=== PATIENT | female | born 1965 | race Caucasian/White ===

== ENCOUNTER 2017-09-08 14:20 | Emergency (ER) | payer BC ==
[2017-09-08] MEDS ORDERED: SODIUM CHLORIDE 0.9% 500 ML IV STA (14:40)
[2017-09-08] MEDS ORDERED: ONDANSETRON 4 MG/2 ML VIAL IVP STA (14:40)
--- NOTE | 2017-09-08 14:44 | ED ---
General Adult HPI - General Chief complaint: Abdominal Pain Stated complaint: Abd pain Time Seen by Provider: 09/08/17 14:28 Source: patient, RN notes reviewed Mode of arrival: ambulatory Limitations: no limitations - History of Present Illness Initial comments: And history of present illness this is a 51-year-old female complaint of discomfort to her left anterior flank area. It occurred while doing her job, pushing bruising. She states - Related Data Home Medications Medication Instructions Recorded Confirmed Levothyroxine Sodium [Synthroid] 200 mcg PO DAILY 09/08/17 09/08/17 Allergies Allergy/AdvReac Type Severity Reaction Status Date / Time No Known Allergies Allergy Verified 09/08/17 14:44 Review of Systems ROS Statement: Those systems with pertinent positive or pertinent negative responses have been documented in the HPI. Pain persists. Denies ever having had any problems like this before denies trouble urinating or bowel movements both of which she did today without difficulty. No neuro deficits. All systems were reviewed Past medical problems significant for hypothyroidism and ovarian cyst. Surgeries ovarian cyst and tonsillectomy. Family history sister had breast cancer. Patient has no ALLERGIES nonsmoker. Drinks alcohol rarely socially. 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 Denies hurting himself at work. ROS Other: All systems not noted in ROS Statement are negative. Past Medical History Past Medical History: Thyroid Disorder Additional Past Medical History / Comment(s): ovarian cysts History of Any Multi-Drug Resistant Organisms: None Reported Additional Past Surgical History / Comment(s): ovarian cyst removal Past Psychological History: No Psychological Hx Reported Smoking Status: Never smoker Past Alcohol Use History: None Reported Past Drug Use History: None Reported General Exam - General Exam Comments Initial Comments: General: The patient is awake and alert, in no distress, and does not appear acutely ill. Here because of vomiting once with left lateral mid abdominal pain. Vital signs temperature 97.7 pulse 60 respiratory rate 20 pulse ox 96. Room air blood pressure 174/79. Eye: Pupils are equal, round and reactive to light, extra-ocular movements are intact ; there is normal conjunctiva bilaterally. No signs of icterus. Ears, nose, mouth and throat: There are moist mucous membranes and no oral lesions. Neck: The neck is supple, there is no tenderness or JVD. Cardiovascular: There is a regular rate and rhythm. No murmur, rub or gallop is appreciated. Respiratory: Lungs are clear to auscultation, respirations are non-labored, breath sounds are equal. No wheezes, stridor, rales, or rhonchi. Gastrointestinal: Soft, non-distended, non-tender abdomen without masses or organomegaly noted. There is no rebound or guarding present. No CVA tenderness. Bowel sounds are unremarkable. Complains of discomfort to her left lateral mid abdomen. Back: There is no tenderness to palpation in the midline. There is no obvious deformity. No rashes noted. Early shingles was discussed. Early shingles was discussed. Musculoskeletal: Normal ROM, no tenderness, There is no pedal edema. There is no calf tenderness or swelling. Sensation intact. Pulses equal bilaterally 2+. Neurological: CN II-XII intact, There are no obvious motor or sensory deficits. Coordination appears grossly intact. Speech is normal. Skin: Skin is warm and dry and no rashes or lesions are noted. Psychiatric: Cooperative, appropriate mood & affect, normal judgment. Limitations: no limitations Course Vital Signs 09/08/17 14:23 Temperature 97.5 F L Pulse Rate 60 Respiratory 20 Rate Blood Pressure 174/79 O2 Sat by Pulse 96 Oximetry Medical Decision Making - Medical Decision Making Medical decision making; the patient is a 51-year-old female scone the emergency room because of several hours of left mid lateral flank area pain. Vomited once. X-rays of the abdomen were done and reviewed by radiologist his findings are there is no sign of intestinal obstruction or pneumoperitoneum. Fecal pattern is normal. There are no pathologic calcifications over the kidneys. Impression; nonacute abdomen. There is clearing of the intestinal ileus compared to old exam. As read by Dr. Blanchard Show white count of 11 hemoglobin 12 hematocrit 36, potassium 4.5. BUN 21 creatinine 0.6 GFR greater than 60. Amylase lipase normal limits. Glucose 126. Urine shows 1 red 1 white. Urine test was negative. Examination patient reports she's having no pain whatsoever. Sometimes it, comes and goes while in emergency room. Patient denying any nausea vomiting. The plan at this time is for the patient be discharged home advised to increase her fluid intake. Watch her urine for change in color. Tylenol or ibuprofen for discomfort. She is to return emergency room if her pain returns or increases. Otherwise follow-up with her family physician. She'll be given off or slipped today. - Lab Data Result diagrams: 09/08/17 14:49 09/08/17 14:49 Lab Results 09/08/17 09/08/17 09/08/17 Range/Units 14:49 14:49 14:49 WBC 11.5 H (3.8-10.6) k/uL RBC 4.62 (3.80-5.40) m/uL Hgb 12.1 (11.4-16.0) gm/dL Hct 36.4 (34.0-46.0) % MCV 78.7 L (80.0-100.0) fL MCH 26.1 (25.0-35.0) pg MCHC 33.2 (31.0-37.0) g/dL RDW 14.8 (11.5-15.5) % Plt Count 191 (150-450) k/uL Neutrophils % 83 % Lymphocytes % 9 % Monocytes % 4 % Eosinophils % 2 % Basophils % 1 % Neutrophils # 9.5 H (1.3-7.7) k/uL Lymphocytes # 1.0 (1.0-4.8) k/uL Monocytes # 0.5 (0-1.0) k/uL Eosinophils # 0.3 (0-0.7) k/uL Basophils # 0.1 (0-0.2) k/uL Sodium 139 (137-145) mmol/L Potassium 4.5 (3.5-5.1) mmol/L Chloride 105 (98-107) mmol/L Carbon Dioxide 23 (22-30) mmol/L Anion Gap 11 mmol/L BUN 21 H (7-17) mg/dL Creatinine 0.60 (0.52-1.04) mg/dL Est GFR (MDRD) Af Amer >60 (>60 ml/min/1.73 sqM) Est GFR (MDRD) Non-Af >60 (>60 ml/min/1.73 sqM) Glucose 126 H (74-99) mg/dL Plasma Lactic Acid Kip 1.0 (0.7-2.0) mmol/L Calcium 9.4 (8.4-10.2) mg/dL Total Bilirubin 0.3 (0.2-1.3) mg/dL AST 26 (14-36) U/L ALT 39 (9-52) U/L Alkaline Phosphatase 69 (38-126) U/L Total Protein 7.2 (6.3-8.2) g/dL Albumin 4.3 (3.5-5.0) g/dL Amylase 42 (30-110) U/L Lipase 90 (23-300) U/L Urine Color Urine Appearance (Clear) Urine pH (5.0-8.0) Ur Specific Shepherd (1.001-1.035) Urine Protein (Negative) Urine Glucose (UA) (Negative) Urine Ketones (Negative) Urine Blood (Negative) Urine Nitrite (Negative) Urine Bilirubin (Negative) Urine Urobilinogen (<2.0) mg/dL Ur Leukocyte Esterase (Negative) Urine RBC (0-5) /hpf Urine WBC (0-5) /hpf Ur Squamous Epith Cells (0-4) /hpf Urine Bacteria (None) /hpf Hyaline Casts (0-2) /lpf Urine Mucus (None) /hpf Urine HCG, Qual (Not Detectd) 09/08/17 09/08/17 Range/Units 15:20 15:20 WBC (3.8-10.6) k/uL RBC (3.80-5.40) m/uL Hgb (11.4-16.0) gm/dL Hct (34.0-46.0) % MCV (80.0-100.0) fL MCH (25.0-35.0) pg MCHC (31.0-37.0) g/dL RDW (11.5-15.5) % Plt Count (150-450) k/uL Neutrophils % % Lymphocytes % % Monocytes % % Eosinophils % % Basophils % % Neutrophils # (1.3-7.7) k/uL Lymphocytes # (1.0-4.8) k/uL Monocytes # (0-1.0) k/uL Eosinophils # (0-0.7) k/uL Basophils # (0-0.2) k/uL Sodium (137-145) mmol/L Potassium (3.5-5.1) mmol/L Chloride (98-107) mmol/L Carbon Dioxide (22-30) mmol/L Anion Gap mmol/L BUN (7-17) mg/dL Creatinine (0.52-1.04) mg/dL Est GFR (MDRD) Af Amer (>60 ml/min/1.73 sqM) Est GFR (MDRD) Non-Af (>60 ml/min/1.73 sqM) Glucose (74-99) mg/dL Plasma Lactic Acid Kip (0.7-2.0) mmol/L Calcium (8.4-10.2) mg/dL Total Bilirubin (0.2-1.3) mg/dL AST (14-36) U/L ALT (9-52) U/L Alkaline Phosphatase (38-126) U/L Total Protein (6.3-8.2) g/dL Albumin (3.5-5.0) g/dL Amylase (30-110) U/L Lipase (23-300) U/L Urine Color Yellow Urine Appearance Clear (Clear) Urine pH 5.0 (5.0-8.0) Ur Specific Shepherd 1.022 (1.001-1.035) Urine Protein Negative (Negative) Urine Glucose (UA) Negative (Negative) Urine Ketones Negative (Negative) Urine Blood Small H (Negative) Urine Nitrite Negative (Negative) Urine Bilirubin Negative (Negative) Urine Urobilinogen <2.0 (<2.0) mg/dL Ur Leukocyte Esterase Negative (Negative) Urine RBC 1 (0-5) /hpf Urine WBC 1 (0-5) /hpf Ur Squamous Epith Cells 1 (0-4) /hpf Urine Bacteria Rare H (None) /hpf Hyaline Casts 6 H (0-2) /lpf Urine Mucus Rare H (None) /hpf Urine HCG, Qual Not Detected (Not Detectd) Disposition Clinical Impression: Abdominal cramping Disposition: HOME SELF-CARE Condition: Good Instructions: Abdominal Pain (ED), Flank Pain (ED) Additional Instructions: Use Tylenol or ibuprofen for mild discomfort. Return emergency room if he develop any significant change in your discomfort. Follow-up with your family doctor. Referrals: Samuel Melgar MD [Primary Care Provider] - 1-2 days Time of Disposition: 15:55
[2017-09-08 15:10] LABS: Basophils # (A) 0.1 k/uL (0-0.2); Basophils % (A) 1 %; Eosinophils # (A) 0.3 k/uL (0-0.7); Eosinophils % (A) 2 %; HCT 36.4 % (34.0-46.0); HGB 12.1 gm/dL (11.4-16.0); Lymphocytes % (A) 9 %; MCH 26.1 pg (25.0-35.0); MCHC 33.2 g/dL (31.0-37.0); MCV 78.7 fL (80.0-100.0); Mean Platelet Volume 7.2; Monocytes # (A) 0.5 k/uL (0-1.0); Monocytes % (A) 4 %; Neutrophils # (A) 9.5 k/uL (1.3-7.7); Neutrophils % (A) 83 %; Platelet Count 191 k/uL (150-450); RBC 4.62 m/uL (3.80-5.40); RDW 14.8 % (11.5-15.5); WBC 11.5 k/uL (3.8-10.6)
--- NOTE | 2017-09-08 15:17 | XR ---
EXAMINATION TYPE: XR abdomen 2V DATE OF EXAM: 09/08/2017 COMPARISON: 04/07/2010 HISTORY: Pain TECHNIQUE: 3 views FINDINGS: There is no sign of intestinal obstruction or pneumoperitoneum. Fecal pattern is normal. Th ere are no pathologic calcifications over the kidneys. IMPRESSION: Nonacute abdomen. There is clearing of the intestinal ileus compared to old exam.
[2017-09-08 15:19] LABS: ALT 39 U/L (9-52); AST 26 U/L (14-36); Albumin 4.3 g/dL (3.5-5.0); Alkaline Phosphatase 69 U/L (38-126); Amylase 42 U/L (30-110); Anion Gap 11 mmol/L; Blood Urea Nitrogen 21 mg/dL (7-17); Calcium 9.4 mg/dL (8.4-10.2); Carbon Dioxide 23 mmol/L (22-30); Chloride 105 mmol/L (98-107); Glucose 126 mg/dL (74-99); Lipase 90 U/L (23-300); Potassium 4.5 mmol/L (3.5-5.1); Sodium 139 mmol/L (137-145); Total Bilirubin 0.3 mg/dL (0.2-1.3); Total Protein 7.2 g/dL (6.3-8.2)
[2017-09-08 15:39] LABS: Appearance,Urine Clear (Clear); Bacteria,Urine Rare /hpf; Bilirubin,Urine Negative (Negative); Blood,Urine Small (Negative); Color,Urine Yellow; Glucose,Urine (UA) Negative (Negative); Hyaline Casts,Urine 6 /lpf (0-2); Ketones,Urine Negative (Negative); Leukocyte Esterase,Urine Negative (Negative); Mucus,Urine Rare /hpf; Nitrite,Urine Negative (Negative); Protein,Urine Negative (Negative); RBC,Urine 1 /hpf (0-5); Specific Gravity,Urine 1.022 (1.001-1.035); Squamous Epithelial Cell,Urine 1 /hpf (0-4); Urobilinogen,Urine <2.0 mg/dL (<2.0); WBC,Urine 1 /hpf (0-5)
[2017-09-08 16:09] VITALS: BP 133/62; PULSE 87; RESP 16; TEMP 97.8
== END 2017-09-08 16:20 | disposition home or self-care (01) ==
LOC: EC 14:20
DX: R10.9 Unspecified abdominal pain (principal); R11.10 Vomiting, unspecified; E03.9 Hypothyroidism, unspecified; Z79.899 Other long term (current) drug therapy
CPT/HCPCS: 36415; 80053; 82150; 83605; 83690; 85025; 81001; 81025; 87086; 74020; 99284; 96374; 96361; J2405

== ENCOUNTER 2018-08-04 04:09 | Emergency (ER) | payer BC ==
[2018-08-04 04:15] VITALS: TEMP 98.7
[2018-08-04] MEDS ORDERED: ONDANSETRON 4 MG/2 ML VIAL IVP STA (04:53)
--- NOTE | 2018-08-04 04:57 | ED ---
Chest Pain HPI - General Chief Complaint: Chest Pain Stated Complaint: Chest pain, flu Time Seen by Provider: 08/04/18 04:41 Source: patient Mode of arrival: ambulatory Limitations: no limitations - History of Present Illness Initial Comments: This patient's 52-year-old woman who presents to be evaluated early for palpitations that been occurring intermittently over the past 2 days. She states the palpitations usually have been associated with episodes of nausea and vomiting. She also has felt some chest sensations mainly a pounding and indicating the substernal area. She states that she thought she had "flu." She indicates that the first thing making mom was nausea and vomiting. She has had about 2-3 episodes of this each day, usually after she takes some oral intake. Patient denies abdominal pain or change in bowel movements. She is not having any dyspnea, diaphoresis or other associated symptoms. MD Complaint: chest pain Onset/Timin -: days(s) Onset: during rest Pain Location: substernal Pain Radiation: none Severity: mild Quality: tightness Consistency: now resolved Improves With: nothing Worsens With: nothing Anginal Symptoms: nausea, vomiting Other Symptoms: palpitations Treatments Prior to Arrival: none - Related Data Home Medications Medication Instructions Recorded Confirmed Levothyroxine Sodium [Synthroid] 200 mcg PO DAILY 09/08/17 09/08/17 Previous Rx's Medication Instructions Recorded Ondansetron Odt [Zofran ODT] 4 mg PO Q8HR PRN #10 tab 08/04/18 Allergies Allergy/AdvReac Type Severity Reaction Status Date / Time No Known Allergies Allergy Verified 08/04/18 04:15 Review of Systems ROS Statement: Those systems with pertinent positive or pertinent negative responses have been documented in the HPI. ROS Other: All systems not noted in ROS Statement are negative. Constitutional: Denies: fever, chills Respiratory: Denies: cough, dyspnea Cardiovascular: Reports: palpitations. Denies: dyspnea on exertion, orthopnea, edema, syncope Gastrointestinal: Reports: nausea, vomiting. Denies: abdominal pain, diarrhea, hematemesis, melena, hematochezia Genitourinary: Denies: dysuria, hematuria Musculoskeletal: Denies: back pain Skin: Denies: rash Neurological: Denies: headache, weakness EKG Findings - EKG Results: EKG: interpreted by KATHY VINSON, sinus rhythm (Rate 74 bpm), normal axis, normal QRS, normal ST/T, no acute changes Past Medical History Past Medical History: Thyroid Disorder Additional Past Medical History / Comment(s): ovarian cysts History of Any Multi-Drug Resistant Organisms: None Reported Additional Past Surgical History / Comment(s): ovarian cyst removal Past Psychological History: No Psychological Hx Reported Smoking Status: Never smoker Past Alcohol Use History: Occasional Past Drug Use History: None Reported General Exam Limitations: no limitations General appearance: alert, in no apparent distress Head exam: Present: atraumatic, normocephalic Eye exam: Present: normal appearance. Absent: scleral icterus, conjunctival injection ENT exam: Present: normal oropharynx Neck exam: Present: normal inspection Respiratory exam: Present: normal lung sounds bilaterally. Absent: respiratory distress, wheezes, rales, rhonchi, stridor Cardiovascular Exam: Present: regular rate, normal rhythm, normal heart sounds. Absent: systolic murmur, diastolic murmur, rubs, gallop GI/Abdominal exam: Present: soft. Absent: distended, tenderness, guarding, rebound, rigid, mass Extremities exam: Present: normal inspection, normal capillary refill. Absent: pedal edema, calf tenderness Back exam: Present: normal inspection. Absent: CVA tenderness (R), CVA tenderness (L) Neurological exam: Present: alert Skin exam: Present: warm, dry, intact, normal color. Absent: rash Course Vital Signs 08/04/18 08/04/18 04:12 05:07 Temperature 98.7 F Pulse Rate 83 78 Respiratory 18 16 Rate Blood Pressure 140/83 130/78 O2 Sat by Pulse 96 98 Oximetry Disposition Clinical Impression: Gastroenteritis Disposition: HOME SELF-CARE Condition: Good Instructions: Gastroenteritis (ED) Prescriptions: Ondansetron Odt [Zofran ODT] 4 mg PO Q8HR PRN #10 tab PRN Reason: Nausea Is patient prescribed a controlled substance at d/c from ED?: No Referrals: Samuel Melgar MD [Primary Care Provider] - 1-2 days
[2018-08-04 05:03] LABS: Basophils # (A) 0.1 k/uL (0-0.2); Basophils % (A) 1 %; Eosinophils # (A) 0.1 k/uL (0-0.7); Eosinophils % (A) 2 %; HCT 42.8 % (34.0-46.0); HGB 14.5 gm/dL (11.4-16.0); Lymphocytes # (A) 2.1 k/uL (1.0-4.8); Lymphocytes % (A) 23 %; MCH 26.6 pg (25.0-35.0); MCHC 33.8 g/dL (31.0-37.0); MCV 78.7 fL (80.0-100.0); Mean Platelet Volume 7.2; Monocytes # (A) 0.9 k/uL (0-1.0); Monocytes % (A) 9 %; Neutrophils # (A) 6.1 k/uL (1.3-7.7); Neutrophils % (A) 64 %; Platelet Count 255 k/uL (150-450); RBC 5.44 m/uL (3.80-5.40); RDW 13.4 % (11.5-15.5); WBC 9.4 k/uL (3.8-10.6)
[2018-08-04 05:08] VITALS: BP 130/78; PULSE 78; RESP 16
[2018-08-04 05:11] LABS: ALT 21 U/L (9-52); AST 19 U/L (14-36); Albumin 4.4 g/dL (3.5-5.0); Alkaline Phosphatase 64 U/L (38-126); Anion Gap 13 mmol/L; Blood Urea Nitrogen 23 mg/dL (7-17); Carbon Dioxide 26 mmol/L (22-30); Chloride 97 mmol/L (98-107); Glucose 116 mg/dL (74-99); Magnesium 2.1 mg/dL (1.6-2.3); Potassium 3.7 mmol/L (3.5-5.1); Sodium 136 mmol/L (137-145); Total Bilirubin 0.8 mg/dL (0.2-1.3); Total Protein 7.5 g/dL (6.3-8.2)
--- NOTE | 2018-08-04 05:23 | XR ---
EXAM: XR Chest, 1 View CLINICAL HISTORY: chest pain TECHNIQUE: Frontal view of the chest. COMPARISON: No relevant prior studies available. FINDINGS: Lungs: Mild peribronchial cuffing may represent mild pulmonary interstitial edema and/or infectious/inflammatory airways disease. Pleural space: Unremarkable. No pneumothorax. No pleural effusions. Heart: Unremarkable. No cardiomegaly. Mediastinum: Small hiatal hernia is suggested. Bones/joints: Unremarkable. IMPRESSION: 1. Mild peribronchial cuffing may represent mild pulmonary interstitial edema and/or infectious/inflammatory airways disease. PA and lateral views of the chest may be obtained for further evaluation. 2. Small hiatal hernia.
[2018-08-04 05:26] LABS: Creatine Kinase 46 U/L (30-135)
[2018-08-04 05:27] LABS: INR 1.2 (<1.2); Partial Thromboplastin Time 24.6 sec (22.0-30.0); Prothrombin Time 11.5 sec (9.0-12.0)
[2018-08-04 05:39] LABS: Creatine Kinase MB 1.4 ng/mL (0.0-2.4); Troponin I <0.012 ng/mL (0.000-0.034)
== END 2018-08-04 06:22 | disposition home or self-care (01) ==
LOC: EC 04:09
DX: K52.9 Noninfective gastroenteritis and colitis, unspecified (principal); E07.9 Disorder of thyroid, unspecified; Z79.899 Other long term (current) drug therapy
CPT/HCPCS: 36415; 93005; 80053; 82550; 82553; 83735; 84484; 85025; 85610; 85730; 71045; 99285; 96374; J2405

== ENCOUNTER 2020-10-26 08:30 | Day surgery (SDC) | payer BC ==
[2020-10-22 10:35] VITALS: BMI 40.3
[~2020-10-26 08:30] MED LIST: LACTATED RINGERS 1,000 ML IV SCH; LIDOCAINE 1% (10MG/ML) FOR IV START INTRADERMA PRN; MIDAZOLAM 2 MG/2 ML VIAL IV PRN
[2020-10-26 09:56] VITALS: TEMP 97.8
--- NOTE | 2020-10-26 11:10 | P.PCN ---
Date of Procedure: 10/26/20 Description of Procedure: BRIEF HISTORY: Patient is a 54-year-old male presenting for esophagogastroduodenoscopy for evaluation of symptoms of GERD. Patient reports a long-standing history of reflux. Previously the patient was on Prilosec therapy with good control of symptoms. Currently is on famotidine and reports some breakthrough symptoms.. PROCEDURE PERFORMED: Esophagogastroduodenoscopy with biopsy. PREOPERATIVE DIAGNOSIS: GERD with esophagitis, reflux. ESTIMATED BLOOD LOSS: Minimal. IV sedation per anesthesia. PROCEDURE: After informed consent was obtained, the patient was brought into the endoscopy unit. IV sedation was administered by Anesthesia under continuous monitoring. Initially the Olympus GIF-190 video endoscope was inserted into the mouth. Esophagus intubated without any difficulty. It was gradually advanced into the stomach and duodenum and carefully examined. The bulb and the second part of the duodenum appeared normal, with biopsies taken. The scope at this time was withdrawn to the stomach, adequately insufflated with air, and upon careful examination, mucosa of the antrum, body, cardia and the fundus appeared normal, except for some mild scattered erythema in the antrum and body suggestive of mild gastritis with biopsies taken. The scope was then withdrawn into the esophagus. The GE junction was located at 38 cm from the incisors, with 2 cm hiatal hernia noted and biopsies taken of the GE junction. The esophagus appeared normal. There were no erosions or ulcerations seen and the patient tolerated the procedure well. IMPRESSION: 1. Mild gastritis. 2. Small hiatal hernia. 3. Biopsies of the duodenum, antrum and body and GE junction. RECOMMENDATIONS: The findings of this examination were discussed with the patient and his family. Okay to resume diet. Okay to resume medications. Await pathology from biopsies. GERD lifestyle modifications discussed.
[2020-10-26] MEDS ORDERED: PROPOFOL 10 MG/ML 20 ML VIAL IV ONE (11:42)
--- NOTE | 2020-10-26 12:22 | P.PCN ---
Date of Procedure: 10/26/20 Description of Procedure: BRIEF HISTORY: Patient is a 54-year-old female presenting for outpatient colonoscopy for screening for malignant neoplasm of the colon. No prior colonoscopies reported. No family history of colon cancer. PROCEDURE PERFORMED: Colonoscopy with polypectomy. PREOPERATIVE DIAGNOSIS: Screening for malignant neoplasm colon, no prior colonoscopy. ESTIMATED BLOOD LOSS: Minimal. IV sedation per Anesthesia. PROCEDURE: After informed consent was obtained, the patient, was brought into the endoscopy unit. IV sedation was administered by Anesthesia under continuous monitoring. Digital rectal examination was normal. Initially the Olympus CF-190 flexible video colonoscope was then inserted in the rectum, gradually advanced into the cecum without any difficulty. Careful examination was performed as the scope was gradually being withdrawn. Ileocecal valve and the appendiceal orifice were visualized and appeared normal. Prep was excellent. Mucosa of the cecum, ascending colon, transverse colon, descending colon, sigmoid colon, and rectum appeared normal. 2 polyps removed with cold snare polypectomy measuring 10 mm in size from the ascending colon and 6 mm in size from the sigmoid colon. Retroflexion was performed in the rectum and no lesions were seen, low-grade internal hemorrhoids. The patient tolerated the procedure well. IMPRESSION: Cold snare polypectomy of polyps from the ascending colon and sigmoid colon. Internal hemorrhoids. RECOMMENDATIONS: Findings of this examination were discussed with the patient. Okay to resume diet. Okay to resume medications. No pathology from polypectomies. Recommend repeat colonoscopy in 3 years for high-risk: Polyps pending pathology from polypectomies
[2020-10-26 12:53] VITALS: BP 120/72; PULSE 76; RESP 20
== END 2020-10-26 13:27 | disposition home or self-care (01) ==
LOC: ORWHC2ENDO 08:30
PROVIDERS: ATTEND Internal Medicine
DX: Z12.11 Encounter for screening for malignant neoplasm of colon (principal); K63.5 Polyp of colon; K63.89 Other specified diseases of intestine; D12.2 Benign neoplasm of ascending colon; K64.8 Other hemorrhoids; E07.9 Disorder of thyroid, unspecified; Z79.899 Other long term (current) drug therapy; Z79.890 Hormone replacement therapy; Z98.890 Other specified postprocedural states
CPT/HCPCS: 81025; 88305; 84703; 45385; J2704

== ENCOUNTER 2023-12-03 10:50 | Emergency (ER) | payer BC ==
[2023-12-03 10:57] LABS: Glucose,Whole Blood 108 mg/dL (70-110)
--- NOTE | 2023-12-03 11:10 | ED ---
Recheck HPI - General Chief Complaint: Recheck/Abnormal Lab/Rx Stated Complaint: low blood sugar Time Seen by Provider: 12/03/23 11:08 Source: patient, RN notes reviewed Mode of arrival: ambulatory Limitations: no limitations - History of Present Illness Initial Comments: Patient is a 57-year-old female presenting to the ER with a chief complaint of hypoglycemia. Patient states she woke up this morning and took her blood sugar and it was found to be 66. She states that she "freaked out" and came to the ER. Patient is only taking metformin for diabetes. No insulin. She states her last dose was this morning. She does report she has recently has felt short of breath and mild cough. She reports she takes a water pill for peripheral edema. No history of heart failure. Denies any fevers, chills, cough, congestion, chest pain, abdominal pain, constipation/diarrhea, urinary complaints. Patient states she currently feels fine. BS in triage 108. - Related Data Home Medications Medication Instructions Recorded Confirmed Levothyroxine Sodium [Synthroid] 200 mcg PO DAILY 09/08/17 10/26/20 Cholecalciferol [Vitamin D3 (25 25 mcg PO DAILY 10/22/20 10/22/20 Mcg = 1000 Iu)] Ferosul 65mg 65 mg PO DAILY 10/22/20 10/22/20 Sertraline [Zoloft] 50 mg PO DAILY 10/22/20 10/26/20 Previous Rx's Medication Instructions Recorded Azithromycin [Zithromax Z Pack] 0 tab PO DIRECTED #6 tab 12/03/23 Allergies Allergy/AdvReac Type Severity Reaction Status Date / Time No Known Allergies Allergy Verified 12/03/23 10:57 Review of Systems ROS Statement: Those systems with pertinent positive or pertinent negative responses have been documented in the HPI. ROS Other: All systems not noted in ROS Statement are negative. Past Medical History Past Medical History: Osteoarthritis (OA), Thyroid Disorder Additional Past Medical History / Comment(s): ovarian cysts History of Any Multi-Drug Resistant Organisms: None Reported Additional Past Surgical History / Comment(s): ovarian cyst removal Past Anesthesia/Blood Transfusion Reactions: No Reported Reaction, Motion Sickness Past Psychological History: Depression Smoking Status: Never smoker Past Alcohol Use History: Occasional Past Drug Use History: None Reported - Past Family History Sister(s) Family Medical History: Cancer Additional Family Medical History / Comment(s): breast cancer General Exam Limitations: no limitations General appearance: alert, in no apparent distress Head exam: Present: atraumatic, normocephalic, normal inspection Eye exam: Present: normal appearance, PERRL, EOMI. Absent: scleral icterus, conjunctival injection, periorbital swelling ENT exam: Present: normal exam, normal oropharynx, mucous membranes moist, TM's normal bilaterally Neck exam: Present: normal inspection. Absent: tenderness, meningismus, lymphadenopathy Respiratory exam: Present: normal lung sounds bilaterally. Absent: respiratory distress, wheezes, rales, rhonchi, stridor Cardiovascular Exam: Present: regular rate, normal rhythm, normal heart sounds. Absent: systolic murmur, diastolic murmur, rubs, gallop, clicks GI/Abdominal exam: Present: soft, normal bowel sounds. Absent: distended, tenderness, guarding, rebound, rigid Neurological exam: Present: alert, oriented X3, CN II-XII intact Psychiatric exam: Present: normal affect, normal mood Skin exam: Present: warm, dry, intact, normal color. Absent: rash Course Vital Signs 12/03/23 12/03/23 10:54 15:25 Temperature 98 F 98.0 F Pulse Rate 96 86 Respiratory 18 18 Rate Blood Pressure 157/91 148/90 O2 Sat by Pulse 98 99 Oximetry Medical Decision Making - Medical Decision Making Was pt. sent in by a medical professional or institution (, PA, ECONOMETRICIAN, urgent care, hospital, or longterm...) When possible be specific @ -No Did you speak to anyone other than the patient for history (EMS, parent, family, police, friend...)? What history was obtained from this source @ -No Did you review nursing and triage notes (agree or disagree)? Why? @ -I reviewed and agree with nursing and triage notes Were old charts reviewed (outside hosp., previous admission, EMS record, old EKG, old radiological studies, urgent care reports/EKG's, longterm records)? Report findings @ -No old charts were reviewed Differential Diagnosis (chest pain, altered mental status, abdominal pain women, abdominal pain men, vaginal bleeding, weakness, fever, dyspnea, syncope, headache, dizziness, GI bleed, back pain, seizure, CVA, palpatations, mental health, musculoskeletal)? @ -MDM differential Dyspnea:Coronary syndrome, arrhythmia, tamponade, asthma, COPD, pulmonary embolism, pneumonia, pneumothorax, pulmonary effusion, anaphylaxis, diabetic ketoacidosis, flailed chest, pulmonary contusion, diaphragmatic rupture, anemia, neuromuscular, this is not meant to be an all- inclusive list. EKG interpreted by me (3pts min.). @ -As above X-rays interpreted by me (1pt min.). @ -Chest x-ray significant for bilateral lower lobe infiltrates with a small left pleural effusion. CT interpreted by me (1pt min.). @ -CT chest significant for consolidated changes of the left lung base concerning of pneumonia. Mild cardiomegaly. Hepatic steatosis. Moderate hiatal hernia and splenomegaly. U/S interpreted by me (1pt. min.). @ -None done What testing was considered but not performed or refused? (CT, X-rays, U/S, labs)? Why? @ -None What meds were considered but not given or refused? Why? @ -None Did you discuss the management of the patient with other professionals (professionals i.e. , PA, ECONOMETRICIAN, lab, RT, psych nurse, social science analyst, lens engraver, teacher, electronic warfare officer, dependency case manager)? Give summary @ -No Was smoking cessation discussed for >3mins.? @ -No Was critical care preformed (if so, how long)? @ -No Were there social determinants of health that impacted care today? How? (Homelessness, low income, unemployed, alcoholism, drug addiction, transportation, low edu. Level, literacy, decrease access to med. care, [facility], rehab)? @ -No Was there de-escalation of care discussed even if they declined (Discuss DNR or withdrawal of care, Hospice)? DNR status @ -No What co-morbidities impacted this encounter? (DM, HTN, Smoking, COPD, CAD, Cancer, CVA, ARF, Chemo, Hep., AIDS, mental health diagnosis, sleep apnea, morbid obesity)? @ -obese, thyroid disorder Was patient admitted / discharged? Hospital course, mention meds given and route, prescriptions, significant lab abnormalities, going to OR and other pertinent info. @ -Discharge. Patient is a 57-year-old female presenting to the ER with a chief complaint of hypoglycemia and shortness of breath. History and physical exam completed. Vitals stable. Patient no signs of acute distress and nontoxic-appearing. Lung sounds clear to auscultation bilaterally. Labs obtained significant for hgb 8.9 patient denies any current bleeding. Potassium 3.4. TSH 5.4 and free T4 1.16. Influenza, RSV, COVID-negative. Chest x-ray showed findings consistent with pneumonia. Due to atypical appearance CT chest was performed which favors pneumonia with consolidated features of left lower lung and small left pleural effusion. EKG showing normal sinus rhythm with no acute ST segment or T wave abnormalities. Results discussed with patient, all questions answered. Admission was offered patient refused. Patient states she can follow-up with PCP in the next couple of days. Patient received IV Rocephin and was prescribed azithromycin. Strict return parameters discussed. Patient discharged stable condition with follow-up to PCP. Patient verbally expressed understanding and agreement with care plan. Case discussed with ED attending, Dr. Shields. Undiagnosed new problem with uncertain prognosis? @ -No Drug Therapy requiring intensive monitoring for toxicity (Heparin, Nitro, Insulin, Cardizem)? @ -No Were any procedures done? @ -No Diagnosis/symptom? @ -Pneumonia Acute, or Chronic, or Acute on Chronic? @ -Acute Uncomplicated (without systemic symptoms) or Complicated (systemic symptoms)? @ -Uncomplicated Side effects of treatment? @ -No Exacerbation, Progression, or Severe Exacerbation? @ -No Poses a threat to life or bodily function? How? (Chest pain, USA, NH, pneumonia, PE, COPD, DKA, ARF, appy, cholecystitis, CVA, Diverticulitis, Homicidal, Suicidal, threat to staff... and all critical care pts) @ -Pneumonia can lead to hypoxia and/or sepsis which is life threatening. - Lab Data Result diagrams: 12/03/23 12:19 12/03/23 12:19 Lab Results 12/03/23 12/03/23 12/03/23 Range/Units 10:54 12:19 12:19 WBC 7.9 (3.8-10.6) k/uL RBC 3.89 (3.80-5.40) m/uL Hgb 8.9 L (11.4-16.0) gm/dL Hct 28.7 L (34.0-46.0) % MCV 73.7 L (80.0-100.0) fL MCH 22.9 L (25.0-35.0) pg MCHC 31.1 (31.0-37.0) g/dL RDW 15.7 H (11.5-15.5) % Plt Count 334 (150-450) k/uL MPV 6.9 Neutrophils % 77 % Lymphocytes % 12 % Monocytes % 6 % Eosinophils % 3 % Basophils % 1 % Neutrophils # 6.1 (1.3-7.7) k/uL Lymphocytes # 0.9 L (1.0-4.8) k/uL Monocytes # 0.4 (0-1.0) k/uL Eosinophils # 0.3 (0-0.7) k/uL Basophils # 0.0 (0-0.2) k/uL Hypochromasia Marked Poikilocytosis Slight Microcytosis Slight Sodium 139 (137-145) mmol/L Potassium 3.4 L (3.5-5.1) mmol/L Chloride 102 (98-107) mmol/L Carbon Dioxide 32 H (22-30) mmol/L Anion Gap 5 mmol/L BUN 15 (7-17) mg/dL Creatinine 0.51 L (0.52-1.04) mg/dL Est GFR (CKD-EPI)AfAm >90 (>60 ml/min/1.73 sqM) Est GFR (CKD-EPI)NonAf >90 (>60 ml/min/1.73 sqM) Glucose 60 L (74-99) mg/dL POC Glucose (mg/dL) 108 (70-110) mg/dL POC Glu [employer] Field Technician ID [employer] Plasma Lactic Acid Kip (0.7-2.0) mmol/L Calcium 9.1 (8.4-10.2) mg/dL Total Bilirubin 0.3 (0.2-1.3) mg/dL AST 23 (14-36) U/L ALT 16 (4-34) U/L Alkaline Phosphatase 74 (38-126) U/L NT-Pro-B Natriuret Pep 61 pg/mL Total Protein 6.4 (6.3-8.2) g/dL Albumin 3.5 (3.5-5.0) g/dL TSH 5.420 H (0.465-4.680) mIU/L Free T4 1.16 (0.78-2.19) ng/dL Influenza Type A (PCR) (Not Detectd) Influenza Type B (PCR) (Not Detectd) RSV (PCR) (Not Detectd) SARS-CoV-2 (PCR) (Not Detectd) 12/03/23 12/03/23 Range/Units 12:19 12:19 WBC (3.8-10.6) k/uL RBC (3.80-5.40) m/uL Hgb (11.4-16.0) gm/dL Hct (34.0-46.0) % MCV (80.0-100.0) fL MCH (25.0-35.0) pg MCHC (31.0-37.0) g/dL RDW (11.5-15.5) % Plt Count (150-450) k/uL MPV Neutrophils % % Lymphocytes % % Monocytes % % Eosinophils % % Basophils % % Neutrophils # (1.3-7.7) k/uL Lymphocytes # (1.0-4.8) k/uL Monocytes # (0-1.0) k/uL Eosinophils # (0-0.7) k/uL Basophils # (0-0.2) k/uL Hypochromasia Poikilocytosis Microcytosis Sodium (137-145) mmol/L Potassium (3.5-5.1) mmol/L Chloride (98-107) mmol/L Carbon Dioxide (22-30) mmol/L Anion Gap mmol/L BUN (7-17) mg/dL Creatinine (0.52-1.04) mg/dL Est GFR (CKD-EPI)AfAm (>60 ml/min/1.73 sqM) Est GFR (CKD-EPI)NonAf (>60 ml/min/1.73 sqM) Glucose (74-99) mg/dL POC Glucose (mg/dL) (70-110) mg/dL POC Glu [employer] Field Technician ID Plasma Lactic Acid Kip 0.8 (0.7-2.0) mmol/L Calcium (8.4-10.2) mg/dL Total Bilirubin (0.2-1.3) mg/dL AST (14-36) U/L ALT (4-34) U/L Alkaline Phosphatase (38-126) U/L NT-Pro-B Natriuret Pep pg/mL Total Protein (6.3-8.2) g/dL Albumin (3.5-5.0) g/dL TSH (0.465-4.680) mIU/L Free T4 (0.78-2.19) ng/dL Influenza Type A (PCR) Not Detected (Not Detectd) Influenza Type B (PCR) Not Detected (Not Detectd) RSV (PCR) Not Detected (Not Detectd) SARS-CoV-2 (PCR) Not Detected (Not Detectd) - EKG Data -: EKG Interpreted by Me EKG Comments: EKG taken at 12: 39 normal sinus rhythm with no acute ST segment or T wave abnormalities. Ventricular rate 72, NH interval 159, QRS duration 90, QT/QTc 386/410. - Radiology Data Radiology results: report reviewed, image reviewed Disposition Clinical Impression: Pneumonia Disposition: HOME SELF-CARE Condition: Stable Instructions (If sedation given, give patient instructions): Community Acquired Pneumonia (ED) Additional Instructions: Please follow-up with PCP in the next 1 to 2 days. Complete full course of azithromycin. Return to the ER for any new or worsening concerns. Prescriptions: Azithromycin [Zithromax Z Pack] 0 tab PO DIRECTED #6 tab Is patient prescribed a controlled substance at d/c from ED?: No Referrals: Samuel Melgar MD [Primary Care Provider] - 1-2 days Time of Disposition: 14:59
[2023-12-03 11:33] VITALS: RESP 18
--- NOTE | 2023-12-03 12:02 | XR ---
EXAMINATION TYPE: XR chest 2V DATE OF EXAM: 12/03/2023 COMPARISON: 08/04/2018 TECHNIQUE: PA and lateral views submitted. HISTORY: Shortness of breath FINDINGS: Bilateral lower lobe infiltrates greater on the left with tiny effusion. No overt failure or pneumoth orax. Elevated hemidiaphragm on the left with reduced inspiration. IMPRESSION: 1. Bilateral lower lobe infiltrates greater on the left with small effusion. Favor pneumonia. CHF in the differential diagnosis.
[2023-12-03 12:43] LABS: Basophils % (A) 1 %; Eosinophils # (A) 0.3 k/uL (0-0.7); Eosinophils % (A) 3 %; HCT 28.7 % (34.0-46.0); HGB 8.9 gm/dL (11.4-16.0); Hypochromasia Marked; Lymphocytes # (A) 0.9 k/uL (1.0-4.8); Lymphocytes % (A) 12 %; MCH 22.9 pg (25.0-35.0); MCHC 31.1 g/dL (31.0-37.0); MCV 73.7 fL (80.0-100.0); Mean Platelet Volume 6.9; Microcytosis Slight; Monocytes # (A) 0.4 k/uL (0-1.0); Monocytes % (A) 6 %; Neutrophils # (A) 6.1 k/uL (1.3-7.7); Neutrophils % (A) 77 %; Platelet Count 334 k/uL (150-450); Poikilocytosis Slight; RBC 3.89 m/uL (3.80-5.40); RDW 15.7 % (11.5-15.5); WBC 7.9 k/uL (3.8-10.6)
[2023-12-03 13:05] LABS: ALT 16 U/L (4-34); AST 23 U/L (14-36); African American GFR (CKD) >90 (>60 ml/min/1.73 sqM); Albumin 3.5 g/dL (3.5-5.0); Alkaline Phosphatase 74 U/L (38-126); Anion Gap 5 mmol/L; Blood Urea Nitrogen 15 mg/dL (7-17); Calcium 9.1 mg/dL (8.4-10.2); Carbon Dioxide 32 mmol/L (22-30); Chloride 102 mmol/L (98-107); Glucose 60 mg/dL (74-99); Non-African American GFR(CKD) >90 (>60 ml/min/1.73 sqM); Potassium 3.4 mmol/L (3.5-5.1); Sodium 139 mmol/L (137-145); Total Bilirubin 0.3 mg/dL (0.2-1.3); Total Protein 6.4 g/dL (6.3-8.2)
[2023-12-03 13:11] LABS: NT-Pro-B-Type Natriuretic Pept 61 pg/mL
[2023-12-03] MEDS ORDERED: RX INFO: IV CONTRAST WAS GIVEN 1 EACH MISC MISCELLANE PRN (13:27)
--- NOTE | 2023-12-03 14:30 | CT ---
EXAMINATION TYPE: CT chest w con CT DLP: 651.1 mGycm, Automated exposure control for dose reduction was used. DATE OF EXAM: 12/03/2023 2:08 PM COMPARISON: Chest radiograph from same day CLINICAL INDICATION:Female, 57 years old with history of abnormal cxr- shortness of breath; PHH, abno rmal cxr- shortness of breath TECHNIQUE: Multiple axial images were obtained through the chest. Sagittal and coronal reformats were created for review. Contrast used:100 mL of Isovue 300 with IV Contrast (None if empty) Oral contrast used: (None if empty) FINDINGS: LUNGS/ PLEURA: Left base consolidation changes involving the lingula and left lower lobe. Low lung vo lumes. No pneumothorax pleural effusion. AIRWAY: Patent and unremarkable. HEART: Size within normal limits. MEDIASTINUM: No gross evidence of adenopathy. Moderate hiatal hernia. VASCULATURE: No aortic aneurysm. MUSCULOSKELETAL: No acute osseous abnormalities SOFT TISSUES/LYMPH NODES: Unremarkable. LOWER NECK: No significant findings. UPPER ABDOMEN: Spleen is enlarged for size measuring up to 14.5 cm. Diffuse low attenuation to liver parenchyma. IMPRESSION: 1. Consolidation changes in the left lung base concerning for pneumonia versus atelectasis. Correlat e clinically. 2. Mild cardiomegaly 3. Hepatic steatosis. 4. Moderate hiatal hernia. 5. Splenomegaly
[2023-12-03 14:33] LABS: T4, Free (Free Thyroxine) 1.16 ng/dL (0.78-2.19)
[2023-12-03] MEDS: cefTRIAXone IN SWFI 1,000 MG/10 ML SYRINGE IVP STA (15:15)
[2023-12-03 15:45] VITALS: BP 148/90; PULSE 86; TEMP 98
== END 2023-12-03 15:27 | disposition home or self-care (01) ==
LOC: EC 10:50
DX: J18.9 Pneumonia, unspecified organism (principal)
CPT/HCPCS: 36415; 93005; 84439; 83880; 80053; 84443; 83605; 85025; 84145; 87636; 71046; 71260; 99284; 96374; J0696; Q9967

== ENCOUNTER 2023-12-04 15:33 | Emergency (ER) | payer BC ==
[2023-12-04 16:03] VITALS: TEMP 97.3
[2023-12-04 16:13] LABS: Basophils # (A) 0.1 k/uL (0-0.2); Basophils % (A) 1 %; Eosinophils # (A) 0.3 k/uL (0-0.7); Eosinophils % (A) 3 %; HCT 28.4 % (34.0-46.0); HGB 8.7 gm/dL (11.4-16.0); Hypochromasia Marked; Lymphocytes # (A) 0.9 k/uL (1.0-4.8); Lymphocytes % (A) 9 %; MCH 22.6 pg (25.0-35.0); MCHC 30.6 g/dL (31.0-37.0); MCV 73.7 fL (80.0-100.0); Mean Platelet Volume 7.1; Microcytosis Slight; Monocytes # (A) 0.5 k/uL (0-1.0); Monocytes % (A) 5 %; Neutrophils # (A) 8.2 k/uL (1.3-7.7); Neutrophils % (A) 83 %; Platelet Count 349 k/uL (150-450); Poikilocytosis Slight; RBC 3.86 m/uL (3.80-5.40)
[2023-12-04 16:24] LABS: ALT 18 U/L (4-34); AST 29 U/L (14-36); African American GFR (CKD) >90 (>60 ml/min/1.73 sqM); Albumin 3.5 g/dL (3.5-5.0); Alkaline Phosphatase 78 U/L (38-126); Anion Gap 9 mmol/L; Blood Urea Nitrogen 12 mg/dL (7-17); Calcium 8.8 mg/dL (8.4-10.2); Carbon Dioxide 26 mmol/L (22-30); Chloride 101 mmol/L (98-107); Glucose 102 mg/dL (74-99); Non-African American GFR(CKD) >90 (>60 ml/min/1.73 sqM); Partial Thromboplastin Time 25.7 sec (22.0-30.0); Potassium 4.1 mmol/L (3.5-5.1); Prothrombin Time 11.3 sec (10.0-12.5); Sodium 136 mmol/L (137-145); Total Bilirubin 0.4 mg/dL (0.2-1.3); Total Protein 6.4 g/dL (6.3-8.2)
--- NOTE | 2023-12-04 16:28 | XR ---
EXAMINATION TYPE: XR chest 2V DATE OF EXAM: 12/04/2023 4:18 PM CLINICAL INDICATION:Female, 57 years old with history of difficulty breathing; [facility] COMPARISON: Chest radiographs from 12/03/2023. TECHNIQUE: XR chest 2V Frontal and lateral views of the chest. FINDINGS: Lungs/Pleura: There is no evidence of pleural effusion, focal consolidation, or pneumothorax. Pulmonary vascularity: Unremarkable. Heart/mediastinum: Cardiomediastinal silhouette is unremarkable. Musculoskeletal: No acute osseous pathology. IMPRESSION: 1. Cardiomegaly with mild pulmonary vascular prominence correlate with serum BNP. 2. Elevated left diaphragm, similar prior. Correlate for phrenic nerve injury.
--- NOTE | 2023-12-04 19:24 | ED ---
SOB HPI - General Chief Complaint: Shortness of Breath Stated Complaint: SOB Time Seen by Provider: 12/04/23 19:24 Source: patient Mode of arrival: ambulatory Limitations: no limitations - History of Present Illness Initial Comments: 57-year-old female presenting chief complaint of shortness of breath. Patient states that she was having difficulty catching her breath while at work today. She notes no chest pain. She was seen here yesterday for hypoglycemia, chest x- ray was suspicious for pneumonia, she was treated with azithromycin and discharged home. She is having no fevers. Denies any nausea, vomiting, abdominal pain. Patient does have some lower extremity swelling which she states has improved from previous. No palpitations dizziness or weakness. - Related Data Home Medications Medication Instructions Recorded Confirmed Levothyroxine Sodium [Synthroid] 200 mcg PO DAILY 09/08/17 10/26/20 Cholecalciferol [Vitamin D3 (25 25 mcg PO DAILY 10/22/20 10/22/20 Mcg = 1000 Iu)] Ferosul 65mg 65 mg PO DAILY 10/22/20 10/22/20 Sertraline [Zoloft] 50 mg PO DAILY 10/22/20 10/26/20 Previous Rx's Medication Instructions Recorded Azithromycin [Zithromax Z Pack] 0 tab PO DIRECTED #6 tab 12/03/23 predniSONE 50 mg PO DAILY 5 Days #5 tab 12/05/23 Allergies Allergy/AdvReac Type Severity Reaction Status Date / Time No Known Allergies Allergy Verified 12/03/23 10:57 Review of Systems ROS Statement: Those systems with pertinent positive or pertinent negative responses have been documented in the HPI. ROS Other: All systems not noted in ROS Statement are negative. Past Medical History Past Medical History: Osteoarthritis (OA), Thyroid Disorder Additional Past Medical History / Comment(s): ovarian cysts History of Any Multi-Drug Resistant Organisms: None Reported Past Surgical History: Hernia Repair Additional Past Surgical History / Comment(s): ovarian cyst removal Past Anesthesia/Blood Transfusion Reactions: No Reported Reaction, Motion Sickness Past Psychological History: Depression Smoking Status: Never smoker Past Alcohol Use History: Occasional Past Drug Use History: None Reported - Past Family History Sister(s) Family Medical History: Cancer Additional Family Medical History / Comment(s): breast cancer General Exam - General Exam Comments Initial Comments: Visual Physical Exam Vital signs reviewed General: Well-appearing, nontoxic, no acute distress. Head: Normocephalic, atraumatic Eyes: PERRLA, EOMI ENT: Airway patent Chest: Nonlabored breathing Skin: No visual rash, normal skin tone Neuro: Alert and oriented 3 Musculoskeletal: No gross abnormalities Limitations: no limitations General appearance: alert, in no apparent distress Head exam: Present: atraumatic, normocephalic Eye exam: Present: normal appearance Neck exam: Present: normal inspection Respiratory exam: Present: wheezes (Very faint expiratory wheezes). Absent: respiratory distress, rales, rhonchi, stridor, accessory muscle use Cardiovascular Exam: Present: regular rate, normal rhythm, normal heart sounds. Absent: systolic murmur, diastolic murmur, rubs, gallop, clicks Extremities exam: Present: pedal edema Neurological exam: Present: alert, oriented X3 Psychiatric exam: Present: normal affect, normal mood Skin exam: Present: warm, dry Course Vital Signs 12/04/23 12/04/23 12/04/23 15:37 22:00 22:53 Temperature 97.3 F L Pulse Rate 93 73 77 Respiratory 20 18 18 Rate Blood Pressure 132/83 120/89 131/74 O2 Sat by Pulse 92 L 95 92 L Oximetry 12/04/23 12/04/23 12/05/23 23:43 23:48 00:36 Temperature Pulse Rate 78 80 81 Respiratory 18 Rate Blood Pressure 127/75 O2 Sat by Pulse 93 L Oximetry Medical Decision Making - Medical Decision Making Was pt. sent in by a medical professional or institution (ARIANE Medrano, FURNITURE DETAILER, urgent care, hospital, or long-term...) When possible be specific @ -No Did you speak to anyone other than the patient for history (EMS, parent, family, police, friend...)? What history was obtained from this source @ -No Did you review nursing and triage notes (agree or disagree)? Why? @ -I reviewed and agree with nursing and triage notes Were old charts reviewed (outside hosp., previous admission, EMS record, old EKG, old radiological studies, urgent care reports/EKG's, long-term records)? Report findings @ -Reviewed most recent ER visit Differential Diagnosis (chest pain, altered mental status, abdominal pain women, abdominal pain men, vaginal bleeding, weakness, fever, dyspnea, syncope, headache, dizziness, GI bleed, back pain, seizure, CVA, palpatations, mental health, musculoskeletal)? @ -MDM Differential Dyspnea: Coronary syndrome, arrhythmia, tamponade, asthma, COPD, pulmonary embolism, pneumonia, pneumothorax, pulmonary effusion, anaphylaxis, diabetic ketoacidosis, flailed chest, pulmonary contusion, diaphragmatic rupture, anemia, neuromuscular this is not meant to be an all-inclusive list. EKG interpreted by me (3pts min.). @ -EKG shows sinus rhythm ventricular rate 85. MT interval 155. QRS 86. QT 360. QTc 403. X-rays interpreted by me (1pt min.). @ -Chest x-ray shows cardiomegaly with mild pulmonary vascular prominence correlate with serum BNP. Elevated left diaphragm similar to prior. Correlate for phrenic nerve injury. CT interpreted by me (1pt min.). @ -None done U/S interpreted by me (1pt. min.). @ -None done What testing was considered but not performed or refused? (CT, X-rays, U/S, labs)? Why? @ -None What meds were considered but not given or refused? Why? @ -None Did you discuss the management of the patient with other professionals (professionals i.e. , PA, FURNITURE DETAILER, lab, RT, psych nurse, social media content specialist, controls project engineer, teacher, airconditioning drafting officer, case making machine operator)? Give summary @ -No Was smoking cessation discussed for >3mins.? @ -No Was critical care preformed (if so, how long)? @ -No Were there social determinants of health that impacted care today? How? (Homelessness, low income, unemployed, alcoholism, drug addiction, transportation, low edu. Level, literacy, decrease access to med. care, senior care, rehab)? @ -No Was there de-escalation of care discussed even if they declined (Discuss DNR or withdrawal of care, Hospice)? DNR status @ -No What co-morbidities impacted this encounter? (DM, HTN, Smoking, COPD, CAD, Cancer, CVA, ARF, Chemo, Hep., AIDS, mental health diagnosis, sleep apnea, morbid obesity)? @ -None Was patient admitted / discharged? Hospital course, mention meds given and route, prescriptions, significant lab abnormalities, going to OR and other pertinent info. @ -57-year-old female presenting with chief complaint of shortness of breath. Recently diagnosed with pneumonia, she is currently on azithromycin. Workup is initiated by triage. Hemoglobin 8.7. She is negative for influenza, RSV, and COVID. Chest x-ray cardiomegaly with mild pulmonary vascular prominence. BNP is 70. Troponin is negative. Patient is later brought back to a room and evaluated by myself. She does have a very faint expiratory wheeze heard on auscultation. Occult blood is added on due to anemia, occult blood negative. Patient was treated with Solu-Medrol and DuoNeb. On reassessment she reports significant improvement in her shortness of breath. She will be discharged [place]. Instructed to continue her medications. Started on prednisone 50 mg daily for 5 days. Follow-up with PCP. Report back to ER with any new or worsening symptoms. Discussed return parameters and answered all questions. Patient conveyed verbal understanding and agreed to the plan. I discussed this case in detail with my attending Dr. Ruiz Undiagnosed new problem with uncertain prognosis? @ -No Drug Therapy requiring intensive monitoring for toxicity (Heparin, Nitro, Insulin, Cardizem)? @ -No Were any procedures done? @ -No Diagnosis/symptom? @ -Reactive airway disease with wheezing Acute, or Chronic, or Acute on Chronic? @ -Acute Uncomplicated (without systemic symptoms) or Complicated (systemic symptoms)? @ -Uncomplicated Side effects of treatment? @ -No Exacerbation, Progression, or Severe Exacerbation? @ -No Poses a threat to life or bodily function? How? (Chest pain, [place], [place], pneumonia, PE, COPD, DKA, ARF, appy, cholecystitis, CVA, Diverticulitis, Homicidal, [place] p[place], threat to staff... and all critical care pts) @ -Low likelihood - Lab Data Result diagrams: 12/04/23 15:48 12/04/23 15:48 Lab Results 12/04/23 12/04/23 12/04/23 Range/Units 15:48 15:48 15:48 WBC 10.0 (3.8-10.6) k/uL RBC 3.86 (3.80-5.40) m/uL Hgb 8.7 L (11.4-16.0) gm/dL Hct 28.4 L (34.0-46.0) % MCV 73.7 L (80.0-100.0) fL MCH 22.6 L (25.0-35.0) pg MCHC 30.6 L (31.0-37.0) g/dL RDW 16.0 H (11.5-15.5) % Plt Count 349 (150-450) k/uL MPV 7.1 Neutrophils % 83 % Lymphocytes % 9 % Monocytes % 5 % Eosinophils % 3 % Basophils % 1 % Neutrophils # 8.2 H (1.3-7.7) k/uL Lymphocytes # 0.9 L (1.0-4.8) k/uL Monocytes # 0.5 (0-1.0) k/uL Eosinophils # 0.3 (0-0.7) k/uL Basophils # 0.1 (0-0.2) k/uL Hypochromasia Marked Poikilocytosis Slight Microcytosis Slight PT 11.3 (10.0-12.5) sec INR 1.0 (<1.2) APTT 25.7 (22.0-30.0) sec Sodium 136 L (137-145) mmol/L Potassium 4.1 (3.5-5.1) mmol/L Chloride 101 (98-107) mmol/L Carbon Dioxide 26 (22-30) mmol/L Anion Gap 9 mmol/L BUN 12 (7-17) mg/dL Creatinine 0.50 L (0.52-1.04) mg/dL Est GFR (CKD-EPI)AfAm >90 (>60 ml/min/1.73 sqM) Est GFR (CKD-EPI)NonAf >90 (>60 ml/min/1.73 sqM) Glucose 102 H (74-99) mg/dL Plasma Lactic Acid Kip (0.7-2.0) mmol/L Calcium 8.8 (8.4-10.2) mg/dL Total Bilirubin 0.4 (0.2-1.3) mg/dL AST 29 (14-36) U/L ALT 18 (4-34) U/L Alkaline Phosphatase 78 (38-126) U/L Troponin I (0.000-0.034) ng/mL NT-Pro-B Natriuret Pep pg/mL Total Protein 6.4 (6.3-8.2) g/dL Albumin 3.5 (3.5-5.0) g/dL Stool Occult Blood (Negative) Influenza Type A (PCR) (Not Detectd) Influenza Type B (PCR) (Not Detectd) RSV (PCR) (Not Detectd) SARS-CoV-2 (PCR) (Not Detectd) 12/04/23 12/04/23 12/04/23 Range/Units 15:48 15:48 15:48 WBC (3.8-10.6) k/uL RBC (3.80-5.40) m/uL Hgb (11.4-16.0) gm/dL Hct (34.0-46.0) % MCV (80.0-100.0) fL MCH (25.0-35.0) pg MCHC (31.0-37.0) g/dL RDW (11.5-15.5) % Plt Count (150-450) k/uL MPV Neutrophils % % Lymphocytes % % Monocytes % % Eosinophils % % Basophils % % Neutrophils # (1.3-7.7) k/uL Lymphocytes # (1.0-4.8) k/uL Monocytes # (0-1.0) k/uL Eosinophils # (0-0.7) k/uL Basophils # (0-0.2) k/uL Hypochromasia Poikilocytosis Microcytosis PT (10.0-12.5) sec INR (<1.2) APTT (22.0-30.0) sec Sodium (137-145) mmol/L Potassium (3.5-5.1) mmol/L Chloride (98-107) mmol/L Carbon Dioxide (22-30) mmol/L Anion Gap mmol/L BUN (7-17) mg/dL Creatinine (0.52-1.04) mg/dL Est GFR (CKD-EPI)AfAm (>60 ml/min/1.73 sqM) Est GFR (CKD-EPI)NonAf (>60 ml/min/1.73 sqM) Glucose (74-99) mg/dL Plasma Lactic Acid Kip 0.9 (0.7-2.0) mmol/L Calcium (8.4-10.2) mg/dL Total Bilirubin (0.2-1.3) mg/dL AST (14-36) U/L ALT (4-34) U/L Alkaline Phosphatase (38-126) U/L Troponin I <0.012 (0.000-0.034) ng/mL NT-Pro-B Natriuret Pep pg/mL Total Protein (6.3-8.2) g/dL Albumin (3.5-5.0) g/dL Stool Occult Blood (Negative) Influenza Type A (PCR) Not Detected (Not Detectd) Influenza Type B (PCR) Not Detected (Not Detectd) RSV (PCR) Not Detected (Not Detectd) SARS-CoV-2 (PCR) Not Detected (Not Detectd) 12/04/23 12/04/23 Range/Units 15:48 22:07 WBC (3.8-10.6) k/uL RBC (3.80-5.40) m/uL Hgb (11.4-16.0) gm/dL Hct (34.0-46.0) % MCV (80.0-100.0) fL MCH (25.0-35.0) pg MCHC (31.0-37.0) g/dL RDW (11.5-15.5) % Plt Count (150-450) k/uL MPV Neutrophils % % Lymphocytes % % Monocytes % % Eosinophils % % Basophils % % Neutrophils # (1.3-7.7) k/uL Lymphocytes # (1.0-4.8) k/uL Monocytes # (0-1.0) k/uL Eosinophils # (0-0.7) k/uL Basophils # (0-0.2) k/uL Hypochromasia Poikilocytosis Microcytosis PT (10.0-12.5) sec INR (<1.2) APTT (22.0-30.0) sec Sodium (137-145) mmol/L Potassium (3.5-5.1) mmol/L Chloride (98-107) mmol/L Carbon Dioxide (22-30) mmol/L Anion Gap mmol/L BUN (7-17) mg/dL Creatinine (0.52-1.04) mg/dL Est GFR (CKD-EPI)AfAm (>60 ml/min/1.73 sqM) Est GFR (CKD-EPI)NonAf (>60 ml/min/1.73 sqM) Glucose (74-99) mg/dL Plasma Lactic Acid Kip (0.7-2.0) mmol/L Calcium (8.4-10.2) mg/dL Total Bilirubin (0.2-1.3) mg/dL AST (14-36) U/L ALT (4-34) U/L Alkaline Phosphatase (38-126) U/L Troponin I (0.000-0.034) ng/mL NT-Pro-B Natriuret Pep 73 pg/mL Total Protein (6.3-8.2) g/dL Albumin (3.5-5.0) g/dL Stool Occult Blood Negative (Negative) Influenza Type A (PCR) (Not Detectd) Influenza Type B (PCR) (Not Detectd) RSV (PCR) (Not Detectd) SARS-CoV-2 (PCR) (Not Detectd) Disposition Clinical Impression: Reactive airway disease with wheezing Disposition: HOME SELF-CARE Condition: Good Instructions (If sedation given, give patient instructions): Reactive Airways Disease (ED) Additional Instructions: Follow-up with PCP. Report back to ER with any new or worsening symptoms. Take breathing treatments at home as needed. Take medication as prescribed. Prescriptions: predniSONE 50 mg PO DAILY 5 Days #5 tab Is patient prescribed a controlled substance at d/c from ED?: No Referrals: Samuel Melgar MD [Primary Care Provider] - 1-2 days Time of Disposition: 00:14
[2023-12-04 22:29] VITALS: RESP 18
[2023-12-04] MEDS: methylPREDNISolone SOD SUCCI 125 MG/2 ML VIAL IV ONE (22:54)
[2023-12-04] MEDS: IPRATROPIUM-ALBUTEROL 3 ML NEB INHALATION STA (23:41)
[2023-12-05 00:53] VITALS: BP 127/75; PULSE 81
== END 2023-12-05 00:43 | disposition home or self-care (01) ==
LOC: EC 15:33
DX: R06.2 Wheezing (principal)
CPT/HCPCS: 36415; 94640; 93005; 83880; 80053; 83605; 84484; 85025; 85610; 85730; 82272; 87636; 71046; 96374; 99285; J2930

== ENCOUNTER 2023-12-20 12:06 | Inpatient (IN) | payer BC ==
--- NOTE | 2023-12-20 12:56 | ED ---
SOB HPI - General Chief Complaint: Shortness of Breath Stated Complaint: DIANN Time Seen by Provider: 12/20/23 12:30 Source: patient, RN notes reviewed Mode of arrival: ambulatory Limitations: no limitations - History of Present Illness Initial Comments: This is a 57-year-old female who presents to the emergency department for shortness of breath. She was evaluated at this facility on 12/02 for hypoglycemia and diagnosed with suspected pneumonia. She was started on azithromycin at that time. She returned on 12/03 due to worsening shortness of breath. She was given a prescription for prednisone to take in conjunction with the azithromycin. She has also been using inhalers and breathing treatments. States that she is continuing to feel short of breath. Denies any coughing or chest pain. States that she has no energy and walking even small distances is very difficult for her. She was walking in from the parking lot to get her mammogram today, and states that she had to stop several times due to difficulty breathing. Denies any swelling in her extremities. MD Complaint: shortness of breath - Related Data Home Medications Medication Instructions Recorded Confirmed Albuterol Nebulized [Ventolin 2.5 mg INHALATION RT-Q2H PRN 12/20/23 12/20/23 Nebulized] Ergocalciferol (Vitamin D2) 1,250 mcg PO Q7D 12/20/23 12/20/23 [Drisdol (50,000 Iu)] Furosemide [Lasix] 20 mg PO DAILY 12/20/23 12/20/23 Glimepiride [Amaryl] 4 mg PO DAILY 12/20/23 12/20/23 Levothyroxine Sodium [Synthroid] 175 mcg PO DAILY 12/20/23 12/20/23 Sertraline [Zoloft] 100 mg PO DAILY 12/20/23 12/20/23 metFORMIN HCL ER [Glucophage XR] 1,000 mg PO [id number] 12/20/23 12/20/23 Allergies Allergy/AdvReac Type Severity Reaction Status Date / Time No Known Allergies Allergy Verified 12/20/23 15:18 Review of Systems ROS Statement: Those systems with pertinent positive or pertinent negative responses have been documented in the HPI. ROS Other: All systems not noted in ROS Statement are negative. Past Medical History Past Medical History: Osteoarthritis (OA), Pneumonia, Thyroid Disorder Additional Past Medical History / Comment(s): ovarian cysts History of Any Multi-Drug Resistant Organisms: None Reported Past Surgical History: Hernia Repair Additional Past Surgical History / Comment(s): ovarian cyst removal Past Anesthesia/Blood Transfusion Reactions: No Reported Reaction, Motion Sickness Past Psychological History: Depression Smoking Status: Never smoker Past Alcohol Use History: Occasional Past Drug Use History: None Reported - Past Family History Sister(s) Family Medical History: Cancer Additional Family Medical History / Comment(s): breast cancer General Exam Limitations: no limitations General appearance: alert, in no apparent distress Head exam: Present: atraumatic, normocephalic, normal inspection Respiratory exam: Present: normal lung sounds bilaterally. Absent: respiratory distress, wheezes, rales, rhonchi, stridor Cardiovascular Exam: Present: regular rate, normal rhythm, normal heart sounds. Absent: systolic murmur, diastolic murmur, rubs, gallop, clicks Neurological exam: Present: alert, oriented X3, CN II-XII intact Psychiatric exam: Present: normal affect, normal mood Skin exam: Present: warm, dry, intact, normal color. Absent: rash Course Vital Signs 12/20/23 12/20/23 12/20/23 12:09 13:11 14:51 Temperature 98.2 F Pulse Rate 92 92 76 Respiratory 22 16 Rate Blood Pressure 144/61 149/76 O2 Sat by Pulse 93 L 96 Oximetry 12/20/23 12/20/23 14:58 15:22 Temperature Pulse Rate 78 79 Respiratory 18 Rate Blood Pressure 128/77 O2 Sat by Pulse 96 Oximetry Medical Decision Making - Medical Decision Making This is a 57 year old female who presents to the emergency department for shortness of breath. Was pt. sent in by a medical professional or institution? @ -No Did you speak to anyone other than the patient for history? @ -No Did you review nursing and triage notes? @ -Yes, and I agree, it is accurate with regards to the patient's symptoms. Were old charts reviewed? @ -No Differential Diagnosis? @ -Differential Dyspnea: Coronary syndrome, arrhythmia, tamponade, asthma, COPD, pulmonary embolism, pneumonia, pneumothorax, pulmonary effusion, anaphylaxis, diabetic ketoacidosis, flailed chest, pulmonary contusion, diaphragmatic rupture, anemia, neuromuscular, this is not meant to be an all-inclusive list. EKG interpreted by me (3pts min.)? @ -EKG interpreted by me demonstrating the following: Sinus rhythm. Ventricular rate 84 bpm, MS interval 154 ms, QRS duration 86 ms, QTc 405 ms. X-rays interpreted by me (1pt min.)? @ -Chest x-ray obtained, my interpretation identifies no localized consolidations or infiltrates. CT interpreted by me (1pt min.)? @ -CTA of the chest obtained. My interpretation identifies a right-sided pulmonary emboli. U/S interpreted by me (1pt. min.)? @ -Not obtained What testing was considered but not performed? (CT, X-rays, U/S, labs)? Why? @ -None What meds were considered but not given? Why? @ -None Did you discuss the management of the patient with other professionals? @ -Yes, Dr. Posey, who accepts the patient for admission. Did you reconcile home meds? @ -Yes Was smoking cessation discussed for >3mins.? @ -No Was critical care preformed (if so, how long)? @ -No Were there social determinants of health that impacted care today? How? (Homelessness, low income, unemployed, alcoholism, drug addiction, transportation, low edu. Level, literacy, decrease access to med. care, fci, rehab)? @ -No Was there de-escalation of care discussed even if they declined? (Discuss DNR or withdrawal of care, Hospice)? @ -No What co-morbidities impacted this encounter? (DM, HTN, Smoking, COPD, CAD, Cancer, CVA, Hep., AIDS, mental health diagnosis, sleep apnea, morbid obesity)? @ -DM, obesity Was patient admitted / discharged? @ -Discharged. Lab work demonstrates an elevated D-dimer of 3.17. Hemoglobin of 8.3 is stable when compared with prior. COVID, influenza, and RSV testing w ere negative. Chest x-ray reveals no acute process. CTA of the chest obtained due to the elevated D-dimer and patient's symptoms. This reveals a small right middle and lower lobe pulmonary emboli. No obvious right heart strain was present. Troponin and BNP negative. Patient denies any leg pain. She has not had any recent travel, any recent procedures, is not on any hormone replacement therapy, and denies a history of blood clots. Also denies any pain in the bilateral upper or lower extremities. Patient started on high intensity heparin protocol. She was admitted to medicine for right-sided pulmonary emboli. Echocardiogram ordered and consult placed for pulmonology. Undiagnosed new problem with uncertain prognosis? @ -None Drug Therapy requiring intensive monitoring for toxicity (Heparin, Nitro, Insulin, Cardizem)? @ -Heparin Were any procedures done? @ -None Diagnosis/symptom? @ -Pulmonary emboli Acute, or Chronic, or Acute on Chronic? @ -Acute Uncomplicated (without systemic symptoms) or Complicated (systemic symptoms)? @ -Complicated Side effects of treatment? @ -None Exacerbation, Progression, or Severe Exacerbation] @ -Not applicable Poses a threat to life or bodily function? @ -Yes This case was discussed in detail with the attending ED physician, Dr. Reyna. Presentation, findings, and treatment plan discussed in detail as well. - Lab Data Result diagrams: 12/20/23 12:37 12/20/23 12:37 Lab Results 12/20/23 12/20/23 12/20/23 Range/Units 12:37 12:37 12:37 WBC 10.1 (3.8-10.6) k/uL RBC 3.81 (3.80-5.40) m/uL Hgb 8.3 L (11.4-16.0) gm/dL Hct 27.5 L (34.0-46.0) % MCV 72.3 L (80.0-100.0) fL MCH 21.8 L (25.0-35.0) pg MCHC 30.1 L (31.0-37.0) g/dL RDW 16.2 H (11.5-15.5) % Plt Count 304 (150-450) k/uL MPV 7.6 Neutrophils % 82 % Lymphocytes % 10 % Monocytes % 5 % Eosinophils % 2 % Basophils % 0 % Neutrophils # 8.3 H (1.3-7.7) k/uL Lymphocytes # 1.0 (1.0-4.8) k/uL Monocytes # 0.5 (0-1.0) k/uL Eosinophils # 0.2 (0-0.7) k/uL Basophils # 0.0 (0-0.2) k/uL Hypochromasia Marked Poikilocytosis Slight Anisocytosis Slight Microcytosis Moderate PT 11.3 (10.0-12.5) sec INR 1.0 (<1.2) APTT 24.9 (22.0-30.0) sec D-Dimer 3.17 H (<0.60) mg/L FEU Sodium 139 (137-145) mmol/L Potassium 3.5 (3.5-5.1) mmol/L Chloride 105 (98-107) mmol/L Carbon Dioxide 27 (22-30) mmol/L Anion Gap 7 mmol/L BUN 24 H (7-17) mg/dL Creatinine 0.42 L (0.52-1.04) mg/dL Est GFR (CKD-EPI)AfAm >90 (>60 ml/min/1.73 sqM) Est GFR (CKD-EPI)NonAf >90 (>60 ml/min/1.73 sqM) Glucose 121 H (74-99) mg/dL Plasma Lactic Acid Kip (0.7-2.0) mmol/L Calcium 9.3 (8.4-10.2) mg/dL Total Bilirubin 0.4 (0.2-1.3) mg/dL AST 27 (14-36) U/L ALT 19 (4-34) U/L Alkaline Phosphatase 72 (38-126) U/L Troponin I (0.000-0.034) ng/mL C-Reactive Protein 5.7 H (<1.0) mg/dL NT-Pro-B Natriuret Pep 116 pg/mL Total Protein 6.5 (6.3-8.2) g/dL Albumin 3.5 (3.5-5.0) g/dL 12/20/23 12/20/23 Range/Units 12:37 12:37 WBC (3.8-10.6) k/uL RBC (3.80-5.40) m/uL Hgb (11.4-16.0) gm/dL Hct (34.0-46.0) % MCV (80.0-100.0) fL MCH (25.0-35.0) pg MCHC (31.0-37.0) g/dL RDW (11.5-15.5) % Plt Count (150-450) k/uL MPV Neutrophils % % Lymphocytes % % Monocytes % % Eosinophils % % Basophils % % Neutrophils # (1.3-7.7) k/uL Lymphocytes # (1.0-4.8) k/uL Monocytes # (0-1.0) k/uL Eosinophils # (0-0.7) k/uL Basophils # (0-0.2) k/uL Hypochromasia Poikilocytosis Anisocytosis Microcytosis PT (10.0-12.5) sec INR (<1.2) APTT (22.0-30.0) sec D-Dimer (<0.60) mg/L FEU Sodium (137-145) mmol/L Potassium (3.5-5.1) mmol/L Chloride (98-107) mmol/L Carbon Dioxide (22-30) mmol/L Anion Gap mmol/L BUN (7-17) mg/dL Creatinine (0.52-1.04) mg/dL Est GFR (CKD-EPI)AfAm (>60 ml/min/1.73 sqM) Est GFR (CKD-EPI)NonAf (>60 ml/min/1.73 sqM) Glucose (74-99) mg/dL Plasma Lactic Acid Kip 0.9 (0.7-2.0) mmol/L Calcium (8.4-10.2) mg/dL Total Bilirubin (0.2-1.3) mg/dL AST (14-36) U/L ALT (4-34) U/L Alkaline Phosphatase (38-126) U/L Troponin I <0.012 (0.000-0.034) ng/mL C-Reactive Protein (<1.0) mg/dL NT-Pro-B Natriuret Pep pg/mL Total Protein (6.3-8.2) g/dL Albumin (3.5-5.0) g/dL - Radiology Data Radiology results: report reviewed, image reviewed Disposition Clinical Impression: Pulmonary emboli, Dyspnea Disposition: ADMITTED IP TO THIS [facility] Time of Disposition: 15:17
--- NOTE | 2023-12-20 13:06 | XR ---
EXAMINATION TYPE: XR chest 2V DATE OF EXAM: 12/20/2023 COMPARISON: 12/04/2023 INDICATION: Difficulty breathing TECHNIQUE: Frontal and lateral views of the chest are obtained. FINDINGS: The heart size is enlarged. The pulmonary vasculature is normal. The lungs are clear. There is elevation of the left diaphragm. IMPRESSION: 1. Cardiomegaly. 2. Elevation of the left diaphragm.
[2023-12-20 13:19] LABS: ALT 19 U/L (4-34); AST 27 U/L (14-36); African American GFR (CKD) >90 (>60 ml/min/1.73 sqM); Albumin 3.5 g/dL (3.5-5.0); Alkaline Phosphatase 72 U/L (38-126); Anion Gap 7 mmol/L; Blood Urea Nitrogen 24 mg/dL (7-17); C Reactive Protein 5.7 mg/dL (<1.0); Calcium 9.3 mg/dL (8.4-10.2); Carbon Dioxide 27 mmol/L (22-30); Chloride 105 mmol/L (98-107); Glucose 121 mg/dL (74-99); Non-African American GFR(CKD) >90 (>60 ml/min/1.73 sqM); Potassium 3.5 mmol/L (3.5-5.1); Sodium 139 mmol/L (137-145); Total Bilirubin 0.4 mg/dL (0.2-1.3); Total Protein 6.5 g/dL (6.3-8.2)
[2023-12-20 13:21] LABS: Partial Thromboplastin Time 24.9 sec (22.0-30.0); Prothrombin Time 11.3 sec (10.0-12.5)
[2023-12-20 13:26] LABS: NT-Pro-B-Type Natriuretic Pept 116 pg/mL
[2023-12-20 13:38] LABS: Anisocytosis Slight; Basophils % (A) 0 %; Eosinophils # (A) 0.2 k/uL (0-0.7); Eosinophils % (A) 2 %; HCT 27.5 % (34.0-46.0); HGB 8.3 gm/dL (11.4-16.0); Hypochromasia Marked; Lymphocytes % (A) 10 %; MCH 21.8 pg (25.0-35.0); MCHC 30.1 g/dL (31.0-37.0); MCV 72.3 fL (80.0-100.0); Mean Platelet Volume 7.6; Microcytosis Moderate; Monocytes # (A) 0.5 k/uL (0-1.0); Monocytes % (A) 5 %; Neutrophils # (A) 8.3 k/uL (1.3-7.7); Neutrophils % (A) 82 %; Platelet Count 304 k/uL (150-450); Poikilocytosis Slight; RBC 3.81 m/uL (3.80-5.40); RDW 16.2 % (11.5-15.5); WBC 10.1 k/uL (3.8-10.6)
[2023-12-20] MEDS: IPRATROPIUM-ALBUTEROL 3 ML NEB INHALATION STA (14:49)
--- NOTE | 2023-12-20 14:56 | CT ---
CTA CHEST EXAMINATION TYPE: CT chest angio for PE DATE OF EXAM: 12/20/2023 INDICATION: sob CT DLP: 703.6 mGycm, Automated exposure control for dose reduction was used. CONTRAST: Patient injected with 100 mL of Isovue 370. COMPARISON: None TECHNIQUE: CT of the chest is performed on a spiral scan at 2 mm thick sections. Study is performed with intravenous contrast timed for evaluation for pulmonary embolism. This will limit additional po rtions of the evaluation. 3-D MIP images reconstructed by the technologist are reviewed on the compu ter in the coronal and sagittal planes. FINDINGS: There is a small filling defect within an anterior right lower lobe pulmonary artery, example image 4 02 image 126. There may be additional small pulmonary emboli in the right lower lung field middle lob e. No mediastinal or hilar adenopathy enlarged by CT criteria is evident. The ascending aorta diameter at the level of the main pulmonary artery is 3.4 cm. The main pulmonary artery diameter at the bifurcation is 3.0 cm. Some minimal compressive atelectasis at the left base may be present. Limited CT sections were through the upper abdomen. Upper abdomen appears unremarkable. IMPRESSION: 1. Small right middle and lower lobe pulmonary emboli present. Report was called to the emergency chepe m by Dr. Adames by telephone at the time of interpretation.
[2023-12-20] MEDS ORDERED: NALOXONE 0.4 MG/ML 1 ML VIAL IV PRN (15:20)
[2023-12-20] MEDS ORDERED: HYDROcodone/APAP 5-325MG 1 EACH TAB PO PRN (15:20)
[2023-12-20] MEDS ORDERED: ONDANSETRON 4 MG/2 ML VIAL IVP PRN (15:20)
[2023-12-20] MEDS ORDERED: ACETAMINOPHEN TAB 325 MG TAB PO PRN (15:20)
[2023-12-20] MEDS ORDERED: ALBUTEROL NEBULIZED 2.5 MG/3 ML INHALATION PRN (15:32)
[2023-12-20] MEDS: HEPARIN SODIUM 1,000 UN/ML (10ML VL) IV ONE (15:33)
[2023-12-20] MEDS: HEPARIN SOD,PORK IN 0.45% NACL 25,000 UNIT in 0.45% NACL 1 250ML.BAG IV SCH (15:34)
[2023-12-20] MEDS ORDERED: DEXTROSE 50% SYRINGE 50 ML IVP PRN ×2 (15:44)
--- NOTE | 2023-12-20 16:43 | US ---
EXAMINATION TYPE: US venous doppler duplex LE BI DATE OF EXAM: 12/20/2023 4:36 PM COMPARISON: NONE CLINICAL INDICATION: Female, 57 years old with history of has PE; Patient is on heparin. PE. SIDE PERFORMED: Bilateral TECHNIQUE: The lower extremity deep venous system is examined utilizing real time linear array sonog irving with graded compression, doppler sonography and color-flow sonography. VESSELS IMAGED: Common Femoral Vein Deep Femoral Vein Greater Saphenous Vein * Femoral Vein Popliteal Vein Small Saphenous Vein * Proximal Calf Veins (* superficial vessels) Right Leg: No evidence of DVT. *Complex area seen right popliteal area: 5.2 x 3.8 x 1.8 cm. Left Leg: No evidence of DVT. IMPRESSION: No evidence of DVT.
[2023-12-20 16:46] LABS: Glucose,Whole Blood 180 mg/dL (70-110)
--- NOTE | 2023-12-20 17:14 | P.HPIM ---
History of Present Illness H&P Date: 12/20/23 Patient is a 57-year-old female with history of hypertension, diabetes, hypothyroidism, reactive airway disease, depression presenting with shortness of breath. She claims that her shortness of breath currently started after her hernia surgery 2 months ago. Worsened about 3 weeks ago, she did present to the hospital with similar complaints. She was treated for pneumonia and was given steroids. However her symptoms persisted. Today she was scheduled for a mammogram, however was extremely short of breath, and was advised to go to the emergency. She denies any chest pain, palpitations, nausea, vomiting, bowel complaints. She has been having hematuria for the last 2 months. She claims that she had colonoscopy 5 years ago, and was found to have polyps which were noncancerous lesions. She has a repeat colonoscopy pending this year. She claims that she lost about 17 pounds since her hernia surgery. She denies any personal cancer history. Her family does have history of breast cancer, however her last mammogram was within normal limits. She denies any smoking history, illicit drug use, drinks occasionally. In the ED, temperature was 98.2, pulse 92, respiratory rate 22, blood pressure 144/61, saturating at 93% on room air. Initial chest x-ray independently interpreted, shows left hemidiaphragm and cardiomegaly, no acute opacities. EKG shows sinus rhythm. Chest CT shows small right middle and lower lobe pulmonary emboli. Laboratory workup shows hemoglobin 8.3 which has been similar to last month, however significant drop since 2018. MCV 72.3, D-dimer 3.17, creatinine 0.42, lactate 0.9, troponin negative, CRP 5.7, proBNP 116. Patient started on heparin drip, pulmonology consulted. Patient being admitted for nonmassive PE. Pertinent positives and negatives as discussed in HPI, a complete review of systems was performed and all other systems are negative. Patient seen and examined at bedside. Vital signs reviewed General: nontoxic, no distress, appears at stated age, obese Derm: warm, dry Head: atraumatic, normocephalic, symmetric Eyes: EOMI, no lid lag, anicteric sclera, pupils equal round reactive to light ENT: Nose and ears atraumatic Neck: No thyromegaly, supple Mouth: no lip lesion, mucus membranes moist Cardiovascular: S1S2 reg, no murmur, no edema Lungs: clear to auscultation bilateral, no rhonchi, no rales, no wheeze, no accessory muscle use, supplemental oxygen Abdominal: soft, distended, nontender to palpation, no guarding, no appreciable organomegaly Ext: no gross muscle atrophy, muscle strength muscle strength 5 out of 5 in all 4 extremities, no contractures Neuro: CN II-XII grossly intact Psych: Alert, oriented, appropriate affect Assessment/Plan: Active: Nonmassive pulmonary embolism, likely acute, unprovoked Dyspnea History of asthma - Continue heparin drip, monitor APTT as well as bleeding, daily CBC - Consider switching to oral anticoagulation - Pulmonology consulted - Continue albuterol as needed - Lower extremity Dopplers does not show any DVTs, complex area seen right popliteal area 5 x 3 x 1 cm. Microcytic anemia Hematuria - Iron studies pending -Urinalysis pending - Patient has a history of polyps, last colonoscopy 5 years ago, should have repeat colonoscopy - Echocardiogram pending Type 2 diabetes - Sliding scale insulin, monitor for hypoglycemia Chronic: Hypothyroidism Hypertension Depression The patient is admitted with an anticipated greater than 2 midnight stay as inpatient status for evaluation of unprovoked PE. Surrogate decision-maker: Friend CODE STATUS: Full code DVT prophylaxis: Heparin drip Anticipated discharge date: Pending clinical course Anticipated discharge place: Pending clinical course A total of 55 minutes was spent on the care of this complex patient more than 50% of the time was spent in counseling and care coordination. Past Medical History Past Medical History: Osteoarthritis (OA), Pneumonia, Thyroid Disorder Additional Past Medical History / Comment(s): ovarian cysts History of Any Multi-Drug Resistant Organisms: None Reported Past Surgical History: Hernia Repair Additional Past Surgical History / Comment(s): ovarian cyst removal Past Anesthesia/Blood Transfusion Reactions: No Reported Reaction, Motion Sickness Past Psychological History: Depression Smoking Status: Never smoker Past Alcohol Use History: Occasional Past Drug Use History: None Reported - Past Family History Sister(s) Family Medical History: Cancer Additional Family Medical History / Comment(s): breast cancer Medications and Allergies Home Medications Medication Instructions Recorded Confirmed Type Albuterol Nebulized [Ventolin 2.5 mg INHALATION RT-Q2H PRN 12/20/23 12/20/23 History Nebulized] Ergocalciferol (Vitamin D2) 1,250 mcg PO Q7D 12/20/23 12/20/23 History [Drisdol (50,000 Iu)] Furosemide [Lasix] 20 mg PO DAILY 12/20/23 12/20/23 History Glimepiride [Amaryl] 4 mg PO DAILY 12/20/23 12/20/23 History Levothyroxine Sodium [Synthroid] 175 mcg PO DAILY 12/20/23 12/20/23 History Sertraline [Zoloft] 100 mg PO DAILY 12/20/23 12/20/23 History metFORMIN HCL ER [Glucophage XR] 1,000 mg PO AC-BRKFST 12/20/23 12/20/23 History Allergies Allergy/AdvReac Type Severity Reaction Status Date / Time No Known Allergies Allergy Verified 12/20/23 15:18 Physical Exam Vitals: Vital Signs Temp Pulse Resp BP Pulse Ox 12/20/23 15:22 79 18 128/77 96 12/20/23 14:58 78 12/20/23 14:51 76 12/20/23 13:11 92 16 149/76 96 12/20/23 12:09 98.2 F 92 22 144/61 93 L Intake and Output 12/20/23 12/20/23 12/20/23 06:59 14:59 22:59 Other: Weight 115.666 kg Results CBC & Chem 7: 12/20/23 12:37 12/20/23 12:37 Labs: Abnormal Lab Results - Last 24 Hours (Table) 12/20/23 12/20/23 12/20/23 Range/Units 12:37 12:37 12:37 Hgb 8.3 L (11.4-16.0) gm/dL Hct 27.5 L (34.0-46.0) % MCV 72.3 L (80.0-100.0) fL MCH 21.8 L (25.0-35.0) pg MCHC 30.1 L (31.0-37.0) g/dL RDW 16.2 H (11.5-15.5) % Neutrophils # 8.3 H (1.3-7.7) k/uL D-Dimer 3.17 H (<0.60) mg/L FEU BUN 24 H (7-17) mg/dL Creatinine 0.42 L (0.52-1.04) mg/dL Glucose 121 H (74-99) mg/dL POC Glucose (mg/dL) (70-110) mg/dL C-Reactive Protein 5.7 H (<1.0) mg/dL 12/20/23 Range/Units 16:44 Hgb (11.4-16.0) gm/dL Hct (34.0-46.0) % MCV (80.0-100.0) fL MCH (25.0-35.0) pg MCHC (31.0-37.0) g/dL RDW (11.5-15.5) % Neutrophils # (1.3-7.7) k/uL D-Dimer (<0.60) mg/L FEU BUN (7-17) mg/dL Creatinine (0.52-1.04) mg/dL Glucose (74-99) mg/dL POC Glucose (mg/dL) 180 H (70-110) mg/dL C-Reactive Protein (<1.0) mg/dL
[2023-12-20] MEDS: INSULIN ASPART (NovoLOG) 100 UNIT/ML VIAL SQ SCH (17:30)
[2023-12-20 20:33] LABS: Glucose,Whole Blood 134 mg/dL (70-110)
[2023-12-20 20:53] LABS: Appearance,Urine Cloudy (Clear); Bacteria,Urine Rare /hpf; Bilirubin,Urine Negative (Negative); Blood,Urine Negative (Negative); Calcium Oxalate Crystals,Urine Few /hpf; Color,Urine Yellow; Glucose,Urine (UA) Negative (Negative); Ketones,Urine Trace (Negative); Leukocyte Esterase,Urine Small (Negative); Mucus,Urine Few /hpf; Nitrite,Urine Negative (Negative); PH, Urine 5.5 (5.0-8.0); Protein,Urine Trace (Negative); RBC,Urine 7 /hpf (0-5); Squamous Epithelial Cell,Urine 13 /hpf (0-4); Urobilinogen,Urine <2.0 mg/dL (<2.0); WBC,Urine 4 /hpf (0-5)
[2023-12-20 21:14] LABS: Specific Gravity,Urine >1.050 (1.001-1.035)
--- NOTE | 2023-12-20 21:48 | P.CNPUL ---
History of Present Illness Consult date: 12/20/23 Reason for consult: obstructive sleep apnea History of present illness: This is a 57-year-old female patient is coming into the hospital because of worsening shortness of breath. Patient is morbidly obese. The patient has been experiencing shortness of breath for the past 2 to 3 weeks. Noted approximately 2 months ago, the patient had a repair of a large anterior abdominal wall hernia that was done at [facility]. Her course was uncomplicated. No previous history of DVT or pulmonary embolism. She reports some exertional dyspnea. No pleurisy. No hemoptysis. No chest pain. She has diabetes and hypertension hypothyroidism as comorbid conditions. No history of any malignancy. She came into the emergency room the patient's hemodynamics were essentially stable. As part of her routine blood work, the patient was given a D-dimer that was elevated at 3.1 and the rest of the coagulation profile within normal limits. Electrolytes are unremarkable. Renal function showed a creatinine of 0.7. LFTs were normal. Occult blood in the stool was negative. The patient was having some microcytic anemia with a hemoglobin of 8.3 and an MCV of 72 with a white cell count of 10.1 and a platelet count of 304. Initial chest x-ray showed no acute abnormalities and there was some elevation of left hemidiaphragm and cardiomegaly. CT angiogram of the chest showed a questionable filling defect in the right lower lobe pulmonary artery branch. No mediastinal lymphadenopathy. Some elevation of left hemidiaphragm and left basilar atelectatic changes were noted. Based on that, the patient was started on IV heparin. Doppler of the lower extremity showed no evidence of any DVTs. There was a cyst in the popliteal area measuring 5 cm in size in the right lower extremity. Currently on 2 L of oxygen by nasal cannula. No significant tachycardia. Has trace edema lower extremities bilaterally. UA is showing for WBCs, 7 RBCs, few bacteria. Negative for leukocyte esterase. Few oxalate stones. Troponin was negative. Lactic acid level was 0.9. proBNP level was 116. Review of Systems Constitutional: Reports fatigue, Reports weight loss Eyes: denies as per HPI, denies blurred vision, denies bulging eye, denies decreased vision, denies diplopia, denies discharge, denies dry eye, denies irritation, denies itching, denies pain, denies photophobia, denies loss of peripheral vision, denies loss of vision, denies tunnel vision/blind spots Ears: deny: decreased hearing, ear discharge, earache, tinnitus Ears, nose, mouth and throat: Reports as per HPI Breasts: absent: as per HPI, change in shape, gynecomastia, masses, nipple discharge, pain, skin changes, swelling Cardiovascular: Reports decreased exercise tolerance Gastrointestinal: Reports as per HPI Genitourinary: Reports as per HPI Menstruation: Reports as per HPI Musculoskeletal: Reports as per HPI Musculoskeletal: bilateral: ankle swelling, absent: ankle pain, ankle stiffness Integumentary: Reports as per HPI Neurological: Reports as per HPI Psychiatric: Reports as per HPI Endocrine: Reports as per HPI Hematologic/Lymphatic: Reports as per HPI Allergic/Immunologic: Reports as per HPI Past Medical History Past Medical History: Asthma, Diabetes Mellitus, Osteoarthritis (OA), Thyroid Disorder Additional Past Medical History / Comment(s): ovarian cysts History of Any Multi-Drug Resistant Organisms: None Reported Past Surgical History: Hernia Repair Additional Past Surgical History / Comment(s): ovarian cyst removal Past Anesthesia/Blood Transfusion Reactions: No Reported Reaction, Motion Sickness Past Psychological History: Depression Smoking Status: Never smoker Past Alcohol Use History: Occasional Past Drug Use History: None Reported - Past Family History Sister(s) Family Medical History: Cancer Additional Family Medical History / Comment(s): breast cancer Medications and Allergies Home Medications Medication Instructions Recorded Confirmed Type Albuterol Nebulized [Ventolin 2.5 mg INHALATION RT-Q2H PRN 12/20/23 12/20/23 History Nebulized] Ergocalciferol (Vitamin D2) 1,250 mcg PO Q7D 12/20/23 12/20/23 History [Drisdol (50,000 Iu)] Furosemide [Lasix] 20 mg PO DAILY 12/20/23 12/20/23 History Glimepiride [Amaryl] 4 mg PO DAILY 12/20/23 12/20/23 History Levothyroxine Sodium [Synthroid] 175 mcg PO DAILY 12/20/23 12/20/23 History Sertraline [Zoloft] 100 mg PO DAILY 12/20/23 12/20/23 History metFORMIN HCL ER [Glucophage XR] 1,000 mg PO AC-BRKFST 12/20/23 12/20/23 History Allergies Allergy/AdvReac Type Severity Reaction Status Date / Time No Known Allergies Allergy Verified 12/20/23 15:18 Physical Exam Vitals: Vital Signs Temp Pulse Resp BP Pulse Ox 12/20/23 20:36 80 18 121/81 95 12/20/23 17:51 92 18 116/74 95 12/20/23 15:22 79 18 128/77 96 12/20/23 14:58 78 12/20/23 14:51 76 12/20/23 13:11 92 16 149/76 96 12/20/23 12:09 98.2 F 92 22 144/61 93 L Intake and Output 12/20/23 12/20/23 12/20/23 06:59 14:59 22:59 Other: Weight 115.666 kg General: nontoxic, no distress, appears at stated age, obese Derm: warm, dry Head: atraumatic, normocephalic, symmetric Eyes: EOMI, no lid lag, anicteric sclera, pupils equal round reactive to light ENT: Nose and ears atraumatic Neck: No thyromegaly, supple Mouth: no lip lesion, mucus membranes moist Cardiovascular: S1S2 reg, no murmur, no edema Lungs: clear to auscultation bilateral, no rhonchi, no rales, no wheeze, no accessory muscle use Abdominal: soft, distended, nontender to palpation, no guarding, no appreciable organomegaly, scar of the previous abdominal surgery within the abdominal wall. Organs cannot be accurately palpated. Ext: no gross muscle atrophy, muscle strength muscle strength 5 out of 5 in all 4 extremities, no contractures Neuro: CN II-XII grossly intact Psych: Alert, oriented, appropriate affect Results - Laboratory Findings CBC and BMP: 12/20/23 12:37 12/20/23 12:37 ABG WBC 10.1 k/uL (3.8-10.6) 12/20/23 12:37 RBC 3.81 m/uL (3.80-5.40) 12/20/23 12:37 Hgb 8.3 gm/dL (11.4-16.0) L 12/20/23 12:37 Hct 27.5 % (34.0-46.0) L 12/20/23 12:37 MCV 72.3 fL (80.0-100.0) L 12/20/23 12:37 MCH 21.8 pg (25.0-35.0) L 12/20/23 12:37 MCHC 30.1 g/dL (31.0-37.0) L 12/20/23 12:37 RDW 16.2 % (11.5-15.5) H 12/20/23 12:37 Plt Count 304 k/uL (150-450) 12/20/23 12:37 MPV 7.6 12/20/23 12:37 Neutrophils % 82 % 12/20/23 12:37 Lymphocytes % 10 % 12/20/23 12:37 Monocytes % 5 % 12/20/23 12:37 Eosinophils % 2 % 12/20/23 12:37 Basophils % 0 % 12/20/23 12:37 Neutrophils # 8.3 k/uL (1.3-7.7) H 12/20/23 12:37 Lymphocytes # 1.0 k/uL (1.0-4.8) 12/20/23 12:37 Monocytes # 0.5 k/uL (0-1.0) 12/20/23 12:37 Eosinophils # 0.2 k/uL (0-0.7) 12/20/23 12:37 Basophils # 0.0 k/uL (0-0.2) 12/20/23 12:37 Hypochromasia Marked 12/20/23 12:37 Poikilocytosis Slight 12/20/23 12:37 Anisocytosis Slight 12/20/23 12:37 Microcytosis Moderate 12/20/23 12:37 PT 11.3 sec (10.0-12.5) 12/20/23 12:37 INR 1.0 (<1.2) 12/20/23 12:37 APTT 24.9 sec (22.0-30.0) 12/20/23 12:37 D-Dimer 3.17 mg/L FEU (<0.60) H 12/20/23 12:37 Sodium 139 mmol/L (137-145) 12/20/23 12:37 Potassium 3.5 mmol/L (3.5-5.1) 12/20/23 12:37 Chloride 105 mmol/L (98-107) 12/20/23 12:37 Carbon Dioxide 27 mmol/L (22-30) 12/20/23 12:37 Anion Gap 7 mmol/L 12/20/23 12:37 BUN 24 mg/dL (7-17) H 12/20/23 12:37 Creatinine 0.42 mg/dL (0.52-1.04) L 12/20/23 12:37 Est GFR (CKD-EPI)AfAm >90 (>60 ml/min/1.73 sqM) 12/20/23 12:37 Est GFR (CKD-EPI)NonAf >90 (>60 ml/min/1.73 sqM) 12/20/23 12:37 Glucose 121 mg/dL (74-99) H 12/20/23 12:37 POC Glucose (mg/dL) 134 mg/dL (70-110) H 12/20/23 20:32 POC Glu Final Operations Technician Karen Unger 12/20/23 20:32 Plasma Lactic Acid Kip 0.9 mmol/L (0.7-2.0) 12/20/23 12:37 Calcium 9.3 mg/dL (8.4-10.2) 12/20/23 12:37 Total Bilirubin 0.4 mg/dL (0.2-1.3) 12/20/23 12:37 AST 27 U/L (14-36) 12/20/23 12:37 ALT 19 U/L (4-34) 12/20/23 12:37 Alkaline Phosphatase 72 U/L (38-126) 12/20/23 12:37 Troponin I <0.012 ng/mL (0.000-0.034) 12/20/23 12:37 C-Reactive Protein 5.7 mg/dL (<1.0) H 12/20/23 12:37 NT-Pro-B Natriuret Pep 116 pg/mL 12/20/23 12:37 Total Protein 6.5 g/dL (6.3-8.2) 12/20/23 12:37 Albumin 3.5 g/dL (3.5-5.0) 12/20/23 12:37 Urine Color Yellow 12/20/23 19:16 Urine Appearance Cloudy (Clear) H 12/20/23 19:16 Urine pH 5.5 (5.0-8.0) 12/20/23 19:16 Ur Specific [place] >1.050 (1.001-1.035) H 12/20/23 19:16 Urine Protein Trace (Negative) H 12/20/23 19:16 Urine Glucose (UA) Negative (Negative) 12/20/23 19:16 Urine Ketones Trace (Negative) H 12/20/23 19:16 Urine Blood Negative (Negative) 12/20/23 19:16 Urine Nitrite Negative (Negative) 12/20/23 19:16 Urine Bilirubin Negative (Negative) 12/20/23 19:16 Urine Urobilinogen <2.0 mg/dL (<2.0) 12/20/23 19:16 Ur Leukocyte Esterase Small (Negative) H 12/20/23 19:16 Urine RBC 7 /hpf (0-5) H 12/20/23 19:16 Urine WBC 4 /hpf (0-5) 12/20/23 19:16 Ur Squamous Epith Cells 13 /hpf (0-4) H 12/20/23 19:16 Calcium Oxalate Crystal Few /hpf (None) H 12/20/23 19:16 Urine Bacteria Rare /hpf (None) H 12/20/23 19:16 Urine Mucus Few /hpf (None) H 12/20/23 19:16 PT/INR, D-dimer PT 11.3 sec (10.0-12.5) 12/20/23 12:37 INR 1.0 (<1.2) 12/20/23 12:37 D-Dimer 3.17 mg/L FEU (<0.60) H 12/20/23 12:37 Abnormal lab findings: Abnormal Labs 12/20/23 12/20/23 12/20/23 12:37 12:37 12:37 Hgb 8.3 L Hct 27.5 L MCV 72.3 L MCH 21.8 L MCHC 30.1 L RDW 16.2 H Neutrophils # 8.3 H APTT D-Dimer 3.17 H BUN 24 H Creatinine 0.42 L Glucose 121 H POC Glucose (mg/dL) C-Reactive Protein 5.7 H Urine Appearance Ur Specific [place] Urine Protein Urine Ketones Ur Leukocyte Esterase Urine RBC Ur Squamous Epith Cells Calcium Oxalate Crystal Urine Bacteria Urine Mucus 12/20/23 12/20/23 12/20/23 16:44 19:16 20:32 Hgb Hct MCV MCH MCHC RDW Neutrophils # APTT D-Dimer BUN Creatinine Glucose POC Glucose (mg/dL) 180 H 134 H C-Reactive Protein Urine Appearance Cloudy H Ur Specific [place] >1.050 H Urine Protein Trace H Urine Ketones Trace H Ur Leukocyte Esterase Small H Urine RBC 7 H Ur Squamous Epith Cells 13 H Calcium Oxalate Crystal Few H Urine Bacteria Rare H Urine Mucus Few H 12/20/23 21:00 Hgb Hct MCV MCH MCHC RDW Neutrophils # APTT 37.4 H D-Dimer BUN Creatinine Glucose POC Glucose (mg/dL) C-Reactive Protein Urine Appearance Ur Specific [place] Urine Protein Urine Ketones Ur Leukocyte Esterase Urine RBC Ur Squamous Epith Cells Calcium Oxalate Crystal Urine Bacteria Urine Mucus - Diagnostic Findings Chest x-ray: image reviewed CT scan - chest: image reviewed Assessment and Plan Plan: Shortness of breath, subacute, with a recent abdominal hernia repair and sedentary lifestyle. Could be related to a pulmonary embolism although this is not absolutely convincing. D-dimer is mildly elevated and the patient is a questionable filling defect in the right lower lobe pulmonary artery branch. Upper and lower extremities are negative. Currently on IV heparin. Awaiting echocardiogram Mild intermittent bronchial asthma Diabetes mellitus type 2 Morbid obesity Recent repair of a ventral abdominal wall hernia Microcytic anemia, rule out iron deficiency, rule out GI blood loss Hypothyroidism Hypertension History of depression Plan Agree on IV heparin for the time being. Based on her clinical scenario and recent abdominal surgery and obese habitus and sedentary lifestyle, it is reasonable to give the patient a course of anticoagulation for the next 3 to 6 months as long as there is no source of GI bleed. The patient does have some microcytic anemia. Will monitor hemoglobin very closely. Check iron studies. A GI workup may need to be done if iron deficiency has been confirmed including an EGD and a colonoscopy as the patient will likely require anticoagulation on outpatient basis. Clinically and hemodynamically stable Obtain echocardiogram Resume home medications Will follow
[2023-12-20] MEDS: HEPARIN SODIUM 1,000 UN/ML (10ML VL) IV PRN (22:56)
[2023-12-21 04:06] LABS: % Iron Saturation 6.37 (12.00-45.00); Ferritin 73.5 ng/mL (10.0-291.0)
[2023-12-21 04:37] LABS: Anisocytosis Slight; Basophils % (A) 0 %; Eosinophils # (A) 0.2 k/uL (0-0.7); Eosinophils % (A) 3 %; HCT 25.1 % (34.0-46.0); HGB 7.3 gm/dL (11.4-16.0); Hypochromasia Marked; Lymphocytes # (A) 0.9 k/uL (1.0-4.8); Lymphocytes % (A) 13 %; MCH 21.4 pg (25.0-35.0); MCHC 29.2 g/dL (31.0-37.0); MCV 73.5 fL (80.0-100.0); Mean Platelet Volume 6.6; Microcytosis Moderate; Monocytes # (A) 0.3 k/uL (0-1.0); Monocytes % (A) 4 %; Neutrophils # (A) 5.8 k/uL (1.3-7.7); Neutrophils % (A) 78 %; Platelet Count 275 k/uL (150-450); Poikilocytosis Slight; RBC 3.41 m/uL (3.80-5.40); RDW 16.7 % (11.5-15.5); WBC 7.5 k/uL (3.8-10.6)
[2023-12-21] MEDS: LEVOTHYROXINE 88 MCG TAB PO SCH (06:34)
[2023-12-21] MEDS ORDERED: metFORMIN 500 MG TAB PO SCH (07:30)
[2023-12-21 08:30] LABS: ALT 21 U/L (4-34); AST 23 U/L (14-36); African American GFR (CKD) >90 (>60 ml/min/1.73 sqM); Albumin 3.2 g/dL (3.5-5.0); Alkaline Phosphatase 73 U/L (38-126); Anion Gap 7 mmol/L; Blood Urea Nitrogen 18 mg/dL (7-17); Calcium 8.8 mg/dL (8.4-10.2); Carbon Dioxide 28 mmol/L (22-30); Chloride 103 mmol/L (98-107); Glucose 139 mg/dL (74-99); Non-African American GFR(CKD) >90 (>60 ml/min/1.73 sqM); Potassium 3.6 mmol/L (3.5-5.1); Sodium 138 mmol/L (137-145); Total Bilirubin 0.2 mg/dL (0.2-1.3)
[2023-12-21 08:48] LABS: Glucose,Whole Blood 157 mg/dL (70-110)
[2023-12-21] MEDS: FUROSEMIDE 20 MG TAB PO SCH (08:58)
[2023-12-21] MEDS: SERTRALINE 100 MG TAB PO SCH (08:58)
[2023-12-21] MEDS ORDERED: GLIMEPIRIDE 4 MG TAB PO SCH (09:00)
[2023-12-21] MEDS: PANTOPRAZOLE 40 MG/10 ML VIAL IV SCH ×2 (09:51→21:34)
--- NOTE | 2023-12-21 09:52 | CA ---
Transthoracic Echo Report Name: Luiza Gandara Age: 57 Gender: F : 1965 Exam Date: 12/20/2023 16:52 Exam Location: [facility] Ht (in): 64 Wt (lb): 255 Ordering Physician: Mayra Joel Attending/Referring Phys: Boating Safety Officer Donya Manning RCS Procedure CPT: Indications: Pulmonary embolus, eval for right heart strain Cardiac Hx: Technical Quality: Technically difficult study Contrast 1: Definity Total Dose (mL): 2 Contrast 2: Total Dose (mL): MEASUREMENTS (Male / Female) Normal Values 2D ECHO LV Diastolic Diameter PLAX 4.7 cm 4.2 - 5.9 / 3.9 - 5.3 cm LV Systolic Diameter PLAX 3.1 cm IVS Diastolic Thickness 1.1 cm 0.6 - 1.0 / 0.6 - 0.9 cm LVPW Diastolic Thickness 1.0 cm 0.6 - 1.0 / 0.6 - 0.9 cm LV Relative Wall Thickness 0.4 RV Internal Dim ED PLAX 2.8 cm LVOT Diameter 2.2 cm LV Diastolic Volume MOD BP 141.9 cm??? 67 - 155 / 56 - 104 cm??? LV Systolic Volume MOD BP 43.8 cm??? 22 - 58 / 19 - 49 cm??? LV Ejection Fraction MOD BP 69.1 % >= 55 % LV Cardiac Index MOD BP 3634.0 cm???/min???m??? LV Diastolic Volume MOD 4C 133.9 cm??? LV Systolic Volume MOD 4C 45.4 cm??? LV Ejection Fraction MOD 4C 66.1 % LV Cardiac Index MOD 4C 3275.3 cm???/min???m??? LV Diastolic Length 4C 9.6 cm LV Systolic Length 4C 7.2 cm LV Diastolic Volume MOD 2C 142.9 cm??? LV Systolic Volume MOD 2C 39.0 cm??? LV Ejection Fraction MOD 2C 72.7 % LV Cardiac Index MOD 2C 3846.0 cm???/min???m??? LV Diastolic Length 2C 9.0 cm LV Systolic Length 2C 6.7 cm LA Volume 64.2 cm??? 18 - 58 / 22 - 52 cm??? LA Volume Index 27.3 cm???/m??? 16 - 28 cm???/m??? DOPPLER AV Peak Velocity 170.5 cm/s AV Peak Gradient 11.6 mmHg AV Mean Velocity 124.1 cm/s AV Mean Gradient 6.7 mmHg AV Velocity Time Integral 32.8 cm LVOT Peak Velocity 126.1 cm/s LVOT Peak Gradient 6.4 mmHg LVOT Velocity Time Integral 25.8 cm LVOT Stroke Volume 99.8 cm??? LVOT Stroke Volume Index 46.0 ml/m??? LVOT Cardiac Index 3694.3 cm???/min???m??? AV Area Cont Eq vti 3.0 cm??? AV Area Cont Eq pk 2.9 cm??? MV Area PHT 4.0 cm??? Mitral E Point Velocity 93.2 cm/s Mitral A Point Velocity 80.2 cm/s Mitral E to A Ratio 1.2 MV Deceleration Time 187.5 ms TR Peak Velocity 233.4 cm/s TR Peak Gradient 21.8 mmHg PV Peak Velocity 116.2 cm/s PV Peak Gradient 5.4 mmHg FINDINGS Left Ventricle Left ventricular ejection fraction is estimated at 60-65 %. Mildly increased septal wall thickness. Mildly increased posterior wall thickness. . No obvious regional wall motion abnormalities. Right Ventricle Normal right ventricular size and function. Right ventricular systolic pressure within normal limits. Right Atrium Right atrium not well visualized. Left Atrium Moderately increased left atrial volume. Mildly increased left atrial area. Mitral Valve Structurally normal mitral valve. No evidence for mitral valve prolapse. No mitral stenosis. No mitral regurgitation. Aortic Valve Aortic valve not well visualized. No aortic stenosis. No aortic regurgitation. Tricuspid Valve Structurally normal tricuspid valve. No tricuspid stenosis. Trace to mild tricuspid regurgitation. Pulmonic Valve Pulmonic valve not well visualized. No pulmonic stenosis. No pulmonic regurgitation. Pericardium No pericardial effusion. Aorta Normal size aortic root and proximal ascending aorta. CONCLUSIONS Normal LV size and systolic function. Mild concentric LVH. No wall motion abnormalities. Right ventricle is of a normal size without significant pulmonary hypertension. No evidence of any strain. No other significant abnormality on the Doppler exam. An echo free space anteriorly may be a fat pad but no significant pericardial effusion Previewed by: Dr. Vasquez Higuera MD (Electronically Signed) Final Date: 21 December 2023 09:51
[2023-12-21] MEDS: SODIUM FERRIC GLUCONAT-SUCROSE 125 MG in SODIUM CHLORIDE 0.9% 100 ML IVPB SCH (09:54)
[2023-12-21 12:09] LABS: Glucose,Whole Blood 130 mg/dL (70-110)
--- NOTE | 2023-12-21 14:21 | P.PN ---
Subjective Progress Note Date: 12/21/23 Hospital Course: 57-year-old female with history of hypertension, diabetes, hypothyroidism, fabby ctive airway disease, depression presenting with shortness of breath. In the ED, temperature was 98.2, pulse 92, respiratory rate 22, blood pressure 144/61, saturating at 93% on room air. Initial chest x-ray independently interpreted, shows left hemidiaphragm and cardiomegaly, no acute opacities. EKG shows sinus rhythm. Chest CT shows small right middle and lower lobe pulmonary emboli. Laboratory workup shows hemoglobin 8.3 which has been similar to last month, however significant drop since 2018. MCV 72.3, D-dimer 3.17, creatinine 0.42, lactate 0.9, troponin negative, CRP 5.7, proBNP 116. Patient started on heparin drip, pulmonology consulted. Patient being admitted for nonmassive PE. Also has significant iron deficiency anemia. Started on IV iron. General surgery consulted due to concerns for possible GI bleed. Subjective: Patient seen and examined at bedside. No acute events overnight. Claims that breathing is slightly better. Pertinent positives and negatives as discussed above, a complete review of systems was performed and all other systems are negative. Vitals Signs Reviewed. General: nontoxic, no distress, appears at stated age, obese Derm: warm, dry Head: atraumatic, normocephalic, symmetric Eyes: EOMI, no lid lag, anicteric sclera, pupils equal round reactive to light ENT: Nose and ears atraumatic Neck: No thyromegaly, supple Mouth: no lip lesion, mucus membranes moist Cardiovascular: S1S2 reg, no murmur, no edema Lungs: clear to auscultation bilateral, no rhonchi, no rales, no wheeze, no accessory muscle use, supplemental oxygen Abdominal: soft, distended, nontender to palpation, no guarding, no appreciable organomegaly Ext: no gross muscle atrophy, muscle strength muscle strength 5 out of 5 in all 4 extremities, no contractures Neuro: CN II-XII grossly intact Psych: Alert, oriented, appropriate affect Data Reviewed Today: Pertinent Labs: Hemoglobin 7.3, creatinine 0.49, blood sugar sugars range between 1 30-1 57, A1c 6.8 Imaging: Echocardiogram report reviewed, shows mild concentric LVH, RV is of normal size without significant pulmonary hypertension, no evidence of any strain Assessment and Plan: Active: Nonmassive pulmonary embolism, likely acute, likely unprovoked Dyspnea History of asthma - Continue heparin drip, monitor APTT as well as bleeding, daily CBC - Pulmonology consulted - Continue albuterol as needed - Lower extremity Dopplers does not show any DVTs, complex area seen right popliteal area 5 x 3 x 1 cm. Iron deficiency anemia Reported history of hematuria -Urinalysis negative for significant hematuria Started on IV iron daily - Patient has a history of polyps, last colonoscopy 5 years ago, will likely need colonoscopy - General surgery consulted Type 2 diabetes - Sliding scale insulin, monitor for hypoglycemia Chronic: Hypothyroidism Hypertension Depression DVT ppx: Heparin drip Code status: Full code Anticipated discharge place: Pending clinical course Anticipated discharge time: Pending clinical course Objective - Vital Signs Vital signs: Vital Signs Temp 98.1 F 12/21/23 11:13 Pulse 78 12/21/23 11:13 Resp 18 12/21/23 11:13 BP 100/69 12/21/23 11:13 Pulse Ox 96 12/21/23 11:13 FiO2 Intake & Output 12/20/23 12/21/23 12/21/23 18:59 06:59 18:59 Intake Total 250.000 118 Balance 250.000 118 Weight 115.666 kg Intake: Intake, IV Titration 250.000 Amount Heparin Sod,Pork in 0.45% 250.000 NaCl 25,000 unit In 0.45 % NaCl 1 250ml.bag @ 18 UNITS/KG/HR 20.82 mls/hr IV .Q12H1M [facility] Rx#: [id number] Oral 118 - Labs CBC & Chem 7: 12/21/23 04:27 12/21/23 07:13 Labs: Abnormal Lab Results - Last 24 Hours (Table) 12/20/23 12/20/23 12/20/23 Range/Units 16:44 17:39 19:16 RBC (3.80-5.40) m/uL Hgb (11.4-16.0) gm/dL Hct (34.0-46.0) % MCV (80.0-100.0) fL MCH (25.0-35.0) pg MCHC (31.0-37.0) g/dL RDW (11.5-15.5) % Lymphocytes # (1.0-4.8) k/uL APTT (22.0-30.0) sec BUN (7-17) mg/dL Creatinine (0.52-1.04) mg/dL Glucose (74-99) mg/dL POC Glucose (mg/dL) 180 H (70-110) mg/dL Hemoglobin A1c (<=6.0) % Iron 20 L (50-170) UG/DL % Saturation 6.37 L (12.00-45.00) Total Protein (6.3-8.2) g/dL Albumin (3.5-5.0) g/dL Urine Appearance Cloudy H (Clear) Ur Specific Blanchard >1.050 H (1.001-1.035) Urine Protein Trace H (Negative) Urine Ketones Trace H (Negative) Ur Leukocyte Esterase Small H (Negative) Urine RBC 7 H (0-5) /hpf Ur Squamous Epith Cells 13 H (0-4) /hpf Calcium Oxalate Crystal Few H (None) /hpf Urine Bacteria Rare H (None) /hpf Urine Mucus Few H (None) /hpf 12/20/23 12/20/23 12/21/23 Range/Units 20:32 21:00 04:27 RBC (3.80-5.40) m/uL Hgb (11.4-16.0) gm/dL Hct (34.0-46.0) % MCV (80.0-100.0) fL MCH (25.0-35.0) pg MCHC (31.0-37.0) g/dL RDW (11.5-15.5) % Lymphocytes # (1.0-4.8) k/uL APTT 37.4 H (22.0-30.0) sec BUN (7-17) mg/dL Creatinine (0.52-1.04) mg/dL Glucose (74-99) mg/dL POC Glucose (mg/dL) 134 H (70-110) mg/dL Hemoglobin A1c 6.8 H (<=6.0) % Iron (50-170) UG/DL % Saturation (12.00-45.00) Total Protein (6.3-8.2) g/dL Albumin (3.5-5.0) g/dL Urine Appearance (Clear) Ur Specific Blanchard (1.001-1.035) Urine Protein (Negative) Urine Ketones (Negative) Ur Leukocyte Esterase (Negative) Urine RBC (0-5) /hpf Ur Squamous Epith Cells (0-4) /hpf Calcium Oxalate Crystal (None) /hpf Urine Bacteria (None) /hpf Urine Mucus (None) /hpf 12/21/23 12/21/23 12/21/23 Range/Units 04:27 04:27 07:13 RBC 3.41 L (3.80-5.40) m/uL Hgb 7.3 L (11.4-16.0) gm/dL Hct 25.1 L (34.0-46.0) % MCV 73.5 L (80.0-100.0) fL MCH 21.4 L (25.0-35.0) pg MCHC 29.2 L (31.0-37.0) g/dL RDW 16.7 H (11.5-15.5) % Lymphocytes # 0.9 L (1.0-4.8) k/uL APTT 57.8 H (22.0-30.0) sec BUN 18 H (7-17) mg/dL Creatinine 0.49 L (0.52-1.04) mg/dL Glucose 139 H (74-99) mg/dL POC Glucose (mg/dL) (70-110) mg/dL Hemoglobin A1c (<=6.0) % Iron (50-170) UG/DL % Saturation (12.00-45.00) Total Protein 6.0 L (6.3-8.2) g/dL Albumin 3.2 L (3.5-5.0) g/dL Urine Appearance (Clear) Ur Specific Blanchard (1.001-1.035) Urine Protein (Negative) Urine Ketones (Negative) Ur Leukocyte Esterase (Negative) Urine RBC (0-5) /hpf Ur Squamous Epith Cells (0-4) /hpf Calcium Oxalate Crystal (None) /hpf Urine Bacteria (None) /hpf Urine Mucus (None) /hpf 12/21/23 12/21/23 Range/Units 08:47 12:07 RBC (3.80-5.40) m/uL Hgb (11.4-16.0) gm/dL Hct (34.0-46.0) % MCV (80.0-100.0) fL MCH (25.0-35.0) pg MCHC (31.0-37.0) g/dL RDW (11.5-15.5) % Lymphocytes # (1.0-4.8) k/uL APTT (22.0-30.0) sec BUN (7-17) mg/dL Creatinine (0.52-1.04) mg/dL Glucose (74-99) mg/dL POC Glucose (mg/dL) 157 H 130 H (70-110) mg/dL Hemoglobin A1c (<=6.0) % Iron (50-170) UG/DL % Saturation (12.00-45.00) Total Protein (6.3-8.2) g/dL Albumin (3.5-5.0) g/dL Urine Appearance (Clear) Ur Specific Blanchard (1.001-1.035) Urine Protein (Negative) Urine Ketones (Negative) Ur Leukocyte Esterase (Negative) Urine RBC (0-5) /hpf Ur Squamous Epith Cells (0-4) /hpf Calcium Oxalate Crystal (None) /hpf Urine Bacteria (None) /hpf Urine Mucus (None) /hpf
--- NOTE | 2023-12-21 14:24 | P.PN ---
Subjective Progress Note Date: 12/21/23 This is a 57-year-old female patient is coming into the hospital because of worsening shortness of breath. Patient is morbidly obese. The patient has been experiencing shortness of breath for the past 2 to 3 weeks. Noted approximately 2 months ago, the patient had a repair of a large anterior abdominal wall hernia that was done at [facility]. Her course was uncomplicated. No previous history of DVT or pulmonary embolism. She reports some exertional dyspnea. No pleurisy. No hemoptysis. No chest pain. She has diabetes and hypertension hypothyroidism as comorbid conditions. No history of any malignancy. She came into the emergency room the patient's hemodynamics were essentially stable. As part of her routine blood work, the patient was given a D-dimer that was elevated at 3.1 and the rest of the coagulation profile within normal limits. Electrolytes are unremarkable. Renal function showed a creatinine of 0.7. LFTs were normal. Occult blood in the stool was negative. The patient was having some microcytic anemia with a hemoglobin of 8.3 and an MCV of 72 with a white cell count of 10.1 and a platelet count of 304. Initial chest x-ray showed no acute abnormalities and there was some elevation of left hemidiaphragm and cardiomegaly. CT angiogram of the chest showed a questionable filling defect in the right lower lobe pulmonary artery branch. No mediastinal lymphadenopathy. Some elevation of left hemidiaphragm and left basilar atelectatic changes were noted. Based on that, the patient was started on IV heparin. Doppler of the lower extremity showed no evidence of any DVTs. There was a cyst in the popliteal area measuring 5 cm in size in the right lower extremity. Currently on 2 L of oxygen by nasal cannula. No significant tachycardia. Has trace edema lower extremities bilaterally. UA is showing for WBCs, 7 RBCs, few bacteria. Negative for leukocyte esterase. Few oxalate stones. Troponin was negative. Lactic acid level was 0.9. proBNP level was 116. On 12/21/2023, seen the patient for a follow-up. The patient is hospitalized for worsening shortness of breath, the patient is suspected to have a pulmonary embolism. There was a questionable filling defect in the right lower lobe pulmonary artery branch and based on that the patient was started on anticoagulants. Echocardiogram was completed and the patient has normal RV, no pulm hypertension, normal LV, left-ventricular ejection fraction is essentially within normal limits in the order of 60 to 65%. Doppler lower extremity was also negative. The white cell count is 7.5 with hemoglobin 7.3 and platelet count of 275. BUN is 18 with a creatinine of 0.49. The patient is currently on 2 L of oxygen by nasal cannula with a pulse ox of 96 to 97%. No other significant events overnight. The patient remains on IV heparin for now. colonoscopy 5 years ago and the patient was found to have colonic polyps. Objective - Vital Signs Vital signs: Vital Signs Temp 98.2 F 12/20/23 12:09 Pulse 83 12/21/23 08:43 Resp 20 12/21/23 08:43 BP 102/73 12/21/23 08:43 Pulse Ox 97 12/21/23 08:51 FiO2 Intake & Output 12/20/23 12/21/23 12/21/23 18:59 06:59 18:59 Intake Total 250.000 Balance 250.000 Weight 115.666 kg Intake: Intake, IV Titration 250.000 Amount Heparin Sod,Pork in 0.45% 250.000 NaCl 25,000 unit In 0.45 % NaCl 1 250ml.bag @ 18 UNITS/KG/HR 20.82 mls/hr IV .Q12H1M [facility] Rx#: [id number] - Exam General: nontoxic, no distress, appears at stated age, obese Derm: warm, dry Head: atraumatic, normocephalic, symmetric Eyes: EOMI, no lid lag, anicteric sclera, pupils equal round reactive to light ENT: Nose and ears atraumatic Neck: No thyromegaly, supple Mouth: no lip lesion, mucus membranes moist Cardiovascular: S1S2 reg, no murmur, no edema Lungs: clear to auscultation bilateral, no rhonchi, no rales, no wheeze, no accessory muscle use Abdominal: soft, distended, nontender to palpation, no guarding, no appreciable organomegaly, scar of the previous abdominal surgery within the abdominal wall. Organs cannot be accurately palpated. Ext: no gross muscle atrophy, muscle strength muscle strength 5 out of 5 in all 4 extremities, no contractures Neuro: CN II-XII grossly intact Psych: Alert, oriented, appropriate affect - Labs CBC & Chem 7: 12/21/23 04:27 12/21/23 07:13 Labs: Abnormal Lab Results - Last 24 Hours (Table) 12/20/23 12/20/23 12/20/23 Range/Units 12:37 12:37 12:37 RBC (3.80-5.40) m/uL Hgb 8.3 L (11.4-16.0) gm/dL Hct 27.5 L (34.0-46.0) % MCV 72.3 L (80.0-100.0) fL MCH 21.8 L (25.0-35.0) pg MCHC 30.1 L (31.0-37.0) g/dL RDW 16.2 H (11.5-15.5) % Neutrophils # 8.3 H (1.3-7.7) k/uL Lymphocytes # (1.0-4.8) k/uL APTT (22.0-30.0) sec D-Dimer 3.17 H (<0.60) mg/L FEU BUN 24 H (7-17) mg/dL Creatinine 0.42 L (0.52-1.04) mg/dL Glucose 121 H (74-99) mg/dL POC Glucose (mg/dL) (70-110) mg/dL Hemoglobin A1c (<=6.0) % Iron (50-170) UG/DL % Saturation (12.00-45.00) C-Reactive Protein 5.7 H (<1.0) mg/dL Total Protein (6.3-8.2) g/dL Albumin (3.5-5.0) g/dL Urine Appearance (Clear) Ur Specific Morgan (1.001-1.035) Urine Protein (Negative) Urine Ketones (Negative) Ur Leukocyte Esterase (Negative) Urine RBC (0-5) /hpf Ur Squamous Epith Cells (0-4) /hpf Calcium Oxalate Crystal (None) /hpf Urine Bacteria (None) /hpf Urine Mucus (None) /hpf 12/20/23 12/20/23 12/20/23 Range/Units 16:44 17:39 19:16 RBC (3.80-5.40) m/uL Hgb (11.4-16.0) gm/dL Hct (34.0-46.0) % MCV (80.0-100.0) fL MCH (25.0-35.0) pg MCHC (31.0-37.0) g/dL RDW (11.5-15.5) % Neutrophils # (1.3-7.7) k/uL Lymphocytes # (1.0-4.8) k/uL APTT (22.0-30.0) sec D-Dimer (<0.60) mg/L FEU BUN (7-17) mg/dL Creatinine (0.52-1.04) mg/dL Glucose (74-99) mg/dL POC Glucose (mg/dL) 180 H (70-110) mg/dL Hemoglobin A1c (<=6.0) % Iron 20 L (50-170) UG/DL % Saturation 6.37 L (12.00-45.00) C-Reactive Protein (<1.0) mg/dL Total Protein (6.3-8.2) g/dL Albumin (3.5-5.0) g/dL Urine Appearance Cloudy H (Clear) Ur Specific Morgan >1.050 H (1.001-1.035) Urine Protein Trace H (Negative) Urine Ketones Trace H (Negative) Ur Leukocyte Esterase Small H (Negative) Urine RBC 7 H (0-5) /hpf Ur Squamous Epith Cells 13 H (0-4) /hpf Calcium Oxalate Crystal Few H (None) /hpf Urine Bacteria Rare H (None) /hpf Urine Mucus Few H (None) /hpf 12/20/23 12/20/23 12/21/23 Range/Units 20:32 21:00 04:27 RBC (3.80-5.40) m/uL Hgb (11.4-16.0) gm/dL Hct (34.0-46.0) % MCV (80.0-100.0) fL MCH (25.0-35.0) pg MCHC (31.0-37.0) g/dL RDW (11.5-15.5) % Neutrophils # (1.3-7.7) k/uL Lymphocytes # (1.0-4.8) k/uL APTT 37.4 H (22.0-30.0) sec D-Dimer (<0.60) mg/L FEU BUN (7-17) mg/dL Creatinine (0.52-1.04) mg/dL Glucose (74-99) mg/dL POC Glucose (mg/dL) 134 H (70-110) mg/dL Hemoglobin A1c 6.8 H (<=6.0) % Iron (50-170) UG/DL % Saturation (12.00-45.00) C-Reactive Protein (<1.0) mg/dL Total Protein (6.3-8.2) g/dL Albumin (3.5-5.0) g/dL Urine Appearance (Clear) Ur Specific Morgan (1.001-1.035) Urine Protein (Negative) Urine Ketones (Negative) Ur Leukocyte Esterase (Negative) Urine RBC (0-5) /hpf Ur Squamous Epith Cells (0-4) /hpf Calcium Oxalate Crystal (None) /hpf Urine Bacteria (None) /hpf Urine Mucus (None) /hpf 12/21/23 12/21/23 12/21/23 Range/Units 04:27 04:27 07:13 RBC 3.41 L (3.80-5.40) m/uL Hgb 7.3 L (11.4-16.0) gm/dL Hct 25.1 L (34.0-46.0) % MCV 73.5 L (80.0-100.0) fL MCH 21.4 L (25.0-35.0) pg MCHC 29.2 L (31.0-37.0) g/dL RDW 16.7 H (11.5-15.5) % Neutrophils # (1.3-7.7) k/uL Lymphocytes # 0.9 L (1.0-4.8) k/uL APTT 57.8 H (22.0-30.0) sec D-Dimer (<0.60) mg/L FEU BUN 18 H (7-17) mg/dL Creatinine 0.49 L (0.52-1.04) mg/dL Glucose 139 H (74-99) mg/dL POC Glucose (mg/dL) (70-110) mg/dL Hemoglobin A1c (<=6.0) % Iron (50-170) UG/DL % Saturation (12.00-45.00) C-Reactive Protein (<1.0) mg/dL Total Protein 6.0 L (6.3-8.2) g/dL Albumin 3.2 L (3.5-5.0) g/dL Urine Appearance (Clear) Ur Specific Morgan (1.001-1.035) Urine Protein (Negative) Urine Ketones (Negative) Ur Leukocyte Esterase (Negative) Urine RBC (0-5) /hpf Ur Squamous Epith Cells (0-4) /hpf Calcium Oxalate Crystal (None) /hpf Urine Bacteria (None) /hpf Urine Mucus (None) /hpf 12/21/23 Range/Units 08:47 RBC (3.80-5.40) m/uL Hgb (11.4-16.0) gm/dL Hct (34.0-46.0) % MCV (80.0-100.0) fL MCH (25.0-35.0) pg MCHC (31.0-37.0) g/dL RDW (11.5-15.5) % Neutrophils # (1.3-7.7) k/uL Lymphocytes # (1.0-4.8) k/uL APTT (22.0-30.0) sec D-Dimer (<0.60) mg/L FEU BUN (7-17) mg/dL Creatinine (0.52-1.04) mg/dL Glucose (74-99) mg/dL POC Glucose (mg/dL) 157 H (70-110) mg/dL Hemoglobin A1c (<=6.0) % Iron (50-170) UG/DL % Saturation (12.00-45.00) C-Reactive Protein (<1.0) mg/dL Total Protein (6.3-8.2) g/dL Albumin (3.5-5.0) g/dL Urine Appearance (Clear) Ur Specific Morgan (1.001-1.035) Urine Protein (Negative) Urine Ketones (Negative) Ur Leukocyte Esterase (Negative) Urine RBC (0-5) /hpf Ur Squamous Epith Cells (0-4) /hpf Calcium Oxalate Crystal (None) /hpf Urine Bacteria (None) /hpf Urine Mucus (None) /hpf Assessment and Plan Plan: Shortness of breath, subacute, with a recent abdominal hernia repair and sedentary lifestyle. Could be related to a pulmonary embolism although this is not absolutely convincing. D-dimer is mildly elevated and the patient is a questionable filling defect in the right lower lobe pulmonary artery branch. Upper and lower extremities are negative. Currently on IV heparin. Awaiting echocardiogram Mild intermittent bronchial asthma Diabetes mellitus type 2 Morbid obesity Recent repair of a ventral abdominal wall hernia Microcytic anemia, rule out iron deficiency, rule out GI blood loss Hypothyroidism Hypertension History of depression Plan Agree on IV heparin for the time being. Based on her clinical scenario and recent abdominal surgery and obese habitus and sedentary lifestyle, it is reasonable to give the patient a course of anticoagulation for the next 3 to 6 months as long as there is no source of GI bleed. The patient does have some microcytic anemia. Will monitor hemoglobin very closely. Check iron studies. A GI workup may need to be done if iron deficiency has been confirmed including an EGD and a colonoscopy as the patient will likely require anticoagulation on outpatient basis. Clinically and hemodynamically stable shows no evidence of any RV strain pattern of pulm hypertension. LV function is within normal limits. Obtain echocardiogram When asked to monitor hemoglobin prior to switching this patient to long-term anticoagulants. Hemoglobin currently is at 7.3. Noted previous colonoscopies have shown colonic polyps and this was done approximately 5 years ago. Resume home medications Will follow
--- NOTE | 2023-12-21 15:24 | P.GSCN ---
History of Present Illness Consult date: 12/21/23 History of present illness: CHIEF COMPLAINT: Shortness of breath Reason for consult anemia HISTORY OF PRESENT ILLNESS: This is a 57-year-old female with a known history of cerebral palsy. Patient's mobility is limited. She had noted to have worsening shortness of breath with walking. She came into the ER for evaluation and was found to have a PE. She is currently on IV heparin. Patient is anemic hemoglobin has dropped from 8.3-7.3. She was found to have iron deficiency anemia. She did report having 2 black stools earlier this week. She denies any nausea or vomiting. Denies any abdominal pain. She has never had an EGD. Last colonoscopy was in October 2020 that had reported a colon polyp. Patient reports that she is due for repeat colonoscopy this year. Patient did have a recent abdominal hernia repair out of [facility] October of this year. PAST MEDICAL HISTORY: See list. PAST SURGICAL HISTORY: See list. MEDICATIONS: See list. ALLERGIES: See list. SOCIAL HISTORY: No illicit drug use. REVIEW OF SYSTEMS: CONSTITUTIONAL: Denies fever or chills. HEENT: Denies blurred vision, vision changes, or eye pain. Denies hemoptysis ENDOCRINE: Denies heat or cold intolerance. CARDIOVASCULAR: Denies chest pain or pressure. RESPIRATORY: No shortness of breath. GASTROINTESTINAL: Denies abdominal pain. Denies nausea or vomiting. NEURO: Denies history of seizures. PSYCH: No depression or suicidal ideation HEMATOLOGIC: Denies bleeding disorders. LYMPHATIC: The patient denies any lumps and bumps around the neck. GENITOURINARY: Denies any blood in urine or increased urinary frequency. MUSCULOSKELETAL: Denies myalgias. Denies joint swelling. Denies decreased range of motion beyond patients baseline. SKIN: Denies pruitis. Denies rash. PHYSICAL EXAM: VITAL SIGNS: Reviewed GENERAL: Well-developed in no acute distress. HEENT: No sclera icterus. Extraocular movements grossly intact. Moist buccal mucosa. Head is atraumatic, normocephalic. Hears conversational speech. No nasal drainage. NECK: Supple without lymphadenopathy. CHEST: Non-labored respirations and equal bilateral excursions. CARDIOVASCULAR: Palpable 2+ radial pulses. ABDOMEN: Soft. Nondistended. Nontender MUSCULOSKELETAL: No clubbing or cyanosis. NEUROLOGIC: No focal or lateralizing signs. Cranial nerves II through XII grossly intact. PSYCH: Appropriate affect. Alert and oriented to person, place and time. SKIN: Well perfused. Good skin turgor. LABORATORY DATA: WBC 7.5 Hgb 8.3 down to 7.3 also note patient was anemic in November 2023 hemoglobin 8.7 Sodium 138 potassium 3.6 creatinine 0.49 Iron level low at 20 IMAGING: Chest CTA small right middle and lower lobe pulmonary emboli present Venous Doppler negative for DVT ASSESSMENT: 1. Anemia with melanotic stools prior to admission 2. New PE on IV heparin PLAN: -EGD and colonoscopy scheduled for Sunday -Agree with IV iron -Medicine service has ordered a CT scan of the abdomen and pelvis for GI bleed. Will follow-up on those results -Continue monitor hemoglobin -Continue to monitor for any signs or symptoms of bleeding -Okay to continue IV heparin for now -Increase IV Protonix to twice a day -Continue consistent carbohydrate diet for now Physician Nuclear Technician note has been reviewed by physician. Signing provider agrees with the documented findings, assessment, and plan of care. Please see additional documentation below CHIEF COMPLAINT: Iron deficiency anemia and colon polyps HISTORY OF PRESENT ILLNESS: The patient is a 58 year old female admitted for shortness of breath initially with the presumption of pneumonia now diagnosed with pulmonary embolism. She has a significant history of open ventral hernia repair done at outside facility less than 2 months ago. She was admitted with anemia admitting hemoglobin 8.3. With a pre-existing history of colon polyps and presentation of iron deficiency anemia, general surgery is consulted for anemia workup including upper and lower endoscopy. Currently, patient did have dark stools prior to admission. Inpatient hemoglobin has dropped at least 1 g. PAST MEDICAL HISTORY: See list and reviewed PAST SURGICAL HISTORY: See list and reviewed MEDICATIONS: See list and reviewed ALLERGIES: See list and reviewed SOCIAL HISTORY: See list and reviewed FAMILY HISTORY: See list and reviewed REVIEW OF ORGAN SYSTEMS: CONSTITUTIONAL: No fevers or chills. Morbid obesity, BMI 44.3 EYES: Denies any trouble with vision. No glasses. HEENT: No difficulties with hearing. No nosebleeds. No difficulty swallowing. RESPIRATORY: Has asthma. Presents with shortness of breath, significant with pulmonary embolism, new. Recently treated for pneumonia. CARDIOVASCULAR: Denies any chest pain, palpitations, or recent heart attacks. GASTROINTESTINAL: Denies fatty food intolerance. Denies change in bowel habits and gas bloat. GENITOURINARY: Denies any blood in urine or increased urinary frequency. Has ovarian cysts. NEUROLOGICAL: Denies any numbness or tingling along the distal extremities. No seizure disorders or headaches. MUSCULOSKELETAL: Denies any back pain, stiffness or joint arthritis. SKIN: No current skin cancer. No rash. PSYCHIATRIC: Has depressive disorder. ENDOCRINE: Has diabetes type 2. Has hypothyroidism. HEME/LYMPHATIC: Denies any lumps and bumps around the neck. No recent deep venous thrombosis. ALLERGY/IMMUNOLOGY: No immunoglobulin therapy. No immune deficiencies. BREAST: Denies current breast lumps, pain or nipple discharge. PHYSICAL EXAM: VITALS: Reviewed CONSTITUTIONAL: Well developed and in no acute distress. EYES: Conjuctivae without sclera icterus. Extraocular movements grossly intact. HEAD, EARS, NOSE, THROAT: Moist buccal mucosa. Head is atraumatic, normocephalic. Hears conversational speech. No nasal drainage. NECK: Supple. No JV distention. No thyroidomegaly. RESPIRATORY: Short of breath at the time of assessment with dyspnea. CARDIOVASCULAR: Palpable 2+ radial pulses. ABDOMEN: Protuberant. LYMPH: No neck lymphadenopathy. MUSCULOSKELETAL: No clubbing cyanosis or edema SKIN: Warm and well perfused with good skin turgor. NEUROLOGIC: Cranial nerves II through XII grossly intact. No focal or lateralizing signs. PSYCH: Appropriate affect. Alert and oriented to person, place and time. Displays appropriate insight. CLINCAL LABS: Reviewed. Admitting hemoglobin 8.3 down to 7.3 now up to 7.7, anemia. Iron panel low consistent with iron deficiency anemia. RADIOLOGY: Report reviewed of CTA demonstrates pulmonary emboli. REPORTS: Report demonstrates ejection fraction 60 to 65%. No pulmonary hypertension. ASSESSMENT: 1. Iron deficiency anemia 2. Personal history colon polyps 3. Morbid obesity due to excess calories, BMI 44.3 4. Diabetes type 2 [id number] 5. Hypothyroidism 6. Depressive disorder 7. Recent GI bleed PLAN: 1. Patient is scheduled for both upper and lower endoscopy due to iron def iciency anemia workup and recent GI bleed ADVANCE DIRECTIVE: CODE STATUS in chart. Thank you for this kind consultation. ADDENDUM: I was notified by nursing that new CT of the abdomen pelvis obtained by primary team. CT of the abdomen pelvis independently reviewed demonstrates large fluid collection of the subcutaneous tissue without air-fluid levels. Splenomegaly including hepatomegaly identified. This is my independent interpretation. With findings and clinical picture, high likelihood of abdominal wall seroma from graded hematoma. No obvious evidence of abdominal wall abscess given clinical presentation of normal white blood cell count. High likelihood that anemia is due to large hematoma no seroma. Recommend interventional radiology drainage of seroma. At this time, will defer colonoscopy. May proceed with upper endoscopy due to melanotic stools demonstrating upper GI source. Past Medical History Past Medical History: Asthma, Diabetes Mellitus, Osteoarthritis (OA), Thyroid Disorder Additional Past Medical History / Comment(s): ovarian cysts History of Any Multi-Drug Resistant Organisms: None Reported Past Surgical History: Hernia Repair Additional Past Surgical History / Comment(s): ovarian cyst removal Past Anesthesia/Blood Transfusion Reactions: No Reported Reaction, Motion Sickness Past Psychological History: Depression Smoking Status: Never smoker Past Alcohol Use History: Occasional Past Drug Use History: None Reported - Past Family History Sister(s) Family Medical History: Cancer Additional Family Medical History / Comment(s): breast cancer Medications and Allergies Home Medications Medication Instructions Recorded Confirmed Type Albuterol Nebulized [Ventolin 2.5 mg INHALATION RT-Q2H PRN 12/20/23 12/20/23 History Nebulized] Ergocalciferol (Vitamin D2) 1,250 mcg PO Q7D 12/20/23 12/20/23 History [Drisdol (50,000 Iu)] Furosemide [Lasix] 20 mg PO DAILY 12/20/23 12/20/23 History Glimepiride [Amaryl] 4 mg PO DAILY 12/20/23 12/20/23 History Levothyroxine Sodium [Synthroid] 175 mcg PO DAILY 12/20/23 12/20/23 History Sertraline [Zoloft] 100 mg PO DAILY 12/20/23 12/20/23 History metFORMIN HCL ER [Glucophage XR] 1,000 mg PO [id number] 12/20/23 12/20/23 History Allergies Allergy/AdvReac Type Severity Reaction Status Date / Time No Known Allergies Allergy Verified 12/20/23 15:18 Surgical - Exam Vital Signs Temp Pulse Resp BP Pulse Ox 98.2 F 92 22 144/61 93 L 12/20/23 12:09 12/20/23 12:09 12/20/23 12:09 12/20/23 12:09 12/20/23 12:09 Results - Labs 12/22/23 08:17 12/22/23 07:16 Abnormal Lab Results - Last 24 Hours (Table) 12/20/23 12/20/23 12/20/23 Range/Units 16:44 17:39 19:16 RBC (3.80-5.40) m/uL Hgb (11.4-16.0) gm/dL Hct (34.0-46.0) % MCV (80.0-100.0) fL MCH (25.0-35.0) pg MCHC (31.0-37.0) g/dL RDW (11.5-15.5) % Lymphocytes # (1.0-4.8) k/uL APTT (22.0-30.0) sec BUN (7-17) mg/dL Creatinine (0.52-1.04) mg/dL Glucose (74-99) mg/dL POC Glucose (mg/dL) 180 H (70-110) mg/dL Hemoglobin A1c (<=6.0) % Iron 20 L (50-170) UG/DL % Saturation 6.37 L (12.00-45.00) Total Protein (6.3-8.2) g/dL Albumin (3.5-5.0) g/dL Urine Appearance Cloudy H (Clear) Ur Specific [place] >1.050 H (1.001-1.035) Urine Protein Trace H (Negative) Urine Ketones Trace H (Negative) Ur Leukocyte Esterase Small H (Negative) Urine RBC 7 H (0-5) /hpf Ur Squamous Epith Cells 13 H (0-4) /hpf Calcium Oxalate Crystal Few H (None) /hpf Urine Bacteria Rare H (None) /hpf Urine Mucus Few H (None) /hpf 12/20/23 12/20/23 12/21/23 Range/Units 20:32 21:00 04:27 RBC (3.80-5.40) m/uL Hgb (11.4-16.0) gm/dL Hct (34.0-46.0) % MCV (80.0-100.0) fL MCH (25.0-35.0) pg MCHC (31.0-37.0) g/dL RDW (11.5-15.5) % Lymphocytes # (1.0-4.8) k/uL APTT 37.4 H (22.0-30.0) sec BUN (7-17) mg/dL Creatinine (0.52-1.04) mg/dL Glucose (74-99) mg/dL POC Glucose (mg/dL) 134 H (70-110) mg/dL Hemoglobin A1c 6.8 H (<=6.0) % Iron (50-170) UG/DL % Saturation (12.00-45.00) Total Protein (6.3-8.2) g/dL Albumin (3.5-5.0) g/dL Urine Appearance (Clear) Ur Specific [place] (1.001-1.035) Urine Protein (Negative) Urine Ketones (Negative) Ur Leukocyte Esterase (Negative) Urine RBC (0-5) /hpf Ur Squamous Epith Cells (0-4) /hpf Calcium Oxalate Crystal (None) /hpf Urine Bacteria (None) /hpf Urine Mucus (None) /hpf 12/21/23 12/21/23 12/21/23 Range/Units 04:27 04:27 07:13 RBC 3.41 L (3.80-5.40) m/uL Hgb 7.3 L (11.4-16.0) gm/dL Hct 25.1 L (34.0-46.0) % MCV 73.5 L (80.0-100.0) fL MCH 21.4 L (25.0-35.0) pg MCHC 29.2 L (31.0-37.0) g/dL RDW 16.7 H (11.5-15.5) % Lymphocytes # 0.9 L (1.0-4.8) k/uL APTT 57.8 H (22.0-30.0) sec BUN 18 H (7-17) mg/dL Creatinine 0.49 L (0.52-1.04) mg/dL Glucose 139 H (74-99) mg/dL POC Glucose (mg/dL) (70-110) mg/dL Hemoglobin A1c (<=6.0) % Iron (50-170) UG/DL % Saturation (12.00-45.00) Total Protein 6.0 L (6.3-8.2) g/dL Albumin 3.2 L (3.5-5.0) g/dL Urine Appearance (Clear) Ur Specific [place] (1.001-1.035) Urine Protein (Negative) Urine Ketones (Negative) Ur Leukocyte Esterase (Negative) Urine RBC (0-5) /hpf Ur Squamous Epith Cells (0-4) /hpf Calcium Oxalate Crystal (None) /hpf Urine Bacteria (None) /hpf Urine Mucus (None) /hpf 12/21/23 12/21/23 Range/Units 08:47 12:07 RBC (3.80-5.40) m/uL Hgb (11.4-16.0) gm/dL Hct (34.0-46.0) % MCV (80.0-100.0) fL MCH (25.0-35.0) pg MCHC (31.0-37.0) g/dL RDW (11.5-15.5) % Lymphocytes # (1.0-4.8) k/uL APTT (22.0-30.0) sec BUN (7-17) mg/dL Creatinine (0.52-1.04) mg/dL Glucose (74-99) mg/dL POC Glucose (mg/dL) 157 H 130 H (70-110) mg/dL Hemoglobin A1c (<=6.0) % Iron (50-170) UG/DL % Saturation (12.00-45.00) Total Protein (6.3-8.2) g/dL Albumin (3.5-5.0) g/dL Urine Appearance (Clear) Ur Specific [place] (1.001-1.035) Urine Protein (Negative) Urine Ketones (Negative) Ur Leukocyte Esterase (Negative) Urine RBC (0-5) /hpf Ur Squamous Epith Cells (0-4) /hpf Calcium Oxalate Crystal (None) /hpf Urine Bacteria (None) /hpf Urine Mucus (None) /hpf Diabetes panel 12/21/23 12/21/23 Range/Units 04:27 07:13 Sodium 138 (137-145) mmol/L Potassium 3.6 (3.5-5.1) mmol/L Chloride 103 (98-107) mmol/L Carbon Dioxide 28 (22-30) mmol/L BUN 18 H (7-17) mg/dL Creatinine 0.49 L (0.52-1.04) mg/dL Glucose 139 H (74-99) mg/dL Hemoglobin A1c 6.8 H (<=6.0) % Calcium 8.8 (8.4-10.2) mg/dL AST 23 (14-36) U/L ALT 21 (4-34) U/L Alkaline Phosphatase 73 (38-126) U/L Total Protein 6.0 L (6.3-8.2) g/dL Albumin 3.2 L (3.5-5.0) g/dL Calcium panel 12/21/23 Range/Units 07:13 Calcium 8.8 (8.4-10.2) mg/dL Albumin 3.2 L (3.5-5.0) g/dL Pituitary panel 12/21/23 Range/Units 07:13 Sodium 138 (137-145) mmol/L Potassium 3.6 (3.5-5.1) mmol/L Chloride 103 (98-107) mmol/L Carbon Dioxide 28 (22-30) mmol/L BUN 18 H (7-17) mg/dL Creatinine 0.49 L (0.52-1.04) mg/dL Glucose 139 H (74-99) mg/dL Calcium 8.8 (8.4-10.2) mg/dL Adrenal panel 12/21/23 Range/Units 07:13 Sodium 138 (137-145) mmol/L Potassium 3.6 (3.5-5.1) mmol/L Chloride 103 (98-107) mmol/L Carbon Dioxide 28 (22-30) mmol/L BUN 18 H (7-17) mg/dL Creatinine 0.49 L (0.52-1.04) mg/dL Glucose 139 H (74-99) mg/dL Calcium 8.8 (8.4-10.2) mg/dL Total Bilirubin 0.2 (0.2-1.3) mg/dL AST 23 (14-36) U/L ALT 21 (4-34) U/L Alkaline Phosphatase 73 (38-126) U/L Total Protein 6.0 L (6.3-8.2) g/dL Albumin 3.2 L (3.5-5.0) g/dL
[2023-12-21 16:29] LABS: Glucose,Whole Blood 192 mg/dL (70-110)
--- NOTE | 2023-12-21 18:08 | CT ---
EXAMINATION TYPE: CT abdomen pelvis w con CT DLP: 3245 mGycm, Automated exposure control for dose reduction was used. DATE OF EXAM: 12/21/2023 5:36 PM COMPARISON: CT abdomen pelvis most recent from 06/04/2023 CLINICAL INDICATION:Female, 57 years old with history of GI bleed; abdominal pain, GI bleed TECHNIQUE: Axial CT abdomen pelvis w con;Sagittal and coronal reformats were created on a separate w orkstation. Contrast used:100ml mL of Isovue 300 with IV Contrast, (none if empty) Oral contrast used: without Oral Contrast (none if empty) FINDINGS: LOWER CHEST: Left lower lobe consolidation changes are partially visualized. The heart is mildly enlarged for size. ABDOMEN LIVER: Focal fatty infiltration adjacent to the falciform ligament in segment IVb GALLBLADDER AND BILE DUCTS: Gallbladder is not definitively visualized and may be surgically absent. PANCREAS: Unremarkable. SPLEEN: Unremarkable. ADRENAL GLANDS: Unremarkable. KIDNEYS AND URETERS: No evidence of hydronephrosis or renal calculus. The ureters are unremarkable. PELVIS BLADDER: Unremarkable REPRODUCTIVE: Unremarkable. ABDOMEN & PELVIS STOMACH AND BOWEL: No evidence of bowel obstruction. PERITONEUM/RETROPERITONEUM: No evidence of pneumoperitoneum or free fluid. VASCULATURE: No evidence of aortic aneurysm. MUSCULOSKELETAL: No acute osseous abnormalities. Moderate disc degeneration changes are present throu ghout the thoracolumbar spine. LYMPH NODES: No gross evidence for lymphadenopathy. SOFT TISSUE/ABDOMINAL WALL: Large anterior abdominal wall fluid collection in the subcutaneous tissue s measuring 29 x 14 x 20 cm. New from prior. Possibly related to prior's anterior ventral wall hernia repair. IMPRESSION: 1. Large anterior abdominal wall subcutaneous fluid collection. This is new from 06/04/2023. Findings thought to represent postoperative seroma from hernia repair. Correlate clinically for underlying si gns and symptoms of infection which would suggest underlying abscess. 2. No evidence for acute abdominal process. 3. Consolidation changes in the left lung base as visualized. Correlate for atelectasis versus airsp ezio disease. 4. Mild cardiomegaly.
[2023-12-21 20:32] LABS: Glucose,Whole Blood 151 mg/dL (70-110)
[2023-12-21] MEDS: NYSTATIN 100,000 UNIT/GM POWD 15 GM TOPICAL SCH (21:34)
[2023-12-22 05:49] LABS: Glucose,Whole Blood 180 mg/dL (70-110)
[2023-12-22 08:12] LABS: African American GFR (CKD) >90 (>60 ml/min/1.73 sqM); Anion Gap 5 mmol/L; Blood Urea Nitrogen 12 mg/dL (7-17); Calcium 8.9 mg/dL (8.4-10.2); Carbon Dioxide 30 mmol/L (22-30); Chloride 103 mmol/L (98-107); Glucose 135 mg/dL (74-99); Non-African American GFR(CKD) >90 (>60 ml/min/1.73 sqM); Potassium 3.7 mmol/L (3.5-5.1); Sodium 138 mmol/L (137-145)
[2023-12-22 09:17] LABS: Anisocytosis Slight; HCT 27.1 % (34.0-46.0); HGB 7.7 gm/dL (11.4-16.0); Hypochromasia Marked; MCH 21.3 pg (25.0-35.0); MCHC 28.4 g/dL (31.0-37.0); MCV 74.8 fL (80.0-100.0); Mean Platelet Volume 7.6; Microcytosis Slight; Platelet Count 276 k/uL (150-450); Poikilocytosis Slight; RBC 3.62 m/uL (3.80-5.40); RDW 16.6 % (11.5-15.5); WBC 8.4 k/uL (3.8-10.6)
[2023-12-22 09:19] LABS: Anisocytosis Slight; Basophils % (A) 0 %; Eosinophils # (A) 0.2 k/uL (0-0.7); Eosinophils % (A) 3 %; HCT 26.8 % (34.0-46.0); HGB 7.7 gm/dL (11.4-16.0); Hypochromasia Marked; Lymphocytes # (A) 0.8 k/uL (1.0-4.8); Lymphocytes % (A) 10 %; MCH 21.3 pg (25.0-35.0); MCHC 28.6 g/dL (31.0-37.0); MCV 74.7 fL (80.0-100.0); Mean Platelet Volume 7.3; Microcytosis Slight; Monocytes # (A) 0.5 k/uL (0-1.0); Monocytes % (A) 6 %; Neutrophils # (A) 6.4 k/uL (1.3-7.7); Neutrophils % (A) 80 %; Platelet Count 281 k/uL (150-450); Poikilocytosis Slight; RBC 3.59 m/uL (3.80-5.40); RDW 16.5 % (11.5-15.5); WBC 8.1 k/uL (3.8-10.6)
--- NOTE | 2023-12-22 10:21 | P.PN ---
Subjective Progress Note Date: 12/22/23 Hospital Course: 57-year-old female with history of hypertension, diabetes, hypothyroidism, fabby ctive airway disease, depression presenting with shortness of breath. In the ED, temperature was 98.2, pulse 92, respiratory rate 22, blood pressure 144/61, saturating at 93% on room air. Initial chest x-ray independently interpreted, shows left hemidiaphragm and cardiomegaly, no acute opacities. EKG shows sinus rhythm. Chest CT shows small right middle and lower lobe pulmonary emboli. Laboratory workup shows hemoglobin 8.3 which has been similar to last month, however significant drop since 2018. MCV 72.3, D-dimer 3.17, creatinine 0.42, lactate 0.9, troponin negative, CRP 5.7, proBNP 116. Patient started on heparin drip, pulmonology consulted. Patient being admitted for nonmassive PE. Echocardiogram report reviewed, shows mild concentric LVH, RV is of normal size without significant pulmonary hypertension, no evidence of any strain. Also has significant iron deficiency anemia. Started on IV iron. General surgery consulted due to concerns for possible GI bleed. Pending EGD and colonoscopy on Sunday. Abdomen pelvis CT does show large anterior abdominal wall subcu fluid collection measuring 29 x 14 x 20 cm, appearance more consistent with postoperative seroma. Subjective: Patient seen and examined at bedside. No acute events overnight. Claims that breathing is still the same. Pertinent positives and negatives as discussed above, a complete review of systems was performed and all other systems are negative. Vitals Signs Reviewed. General: nontoxic, no distress, appears at stated age, obese Derm: warm, dry Head: atraumatic, normocephalic, symmetric Eyes: EOMI, no lid lag, anicteric sclera, pupils equal round reactive to light ENT: Nose and ears atraumatic Neck: No thyromegaly, supple Mouth: no lip lesion, mucus membranes moist Cardiovascular: S1S2 reg, no murmur, no edema Lungs: clear to auscultation bilateral, no rhonchi, no rales, no wheeze, no a ccessory muscle use, supplemental oxygen Abdominal: soft, distended, nontender to palpation, no guarding, no appreciable organomegaly Ext: no gross muscle atrophy, muscle strength muscle strength 5 out of 5 in all 4 extremities, no contractures Neuro: CN II-XII grossly intact Psych: Alert, oriented, appropriate affect Data Reviewed Today: Pertinent Labs: Hemoglobin 7.7, creatinine 0.56 Imaging: . Abdomen pelvis CT does show large anterior abdominal wall subcu fluid collection measuring 29 x 14 x 20 cm, appearance more consistent with postoperative seroma. Assessment and Plan: Active: Nonmassive pulmonary embolism, likely acute, likely unprovoked Dyspnea History of asthma - Continue heparin drip, monitor APTT as well as bleeding, daily CBC - Pulmonology consulted - Continue albuterol as needed - Lower extremity Dopplers does not show any DVTs, complex area seen right popliteal area 5 x 3 x 1 cm. Iron deficiency anemia Suspected GI bleed Postoperative large anterior abdominal wall seroma Started on IV iron daily - Patient has a history of polyps, last colonoscopy 5 years ago, will likely need colonoscopy - General surgery following, pending EGD and colonoscopy on Sunday IV Protonix 40 twice daily possibly seroma can also be a source of bleeding Hemoglobin stable Type 2 diabetes - Sliding scale insulin, monitor for hypoglycemia Chronic: Hypothyroidism Hypertension Depression DVT ppx: Heparin drip Code status: Full code Anticipated discharge place: Pending clinical course Anticipated discharge time: Pending clinical course Objective - Vital Signs Vital signs: Vital Signs Temp 97.9 F 12/22/23 08:22 Pulse 84 12/22/23 08:22 Resp 23 12/22/23 08:37 BP 123/63 12/22/23 08:22 Pulse Ox 96 12/22/23 08:22 FiO2 Intake & Output 12/21/23 12/22/23 12/22/23 18:59 06:59 18:59 Intake Total 868 685.498 110 Balance 868 685.498 110 Weight 115.666 kg 117 kg Intake: Intake, IV Titration 250 205.498 Amount Heparin Sod,Pork in 0.45% 250 205.498 NaCl 25,000 unit In 0.45 % NaCl 1 250ml.bag @ 18 UNITS/KG/HR 20.82 mls/hr IV .Q12H1M EREN Rx#: [id number] Oral 618 480 110 Other: Voiding Method Incontinent Toilet Toilet # Voids 1 2 # Bowel Movements 1 - Labs CBC & Chem 7: 12/22/23 08:17 12/22/23 07:16 Labs: Abnormal Lab Results - Last 24 Hours (Table) 12/21/23 12/21/23 12/21/23 Range/Units 12:07 16:27 20:31 RBC (3.80-5.40) m/uL Hgb (11.4-16.0) gm/dL Hct (34.0-46.0) % MCV (80.0-100.0) fL MCH (25.0-35.0) pg MCHC (31.0-37.0) g/dL RDW (11.5-15.5) % Lymphocytes # (1.0-4.8) k/uL APTT (22.0-30.0) sec Glucose (74-99) mg/dL POC Glucose (mg/dL) 130 H 192 H 151 H (70-110) mg/dL 12/22/23 12/22/23 12/22/23 Range/Units 05:48 07:16 07:31 RBC (3.80-5.40) m/uL Hgb (11.4-16.0) gm/dL Hct (34.0-46.0) % MCV (80.0-100.0) fL MCH (25.0-35.0) pg MCHC (31.0-37.0) g/dL RDW (11.5-15.5) % Lymphocytes # (1.0-4.8) k/uL APTT 62.0 H (22.0-30.0) sec Glucose 135 H (74-99) mg/dL POC Glucose (mg/dL) 180 H (70-110) mg/dL 12/22/23 12/22/23 Range/Units 08:17 08:17 RBC 3.62 L 3.59 L (3.80-5.40) m/uL Hgb 7.7 L 7.7 L (11.4-16.0) gm/dL Hct 27.1 L 26.8 L (34.0-46.0) % MCV 74.8 L 74.7 L (80.0-100.0) fL MCH 21.3 L 21.3 L (25.0-35.0) pg MCHC 28.4 L 28.6 L (31.0-37.0) g/dL RDW 16.6 H 16.5 H (11.5-15.5) % Lymphocytes # 0.8 L (1.0-4.8) k/uL APTT (22.0-30.0) sec Glucose (74-99) mg/dL POC Glucose (mg/dL) (70-110) mg/dL
[2023-12-22 11:08] LABS: Glucose,Whole Blood 210 mg/dL (70-110)
--- NOTE | 2023-12-22 14:41 | P.PN ---
Subjective Progress Note Date: 12/22/23 This is a 57-year-old female patient is coming into the hospital because of worsening shortness of breath. Patient is morbidly obese. The patient has been experiencing shortness of breath for the past 2 to 3 weeks. Noted approximately 2 months ago, the patient had a repair of a large anterior abdominal wall hernia that was done at [facility]. Her course was uncomplicated. No previous history of DVT or pulmonary embolism. She reports some exertional dyspnea. No pleurisy. No hemoptysis. No chest pain. She has diabetes and hypertension hypothyroidism as comorbid conditions. No history of any malignancy. She came into the emergency room the patient's hemodynamics were essentially stable. As part of her routine blood work, the patient was given a D-dimer that was elevated at 3.1 and the rest of the coagulation profile within normal limits. Electrolytes are unremarkable. Renal function showed a creatinine of 0.7. LFTs were normal. Occult blood in the stool was negative. The patient was having some microcytic anemia with a hemoglobin of 8.3 and an MCV of 72 with a white cell count of 10.1 and a platelet count of 304. Initial chest x-ray showed no acute abnormalities and there was some elevation of left hemidiaphragm and cardiomegaly. CT angiogram of the chest showed a questionable filling defect in the right lower lobe pulmonary artery branch. No mediastinal lymphadenopathy. Some elevation of left hemidiaphragm and left basilar atelectatic changes were noted. Based on that, the patient was started on IV heparin. Doppler of the lower extremity showed no evidence of any DVTs. There was a cyst in the popliteal area measuring 5 cm in size in the right lower extremity. Currently on 2 L of oxygen by nasal cannula. No significant tachycardia. Has trace edema lower extremities bilaterally. UA is showing for WBCs, 7 RBCs, few bacteria. Negative for leukocyte esterase. Few oxalate stones. Troponin was negative. Lactic acid level was 0.9. proBNP level was 116. On 12/21/2023, seen the patient for a follow-up. The patient is hospitalized for worsening shortness of breath, the patient is suspected to have a pulmonary embolism. There was a questionable filling defect in the right lower lobe pulmonary artery branch and based on that the patient was started on anticoagulants. Echocardiogram was completed and the patient has normal RV, no pulm hypertension, normal LV, left-ventricular ejection fraction is essentially within normal limits in the order of 60 to 65%. Doppler lower extremity was also negative. The white cell count is 7.5 with hemoglobin 7.3 and platelet count of 275. BUN is 18 with a creatinine of 0.49. The patient is currently on 2 L of oxygen by nasal cannula with a pulse ox of 96 to 97%. No other significant events overnight. The patient remains on IV heparin for now. colonoscopy 5 years ago and the patient was found to have colonic polyps. On today's evaluation of 12/22/2023, the patient is being seen for a follow-up. The patient is essentially doing well. No new complaints. She remains on IV heparin. CAT scan of the abdomen was also done and the patient was found to have a large anterior abdominal wall subcutaneous fluid collection and this is probably a seroma following her hernia repair. No evidence of any abscess. No evidence of any acute intra-abdominal process. Atelectatic changes seen left lung base and the patient has cardiomegaly. Meanwhile, hemoglobin is at 7.7 which is improved compared to yesterday. Platelet count of 281.Because of 8.1. She remains on IV heparin. BUN is at 12 with a creatinine of 0.5 and sodium levels at 139. The patient was also seen by general surgery. There are plans to continue monitoring the patient and perform an EGD and colonoscopy for M onday. She is on IV iron for now. The patient is also on IV Protonix. No evidence of any GI bleeding at this point in time. Objective - Vital Signs Vital signs: Vital Signs Temp 97.9 F 12/22/23 08:22 Pulse 84 12/22/23 08:22 Resp 23 12/22/23 08:37 BP 123/63 12/22/23 08:22 Pulse Ox 96 12/22/23 08:22 FiO2 Intake & Output 12/21/23 12/22/23 12/22/23 18:59 06:59 18:59 Intake Total 868 685.498 110 Balance 868 685.498 110 Weight 115.666 kg 117 kg Intake: Intake, IV Titration 250 205.498 Amount Heparin Sod,Pork in 0.45% 250 205.498 NaCl 25,000 unit In 0.45 % NaCl 1 250ml.bag @ 18 UNITS/KG/HR 20.82 mls/hr IV .Q12H1M [facility] Rx#: [id number] Oral 618 480 110 Other: Voiding Method Incontinent Toilet Toilet # Voids 1 2 # Bowel Movements 1 - Exam General: nontoxic, no distress, appears at stated age, obese Derm: warm, dry Head: atraumatic, normocephalic, symmetric Eyes: EOMI, no lid lag, anicteric sclera, pupils equal round reactive to light ENT: Nose and ears atraumatic Neck: No thyromegaly, supple Mouth: no lip lesion, mucus membranes moist Cardiovascular: S1S2 reg, no murmur, no edema Lungs: clear to auscultation bilateral, no rhonchi, no rales, no wheeze, no accessory muscle use Abdominal: soft, distended, nontender to palpation, no guarding, no appreciable organomegaly, scar of the previous abdominal surgery within the abdominal wall. Organs cannot be accurately palpated. Ext: no gross muscle atrophy, muscle strength muscle strength 5 out of 5 in all 4 extremities, no contractures Neuro: CN II-XII grossly intact Psych: Alert, oriented, appropriate affect - Labs CBC & Chem 7: 12/22/23 08:17 12/22/23 07:16 Labs: Abnormal Lab Results - Last 24 Hours (Table) 12/21/23 12/21/23 12/21/23 Range/Units 12:07 16:27 20:31 RBC (3.80-5.40) m/uL Hgb (11.4-16.0) gm/dL Hct (34.0-46.0) % MCV (80.0-100.0) fL MCH (25.0-35.0) pg MCHC (31.0-37.0) g/dL RDW (11.5-15.5) % Lymphocytes # (1.0-4.8) k/uL APTT (22.0-30.0) sec Glucose (74-99) mg/dL POC Glucose (mg/dL) 130 H 192 H 151 H (70-110) mg/dL 12/22/23 12/22/23 12/22/23 Range/Units 05:48 07:16 07:31 RBC (3.80-5.40) m/uL Hgb (11.4-16.0) gm/dL Hct (34.0-46.0) % MCV (80.0-100.0) fL MCH (25.0-35.0) pg MCHC (31.0-37.0) g/dL RDW (11.5-15.5) % Lymphocytes # (1.0-4.8) k/uL APTT 62.0 H (22.0-30.0) sec Glucose 135 H (74-99) mg/dL POC Glucose (mg/dL) 180 H (70-110) mg/dL 12/22/23 12/22/23 Range/Units 08:17 08:17 RBC 3.62 L 3.59 L (3.80-5.40) m/uL Hgb 7.7 L 7.7 L (11.4-16.0) gm/dL Hct 27.1 L 26.8 L (34.0-46.0) % MCV 74.8 L 74.7 L (80.0-100.0) fL MCH 21.3 L 21.3 L (25.0-35.0) pg MCHC 28.4 L 28.6 L (31.0-37.0) g/dL RDW 16.6 H 16.5 H (11.5-15.5) % Lymphocytes # 0.8 L (1.0-4.8) k/uL APTT (22.0-30.0) sec Glucose (74-99) mg/dL POC Glucose (mg/dL) (70-110) mg/dL Assessment and Plan Plan: Shortness of breath, subacute, with a recent abdominal hernia repair and sedentary lifestyle. Could be related to a pulmonary embolism although this is not absolutely convincing. D-dimer is mildly elevated and the patient is a questionable filling defect in the right lower lobe pulmonary artery branch. Upper and lower extremities are negative. Currently on IV heparin. Echocardiogram showed a preserved LV function without any significant pulm hypertension and RV size and structure was normal without any evidence of pulmonary hypertension. There is some atelectatic change in left lung base Left basilar atelectasis Mild intermittent bronchial asthma Diabetes mellitus type 2 Morbid obesity Recent repair of a ventral abdominal wall hernia, and the CAT scan of the abdomen shows a seroma related to surgery. No evidence of any acute intra-abdominal processes. Microcytic anemia, rule out iron deficiency, rule out GI blood loss Hypothyroidism Hypertension History of depression Plan Agree on IV heparin for the time being. Based on her clinical scenario and recent abdominal surgery and obese habitus and sedentary lifestyle, it is reasonable to give the patient a course of anticoagulation for the next 3 to 6 months as long as there is no source of GI bleed. The patient does have some microcytic anemia. Will monitor hemoglobin very closely. Check iron studies. A GI workup may need to be done if iron deficiency has been confirmed including an EGD and a colonoscopy as the patient will likely require anticoagulation on outpatient basis. Clinically and hemodynamically stable shows no evidence of any RV strain pattern of pulm hypertension. LV function is within normal limits. Echocardiogram was completed and the patient was found to have a ejection fraction is essentially preserved. No other significant abnormalities noted. RV was of normal size without any significant pulmonary hypertension. Hemoglobin is stable at 7.7. The patient is going to undergo an EGD and colonoscopy by Sunday. Noted previous colonoscopies have shown colonic polyps and this was done approximately 5 years ago. Resume home medications Will follow
[2023-12-22 16:19] LABS: Glucose,Whole Blood 175 mg/dL (70-110)
--- NOTE | 2023-12-22 16:31 | P.PN ---
Subjective Principal diagnosis: Patient seen and evaluated at bedside. Patient doing well, no acute events. Objective - Vital Signs Vital signs: Vital Signs Temp 97.9 F 12/22/23 08:22 Pulse 68 12/22/23 15:20 Resp 20 12/22/23 15:20 BP 104/61 12/22/23 15:20 Pulse Ox 93 L 12/22/23 15:20 FiO2 Intake & Output 12/21/23 12/22/23 12/22/23 18:59 06:59 18:59 Intake Total 868 685.498 220 Balance 868 685.498 220 Weight 115.666 kg 117 kg Intake: Intake, IV Titration 250 205.498 Amount Heparin Sod,Pork in 0.45% 250 205.498 NaCl 25,000 unit In 0.45 % NaCl 1 250ml.bag @ 18 UNITS/KG/HR 20.82 mls/hr IV .Q12H1M [facility] Rx#: [id number] Oral 618 480 220 Other: Voiding Method Incontinent Toilet Toilet # Voids 1 2 1 # Bowel Movements 1 1 - Exam gen: nad cv: rrr pul: non labored breathing abd: soft, non distended, no guarding or rebound tenderness - Labs CBC & Chem 7: 12/22/23 08:17 12/22/23 07:16 Labs: Abnormal Lab Results - Last 24 Hours (Table) 12/21/23 12/22/23 12/22/23 Range/Units 20:31 05:48 07:16 RBC (3.80-5.40) m/uL Hgb (11.4-16.0) gm/dL Hct (34.0-46.0) % MCV (80.0-100.0) fL MCH (25.0-35.0) pg MCHC (31.0-37.0) g/dL RDW (11.5-15.5) % Lymphocytes # (1.0-4.8) k/uL APTT (22.0-30.0) sec Glucose 135 H (74-99) mg/dL POC Glucose (mg/dL) 151 H 180 H (70-110) mg/dL 12/22/23 12/22/23 12/22/23 Range/Units 07:31 08:17 08:17 RBC 3.62 L 3.59 L (3.80-5.40) m/uL Hgb 7.7 L 7.7 L (11.4-16.0) gm/dL Hct 27.1 L 26.8 L (34.0-46.0) % MCV 74.8 L 74.7 L (80.0-100.0) fL MCH 21.3 L 21.3 L (25.0-35.0) pg MCHC 28.4 L 28.6 L (31.0-37.0) g/dL RDW 16.6 H 16.5 H (11.5-15.5) % Lymphocytes # 0.8 L (1.0-4.8) k/uL APTT 62.0 H (22.0-30.0) sec Glucose (74-99) mg/dL POC Glucose (mg/dL) (70-110) mg/dL 12/22/23 12/22/23 Range/Units 11:07 16:16 RBC (3.80-5.40) m/uL Hgb (11.4-16.0) gm/dL Hct (34.0-46.0) % MCV (80.0-100.0) fL MCH (25.0-35.0) pg MCHC (31.0-37.0) g/dL RDW (11.5-15.5) % Lymphocytes # (1.0-4.8) k/uL APTT (22.0-30.0) sec Glucose (74-99) mg/dL POC Glucose (mg/dL) 210 H 175 H (70-110) mg/dL Assessment and Plan Assessment: ASSESSMENT: 1. Anemia with melanotic stools prior to admission 2. New PE on IV heparin PLAN: -EGD and colonoscopy scheduled for Sunday -Agree with IV iron -Medicine service has ordered a CT scan of the abdomen and pelvis for GI bleed. Will follow-up on those results -Continue monitor hemoglobin -Continue to monitor for any signs or symptoms of bleeding -Okay to continue IV heparin for now -Increase IV Protonix to twice a day -Continue consistent carbohydrate diet for now
[2023-12-22 19:52] LABS: Glucose,Whole Blood 219 mg/dL (70-110)
[2023-12-23 06:16] LABS: Glucose,Whole Blood 177 mg/dL (70-110)
[2023-12-23] MEDS: LACTULOSE 20 GM/30 ML CUP PO ONE (08:14)
[2023-12-23] MEDS: ERGOCALCIFEROL 1,250 MCG (50,000 IU) CAPSULE PO SCH (08:15)
[2023-12-23] MEDS ORDERED: PEG 3350 (420 GM/BTL) + LYTES 4,000 ML BOTTLE PO ONE (09:00)
--- NOTE | 2023-12-23 09:44 | P.PN ---
Subjective Progress Note Date: 12/23/23 Hospital Course: 57-year-old female with history of hypertension, diabetes, hypothyroidism, re active airway disease, depression presenting with shortness of breath. In the ED, temperature was 98.2, pulse 92, respiratory rate 22, blood pressure 144/61, saturating at 93% on room air. Initial chest x-ray independently interpreted, shows left hemidiaphragm and cardiomegaly, no acute opacities. EKG shows sinus rhythm. Chest CT shows small right middle and lower lobe pulmonary emboli. Laboratory workup shows hemoglobin 8.3 which has been similar to last month, however significant drop since 2018. MCV 72.3, D-dimer 3.17, creatinine 0.42, lactate 0.9, troponin negative, CRP 5.7, proBNP 116. Patient started on heparin drip, pulmonology consulted. Patient being admitted for nonmassive PE. Echocardiogram report reviewed, shows mild concentric LVH, RV is of normal size without significant pulmonary hypertension, no evidence of any strain. Also has significant iron deficiency anemia. Started on IV iron. General surgery consulted due to concerns for possible GI bleed. Abdomen pelvis CT does show large anterior abdominal wall subcu fluid collection measuring 29 x 14 x 20 cm, appearance more consistent with postoperative seroma. Pending EGD and colonoscopy on Sunday. Subjective: Patient seen and examined at bedside. No acute events overnight. No new complaints Pertinent positives and negatives as discussed above, a complete review of systems was performed and all other systems are negative. Vitals Signs Reviewed. General: nontoxic, no distress, appears at stated age, obese Derm: warm, dry Head: atraumatic, normocephalic, symmetric Eyes: EOMI, no lid lag, anicteric sclera, pupils equal round reactive to light ENT: Nose and ears atraumatic Neck: No thyromegaly, supple Mouth: no lip lesion, mucus membranes moist Cardiovascular: S1S2 reg, no murmur, no edema Lungs: clear to auscultation bilateral, no rhonchi, no rales, no wheeze, no accessory muscle use, supplemental oxygen Abdominal: soft, distended, nontender to palpation, no guarding, no appreciable organomegaly Ext: no gross muscle atrophy, muscle strength muscle strength 5 out of 5 in all 4 extremities, no contractures Neuro: CN II-XII grossly intact Psych: Alert, oriented, appropriate affect Data Reviewed Today: Pertinent Labs: CBC and BMP pending, will be reviewed when available Imaging: No new imaging Assessment and Plan: Active: Nonmassive pulmonary embolism, likely acute, likely unprovoked Dyspnea History of asthma - Continue heparin drip, monitor APTT as well as bleeding, daily CBC - Pulmonology following - Continue albuterol as needed Iron deficiency anemia Suspected acute GI bleed Postoperative large anterior abdominal wall seroma Started on IV iron daily, changed to oral supplementation after EGD and colonoscopy - Patient has a history of polyps, last colonoscopy 5 years ago, will likely need colonoscopy - General surgery following, pending EGD and colonoscopy on Sunday - IV Protonix 40 twice daily -possibly seroma can also be a source of bleeding - Hemoglobin stable Type 2 diabetes - Sliding scale insulin, monitor for hypoglycemia Popliteal cyst -Outpatient follow-up Chronic: Hypothyroidism Hypertension Depression DVT ppx: Heparin drip Code status: Full code Anticipated discharge place: Pending clinical course Anticipated discharge time: Pending clinical course Objective - Vital Signs Vital signs: Vital Signs Temp 98.7 F 12/23/23 04:00 Pulse 77 12/23/23 08:12 Resp 20 12/23/23 08:12 BP 124/77 12/23/23 08:12 Pulse Ox 96 12/23/23 08:12 FiO2 Intake & Output 12/22/23 12/23/23 12/23/23 18:59 06:59 18:59 Intake Total 692 455.522 200 Balance 692 455.522 200 Intake: Intake, IV Titration 250 215.522 Amount Heparin Sod,Pork in 0.45% 250 215.522 NaCl 25,000 unit In 0.45 % NaCl 1 250ml.bag @ 18 UNITS/KG/HR 20.82 mls/hr IV .Q12H1M [facility] Rx#: [id number] Oral 442 240 200 Other: Voiding Method Toilet Toilet Toilet # Voids 1 # Bowel Movements 1 1 - Labs CBC & Chem 7: 12/22/23 08:17 12/22/23 07:16 Labs: Abnormal Lab Results - Last 24 Hours (Table) 12/22/23 12/22/23 12/22/23 Range/Units 11:07 16:16 19:43 POC Glucose (mg/dL) 210 H 175 H 219 H (70-110) mg/dL 12/23/23 Range/Units 06:15 POC Glucose (mg/dL) 177 H (70-110) mg/dL
[2023-12-23 10:18] LABS: Anisocytosis Slight; Basophils % (A) 1 %; Eosinophils # (A) 0.2 k/uL (0-0.7); Eosinophils % (A) 2 %; HCT 27.5 % (34.0-46.0); Hypochromasia Marked; Lymphocytes # (A) 0.7 k/uL (1.0-4.8); Lymphocytes % (A) 10 %; MCH 21.6 pg (25.0-35.0); MCHC 29.1 g/dL (31.0-37.0); MCV 74.3 fL (80.0-100.0); Mean Platelet Volume 7.6; Microcytosis Moderate; Monocytes # (A) 0.4 k/uL (0-1.0); Monocytes % (A) 5 %; Neutrophils # (A) 6.3 k/uL (1.3-7.7); Neutrophils % (A) 82 %; Platelet Count 303 k/uL (150-450); Poikilocytosis Slight; RDW 17.1 % (11.5-15.5); WBC 7.7 k/uL (3.8-10.6)
[2023-12-23 10:45] LABS: African American GFR (CKD) >90 (>60 ml/min/1.73 sqM); Anion Gap 6 mmol/L; Blood Urea Nitrogen 11 mg/dL (7-17); Calcium 8.8 mg/dL (8.4-10.2); Carbon Dioxide 31 mmol/L (22-30); Chloride 101 mmol/L (98-107); Glucose 227 mg/dL (74-99); Non-African American GFR(CKD) >90 (>60 ml/min/1.73 sqM); Potassium 3.7 mmol/L (3.5-5.1); Sodium 138 mmol/L (137-145)
[2023-12-23 11:18] LABS: Glucose,Whole Blood 199 mg/dL (70-110)
--- NOTE | 2023-12-23 11:51 | P.PN ---
Subjective Progress Note Date: 12/23/23 Please see additional documentation below CHIEF COMPLAINT: Iron deficiency anemia and colon polyps HISTORY OF PRESENT ILLNESS: The patient is a 58 year old female [id number] for shortness of breath including anemia. Patient incidentally had open hernia repair at [facility]. She last saw her providers 2 months ago in October. She reports no change in body habitus. Recent CT abdomen pelvis demonstrates large seroma of the subcutaneous tissue of the abdomen. Patient is still short of breath. Incidentally, patient has a pulmonary embolism. Patient also has acute blood loss anemia with GI bleed. She is receiving iron infusion. REVIEW OF ORGAN SYSTEMS: CONSTITUTIONAL: No fevers or chills. Morbid obesity, BMI 44.3 EYES: Denies any trouble with vision. No glasses. RESPIRATORY: Has asthma. Presents with shortness of breath, significant with pulmonary embolism, new. Recently treated for pneumonia. ENDOCRINE: Has diabetes type 2. Has hypothyroidism. PHYSICAL EXAM: VITALS: Reviewed CONSTITUTIONAL: Well developed and in no acute distress. EYES: Conjuctivae without sclera icterus. Extraocular movements grossly intact. HEAD, EARS, NOSE, THROAT: Moist buccal mucosa. Head is atraumatic, normocephalic. Hears conversational speech. No nasal drainage. NECK: Supple. No JV distention. No thyroidomegaly. RESPIRATORY: Short of breath at the time of assessment with dyspnea. CARDIOVASCULAR: Palpable 2+ radial pulses. ABDOMEN: Protuberant. MUSCULOSKELETAL: No clubbing cyanosis or edema SKIN: Warm and well perfused with good skin turgor. NEUROLOGIC: Cranial nerves II through XII grossly intact. No focal or lateralizing signs. PSYCH: Appropriate affect. Alert and oriented to person, place and time. Displays appropriate insight. CLINCAL LABS: Reviewed. Hemoglobin of 7.7-8.0, anemia. ASSESSMENT: 1. Iron deficiency anemia 2. Personal history colon polyps 3. Morbid obesity due to excess calories, BMI 44.3 4. Diabetes type 2 myn-ulthvjy-lrbmufjep 5. Hypothyroidism 6. Depressive disorder 7. Recent GI bleed 8. Postsurgical seroma 9. Pulmonary embolism PLAN: 1. Recommend upper endoscopy for GI bleed, upper GI source. 2. Hold heparin at midnight for upper endoscopy in the morning 3. Consultation interventional radiology for placement of drain for large abdominal wall seroma 4. Care plan reviewed with patient. Objective - Vital Signs Vital signs: Vital Signs Temp 98.7 F 12/23/23 04:00 Pulse 84 12/23/23 11:32 Resp 17 12/23/23 11:32 BP 117/77 12/23/23 11:32 Pulse Ox 96 12/23/23 11:32 FiO2 Intake & Output 12/22/23 12/23/23 12/23/23 18:59 06:59 18:59 Intake Total 692 455.522 200 Balance 692 455.522 200 Intake: Intake, IV Titration 250 215.522 Amount Heparin Sod,Pork in 0.45% 250 215.522 NaCl 25,000 unit In 0.45 % NaCl 1 250ml.bag @ 18 UNITS/KG/HR 20.82 mls/hr IV .Q12H1M [facility] Rx#: [id number] Oral 442 240 200 Other: Voiding Method Toilet Toilet Toilet # Voids 1 2 # Bowel Movements 1 1 - Labs CBC & Chem 7: 12/23/23 08:34 12/23/23 08:34 Labs: Abnormal Lab Results - Last 24 Hours (Table) 12/22/23 12/22/23 12/23/23 Range/Units 16:16 19:43 06:15 RBC (3.80-5.40) m/uL Hgb (11.4-16.0) gm/dL Hct (34.0-46.0) % MCV (80.0-100.0) fL MCH (25.0-35.0) pg MCHC (31.0-37.0) g/dL RDW (11.5-15.5) % Lymphocytes # (1.0-4.8) k/uL APTT (22.0-30.0) sec Carbon Dioxide (22-30) mmol/L Glucose (74-99) mg/dL POC Glucose (mg/dL) 175 H 219 H 177 H (70-110) mg/dL 12/23/23 12/23/23 12/23/23 Range/Units 08:34 08:34 08:34 RBC 3.70 L (3.80-5.40) m/uL Hgb 8.0 L (11.4-16.0) gm/dL Hct 27.5 L (34.0-46.0) % MCV 74.3 L (80.0-100.0) fL MCH 21.6 L (25.0-35.0) pg MCHC 29.1 L (31.0-37.0) g/dL RDW 17.1 H (11.5-15.5) % Lymphocytes # 0.7 L (1.0-4.8) k/uL APTT 67.5 H (22.0-30.0) sec Carbon Dioxide 31 H (22-30) mmol/L Glucose 227 H (74-99) mg/dL POC Glucose (mg/dL) (70-110) mg/dL 12/23/23 Range/Units 11:16 RBC (3.80-5.40) m/uL Hgb (11.4-16.0) gm/dL Hct (34.0-46.0) % MCV (80.0-100.0) fL MCH (25.0-35.0) pg MCHC (31.0-37.0) g/dL RDW (11.5-15.5) % Lymphocytes # (1.0-4.8) k/uL APTT (22.0-30.0) sec Carbon Dioxide (22-30) mmol/L Glucose (74-99) mg/dL POC Glucose (mg/dL) 199 H (70-110) mg/dL
--- NOTE | 2023-12-23 14:13 | P.PN ---
Subjective Progress Note Date: 12/23/23 This is a 57-year-old female patient is coming into the hospital because of worsening shortness of breath. Patient is morbidly obese. The patient has been experiencing shortness of breath for the past 2 to 3 weeks. Noted approximately 2 months ago, the patient had a repair of a large anterior abdominal wall hernia that was done at [facility]. Her course was uncomplicated. No previous history of DVT or pulmonary embolism. She reports some exertional dyspnea. No pleurisy. No hemoptysis. No chest pain. She has diabetes and hypertension hypothyroidism as comorbid conditions. No history of any malignancy. She came into the emergency room the patient's hemodynamics were essentially stable. As part of her routine blood work, the patient was given a D-dimer that was elevated at 3.1 and the rest of the coagulation profile within normal limits. Electrolytes are unremarkable. Renal function showed a creatinine of 0.7. LFTs were normal. Occult blood in the stool was negative. The patient was having some microcytic anemia with a hemoglobin of 8.3 and an MCV of 72 with a white cell count of 10.1 and a platelet count of 304. Initial chest x-ray showed no acute abnormalities and there was some elevation of left hemidiaphragm and cardiomegaly. CT angiogram of the chest showed a questionable filling defect in the right lower lobe pulmonary artery branch. No mediastinal lymphadenopathy. Some elevation of left hemidiaphragm and left basilar atelectatic changes were noted. Based on that, the patient was started on IV heparin. Doppler of the lower extremity showed no evidence of any DVTs. There was a cyst in the popliteal area measuring 5 cm in size in the right lower extremity. Currently on 2 L of oxygen by nasal cannula. No significant tachycardia. Has trace edema lower extremities bilaterally. UA is showing for WBCs, 7 RBCs, few bacteria. Negative for leukocyte esterase. Few oxalate stones. Troponin was negative. Lactic acid level was 0.9. proBNP level was 116. On 12/21/2023, seen the patient for a follow-up. The patient is hospitalized for worsening shortness of breath, the patient is suspected to have a pulmonary embolism. There was a questionable filling defect in the right lower lobe pulmonary artery branch and based on that the patient was started on anticoagulants. Echocardiogram was completed and the patient has normal RV, no pulm hypertension, normal LV, left-ventricular ejection fraction is essentially within normal limits in the order of 60 to 65%. Doppler lower extremity was also negative. The white cell count is 7.5 with hemoglobin 7.3 and platelet count of 275. BUN is 18 with a creatinine of 0.49. The patient is currently on 2 L of oxygen by nasal cannula with a pulse ox of 96 to 97%. No other significant events overnight. The patient remains on IV heparin for now. colonoscopy 5 years ago and the patient was found to have colonic polyps. On today's evaluation of 12/22/2023, the patient is being seen for a follow-up. The patient is essentially doing well. No new complaints. She remains on IV heparin. CAT scan of the abdomen was also done and the patient was found to have a large anterior abdominal wall subcutaneous fluid collection and this is probably a seroma following her hernia repair. No evidence of any abscess. No evidence of any acute intra-abdominal process. Atelectatic changes seen left lung base and the patient has cardiomegaly. Meanwhile, hemoglobin is at 7.7 which is improved compared to yesterday. Platelet count of 281.Because of 8.1. She remains on IV heparin. BUN is at 12 with a creatinine of 0.5 and sodium levels at 139. The patient was also seen by general surgery. There are plans to continue monitoring the patient and perform an EGD and colonoscopy for M onday. She is on IV iron for now. The patient is also on IV Protonix. No evidence of any GI bleeding at this point in time. On today's evaluation of 12/23/2023, the patient is being seen for a follow-up. Patient is doing well with no specific complaints. No respiratory distress. No chest pain. Hemoglobin stable at 8.0. She remains on IV heparin. The patient is going to undergo an EGD tomorrow to evaluate for any upper GI source of bleeding. Otherwise, she has no specific complaints. She is currently on 2 L of oxygen by nasal cannula with a pulse ox of 96%. The patient was seen by g eneral surgery and operative endoscopy for GI bleed is recommended. A consultation was also placed for interventional radiology for placement of a drain regarding the large abdominal wall seroma. Objective - Vital Signs Vital signs: Vital Signs Temp 98.7 F 12/23/23 04:00 Pulse 77 12/23/23 08:12 Resp 20 12/23/23 08:12 BP 124/77 12/23/23 08:12 Pulse Ox 96 12/23/23 08:12 FiO2 Intake & Output 12/22/23 12/23/23 12/23/23 18:59 06:59 18:59 Intake Total 692 455.522 200 Balance 692 455.522 200 Intake: Intake, IV Titration 250 215.522 Amount Heparin Sod,Pork in 0.45% 250 215.522 NaCl 25,000 unit In 0.45 % NaCl 1 250ml.bag @ 18 UNITS/KG/HR 20.82 mls/hr IV .Q12H1M [facility] Rx#: [id number] Oral 442 240 200 Other: Voiding Method Toilet Toilet Toilet # Voids 1 # Bowel Movements 1 1 - Exam General: nontoxic, no distress, appears at stated age, obese Derm: warm, dry Head: atraumatic, normocephalic, symmetric Eyes: EOMI, no lid lag, anicteric sclera, pupils equal round reactive to light ENT: Nose and ears atraumatic Neck: No thyromegaly, supple Mouth: no lip lesion, mucus membranes moist Cardiovascular: S1S2 reg, no murmur, no edema Lungs: clear to auscultation bilateral, no rhonchi, no rales, no wheeze, no accessory muscle use Abdominal: soft, distended, nontender to palpation, no guarding, no appreciable organomegaly, scar of the previous abdominal surgery within the abdominal wall. Organs cannot be accurately palpated. Ext: no gross muscle atrophy, muscle strength muscle strength 5 out of 5 in all 4 extremities, no contractures Neuro: CN II-XII grossly intact Psych: Alert, oriented, appropriate affect - Labs CBC & Chem 7: 12/23/23 08:34 12/23/23 08:34 Labs: Abnormal Lab Results - Last 24 Hours (Table) 12/22/23 12/22/23 12/22/23 Range/Units 11:07 16:16 19:43 POC Glucose (mg/dL) 210 H 175 H 219 H (70-110) mg/dL 12/23/23 Range/Units 06:15 POC Glucose (mg/dL) 177 H (70-110) mg/dL Assessment and Plan Plan: Shortness of breath, subacute, with a recent abdominal hernia repair and sedentary lifestyle. Could be related to a pulmonary embolism although this is not absolutely convincing. D-dimer is mildly elevated and the patient is a questionable filling defect in the right lower lobe pulmonary artery branch. Upper and lower extremities are negative. Currently on IV heparin. Echocardiogram showed a preserved LV function without any significant pulm hypertension and RV size and structure was normal without any evidence of pulmonary hypertension. There is some atelectatic change in left lung base Left basilar atelectasis Abdominal wall seroma posterior repair of the ventral hernia Mild intermittent bronchial asthma Diabetes mellitus type 2 Morbid obesity Recent repair of a ventral abdominal wall hernia, and the CAT scan of the abdomen shows a seroma related to surgery. No evidence of any acute intra- abdominal processes.. The patient has developed some abdominal seroma. Microcytic anemia, rule out iron deficiency, rule out GI blood loss Hypothyroidism Hypertension History of depression Plan Continue IV heparin Based on her clinical scenario and recent abdominal surgery and obese habitus and sedentary lifestyle, it is reasonable to give the patient a course of anticoagulation for the next 3 to 6 months as long as there is no source of GI bleed. The patient does have some microcytic anemia. Will monitor hemoglobin very closely. Check iron studies. A GI workup may need to be done if iron deficiency has been confirmed including an EGD. The patient is going to undergo an upper endoscopy tomorrow. Interventional radiology regarding the surgical seroma. The patient has developed a postsurgical seroma based on the CAT scan findings. Clinically and hemodynamically stable shows no evidence of any RV strain pattern of pulm hypertension. LV function is within normal limits. Echocardiogram was completed and the patient was found to have a ejection fraction is essentially preserved. No other significant abnormalities noted. RV was of normal size without any significant pulmonary hypertension. Hemoglobin is stable. The patient is going to undergo an EGD and colonoscopy by Sunday. Noted previous colonoscopies have shown colonic polyps and this was done approximately 5 years ago. Resume home medications Will follow
[2023-12-23 16:10] LABS: Glucose,Whole Blood 156 mg/dL (70-110)
[2023-12-23 20:06] LABS: Glucose,Whole Blood 144 mg/dL (70-110)
[2023-12-24 06:03] LABS: Glucose,Whole Blood 174 mg/dL (70-110)
[2023-12-24 07:09] LABS: Anisocytosis Slight; Basophils % (A) 0 %; Eosinophils # (A) 0.2 k/uL (0-0.7); Eosinophils % (A) 2 %; HCT 26.7 % (34.0-46.0); HGB 7.9 gm/dL (11.4-16.0); Hypochromasia Marked; Lymphocytes # (A) 0.5 k/uL (1.0-4.8); Lymphocytes % (A) 7 %; MCHC 29.7 g/dL (31.0-37.0); Mean Platelet Volume 6.7; Microcytosis Moderate; Monocytes # (A) 0.3 k/uL (0-1.0); Monocytes % (A) 5 %; Neutrophils # (A) 5.5 k/uL (1.3-7.7); Neutrophils % (A) 83 %; Platelet Count 264 k/uL (150-450); Poikilocytosis Slight; RBC 3.61 m/uL (3.80-5.40); RDW 17.5 % (11.5-15.5); WBC 6.6 k/uL (3.8-10.6)
[2023-12-24] MEDS ORDERED: LIDOCAINE 1% INJ 10MG/ML (20 ML MDV) ONE (07:49)
[2023-12-24] MEDS ORDERED: PROPOFOL 10 MG/ML 20 ML VIAL IV ONE (07:49)
[2023-12-24] MEDS ORDERED: ALBUTEROL HFA INHALER INHALATION ONE (07:49)
[2023-12-24] MEDS: LACTATED RINGERS 1,000 ML IV ONE ×2 (07:58→08:04)
--- NOTE | 2023-12-24 10:07 | P.PCN ---
Date of Procedure: 12/24/23 Description of Procedure: PREOPERATIVE DIAGNOSIS: Acute gastrointestinal bleeding Melanotic stool Pulmonary embolism, acute Morbid obesity due to excess calories, BMI 43.2 Anticoagulant use POSTOPERATIVE DIAGNOSIS: Diaphragmatic hiatal hernia Linder's esophagus OPERATION: Esophagogastroduodenoscopy SURGEON: Tina Lerner MD ANESTHESIA: MAC. INDICATIONS: The patient is a 58-year-old female who presents with gastrointestinal bleeding. Benefits and risks of the procedure were described. Informed consent was obtained. DESCRIPTION: The patient was brought into the endoscopy suite and laid in the left lateral decubitus position. An Olympus gastroscope was passed along the posterior oropharynx down to the distal esophagus where the squamocolumnar junction was encountered at 28 cm from the incisors. The stomach was entered and no bile reflux was found. Additional findings are listed below. The first through third portion of the duodenum was examined and unremarkable. Retroflexion of the scope confirmed Hill grade 2 lower esophageal valve. The squamocolumnar junction demonstrated LA grade B erosive esophagitis. The stomach was desufflated. The patient tolerated the procedure well. FINDINGS: Squamocolumnar junction 28 cm from the incisors. Diaphragmatic hiatus at 41 cm. Long segment Linder's esophagus, 28 cm to 39 cm from the incisors, 11 cm Hiatal hernia, 2 cm Hill grade 4 lower esophageal valve. LA grade D erosive esophagitis. No active duodenitis. No stigmata of bleeding RECOMMENDATIONS: 1. Protonix 40 mg daily for Linder's esophagus 2. Recommend repeat upper endoscopy with biopsies for Linder's esophagus after appropriate treatment
[2023-12-24 11:27] LABS: Glucose,Whole Blood 169 mg/dL (70-110)
--- NOTE | 2023-12-24 12:19 | P.PN ---
Subjective Progress Note Date: 12/24/23 Hospital course: Patient is a very pleasant 58-year-old female with a past medical history of hypertension, diabetes, hypothyroidism, depression and reactive airway disease. She presented to the emergency department on 12/20/2023 with a chief complaint of shortness of breath. Upon arrival to our facility patient underwent evaluation. Vital signs revealed blood pressure 144/61, heart rate 92, respiratory rate 22, temp 98.2 F, and SpO2 of 93% on room air. EKG was completed showing normal sinus rhythm at 84 bpm with no significant T wave or ST abnormalities showing no signs of acute ischemia upon personal review and interpretation. Chest x-ray completed showing cardiomegaly with elevation of the left diaphragm. Labs were completed and reviewed. CBC showing microcytic anemia with hemoglobin of 8.3 BMP showing mild prerenal azotemia with BUN of 24. Liver profile unremarkable. Troponin negative at less than 0.012. proBNP 116. CRP was elevated at 5.7. D- dimer also elevated at 3.17. CTA chest was completed showing small right middle and lower lobe pulmonary emboli. Bilateral lower extremity Dopplers were completed negative for DVTs. Patient was started on anticoagulation and admitted under our services with consultation to pulmonology. Echocardiogram was completed showing a preserved EF of 60 to 65% and no signs of significant pulmonary hypertension or evidence of right heart strain. Iron profile showing iron of 20, TIBC of 314, iron percent saturation of 6.37, transferrin of 225, and ferritin of 73.5. Urinalysis positive for protein and ketones negative for blood or infection. On 12/21/2023 hemoglobin dropping to 7.3 and general surgery was consulted for evaluation to rule out GI bleed. CT abdomen and pelvis was completed revealing a large anterior abdominal wall subcutaneous fluid collection measuring 29 x 14 x 20 cm concerning for postoperative seroma from recent hernia repair otherwise negative for acute cardiopulmonary process. Patient was evaluated by general surgery and is scheduled for EGD and colonoscopy today. Physical exam: Patient seen and fully evaluated at bedside this morning. She was sitting on side of bed, denies having any pain or complaints at this time. Patient awaiting to be taken down for EGD and colonoscopy today. Vital signs reviewed and stable. General: Nontoxic, no distress and appears stated age. Derm: Skin warm and dry, normal coloration for ethnicity. Head: Atraumatic, normocephalic and symmetric. Eyes: EOMs intact, no lid lag, and anicteric sclera Mouth: no lip lesions, mucus membranes moist Cardiovascular: regular rate and rhythm with normal S1S2, no murmur, positive posterior tibial pulses bilaterally, and cap refill < 2 seconds. Lungs: Respirations even, regular, and unlabored. Lungs diminished, no rhonchi, no rales, no wheezing, and no accessory muscle usage. Abdominal: soft distended, nontender to palpation, no guarding, no appreciable organomegaly Ext: ROM intact. No gross muscle atrophy, no edema, no contractures Neuro: Speech clear, face symmetrical and CN II-XII grossly intact with no noted focal neuro deficits Psych: Alert and oriented to person, place, time, and situation. Appropriate and pleasant affect. Assessment and Plan of Care: Nonmassive pulmonary embolism, likely acute, likely unprovoked Dyspnea History of asthma - Continue heparin drip, monitor APTT as well as bleeding, daily CBC - Pulmonology following - Continue albuterol as needed Iron deficiency anemia Suspected acute GI bleed Postoperative large anterior abdominal wall seroma -Started on IV iron daily, currently on day 4 and will change to oral supplementation after EGD and colonoscopy -Patient has a history of polyps, last colonoscopy 5 years ago. -General surgery following, taking patient for EGD and colonoscopy later today. -Continue IV Protonix 40 twice daily -Possibly seroma can also be a source of bleeding -Hemoglobin stable at 7.9 Type 2 diabetes with hemoglobin A1c of 6.8% -Hold Glucophage and continue glycemic protocol with NovoLog sliding scale insulin, monitor for hypoglycemia Popliteal cyst -Outpatient follow-up Hypothyroidism -Continue levothyroxine 176 mcg daily. Depression -Continue Zoloft 100 mg daily. Data and imaging reviewed: Morning labs reviewed. CBC showing stable normocytic anemia with hemoglobin of 7.9. Blood glucose 174. Vital signs reviewed and stable with blood pressure 108/54, heart rate 85, respiratory rate 16, temp 97.7 F, and SpO2 of 96% on 2 L O2. CODE STATUS: Full code DVT prophylaxis: Heparin Anticipated discharge date: Clinical course to determine Anticipated discharge place: Home Patient was seen independently by Nurse Pracitioner. This document was prepared using [employer] dictation software. Please allow for er rors in family law paralegal, while rare they do occur. I reviewed the documentation as provided by the JACKSON above, who is the original author of this note. I agree with the documented assessment and plan, with the following changes: none Objective - Vital Signs Vital signs: Vital Signs Temp 97.7 F 12/24/23 04:00 Pulse 67 12/24/23 04:00 Resp 18 12/24/23 04:00 BP 134/80 12/24/23 04:00 Pulse Ox 94 L 12/24/23 04:00 FiO2 Intake & Output 12/23/23 12/24/23 12/24/23 18:59 06:59 18:59 Intake Total 870 168.1 Balance 870 168.1 Weight 114.1 kg Intake: Intake, IV Titration 250 168.1 Amount Heparin Sod,Pork in 0.45% 250 168.1 NaCl 25,000 unit In 0.45 % NaCl 1 250ml.bag @ 18 UNITS/KG/HR 20.82 mls/hr IV .Q12H1M [facility] Rx#: [id number] Oral 620 Other: Voiding Method Toilet Toilet # Voids 2 3 - Labs CBC & Chem 7: 12/27/23 10:07 12/27/23 10:07 Labs: Abnormal Lab Results - Last 24 Hours (Table) 12/23/23 12/23/23 12/23/23 Range/Units 08:34 08:34 08:34 RBC 3.70 L (3.80-5.40) m/uL Hgb 8.0 L (11.4-16.0) gm/dL Hct 27.5 L (34.0-46.0) % MCV 74.3 L (80.0-100.0) fL MCH 21.6 L (25.0-35.0) pg MCHC 29.1 L (31.0-37.0) g/dL RDW 17.1 H (11.5-15.5) % Lymphocytes # 0.7 L (1.0-4.8) k/uL APTT 67.5 H (22.0-30.0) sec Carbon Dioxide 31 H (22-30) mmol/L Glucose 227 H (74-99) mg/dL POC Glucose (mg/dL) (70-110) mg/dL 12/23/23 12/23/23 12/23/23 Range/Units 11:16 16:09 20:04 RBC (3.80-5.40) m/uL Hgb (11.4-16.0) gm/dL Hct (34.0-46.0) % MCV (80.0-100.0) fL MCH (25.0-35.0) pg MCHC (31.0-37.0) g/dL RDW (11.5-15.5) % Lymphocytes # (1.0-4.8) k/uL APTT (22.0-30.0) sec Carbon Dioxide (22-30) mmol/L Glucose (74-99) mg/dL POC Glucose (mg/dL) 199 H 156 H 144 H (70-110) mg/dL 12/24/23 12/24/23 Range/Units 06:02 06:12 RBC 3.61 L (3.80-5.40) m/uL Hgb 7.9 L (11.4-16.0) gm/dL Hct 26.7 L (34.0-46.0) % MCV 74.0 L (80.0-100.0) fL MCH 22.0 L (25.0-35.0) pg MCHC 29.7 L (31.0-37.0) g/dL RDW 17.5 H (11.5-15.5) % Lymphocytes # 0.5 L (1.0-4.8) k/uL APTT (22.0-30.0) sec Carbon Dioxide (22-30) mmol/L Glucose (74-99) mg/dL POC Glucose (mg/dL) 174 H (70-110) mg/dL
--- NOTE | 2023-12-24 13:14 | US ---
EXAMINATION TYPE: US viseral fluid drainage DATE OF EXAM: 12/24/2023 1:04 PM CLINICAL INDICATION:Female, 58 years old with history of right pleural effusion COMPARISON: 12/21/2023. TECHNIQUE: Ultrasound-guided chest tube insertion. PROCEDURE: Informed consent was obtained. Safe access in the abdominal subcutaneous complex fluid collection was identified via ultrasound. The safest allowable access to the complex abdominal fluid collection in the subcutaneous tissues. The patient was then prepped and draped in the usual sterile fashion. Local anesthesia was provided. Trocar technique was used with a 8-Malawian pigtail catheter placed into flui d collection. Placement was confirmed with ultrasound guidance. Approximately 20 mL was drained and sent to the lab for analysis. A water sealed container was then hooked up. The tubing was affixed to the skin. There was no blood loss and post-procedure hemostasis was achieved. The patient tolerated the procedure well without complication. Patient was transferr ed to the general medical floor in stable condition. IMPRESSION: Successful 8 Malawian tube placement within the right pleural space.
--- NOTE | 2023-12-24 15:55 | P.PN ---
Subjective Progress Note Date: 12/24/23 Principal diagnosis: Acute pulmonary embolism and abdominal wall seroma This is a 57-year-old female patient is coming into the hospital because of worsening shortness of breath. Patient is morbidly obese. The patient has been experiencing shortness of breath for the past 2 to 3 weeks. Noted approximately 2 months ago, the patient had a repair of a large anterior abdominal wall hernia that was done at [facility]. Her course was uncomplicated. No previous history of DVT or pulmonary embolism. She reports some exertional dyspnea. No pleurisy. No hemoptysis. No chest pain. She has diabetes and hypertension hypothyroidism as comorbid conditions. No history of any malignancy. She came into the emergency room the patient's hemodynamics were essentially stable. As part of her routine blood work, the patient was given a D-dimer that was elevated at 3.1 and the rest of the coagulation profile within normal limits. Electrolytes are unremarkable. Renal function showed a creatinine of 0.7. LFTs were normal. Occult blood in the stool was negative. The patient was having some microcytic anemia with a hemoglobin of 8.3 and an MCV of 72 with a white cell count of 10.1 and a platelet count of 304. Initial chest x-ray showed no acute abnormalities and there was some elevation of left hemidiaphragm and cardiomegaly. CT angiogram of the chest showed a questionable filling defect in the right lower lobe pulmonary artery branch. No mediastinal lymphadenopathy. Some elevation of left hemidiaphragm and left basilar atelectatic changes were noted. Based on that, the patient was started on IV heparin. Doppler of the lower extremity showed no evidence of any DVTs. There was a cyst in the popliteal area measuring 5 cm in size in the right lower extremity. Currently on 2 L of oxygen by nasal cannula. No significant tachycardia. Has trace edema lower extremities bilaterally. UA is showing for WBCs, 7 RBCs, few bacteria. Negative for leukocyte esterase. Few oxalate stones. Troponin was negative. Lactic acid level was 0.9. proBNP level was 116. On 12/21/2023, seen the patient for a follow-up. The patient is hospitalized for worsening shortness of breath, the patient is suspected to have a pulmonary embolism. There was a questionable filling defect in the right lower lobe pulmonary artery branch and based on that the patient was started on anticoagulants. Echocardiogram was completed and the patient has normal RV, no pulm hypertension, normal LV, left-ventricular ejection fraction is essentially within normal limits in the order of 60 to 65%. Doppler lower extremity was also negative. The white cell count is 7.5 with hemoglobin 7.3 and platelet count of 275. BUN is 18 with a creatinine of 0.49. The patient is currently on 2 L of oxygen by nasal cannula with a pulse ox of 96 to 97%. No other significant events overnight. The patient remains on IV heparin for now. colonoscopy 5 years ago and the patient was found to have colonic polyps. On today's evaluation of 12/22/2023, the patient is being seen for a follow-up. The patient is essentially doing well. No new complaints. She remains on IV heparin. CAT scan of the abdomen was also done and the patient was found to have a large anterior abdominal wall subcutaneous fluid collection and this is probably a seroma following her hernia repair. No evidence of any abscess. No evidence of any acute intra-abdominal process. Atelectatic changes seen left lung base and the patient has cardiomegaly. Meanwhile, hemoglobin is at 7.7 which is improved compared to yesterday. Platelet count of 281.Because of 8.1. She remains on IV heparin. BUN is at 12 with a creatinine of 0.5 and sodium levels at 139. The patient was also seen by general surgery. There are plans to continue monitoring the patient and perform an EGD and colonoscopy for Mo nday. She is on IV iron for now. The patient is also on IV Protonix. No evidence of any GI bleeding at this point in time. On today's evaluation of 12/23/2023, the patient is being seen for a follow-up. Patient is doing well with no specific complaints. No respiratory distress. No chest pain. Hemoglobin stable at 8.0. She remains on IV heparin. The patient is going to undergo an EGD tomorrow to evaluate for any upper GI source of bleeding. Otherwise, she has no specific complaints. She is currently on 2 L of oxygen by nasal cannula with a pulse ox of 96%. [facility] for GI bleed is recommended. A consultation was also placed for interventional radiology for placement of a drain regarding the large abdominal wall seroma. Patient was evaluated today on 12/24/2023, patient seems to be doing well, does not seem to be in any distress, she had a catheter placed in her abdominal wall seroma by interventional radiology, and she has some serosanguineous drainage noted in the collecting bag. Patient denies any cough wheezing or shortness of breath, does not seem to be in any pulmonary discomfort.Remains on 4 L nasal cannula and O2 sats is 97%. Dinora on IV heparin, patient underwent EGD today, and she was found to have Linder's esophagus and diaphragmatic hiatal hernia WBC count today 6.6 hemoglobin 7.9. Platelets are 2 64,000 Objective - Vital Signs Vital signs: Vital Signs Temp 98.8 F 12/24/23 12:30 Pulse 79 12/24/23 13:13 Resp 18 12/24/23 14:00 BP 103/69 12/24/23 13:13 Pulse Ox 97 12/24/23 13:13 FiO2 Intake & Output 12/23/23 12/24/23 12/24/23 18:59 06:59 18:59 Intake Total 870 168.1 200 Output Total 2300 Balance 870 168.1 -2100 Weight 114.1 kg Intake: IV 100 Intake, IV Titration 250 168.1 100 Amount Heparin Sod,Pork in 0.45% 250 168.1 NaCl 25,000 unit In 0.45 % NaCl 1 250ml.bag @ 18 UNITS/KG/HR 20.82 mls/hr IV .Q12H1M [facility] Rx#: [id number] Sodium Ferric Gluconat- 100 Sucrose 125 mg In Sodium Chloride 0.9% 100 ml @ 100 mls/hr IVPB DAILY [facility] Rx#:[id number] Oral 620 Output: Drainage 2300 Abdomen 2300 Other: Voiding Method Toilet Toilet Toilet # Voids 2 3 - Exam General: Reveals a 58-year-old female in no distress Skin: No rashes Head: atraumatic, normocephalic, symmetric Eyes: EOMI, no lid lag, anicteric sclera, pupils equal round reactive to light ENT: Nose and ears atraumatic Neck: No thyromegaly, supple Mouth: no lip lesion, mucus membranes moist Cardiovascular: Distant S1-S2, no S3 gallop. Lungs: Symmetrical chest expansion, diminished breath sounds at the bases no rhonchi no wheezes Abdominal: Morbidly obese soft nontender, drainage tube noted in the right lower quadrant area. And seems to be collecting serosanguineous drainage from Ext: No clubbing edema or cyanosis s Neuro: CN II-XII grossly intact Psych: Normal mood affect and normal mental status examination - Labs CBC & Chem 7: 12/24/23 06:12 12/23/23 08:34 Labs: Abnormal Lab Results - Last 24 Hours (Table) 12/23/23 12/23/23 12/24/23 Range/Units 16:09 20:04 06:02 RBC (3.80-5.40) m/uL Hgb (11.4-16.0) gm/dL Hct (34.0-46.0) % MCV (80.0-100.0) fL MCH (25.0-35.0) pg MCHC (31.0-37.0) g/dL RDW (11.5-15.5) % Lymphocytes # (1.0-4.8) k/uL POC Glucose (mg/dL) 156 H 144 H 174 H (70-110) mg/dL 12/24/23 12/24/23 Range/Units 06:12 11:26 RBC 3.61 L (3.80-5.40) m/uL Hgb 7.9 L (11.4-16.0) gm/dL Hct 26.7 L (34.0-46.0) % MCV 74.0 L (80.0-100.0) fL MCH 22.0 L (25.0-35.0) pg MCHC 29.7 L (31.0-37.0) g/dL RDW 17.5 H (11.5-15.5) % Lymphocytes # 0.5 L (1.0-4.8) k/uL POC Glucose (mg/dL) 169 H (70-110) mg/dL Assessment and Plan Assessment: Impression: Acute pulmonary embolism with no evidence of RV strain. And no evidence of pulmonary hypertension Left basilar atelectasis Abdominal wall seroma requiring drainage by interventional radiology History of mild intermittent asthma Type 2 diabetes Morbid obesity Recent repair of ventral abdominal wall hernia and the patient developed abdomin al seroma Linder esophagus Microcytic anemia secondary to above Hypothyroidism Benign essential hypertension History of depression Recommendation: Titrate oxygen accordingly Continue IV heparin Consider transitioning to oral anticoagulation therapy in the next 24 hours Continue abdominal wall drainage catheter for now Incentive spirometry Continue to monitor hemoglobin EGD report was noted Will continue to follow. Time with Patient: Less than 30
[2023-12-24 16:24] LABS: Glucose,Whole Blood 176 mg/dL (70-110)
[2023-12-24 20:19] LABS: Glucose,Whole Blood 202 mg/dL (70-110)
[2023-12-25 05:49] LABS: Glucose,Whole Blood 160 mg/dL (70-110)
[2023-12-25] MEDS: Apixaban Initiation Dose--VTE 5 MG TAB PO SCH (08:29)
[2023-12-25 10:57] VITALS: BMI 41.8
[2023-12-25 11:21] LABS: Glucose,Whole Blood 153 mg/dL (70-110)
--- NOTE | 2023-12-25 12:28 | P.PN ---
Subjective Progress Note Date: 12/25/23 CHIEF COMPLAINT: Anemia HISTORY OF PRESENT ILLNESS: Patient status post EGD revealing a diaphragmatic hiatal hernia and Linder's esophagus. Patient status post IR drainage of abdominal seroma. Patient reports she is feeling better. She has less abdominal discomfort. Denies any nausea or vomiting. Tolerated diet. Afebrile. Patient has been transitioned to Eliquis for her PE. PHYSICAL EXAM: VITAL SIGNS: Reviewed GENERAL: Well-developed in no acute distress. HEENT: No sclera icterus. Extraocular movements grossly intact. Moist buccal mucosa. Head is atraumatic, normocephalic. Hears conversational speech. No nasal drainage. NECK: Supple without lymphadenopathy. CHEST: Non-labored respirations and equal bilateral excursions. CARDIOVASCULAR: Palpable 2+ radial pulses. ABDOMEN: Soft. Nondistended. MUSCULOSKELETAL: No clubbing or cyanosis. NEUROLOGIC: No focal or lateralizing signs. Cranial nerves II through XII grossly intact. PSYCH: Appropriate affect. Alert and oriented to person, place and time. SKIN: Well perfused. Good skin turgor. ASSESSMENT: 1. Anemia with melanotic stools prior to admission status post EGD revealing diaphragmatic hiatal hernia and Linder's esophagus 2. New PE 3. Abdominal seroma status post drainage by IR service PLAN: -Abdominal binder ordered -Continue Protonix for Linder's esophagus -Recommend repeat upper endoscopy with biopsies for Linder's esophagus after appropriate treatment Physician Resident Hall Director note has been reviewed by physician. Signing provider agrees with the documented findings, assessment, and plan of care. Objective - Vital Signs Vital signs: Vital Signs Temp 98.4 F 12/25/23 08:00 Pulse 75 12/25/23 08:00 Resp 16 12/25/23 08:00 BP 130/71 12/25/23 08:00 Pulse Ox 97 12/25/23 08:00 FiO2 Intake & Output 12/24/23 12/25/23 12/25/23 18:59 06:59 18:59 Intake Total 380 0 610 Output Total 2550 75 Balance -2170 -75 610 Weight 110.7 kg 110.7 kg Intake: IV 100 Intake, IV Titration 100 0 250 Amount Heparin Sod,Pork in 0.45% 0 250 NaCl 25,000 unit In 0.45 % NaCl 1 250ml.bag @ 18 UNITS/KG/HR 20.82 mls/hr IV .Q12H1M [facility] Rx#: [id number] Sodium Ferric Gluconat- 100 Sucrose 125 mg In Sodium Chloride 0.9% 100 ml @ 100 mls/hr IVPB DAILY [facility] Rx#:[id number] Oral 180 360 Output: Drainage 2550 75 Abdomen 2550 75 Other: Voiding Method Toilet Toilet Toilet # Voids 2 # Bowel Movements 1 - Labs CBC & Chem 7: 12/24/23 06:12 12/23/23 08:34 Labs: Abnormal Lab Results - Last 24 Hours (Table) 12/24/23 12/24/23 12/25/23 Range/Units 16:23 20:17 02:28 APTT 46.2 H (22.0-30.0) sec POC Glucose (mg/dL) 176 H 202 H (70-110) mg/dL 12/25/23 12/25/23 Range/Units 05:48 11:19 APTT (22.0-30.0) sec POC Glucose (mg/dL) 160 H 153 H (70-110) mg/dL
--- NOTE | 2023-12-25 13:32 | P.PN ---
Subjective Progress Note Date: 12/25/23 Hospital course: Patient is a very pleasant 58-year-old female with a past medical history of hypertension, diabetes, hypothyroidism, depression and reactive airway disease. She presented to the emergency department on 12/20/2023 with a chief complaint of shortness of breath. Upon arrival to our facility patient underwent evaluation. Vital signs revealed blood pressure 144/61, heart rate 92, respiratory rate 22, temp 98.2 F, and SpO2 of 93% on room air. EKG was completed showing normal sinus rhythm at 84 bpm with no significant T wave or ST abnormalities showing no signs of acute ischemia upon personal review and interpretation. Chest x-ray completed showing cardiomegaly with elevation of the left diaphragm. Labs were completed and reviewed. CBC showing microcytic anemia with hemoglobin of 8.3 BMP showing mild prerenal azotemia with BUN of 24. Liver profile unremarkable. Troponin negative at less than 0.012. proBNP 116. CRP was elevated at 5.7. D- dimer also elevated at 3.17. CTA chest was completed showing small right middle and lower lobe pulmonary emboli. Bilateral lower extremity Dopplers were completed negative for DVTs. Patient was started on anticoagulation and admitted under our services with consultation to pulmonology. Echocardiogram was completed showing a preserved EF of 60 to 65% and no signs of significant pulmonary hypertension or evidence of right heart strain. Iron profile showing iron of 20, TIBC of 314, iron percent saturation of 6.37, transferrin of 225, and ferritin of 73.5. Urinalysis positive for protein and ketones negative for blood or infection. On 12/21/2023 hemoglobin dropping to 7.3 and general surgery was consulted for evaluation to rule out GI bleed. CT abdomen and pelvis was completed revealing a large anterior abdominal wall subcutaneous fluid collection measuring 29 x 14 x 20 cm concerning for postoperative seroma from recent hernia repair otherwise negative for acute cardiopulmonary process. Patient was evaluated by general surgery and was taken EGD and colonoscopy on 12/24/2023 and IR took patient for drainage of seroma on 12/24/2023.. Physical exam: Patient seen and fully evaluated at bedside this morning. She was resting in bed, denies having any pain or complaints at this time. She continues to have mild shortness of breath and remains hypoxic on room air with SpO2 decreasing to 86%. Vital signs reviewed and stable. General: Nontoxic, no distress and appears stated age. Derm: Skin warm and dry, normal coloration for ethnicity. Head: Atraumatic, normocephalic and symmetric. Eyes: EOMs intact, no lid lag, and anicteric sclera Mouth: no lip lesions, mucus membranes moist Cardiovascular: regular rate and rhythm with normal S1S2, no murmur, positive posterior tibial pulses bilaterally, and cap refill < 2 seconds. Lungs: Respirations even, regular, and unlabored. Lungs diminished, no rhonchi, no rales, no wheezing, and no accessory muscle usage. Abdominal: soft distended, nontender to palpation, no guarding, no appreciable organomegaly Ext: ROM intact. No gross muscle atrophy, no edema, no contractures Neuro: Speech clear, face symmetrical and CN II-XII grossly intact with no noted focal neuro deficits Psych: Alert and oriented to person, place, time, and situation. Appropriate and pleasant affect. Assessment and Plan of Care: Nonmassive pulmonary embolism, likely acute, likely provoked from recent hernia repair Dyspnea History of asthma -Discontinued heparin drip and started patient on transition to Eliquis 10 mg twice daily -Pulmonology following -Continue albuterol as needed. -Patient remains hypoxic with SpO2 86% on room air at rest, -Continue with supplemental oxygen. Iron deficiency anemia Suspected acute GI bleed Postoperative large anterior abdominal wall seroma -Patient received 5 days of IV iron with Ferrlecit and to be started on oral i ginny supplementation with ferrous sulfate 325 mg daily beginning tomorrow. -Patient has a history of polyps, last colonoscopy 5 years ago. -General surgery following, took patient for EGD and colonoscopy on 12/24/2023. -Continue IV Protonix 40 twice daily -IR drained seroma on 12/24/2023. -Hemoglobin stable at 7.9 Type 2 diabetes with hemoglobin A1c of 6.8% -Hold Glucophage and continue glycemic protocol with NovoLog sliding scale insulin, monitor for hypoglycemia Popliteal cyst -Outpatient follow-up Hypothyroidism -Continue levothyroxine 176 mcg daily. Depression -Continue Zoloft 100 mg daily. Data and imaging reviewed: Vital signs reviewed and stable with blood pressure 130/71, heart rate 75, respiratory rate 16, temp 98.4 F, and SpO2 of 97% on 4 L. Patient continues to be hypoxic on room air at rest 86%. Labs reviewed. PTT therapeutic at 46.2. Patient being transition from heparin infusion to oral anticoagulation with Eliquis. Blood glucose 153. CODE STATUS: Full code DVT prophylaxis: Heparin Anticipated discharge date: Clinical course to determine Anticipated discharge place: Home Patient was seen independently by Nurse Pracitioner. This document was prepared using [employer] dictation software. Please allow for errors in medical staff director, while rare they do occur. Freddie Valladares GRAIN ELEVATOR CLERK rendered care for this patient independently, reviewed the findings and plan as documented in the note above. I did not physically speak with or examine the patient on this date. Objective - Vital Signs Vital signs: Vital Signs Temp 97.5 F L 12/25/23 04:00 Pulse 69 12/25/23 04:00 Resp 18 12/25/23 04:00 BP 109/72 12/25/23 04:00 Pulse Ox 98 12/25/23 04:00 FiO2 Intake & Output 12/24/23 12/25/23 12/25/23 18:59 06:59 18:59 Intake Total 380 0 Output Total 2550 75 Balance -2170 -75 Weight 110.7 kg Intake: IV 100 Intake, IV Titration 100 0 Amount Heparin Sod,Pork in 0.45% 0 NaCl 25,000 unit In 0.45 % NaCl 1 250ml.bag @ 18 UNITS/KG/HR 20.82 mls/hr IV .Q12H1M [facility] Rx#: [id number] Sodium Ferric Gluconat- 100 Sucrose 125 mg In Sodium Chloride 0.9% 100 ml @ 100 mls/hr IVPB DAILY [facility] Rx#:[id number] Oral 180 Output: Drainage 2550 75 Abdomen 2550 75 Other: Voiding Method Toilet Toilet # Voids 2 # Bowel Movements 1 - Labs CBC & Chem 7: 12/24/23 06:12 12/23/23 08:34 Labs: Abnormal Lab Results - Last 24 Hours (Table) 12/24/23 12/24/23 12/24/23 Range/Units 11:26 16:23 20:17 APTT (22.0-30.0) sec POC Glucose (mg/dL) 169 H 176 H 202 H (70-110) mg/dL 12/25/23 12/25/23 Range/Units 02:28 05:48 APTT 46.2 H (22.0-30.0) sec POC Glucose (mg/dL) 160 H (70-110) mg/dL
--- NOTE | 2023-12-25 13:57 | P.PN ---
Subjective Progress Note Date: 12/25/23 Principal diagnosis: Acute pulmonary embolism and abdominal wall seroma This is a 57-year-old female patient is coming into the hospital because of worsening shortness of breath. Patient is morbidly obese. The patient has been experiencing shortness of breath for the past 2 to 3 weeks. Noted approximately 2 months ago, the patient had a repair of a large anterior abdominal wall hernia that was done at [facility]. Her course was uncomplicated. No previous history of DVT or pulmonary embolism. She reports some exertional dyspnea. No pleurisy. No hemoptysis. No chest pain. She has diabetes and hypertension hypothyroidism as comorbid conditions. No history of any malignancy. She came into the emergency room the patient's hemodynamics were essentially stable. As part of her routine blood work, the patient was given a D-dimer that was elevated at 3.1 and the rest of the coagulation profile within normal limits. Electrolytes are unremarkable. Renal function showed a creatinine of 0.7. LFTs were normal. Occult blood in the stool was negative. The patient was having some microcytic anemia with a hemoglobin of 8.3 and an MCV of 72 with a white cell count of 10.1 and a platelet count of 304. Initial chest x-ray showed no acute abnormalities and there was some elevation of left hemidiaphragm and cardiomegaly. CT angiogram of the chest showed a questionable filling defect in the right lower lobe pulmonary artery branch. No mediastinal lymphadenopathy. Some elevation of left hemidiaphragm and left basilar atelectatic changes were noted. Based on that, the patient was started on IV heparin. Doppler of the lower extremity showed no evidence of any DVTs. There was a cyst in the popliteal area measuring 5 cm in size in the right lower extremity. Currently on 2 L of oxygen by nasal cannula. No significant tachycardia. Has trace edema lower extremities bilaterally. UA is showing for WBCs, 7 RBCs, few bacteria. Negative for leukocyte esterase. Few oxalate stones. Troponin was negative. Lactic acid level was 0.9. proBNP level was 116. On 12/21/2023, seen the patient for a follow-up. The patient is hospitalized for worsening shortness of breath, the patient is suspected to have a pulmonary embolism. There was a questionable filling defect in the right lower lobe pulmonary artery branch and based on that the patient was started on anticoagulants. Echocardiogram was completed and the patient has normal RV, no pulm hypertension, normal LV, left-ventricular ejection fraction is essentially within normal limits in the order of 60 to 65%. Doppler lower extremity was also negative. The white cell count is 7.5 with hemoglobin 7.3 and platelet count of 275. BUN is 18 with a creatinine of 0.49. The patient is currently on 2 L of oxygen by nasal cannula with a pulse ox of 96 to 97%. No other significant events overnight. The patient remains on IV heparin for now. colonoscopy 5 years ago and the patient was found to have colonic polyps. On today's evaluation of 12/22/2023, the patient is being seen for a follow-up. The patient is essentially doing well. No new complaints. She remains on IV heparin. CAT scan of the abdomen was also done and the patient was found to have a large anterior abdominal wall subcutaneous fluid collection and this is probably a seroma following her hernia repair. No evidence of any abscess. No evidence of any acute intra-abdominal process. Atelectatic changes seen left lung base and the patient has cardiomegaly. Meanwhile, hemoglobin is at 7.7 which is improved compared to yesterday. Platelet count of 281.Because of 8.1. She remains on IV heparin. BUN is at 12 with a creatinine of 0.5 and sodium levels at 139. The patient was also seen by general surgery. There are plans to continue monitoring the patient and perform an EGD and colonoscopy for Mo nday. She is on IV iron for now. The patient is also on IV Protonix. No evidence of any GI bleeding at this point in time. On today's evaluation of 12/23/2023, the patient is being seen for a follow-up. Patient is doing well with no specific complaints. No respiratory distress. No chest pain. Hemoglobin stable at 8.0. She remains on IV heparin. The patient is going to undergo an EGD tomorrow to evaluate for any upper GI source of bleeding. Otherwise, she has no specific complaints. She is currently on 2 L of oxygen by nasal cannula with a pulse ox of 96%. [facility] for GI bleed is recommended. A consultation was also placed for interventional radiology for placement of a drain regarding the large abdominal wall seroma. Patient was evaluated today on 12/24/2023, patient seems to be doing well, does not seem to be in any distress, she had a catheter placed in her abdominal wall seroma by interventional radiology, and she has some serosanguineous drainage noted in the collecting bag. Patient denies any cough wheezing or shortness of breath, does not seem to be in any pulmonary discomfort.Remains on 4 L nasal cannula and O2 sats is 97%. Dinora on IV heparin, patient underwent EGD today, and she was found to have Linder's esophagus and diaphragmatic hiatal hernia WBC count today 6.6 hemoglobin 7.9. Platelets are 2 64,000 Reevaluate today on 12/25/2023, patient seems to be doing well, not in any distress, denies shortness of breath cough or wheezing, O2 saturation on room air was 86% but 97% on 4 L nasal cannula. Patient is resting in bed, and asymptomatic. Continues to have that abdominal wall drainage tube, and is draining serosanguineous material. Patient remains on heparin, I believe the patient could be transition to Eliquis once her drainage tube has been removed. Minimal amount of drainage overnight. WBC count is 6.6 hemoglobin is 7.9 PTT 46.2 Objective - Vital Signs Vital signs: Vital Signs Temp 98.4 F 12/25/23 08:00 Pulse 80 12/25/23 12:00 Resp 16 12/25/23 12:00 BP 137/77 12/25/23 12:00 Pulse Ox 86 L 12/25/23 12:00 FiO2 Intake & Output 12/24/23 12/25/23 12/25/23 18:59 06:59 18:59 Intake Total 380 0 610 Output Total 2550 75 Balance -2170 -75 610 Weight 110.7 kg 110.7 kg Intake: IV 100 Intake, IV Titration 100 0 250 Amount Heparin Sod,Pork in 0.45% 0 250 NaCl 25,000 unit In 0.45 % NaCl 1 250ml.bag @ 18 UNITS/KG/HR 20.82 mls/hr IV .Q12H1M [facility] Rx#: [id number] Sodium Ferric Gluconat- 100 Sucrose 125 mg In Sodium Chloride 0.9% 100 ml @ 100 mls/hr IVPB DAILY [facility] Rx#:[id number] Oral 180 360 Output: Drainage 2550 75 Abdomen 2550 75 Other: Voiding Method Toilet Toilet Toilet # Voids 2 # Bowel Movements 1 - Exam General: Reveals a 58-year-old female in no distress, on 4 L nasal cannula Skin: No rashes Head: atraumatic, normocephalic, symmetric Eyes: EOMI, no lid lag, anicteric sclera, pupils equal round reactive to light ENT: Nose and ears atraumatic Neck: No thyromegaly, supple Mouth: no lip lesion, mucus membranes moist Cardiovascular: Distant S1-S2, no S3 gallop. Lungs: Symmetrical chest expansion, diminished breath sounds at the bases no rhonchi no wheezes Abdominal: Morbidly obese soft nontender, drainage tube noted in the right lower quadrant area. And seems to be collecting serosanguineous drainage from Ext: No clubbing edema or cyanosis Neuro: CN II-XII grossly intact Psych: Normal mood affect and normal mental status examination - Labs CBC & Chem 7: 12/24/23 06:12 12/23/23 08:34 Labs: Abnormal Lab Results - Last 24 Hours (Table) 12/24/23 12/24/23 12/25/23 Range/Units 16:23 20:17 02:28 APTT 46.2 H (22.0-30.0) sec POC Glucose (mg/dL) 176 H 202 H (70-110) mg/dL 12/25/23 12/25/23 Range/Units 05:48 11:19 APTT (22.0-30.0) sec POC Glucose (mg/dL) 160 H 153 H (70-110) mg/dL Assessment and Plan Assessment: Impression: Acute pulmonary embolism with no evidence of RV strain. Left basilar atelectasis Abdominal wall seroma requiring drainage by interventional radiology History of mild intermittent asthma Type 2 diabetes Morbid obesity Recent repair of ventral abdominal wall hernia and the patient developed abdominal seroma Linder esophagus Microcytic anemia secondary to above Hypothyroidism Benign essential hypertension History of depression Recommendation: Titrate oxygen accordingly Continue IV heparin transition to oral anticoagulation therapy in the next 24 to 48 hours Continue abdominal wall drainage catheter for now Incentive spirometry Continue to monitor hemoglobin Will continue to follow. Time with Patient: Less than 30
[2023-12-25 16:43] LABS: Glucose,Whole Blood 271 mg/dL (70-110)
[2023-12-25 20:16] LABS: Glucose,Whole Blood 177 mg/dL (70-110)
[2023-12-26 06:06] LABS: Glucose,Whole Blood 171 mg/dL (70-110)
[2023-12-26] MEDS: FERROUS SULFATE 325 MG TAB PO SCH (08:44)
[2023-12-26 11:33] LABS: Glucose,Whole Blood 176 mg/dL (70-110)
[2023-12-26 11:35] LABS: Anisocytosis Slight; HCT 29.2 % (34.0-46.0); Hypochromasia Marked; MCH 20.5 pg (25.0-35.0); MCHC 27.3 g/dL (31.0-37.0); Microcytosis Slight; Platelet Count 276 k/uL (150-450); Poikilocytosis Slight; RBC 3.89 m/uL (3.80-5.40); RDW 17.6 % (11.5-15.5); WBC 5.9 k/uL (3.8-10.6)
[2023-12-26 11:48] LABS: ALT 20 U/L (4-34); AST 23 U/L (14-36); African American GFR (CKD) >90 (>60 ml/min/1.73 sqM); Albumin 3.2 g/dL (3.5-5.0); Alkaline Phosphatase 67 U/L (38-126); Anion Gap 6 mmol/L; Blood Urea Nitrogen 11 mg/dL (7-17); Calcium 8.8 mg/dL (8.4-10.2); Carbon Dioxide 35 mmol/L (22-30); Chloride 98 mmol/L (98-107); Glucose 193 mg/dL (74-99); Non-African American GFR(CKD) >90 (>60 ml/min/1.73 sqM); Potassium 3.5 mmol/L (3.5-5.1); Sodium 139 mmol/L (137-145); Total Bilirubin 0.3 mg/dL (0.2-1.3); Total Protein 6.1 g/dL (6.3-8.2)
--- NOTE | 2023-12-26 13:38 | P.PN ---
Subjective Progress Note Date: 12/26/23 CHIEF COMPLAINT: Anemia HISTORY OF PRESENT ILLNESS: Patient status post EGD revealing a diaphragmatic hiatal hernia and Linder's esophagus. Patient status post IR drainage of abdominal seroma. Patient reports she is feeling better. She has less abdominal discomfort. Denies any nausea or vomiting. Drain with 75 mL serosanguineous output. tolerated diet. Afebrile. Patient has been transitioned to Eliquis for her PE. HGB stable at 8.0 PHYSICAL EXAM: VITAL SIGNS: Reviewed GENERAL: Well-developed in no acute distress. HEENT: No sclera icterus. Extraocular movements grossly intact. Moist buccal mucosa. Head is atraumatic, normocephalic. Hears conversational speech. No nasal drainage. NECK: Supple without lymphadenopathy. CHEST: Non-labored respirations and equal bilateral excursions. CARDIOVASCULAR: Palpable 2+ radial pulses. ABDOMEN: Soft. Nondistended. Abdominal binder in place MUSCULOSKELETAL: No clubbing or cyanosis. NEUROLOGIC: No focal or lateralizing signs. Cranial nerves II through XII grossly intact. PSYCH: Appropriate affect. Alert and oriented to person, place and time. SKIN: Well perfused. Good skin turgor. ASSESSMENT: 1. Anemia with melanotic stools prior to admission status post EGD revealing diaphragmatic hiatal hernia and Linder's esophagus 2. New PE 3. Abdominal seroma status post drainage by IR service PLAN: -Continue abdominal binder -Continue Protonix for Linder's esophagus -Recommend repeat upper endoscopy with biopsies for Linder's esophagus after appropriate treatment Physician Orthotic Practitioner note has been reviewed by physician. Signing provider agrees with the documented findings, assessment, and plan of care. Objective - Vital Signs Vital signs: Vital Signs Temp 97.9 F 12/26/23 03:22 Pulse 83 12/26/23 12:00 Resp 16 12/26/23 12:00 BP 108/62 12/26/23 12:00 Pulse Ox 96 12/26/23 12:00 FiO2 Intake & Output 12/25/23 12/26/23 12/26/23 18:59 06:59 18:59 Intake Total 1450 240 Output Total 275 Balance 1450 -275 240 Weight 110.7 kg 108.9 kg Intake: Intake, IV Titration 250 Amount Heparin Sod,Pork in 0.45% 250 NaCl 25,000 unit In 0.45 % NaCl 1 250ml.bag @ 18 UNITS/KG/HR 20.82 mls/hr IV .Q12H1M [facility] Rx#: [id number] Oral 1200 240 Output: Drainage 275 Abdomen 275 Other: Voiding Method Toilet Toilet Toilet # Voids 2 - Labs CBC & Chem 7: 12/26/23 10:22 12/26/23 10:22 Labs: Abnormal Lab Results - Last 24 Hours (Table) 12/25/23 12/25/23 12/26/23 Range/Units 16:42 20:15 06:03 Hgb (11.4-16.0) gm/dL Hct (34.0-46.0) % MCV (80.0-100.0) fL MCH (25.0-35.0) pg MCHC (31.0-37.0) g/dL RDW (11.5-15.5) % Carbon Dioxide (22-30) mmol/L Glucose (74-99) mg/dL POC Glucose (mg/dL) 271 H 177 H 171 H (70-110) mg/dL Total Protein (6.3-8.2) g/dL Albumin (3.5-5.0) g/dL 12/26/23 12/26/23 12/26/23 Range/Units 10:22 10:22 11:32 Hgb 8.0 L (11.4-16.0) gm/dL Hct 29.2 L (34.0-46.0) % MCV 75.0 L (80.0-100.0) fL MCH 20.5 L (25.0-35.0) pg MCHC 27.3 L (31.0-37.0) g/dL RDW 17.6 H (11.5-15.5) % Carbon Dioxide 35 H (22-30) mmol/L Glucose 193 H (74-99) mg/dL POC Glucose (mg/dL) 176 H (70-110) mg/dL Total Protein 6.1 L (6.3-8.2) g/dL Albumin 3.2 L (3.5-5.0) g/dL Microbiology - Last 24 Hours (Table) 12/24/23 12:56 Gram Stain - Preliminary Other - Other Wound Culture - Preliminary
--- NOTE | 2023-12-26 14:00 | P.PN ---
Subjective Progress Note Date: 12/26/23 Principal diagnosis: Acute pulmonary embolism and abdominal wall seroma This is a 57-year-old female patient is coming into the hospital because of worsening shortness of breath. Patient is morbidly obese. The patient has been experiencing shortness of breath for the past 2 to 3 weeks. Noted approximately 2 months ago, the patient had a repair of a large anterior abdominal wall hernia that was done at [facility]. Her course was uncomplicated. No previous history of DVT or pulmonary embolism. She reports some exertional dyspnea. No pleurisy. No hemoptysis. No chest pain. She has diabetes and hypertension hypothyroidism as comorbid conditions. No history of any malignancy. She came into the emergency room the patient's hemodynamics were essentially stable. As part of her routine blood work, the patient was given a D-dimer that was elevated at 3.1 and the rest of the coagulation profile within normal limits. Electrolytes are unremarkable. Renal function showed a creatinine of 0.7. LFTs were normal. Occult blood in the stool was negative. The patient was having some microcytic anemia with a hemoglobin of 8.3 and an MCV of 72 with a white cell count of 10.1 and a platelet count of 304. Initial chest x-ray showed no acute abnormalities and there was some elevation of left hemidiaphragm and cardiomegaly. CT angiogram of the chest showed a questionable filling defect in the right lower lobe pulmonary artery branch. No mediastinal lymphadenopathy. Some elevation of left hemidiaphragm and left basilar atelectatic changes were noted. Based on that, the patient was started on IV heparin. Doppler of the lower extremity showed no evidence of any DVTs. There was a cyst in the popliteal area measuring 5 cm in size in the right lower extremity. Currently on 2 L of oxygen by nasal cannula. No significant tachycardia. Has trace edema lower extremities bilaterally. UA is showing for WBCs, 7 RBCs, few bacteria. Negative for leukocyte esterase. Few oxalate stones. Troponin was negative. Lactic acid level was 0.9. proBNP level was 116. On 12/21/2023, seen the patient for a follow-up. The patient is hospitalized for worsening shortness of breath, the patient is suspected to have a pulmonary embolism. There was a questionable filling defect in the right lower lobe pulmonary artery branch and based on that the patient was started on anticoagulants. Echocardiogram was completed and the patient has normal RV, no pulm hypertension, normal LV, left-ventricular ejection fraction is essentially within normal limits in the order of 60 to 65%. Doppler lower extremity was also negative. The white cell count is 7.5 with hemoglobin 7.3 and platelet count of 275. BUN is 18 with a creatinine of 0.49. The patient is currently on 2 L of oxygen by nasal cannula with a pulse ox of 96 to 97%. No other significant events overnight. The patient remains on IV heparin for now. colonoscopy 5 years ago and the patient was found to have colonic polyps. On today's evaluation of 12/22/2023, the patient is being seen for a follow-up. The patient is essentially doing well. No new complaints. She remains on IV heparin. CAT scan of the abdomen was also done and the patient was found to have a large anterior abdominal wall subcutaneous fluid collection and this is probably a seroma following her hernia repair. No evidence of any abscess. No evidence of any acute intra-abdominal process. Atelectatic changes seen left lung base and the patient has cardiomegaly. Meanwhile, hemoglobin is at 7.7 which is improved compared to yesterday. Platelet count of 281.Because of 8.1. She remains on IV heparin. BUN is at 12 with a creatinine of 0.5 and sodium levels at 139. The patient was also seen by general surgery. There are plans to continue monitoring the patient and perform an EGD and colonoscopy for Mo nday. She is on IV iron for now. The patient is also on IV Protonix. No evidence of any GI bleeding at this point in time. On today's evaluation of 12/23/2023, the patient is being seen for a follow-up. Patient is doing well with no specific complaints. No respiratory distress. No chest pain. Hemoglobin stable at 8.0. She remains on IV heparin. The patient is going to undergo an EGD tomorrow to evaluate for any upper GI source of bleeding. Otherwise, she has no specific complaints. She is currently on 2 L of oxygen by nasal cannula with a pulse ox of 96%. [facility] for GI bleed is recommended. A consultation was also placed for interventional radiology for placement of a drain regarding the large abdominal wall seroma. Patient was evaluated today on 12/24/2023, patient seems to be doing well, does not seem to be in any distress, she had a catheter placed in her abdominal wall seroma by interventional radiology, and she has some serosanguineous drainage noted in the collecting bag. Patient denies any cough wheezing or shortness of breath, does not seem to be in any pulmonary discomfort.Remains on 4 L nasal cannula and O2 sats is 97%. Dinora on IV heparin, patient underwent EGD today, and she was found to have Linder's esophagus and diaphragmatic hiatal hernia WBC count today 6.6 hemoglobin 7.9. Platelets are 2 64,000 Reevaluate today on 12/25/2023, patient seems to be doing well, not in any distress, denies shortness of breath cough or wheezing, O2 saturation on room air was 86% but 97% on 4 L nasal cannula. Patient is resting in bed, and asymptomatic. Continues to have that abdominal wall drainage tube, and is draining serosanguineous material. Patient remains on heparin, I believe the patient could be transition to Eliquis once her drainage tube has been removed. Minimal amount of drainage overnight. WBC count is 6.6 hemoglobin is 7.9 PTT 46.2 Reevaluate today on 12/26/2023, patient continues to do well, she was transitioned from heparin to Eliquis for her pulmonary embolism. Continues to have some minimal drainage in her abdominal wall drainage bag, patient is relatively asymptomatic, denies any cough wheezing or shortness of breath, reviewed the note from general surgery, planning to have repeat EGD and biopsies of Linder's esophagus. In the meantime the patient has no specific complaints, she is on Eliquis and tolerating Eliquis very well. Hemoglobin is 8, has been holding anywhere between 7.7 up to 8.3. Basic metabolic profile is normal bicarb is 35 BUN is 11 creatinine 0.61 Objective - Vital Signs Vital signs: Vital Signs Temp 97.9 F 12/26/23 03:22 Pulse 83 12/26/23 12:00 Resp 16 12/26/23 12:00 BP 108/62 12/26/23 12:00 Pulse Ox 96 12/26/23 12:00 FiO2 Intake & Output 12/25/23 12/26/23 12/26/23 18:59 06:59 18:59 Intake Total 1450 240 Output Total 275 Balance 1450 -275 240 Weight 110.7 kg 108.9 kg Intake: Intake, IV Titration 250 Amount Heparin Sod,Pork in 0.45% 250 NaCl 25,000 unit In 0.45 % NaCl 1 250ml.bag @ 18 UNITS/KG/HR 20.82 mls/hr IV .Q12H1M [facility] Rx#: [id number] Oral 1200 240 Output: Drainage 275 Abdomen 275 Other: Voiding Method Toilet Toilet Toilet # Voids 2 - Exam General: Reveals a 58-year-old female in no distress, on 2 L nasal cannula with O2 sats of 96%, hemodynamically patient is stable blood pressure is 108/62 Skin: No rashes Head: atraumatic, normocephalic, symmetric Eyes: EOMI, no lid lag, anicteric sclera, pupils equal round reactive to light ENT: Nose and ears atraumatic Neck: No thyromegaly, supple Mouth: no lip lesion, mucus membranes moist Cardiovascular: Distant S1-S2, no S3 gallop. Lungs: Symmetrical chest expansion, diminished breath sounds at the bases no rhonchi no wheezes Abdominal: Morbidly obese soft nontender, drainage tube noted in the right lower quadrant area. And seems to be collecting serosanguineous drainage from Ext: No clubbing edema or cyanosis Neuro: CN II-XII grossly intact Psych: Normal mood affect and normal mental status examination - Labs CBC & Chem 7: 12/26/23 10:22 12/26/23 10:22 Labs: Abnormal Lab Results - Last 24 Hours (Table) 12/25/23 12/25/23 12/26/23 Range/Units 16:42 20:15 06:03 Hgb (11.4-16.0) gm/dL Hct (34.0-46.0) % MCV (80.0-100.0) fL MCH (25.0-35.0) pg MCHC (31.0-37.0) g/dL RDW (11.5-15.5) % Carbon Dioxide (22-30) mmol/L Glucose (74-99) mg/dL POC Glucose (mg/dL) 271 H 177 H 171 H (70-110) mg/dL Total Protein (6.3-8.2) g/dL Albumin (3.5-5.0) g/dL 12/26/23 12/26/23 12/26/23 Range/Units 10:22 10:22 11:32 Hgb 8.0 L (11.4-16.0) gm/dL Hct 29.2 L (34.0-46.0) % MCV 75.0 L (80.0-100.0) fL MCH 20.5 L (25.0-35.0) pg MCHC 27.3 L (31.0-37.0) g/dL RDW 17.6 H (11.5-15.5) % Carbon Dioxide 35 H (22-30) mmol/L Glucose 193 H (74-99) mg/dL POC Glucose (mg/dL) 176 H (70-110) mg/dL Total Protein 6.1 L (6.3-8.2) g/dL Albumin 3.2 L (3.5-5.0) g/dL Microbiology - Last 24 Hours (Table) 12/24/23 12:56 Gram Stain - Preliminary Other - Other Wound Culture - Preliminary Assessment and Plan Assessment: Impression: Acute pulmonary embolism with no evidence of RV strain. Left basilar atelectasis Abdominal wall seroma requiring drainage by interventional radiology History of mild intermittent asthma Type 2 diabetes Morbid obesity Recent repair of ventral abdominal wall hernia and the patient developed abdominal seroma Linder esophagus Microcytic anemia secondary to above Hypothyroidism Benign essential hypertension History of depression Recommendation: Continue to titrate oxygen and possibly discontinue if possible Continue Eliquis Continue abdominal wall drainage catheter for now, surgery to decide on the timing of removal of the abdominal wall catheter Continue incentive spirometry Continue to monitor hemoglobin Consider discharge planning once the patient is cleared by other consultants on the case, pulmonary lew the patient is to eventually get discharged on Eliquis Will continue to follow. Time with Patient: Less than 30
--- NOTE | 2023-12-26 14:12 | P.PN ---
Subjective Progress Note Date: 12/26/23 Hospital course: Patient is a very pleasant 58-year-old female with a past medical history of hypertension, diabetes, hypothyroidism, depression and reactive airway disease. She presented to the emergency department on 12/20/2023 with a chief complaint of shortness of breath. Upon arrival to our facility patient underwent evaluation. Vital signs revealed blood pressure 144/61, heart rate 92, respiratory rate 22, temp 98.2 F, and SpO2 of 93% on room air. EKG was completed showing normal sinus rhythm at 84 bpm with no significant T wave or ST abnormalities showing no signs of acute ischemia upon personal review and interpretation. Chest x-ray completed showing cardiomegaly with elevation of the left diaphragm. Labs were completed and reviewed. CBC showing microcytic anemia with hemoglobin of 8.3 BMP showing mild prerenal azotemia with BUN of 24. Liver profile unremarkable. Troponin negative at less than 0.012. proBNP 116. CRP was elevated at 5.7. D- dimer also elevated at 3.17. CTA chest was completed showing small right middle and lower lobe pulmonary emboli. Bilateral lower extremity Dopplers were completed negative for DVTs. Patient was started on anticoagulation and admitted under our services with consultation to pulmonology. Echocardiogram was completed showing a preserved EF of 60 to 65% and no signs of significant pulmonary hypertension or evidence of right heart strain. Iron profile showing iron of 20, TIBC of 314, iron percent saturation of 6.37, transferrin of 225, and ferritin of 73.5. Urinalysis positive for protein and ketones negative for blood or infection. On 12/21/2023 hemoglobin dropping to 7.3 and general surgery was consulted for evaluation to rule out GI bleed. CT abdomen and pelvis was completed revealing a large anterior abdominal wall subcutaneous fluid collection measuring 29 x 14 x 20 cm concerning for postoperative seroma from recent hernia repair otherwise negative for acute cardiopulmonary process. Patient was evaluated by general surgery and was taken EGD and colonoscopy on 12/24/2023 and IR took patient for drainage of seroma on 12/24/2023.. Physical exam: Patient seen and fully evaluated at bedside this morning. She was resting in bed, continues to report feeling tired and weak. Patient just completed working with physical therapy, they are recommending subacute rehab placement for upon discharge. Case management working on insurance authorization, patient updated on plan of care. She continues to deny having any pain or additional complaints at this time. Vital signs reviewed and stable. General: Nontoxic, no distress and appears stated age. Derm: Skin warm and dry, normal coloration for ethnicity. Head: Atraumatic, normocephalic and symmetric. Eyes: EOMs intact, no lid lag, and anicteric sclera Mouth: no lip lesions, mucus membranes moist Cardiovascular: regular rate and rhythm with normal S1S2, no murmur, positive posterior tibial pulses bilaterally, and cap refill < 2 seconds. Lungs: Respirations even, regular, and unlabored. Lungs diminished, no rhonchi, no rales, no wheezing, and no accessory muscle usage. Abdominal: soft distended, nontender to palpation, no guarding, no appreciable organomegaly Ext: ROM intact. No gross muscle atrophy, no edema, no contractures Neuro: Speech clear, face symmetrical and CN II-XII grossly intact with no noted focal neuro deficits Psych: Alert and oriented to person, place, time, and situation. Appropriate and pleasant affect. Assessment and Plan of Care: Nonmassive pulmonary embolism, likely acute, likely provoked from recent hernia repair Dyspnea History of asthma -Discontinued heparin drip and started patient on transition to Eliquis 10 mg twice daily on 12/25/2023 -Pulmonology following, reviewed documentation in chart -Continue albuterol as needed. -Patient remains hypoxic with SpO2 86% on room air at rest, remains on supplemental oxygen. We will continue with oxygen supplementation and wean as patient tolerates. Iron deficiency anemia Suspected acute GI bleed Postoperative large anterior abdominal wall seroma -Patient received 5 days of IV iron with Ferrlecit and was started on oral iron supplementation with ferrous sulfate 325 mg this morning -Patient has a history of polyps, last colonoscopy 5 years ago. -General surgery following, took patient for EGD and colonoscopy on 12/24/2023. -Continue IV Protonix 40 twice daily -IR drained seroma on 12/24/2023. -Hemoglobin stable at 8.0. Type 2 diabetes with hemoglobin A1c of 6.8% -Hold Glucophage and continue glycemic protocol with NovoLog sliding scale insulin, monitor for hypoglycemia Popliteal cyst -Outpatient follow-up Hypothyroidism -Continue levothyroxine 176 mcg daily. Depression -Continue Zoloft 100 mg daily. Data and imaging reviewed: Vital signs reviewed and stable with blood pressure 122/67, heart rate 89, respiratory rate 16, Labs reviewed. CBC showing stable microcytic anemia with hemoglobin of 8.0. BMP revealing mild hypercarbia with bicarb of 35 and elevated glucose of 193 otherwise normal findings. CODE STATUS: Full code DVT prophylaxis: Heparin Anticipated discharge date: Pending insurance authorization for SNF Anticipated discharge place: shelter facility Patient was seen independently by Nurse Pracitioner. This document was prepared using [employer] dictation software. Please allow for errors in arabic linguist, while rare they do occur. I reviewed the documentation as provided by the JACKSON above, who is the original author of this note. I agree with the documented assessment and plan, with the following changes: none Objective - Vital Signs Vital signs: Vital Signs Temp 97.9 F 12/26/23 03:22 Pulse 76 12/26/23 03:22 Resp 18 12/26/23 03:22 BP 107/63 12/26/23 03:22 Pulse Ox 96 12/26/23 03:22 FiO2 Intake & Output 12/25/23 12/26/23 12/26/23 18:59 06:59 18:59 Intake Total 1450 Output Total 275 Balance 1450 -275 Weight 110.7 kg 108.9 kg Intake: Intake, IV Titration 250 Amount Heparin Sod,Pork in 0.45% 250 NaCl 25,000 unit In 0.45 % NaCl 1 250ml.bag @ 18 UNITS/KG/HR 20.82 mls/hr IV .Q12H1M [facility] Rx#: [id number] Oral 1200 Output: Drainage 275 Abdomen 275 Other: Voiding Method Toilet Toilet # Voids 2 - Labs CBC & Chem 7: 12/27/23 10:07 12/27/23 10:07 Labs: Abnormal Lab Results - Last 24 Hours (Table) 12/25/23 12/25/23 12/25/23 Range/Units 11:19 16:42 20:15 POC Glucose (mg/dL) 153 H 271 H 177 H (70-110) mg/dL 12/26/23 Range/Units 06:03 POC Glucose (mg/dL) 171 H (70-110) mg/dL Microbiology - Last 24 Hours (Table) 12/24/23 12:56 Gram Stain - Preliminary Other - Other Wound Culture - Preliminary
[2023-12-26 16:39] LABS: Glucose,Whole Blood 181 mg/dL (70-110)
[2023-12-26 20:21] LABS: Glucose,Whole Blood 264 mg/dL (70-110)
[2023-12-27 06:17] LABS: Glucose,Whole Blood 172 mg/dL (70-110)
[2023-12-27 09:14] VITALS: BP 113/75; PULSE 83; RESP 14; TEMP 98.2
--- NOTE | 2023-12-27 10:07 | P.DS ---
Providers Date of admission: 12/20/23 16:04 Expected date of discharge: 12/27/23 Attending physician: Abrahan Posey MD Consults: 12/20/23 15:20 Consult Physician Urgent Consulting Provider: Vito Oropeza Consult Reason/Comments: Pulmonary emboli Do you want consulting provider notified?: Yes 12/21/23 10:15 Consult Physician Routine Consulting Provider: Tina Lerner Consult Reason/Comments: Fe deficiency enemia, new PE, polyp in the past, might need colonoscopy Do you want consulting provider notified?: Yes Primary care physician: [facility] Course: Nonmassive pulmonary embolism, likely acute, likely provoked from recent hernia repair Dyspnea History of asthma Iron deficiency anemia Postoperative large anterior abdominal wall seroma Type 2 diabetes with hemoglobin A1c of 6.8% Popliteal cyst Hypothyroidism Depression Hospital course: Patient is a very pleasant 58-year-old female with a past medical history of hypertension, diabetes, hypothyroidism, depression and reactive airway disease. She presented to the emergency department on 12/20/2023 with a chief complaint of shortness of breath. Upon arrival to our facility patient underwent evaluation. Vital signs revealed blood pressure 144/61, heart rate 92, respiratory rate 22, temp 98.2 F, and SpO2 of 93% on room air. EKG was completed showing normal sinus rhythm at 84 bpm with no significant T wave or ST abnormalities showing no signs of acute ischemia upon personal review and interpretation. Chest x-ray completed showing cardiomegaly with elevation of the left diaphragm. Labs were completed and reviewed. CBC showing microcytic anemia with hemoglobin of 8.3 BMP showing mild prerenal azotemia with BUN of 24. Liver profile unremarkable. Troponin negative at less than 0.012. proBNP 116. CRP was elevated at 5.7. D- dimer also elevated at 3.17. CTA chest was completed showing small right middle and lower lobe pulmonary emboli. Bilateral lower extremity Dopplers were completed negative for DVTs. Patient was started on anticoagulation and admitted under our services with consultation to pulmonology. Echocardiogram was completed showing a preserved EF of 60 to 65% and no signs of significant pulmonary hypertension or evidence of right heart strain. Iron profile showing iron of 20, TIBC of 314, iron percent saturation of 6.37, transferrin of 225, and ferritin of 73.5. Urinalysis positive for protein and ketones negative for blood or infection. On 12/21/2023 hemoglobin dropping to 7.3 and general surgery was consulted for evaluation to rule out GI bleed. CT abdomen and pelvis was completed revealing a large anterior abdominal wall subcutaneous fluid collection measuring 29 x 14 x 20 cm concerning for postoperative seroma from recent hernia repair otherwise negative for acute cardiopulmonary process. Patient was evaluated by general surgery and was taken EGD and colonoscopy on 12/24/2023 and IR took patient for drainage of seroma on 12/24/2023.. Pt was evaluated by physical therapy and deemed appropriate for assisted for rehab. EGD/colonoscopy did not identify an etiology of bleeding/anemia. Patient's oxygen requirements titrated down to 2 L. Her hemoglobin did remain stable. She should follow-up with her primary care physician, general surgery regarding her MATTHEW drain. She was prescribed Eliquis starter pack for her pulmonary embolism. I spent 34 minutes coordinating this discharge on 12/26 Physical exam: Gen: In NAD, non-toxic HEENT: normocephalic, atraumatic, hearing acuity is intant, mucous membranes moist CVS: perfusing all extremities well, no pitting edema, Respiratory: symmetric chest expansion, no accessory muscle use, GI: soft, NTTP, ND, : no suprapubic tenderness, no CVA tenderness MSK/Derm: no rashes, cyanosis Neuro: CN II-XII intact, no motor weakness, Psych: cooperative, euthymic mood, judgment and insight is intact Patient Condition at Discharge: Good Plan - Discharge Summary Discharge Rx Participant: No New Discharge Prescriptions: New Acetaminophen Tab [Tylenol] 650 mg PO Q6HR PRN tab PRN Reason: Mild Pain Or Fever > 100.5 Apixaban Initiation Dose--VTE [Eliquis Initiation Dosing for VTE Treatment] 10 mg PO BID #40 tab Ferrous Sulfate [Iron (65 MG Elemental)] 325 mg PO W/LUNCH #30 tab Pantoprazole [Protonix] 40 mg PO BID #60 tab Continue Albuterol Nebulized [Ventolin Nebulized] 2.5 mg INHALATION RT-Q2H PRN PRN Reason: Shortness Of Breath metFORMIN HCL ER [Glucophage XR] 1,000 mg PO AC-BRKFST Levothyroxine Sodium [Synthroid] 175 mcg PO DAILY Furosemide [Lasix] 20 mg PO DAILY Ergocalciferol (Vitamin D2) [Drisdol (50,000 Iu)] 1,250 mcg PO Q7D Sertraline [Zoloft] 100 mg PO DAILY Glimepiride [Amaryl] 4 mg PO DAILY Discharge Medication List Albuterol Nebulized [Ventolin Nebulized] 2.5 mg INHALATION RT-Q2H PRN 12/20/23 [History] Ergocalciferol (Vitamin D2) [Drisdol (50,000 Iu)] 1,250 mcg PO Q7D 12/20/23 [History] Furosemide [Lasix] 20 mg PO DAILY 12/20/23 [History] Glimepiride [Amaryl] 4 mg PO DAILY 12/20/23 [History] Levothyroxine Sodium [Synthroid] 175 mcg PO DAILY 12/20/23 [History] Sertraline [Zoloft] 100 mg PO DAILY 12/20/23 [History] metFORMIN HCL ER [Glucophage XR] 1,000 mg PO AC-BRKFST 12/20/23 [History] Acetaminophen Tab [Tylenol] 650 mg PO Q6HR PRN tab 12/27/23 [Rx] Apixaban Initiation Dose--VTE [Eliquis Initiation Dosing for VTE Treatment] 10 mg PO BID #40 tab 12/27/23 [Rx] Ferrous Sulfate [Iron (65 MG Elemental)] 325 mg PO W/LUNCH #30 tab 12/27/23 [Rx] Pantoprazole [Protonix] 40 mg PO BID #60 tab 12/27/23 [Rx] Follow up Appointment(s)/Referral(s): Samuel Melgar MD [Primary Care Provider] - 1-2 days Discharge Disposition: TRANSFER TO SNF/ECF
[2023-12-27 10:37] LABS: Anisocytosis Slight; Basophils % (A) 1 %; Eosinophils # (A) 0.2 k/uL (0-0.7); Eosinophils % (A) 3 %; HCT 31.5 % (34.0-46.0); HGB 9.2 gm/dL (11.4-16.0); Hypochromasia Marked; Lymphocytes # (A) 0.7 k/uL (1.0-4.8); Lymphocytes % (A) 11 %; MCH 21.7 pg (25.0-35.0); MCHC 29.1 g/dL (31.0-37.0); MCV 74.5 fL (80.0-100.0); Mean Platelet Volume 6.7; Microcytosis Moderate; Monocytes # (A) 0.3 k/uL (0-1.0); Monocytes % (A) 5 %; Neutrophils # (A) 4.8 k/uL (1.3-7.7); Neutrophils % (A) 78 %; Platelet Count 273 k/uL (150-450); Poikilocytosis Slight; RBC 4.23 m/uL (3.80-5.40); RDW 17.9 % (11.5-15.5); WBC 6.1 k/uL (3.8-10.6)
[2023-12-27 11:55] LABS: African American GFR (CKD) >90 (>60 ml/min/1.73 sqM); Anion Gap 6 mmol/L; Blood Urea Nitrogen 14 mg/dL (7-17); Calcium 9.1 mg/dL (8.4-10.2); Carbon Dioxide 35 mmol/L (22-30); Chloride 97 mmol/L (98-107); Glucose 230 mg/dL (74-99); Magnesium 2.1 mg/dL (1.6-2.3); Non-African American GFR(CKD) >90 (>60 ml/min/1.73 sqM); Potassium 3.8 mmol/L (3.5-5.1); Sodium 138 mmol/L (137-145)
--- NOTE | 2023-12-27 13:58 | P.PN ---
Subjective Progress Note Date: 12/27/23 Principal diagnosis: Acute pulmonary embolism and abdominal wall seroma This is a 57-year-old female patient is coming into the hospital because of worsening shortness of breath. Patient is morbidly obese. The patient has been experiencing shortness of breath for the past 2 to 3 weeks. Noted approximately 2 months ago, the patient had a repair of a large anterior abdominal wall hernia that was done at [facility]. Her course was uncomplicated. No previous history of DVT or pulmonary embolism. She reports some exertional dyspnea. No pleurisy. No hemoptysis. No chest pain. She has diabetes and hypertension hypothyroidism as comorbid conditions. No history of any malignancy. She came into the emergency room the patient's hemodynamics were essentially stable. As part of her routine blood work, the patient was given a D-dimer that was elevated at 3.1 and the rest of the coagulation profile within normal limits. Electrolytes are unremarkable. Renal function showed a creatinine of 0.7. LFTs were normal. Occult blood in the stool was negative. The patient was having some microcytic anemia with a hemoglobin of 8.3 and an MCV of 72 with a white cell count of 10.1 and a platelet count of 304. Initial chest x-ray showed no acute abnormalities and there was some elevation of left hemidiaphragm and cardiomegaly. CT angiogram of the chest showed a questionable filling defect in the right lower lobe pulmonary artery branch. No mediastinal lymphadenopathy. Some elevation of left hemidiaphragm and left basilar atelectatic changes were noted. Based on that, the patient was started on IV heparin. Doppler of the lower extremity showed no evidence of any DVTs. There was a cyst in the popliteal area measuring 5 cm in size in the right lower extremity. Currently on 2 L of oxygen by nasal cannula. No significant tachycardia. Has trace edema lower extremities bilaterally. UA is showing for WBCs, 7 RBCs, few bacteria. Negative for leukocyte esterase. Few oxalate stones. Troponin was negative. Lactic acid level was 0.9. proBNP level was 116. On 12/21/2023, seen the patient for a follow-up. The patient is hospitalized for worsening shortness of breath, the patient is suspected to have a pulmonary embolism. There was a questionable filling defect in the right lower lobe pulmonary artery branch and based on that the patient was started on anticoagulants. Echocardiogram was completed and the patient has normal RV, no pulm hypertension, normal LV, left-ventricular ejection fraction is essentially within normal limits in the order of 60 to 65%. Doppler lower extremity was also negative. The white cell count is 7.5 with hemoglobin 7.3 and platelet count of 275. BUN is 18 with a creatinine of 0.49. The patient is currently on 2 L of oxygen by nasal cannula with a pulse ox of 96 to 97%. No other significant events overnight. The patient remains on IV heparin for now. colonoscopy 5 years ago and the patient was found to have colonic polyps. On today's evaluation of 12/22/2023, the patient is being seen for a follow-up. The patient is essentially doing well. No new complaints. She remains on IV heparin. CAT scan of the abdomen was also done and the patient was found to have a large anterior abdominal wall subcutaneous fluid collection and this is probably a seroma following her hernia repair. No evidence of any abscess. No evidence of any acute intra-abdominal process. Atelectatic changes seen left lung base and the patient has cardiomegaly. Meanwhile, hemoglobin is at 7.7 which is improved compared to yesterday. Platelet count of 281.Because of 8.1. She remains on IV heparin. BUN is at 12 with a creatinine of 0.5 and sodium levels at 139. The patient was also seen by general surgery. There are plans to continue monitoring the patient and perform an EGD and colonoscopy for Mo nday. She is on IV iron for now. The patient is also on IV Protonix. No evidence of any GI bleeding at this point in time. On today's evaluation of 12/23/2023, the patient is being seen for a follow-up. Patient is doing well with no specific complaints. No respiratory distress. No chest pain. Hemoglobin stable at 8.0. She remains on IV heparin. The patient is going to undergo an EGD tomorrow to evaluate for any upper GI source of bleeding. Otherwise, she has no specific complaints. She is currently on 2 L of oxygen by nasal cannula with a pulse ox of 96%. [facility] for GI bleed is recommended. A consultation was also placed for interventional radiology for placement of a drain regarding the large abdominal wall seroma. Patient was evaluated today on 12/24/2023, patient seems to be doing well, does not seem to be in any distress, she had a catheter placed in her abdominal wall seroma by interventional radiology, and she has some serosanguineous drainage noted in the collecting bag. Patient denies any cough wheezing or shortness of breath, does not seem to be in any pulmonary discomfort.Remains on 4 L nasal cannula and O2 sats is 97%. Dinora on IV heparin, patient underwent EGD today, and she was found to have Linder's esophagus and diaphragmatic hiatal hernia WBC count today 6.6 hemoglobin 7.9. Platelets are 2 64,000 Reevaluate today on 12/25/2023, patient seems to be doing well, not in any distress, denies shortness of breath cough or wheezing, O2 saturation on room air was 86% but 97% on 4 L nasal cannula. Patient is resting in bed, and asymptomatic. Continues to have that abdominal wall drainage tube, and is draining serosanguineous material. Patient remains on heparin, I believe the patient could be transition to Eliquis once her drainage tube has been removed. Minimal amount of drainage overnight. WBC count is 6.6 hemoglobin is 7.9 PTT 46.2 Reevaluate today on 12/26/2023, patient continues to do well, she was transitioned from heparin to Eliquis for her pulmonary embolism. Continues to have some minimal drainage in her abdominal wall drainage bag, patient is relatively asymptomatic, denies any cough wheezing or shortness of breath, reviewed the note from general surgery, planning to have repeat EGD and biopsies of Linder's esophagus. In the meantime the patient has no specific complaints, she is on Eliquis and tolerating Eliquis very well. Hemoglobin is 8, has been holding anywhere between 7.7 up to 8.3. Basic metabolic profile is normal bicarb is 35 BUN is 11 creatinine 0.61 Patient was reeval on 12/27/2023, patient is doing well, asymptomatic, on room air, remains on Eliquis, plans are in progress to discharge the patient to ECF. No active pulmonary issues. Objective - Vital Signs Vital signs: Vital Signs Temp 98.2 F 12/27/23 08:00 Pulse 83 12/27/23 08:50 Resp 14 12/27/23 08:50 BP 113/75 12/27/23 08:00 Pulse Ox 92 L 12/27/23 09:27 FiO2 Intake & Output 12/26/23 12/27/23 12/27/23 18:59 06:59 18:59 Intake Total 420 118 Output Total 125 Balance 420 -7 Intake: Oral 420 118 Output: Drainage 125 Abdomen 125 Other: Voiding Method Toilet Toilet Toilet Diaper # Voids 1 1 - Exam General: Reveals a 58-year-old female in no distress, on room air Skin: No rashes Head: atraumatic, normocephalic, symmetric Eyes: EOMI, no lid lag, anicteric sclera, pupils equal round reactive to light ENT: Nose and ears atraumatic Neck: No thyromegaly, supple Mouth: no lip lesion, mucus membranes moist Cardiovascular: Distant S1-S2, no S3 gallop. Lungs: Symmetrical chest expansion, diminished breath sounds at the bases no rhonchi no wheezes Abdominal: Morbidly obese soft nontender, drainage tube noted in the right lower quadrant area. And seems to be collecting serosanguineous drainage Ext: No clubbing edema or cyanosis Neuro: CN II-XII grossly intact Psych: Normal mood affect and normal mental status examination - Labs CBC & Chem 7: 12/27/23 10:07 12/27/23 10:07 Labs: Abnormal Lab Results - Last 24 Hours (Table) 12/26/23 12/26/23 12/27/23 Range/Units 16:37 20:18 06:05 Hgb (11.4-16.0) gm/dL Hct (34.0-46.0) % MCV (80.0-100.0) fL MCH (25.0-35.0) pg MCHC (31.0-37.0) g/dL RDW (11.5-15.5) % Lymphocytes # (1.0-4.8) k/uL Chloride (98-107) mmol/L Carbon Dioxide (22-30) mmol/L Glucose (74-99) mg/dL POC Glucose (mg/dL) 181 H 264 H 172 H (70-110) mg/dL 12/27/23 12/27/23 Range/Units 10:07 10:07 Hgb 9.2 L (11.4-16.0) gm/dL Hct 31.5 L (34.0-46.0) % MCV 74.5 L (80.0-100.0) fL MCH 21.7 L (25.0-35.0) pg MCHC 29.1 L (31.0-37.0) g/dL RDW 17.9 H (11.5-15.5) % Lymphocytes # 0.7 L (1.0-4.8) k/uL Chloride 97 L (98-107) mmol/L Carbon Dioxide 35 H (22-30) mmol/L Glucose 230 H (74-99) mg/dL POC Glucose (mg/dL) (70-110) mg/dL Microbiology - Last 24 Hours (Table) 12/24/23 12:56 Anaerobic Culture - Preliminary Aspirate 12/24/23 12:56 Gram Stain - Final Other - Other Wound Culture - Final Assessment and Plan Assessment: Impression: Acute pulmonary embolism with no evidence of RV strain. Left basilar atelectasis Abdominal wall seroma requiring drainage by interventional radiology History of mild intermittent asthma Type 2 diabetes Morbid obesity Recent repair of ventral abdominal wall hernia and the patient developed abdominal seroma Linder esophagus Microcytic anemia secondary to above Hypothyroidism Benign essential hypertension History of depression Recommendation: Continue Eliquis, would recommend outpatient treatment of 3 to 6 months Continue abdominal wall drainage catheter for now, surgery to decide on the timing of removal of the abdominal wall catheter Continue incentive spirometry Continue to monitor hemoglobin Cleared from our perspective for discharge planning and follow-up on outpatient basis Will continue to follow. Time with Patient: Less than 30
--- NOTE | 2023-12-27 15:27 | P.PN ---
Subjective Progress Note Date: 12/27/23 CHIEF COMPLAINT: Anemia HISTORY OF PRESENT ILLNESS: Patient status post EGD revealing a diaphragmatic hiatal hernia and Linder's esophagus. Patient status post IR drainage of abdominal seroma. Patient reports that she is feels better. They are working on discharging patient. She denies any pain. She is tolerating diet. Afebrile. Hemoglobin stable at 9.2 PHYSICAL EXAM: VITAL SIGNS: Reviewed GENERAL: Well-developed in no acute distress. HEENT: No sclera icterus. Extraocular movements grossly intact. Moist buccal mucosa. Head is atraumatic, normocephalic. Hears conversational speech. No nasal drainage. NECK: Supple without lymphadenopathy. CHEST: Non-labored respirations and equal bilateral excursions. CARDIOVASCULAR: Palpable 2+ radial pulses. ABDOMEN: Soft. Nondistended. Abdominal binder in place MUSCULOSKELETAL: No clubbing or cyanosis. NEUROLOGIC: No focal or lateralizing signs. Cranial nerves II through XII grossly intact. PSYCH: Appropriate affect. Alert and oriented to person, place and time. SKIN: Well perfused. Good skin turgor. ASSESSMENT: 1. Anemia likely secondary to patient's abdominal seroma. status post EGD revealing diaphragmatic hiatal hernia and Linder's esophagus 2. New PE 3. Abdominal seroma status post drainage by IR service PLAN: -Patient can be discharge from surgical standpoint -Discharge patient with drain -Continue abdominal binder -Continue Protonix for Linder's esophagus -Recommend repeat upper endoscopy with biopsies for Linder's esophagus after appropriate treatment -Recommend that patient follows up with her surgeon after discharge Physician Garbage Pick Up Man note has been reviewed by physician. Signing provider agrees with the documented findings, assessment, and plan of care. Objective - Vital Signs Vital signs: Vital Signs Temp 98.2 F 12/27/23 08:00 Pulse 83 12/27/23 08:50 Resp 14 12/27/23 08:50 BP 113/75 12/27/23 08:00 Pulse Ox 92 L 12/27/23 09:27 FiO2 Intake & Output 12/26/23 12/27/23 12/27/23 18:59 06:59 18:59 Intake Total 420 118 Output Total 125 Balance 420 -7 Intake: Oral 420 118 Output: Drainage 125 Abdomen 125 Other: Voiding Method Toilet Toilet Toilet Diaper # Voids 1 1 - Labs CBC & Chem 7: 12/27/23 10:07 12/27/23 10:07 Labs: Abnormal Lab Results - Last 24 Hours (Table) 12/26/23 12/26/23 12/27/23 Range/Units 16:37 20:18 06:05 Hgb (11.4-16.0) gm/dL Hct (34.0-46.0) % MCV (80.0-100.0) fL MCH (25.0-35.0) pg MCHC (31.0-37.0) g/dL RDW (11.5-15.5) % Lymphocytes # (1.0-4.8) k/uL Chloride (98-107) mmol/L Carbon Dioxide (22-30) mmol/L Glucose (74-99) mg/dL POC Glucose (mg/dL) 181 H 264 H 172 H (70-110) mg/dL 12/27/23 12/27/23 Range/Units 10:07 10:07 Hgb 9.2 L (11.4-16.0) gm/dL Hct 31.5 L (34.0-46.0) % MCV 74.5 L (80.0-100.0) fL MCH 21.7 L (25.0-35.0) pg MCHC 29.1 L (31.0-37.0) g/dL RDW 17.9 H (11.5-15.5) % Lymphocytes # 0.7 L (1.0-4.8) k/uL Chloride 97 L (98-107) mmol/L Carbon Dioxide 35 H (22-30) mmol/L Glucose 230 H (74-99) mg/dL POC Glucose (mg/dL) (70-110) mg/dL Microbiology - Last 24 Hours (Table) 12/24/23 12:56 Anaerobic Culture - Preliminary Aspirate 12/24/23 12:56 Gram Stain - Final Other - Other Wound Culture - Final
== END 2023-12-27 12:24 | DRG 176 ==
LOC: EC 12:06 → 3SCARD 16:04
PROVIDERS: ADMIT Family Medicine; ATTEND Family Medicine
PROC: 0W9930Z Drainage of Right Pleural Cavity with Drainage Device, Percutaneous Approach (ICD-10-PCS; 2023-12-24)
PROC: 0DJ08ZZ Inspection of Upper Intestinal Tract, Via Natural or Artificial Opening Endoscopic (ICD-10-PCS; principal; 2023-12-24 07:30)
DX: I26.99 Other pulmonary embolism without acute cor pulmonale (principal); D62 Acute posthemorrhagic anemia; Z68.41 Body mass index [BMI] 40.0-44.9, adult; K91.89 Other postprocedural complications and disorders of digestive system; K91.872 Postprocedural seroma of a digestive system organ or structure following a digestive system procedure; D50.9 Iron deficiency anemia, unspecified; E03.9 Hypothyroidism, unspecified; E66.01 Morbid (severe) obesity due to excess calories; F32.A Depression, unspecified; G47.33 Obstructive sleep apnea (adult) (pediatric); G80.9 Cerebral palsy, unspecified; I10 Essential (primary) hypertension; J45.20 Mild intermittent asthma, uncomplicated; E11.649 Type 2 diabetes mellitus with hypoglycemia without coma; M71.20 Synovial cyst of popliteal space [Baker], unspecified knee; K44.9 Diaphragmatic hernia without obstruction or gangrene; K22.70 Barrett's esophagus without dysplasia; Z87.19 Personal history of other diseases of the digestive system; Z85.3 Personal history of malignant neoplasm of breast; Z80.3 Family history of malignant neoplasm of breast; Z79.899 Other long term (current) drug therapy; Z79.890 Hormone replacement therapy; Z79.84 Long term (current) use of oral hypoglycemic drugs
CPT/HCPCS: 36415; 43235; 49405; 71046; 71275; 74177; 76942; 80048; 80053; 81001; 82728; 83036; 83540; 83550; 83605; 83735; 83880; 84466; 84484; 85025; 85027; 85379; 85610; 85730; 86140; 87070; 87075; 87205; 93005; 93306; 93970; 94640; 94760; 96365; 96366; 96375; 99285

== ENCOUNTER 2024-01-25 17:40 | Inpatient (IN) | payer BC ==
--- NOTE | 2024-01-25 19:21 | ED ---
Abdominal Pain HPI - General Chief Complaint: Skin/Abscess/Foreign Body Stated Complaint: ABD RASH Time Seen by Provider: 01/25/24 18:25 Source: patient, EMS, RN notes reviewed, old records reviewed Mode of arrival: EMS Limitations: no limitations - History of Present Illness Initial Comments: This is a 58-year-old female to the ER for evaluation of abdominal pain significant abdominal pain and swelling and complains of redness and tenderness to the right side of her abdomen. States she has a complex history with her belly but is a poor historian regarding cause or why she does have this condition. Patient is without fever no nausea vomiting no diarrhea no other complaints MD Complaint: abdominal pain, other (Jayesh wall pain) -: days(s) Location: epigastric, suprapubic Radiation: RLQ, epigastric, suprapubic, R flank Migration to: RLQ Severity: moderate Severity scale (1-10): 6 Quality: fullness, sharp Consistency: intermittent Improves With: nothing Worsens With: nothing Context: recent surgery/procedure Associated Symptoms: denies other symptoms Treatments Prior to Arrival: other (0) - Related Data Home Medications Medication Instructions Recorded Confirmed Albuterol Nebulized [Ventolin 2.5 mg INHALATION RT-Q2H PRN 12/20/23 01/26/24 Nebulized] Ergocalciferol (Vitamin D2) 1,250 mcg PO Q7D 12/20/23 01/26/24 [Drisdol (50,000 Iu)] Furosemide [Lasix] 20 mg PO DAILY 12/20/23 01/26/24 Glimepiride [Amaryl] 4 mg PO DAILY 12/20/23 01/26/24 Levothyroxine Sodium [Synthroid] 175 mcg PO DAILY 12/20/23 01/26/24 Sertraline [Zoloft] 100 mg PO DAILY 12/20/23 01/26/24 metFORMIN HCL ER [Glucophage XR] 1,000 mg PO [id number] 12/20/23 01/26/24 Apixaban [Eliquis] 5 mg PO BID 01/22/24 01/26/24 Previous Rx's Medication Instructions Recorded Acetaminophen Tab [Tylenol] 650 mg PO Q6HR PRN tab 12/27/23 Ferrous Sulfate [Iron (65 MG 325 mg PO W/LUNCH #30 tab 12/27/23 Elemental)] Pantoprazole [Protonix] 40 mg PO BID #60 tab 12/27/23 Potassium Chloride ER [K-Dur 20] 20 meq PO DAILY #7 tab 01/22/24 Allergies Allergy/AdvReac Type Severity Reaction Status Date / Time No Known Allergies Allergy Verified 01/26/24 17:21 Review of Systems ROS Statement: Those systems with pertinent positive or pertinent negative responses have been documented in the HPI. ROS Other: All systems not noted in ROS Statement are negative. Past Medical History Past Medical History: Asthma, Diabetes Mellitus, Osteoarthritis (OA), Thyroid Disorder Additional Past Medical History / Comment(s): ovarian cysts History of Any Multi-Drug Resistant Organisms: None Reported Past Surgical History: Hernia Repair Additional Past Surgical History / Comment(s): ovarian cyst removal Past Anesthesia/Blood Transfusion Reactions: No Reported Reaction, Motion Sickness Past Psychological History: Depression Smoking Status: Never smoker Past Alcohol Use History: Occasional Past Drug Use History: None Reported - Past Family History Sister(s) Family Medical History: Cancer Additional Family Medical History / Comment(s): breast cancer General Exam Limitations: no limitations General appearance: alert, in no apparent distress, obese Head exam: Present: atraumatic, normocephalic, normal inspection Eye exam: Present: normal appearance, PERRL, EOMI. Absent: scleral icterus, conjunctival injection, periorbital swelling ENT exam: Present: normal exam, mucous membranes moist Neck exam: Present: normal inspection. Absent: tenderness, meningismus, lymphadenopathy Respiratory exam: Present: normal lung sounds bilaterally. Absent: respiratory distress, wheezes, rales, rhonchi, stridor Cardiovascular Exam: Present: regular rate, normal rhythm, normal heart sounds. Absent: systolic murmur, diastolic murmur, rubs, gallop, clicks GI/Abdominal exam: Present: soft, distended, tenderness (Significant significant significant area of cellulitis and warmth to the right anterior aspect of the abdomen with gross, mass), normal bowel sounds. Absent: guarding, rebound, rigid Extremities exam: Present: normal inspection, full ROM, normal capillary refill. Absent: tenderness, pedal edema, joint swelling, calf tenderness Back exam: Present: normal inspection Neurological exam: Present: alert, oriented X3, CN II-XII intact Psychiatric exam: Present: normal affect, normal mood Skin exam: Present: warm, dry, intact, normal color. Absent: rash Course Vital Signs 01/25/24 01/25/24 17:46 22:48 Temperature 98.3 F Pulse Rate 91 78 Respiratory 18 18 Rate Blood Pressure 105/69 111/68 O2 Sat by Pulse 98 95 Oximetry - Reevaluation(s) Reevaluation #1: 01/25/24 21:51 Record is reviewed Reevaluation #2: 01/25/24 21:51 Patient symptoms are unchanged Reevaluation #3: 01/25/24 21:51 Patient informed of results and questions answered Reevaluation #4: Was pt. sent in by a medical professional or institution (, [facility], [facility]CLE COUNTER, urgent care, hospital, or fdc...) When possible be specific @ -no Did you speak to anyone other than the patient for history (EMS, parent, family, police, friend...)? What history was obtained from this source @ -no Did you review nursing and triage notes (agree or disagree)? Why? @ -agree Are old charts reviewed (outside hosp., previous admission, EMS record, old EKG, old radiological studies, urgent care reports/EKG's, fdc records)? Report findings @ -yes Differential Diagnosis (chest pain, altered mental status, abdominal pain women, abdominal pain men, vaginal bleeding, weakness, fever, dyspnea, syncope, headache, dizziness, GI bleed, back pain, seizure, CVA, palpatations, mental health, musculoskeletal)? @ -prior EKG interpreted by me (3pts min.). @ -yes X-rays interpreted by me (1pt min.). @ -no CT interpreted by me (1pt min.). @ -yes positive for abscess versus seroma, abdominal wall cellulitis U/S interpreted by me (1pt. min.). @ -no What testing was considered but not performed or refused? (CT, X-rays, U/S, labs)? Why? @ -none What meds were considered but not given or refused? Why? @ -none Did you discuss the management of the patient with other professionals (professionals i.e. [facility] Medrano, CYCLE COUNTER, lab, RT, psych nurse, social welfare clerk, gas line installer supervisor, teacher, railroad police officer, casework manager)? Give summary @ -no Was smoking cessation discussed for >3mins.? @ -no Was critical care preformed (if so, how long)? @ -no Were there social determinants of health that impacted care today? How? (Homelessness, low income, unemployed, alcoholism, drug addiction, transportation, low edu. Level, literacy, decrease access to med. care, senior living, rehab)? @ -none Was there de-escalation of care discussed even if they declined (Discuss DNR or withdrawal of care, Hospice)? DNR status @ -no What co-morbidities impacted this encounter? (DM, HTN, Smoking, COPD, CAD, Ca ncer, CVA, ARF, Chemo, Hep., AIDS, mental health diagnosis, sleep apnea, morbid obesity)? @ -none Was patient admitted / discharged? Hospital course, mention meds given and route, prescriptions, significant lab abnormalities, going to OR and other pertinent info. @ - 58 female to the ER for evaluation abdominal wall pain redness and swelling with abdominal wall cellulitis rule out abscess versus seroma. Patient will be admitted for IV antibiotics surgical evaluation Admitted Undiagnosed new problem with uncertain prognosis? @ -no Drug Therapy requiring intensive monitoring for toxicity (Heparin, Nitro, Insulin, Cardizem)? @ -no Were any procedures done? @ -no Diagnosis/symptom? @ -Abdominal wall cellulitis Acute, or Chronic, or Acute on Chronic? @ -Acute Uncomplicated (without systemic symptoms) or Complicated (systemic symptoms)? @ -Complicated Side effects of treatment? @ -no Exacerbation, Progression, or Severe Exacerbation? @ -exacerbation Poses a threat to life or bodily function? How? (Chest pain, USA, LA, pneumonia, PE, COPD, DKA, ARF, appy, cholecystitis, CVA, Diverticulitis, Homicidal, Suicidal, threat to staff... and all critical care pts) @ -yes with significant infection Reevaluation #5: Differential Abdominal Pain Women: Appendicitis, Cholecystitis, diverticulosis, ischemic bowel, pancreatitis, hepatitis, UTI, gastroenteritis, AAA, incarcerated hernia, bowel obstruction, constipation, inflammatory bowel, hepatitis, peptic ulcer disease, splenic infarction, perforated viscus, vulvitis, ovarian torsion, PID, kidney stone, pl acenta abruption, this is not meant to be an all-inclusive list - Consultations Consultation #1: Spoke with sound who agrees to admit this patient Medical Decision Making - Medical Decision Making 58 female to the ER for evaluation abdominal wall pain redness and swelling with abdominal wall cellulitis rule out abscess versus seroma. Patient will be admitted for IV antibiotics surgical evaluation - Lab Data Result diagrams: 01/31/24 05:59 02/02/24 08:25 Lab Results 01/25/24 01/25/24 01/25/24 Range/Units 19:41 19:41 19:41 WBC 9.7 (3.8-10.6) k/uL RBC 3.69 L (3.80-5.40) m/uL Hgb 7.5 L (11.4-16.0) gm/dL Hct 25.8 L (34.0-46.0) % MCV 69.8 L (80.0-100.0) fL MCH 20.4 L (25.0-35.0) pg MCHC 29.3 L (31.0-37.0) g/dL RDW 17.4 H (11.5-15.5) % Plt Count 357 (150-450) k/uL MPV 6.7 Neutrophils % 81 % Lymphocytes % 8 % Monocytes % 6 % Eosinophils % 4 % Basophils % 1 % Neutrophils # 7.8 H (1.3-7.7) k/uL Lymphocytes # 0.8 L (1.0-4.8) k/uL Monocytes # 0.5 (0-1.0) k/uL Eosinophils # 0.4 (0-0.7) k/uL Basophils # 0.1 (0-0.2) k/uL Hypochromasia Marked Poikilocytosis Slight Anisocytosis Slight Microcytosis Marked PT 11.6 (10.0-12.5) sec INR 1.1 (<1.2) APTT 28.6 (22.0-30.0) sec Sodium 135 L (137-145) mmol/L Potassium 3.4 L (3.5-5.1) mmol/L Chloride 95 L (98-107) mmol/L Carbon Dioxide 37 H (22-30) mmol/L Anion Gap 3 mmol/L BUN 16 (7-17) mg/dL Creatinine 0.43 L (0.52-1.04) mg/dL Est GFR (CKD-EPI)AfAm >90 (>60 ml/min/1.73 sqM) Est GFR (CKD-EPI)NonAf >90 (>60 ml/min/1.73 sqM) Glucose 140 H (74-99) mg/dL Plasma Lactic Acid Kip (0.7-2.0) mmol/L Calcium 8.7 (8.4-10.2) mg/dL Total Bilirubin 0.4 (0.2-1.3) mg/dL AST 30 (14-36) U/L ALT 24 (4-34) U/L Alkaline Phosphatase 72 (38-126) U/L Total Protein 6.5 (6.3-8.2) g/dL Albumin 3.1 L (3.5-5.0) g/dL Amylase 39 (30-110) U/L Lipase 76 (23-300) U/L 01/25/24 Range/Units 19:41 WBC (3.8-10.6) k/uL RBC (3.80-5.40) m/uL Hgb (11.4-16.0) gm/dL Hct (34.0-46.0) % MCV (80.0-100.0) fL MCH (25.0-35.0) pg MCHC (31.0-37.0) g/dL RDW (11.5-15.5) % Plt Count (150-450) k/uL MPV Neutrophils % % Lymphocytes % % Monocytes % % Eosinophils % % Basophils % % Neutrophils # (1.3-7.7) k/uL Lymphocytes # (1.0-4.8) k/uL Monocytes # (0-1.0) k/uL Eosinophils # (0-0.7) k/uL Basophils # (0-0.2) k/uL Hypochromasia Poikilocytosis Anisocytosis Microcytosis PT (10.0-12.5) sec INR (<1.2) APTT (22.0-30.0) sec Sodium (137-145) mmol/L Potassium (3.5-5.1) mmol/L Chloride (98-107) mmol/L Carbon Dioxide (22-30) mmol/L Anion Gap mmol/L BUN (7-17) mg/dL Creatinine (0.52-1.04) mg/dL Est GFR (CKD-EPI)AfAm (>60 ml/min/1.73 sqM) Est GFR (CKD-EPI)NonAf (>60 ml/min/1.73 sqM) Glucose (74-99) mg/dL Plasma Lactic Acid Kip 0.8 (0.7-2.0) mmol/L Calcium (8.4-10.2) mg/dL Total Bilirubin (0.2-1.3) mg/dL AST (14-36) U/L ALT (4-34) U/L Alkaline Phosphatase (38-126) U/L Total Protein (6.3-8.2) g/dL Albumin (3.5-5.0) g/dL Amylase (30-110) U/L Lipase (23-300) U/L - Radiology Data Radiology results: report reviewed (ET of the abdomen pelvis shows persistent and recurrent abdominal wall inflammation with abscess versus seroma), image reviewed Disposition Clinical Impression: Hypokalemia, Abdominal wall abscess, Abdominal wall cellulitis Disposition: ADMITTED IP TO THIS HOSP Condition: Fair Is patient prescribed a controlled substance at d/c from ED?: No Time of Disposition: 21:50
[2024-01-25] MEDS: SODIUM CHLORIDE 0.9% 1,000 ML IV STA (19:47)
[2024-01-25 19:51] LABS: Anisocytosis Slight; Basophils # (A) 0.1 k/uL (0-0.2); Basophils % (A) 1 %; Eosinophils # (A) 0.4 k/uL (0-0.7); Eosinophils % (A) 4 %; HCT 25.8 % (34.0-46.0); HGB 7.5 gm/dL (11.4-16.0); Hypochromasia Marked; Lymphocytes # (A) 0.8 k/uL (1.0-4.8); Lymphocytes % (A) 8 %; MCH 20.4 pg (25.0-35.0); MCHC 29.3 g/dL (31.0-37.0); MCV 69.8 fL (80.0-100.0); Mean Platelet Volume 6.7; Microcytosis Marked; Monocytes # (A) 0.5 k/uL (0-1.0); Monocytes % (A) 6 %; Neutrophils # (A) 7.8 k/uL (1.3-7.7); Neutrophils % (A) 81 %; Platelet Count 357 k/uL (150-450); Poikilocytosis Slight; RBC 3.69 m/uL (3.80-5.40); RDW 17.4 % (11.5-15.5); WBC 9.7 k/uL (3.8-10.6)
[2024-01-25 20:00] LABS: ALT 24 U/L (4-34); African American GFR (CKD) >90 (>60 ml/min/1.73 sqM); Albumin 3.1 g/dL (3.5-5.0); Amylase 39 U/L (30-110); Anion Gap 3 mmol/L; Blood Urea Nitrogen 16 mg/dL (7-17); Calcium 8.7 mg/dL (8.4-10.2); Carbon Dioxide 37 mmol/L (22-30); Chloride 95 mmol/L (98-107); Glucose 140 mg/dL (74-99); INR 1.1 (<1.2); Lipase 76 U/L (23-300); Non-African American GFR(CKD) >90 (>60 ml/min/1.73 sqM); Partial Thromboplastin Time 28.6 sec (22.0-30.0); Prothrombin Time 11.6 sec (10.0-12.5); Sodium 135 mmol/L (137-145); Total Bilirubin 0.4 mg/dL (0.2-1.3); Total Protein 6.5 g/dL (6.3-8.2)
[2024-01-25 20:03] LABS: Potassium 3.4 mmol/L (3.5-5.1)
[2024-01-25 20:04] LABS: AST 30 U/L (14-36); Alkaline Phosphatase 72 U/L (38-126)
--- NOTE | 2024-01-25 21:08 | CT ---
EXAMINATION TYPE: CT abdomen pelvis w con CT DLP: 2168.4 mGycm, Automated exposure control for dose reduction was used. DATE OF EXAM: 01/25/2024 8:56 PM COMPARISON: 12/21/2023 CLINICAL INDICATION:Female, 58 years old with history of abdominal pain; Rash to RLQ of abdomen start ing today. Area is red and hard to the touch. Pt states hernia repair 10/12/23. TECHNIQUE: Axial CT abdomen pelvis w con;Sagittal and coronal reformats were created on a separate w orkstation. Contrast used:100ml mL of Isovue 300 with IV Contrast, (none if empty) Oral contrast used: without Oral Contrast (none if empty) FINDINGS: LOWER CHEST: Left lower lobe consolidation changes are partially visualized. The heart is mildly enlarged for size. ABDOMEN LIVER: Focal fatty infiltration adjacent to the falciform ligament in segment IVb GALLBLADDER AND BILE DUCTS: Gallbladder is not definitively visualized and may be surgically absent. PANCREAS: Unremarkable. SPLEEN: Unremarkable. ADRENAL GLANDS: Unremarkable. KIDNEYS AND URETERS: No evidence of hydronephrosis or renal calculus. The ureters are unremarkable. PELVIS BLADDER: Unremarkable REPRODUCTIVE: Unremarkable. ABDOMEN & PELVIS STOMACH AND BOWEL: No evidence of bowel obstruction. PERITONEUM/RETROPERITONEUM: No evidence of pneumoperitoneum or free fluid. VASCULATURE: No evidence of aortic aneurysm. MUSCULOSKELETAL: No acute osseous abnormalities. Moderate disc degeneration changes are present throu ghout the thoracolumbar spine. LYMPH NODES: No gross evidence for lymphadenopathy. SOFT TISSUE/ABDOMINAL WALL: Large anterior abdominal wall fluid collection in the subcutaneous tissue s now with subjacent gas and focal outpouching along the right lateral margin. Area measures at least 25 x 13 x 16.8 cm. The skin along the right lateral aspect of the abdominal wall remains thickened. IMPRESSION: 1. There remains a large anterior abdominal wall subcutaneous fluid collection. Now with subcutaneou s gas in the lumen. This gas is new from 12/21/2023. Given this was drained in interventional radiolog y department findings are compatible with seroma. Superimposed infection is not excluded. There is ne w focal herniation along the right lateral aspect possibly representing ruptured contents from this s eroma. 2. No evidence for acute intra-abdominal process. 3. Consolidation changes in the left lung base as visualized. Correlate for atelectasis versus airsp ezio disease. 4. Mild cardiomegaly.
[2024-01-25] MEDS ORDERED: VANCOMYCIN IV PER PHARMACY 1 EACH MISC MISCELLANE PRN (21:47)
[2024-01-25] MEDS ORDERED: ONDANSETRON 4 MG/2 ML VIAL IVP PRN (21:47)
[2024-01-25] MEDS ORDERED: NALOXONE 0.4 MG/ML 1 ML VIAL IV PRN (21:47)
[2024-01-25] MEDS ORDERED: MORPHINE SULFATE 4 MG/ML SYRINGE IV PRN (21:47)
[2024-01-25] MEDS ORDERED: ACETAMINOPHEN TAB 325 MG TAB PO PRN (21:47)
[2024-01-25] MEDS: AMPICILLIN-SULBACTAM 3 GM in SODIUM CHLORIDE 0.9% 100 ML IVPB STA (22:34)
[2024-01-25 23:49] LABS: Glucose,Whole Blood 151 mg/dL (70-110)
[2024-01-26] MEDS: VANCOMYCIN 1,750 MG in SODIUM CHLORIDE 0.9% 500 ML 500 ML IVPB STA (00:17)
[2024-01-26] MEDS: SODIUM CHLORIDE 0.9% 1,000 ML IV SCH (00:17)
[2024-01-26 06:01] LABS: Glucose,Whole Blood 160 mg/dL (70-110)
[2024-01-26] MEDS ORDERED: ACETAMINOPHEN TAB 325 MG TAB PO PRN (06:14)
[2024-01-26] MEDS ORDERED: DEXTROSE 50% SYRINGE 50 ML IVP PRN ×2 (06:15)
[2024-01-26] MEDS: AMPICILLIN-SULBACTAM 3 GM in SODIUM CHLORIDE 0.9% 100 ML IVPB SCH (06:20)
[2024-01-26] MEDS: INSULIN ASPART (NovoLOG) 100 UNIT/ML VIAL SQ SCH (06:25)
--- NOTE | 2024-01-26 06:25 | P.HPIM ---
History of Present Illness H&P Date: 01/25/24 Chief Complaint: Abdominal mass 58-year-old female with diabetes mellitus hypertension Patient coming in for evaluation of right-sided abdominal pain and palpable abdominal mass she claims that this started about 2 days ago and was increasing in pain and size for which she decided to come in for evaluation she denies any fevers chills denies any nausea or vomiting denies any constipation diarrhea denies any changes in bowel or urinary habit denies any GI bleeding. Patient recalls hernia surgery repair about 2 months ago, was complicated by seroma about a month ago for which she came in and underwent evacuation under IR. She was also recently diagnosed with pulmonary embolism about a month ago for which she is currently on Eliquis again denies any bleeding Patient overall is a poor historian. Patient denies tobacco smoking illicit drugs or heavy alcohol Patient denies any history of cancer or any known abdominal masses, denies any weight loss, denies any other constitutional symptoms like fever or night sweats review of systems Pertinent positives as noted in HPI. All other systems were reviewed and are negative on exam Constitutional: No acute distress, conversant, pleasant Eyes: Anicteric sclerae, moist conjunctiva, Pupils equal round reactive to light ENMT: NC/AT Oropharynx clear, no erythema, or exudates Neck: Supple, no masses, or JVD No carotid bruits No thyromegaly Lungs: Clear to auscultation Clear to percussion Normal respiratory effort, no accessory muscle use Cardiovascular: Heart regular in rate and rhythm, No murmurs, gallops, or rubs No peripheral edema Abdominal: Soft, with large palpable abdominal wall mass with a large bulge over the right flank right lower quadrant and suprapubic region with some erythema of the overlying skin in the right lower quadrant Nontender, no guarding, rebound or rigidity Abdomen moving with respiration Normoactive bowel sounds Extremities: No digital cyanosis No clubbing Pedal pulses intact and symmetrical Radial pulses intact and symmetrical No calf tenderness Psychiatric: Alert and oriented to person, place and time Appropriate affect fair judgement Neuro Muscles Strength 5/5 in all 4 extremities Sensation to light touch grossly present throughout Cranial nerves II-XII grossly intact Past Medical History Past Medical History: Asthma, Diabetes Mellitus, Osteoarthritis (OA), Pulmonary Embolus (PE), Thyroid Disorder Additional Past Medical History / Comment(s): ovarian cysts, PE 12/20/23 History of Any Multi-Drug Resistant Organisms: None Reported Past Surgical History: Hernia Repair Additional Past Surgical History / Comment(s): ovarian cyst removal Past Anesthesia/Blood Transfusion Reactions: No Reported Reaction, Motion Sickness Past Psychological History: Depression Smoking Status: Never smoker Past Alcohol Use History: Occasional Past Drug Use History: None Reported - Past Family History Sister(s) Family Medical History: Cancer Additional Family Medical History / Comment(s): breast cancer Medications and Allergies Home Medications Medication Instructions Recorded Confirmed Type Albuterol Nebulized [Ventolin 2.5 mg INHALATION RT-Q2H PRN 12/20/23 01/26/24 History Nebulized] Ergocalciferol (Vitamin D2) 1,250 mcg PO Q7D 12/20/23 01/26/24 History [Drisdol (50,000 Iu)] Furosemide [Lasix] 20 mg PO DAILY 12/20/23 01/26/24 History Glimepiride [Amaryl] 4 mg PO DAILY 12/20/23 01/26/24 History Levothyroxine Sodium [Synthroid] 175 mcg PO DAILY 12/20/23 01/26/24 History Sertraline [Zoloft] 100 mg PO DAILY 12/20/23 01/26/24 History metFORMIN HCL ER [Glucophage XR] 1,000 mg PO [id number] 12/20/23 01/26/24 History Acetaminophen Tab [Tylenol] 650 mg PO Q6HR PRN tab 12/27/23 01/26/24 Rx Ferrous Sulfate [Iron (65 MG 325 mg PO W/LUNCH #30 tab 12/27/23 01/26/24 Rx Elemental)] Pantoprazole [Protonix] 40 mg PO BID #60 tab 12/27/23 01/26/24 Rx Apixaban [Eliquis] 5 mg PO BID 01/22/24 01/26/24 History Potassium Chloride ER [K-Dur 20] 20 meq PO DAILY #7 tab 01/22/24 01/26/24 Rx Allergies Allergy/AdvReac Type Severity Reaction Status Date / Time No Known Allergies Allergy Verified 01/25/24 17:49 Physical Exam Vitals: Vital Signs Temp Pulse Pulse Resp BP BP Pulse Ox 01/26/24 01:54 98.0 F 81 18 116/72 96 01/25/24 23:53 97.6 F 79 20 107/69 92 L 01/25/24 22:48 78 18 111/68 95 01/25/24 17:46 98.3 F 91 18 105/69 98 Intake and Output 01/25/24 01/25/24 01/26/24 14:59 22:59 06:59 Other: # Voids 1 Weight 111.13 kg 111.13 kg Results CBC & Chem 7: 01/25/24 19:41 01/25/24 19:41 Labs: Abnormal Lab Results - Last 24 Hours (Table) 01/25/24 01/25/24 01/25/24 Range/Units 19:41 19:41 23:41 RBC 3.69 L (3.80-5.40) m/uL Hgb 7.5 L (11.4-16.0) gm/dL Hct 25.8 L (34.0-46.0) % MCV 69.8 L (80.0-100.0) fL MCH 20.4 L (25.0-35.0) pg MCHC 29.3 L (31.0-37.0) g/dL RDW 17.4 H (11.5-15.5) % Neutrophils # 7.8 H (1.3-7.7) k/uL Lymphocytes # 0.8 L (1.0-4.8) k/uL Sodium 135 L (137-145) mmol/L Potassium 3.4 L (3.5-5.1) mmol/L Chloride 95 L (98-107) mmol/L Carbon Dioxide 37 H (22-30) mmol/L Creatinine 0.43 L (0.52-1.04) mg/dL Glucose 140 H (74-99) mg/dL POC Glucose (mg/dL) 151 H (70-110) mg/dL Albumin 3.1 L (3.5-5.0) g/dL Thrombosis Risk Factor Assmnt - Choose All That Apply Any of the Below Risk Factors Present?: Yes Each Factor Represents 1 point: Obesity (BMI >25) Other Risk Factors: Yes Each Risk Factor Represents 3 Points: History of DVT/PE Other congenital or acquired thrombophilia - If yes, enter type in comment: No Thrombosis Risk Factor Assessment Total Risk Factor Score: 4 Thrombosis Risk Factor Assessment Level: Moderate Risk Assessment and Plan Assessment: 58-year-old female with diabetes mellitus hypertension hypothyroid coming in for 2-day history of painful large palpable abdominal mass with recent history of abdominal wall seroma post hernia repair I discussed case with ED doctor and accepted the admission for suspected abdominal wall seroma and infection with anticipated length of stay more than 2 midnights Large anterior abdominal wall subcutaneous fluid collection rule out infectious process CT scan showed possibility of gas in the lumen which is new compared to imaging from December 2023 with a new focal herniation over the right lateral aspect Surgery consult IV fluid hydration with normal saline 75 cc/h patient received 1 L bolus in the ED Follow-up cultures Continue with vancomycin dosing by pharmacy Continue with Unasyn 3 g IV piggyback every 8 hours Tylenol for fever No leukocytosis white count 9.7, afebrile Lactic acid unremarkable 0.8 Diabetes mellitus Insulin sliding scale Mild hypokalemia Resume home potassium 20 mill equivalent p.o. daily Monitor potassium level Otherwise renal function unremarkable BUN 16 creatinine 0.4 sodium 135 History of depression Continue with Zoloft home medication Recent history of acute PE Continue with Eliquis Hemoglobin remained stable compared to levels from December of this year she is ranging around 8-7.5 Hypothyroid Continue with levothyroxine Full code DVT prophylaxis currently on Eliquis for recent diagnosis of PE GI prophylaxis continue with Protonix
[2024-01-26] MEDS ORDERED: VANCOMYCIN IV PER PHARMACY 1 EACH MISC MISCELLANE PRN (06:39)
[2024-01-26] MEDS: LEVOTHYROXINE 88 MCG TAB PO SCH (06:48)
[2024-01-26 07:37] LABS: Anisocytosis Slight; Basophils % (A) 0 %; Eosinophils # (A) 0.3 k/uL (0-0.7); Eosinophils % (A) 3 %; HCT 27.6 % (34.0-46.0); HGB 7.6 gm/dL (11.4-16.0); Hypochromasia Marked; Lymphocytes # (A) 0.4 k/uL (1.0-4.8); Lymphocytes % (A) 5 %; MCH 19.9 pg (25.0-35.0); MCHC 27.5 g/dL (31.0-37.0); MCV 72.4 fL (80.0-100.0); Mean Platelet Volume 7.1; Microcytosis Moderate; Monocytes # (A) 0.6 k/uL (0-1.0); Monocytes % (A) 7 %; Neutrophils # (A) 7.6 k/uL (1.3-7.7); Neutrophils % (A) 83 %; Platelet Count 354 k/uL (150-450); Poikilocytosis Slight; RBC 3.81 m/uL (3.80-5.40); RDW 17.2 % (11.5-15.5); WBC 9.1 k/uL (3.8-10.6)
[2024-01-26 08:14] LABS: ALT 24 U/L (4-34); AST 29 U/L (14-36); African American GFR (CKD) >90 (>60 ml/min/1.73 sqM); Albumin 2.8 g/dL (3.5-5.0); Alkaline Phosphatase 82 U/L (38-126); Anion Gap 5 mmol/L; Blood Urea Nitrogen 11 mg/dL (7-17); Calcium 8.5 mg/dL (8.4-10.2); Carbon Dioxide 35 mmol/L (22-30); Chloride 100 mmol/L (98-107); Glucose 140 mg/dL (74-99); Magnesium 2.1 mg/dL (1.6-2.3); Non-African American GFR(CKD) >90 (>60 ml/min/1.73 sqM); Phosphorus 4.5 mg/dL (2.5-4.5); Potassium 3.4 mmol/L (3.5-5.1); Sodium 140 mmol/L (137-145); Total Bilirubin 0.3 mg/dL (0.2-1.3)
[2024-01-26] MEDS: APIXABAN 5 MG TAB PO SCH (08:24)
[2024-01-26] MEDS: POTASSIUM CHLORIDE ER 20 MEQ TAB.ER PO SCH (08:24)
[2024-01-26] MEDS: SERTRALINE 100 MG TAB PO SCH (08:24)
[2024-01-26] MEDS: PANTOPRAZOLE 40 MG/10 ML VIAL IV SCH (08:24)
[2024-01-26] MEDS: VANCOMYCIN 1,750 MG in SODIUM CHLORIDE 0.9% 500 ML 500 ML IVPB SCH (08:24)
[2024-01-26 11:44] LABS: Glucose,Whole Blood 226 mg/dL (70-110)
--- NOTE | 2024-01-26 12:10 | P.CON ---
Consult Note - . Consult date: 01/26/24 Assessment/Plan:: This is a 58-year-old female to the ER for evaluation of abdominal pain significant abdominal pain and swelling and complains of redness and tenderness to the right side of her abdomen. CT-AP shows likely infected seroma MD Complaint: abdominal pain, other (Jayesh wall pain) -: days(s) Location: epigastric, suprapubic Radiation: RLQ, epigastric, suprapubic, R flank Migration to: RLQ Severity: moderate Severity scale (1-10): 6 Quality: fullness, sharp Consistency: intermittent Improves With: nothing Worsens With: nothing Context: recent surgery/procedure Associated Symptoms: denies other symptoms Treatments Prior to Arrival: other (0) - Related Data Review of Systems ROS Statement: Those systems with pertinent positive or pertinent negative responses have been documented in the HPI. ROS Other: All systems not noted in ROS Statement are negative. Past Medical History Past Medical History: Asthma, Diabetes Mellitus, Osteoarthritis (OA), Thyroid Disorder Additional Past Medical History / Comment(s): ovarian cysts History of Any Multi-Drug Resistant Organisms: None Reported Past Surgical History: Hernia Repair Additional Past Surgical History / Comment(s): ovarian cyst removal Past Anesthesia/Blood Transfusion Reactions: No Reported Reaction, Motion Sickness Past Psychological History: Depression Smoking Status: Never smoker Past Alcohol Use History: Occasional Past Drug Use History: None Reported - Past Family History Sister(s) Family Medical History: Cancer Additional Family Medical History / Comment(s): breast cancer General Exam Limitations: no limitations General appearance: alert, in no apparent distress, obese Head exam: Present: atraumatic, normocephalic, normal inspection Eye exam: Present: normal appearance, PERRL, EOMI. Absent: scleral icterus, conjunctival injection, periorbital swelling ENT exam: Present: normal exam, mucous membranes moist Neck exam: Present: normal inspection. Absent: tenderness, meningismus, lymphadenopathy Respiratory exam: Present: normal lung sounds bilaterally. Absent: respiratory distress, wheezes, rales, rhonchi, stridor Cardiovascular Exam: Present: regular rate, normal rhythm, normal heart sounds. Absent: systolic murmur, diastolic murmur, rubs, gallop, clicks GI/Abdominal exam: Present: soft, distended, tenderness (Significant significant significant area of cellulitis and warmth to the right anterior aspect of the abdomen with gross, mass), normal bowel sounds. Absent: guarding, rebound, rigid Extremities exam: Present: normal inspection, full ROM, normal capillary refill. Absent: tenderness, pedal edema, joint swelling, calf tenderness Back exam: Present: normal inspection Neurological exam: Present: alert, oriented X3, CN II-XII intact Psychiatric exam: Present: normal affect, normal mood Skin exam: Present: warm, dry, intact, normal color. Absent: rash 58 year old female with infected seroma on CT-AP -ok for regular diet -Recommend IR consult for drainage of seroma and drain placement -Continue Vancomycin -No acute surgical intervention
--- NOTE | 2024-01-26 13:20 | P.PN ---
Subjective Progress Note Date: 01/26/24 Patient is a 58-year-old female with diabetes mellitus and hypertension who presents to the ED for evaluation of right-sided abdominal mass and also erythema. Patient is denying any abdominal pain. Patient states that in October 2023 she had hernia repair done at [facility]. Patient states that last month she came into our hospital and was found to have fluid collection and this was drained by IR. Patient overall is a poor historian. In the ED CT abdomen pelvis showed possibility of gas in the lumen which is new compared to imaging from December 2023 with a new focal herniation over the right lateral aspect. Patient admitted to the medicine service with general surgery consultation. Patient seen by general surgery who recommended IR consult for drainage. Patient also started on IV vancomycin and Unasyn. Patient seen this morning. She is denying any abdominal pain. She denies fever or chills. Physical exam General examination - Alert and Oriented 3 in NAD Heart - + S1S2 no murmurs Lungs - Clear to auscultation Abdomen erythema in the right lower quadrant, palpable mass in the right lower quadrant. 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 I reviewed cultures from aspiration done by IR last month that was negative I reviewed CT scan done on this admission that is concerning for infected seroma Continue with vancomycin and Unasyn Follow-up on blood cultures Tylenol as needed for fever Patient does not meet sepsis criteria Diabetes mellitus Sliding scale insulin Mild hypokalemia Replete as needed History of depression Continue Zoloft Recent history of acute PE Continue with Eliquis Hemoglobin is stable compared to levels done in December which is around 8-7.5. Hypothyroidism Continue levothyroxine Full code DVT prophylaxis: Eliquis Objective - Vital Signs Vital signs: Vital Signs Temp 98.2 F 01/26/24 12:23 Pulse 86 01/26/24 12:23 Resp 17 01/26/24 12:23 BP 114/66 01/26/24 12:23 Pulse Ox 93 L 01/26/24 12:23 FiO2 Intake & Output 01/25/24 01/26/24 01/26/24 18:59 06:59 18:59 Weight 111.13 kg 111.13 kg Other: # Voids 2 - Labs CBC & Chem 7: 01/26/24 06:53 01/26/24 06:53 Labs: Abnormal Lab Results - Last 24 Hours (Table) 01/25/24 01/25/24 01/25/24 Range/Units 19:41 19:41 23:41 RBC 3.69 L (3.80-5.40) m/uL Hgb 7.5 L (11.4-16.0) gm/dL Hct 25.8 L (34.0-46.0) % MCV 69.8 L (80.0-100.0) fL MCH 20.4 L (25.0-35.0) pg MCHC 29.3 L (31.0-37.0) g/dL RDW 17.4 H (11.5-15.5) % Neutrophils # 7.8 H (1.3-7.7) k/uL Lymphocytes # 0.8 L (1.0-4.8) k/uL Sodium 135 L (137-145) mmol/L Potassium 3.4 L (3.5-5.1) mmol/L Chloride 95 L (98-107) mmol/L Carbon Dioxide 37 H (22-30) mmol/L Creatinine 0.43 L (0.52-1.04) mg/dL Glucose 140 H (74-99) mg/dL POC Glucose (mg/dL) 151 H (70-110) mg/dL Total Protein (6.3-8.2) g/dL Albumin 3.1 L (3.5-5.0) g/dL 01/26/24 01/26/24 01/26/24 Range/Units 05:59 06:53 06:53 RBC (3.80-5.40) m/uL Hgb 7.6 L (11.4-16.0) gm/dL Hct 27.6 L (34.0-46.0) % MCV 72.4 L (80.0-100.0) fL MCH 19.9 L (25.0-35.0) pg MCHC 27.5 L (31.0-37.0) g/dL RDW 17.2 H (11.5-15.5) % Neutrophils # (1.3-7.7) k/uL Lymphocytes # 0.4 L (1.0-4.8) k/uL Sodium (137-145) mmol/L Potassium 3.4 L (3.5-5.1) mmol/L Chloride (98-107) mmol/L Carbon Dioxide 35 H (22-30) mmol/L Creatinine 0.44 L (0.52-1.04) mg/dL Glucose 140 H (74-99) mg/dL POC Glucose (mg/dL) 160 H (70-110) mg/dL Total Protein 6.0 L (6.3-8.2) g/dL Albumin 2.8 L (3.5-5.0) g/dL 01/26/24 Range/Units 11:43 RBC (3.80-5.40) m/uL Hgb (11.4-16.0) gm/dL Hct (34.0-46.0) % MCV (80.0-100.0) fL MCH (25.0-35.0) pg MCHC (31.0-37.0) g/dL RDW (11.5-15.5) % Neutrophils # (1.3-7.7) k/uL Lymphocytes # (1.0-4.8) k/uL Sodium (137-145) mmol/L Potassium (3.5-5.1) mmol/L Chloride (98-107) mmol/L Carbon Dioxide (22-30) mmol/L Creatinine (0.52-1.04) mg/dL Glucose (74-99) mg/dL POC Glucose (mg/dL) 226 H (70-110) mg/dL Total Protein (6.3-8.2) g/dL Albumin (3.5-5.0) g/dL
[2024-01-26 15:16] VITALS: BMI 42.0
[2024-01-26 17:51] LABS: Glucose,Whole Blood 169 mg/dL (70-110)
[2024-01-26 20:08] LABS: Glucose,Whole Blood 223 mg/dL (70-110)
[2024-01-27 05:55] LABS: Glucose,Whole Blood 158 mg/dL (70-110)
[2024-01-27 09:32] LABS: HCT 25.8 % (37.2-46.3); MCH 19.9 pg (27.0-32.0); MCHC 27.1 g/dL (32.0-37.0); MCV 73.5 FL (80.0-97.0); Mean Platelet Volume 8.9 FL (9.5-12.2); NRBC Per 100 WBC 0 X 10*3/uL (0.00-0.01); Platelet Count 322 X 10*3/uL (140-440); RBC 3.51 X 10*6/uL (4.10-5.20); RDW 18.6 % (11.5-14.5); WBC 9.03 X 10*3/uL (4.50-10.00)
[2024-01-27 09:51] LABS: Blood Urea Nitrogen 8.1 mg/dL (9.0-27.0); Carbon Dioxide 30.7 mmol/L (21.6-31.8); Chloride 101 mmol/L (96-109); Glucose 132 mg/dL (70-110); Potassium 3.6 mmol/L (3.5-5.5); Sodium 143 mmol/L (135-145)
[2024-01-27 10:13] LABS: Basophils # (A) 0.03 X 10*3/uL (0.00-0.10); Basophils % (A) 0.3 %; Eosinophils # (A) 0.33 X 10*3/uL (0.04-0.35); Eosinophils % (A) 3.7 %; Lymphocytes # (A) 0.84 X 10*3/uL (0.90-5.00); Lymphocytes % (A) 9.3 %; Monocytes # (A) 0.69 X 10*3/uL (0.20-1.00); Monocytes % (A) 7.6 %; Neutrophils # (A) 7.07 X 10*3/uL (1.80-7.70); Neutrophils % (A) 78.3 %
[2024-01-27 10:14] LABS: Elliptocytes 2+; Hypochromasia (M) 2+; Microcytosis (M) 2+
--- NOTE | 2024-01-27 10:39 | P.PN ---
Subjective Progress Note Date: 01/27/24 Patient is a 58-year-old female with diabetes mellitus and hypertension who presents to the ED for evaluation of right-sided abdominal mass and also erythema. Patient is denying any abdominal pain. Patient states that in October 2023 she had hernia repair done at [facility]. Patient states that last month she came into our hospital and was found to have fluid collection and this was drained by IR. Patient overall is a poor historian. In the ED CT abdomen pelvis showed possibility of gas in the lumen which is new compared to imaging from December 2023 with a new focal herniation over the right lateral aspect. Patient admitted to the medicine service with general surgery consultation. Patient seen by general surgery who recommended IR consult for drainage. Patient also started on IV vancomycin and Unasyn. Patient seen this morning. She states that she is feeling short of breath to day. She is otherwise denying any abdominal pain. Physical exam General examination - Alert and Oriented 3 in NAD Heart - + S1S2 no murmurs Lungs -diminished breath sounds bilaterally Abdomen erythema in the right lower quadrant, palpable mass in the right lower quadrant. 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 Continue with vancomycin and Unasyn Follow-up on blood cultures Tylenol as needed for fever Patient does not meet sepsis criteria Shortness of breath Will start DuoNeb Check chest x-ray Diabetes mellitus Sliding scale insulin Hemoglobin A1c is 6.6 Hold oral diabetic meds Mild hypokalemia Replete as needed History of depression Continue Zoloft Recent history of acute PE Continue with Eliquis Hemoglobin is stable compared to levels done in December which is around 8-7.5. Hemoglobin this morning is 7.0 Hypothyroidism Continue levothyroxine Midline ordered for difficult IV access Full code DVT prophylaxis: Eliquis Objective - Vital Signs Vital signs: Vital Signs Temp 98.6 F 01/27/24 08:00 Pulse 75 01/27/24 08:00 Resp 16 01/27/24 08:00 BP 132/95 01/27/24 08:00 Pulse Ox 95 01/27/24 08:00 FiO2 Intake & Output 01/26/24 01/27/24 01/27/24 18:59 06:59 18:59 Weight 111.13 kg Other: Voiding Method Bedside Commode # Voids 1 3 # Bowel Movements 1 - Labs CBC & Chem 7: 01/27/24 04:02 01/27/24 04:02 Labs: Abnormal Lab Results - Last 24 Hours (Table) 01/26/24 01/26/24 01/26/24 Range/Units 11:43 17:50 19:49 RBC (4.10-5.20) X 10*6/uL Hgb (12.0-15.0) g/dL Hct (37.2-46.3) % MCV (80.0-97.0) FL MCH (27.0-32.0) pg MCHC (32.0-37.0) g/dL RDW (11.5-14.5) % MPV (9.5-12.2) FL Immature Gran # (0.00-0.04) X 10*3/uL Lymphocytes # (0.90-5.00) X 10*3/uL Hypochromasia (manual) Microcytosis (manual) Elliptocytes BUN (9.0-27.0) mg/dL Creatinine (0.6-1.5) mg/dL Glucose (70-110) mg/dL POC Glucose (mg/dL) 226 H 169 H 223 H (70-110) mg/dL Hemoglobin A1c (<=6.0) % 01/27/24 01/27/24 01/27/24 Range/Units 04:02 04:02 04:02 RBC 3.51 L (4.10-5.20) X 10*6/uL Hgb 7.0 L (12.0-15.0) g/dL Hct 25.8 L (37.2-46.3) % MCV 73.5 L (80.0-97.0) FL MCH 19.9 L (27.0-32.0) pg MCHC 27.1 L (32.0-37.0) g/dL RDW 18.6 H (11.5-14.5) % MPV 8.9 L (9.5-12.2) FL Immature Gran # 0.07 H (0.00-0.04) X 10*3/uL Lymphocytes # 0.84 L (0.90-5.00) X 10*3/uL Hypochromasia (manual) 2+ A Microcytosis (manual) 2+ A Elliptocytes 2+ A BUN 8.1 L (9.0-27.0) mg/dL Creatinine 0.5 L (0.6-1.5) mg/dL Glucose 132 H (70-110) mg/dL POC Glucose (mg/dL) (70-110) mg/dL Hemoglobin A1c 6.6 H (<=6.0) % 01/27/24 Range/Units 05:54 RBC (4.10-5.20) X 10*6/uL Hgb (12.0-15.0) g/dL Hct (37.2-46.3) % MCV (80.0-97.0) FL MCH (27.0-32.0) pg MCHC (32.0-37.0) g/dL RDW (11.5-14.5) % MPV (9.5-12.2) FL Immature Gran # (0.00-0.04) X 10*3/uL Lymphocytes # (0.90-5.00) X 10*3/uL Hypochromasia (manual) Microcytosis (manual) Elliptocytes BUN (9.0-27.0) mg/dL Creatinine (0.6-1.5) mg/dL Glucose (70-110) mg/dL POC Glucose (mg/dL) 158 H (70-110) mg/dL Hemoglobin A1c (<=6.0) %
[2024-01-27 11:33] LABS: Glucose,Whole Blood 251 mg/dL (70-110)
--- NOTE | 2024-01-27 11:51 | P.PN ---
Subjective Progress Note Date: 01/27/24 Principal diagnosis: Abdominal wall seroma Patient did well overnight. Chronic shortness of breath. Patient apparently is on oxygen at home. Patient does have history of recent pulmonary embolism. Patient with CAT scan showing a large abdominal wall fluid collection. Some air foci within the fluid collection. Infected seroma suspected. Apparently had hernia repair at [facility] earlier this year. Apparently this is already drained once percutaneously per patient. Objective - Vital Signs Vital signs: Vital Signs Temp 98.6 F 01/27/24 08:00 Pulse 75 01/27/24 08:00 Resp 16 01/27/24 08:00 BP 132/95 01/27/24 08:00 Pulse Ox 95 01/27/24 08:00 FiO2 Intake & Output 01/26/24 01/27/24 01/27/24 18:59 06:59 18:59 Weight 111.13 kg Other: Voiding Method Bedside Commode # Voids 1 3 # Bowel Movements 1 - Exam Abdomen: Soft, firm right upper quadrant with mild erythema, mild tenderness - Labs CBC & Chem 7: 01/27/24 04:02 01/27/24 04:02 Labs: Abnormal Lab Results - Last 24 Hours (Table) 01/26/24 01/26/24 01/27/24 Range/Units 17:50 19:49 04:02 RBC (4.10-5.20) X 10*6/uL Hgb (12.0-15.0) g/dL Hct (37.2-46.3) % MCV (80.0-97.0) FL MCH (27.0-32.0) pg MCHC (32.0-37.0) g/dL RDW (11.5-14.5) % MPV (9.5-12.2) FL Immature Gran # (0.00-0.04) X 10*3/uL Lymphocytes # (0.90-5.00) X 10*3/uL Hypochromasia (manual) Microcytosis (manual) Elliptocytes BUN (9.0-27.0) mg/dL Creatinine (0.6-1.5) mg/dL Glucose (70-110) mg/dL POC Glucose (mg/dL) 169 H 223 H (70-110) mg/dL Hemoglobin A1c 6.6 H (<=6.0) % 01/27/24 01/27/24 01/27/24 Range/Units 04:02 04:02 05:54 RBC 3.51 L (4.10-5.20) X 10*6/uL Hgb 7.0 L (12.0-15.0) g/dL Hct 25.8 L (37.2-46.3) % MCV 73.5 L (80.0-97.0) FL MCH 19.9 L (27.0-32.0) pg MCHC 27.1 L (32.0-37.0) g/dL RDW 18.6 H (11.5-14.5) % MPV 8.9 L (9.5-12.2) FL Immature Gran # 0.07 H (0.00-0.04) X 10*3/uL Lymphocytes # 0.84 L (0.90-5.00) X 10*3/uL Hypochromasia (manual) 2+ A Microcytosis (manual) 2+ A Elliptocytes 2+ A BUN 8.1 L (9.0-27.0) mg/dL Creatinine 0.5 L (0.6-1.5) mg/dL Glucose 132 H (70-110) mg/dL POC Glucose (mg/dL) 158 H (70-110) mg/dL Hemoglobin A1c (<=6.0) % 01/27/24 Range/Units 11:13 RBC (4.10-5.20) X 10*6/uL Hgb (12.0-15.0) g/dL Hct (37.2-46.3) % MCV (80.0-97.0) FL MCH (27.0-32.0) pg MCHC (32.0-37.0) g/dL RDW (11.5-14.5) % MPV (9.5-12.2) FL Immature Gran # (0.00-0.04) X 10*3/uL Lymphocytes # (0.90-5.00) X 10*3/uL Hypochromasia (manual) Microcytosis (manual) Elliptocytes BUN (9.0-27.0) mg/dL Creatinine (0.6-1.5) mg/dL Glucose (70-110) mg/dL POC Glucose (mg/dL) 251 H (70-110) mg/dL Hemoglobin A1c (<=6.0) % Assessment and Plan (1) Abdominal wall abscess Narrative/Plan: 58-year-old female with abdominal wall infected seroma/abscess. Patient with history of cerebral palsy. Somewhat poor historian. Will require drainage either percutaneously or open. Continue antibiotics. Current Visit: Yes Status: Acute Code(s): L02.211 - CUTANEOUS ABSCESS OF ABDOMINAL WALL SNOMED Code(s): 84363859
[2024-01-27] MEDS: IPRATROPIUM-ALBUTEROL 3 ML NEB INHALATION SCH (12:29)
--- NOTE | 2024-01-27 15:00 | XR ---
EXAMINATION TYPE: XR chest 1V portable DATE OF EXAM: 01/27/2024 10:58 AM CLINICAL INDICATION:Female, 58 years old with history of shortness of breath; H COMPARISON: Chest radiographs from 12/20/2023 TECHNIQUE: XR chest 1V portable Frontal view of the chest. FINDINGS: Lungs/Pleura: There is no evidence of pleural effusion, focal consolidation, or pneumothorax. Pulmonary vascularity: Mild pulmonary vascular congestion. Heart/mediastinum: Cardiomediastinal silhouette is enlarged and stable. Musculoskeletal: No acute osseous pathology. IMPRESSION: Cardiomegaly and mild pulmonary vascular congestion. Correlate with BNP for congestive heart failure.
[2024-01-27] MEDS: FUROSEMIDE 10 MG/ML 4 ML VIAL IV STA (15:34)
[2024-01-27 16:24] LABS: Glucose,Whole Blood 202 mg/dL (70-110)
[2024-01-27] MEDS: VANCOMYCIN TROUGH DUE 1 EACH MISC MISCELLANE ONE (16:47)
[2024-01-27 19:24] LABS: Glucose,Whole Blood 250 mg/dL (70-110)
[2024-01-27] MEDS: VANCOMYCIN 1,750 MG in SODIUM CHLORIDE 0.9% 500 ML 500 ML IVPB SCH (20:55)
[2024-01-28] MEDS: IPRATROPIUM-ALBUTEROL 3 ML NEB INHALATION PRN (01:22)
[2024-01-28 06:08] LABS: Glucose,Whole Blood 173 mg/dL (70-110)
[2024-01-28 08:34] LABS: Basophils # (A) 0.04 X 10*3/uL (0.00-0.10); Basophils % (A) 0.5 %; Eosinophils # (A) 0.27 X 10*3/uL (0.04-0.35); Eosinophils % (A) 3.1 %; HCT 26.8 % (37.2-46.3); HGB 7.3 g/dL (12.0-15.0); Lymphocytes # (A) 0.85 X 10*3/uL (0.90-5.00); Lymphocytes % (A) 9.8 %; MCH 19.9 pg (27.0-32.0); MCHC 27.2 g/dL (32.0-37.0); MCV 73.2 FL (80.0-97.0); Mean Platelet Volume 9.5 FL (9.5-12.2); Monocytes # (A) 0.59 X 10*3/uL (0.20-1.00); Monocytes % (A) 6.8 %; NRBC Per 100 WBC 0 X 10*3/uL (0.00-0.01); Neutrophils # (A) 6.91 X 10*3/uL (1.80-7.70); Neutrophils % (A) 79.2 %; Platelet Count 355 X 10*3/uL (140-440); RBC 3.66 X 10*6/uL (4.10-5.20); RDW 18.5 % (11.5-14.5); WBC 8.71 X 10*3/uL (4.50-10.00)
[2024-01-28 08:45] LABS: BUN/Creat Ratio 19.25 Ratio (12.00-20.00); Blood Urea Nitrogen 7.7 mg/dL (9.0-27.0); Calcium 8.8 mg/dL (8.7-10.3); Carbon Dioxide 33.8 mmol/L (21.6-31.8); Chloride 98 mmol/L (96-109); Glucose 150 mg/dL (70-110); Potassium 3.6 mmol/L (3.5-5.5); Sodium 143 mmol/L (135-145)
[2024-01-28 11:41] LABS: Glucose,Whole Blood 147 mg/dL (70-110)
--- NOTE | 2024-01-28 12:58 | P.PN ---
Subjective Progress Note Date: 01/28/24 CHIEF COMPLAINT: Postsurgical infected seroma HISTORY OF PRESENT ILLNESS: The patient is a 58-year-old female with pre- existing hernia repair done at 3 months ago October 2023. She developed a large 5+ liters abdominal wall seroma as patient was not following postsurgical instructions including wearing abdominal binder at all times. Incidentally, patient did develop bilateral pulmonary embolisms on her last hospitalization 1 month ago. She returns back to the hospital with tr oubles with breathing including infected postsurgical hematoma. ROS: No reports of nausea and vomiting. No bowel movements. No fevers or chills. No new chest pain. No productive sputum PHYSICAL EXAM: VITAL SIGNS: Reviewed CONSTITUTIONAL: Well developed and in no acute distress. EYES: Conjuctivae without sclera icterus. Extraocular movements grossly intact. HEAD, EARS, NOSE, THROAT: Moist buccal mucosa. Head is atraumatic, normocephalic. Hears conversational speech. No nasal drainage. RESPIRATORY: Non-labored respirations and equal bilateral excursions. CARDIOVASCULAR: Palpable 2+ radial pulses. ABDOMEN: Large subcutaneous seroma over 30 x 15 cm lower abdomen/pannus. No diffuse cellulitis. MUSCULOSKELETAL: No gross deformity of the lower extremities noted. No clubbing. No cyanosis. SKIN: Good skin turgor. Well perfused. NEUROLOGIC: Cranial nerves II through XII grossly intact. No focal or lateralizing signs. PSYCH: Flat affect. Alert to self. CLINICAL LABS: Reviewed. WBC normal. IMAGING: CT of the abdomen pelvis independently reviewed demonstrating large seroma of the lower pannus. Incisional hernia repair intact. Air within the seroma suspicious for infected postsurgical seroma. ASSESSMENT: 1. Postsurgical seroma, infection 2. Bilateral pulmonary emboli 3. Morbid obesity due to excess calories, BMI 42.1 PLAN: 1. Consultation to interventional radiology placed for drainage of large abdominal seroma with cultures 2. Midline placement for IV antibiotic management Objective - Vital Signs Vital signs: Vital Signs Temp 98.1 F 01/28/24 07:56 Pulse 88 01/28/24 12:44 Resp 18 01/28/24 12:44 BP 128/81 01/28/24 07:56 Pulse Ox 95 01/28/24 12:44 FiO2 Intake & Output 01/27/24 01/28/24 01/28/24 18:59 06:59 18:59 Output Total 900 Balance -900 Output: Urine 900 Other: Voiding Method Bedside Commode External Catheter External Catheter # Voids 3 1 # Bowel Movements 1 - Labs CBC & Chem 7: 01/28/24 04:36 01/28/24 04:36 Labs: Abnormal Lab Results - Last 24 Hours (Table) 01/27/24 01/27/24 01/28/24 Range/Units 16:22 19:22 04:36 RBC 3.66 L (4.10-5.20) X 10*6/uL Hgb 7.3 L (12.0-15.0) g/dL Hct 26.8 L (37.2-46.3) % MCV 73.2 L (80.0-97.0) FL MCH 19.9 L (27.0-32.0) pg MCHC 27.2 L (32.0-37.0) g/dL RDW 18.5 H (11.5-14.5) % Immature Gran # 0.05 H (0.00-0.04) X 10*3/uL Lymphocytes # 0.85 L (0.90-5.00) X 10*3/uL Carbon Dioxide (21.6-31.8) mmol/L BUN (9.0-27.0) mg/dL Creatinine (0.6-1.5) mg/dL Glucose (70-110) mg/dL POC Glucose (mg/dL) 202 H 250 H (70-110) mg/dL 01/28/24 01/28/24 01/28/24 Range/Units 04:36 06:06 11:40 RBC (4.10-5.20) X 10*6/uL Hgb (12.0-15.0) g/dL Hct (37.2-46.3) % MCV (80.0-97.0) FL MCH (27.0-32.0) pg MCHC (32.0-37.0) g/dL RDW (11.5-14.5) % Immature Gran # (0.00-0.04) X 10*3/uL Lymphocytes # (0.90-5.00) X 10*3/uL Carbon Dioxide 33.8 H (21.6-31.8) mmol/L BUN 7.7 L (9.0-27.0) mg/dL Creatinine 0.4 L (0.6-1.5) mg/dL Glucose 150 H (70-110) mg/dL POC Glucose (mg/dL) 173 H 147 H (70-110) mg/dL
--- NOTE | 2024-01-28 15:11 | P.PN ---
Subjective Progress Note Date: 01/28/24 Hospital Course: Patient is a 58-year-old female with chronic hypoxic respiratory failure on 3 L, asthma, diabetes mellitus, hypothyroidism, depression and hypertension who presents to the ED for evaluation of right-sided abdominal mass and also erythema. Patient is denying any abdominal pain. Patient states that in October 2023 she had hernia repair done at [facility]. Patient states that last month she came into our hospital and was found to have fluid collection and this was drained by IR. Patient overall is a poor historian. In the ED CT abdomen pelvis showed possibility of gas in the lumen which is new compared to imaging from December 2023 with a new focal herniation over the right lateral aspect. Patient admitted to the medicine service with general surgery consultation. Patient seen by general surgery who recommended IR consult for drainage. Patient also started on IV vancomycin and Unasyn for infected seroma. She is status post midline placement. Subjective: Patient seen and examined at bedside. No acute events overnight. Having bowel movements. Pertinent positives and negatives as discussed above, a complete review of systems was performed and all other systems are negative. Vitals Signs Reviewed. General: [nontoxic], [no distress], [appears at stated age], chronically ill- appearing Derm: [warm], [dry] Head: [atraumatic], [normocephalic], [symmetric] Eyes: [EOMI], [no lid lag], [anicteric sclera] Mouth: [no lip lesion], [mucus membranes moist] Cardiovascular: [S1S2 reg], [no murmur] Lungs: [CTA bilateral], [no rhonchi, no rales] , [no accessory muscle use], supplemental oxygen Abdominal: Right lower quadrant abdominal erythema with palpable mass, no tenderness Ext: [no gross muscle atrophy], [no edema], [no contractures] Neuro: [ CN II-XI grossly intact], [no focal neuro deficits] Psych: [Alert], [oriented], [appropriate affect] Data Reviewed Today: Pertinent Labs: Hemoglobin 7.3, MCV 73.2, platelets 355, creatinine 0.4, blood sugars range between 1 47-2 50 Imaging: No new imaging Assessment and Plan: Suspected infected seroma secondary to recent hernia repair -Was previously drained by IR -General surgery note reviewed, seroma to be drained by interventional radiologyAbilio on hold for today, procedure will be done tomorrow -On vancomycin and Unasyn, seroma fluid to be sent for cultures History of asthma Chronic hypoxic respiratory failure on 3 L -Patient was given a dose of IV Lasix yesterday, currently respiratory function stable -Previously echo completed 1 month ago showed normal LV systolic function -Continue DuoNebs as needed Diabetes mellitus -Sliding scale insulin, monitor for hypoglycemia -Hold oral antidiabetic medications Mild hypokalemia, resolved History of depression -Continue Zoloft 100 mg daily Recent history of acute PE Iron deficiency anemia, chronic -Continue Eliquis 5 mg twice daily, hold for tonight for procedure tomorrow -Previously found to have iron deficiency -Avoid IV iron for now given infected seroma -Started on oral iron -Hemoglobin stable -Outpatient follow-up Hypothyroidism -Continue levothyroxine 175 mcg daily DVT ppx: Eliquis Code status: Full code Anticipated discharge place: Pending clinical course Anticipated discharge time: Pending clinical course Objective - Vital Signs Vital signs: Vital Signs Temp 97.4 F L 01/28/24 13:54 Pulse 91 01/28/24 13:54 Resp 19 01/28/24 13:54 BP 112/72 01/28/24 13:54 Pulse Ox 95 01/28/24 13:54 FiO2 Intake & Output 01/27/24 01/28/24 01/28/24 18:59 06:59 18:59 Output Total 900 Balance -900 Output: Urine 900 Other: Voiding Method Bedside Commode External Catheter External Catheter # Voids 3 1 # Bowel Movements 1 - Labs CBC & Chem 7: 01/28/24 04:36 01/28/24 04:36 Labs: Abnormal Lab Results - Last 24 Hours (Table) 01/27/24 01/27/24 01/28/24 Range/Units 16:22 19:22 04:36 RBC 3.66 L (4.10-5.20) X 10*6/uL Hgb 7.3 L (12.0-15.0) g/dL Hct 26.8 L (37.2-46.3) % MCV 73.2 L (80.0-97.0) FL MCH 19.9 L (27.0-32.0) pg MCHC 27.2 L (32.0-37.0) g/dL RDW 18.5 H (11.5-14.5) % Immature Gran # 0.05 H (0.00-0.04) X 10*3/uL Lymphocytes # 0.85 L (0.90-5.00) X 10*3/uL Carbon Dioxide (21.6-31.8) mmol/L BUN (9.0-27.0) mg/dL Creatinine (0.6-1.5) mg/dL Glucose (70-110) mg/dL POC Glucose (mg/dL) 202 H 250 H (70-110) mg/dL 01/28/24 01/28/24 01/28/24 Range/Units 04:36 06:06 11:40 RBC (4.10-5.20) X 10*6/uL Hgb (12.0-15.0) g/dL Hct (37.2-46.3) % MCV (80.0-97.0) FL MCH (27.0-32.0) pg MCHC (32.0-37.0) g/dL RDW (11.5-14.5) % Immature Gran # (0.00-0.04) X 10*3/uL Lymphocytes # (0.90-5.00) X 10*3/uL Carbon Dioxide 33.8 H (21.6-31.8) mmol/L BUN 7.7 L (9.0-27.0) mg/dL Creatinine 0.4 L (0.6-1.5) mg/dL Glucose 150 H (70-110) mg/dL POC Glucose (mg/dL) 173 H 147 H (70-110) mg/dL
[2024-01-28 16:49] LABS: Glucose,Whole Blood 277 mg/dL (70-110)
[2024-01-28] MEDS: ASCORBIC ACID 500 MG TAB PO SCH (16:51)
[2024-01-28] MEDS: FERROUS SULFATE 325 MG TAB PO SCH (16:51)
[2024-01-28 21:00] LABS: Glucose,Whole Blood 250 mg/dL (70-110)
[2024-01-29 06:07] LABS: Glucose,Whole Blood 182 mg/dL (70-110)
[2024-01-29 08:40] LABS: Basophils # (A) 0.03 X 10*3/uL (0.00-0.10); Basophils % (A) 0.3 %; Eosinophils # (A) 0.28 X 10*3/uL (0.04-0.35); HCT 26.3 % (37.2-46.3); HGB 7.1 g/dL (12.0-15.0); Lymphocytes # (A) 0.86 X 10*3/uL (0.90-5.00); Lymphocytes % (A) 9.3 %; MCH 19.3 pg (27.0-32.0); MCV 71.7 FL (80.0-97.0); Mean Platelet Volume 9.1 FL (9.5-12.2); Monocytes # (A) 0.69 X 10*3/uL (0.20-1.00); Monocytes % (A) 7.5 %; NRBC Per 100 WBC 0 X 10*3/uL (0.00-0.01); Neutrophils # (A) 7.31 X 10*3/uL (1.80-7.70); Neutrophils % (A) 79.1 %; Platelet Count 309 X 10*3/uL (140-440); RBC 3.67 X 10*6/uL (4.10-5.20); RDW 18.6 % (11.5-14.5); WBC 9.24 X 10*3/uL (4.50-10.00)
[2024-01-29 09:04] LABS: Blood Urea Nitrogen 7.9 mg/dL (9.0-27.0); Calcium 8.5 mg/dL (8.7-10.3); Chloride 100 mmol/L (96-109); Glucose 164 mg/dL (70-110); Sodium 141 mmol/L (135-145)
[2024-01-29 11:21] LABS: Glucose,Whole Blood 152 mg/dL (70-110)
--- NOTE | 2024-01-29 11:45 | P.PN ---
Subjective Progress Note Date: 01/29/24 CHIEF COMPLAINT: Postsurgical infected seroma HISTORY OF PRESENT ILLNESS: The patient is a 58-year-old female with pre- existing hernia repair done at [facility] 3 months ago October 2023. She developed a large 5+ liters abdominal wall seroma as patient was not following postsurgical instructions including wearing abdominal binder at all times. Incidentally, patient did develop bilateral pulmonary embolisms on her last hospitalization 1 month ago. She returns back to the hospital with troub les with breathing including infected postsurgical hematoma. Patient continues to report pain right lower abdomen. Denies any nausea or vomiting. Afebrile. WBC 9.24 Hgb 7.1 platelets 309 patient is status post midline placement for IV antibiotics PHYSICAL EXAM: VITAL SIGNS: Reviewed GENERAL: Well-developed in no acute distress. HEENT: No sclera icterus. Extraocular movements grossly intact. Moist buccal mucosa. Head is atraumatic, normocephalic. Hears conversational speech. No nasal dr ainage. NECK: Supple without lymphadenopathy. CHEST: Non-labored respirations and equal bilateral excursions. CARDIOVASCULAR: Palpable 2+ radial pulses. ABDOMEN: Large subcutaneous seroma right lower abdomen with erythema. Tender with palpation MUSCULOSKELETAL: No clubbing or cyanosis. NEUROLOGIC: No focal or lateralizing signs. Cranial nerves II through XII grossly intact. PSYCH: Appropriate affect. Alert and oriented to person, place and time. SKIN: Well perfused. Good skin turgor. ASSESSMENT: 1. Postsurgical seroma, infection 2. Bilateral pulmonary emboli 3. Morbid obesity due to excess calories, BMI 42.1 PLAN: 1. Consultation to interventional radiology placed for drainage of large abdominal seroma with cultures for today. Cannot be completed yesterday due to patient receiving her blood thinner. 2. Continue IV antibiotics Physician Billet Driller note has been reviewed by physician. Signing provider agrees with the documented findings, assessment, and plan of care. Objective - Vital Signs Vital signs: Vital Signs Temp 97.4 F L 01/29/24 07:05 Pulse 90 01/29/24 11:00 Resp 18 01/29/24 07:55 BP 138/85 01/29/24 07:05 Pulse Ox 97 01/29/24 07:05 FiO2 Intake & Output 01/28/24 01/29/24 01/29/24 18:59 06:59 18:59 Intake Total 700 20 Output Total 1425 Balance -725 20 Intake: IV 20 Invasive Line 2 10 Invasive Line 3 10 Oral 700 Output: Urine 1425 Other: Voiding Method External Catheter External Catheter External Catheter # Voids 500 # Bowel Movements 1 - Labs CBC & Chem 7: 01/29/24 04:25 01/29/24 04:25 Labs: Abnormal Lab Results - Last 24 Hours (Table) 01/28/24 01/28/24 01/29/24 Range/Units 16:48 20:58 04:25 RBC 3.67 L (4.10-5.20) X 10*6/uL Hgb 7.1 L (12.0-15.0) g/dL Hct 26.3 L (37.2-46.3) % MCV 71.7 L (80.0-97.0) FL MCH 19.3 L (27.0-32.0) pg MCHC 27.0 L (32.0-37.0) g/dL RDW 18.6 H (11.5-14.5) % MPV 9.1 L (9.5-12.2) FL Immature Gran # 0.07 H (0.00-0.04) X 10*3/uL Lymphocytes # 0.86 L (0.90-5.00) X 10*3/uL Carbon Dioxide (21.6-31.8) mmol/L BUN (9.0-27.0) mg/dL Creatinine (0.6-1.5) mg/dL Glucose (70-110) mg/dL POC Glucose (mg/dL) 277 H 250 H (70-110) mg/dL Calcium (8.7-10.3) mg/dL 01/29/24 01/29/24 01/29/24 Range/Units 04:25 06:05 11:19 RBC (4.10-5.20) X 10*6/uL Hgb (12.0-15.0) g/dL Hct (37.2-46.3) % MCV (80.0-97.0) FL MCH (27.0-32.0) pg MCHC (32.0-37.0) g/dL RDW (11.5-14.5) % MPV (9.5-12.2) FL Immature Gran # (0.00-0.04) X 10*3/uL Lymphocytes # (0.90-5.00) X 10*3/uL Carbon Dioxide 32.0 H (21.6-31.8) mmol/L BUN 7.9 L (9.0-27.0) mg/dL Creatinine 0.5 L (0.6-1.5) mg/dL Glucose 164 H (70-110) mg/dL POC Glucose (mg/dL) 182 H 152 H (70-110) mg/dL Calcium 8.5 L (8.7-10.3) mg/dL
[2024-01-29] MEDS: IPRATROPIUM-ALBUTEROL 3 ML NEB INHALATION SCH (12:09)
--- NOTE | 2024-01-29 14:11 | P.PN ---
Subjective Progress Note Date: 01/29/24 Hospital Course: Patient is a 58-year-old female with chronic hypoxic respiratory failure on 3 L, asthma, diabetes mellitus, hypothyroidism, depression and hypertension who presents to the ED for evaluation of right-sided abdominal mass and also erythema. Patient is denying any abdominal pain. Patient states that in October 2023 she had hernia repair done at [facility]. Patient states that last month she came into our hospital and was found to have fluid collection and this was drained by IR. Patient overall is a poor historian. In the ED CT abdomen pelvis showed possibility of gas in the lumen which is new compared to imaging from December 2023 with a new focal herniation over the right lateral aspect. Patient admitted to the medicine service with general surgery consultation. Patient seen by general surgery who recommended IR consult for drainage. Patient also started on IV vancomycin and Unasyn for infected seroma. She is status post midline placement. Subjective: Patient seen and examined at bedside. No acute events overnight. No new complaints. Pertinent positives and negatives as discussed above, a complete review of systems was performed and all other systems are negative. Vitals Signs Reviewed. General: Nontoxic, no distress, appears at stated age, chronically ill-appearing Derm: Warm, dry Head: Atraumatic, normocephalic, symmetric Eyes: EOMI, no lid lag, anicteric sclera Mouth: No lip lesion, mucus membranes moist Cardiovascular: S1S2 reg, no murmur Lungs: CTA bilateral, no rhonchi, no rales, no accessory muscle use, supplemental oxygen Abdominal: Right lower quadrant abdominal erythema with palpable mass, no tenderness Ext: No gross muscle atrophy, no edema, no contractures Neuro: CN II-XI grossly intact, no focal neuro deficits Psych: Alert, oriented, appropriate affect Data Reviewed Today: Pertinent Labs: Hemoglobin 7.1, creatinine 0.5, glucose range between 1 52-50 Imaging: No new imaging Assessment and Plan: Suspected infected seroma secondary to recent hernia repair -Was previously drained by IR -General surgery note reviewed, seroma to be drained by interventional radiologyAbilio on hold, pending procedure today -On vancomycin and Unasyn, seroma fluid to be sent for cultures History of asthma Chronic hypoxic respiratory failure on 3 L -Was given IV Lasix once, currently respiratory function stable -Previously echo completed 1 month ago showed normal LV systolic function -Continue DuoNebs as needed Diabetes mellitus -Sliding scale insulin, monitor for hypoglycemia -Hold oral antidiabetic medications Mild hypokalemia, resolved History of depression -Continue Zoloft 100 mg daily Recent history of acute PE Iron deficiency anemia, chronic, stable -Continue Eliquis 5 mg twice daily, hold for tonight for procedure tomorrow -Patient did have EGD and colonoscopy during previous admission which did not show any evidence of bleeding. -Avoid IV iron for now given infected seroma -Continue on oral iron -Hemoglobin stable Hypothyroidism -Continue levothyroxine 175 mcg daily DVT ppx: Eliquis Code status: Full code Anticipated discharge place: Pending clinical course Anticipated discharge time: Pending clinical course Objective - Vital Signs Vital signs: Vital Signs Temp 97.4 F L 01/29/24 07:05 Pulse 90 01/29/24 11:00 Resp 18 01/29/24 07:55 BP 138/85 01/29/24 07:05 Pulse Ox 97 01/29/24 07:05 FiO2 Intake & Output 01/28/24 01/29/24 01/29/24 18:59 06:59 18:59 Intake Total 700 220 Output Total 1425 Balance -725 220 Intake: IV 20 Invasive Line 2 10 Invasive Line 3 10 Oral 700 200 Output: Urine 1425 Other: Voiding Method External Catheter External Catheter External Catheter # Voids 500 # Bowel Movements 1 - Labs CBC & Chem 7: 01/29/24 04:25 01/29/24 04:25 Labs: Abnormal Lab Results - Last 24 Hours (Table) 01/28/24 01/28/24 01/29/24 Range/Units 16:48 20:58 04:25 RBC 3.67 L (4.10-5.20) X 10*6/uL Hgb 7.1 L (12.0-15.0) g/dL Hct 26.3 L (37.2-46.3) % MCV 71.7 L (80.0-97.0) FL MCH 19.3 L (27.0-32.0) pg MCHC 27.0 L (32.0-37.0) g/dL RDW 18.6 H (11.5-14.5) % MPV 9.1 L (9.5-12.2) FL Immature Gran # 0.07 H (0.00-0.04) X 10*3/uL Lymphocytes # 0.86 L (0.90-5.00) X 10*3/uL Carbon Dioxide (21.6-31.8) mmol/L BUN (9.0-27.0) mg/dL Creatinine (0.6-1.5) mg/dL Glucose (70-110) mg/dL POC Glucose (mg/dL) 277 H 250 H (70-110) mg/dL Calcium (8.7-10.3) mg/dL 01/29/24 01/29/24 01/29/24 Range/Units 04:25 06:05 11:19 RBC (4.10-5.20) X 10*6/uL Hgb (12.0-15.0) g/dL Hct (37.2-46.3) % MCV (80.0-97.0) FL MCH (27.0-32.0) pg MCHC (32.0-37.0) g/dL RDW (11.5-14.5) % MPV (9.5-12.2) FL Immature Gran # (0.00-0.04) X 10*3/uL Lymphocytes # (0.90-5.00) X 10*3/uL Carbon Dioxide 32.0 H (21.6-31.8) mmol/L BUN 7.9 L (9.0-27.0) mg/dL Creatinine 0.5 L (0.6-1.5) mg/dL Glucose 164 H (70-110) mg/dL POC Glucose (mg/dL) 182 H 152 H (70-110) mg/dL Calcium 8.5 L (8.7-10.3) mg/dL
[2024-01-29 16:54] LABS: Glucose,Whole Blood 271 mg/dL (70-110)
[2024-01-29 20:20] LABS: Glucose,Whole Blood >600 mg/dL (70-110)
[2024-01-29 20:23] LABS: Glucose,Whole Blood 317 mg/dL (70-110)
[2024-01-29] MEDS: VANCOMYCIN TROUGH DUE 1 EACH MISC MISCELLANE ONE (20:28)
[2024-01-30 05:43] LABS: African American GFR (CKD) >90 (>60 ml/min/1.73 sqM); Anion Gap 3 mmol/L; Blood Urea Nitrogen 9 mg/dL (7-17); Calcium 8.4 mg/dL (8.4-10.2); Carbon Dioxide 33 mmol/L (22-30); Chloride 101 mmol/L (98-107); Glucose 171 mg/dL (74-99); Non-African American GFR(CKD) >90 (>60 ml/min/1.73 sqM); Potassium 4.3 mmol/L (3.5-5.1); Sodium 137 mmol/L (137-145)
[2024-01-30 06:10] LABS: Glucose,Whole Blood 219 mg/dL (70-110)
[2024-01-30 08:37] LABS: Basophils # (A) 0.03 X 10*3/uL (0.00-0.10); Basophils % (A) 0.3 %; Eosinophils # (A) 0.29 X 10*3/uL (0.04-0.35); Eosinophils % (A) 3.1 %; HCT 25.8 % (37.2-46.3); Lymphocytes # (A) 0.89 X 10*3/uL (0.90-5.00); Lymphocytes % (A) 9.4 %; MCH 19.4 pg (27.0-32.0); MCHC 27.1 g/dL (32.0-37.0); MCV 71.7 FL (80.0-97.0); Mean Platelet Volume 9.2 FL (9.5-12.2); Monocytes # (A) 0.74 X 10*3/uL (0.20-1.00); Monocytes % (A) 7.8 %; NRBC Per 100 WBC 0 X 10*3/uL (0.00-0.01); Neutrophils # (A) 7.44 X 10*3/uL (1.80-7.70); Neutrophils % (A) 78.6 %; Platelet Count 325 X 10*3/uL (140-440); RDW 18.7 % (11.5-14.5); WBC 9.47 X 10*3/uL (4.50-10.00)
[2024-01-30 11:04] LABS: Glucose,Whole Blood 204 mg/dL (70-110)
--- NOTE | 2024-01-30 11:10 | US ---
EXAMINATION TYPE: US guided soft tissue drainage catheter placement DATE OF EXAM: 01/30/2024 9:59 AM CLINICAL INDICATION:Female, 58 years old with history of Abdominal seroma with drainage tube insertio n; , [facility] COMPARISON: 12/24/2023 TECHNIQUE: Ultrasound guided fluid aspiration. PROCEDURE: Informed consent was obtained. Risks including bleeding, infection, damage to surrounding structures, and the potential need for further procedures as well as benefits were explained. All patient questi ons were answered. Initial ultrasound images were taken which showed safest access to fluid collection located at the an terior abdomen. The patient was prepped and draped. Under sterile technique with 1% lidocaine local anesthesia a 8.5 Yi pigtail catheter was placed ultrasound guidance utilizing trocar technique. The patient tolerated the procedure well without complication. The patient was transferred to [facility] in stable condition. IMPRESSION: Successful ultrasound fluid pigtail catheter placement of the anterior abdominal seroma.
--- NOTE | 2024-01-30 14:51 | P.PN ---
Subjective Progress Note Date: 01/30/24 Hospital Course: Patient is a 58-year-old female with chronic hypoxic respiratory failure on 3 L, asthma, diabetes mellitus, hypothyroidism, depression and hypertension who presents to the ED for evaluation of right-sided abdominal mass and also erythema. Patient is denying any abdominal pain. Patient states that in October 2023 she had hernia repair done at [facility]. Patient states that last month she came into our hospital and was found to have fluid collection and this was drained by IR. Patient overall is a poor historian. In the ED CT abdomen pelvis showed possibility of gas in the lumen which is new compared to imaging from December 2023 with a new focal herniation over the right lateral aspect. Patient admitted to the medicine service with general surgery consultation. Patient seen by general surgery who recommended IR consult for drainage. Patient also started on IV vancomycin and Unasyn for infected seroma. She is status post midline placement. She also had a pigtail catheter placed today Subjective: Patient seen and examined at bedside. No acute events overnight. No new complaints. Pertinent positives and negatives as discussed above, a complete review of systems was performed and all other systems are negative. Vitals Signs Reviewed. General: Nontoxic, no distress, appears at stated age, chronically ill-appearing Derm: Warm, dry Head: Atraumatic, normocephalic, symmetric Eyes: EOMI, no lid lag, anicteric sclera Mouth: No lip lesion, mucus membranes moist Cardiovascular: S1S2 reg, no murmur Lungs: CTA bilateral, no rhonchi, no rales, no accessory muscle use, supplemental oxygen Abdominal: Right lower quadrant abdominal erythema with palpable mass, no tenderness Ext: No gross muscle atrophy, no edema, no contractures Neuro: CN II-XI grossly intact, no focal neuro deficits Psych: Alert, oriented, appropriate affect Data Reviewed Today: Pertinent Labs: Hemoglobin 7, platelet 325, bicarb 33, creatinine 0.45, blood sugars range between 1 71-2 19 Imaging: No new imaging Assessment and Plan: Suspected infected seroma secondary to recent hernia repair status post pigtail catheter placement -It was previously drained during previous admission as well -General surgery following -Pending cultures, may not be infected, continue IV vancomycin and Unasyn, monitor renal function History of asthma Chronic hypoxic respiratory failure on 3 L -Was given IV Lasix once, currently respiratory function stable -Previously echo completed 1 month ago showed normal LV systolic function -Continue DuoNebs as needed Diabetes mellitus -Sliding scale insulin, monitor for hypoglycemia -Hold oral antidiabetic medications Mild hypokalemia, resolved History of depression -Continue Zoloft 100 mg daily Recent history of acute PE Iron deficiency anemia, chronic, stable -Continue Eliquis 5 mg twice daily, hold for tonight for procedure tomorrow -Patient did have EGD and colonoscopy during previous admission which did not show any evidence of bleeding. -Avoid IV iron for now given infected seroma -Continue on oral iron -Hemoglobin stable Hypothyroidism -Continue levothyroxine 175 mcg daily DVT ppx: Eliquis Code status: Full code Anticipated discharge place: Pending clinical course Anticipated discharge time: Pending clinical course Objective - Vital Signs Vital signs: Vital Signs Temp 98.3 F 01/30/24 13:57 Pulse 85 01/30/24 13:57 Resp 18 01/30/24 13:57 BP 119/76 01/30/24 13:57 Pulse Ox 97 01/30/24 13:57 FiO2 Intake & Output 01/29/24 01/30/24 01/30/24 18:59 06:59 18:59 Intake Total 320 Output Total 800 1700 1100 Balance -480 -1700 -1100 Weight 111.13 kg Intake: IV 20 Invasive Line 2 10 Invasive Line 3 10 Oral 300 Output: Drainage 1100 anterior abdomen drainage 1100 tube Urine 800 1700 Other: Voiding Method External Catheter External Catheter # Voids 1 # Bowel Movements 1 - Labs CBC & Chem 7: 01/30/24 04:25 01/30/24 04:25 Labs: Abnormal Lab Results - Last 24 Hours (Table) 01/29/24 01/29/24 01/29/24 Range/Units 16:52 20:18 20:21 RBC (4.10-5.20) X 10*6/uL Hgb (12.0-15.0) g/dL Hct (37.2-46.3) % MCV (80.0-97.0) FL MCH (27.0-32.0) pg MCHC (32.0-37.0) g/dL RDW (11.5-14.5) % MPV (9.5-12.2) FL Immature Gran # (0.00-0.04) X 10*3/uL Lymphocytes # (0.90-5.00) X 10*3/uL Carbon Dioxide (22-30) mmol/L Creatinine (0.52-1.04) mg/dL Glucose (74-99) mg/dL POC Glucose (mg/dL) 271 H >600 H 317 H (70-110) mg/dL 01/30/24 01/30/24 01/30/24 Range/Units 04:25 04:25 06:09 RBC 3.60 L (4.10-5.20) X 10*6/uL Hgb 7.0 L (12.0-15.0) g/dL Hct 25.8 L (37.2-46.3) % MCV 71.7 L (80.0-97.0) FL MCH 19.4 L (27.0-32.0) pg MCHC 27.1 L (32.0-37.0) g/dL RDW 18.7 H (11.5-14.5) % MPV 9.2 L (9.5-12.2) FL Immature Gran # 0.08 H (0.00-0.04) X 10*3/uL Lymphocytes # 0.89 L (0.90-5.00) X 10*3/uL Carbon Dioxide 33 H (22-30) mmol/L Creatinine 0.45 L (0.52-1.04) mg/dL Glucose 171 H (74-99) mg/dL POC Glucose (mg/dL) 219 H (70-110) mg/dL 01/30/24 Range/Units 11:02 RBC (4.10-5.20) X 10*6/uL Hgb (12.0-15.0) g/dL Hct (37.2-46.3) % MCV (80.0-97.0) FL MCH (27.0-32.0) pg MCHC (32.0-37.0) g/dL RDW (11.5-14.5) % MPV (9.5-12.2) FL Immature Gran # (0.00-0.04) X 10*3/uL Lymphocytes # (0.90-5.00) X 10*3/uL Carbon Dioxide (22-30) mmol/L Creatinine (0.52-1.04) mg/dL Glucose (74-99) mg/dL POC Glucose (mg/dL) 204 H (70-110) mg/dL
[2024-01-30 16:16] LABS: Glucose,Whole Blood 220 mg/dL (70-110)
[2024-01-30 20:48] LABS: Glucose,Whole Blood 347 mg/dL (70-110)
--- NOTE | 2024-01-30 21:22 | P.PN ---
Subjective Progress Note Date: 01/30/24 CHIEF COMPLAINT: Postsurgical infected seroma HISTORY OF PRESENT ILLNESS: The patient is a 58-year-old female with pre- existing hernia repair done at [facility] 3 months ago October 2023. She then developed bilateral pulmonary embolism and has been on blood thinners. Patient additional diagnostic studies demonstrated a large seroma. Patient is status post drainage of large seroma. Findings consistent with degenerated hematoma. Patient denies any moderate abdominal pain. ROS: No reports of nausea and vomiting. No fevers or chills. No new chest pain. No productive sputum PHYSICAL EXAM: VITAL SIGNS: Reviewed CONSTITUTIONAL: Well developed and in no acute distress. EYES: Conjuctivae without sclera icterus. Extraocular movements grossly intact. HEAD, EARS, NOSE, THROAT: Moist buccal mucosa. Head is atraumatic, normocephalic. Hears conversational speech. No nasal drainage. RESPIRATORY: Non-labored respirations and equal bilateral excursions. CARDIOVASCULAR: Palpable 2+ radial pulses. ABDOMEN: Resolved lower abdominal swelling for dependence with degenerated seroma in interventional radiology drainage bag. No purulent findings. This is my independent interpretation. MUSCULOSKELETAL: No gross deformity of the lower extremities noted. No clubbing. No cyanosis. SKIN: Good skin turgor. Well perfused. NEUROLOGIC: Cranial nerves II through XII grossly intact. No focal or lateralizing signs. PSYCH: Flat affect. Alert to self. CLINICAL LABS: Reviewed. WBC normal. Hemoglobin low 7.0, anemia REPORT: Over1 L seroma drainage via ultrasound. ASSESSMENT: 1. Postsurgical seroma, infection 2. Bilateral pulmonary emboli 3. Morbid obesity due to excess calories, BMI 42.1 4. Anemia PLAN: 1. Await cultures from seroma 2. Recommend compressive abdominal support to decrease risk for recurrence. 3. Monitor hemoglobin due to degenerated hematoma to seroma Objective - Vital Signs Vital signs: Vital Signs Temp 98.0 F 01/30/24 19:12 Pulse 76 01/30/24 20:02 Resp 16 01/30/24 19:12 BP 112/73 01/30/24 19:12 Pulse Ox 96 01/30/24 19:12 FiO2 Intake & Output 01/30/24 01/30/24 01/31/24 06:59 18:59 06:59 Output Total 1700 1100 Balance -1700 -1100 Output: Drainage 1100 anterior abdomen drainage 1100 tube Urine 1700 Other: Voiding Method External Catheter # Voids 3 - Labs CBC & Chem 7: 01/30/24 04:25 01/30/24 04:25 Labs: Abnormal Lab Results - Last 24 Hours (Table) 01/30/24 01/30/24 01/30/24 Range/Units 04:25 04:25 06:09 RBC 3.60 L (4.10-5.20) X 10*6/uL Hgb 7.0 L (12.0-15.0) g/dL Hct 25.8 L (37.2-46.3) % MCV 71.7 L (80.0-97.0) FL MCH 19.4 L (27.0-32.0) pg MCHC 27.1 L (32.0-37.0) g/dL RDW 18.7 H (11.5-14.5) % MPV 9.2 L (9.5-12.2) FL Immature Gran # 0.08 H (0.00-0.04) X 10*3/uL Lymphocytes # 0.89 L (0.90-5.00) X 10*3/uL Carbon Dioxide 33 H (22-30) mmol/L Creatinine 0.45 L (0.52-1.04) mg/dL Glucose 171 H (74-99) mg/dL POC Glucose (mg/dL) 219 H (70-110) mg/dL 01/30/24 01/30/24 01/30/24 Range/Units 11:02 16:14 20:47 RBC (4.10-5.20) X 10*6/uL Hgb (12.0-15.0) g/dL Hct (37.2-46.3) % MCV (80.0-97.0) FL MCH (27.0-32.0) pg MCHC (32.0-37.0) g/dL RDW (11.5-14.5) % MPV (9.5-12.2) FL Immature Gran # (0.00-0.04) X 10*3/uL Lymphocytes # (0.90-5.00) X 10*3/uL Carbon Dioxide (22-30) mmol/L Creatinine (0.52-1.04) mg/dL Glucose (74-99) mg/dL POC Glucose (mg/dL) 204 H 220 H 347 H (70-110) mg/dL
[2024-01-31 04:12] LABS: Appearance,BF Slightly Cloudy (Clear)
[2024-01-31 05:48] LABS: Glucose,Whole Blood 184 mg/dL (70-110)
[2024-01-31 10:59] LABS: HGB 7.2 g/dL (12.0-15.0); MCH 19.4 pg (27.0-32.0); MCHC 26.7 g/dL (32.0-37.0); MCV 72.8 FL (80.0-97.0); Mean Platelet Volume 9.2 FL (9.5-12.2); NRBC Per 100 WBC 0 X 10*3/uL (0.00-0.01); Platelet Count 339 X 10*3/uL (140-440); RBC 3.71 X 10*6/uL (4.10-5.20); RDW 18.7 % (11.5-14.5); WBC 7.65 X 10*3/uL (4.50-10.00)
[2024-01-31 11:00] LABS: Basophils # (A) 0.04 X 10*3/uL (0.00-0.10); Basophils % (A) 0.5 %; Eosinophils # (A) 0.26 X 10*3/uL (0.04-0.35); Eosinophils % (A) 3.4 %; Lymphocytes % (A) 11.8 %; Monocytes # (A) 0.52 X 10*3/uL (0.20-1.00); Monocytes % (A) 6.8 %; Neutrophils # (A) 5.89 X 10*3/uL (1.80-7.70)
[2024-01-31 11:31] LABS: Blood Urea Nitrogen 10.7 mg/dL (9.0-27.0); Calcium 8.8 mg/dL (8.7-10.3); Carbon Dioxide 32.4 mmol/L (21.6-31.8); Chloride 99 mmol/L (96-109); Glucose 166 mg/dL (70-110); Potassium 4.5 mmol/L (3.5-5.5); Sodium 141 mmol/L (135-145)
[2024-01-31 11:32] LABS: Glucose,Whole Blood 252 mg/dL (70-110)
--- NOTE | 2024-01-31 15:23 | P.PN ---
Subjective Progress Note Date: 01/31/24 Hospital Course: Patient is a 58-year-old female with chronic hypoxic respiratory failure on 3 L, asthma, diabetes mellitus, hypothyroidism, depression and hypertension who presents to the ED for evaluation of right-sided abdominal mass and also erythema. Patient is denying any abdominal pain. Patient states that in October 2023 she had hernia repair done at [facility]. Patient states that last month she came into our hospital and was found to have fluid collection and this was drained by IR. Patient overall is a poor historian. In the ED CT abdomen pelvis showed possibility of gas in the lumen which is new compared to imaging from December 2023 with a new focal herniation over the right lateral aspect. Patient admitted to the medicine service with general surgery consultation. Patient seen by general surgery who recommended IR consult for drainage. Patient also started on IV vancomycin and Unasyn for suspected infected seroma. She is status post midline placement. Status post pigtail catheter placement. Cultures pending. Subjective: Patient seen and examined at bedside. No acute events overnight. No new complaints. Pertinent positives and negatives as discussed above, a complete review of systems was performed and all other systems are negative. Vitals Signs Reviewed. General: Nontoxic, no distress, appears at stated age, chronically ill-appearing Derm: Warm, dry Head: Atraumatic, normocephalic, symmetric Eyes: EOMI, no lid lag, anicteric sclera Mouth: No lip lesion, mucus membranes moist Cardiovascular: S1S2 reg, no murmur Lungs: CTA bilateral, no rhonchi, no rales, no accessory muscle use, supplemental oxygen Abdominal: Right lower quadrant abdominal erythema reduced, pigtail catheter in place. + Serosanguineous fluid. No tenderness Ext: No gross muscle atrophy, no edema, no contractures Neuro: CN II-XI grossly intact, no focal neuro deficits Psych: Alert, oriented, appropriate affect Data Reviewed Today: Pertinent Labs: Hemoglobin 7.2, creatinine 0.5, blood sugars range between 1 66- 2 52 Imaging: No new imaging Assessment and Plan: Suspected infected seroma secondary to recent hernia repair status post pigtail catheter placement -It was previously drained during previous admission as well -General surgery following -Pending cultures, may not be infected, continue IV vancomycin and Unasyn, monitor renal function History of asthma Chronic hypoxic respiratory failure on 3 L -Was given IV Lasix once, currently respiratory function stable -Previously echo completed 1 month ago showed normal LV systolic function -Continue DuoNebs as needed Diabetes mellitus -Sliding scale insulin, monitor for hypoglycemia -Hold oral antidiabetic medications Mild hypokalemia, resolved History of depression -Continue Zoloft 100 mg daily Recent history of acute PE Iron deficiency anemia, chronic, stable -Continue Eliquis 5 mg twice daily -Patient did have EGD and colonoscopy during previous admission which did not show any evidence of bleeding. -Avoid IV iron for now given suspected infected seroma -Continue on oral iron -Hemoglobin stable Hypothyroidism -Continue levothyroxine 175 mcg daily DVT ppx: Eliquis Code status: Full code Anticipated discharge place: Pending clinical course Anticipated discharge time: Pending clinical course Objective - Vital Signs Vital signs: Vital Signs Temp 97.5 F L 01/31/24 13:20 Pulse 86 01/31/24 13:20 Resp 18 01/31/24 13:20 BP 107/70 01/31/24 13:20 Pulse Ox 96 01/31/24 13:20 FiO2 Intake & Output 01/30/24 01/31/24 01/31/24 18:59 06:59 18:59 Output Total 1100 200 Balance -1100 -200 Output: Drainage 1100 200 anterior abdomen drainage 1100 200 tube Other: # Voids 3 1 # Bowel Movements 1 - Labs CBC & Chem 7: 01/31/24 05:59 01/31/24 05:59 Labs: Abnormal Lab Results - Last 24 Hours (Table) 01/30/24 01/30/24 01/30/24 Range/Units 10:30 16:14 20:47 RBC (4.10-5.20) X 10*6/uL Hgb (12.0-15.0) g/dL Hct (37.2-46.3) % MCV (80.0-97.0) FL MCH (27.0-32.0) pg MCHC (32.0-37.0) g/dL RDW (11.5-14.5) % MPV (9.5-12.2) FL Carbon Dioxide (21.6-31.8) mmol/L Creatinine (0.6-1.5) mg/dL BUN/Creatinine Ratio (12.00-20.00) Ratio Glucose (70-110) mg/dL POC Glucose (mg/dL) 220 H 347 H (70-110) mg/dL Fluid Appearance Slightly Cloudy A (Clear) 01/31/24 01/31/24 01/31/24 Range/Units 05:46 05:59 05:59 RBC 3.71 L (4.10-5.20) X 10*6/uL Hgb 7.2 L (12.0-15.0) g/dL Hct 27.0 L (37.2-46.3) % MCV 72.8 L (80.0-97.0) FL MCH 19.4 L (27.0-32.0) pg MCHC 26.7 L (32.0-37.0) g/dL RDW 18.7 H (11.5-14.5) % MPV 9.2 L (9.5-12.2) FL Carbon Dioxide 32.4 H (21.6-31.8) mmol/L Creatinine 0.5 L (0.6-1.5) mg/dL BUN/Creatinine Ratio 21.40 H (12.00-20.00) Ratio Glucose 166 H (70-110) mg/dL POC Glucose (mg/dL) 184 H (70-110) mg/dL Fluid Appearance (Clear) 01/31/24 Range/Units 11:30 RBC (4.10-5.20) X 10*6/uL Hgb (12.0-15.0) g/dL Hct (37.2-46.3) % MCV (80.0-97.0) FL MCH (27.0-32.0) pg MCHC (32.0-37.0) g/dL RDW (11.5-14.5) % MPV (9.5-12.2) FL Carbon Dioxide (21.6-31.8) mmol/L Creatinine (0.6-1.5) mg/dL BUN/Creatinine Ratio (12.00-20.00) Ratio Glucose (70-110) mg/dL POC Glucose (mg/dL) 252 H (70-110) mg/dL Fluid Appearance (Clear)
[2024-01-31 16:37] LABS: Glucose,Whole Blood 218 mg/dL (70-110)
[2024-01-31 20:42] LABS: Glucose,Whole Blood 266 mg/dL (70-110)
--- NOTE | 2024-02-01 04:55 | P.PN ---
Subjective Progress Note Date: 01/31/24 CHIEF COMPLAINT: Postsurgical seroma HISTORY OF PRESENT ILLNESS: The patient is a 58-year-old female with pre- existing hernia repair done at [facility] 3 months ago October 2023. She developed complex postsurgical seroma. She is status post drainage of recurrent postsurgical seroma. She is wearing abdominal binder today. Pain is well-controlled. She is on blood thinners due to bilateral pulmonary embolism. ROS: No reports of nausea and vomiting. No fevers or chills. No new chest pa in. No productive sputum PHYSICAL EXAM: VITAL SIGNS: Reviewed CONSTITUTIONAL: Well developed and in no acute distress. EYES: Conjuctivae without sclera icterus. Extraocular movements grossly intact. HEAD, EARS, NOSE, THROAT: Moist buccal mucosa. Head is atraumatic, normocephalic. Hears conversational speech. No nasal drainage. RESPIRATORY: Non-labored respirations and equal bilateral excursions. CARDIOVASCULAR: Palpable 2+ radial pulses. ABDOMEN: Interventional radiology drainage bag with degraded hematoma. Fluid is clear. Abdomen obese. Nontender. MUSCULOSKELETAL: No gross deformity of the lower extremities noted. No clubbing. No cyanosis. SKIN: Good skin turgor. Well perfused. NEUROLOGIC: Cranial nerves II through XII grossly intact. No focal or lateralizing signs. PSYCH: Flat affect. Alert to self. CLINICAL LABS: Reviewed. WBC normal. Hemoglobin low 7.0, anemia. Hemoglobin of 7.2 today. MICRO: Pathology pending. ASSESSMENT: 1. Postsurgical seroma 2. Bilateral pulmonary emboli 3. Morbid obesity due to excess calories, BMI 42.1 4. Anemia PLAN: 1. Continue compresses abdominal support except for showering. 2. Patient should follow-up with surgeon at [facility] upon discharge due to recurrent postoperative seroma 3. Antibiotic management advised. Infectious disease consulted. Objective - Vital Signs Vital signs: Vital Signs Temp 97.5 F L 01/31/24 13:20 Pulse 72 01/31/24 16:30 Resp 18 01/31/24 13:20 BP 107/70 01/31/24 13:20 Pulse Ox 96 01/31/24 13:20 FiO2 Intake & Output 01/30/24 01/31/24 01/31/24 18:59 06:59 18:59 Output Total 1100 300 Balance -1100 -300 Output: Drainage 1100 300 anterior abdomen drainage 1100 300 tube Other: # Voids 3 1 1 # Bowel Movements 1 - Labs CBC & Chem 7: 01/31/24 05:59 01/31/24 05:59 Labs: Abnormal Lab Results - Last 24 Hours (Table) 01/30/24 01/30/24 01/31/24 Range/Units 10:30 20:47 05:46 RBC (4.10-5.20) X 10*6/uL Hgb (12.0-15.0) g/dL Hct (37.2-46.3) % MCV (80.0-97.0) FL MCH (27.0-32.0) pg MCHC (32.0-37.0) g/dL RDW (11.5-14.5) % MPV (9.5-12.2) FL Carbon Dioxide (21.6-31.8) mmol/L Creatinine (0.6-1.5) mg/dL BUN/Creatinine Ratio (12.00-20.00) Ratio Glucose (70-110) mg/dL POC Glucose (mg/dL) 347 H 184 H (70-110) mg/dL Fluid Appearance Slightly Cloudy A (Clear) 01/31/24 01/31/24 01/31/24 Range/Units 05:59 05:59 11:30 RBC 3.71 L (4.10-5.20) X 10*6/uL Hgb 7.2 L (12.0-15.0) g/dL Hct 27.0 L (37.2-46.3) % MCV 72.8 L (80.0-97.0) FL MCH 19.4 L (27.0-32.0) pg MCHC 26.7 L (32.0-37.0) g/dL RDW 18.7 H (11.5-14.5) % MPV 9.2 L (9.5-12.2) FL Carbon Dioxide 32.4 H (21.6-31.8) mmol/L Creatinine 0.5 L (0.6-1.5) mg/dL BUN/Creatinine Ratio 21.40 H (12.00-20.00) Ratio Glucose 166 H (70-110) mg/dL POC Glucose (mg/dL) 252 H (70-110) mg/dL Fluid Appearance (Clear) 01/31/24 Range/Units 16:36 RBC (4.10-5.20) X 10*6/uL Hgb (12.0-15.0) g/dL Hct (37.2-46.3) % MCV (80.0-97.0) FL MCH (27.0-32.0) pg MCHC (32.0-37.0) g/dL RDW (11.5-14.5) % MPV (9.5-12.2) FL Carbon Dioxide (21.6-31.8) mmol/L Creatinine (0.6-1.5) mg/dL BUN/Creatinine Ratio (12.00-20.00) Ratio Glucose (70-110) mg/dL POC Glucose (mg/dL) 218 H (70-110) mg/dL Fluid Appearance (Clear)
[2024-02-01 06:24] LABS: Glucose,Whole Blood 194 mg/dL (70-110)
[2024-02-01 07:36] LABS: African American GFR (CKD) >90 (>60 ml/min/1.73 sqM); Anion Gap 4 mmol/L; Blood Urea Nitrogen 12 mg/dL (7-17); Calcium 8.7 mg/dL (8.4-10.2); Carbon Dioxide 36 mmol/L (22-30); Chloride 99 mmol/L (98-107); Glucose 177 mg/dL (74-99); Magnesium 2.2 mg/dL (1.6-2.3); Non-African American GFR(CKD) >90 (>60 ml/min/1.73 sqM); Potassium 4.5 mmol/L (3.5-5.1); Sodium 139 mmol/L (137-145)
[2024-02-01 12:17] LABS: Glucose,Whole Blood 292 mg/dL (70-110)
--- NOTE | 2024-02-01 14:28 | P.PN ---
Subjective Progress Note Date: 02/01/24 Hospital Course: Patient is a 58-year-old female with chronic hypoxic respiratory failure on 3 L, asthma, diabetes mellitus, hypothyroidism, depression and hypertension who presents to the ED for evaluation of right-sided abdominal mass and also erythema. Patient is denying any abdominal pain. Patient states that in October 2023 she had hernia repair done at [facility]. Patient states that last month she came into our hospital and was found to have fluid collection and this was drained by IR. Patient overall is a poor historian. In the ED CT abdomen pelvis showed possibility of gas in the lumen which is new compared to imaging from December 2023 with a new focal herniation over the right lateral aspect. Patient admitted to the medicine service with general surgery consultation. Patient seen by general surgery who recommended IR consult for drainage. Patient also started on IV vancomycin and Unasyn for suspected infected seroma. She is status post midline placement. Status post pigtail catheter placement. Cultures negative growth to date. ID has been consulted. Subjective: Patient seen and examined at bedside. No acute events overnight. No new complaints. Pertinent positives and negatives as discussed above, a complete review of systems was performed and all other systems are negative. Vitals Signs Reviewed. General: Nontoxic, no distress, appears at stated age, chronically ill-appearing Derm: Warm, dry Head: Atraumatic, normocephalic, symmetric Eyes: EOMI, no lid lag, anicteric sclera Mouth: No lip lesion, mucus membranes moist Cardiovascular: S1S2 reg, no murmur Lungs: CTA bilateral, no rhonchi, no rales, no accessory muscle use, supplement al oxygen Abdominal: Right lower quadrant abdominal erythema reduced, pigtail catheter in place. + Serosanguineous fluid. No tenderness Ext: No gross muscle atrophy, no edema, no contractures Neuro: CN II-XI grossly intact, no focal neuro deficits Psych: Alert, oriented, appropriate affect Data Reviewed Today: Pertinent Labs: Hemoglobin creatinine 0.45, blood sugars range between 1 77-2 92, magnesium 2.0 Imaging: No new imaging Assessment and Plan: Suspected infected seroma secondary to recent hernia repair status post pigtail catheter placement -It was previously drained during previous admission as well -General surgery following, recommending outpatient follow-up with surgeon at [place] -Cultures negative growth to date, may not be infected, continue IV vancomycin and Unasyn, monitor renal function -Appreciate recommendations from ID History of asthma Chronic hypoxic respiratory failure on 3 L -Was given IV Lasix once, currently respiratory function stable -Previously echo completed 1 month ago showed normal LV systolic function -Continue DuoNebs as needed Diabetes mellitus -Sliding scale insulin, monitor for hypoglycemia -Hold oral antidiabetic medications Mild hypokalemia, resolved History of depression -Continue Zoloft 100 mg daily Recent history of acute PE Iron deficiency anemia, chronic, stable -Continue Eliquis 5 mg twice daily -Patient did have EGD and colonoscopy during previous admission which did not show any evidence of bleeding. -Avoid IV iron for now given suspected infected seroma -Continue on oral iron -Hemoglobin stable Hypothyroidism -Continue levothyroxine 175 mcg daily DVT ppx: Eliquis Code status: Full code Anticipated discharge place: Pending clinical course Anticipated discharge time: Pending clinical course Objective - Vital Signs Vital signs: Vital Signs Temp 98.7 F 02/01/24 07:32 Pulse 72 02/01/24 13:01 Resp 19 02/01/24 07:32 BP 110/70 02/01/24 07:32 Pulse Ox 97 02/01/24 09:11 FiO2 Intake & Output 01/31/24 02/01/24 02/01/24 18:59 06:59 18:59 Output Total 300 120 Balance -300 -120 Output: Drainage 300 120 anterior abdomen drainage 300 120 tube Other: Voiding Method Bedside Commode Diaper # Voids 1 3 2 # Bowel Movements 1 1 - Labs CBC & Chem 7: 01/31/24 05:59 02/01/24 06:48 Labs: Abnormal Lab Results - Last 24 Hours (Table) 01/31/24 01/31/24 02/01/24 Range/Units 16:36 20:41 06:22 Carbon Dioxide (22-30) mmol/L Creatinine (0.52-1.04) mg/dL Glucose (74-99) mg/dL POC Glucose (mg/dL) 218 H 266 H 194 H (70-110) mg/dL 02/01/24 02/01/24 Range/Units 06:48 12:14 Carbon Dioxide 36 H (22-30) mmol/L Creatinine 0.45 L (0.52-1.04) mg/dL Glucose 177 H (74-99) mg/dL POC Glucose (mg/dL) 292 H (70-110) mg/dL Microbiology - Last 24 Hours (Table) 01/30/24 10:30 Gram Stain - Preliminary Ascites Fluid Body Fluid Culture - Preliminary
[2024-02-01 17:10] LABS: Glucose,Whole Blood 221 mg/dL (70-110)
[2024-02-01 20:09] LABS: Glucose,Whole Blood 278 mg/dL (70-110)
--- NOTE | 2024-02-01 21:25 | P.PN ---
Subjective Progress Note Date: 02/01/24 Principal diagnosis: Abdominal wall seroma Patient doing well today. Says her pain is improved. Cultures from the aspiration negative for growth. She is afebrile. White blood cell count recently normal. There was talk of possible discharge today however it sounds like they are waiting for final cultures. Objective - Vital Signs Vital signs: Vital Signs Temp 98.6 F 02/01/24 15:19 Pulse 76 02/01/24 21:22 Resp 18 02/01/24 15:19 BP 114/71 02/01/24 15:19 Pulse Ox 95 02/01/24 15:19 FiO2 Intake & Output 02/01/24 02/01/24 02/02/24 06:59 18:59 06:59 Output Total 120 75 Balance -120 -75 Output: Drainage 120 75 anterior abdomen drainage 120 75 tube Other: Voiding Method Bedside Commode Diaper # Voids 3 2 # Bowel Movements 1 - Exam Abdomen: Soft, previous mass mostly resolved, drain in place, mild edema and slight erythema skin laterally right mid abdomen - Labs CBC & Chem 7: 01/31/24 05:59 02/01/24 06:48 Labs: Abnormal Lab Results - Last 24 Hours (Table) 02/01/24 02/01/24 02/01/24 Range/Units 06:22 06:48 12:14 Carbon Dioxide 36 H (22-30) mmol/L Creatinine 0.45 L (0.52-1.04) mg/dL Glucose 177 H (74-99) mg/dL POC Glucose (mg/dL) 194 H 292 H (70-110) mg/dL 02/01/24 02/01/24 Range/Units 17:09 20:07 Carbon Dioxide (22-30) mmol/L Creatinine (0.52-1.04) mg/dL Glucose (74-99) mg/dL POC Glucose (mg/dL) 221 H 278 H (70-110) mg/dL Microbiology - Last 24 Hours (Table) 01/30/24 10:30 Gram Stain - Preliminary Ascites Fluid Body Fluid Culture - Preliminary Assessment and Plan (1) Abdominal wall abscess Narrative/Plan: Patient doing better after recent drainage large seroma. Patient still with mild erythema abdominal wall on the right-hand side. Some edema there. Possible mild cellulitis. Continue antibiotics. Await final cultures. Con tinue regular diet. Current Visit: Yes Status: Acute Code(s): L02.211 - CUTANEOUS ABSCESS OF ABDOMINAL WALL SNOMED Code(s): 56904665
--- NOTE | 2024-02-01 23:48 | P.CONS ---
History of Present Illness - Reason for Consult Consult date: 02/01/24 Antibiotic management Requesting physician: Tina Lerner - Chief Complaint Abdominal pain and swelling x few days - History of Present Illness Patient is a 58-year-old female with a past medical history significant for diabetes mellitus osteoarthritis PE ovarian cyst and depression patient was brought to the hospital about a week ago on 01/25/2024 for evaluation of right-sided abdominal pain along with a palpable mass patient's symptoms started 2 days before presentation to the hospital and came because of worsening pain in size of the right lower quadrant mass patient did not have any high- grade fever or any chills no nausea vomiting and no diarrhea patient describes the pain to be mostly dull aching sharp moderate intensity without any radiation patient on presentation to the hospital was afebrile and no fever have recorded subsequently patient was nontachycardic hypertensive mildly hypoxic currently on 3 to nasal cannula oxygen patient did have a normal white count on admission and white count remains to be normal creatinine has been normal patient did have a CT of abdominal pelvis and it shows large anterior abdominal wall subcutaneous fluid collection mild subcutaneous gas in the lumen gas in the completed 12/21/2023 concerning for seroma with a possible superimposed infection patient did have a ultrasound-guided aspiration of this area on 01/30/2024 fluid and did have a RBC of 20,000 WBC was 7670 cultures are currently pending patient has been empirically treated with the Unasyn infectious was consulted today for further management of antibiotic therapy Review of Systems Positive point and negatives has been mentioned in the HPI, complete review of systems was performed and all other systems are negative Past Medical History Past Medical History: Asthma, Diabetes Mellitus, Osteoarthritis (OA), Pulmonary Embolus (PE), Thyroid Disorder Additional Past Medical History / Comment(s): ovarian cysts, PE 12/20/23 History of Any Multi-Drug Resistant Organisms: None Reported Past Surgical History: Hernia Repair Additional Past Surgical History / Comment(s): ovarian cyst removal Past Anesthesia/Blood Transfusion Reactions: No Reported Reaction, Motion Sickness Past Psychological History: Depression Smoking Status: Never smoker Past Alcohol Use History: Occasional Past Drug Use History: None Reported - Past Family History Sister(s) Family Medical History: Cancer Additional Family Medical History / Comment(s): breast cancer Medications and Allergies Home Medications Medication Instructions Recorded Confirmed Type Albuterol Nebulized [Ventolin 2.5 mg INHALATION RT-Q2H PRN 04/11/24 05/18/24 History Nebulized] Ergocalciferol (Vitamin D2) 1,250 mcg PO Q7D 12/20/23 01/26/24 History [Drisdol (50,000 Iu)] Furosemide [Lasix] 20 mg PO DAILY 12/20/23 01/26/24 History Glimepiride [Amaryl] 4 mg PO DAILY 12/20/23 01/26/24 History Levothyroxine Sodium [Synthroid] 175 mcg PO DAILY 12/20/23 01/26/24 History Sertraline [Zoloft] 100 mg PO DAILY 12/20/23 01/26/24 History metFORMIN HCL ER [Glucophage XR] 1,000 mg PO [id number] 12/20/23 01/26/24 History Acetaminophen Tab [Tylenol] 650 mg PO Q6HR PRN tab 12/27/23 01/26/24 Rx Ferrous Sulfate [Iron (65 MG 325 mg PO W/LUNCH #30 tab 12/27/23 01/26/24 Rx Elemental)] Pantoprazole [Protonix] 40 mg PO BID #60 tab 12/27/23 01/26/24 Rx Apixaban [Eliquis] 5 mg PO BID 01/22/24 01/26/24 History Potassium Chloride ER [K-Dur 20] 20 meq PO DAILY #7 tab 01/22/24 01/26/24 Rx Amoxic-Pot Clav 875-125Mg 1 tab PO Q12HR 10 Days #20 tab 02/08/24 Rx [Augmentin 875-125] Allergies Allergy/AdvReac Type Severity Reaction Status Date / Time No Known Allergies Allergy Verified 01/26/24 17:21 Physical Exam Vitals: Vital Signs Temp Pulse Pulse Pulse Pulse Resp BP 02/01/24 09:21 74 02/01/24 09:11 02/01/24 09:10 71 02/01/24 07:32 98.7 F 76 19 110/70 02/01/24 01:37 98.3 F 80 17 101/64 01/31/24 21:13 76 01/31/24 21:03 75 01/31/24 19:25 97.4 F L 88 17 115/73 01/31/24 16:30 72 01/31/24 16:20 72 01/31/24 13:20 97.5 F L 86 18 107/70 Pulse Ox 02/01/24 09:21 02/01/24 09:11 97 02/01/24 09:10 02/01/24 07:32 96 02/01/24 01:37 100 01/31/24 21:13 01/31/24 21:03 01/31/24 19:25 95 01/31/24 16:30 01/31/24 16:20 01/31/24 13:20 96 Intake and Output 01/31/24 02/01/24 02/01/24 22:59 06:59 14:59 Output Total 100 120 Balance -100 -120 Output: Drainage 100 120 anterior abdomen drainage 100 120 tube Other: Voiding Method Bedside Commode Diaper # Voids 1 3 2 # Bowel Movements 1 GENERAL DESCRIPTION: Middle-aged female lying in bed, no distress. No tachypnea or accessory muscle of respiration use. HEENT: Shows Pallor , no scleral icterus. Oral mucous membrane is dry. No pharyngeal erythema or thrush NECK: Trachea central, no thyromegaly. LUNGS: Unlabored breathing. Clear to auscultation anteriorly. No wheeze or crackle. HEART: S1, S2, regular rate and rhythm. No loud murmur ABDOMEN: Soft, right lower abdominal area did have an area of hardness redness did have a drainage catheter with some serous drainage EXTREMITIES: No edema of feet. SKIN: No rash, no masses palpable. NEUROLOGICAL: The patient is awake, alert, oriented x3, mood and affect normal. Results CBC & Chem 7: 02/07/24 11:56 02/07/24 11:56 Labs: Abnormal Lab Results - Last 24 Hours (Table) 01/31/24 01/31/24 02/01/24 Range/Units 16:36 20:41 06:22 Carbon Dioxide (22-30) mmol/L Creatinine (0.52-1.04) mg/dL Glucose (74-99) mg/dL POC Glucose (mg/dL) 218 H 266 H 194 H (70-110) mg/dL 02/01/24 Range/Units 06:48 Carbon Dioxide 36 H (22-30) mmol/L Creatinine 0.45 L (0.52-1.04) mg/dL Glucose 177 H (74-99) mg/dL POC Glucose (mg/dL) (70-110) mg/dL Microbiology - Last 24 Hours (Table) 01/30/24 10:30 Gram Stain - Preliminary Ascites Fluid Body Fluid Culture - Preliminary Assessment and Plan (1) Abdominal wall abscess Status: Acute Code(s): L02.211 - CUTANEOUS ABSCESS OF ABDOMINAL WALL SNOMED Code(s): 29978066 (2) Abdominal wall cellulitis Status: Acute Code(s): L03.311 - CELLULITIS OF ABDOMINAL WALL SNOMED Code(s): 44873135 (3) Abdominal wall seroma Status: Acute Code(s): S30.1XXA - CONTUSION OF ABDOMINAL WALL, INITIAL ENCOUNTER SNOMED Code(s): 544065034 Plan: 1patient presented to hospital with right lower quad abdominal pain and swelling in this patient has been diagnosed with the recurrent abdominal wall seroma status post ultrasound-guided aspiration fluid was mostly bloody as has 20,000 WBC and only 7000 white cells cultures so far pending patient not running any fever white count is normal clinic suspicion low for an infected seroma or abscess 2-May continue with the Unasyn while waiting for the culture to finalize however if the culture remained negative either discontinue antibiotics or short course of oral Augmentin on discharge and apparently patient has been referred to [place] for her recurrent abdominal wall seroma as documented by surgical note We will follow on clinical condition and cultures to further adjust medication if needed Thank you for this consultation we will follow the patient along with you Dictation was produced using [employer] dictation software. please excuse any grammatical, word or spelling errors. Time with Patient: Greater than 30
[2024-02-02 06:11] LABS: Glucose,Whole Blood 201 mg/dL (70-110)
[2024-02-02] MEDS: VANCOMYCIN TROUGH DUE 1 EACH MISC MISCELLANE ONE (08:56)
[2024-02-02 09:01] LABS: African American GFR (CKD) >90 (>60 ml/min/1.73 sqM); Anion Gap 4 mmol/L; Blood Urea Nitrogen 12 mg/dL (7-17); Calcium 8.9 mg/dL (8.4-10.2); Carbon Dioxide 36 mmol/L (22-30); Chloride 98 mmol/L (98-107); Glucose 210 mg/dL (74-99); Non-African American GFR(CKD) >90 (>60 ml/min/1.73 sqM); Potassium 4.5 mmol/L (3.5-5.1); Sodium 138 mmol/L (137-145)
[2024-02-02 09:02] LABS: African American GFR (CKD) >90 (>60 ml/min/1.73 sqM); Non-African American GFR(CKD) >90 (>60 ml/min/1.73 sqM)
[2024-02-02 11:47] LABS: Glucose,Whole Blood 228 mg/dL (70-110)
--- NOTE | 2024-02-02 12:21 | US ---
EXAMINATION TYPE: US abdomen limited DATE OF EXAM: 02/02/2024 COMPARISON: NONE CLINICAL INDICATION: Female, 58 years old with history of assess for seroma; seroma RLQ patient has d rainage tube in since Sun. TECHNIQUE: FINDINGS: Complex area still visualize near drainage tube largest pocket 16.5 cm. IMPRESSION: 1. Large complex collection right lower quadrant remains present
--- NOTE | 2024-02-02 13:46 | P.PN ---
Subjective Progress Note Date: 02/02/24 Hospital Course: Patient is a 58-year-old female with chronic hypoxic respiratory failure on 3 L, asthma, diabetes mellitus, hypothyroidism, depression and hypertension who presents to the ED for evaluation of right-sided abdominal mass and also erythema. Patient is denying any abdominal pain. Patient states that in October 2023 she had hernia repair done at [facility]. Patient states that last month she came into our hospital and was found to have fluid collection and this was drained by IR. Patient overall is a poor historian. In the ED CT abdomen pelvis showed possibility of gas in the lumen which is new compared to imaging from December 2023 with a new focal herniation over the right lateral aspect. Patient admitted to the medicine service with general surgery consultation. Patient seen by general surgery who recommended IR consult for drainage. Patient also started on IV vancomycin and Unasyn for suspected infected seroma. She is status post midline placement. Status post pigtail catheter placement. Cultures negative growth to date. ID has been consulted. A bd US showed large complex collection right lower quadrant. Subjective: Patient seen and examined at bedside. No acute events overnight. No new complaints. Pertinent positives and negatives as discussed above, a complete review of systems was performed and all other systems are negative. Vitals Signs Reviewed. General: Nontoxic, no distress, appears at stated age, chronically ill-appearing Derm: Warm, dry Head: Atraumatic, normocephalic, symmetric Eyes: EOMI, no lid lag, anicteric sclera Mouth: No lip lesion, mucus membranes moist Cardiovascular: S1S2 reg, no murmur Lungs: CTA bilateral, no rhonchi, no rales, no accessory muscle use, supplemental oxygen Abdominal: Right lower quadrant abdominal erythema reduced, pigtail catheter in place. + Serosanguineous fluid. No tenderness Ext: No gross muscle atrophy, no edema, no contractures Neuro: CN II-XI grossly intact, no focal neuro deficits Psych: Alert, oriented, appropriate affect Data Reviewed Today: Pertinent Labs: Creatinine 0.49, BS 201-278 Imaging: No new imaging Assessment and Plan: Suspected infected seroma secondary to recent hernia repair status post pigtail catheter placement -It was previously drained during previous admission as well -General surgery following, recommending outpatient follow-up with surgeon at [place] -Cultures negative growth to date, continue IV Unasyn, IV vancomycin discontinued -Discussed management with ID, possibly may not be infected -repeat US, shows large complex fluid collection - may need further draining, possibly outpatient, awaiting further surgery recommendations History of asthma Chronic hypoxic respiratory failure on 3 L -Was given IV Lasix once, currently respiratory function stable -Previously echo completed 1 month ago showed normal LV systolic function -Continue DuoNebs as needed Diabetes mellitus -Sliding scale insulin, monitor for hypoglycemia -Hold oral antidiabetic medications Mild hypokalemia, resolved History of depression -Continue Zoloft 100 mg daily Recent history of acute PE Iron deficiency anemia, chronic, stable -Continue Eliquis 5 mg twice daily -Patient did have EGD and colonoscopy during previous admission which did not show any evidence of bleeding. -Avoid IV iron for now given suspected infected seroma -Continue on oral iron -Hemoglobin stable Hypothyroidism -Continue levothyroxine 175 mcg daily DVT ppx: Eliquis Code status: Full code Anticipated discharge place: Pending clinical course Anticipated discharge time: Pending clinical course Objective - Vital Signs Vital signs: Vital Signs Temp 97.7 F 02/02/24 07:10 Pulse 86 02/02/24 11:56 Resp 18 02/02/24 07:10 BP 115/69 02/02/24 07:10 Pulse Ox 97 02/02/24 07:53 FiO2 Intake & Output 02/01/24 02/02/24 02/02/24 18:59 06:59 18:59 Intake Total 400 Output Total 75 1900 Balance -75 -1900 400 Intake: Oral 400 Output: Drainage 75 50 anterior abdomen drainage 75 50 tube Urine 1850 Other: Voiding Method Bedside Commode Bedside Commode External Catheter # Voids 2 # Bowel Movements 1 - Labs CBC & Chem 7: 01/31/24 05:59 02/02/24 08:25 Labs: Abnormal Lab Results - Last 24 Hours (Table) 02/01/24 02/01/24 02/02/24 Range/Units 17:09 20:07 06:09 Carbon Dioxide (22-30) mmol/L Creatinine (0.52-1.04) mg/dL Glucose (74-99) mg/dL POC Glucose (mg/dL) 221 H 278 H 201 H (70-110) mg/dL 02/02/24 02/02/24 02/02/24 Range/Units 08:25 08:25 11:45 Carbon Dioxide 36 H (22-30) mmol/L Creatinine 0.48 L 0.49 L (0.52-1.04) mg/dL Glucose 210 H (74-99) mg/dL POC Glucose (mg/dL) 228 H (70-110) mg/dL Microbiology - Last 24 Hours (Table) 01/30/24 10:30 Anaerobic Culture - Preliminary Ascites Fluid 01/30/24 10:30 Gram Stain - Preliminary Ascites Fluid Body Fluid Culture - Preliminary
[2024-02-02 16:27] LABS: Glucose,Whole Blood 328 mg/dL (70-110)
--- NOTE | 2024-02-02 16:48 | P.PN ---
Subjective patient seen and evaluated bedside. No acute events overnight. Patient admits to some superficial abdominal pain Objective - Vital Signs Vital signs: Vital Signs Temp 98.1 F 02/02/24 14:00 Pulse 89 02/02/24 15:33 Resp 17 02/02/24 14:00 BP 108/68 02/02/24 14:00 Pulse Ox 99 02/02/24 14:00 FiO2 Intake & Output 02/01/24 02/02/24 02/02/24 18:59 06:59 18:59 Intake Total 400 Output Total 75 1900 1700 Balance -75 -1900 -1300 Intake: Oral 400 Output: Drainage 75 50 anterior abdomen drainage 75 50 tube Urine 1850 1700 Other: Voiding Method Bedside Commode Bedside Commode External Catheter # Voids 2 # Bowel Movements 1 - Exam general no acute distress alert and oriented 3 Cardiovascular regular rate rhythm Pulmonary nonlabored breathing Abdomen is soft, Kyrie, erythematous - Labs CBC & Chem 7: 01/31/24 05:59 02/02/24 08:25 Labs: Abnormal Lab Results - Last 24 Hours (Table) 02/01/24 02/01/24 02/02/24 Range/Units 17:09 20:07 06:09 Carbon Dioxide (22-30) mmol/L Creatinine (0.52-1.04) mg/dL Glucose (74-99) mg/dL POC Glucose (mg/dL) 221 H 278 H 201 H (70-110) mg/dL 02/02/24 02/02/24 02/02/24 Range/Units 08:25 08:25 11:45 Carbon Dioxide 36 H (22-30) mmol/L Creatinine 0.48 L 0.49 L (0.52-1.04) mg/dL Glucose 210 H (74-99) mg/dL POC Glucose (mg/dL) 228 H (70-110) mg/dL 02/02/24 Range/Units 16:26 Carbon Dioxide (22-30) mmol/L Creatinine (0.52-1.04) mg/dL Glucose (74-99) mg/dL POC Glucose (mg/dL) 328 H (70-110) mg/dL Microbiology - Last 24 Hours (Table) 01/30/24 10:30 Anaerobic Culture - Preliminary Ascites Fluid 01/30/24 10:30 Gram Stain - Preliminary Ascites Fluid Body Fluid Culture - Preliminary Assessment and Plan Assessment: 58-year-old female with postsurgical seroma and associated cellulitis Microbiology reviewed demonstrating no anaerobes/Gram stain organisms Antibiotics per ID We will continue to assess wound daily Stable for discharge from surgical standpoint Time with Patient: Greater than 30
[2024-02-02 20:36] LABS: Glucose,Whole Blood 264 mg/dL (70-110)
--- NOTE | 2024-02-02 20:37 | P.PN ---
Subjective Progress Note Date: 02/02/24 Principal diagnosis: Reason for follow-up is right lower quadrant seroma Patient is a 58-year-old female with a past medical history significant for diabetes mellitus osteoarthritis PE ovarian cyst and depression patient was brought to the hospital for evaluation of right-sided abdominal pain palpable mass has been diagnosed with the seroma status post ultrasound-guided drainage. On today's evaluation that is 02/02/2024,the patient remains to be afebrile, patient is on room air not requiring supplemental oxygen and denies any shortness of breath no chest pain or cough.Patient denies having any nausea or vomiting, abdominal pain slightly decreased intensity no worsening drainage. Patient did have a creatinine 0.49 Vanco trough is 11.7 fluid culture so far pending Objective - Vital Signs Vital signs: Vital Signs Temp 98.1 F 02/02/24 01:14 Pulse 86 02/02/24 01:14 Resp 18 02/02/24 01:14 BP 108/66 02/02/24 01:14 Pulse Ox 91 L 02/02/24 01:14 FiO2 Intake & Output 02/01/24 02/02/24 02/02/24 18:59 06:59 18:59 Output Total 75 1900 Balance -75 -1900 Output: Drainage 75 50 anterior abdomen drainage 75 50 tube Urine 1850 Other: Voiding Method Bedside Commode # Voids 2 # Bowel Movements 1 - Labs CBC & Chem 7: 01/31/24 05:59 02/02/24 08:25 Labs: Abnormal Lab Results - Last 24 Hours (Table) 02/01/24 02/01/24 02/01/24 Range/Units 12:14 17:09 20:07 POC Glucose (mg/dL) 292 H 221 H 278 H (70-110) mg/dL 02/02/24 Range/Units 06:09 POC Glucose (mg/dL) 201 H (70-110) mg/dL Microbiology - Last 24 Hours (Table) 01/30/24 10:30 Anaerobic Culture - Preliminary Ascites Fluid 01/30/24 10:30 Gram Stain - Preliminary Ascites Fluid Body Fluid Culture - Preliminary Assessment and Plan (1) Abdominal wall seroma Current Visit: Yes Status: Acute Code(s): S30.1XXA - CONTUSION OF ABDOMINAL WALL, INITIAL ENCOUNTER SNOMED Code(s): 493815679 (2) Abdominal wall cellulitis Current Visit: Yes Status: Acute Code(s): L03.311 - CELLULITIS OF ABDOMINAL WALL SNOMED Code(s): 48935635 Plan: 1patient presented to hospital with right lower quad abdominal pain and swelling in this patient has been diagnosed with the recurrent abdominal wall seroma status post ultrasound-guided aspiration fluid was mostly bloody as has 20,000 WBC and only 7000 white cells cultures so far pending patient not running any fever white count is normal clinic suspicion low for an infected seroma or abscess 2-patient is covered with Unasyn however discontinue vancomycin await repeat ultrasound-overall decrease in the size or resolution of the seroma may be able to discharge home discussed with the admitting team Dictation was produced using [employer] dictation software. please excuse any grammatical, word or spelling errors. Time with Patient: Less than 30
[2024-02-03 06:00] LABS: Glucose,Whole Blood 249 mg/dL (70-110)
--- NOTE | 2024-02-03 11:00 | P.PN ---
Subjective Progress Note Date: 02/03/24 Principal diagnosis: Abdominal wall seroma Patient has no new complaints. Still having mild soreness right side of abdomen. Ultrasound was obtained showing persistent fluid collection. Drain remains in place. Cultures negative. Objective - Vital Signs Vital signs: Vital Signs Temp 98.6 F 02/03/24 07:50 Pulse 88 02/03/24 07:50 Resp 19 02/03/24 07:50 BP 112/66 02/03/24 07:50 Pulse Ox 95 02/03/24 07:50 FiO2 Intake & Output 02/02/24 02/03/24 02/03/24 18:59 06:59 18:59 Intake Total 400 Output Total 1800 1950 Balance -1400 -1949 Intake: Oral 400 Output: Drainage 100 50 anterior abdomen drainage 100 50 tube Urine 1700 1900 Other: Voiding Method Bedside Commode Bedside Commode Bedside Commode External Catheter External Catheter # Bowel Movements 1 - Exam Abdomen: Soft, nondistended, mild tenderness and slight erythema lateral right upper quadrant - Labs CBC & Chem 7: 01/31/24 05:59 02/02/24 08:25 Labs: Abnormal Lab Results - Last 24 Hours (Table) 02/02/24 02/02/24 02/02/24 Range/Units 11:45 16:26 20:32 POC Glucose (mg/dL) 228 H 328 H 264 H (70-110) mg/dL 02/03/24 Range/Units 05:58 POC Glucose (mg/dL) 249 H (70-110) mg/dL Microbiology - Last 24 Hours (Table) 01/30/24 10:30 Gram Stain - Preliminary Ascites Fluid Body Fluid Culture - Preliminary Assessment and Plan (1) Abdominal wall abscess Narrative/Plan: 58-year-old female with persistent seroma. Will check CT abdomen to better evaluate. If seroma still there after recent percutaneous drainage will plan o pen drainage. Current Visit: Yes Status: Acute Code(s): L02.211 - CUTANEOUS ABSCESS OF ABDOMINAL WALL SNOMED Code(s): 82004077
[2024-02-03 11:33] LABS: Glucose,Whole Blood 253 mg/dL (70-110)
--- NOTE | 2024-02-03 13:13 | P.PN ---
Subjective Progress Note Date: 02/03/24 Hospital Course: Patient is a 58-year-old female with chronic hypoxic respiratory failure on 3 L, asthma, diabetes mellitus, hypothyroidism, depression and hypertension who presents to the ED for evaluation of right-sided abdominal mass and also erythema. Patient is denying any abdominal pain. Patient states that in October 2023 she had hernia repair done at [facility]. Patient states that last month she came into our hospital and was found to have fluid collection and this was drained by IR. Patient overall is a poor historian. In the ED CT abdomen pelvis showed possibility of gas in the lumen which is new compared to imaging from December 2023 with a new focal herniation over the right lateral aspect. Patient admitted to the medicine service with general surgery consultation. Patient seen by general surgery who recommended IR consult for drainage. Patient also started on IV vancomycin and Unasyn for suspected infected seroma. She is status post midline placement. Status post pigtail catheter placement. Cultures negative growth to date. ID has been consulted. A bd US showed large complex collection right lower quadrant. Subjective: Patient seen and examined at bedside. No acute events overnight. No new complaints. Pertinent positives and negatives as discussed above, a complete review of systems was performed and all other systems are negative. Vitals Signs Reviewed. General: Nontoxic, no distress, appears at stated age, chronically ill-appearing Derm: Warm, dry Head: Atraumatic, normocephalic, symmetric Eyes: EOMI, no lid lag, anicteric sclera Mouth: No lip lesion, mucus membranes moist Cardiovascular: S1S2 reg, no murmur Lungs: CTA bilateral, no rhonchi, no rales, no accessory muscle use, supplemental oxygen Abdominal: Right lower quadrant abdominal erythema reduced, pigtail catheter in place. + Serosanguineous fluid. No tenderness Ext: No gross muscle atrophy, no edema, no contractures Neuro: CN II-XI grossly intact, no focal neuro deficits Psych: Alert, oriented, appropriate affect Data Reviewed Today: Pertinent Labs: Creatinine 249-264 Imaging: No new imaging Assessment and Plan: Large seroma secondary to recent hernia repair status post pigtail catheter placement -Discussed with general surgery, may need drainage of large complex fluid collection -Cultures negative growth to date, continue IV Unasyn -IV vancomycin discontinued -ID following History of asthma Chronic hypoxic respiratory failure on 3 L -Was given IV Lasix once, currently respiratory function stable -Previously echo completed 1 month ago showed normal LV systolic function -Continue DuoNebs as needed Diabetes mellitus -Sliding scale insulin, monitor for hypoglycemia -Hold oral antidiabetic medications Mild hypokalemia, resolved History of depression -Continue Zoloft 100 mg daily Recent history of acute PE Iron deficiency anemia, chronic, stable -Continue Eliquis 5 mg twice daily -Patient did have EGD and colonoscopy during previous admission which did not show any evidence of bleeding. -Avoid IV iron for now given suspected infected seroma -Continue on oral iron -Hemoglobin stable Hypothyroidism -Continue levothyroxine 175 mcg daily DVT ppx: Eliquis Code status: Full code Anticipated discharge place: Pending clinical course Anticipated discharge time: Pending clinical course Objective - Vital Signs Vital signs: Vital Signs Temp 98.6 F 02/03/24 07:50 Pulse 82 02/03/24 11:52 Resp 19 02/03/24 07:50 BP 112/66 02/03/24 07:50 Pulse Ox 95 02/03/24 07:50 FiO2 Intake & Output 02/02/24 02/03/24 02/03/24 18:59 06:59 18:59 Intake Total 400 Output Total 1800 1950 Balance -1400 -1950 Intake: Oral 400 Output: Drainage 100 50 anterior abdomen drainage 100 50 tube Urine 1700 1900 Other: Voiding Method Bedside Commode Bedside Commode Bedside Commode External Catheter External Catheter # Bowel Movements 1 - Labs CBC & Chem 7: 01/31/24 05:59 02/02/24 08:25 Labs: Abnormal Lab Results - Last 24 Hours (Table) 02/02/24 02/02/24 02/03/24 Range/Units 16:26 20:32 05:58 POC Glucose (mg/dL) 328 H 264 H 249 H (70-110) mg/dL 02/03/24 Range/Units 11:32 POC Glucose (mg/dL) 253 H (70-110) mg/dL Microbiology - Last 24 Hours (Table) 01/30/24 10:30 Gram Stain - Preliminary Ascites Fluid Body Fluid Culture - Preliminary
--- NOTE | 2024-02-03 14:13 | CT ---
EXAMINATION TYPE: CT abdomen pelvis wo con DATE OF EXAM: 02/03/2024 COMPARISON: 01/25/2024 INDICATION: Follow-up seroma DLP: 1653.8 mGycm, Automated exposure control for dose reduction was used. CONTRAST: 0 mL of Isovue 300. Study performed without Oral Contrast TECHNIQUE: Axial images were obtained from above the diaphragm to the pubic rami in the axial plane a t 5 mm thick sections. Reconstructed images are reviewed on the computer in the coronal plane. FINDINGS: Limited CT sections are obtained the lung bases. Left lower lobe consolidation with air bronchograms appears stable.. CT ABDOMEN: Liver: Normal Spleen: Normal Pancreas: Normal Adrenal glands: The adrenal glands are normal. Gallbladder: Decompressed Kidneys: No masses are evident. No hydronephrosis is present. No cysts are present. No renal stone s are evident. Some malrotation of the right kidney may be present, rosey Aorta: Vascular calcification is within the aorta. Minimal Inferior vena cava: Normal. CT PELVIS: Anterior to the abdominal wall within the pelvis is a large fluid collection with scattere d air-fluid levels. Drainage catheter is present. This measures 21.4 x 0.7 cm in size compatible with a large hematoma or abscess. Continued follow-up is recommended. Loops of bowel within the abdomen and pelvis are normal. This study is without neural contrast li miting bowel evaluation. Appendix: Normal as visualized. Urinary bladder: Normal. Genitourinary structures: Uterus and adnexa appear normal Osseous structures: No suspicious lytic or sclerotic lesions. Degenerative disc changes are present L 5-S1. IMPRESSION: 1. Persistent large hematoma or abscess anterior subcutaneous tissues at the level of the pelvis. Th is is diminished in size from comparison. Drainage catheter is present.
[2024-02-03 17:05] LABS: Glucose,Whole Blood 180 mg/dL (70-110)
[2024-02-03 20:16] LABS: Glucose,Whole Blood 245 mg/dL (70-110)
[2024-02-04 05:05] LABS: Anisocytosis Slight; Basophils % (A) 0 %; Eosinophils # (A) 0.3 k/uL (0-0.7); Eosinophils % (A) 4 %; HCT 28.5 % (34.0-46.0); HGB 8.1 gm/dL (11.4-16.0); Hypochromasia Marked; Lymphocytes % (A) 14 %; MCH 20.2 pg (25.0-35.0); MCHC 28.4 g/dL (31.0-37.0); Mean Platelet Volume 7.1; Microcytosis Marked; Monocytes # (A) 0.4 k/uL (0-1.0); Monocytes % (A) 6 %; Neutrophils # (A) 5.4 k/uL (1.3-7.7); Neutrophils % (A) 74 %; Platelet Count 304 k/uL (150-450); RBC 4.01 m/uL (3.80-5.40); RDW 18.1 % (11.5-15.5); WBC 7.4 k/uL (3.8-10.6)
[2024-02-04 05:15] LABS: African American GFR (CKD) >90 (>60 ml/min/1.73 sqM); Non-African American GFR(CKD) >90 (>60 ml/min/1.73 sqM)
[2024-02-04 05:16] LABS: African American GFR (CKD) >90 (>60 ml/min/1.73 sqM); Anion Gap 6 mmol/L; Blood Urea Nitrogen 15 mg/dL (7-17); Calcium 9.1 mg/dL (8.4-10.2); Carbon Dioxide 36 mmol/L (22-30); Chloride 96 mmol/L (98-107); Glucose 142 mg/dL (74-99); Non-African American GFR(CKD) >90 (>60 ml/min/1.73 sqM); Potassium 4.5 mmol/L (3.5-5.1); Sodium 138 mmol/L (137-145)
[2024-02-04 06:06] LABS: Glucose,Whole Blood 169 mg/dL (70-110)
--- NOTE | 2024-02-04 09:50 | P.PN ---
Subjective Progress Note Date: 02/04/24 Principal diagnosis: Abdominal wall seroma Patient's repeat CAT scan yesterday shows loculated fluid collection with air bubbles. She was scheduled for surgery this morning however she apparently had her Eliquis last night. Surgery was postponed till tomorrow. Otherwise feels about the same. Shortness of breath is stable. Objective - Vital Signs Vital signs: Vital Signs Temp 98.4 F 02/04/24 07:23 Pulse 88 02/04/24 07:47 Resp 17 02/04/24 07:23 BP 112/70 02/04/24 07:23 Pulse Ox 97 02/04/24 07:23 FiO2 Intake & Output 02/03/24 02/04/24 02/04/24 18:59 06:59 18:59 Output Total 1360 140 Balance -1360 -140 Output: Drainage 60 40 anterior abdomen drainage 60 40 tube Urine 1300 100 Other: Voiding Method Bedside Commode Bedside Commode External Catheter External Catheter # Bowel Movements 1 - Exam Abdomen: Soft, nondistended, mild erythema right mid abdomen, mild swelling - Labs CBC & Chem 7: 02/04/24 04:34 02/04/24 04:34 Labs: Abnormal Lab Results - Last 24 Hours (Table) 02/03/24 02/03/24 02/03/24 Range/Units 11:32 17:04 20:15 Hgb (11.4-16.0) gm/dL Hct (34.0-46.0) % MCV (80.0-100.0) fL MCH (25.0-35.0) pg MCHC (31.0-37.0) g/dL RDW (11.5-15.5) % Chloride (98-107) mmol/L Carbon Dioxide (22-30) mmol/L Glucose (74-99) mg/dL POC Glucose (mg/dL) 253 H 180 H 245 H (70-110) mg/dL 02/04/24 02/04/24 02/04/24 Range/Units 04:34 04:34 06:05 Hgb 8.1 L (11.4-16.0) gm/dL Hct 28.5 L (34.0-46.0) % MCV 71.0 L (80.0-100.0) fL MCH 20.2 L (25.0-35.0) pg MCHC 28.4 L (31.0-37.0) g/dL RDW 18.1 H (11.5-15.5) % Chloride 96 L (98-107) mmol/L Carbon Dioxide 36 H (22-30) mmol/L Glucose 142 H (74-99) mg/dL POC Glucose (mg/dL) 169 H (70-110) mg/dL Microbiology - Last 24 Hours (Table) 01/30/24 10:30 Anaerobic Culture - Final Ascites Fluid 01/30/24 10:30 Gram Stain - Final Ascites Fluid Body Fluid Culture - Final Assessment and Plan (1) Abdominal wall abscess Narrative/Plan: Patient with persistent seroma despite IR drainage. CAT scan reviewed. Will proceed with open drainage tomorrow. Plan packing of the wound following that. Current Visit: Yes Status: Acute Code(s): L02.211 - CUTANEOUS ABSCESS OF ABDOMINAL WALL SNOMED Code(s): 16507119
--- NOTE | 2024-02-04 11:36 | P.PN ---
Subjective Progress Note Date: 02/04/24 Hospital Course: Patient is a 58-year-old female with chronic hypoxic respiratory failure on 3 L, asthma, diabetes mellitus, hypothyroidism, depression and hypertension who presents to the ED for evaluation of right-sided abdominal mass and also erythema. Patient is denying any abdominal pain. Patient states that in October 2023 she had hernia repair done at [facility]. Patient states that last month she came into our hospital and was found to have fluid collection and this was drained by IR. Patient overall is a poor historian. In the ED CT abdomen pelvis showed possibility of gas in the lumen which is new compared to imaging from December 2023 with a new focal herniation over the right lateral aspect. Patient admitted to the medicine service with general surgery consultation. Patient seen by general surgery who recommended IR consult for drainage. Patient also started on IV vancomycin and Unasyn for suspected infected seroma. She is status post midline placement. Status post pigtail catheter placement. Cultures negative growth to date. ID has been consulted. A bd US showed large complex collection right lower quadrant. CT surgery also shows persistent large hematoma or abscess anterior subcutaneous tissue at the level of the pelvis. Surgery planning for open drainage tomorrow Subjective: Patient seen and examined at bedside. No acute events overnight. No new complaints. Pertinent positives and negatives as discussed above, a complete review of sy stems was performed and all other systems are negative. Vitals Signs Reviewed. General: Nontoxic, no distress, appears at stated age, chronically ill-appearing Derm: Warm, dry Head: Atraumatic, normocephalic, symmetric Eyes: EOMI, no lid lag, anicteric sclera Mouth: No lip lesion, mucus membranes moist Cardiovascular: S1S2 reg, no murmur Lungs: CTA bilateral, no rhonchi, no rales, no accessory muscle use, supplemental oxygen Abdominal: Right lower quadrant abdominal erythema reduced, pigtail catheter in place. + Serosanguineous fluid. No tenderness Ext: No gross muscle atrophy, no edema, no contractures Neuro: CN II-XI grossly intact, no focal neuro deficits Psych: Alert, oriented, appropriate affect Data Reviewed Today: Pertinent Labs: WBC 7.4, hemoglobin 8.1, creatinine 0.59, blood sugars range between 1 42-45 Imaging: CT abdomen pelvis shows persistent large hematoma or abscess anterior subcutaneous tissue at the level of the pelvis. Assessment and Plan: Large seroma secondary to recent hernia repair status post pigtail catheter placement -Surgery note reviewed, pending open drainage, -Cultures negative growth to date, continue IV Unasyn -ID following History of asthma Chronic hypoxic respiratory failure on 3 L -Was given IV Lasix once, currently respiratory function stable -Previously echo completed 1 month ago showed normal LV systolic function -Continue DuoNebs as needed Diabetes mellitus -Sliding scale insulin, monitor for hypoglycemia -Hold oral antidiabetic medications Mild hypokalemia, resolved History of depression -Continue Zoloft 100 mg daily Recent history of acute PE Iron deficiency anemia, chronic, stable -Eliquis discontinued for surgery tomorrow, ICD in place -Patient did have EGD and colonoscopy during previous admission which did not show any evidence of bleeding. -Avoid IV iron for now given suspected infected seroma -Continue on oral iron -Hemoglobin stable Hypothyroidism -Continue levothyroxine 175 mcg daily DVT ppx: SCD Code status: Full code Anticipated discharge place: Pending clinical course Anticipated discharge time: Pending clinical course Objective - Vital Signs Vital signs: Vital Signs Temp 98.4 F 02/04/24 07:23 Pulse 88 02/04/24 07:47 Resp 17 02/04/24 07:23 BP 112/70 02/04/24 07:23 Pulse Ox 97 02/04/24 07:23 FiO2 Intake & Output 02/03/24 02/04/24 02/04/24 18:59 06:59 18:59 Output Total 1360 140 500 Balance -1360 -140 -500 Output: Drainage 60 40 anterior abdomen drainage 60 40 tube Urine 1300 100 500 Other: Voiding Method Bedside Commode Bedside Commode Bedside Commode External Catheter External Catheter External Catheter # Bowel Movements 1 1 - Labs CBC & Chem 7: 02/04/24 04:34 02/04/24 04:34 Labs: Abnormal Lab Results - Last 24 Hours (Table) 02/03/24 02/03/24 02/04/24 Range/Units 17:04 20:15 04:34 Hgb 8.1 L (11.4-16.0) gm/dL Hct 28.5 L (34.0-46.0) % MCV 71.0 L (80.0-100.0) fL MCH 20.2 L (25.0-35.0) pg MCHC 28.4 L (31.0-37.0) g/dL RDW 18.1 H (11.5-15.5) % Chloride (98-107) mmol/L Carbon Dioxide (22-30) mmol/L Glucose (74-99) mg/dL POC Glucose (mg/dL) 180 H 245 H (70-110) mg/dL 02/04/24 02/04/24 Range/Units 04:34 06:05 Hgb (11.4-16.0) gm/dL Hct (34.0-46.0) % MCV (80.0-100.0) fL MCH (25.0-35.0) pg MCHC (31.0-37.0) g/dL RDW (11.5-15.5) % Chloride 96 L (98-107) mmol/L Carbon Dioxide 36 H (22-30) mmol/L Glucose 142 H (74-99) mg/dL POC Glucose (mg/dL) 169 H (70-110) mg/dL Microbiology - Last 24 Hours (Table) 01/30/24 10:30 Anaerobic Culture - Final Ascites Fluid 01/30/24 10:30 Gram Stain - Final Ascites Fluid Body Fluid Culture - Final
[2024-02-04 11:50] LABS: Glucose,Whole Blood 200 mg/dL (70-110)
[2024-02-04 16:28] LABS: Glucose,Whole Blood 301 mg/dL (70-110)
[2024-02-04 21:31] LABS: Glucose,Whole Blood 221 mg/dL (70-110)
[2024-02-05 06:34] LABS: Glucose,Whole Blood 162 mg/dL (70-110)
--- NOTE | 2024-02-05 08:13 | P.PN ---
Subjective Progress Note Date: 02/03/24 Principal diagnosis: Reason for follow-up is right lower quadrant seroma Patient is a 58-year-old female with a past medical history significant for diabetes mellitus osteoarthritis PE ovarian cyst and depression patient was brought to the hospital for evaluation of right-sided abdominal pain palpable mass has been diagnosed with the seroma status post ultrasound-guided drainage. On today's evaluation that is 02/03/2024, the patient continues to be afebrile, the patient is on room air and breathing comfortably, the Pt denies having any chest pain or cough, the patient right lower quadrant abdominal pain slightly decreased in intensity no nausea vomiting or diarrhea. No lab draw today Objective - Vital Signs Vital signs: Vital Signs Temp 98.6 F 02/03/24 07:50 Pulse 88 02/03/24 07:50 Resp 19 02/03/24 07:50 BP 112/66 02/03/24 07:50 Pulse Ox 95 02/03/24 07:50 FiO2 Intake & Output 02/02/24 02/03/24 02/03/24 18:59 06:59 18:59 Intake Total 400 Output Total 1800 1950 Balance -1400 -1949 Intake: Oral 400 Output: Drainage 100 50 anterior abdomen drainage 100 50 tube Urine 1700 1900 Other: Voiding Method Bedside Commode Bedside Commode Bedside Commode External Catheter External Catheter # Bowel Movements 1 - Exam GENERAL DESCRIPTION: Middle-aged female lying in bed in no distress RESPIRATORY SYSTEM: Unlabored breathing , decreased breath sounds at bases HEART: S1 S2 regular rate and rhythm , ABDOMEN: Soft , no tenderness EXTREMITIES: No edema feet - Labs CBC & Chem 7: 02/04/24 04:34 02/04/24 04:34 Labs: Abnormal Lab Results - Last 24 Hours (Table) 02/02/24 02/02/24 02/02/24 Range/Units 11:45 16:26 20:32 POC Glucose (mg/dL) 228 H 328 H 264 H (70-110) mg/dL 02/03/24 Range/Units 05:58 POC Glucose (mg/dL) 249 H (70-110) mg/dL Microbiology - Last 24 Hours (Table) 01/30/24 10:30 Gram Stain - Preliminary Ascites Fluid Body Fluid Culture - Preliminary Assessment and Plan (1) Abdominal wall seroma Current Visit: Yes Status: Acute Code(s): S30.1XXA - CONTUSION OF ABDOMINAL WALL, INITIAL ENCOUNTER SNOMED Code(s): 826283536 (2) Abdominal wall cellulitis Current Visit: Yes Status: Acute Code(s): L03.311 - CELLULITIS OF ABDOMINAL WALL SNOMED Code(s): 27402996 Plan: 1patient presented to hospital with right lower quad abdominal pain and swelling in this patient has been diagnosed with the recurrent abdominal wall seroma status post ultrasound-guided aspiration fluid was mostly bloody as has 20,000 WBC and only 7000 white cells cultures so far pending patient not running any fever white count is normal clinic suspicion low for an infected seroma or abscess 2-patient is covered with Unasyn, repeat CT has been ordered results will be followed and monitor clinical course closely Dictation was produced using [employer] dictation software. please excuse any grammatical, word or spelling errors. Time with Patient: Less than 30
--- NOTE | 2024-02-05 08:14 | P.PN ---
Subjective Progress Note Date: 02/04/24 Principal diagnosis: Reason for follow-up is right lower quadrant seroma Patient is a 58-year-old female with a past medical history significant for diabetes mellitus osteoarthritis PE ovarian cyst and depression patient was brought to the hospital for evaluation of right-sided abdominal pain palpable mass has been diagnosed with the seroma status post ultrasound-guided drainage. On today's evaluation that is 02/04/2024, Patient is afebrile patient is currently on room air and denies having any shortness of breath, the patient denies any chest pain or cough, the patient denies any nausea vomiting denies any pain to the right lower quadrant abdominal area still have the drainage catheter with output. Patient white count is 7.4, creatinine 0.[address] shows large right lower quadrant abdominal fluid collection with air bubbles Objective - Vital Signs Vital signs: Vital Signs Temp 98.2 F 02/04/24 13:45 Pulse 86 02/04/24 16:32 Resp 17 02/04/24 13:45 BP 100/64 02/04/24 13:45 Pulse Ox 95 02/04/24 13:45 FiO2 Intake & Output 02/03/24 02/04/24 02/04/24 18:59 06:59 18:59 Output Total 1360 140 540 Balance -1360 -140 -540 Output: Drainage 60 40 40 anterior abdomen drainage 60 40 40 tube Urine 1300 100 500 Other: Voiding Method Bedside Commode Bedside Commode Bedside Commode External Catheter External Catheter External Catheter # Bowel Movements 1 1 - Exam GENERAL DESCRIPTION: Middle-aged female lying in bed in no distress RESPIRATORY SYSTEM: Unlabored breathing , decreased breath sounds at bases HEART: S1 S2 regular rate and rhythm , ABDOMEN: Soft , no tenderness EXTREMITIES: No edema feet - Labs CBC & Chem 7: 02/04/24 04:34 02/04/24 04:34 Labs: Abnormal Lab Results - Last 24 Hours (Table) 02/03/24 02/04/24 02/04/24 Range/Units 20:15 04:34 04:34 Hgb 8.1 L (11.4-16.0) gm/dL Hct 28.5 L (34.0-46.0) % MCV 71.0 L (80.0-100.0) fL MCH 20.2 L (25.0-35.0) pg MCHC 28.4 L (31.0-37.0) g/dL RDW 18.1 H (11.5-15.5) % Chloride 96 L (98-107) mmol/L Carbon Dioxide 36 H (22-30) mmol/L Glucose 142 H (74-99) mg/dL POC Glucose (mg/dL) 245 H (70-110) mg/dL 02/04/24 02/04/24 02/04/24 Range/Units 06:05 11:48 16:27 Hgb (11.4-16.0) gm/dL Hct (34.0-46.0) % MCV (80.0-100.0) fL MCH (25.0-35.0) pg MCHC (31.0-37.0) g/dL RDW (11.5-15.5) % Chloride (98-107) mmol/L Carbon Dioxide (22-30) mmol/L Glucose (74-99) mg/dL POC Glucose (mg/dL) 169 H 200 H 301 H (70-110) mg/dL Microbiology - Last 24 Hours (Table) 01/30/24 10:30 Anaerobic Culture - Final Ascites Fluid 01/30/24 10:30 Gram Stain - Final Ascites Fluid Body Fluid Culture - Final Assessment and Plan (1) Abdominal wall seroma Current Visit: Yes Status: Acute Code(s): S30.1XXA - CONTUSION OF ABDOMINAL WALL, INITIAL ENCOUNTER SNOMED Code(s): 416305441 (2) Abdominal wall cellulitis Current Visit: Yes Status: Acute Code(s): L03.311 - CELLULITIS OF ABDOMINAL WALL SNOMED Code(s): 85744795 Plan: 1patient presented to hospital with right lower quad abdominal pain and swelling in this patient has been diagnosed with the recurrent abdominal wall seroma status post ultrasound-guided aspiration fluid was mostly bloody as has 20,000 WBC and only 7000 white cells cultures so far pending patient not running any fever white count is normal clinic suspicion low for an infected seroma or abscess 2-patient repeat CT did shows evidence of large fluid collection with air- bubble concerning for possible infection repeat drainage procedure has been scheduled for tomorrow morning continue with Unasyn antibiotic will adjust and follow on the basis of the culture report Dictation was produced using [employer] software. please excuse any grammatical, word or spelling errors. Time with Patient: Less than 30
[2024-02-05 11:59] LABS: Glucose,Whole Blood 152 mg/dL (70-110)
[2024-02-05] MEDS: LACTATED RINGERS 1,000 ML IV ONE (12:15)
[2024-02-05] MEDS: BUDESONIDE 0.5 MG/2 ML NEBU INHALATION STA (12:30)
[2024-02-05 12:31] LABS: Glucose,Whole Blood 133 mg/dL (70-110)
[2024-02-05] MEDS: HEPARIN SODIUM,PORCINE 5,000 UNIT/ML 1 ML VIAL SQ ONE (12:47)
[2024-02-05] MEDS ORDERED: LIDOCAINE 1% INJ 10MG/ML (20 ML MDV) ONE (12:51)
[2024-02-05] MEDS ORDERED: MIDAZOLAM 2 MG/2 ML VIAL ONE (12:51)
[2024-02-05] MEDS ORDERED: PROPOFOL 10 MG/ML 20 ML VIAL IV ONE (12:51)
[2024-02-05] MEDS ORDERED: fentaNYL (PF) 50 MCG/ML 2 ML AMP ONE (12:51)
[2024-02-05] MEDS ORDERED: PHENYLEPHRINE 10 MG/ML VIAL ONE (12:51)
[2024-02-05] MEDS ORDERED: VASOPRESSIN 20 UNIT/ML 1 ML VIAL ONE (12:51)
[2024-02-05] MEDS: CEFAZOLIN IV ONE (12:56)
[2024-02-05] MEDS: SODIUM CHLORIDE 0.9% IV ONE (12:56)
--- NOTE | 2024-02-05 14:14 | P.PN ---
Subjective Progress Note Date: 02/05/24 Hospital Course: Patient is a 58-year-old female with chronic hypoxic respiratory failure on 3 L, asthma, diabetes mellitus, hypothyroidism, depression and hypertension who presents to the ED for evaluation of right-sided abdominal mass and also erythema. Patient is denying any abdominal pain. Patient states that in October 2023 she had hernia repair done at [facility]. Patient states that last month she came into our hospital and was found to have fluid collection and this was drained by IR. Patient overall is a poor historian. In the ED CT abdomen pelvis showed possibility of gas in the lumen which is new compared to imaging from December 2023 with a new focal herniation over the right lateral aspect. Patient admitted to the medicine service with general surgery consultation. Patient seen by general surgery who recommended IR consult for drainage. Patient also started on IV vancomycin and Unasyn for suspected infected seroma. She is status post midline placement. Status post pigtail catheter placement. Cultures negative growth to date. ID has been consulted. A bd US showed large complex collection right lower quadrant. CT surgery also shows persistent large hematoma or abscess anterior subcutaneous tissue at the level of the pelvis. Surgical open drainage yesterday. Subjective: Patient seen and examined at bedside. No acute events overnight. No new complaints. Pertinent positives and negatives as discussed above, a complete review of systems was performed and all other systems are negative. Vitals Signs Reviewed. General: Nontoxic, no distress, appears at stated age, chronically ill-appearing Derm: Warm, dry Head: Atraumatic, normocephalic, symmetric Eyes: EOMI, no lid lag, anicteric sclera Mouth: No lip lesion, mucus membranes moist Cardiovascular: S1S2 reg, no murmur Lungs: CTA bilateral, no rhonchi, no rales, no accessory muscle use, supplemental oxygen Abdominal: Right lower quadrant abdominal erythema reduced, pigtail catheter in place. + Serosanguineous fluid. No tenderness Ext: No gross muscle atrophy, no edema, no contractures Neuro: CN II-XI grossly intact, no focal neuro deficits Psych: Alert, oriented, appropriate affect Data Reviewed Today: Pertinent Labs: Blood sugars range between 1 33-1 62 Imaging: No new imaging Assessment and Plan: Large seroma secondary to recent hernia repair status post pigtail catheter placement -Surgery following, plan for open drainage today -Cultures negative growth to date, continue IV Unasyn -ID following -Cultures from open drainage pending -Repeat CBC and BMP tomorrow History of asthma Chronic hypoxic respiratory failure on 3 L -Was given IV Lasix once, currently respiratory function stable -Previously echo completed 1 month ago showed normal LV systolic function -Continue DuoNebs as needed Diabetes mellitus -Sliding scale insulin, monitor for hypoglycemia -Hold oral antidiabetic medications Mild hypokalemia, resolved History of depression -Continue Zoloft 100 mg daily Recent history of acute PE Iron deficiency anemia, chronic, stable -Eliquis discontinued for surgery tomorrow, ICD in place -Patient did have EGD and colonoscopy during previous admission which did not show any evidence of bleeding. -Avoid IV iron for now given suspected infected seroma -Continue on oral iron -Hemoglobin stable Hypothyroidism -Continue levothyroxine 175 mcg daily DVT ppx: SCD Code status: Full code Anticipated discharge place: Pending clinical course Anticipated discharge time: Pending clinical course Objective - Vital Signs Vital signs: Vital Signs Temp 97.8 F 02/05/24 13:59 Pulse 72 02/05/24 14:05 Resp 14 02/05/24 14:05 BP 92/59 02/05/24 14:05 Pulse Ox 100 02/05/24 14:05 FiO2 Intake & Output 02/04/24 02/05/24 02/05/24 18:59 06:59 18:59 Intake Total 850 Output Total 540 500 200 Balance -540 -500 650 Intake: IV 850 Output: Drainage 40 50 anterior abdomen drainage 40 50 tube Urine 500 450 175 Estimated Blood Loss 25 Other: Voiding Method Bedside Commode Bedside Commode Bedside Commode External Catheter External Catheter External Catheter # Voids 2 1 # Bowel Movements 1 - Labs CBC & Chem 7: 02/04/24 04:34 02/04/24 04:34 Labs: Abnormal Lab Results - Last 24 Hours (Table) 02/04/24 02/04/24 02/05/24 Range/Units 16:27 21:28 06:33 POC Glucose (mg/dL) 301 H 221 H 162 H (70-110) mg/dL 02/05/24 02/05/24 Range/Units 11:57 12:21 POC Glucose (mg/dL) 152 H 133 H (70-110) mg/dL
[2024-02-05 14:17] LABS: Glucose,Whole Blood 143 mg/dL (70-110)
--- NOTE | 2024-02-05 14:39 | P.OP ---
Date of Procedure: 02/05/24 Procedure(s) Performed: PREOPERATIVE DIAGNOSIS: Infected abdominal wall seroma POSTOPERATIVE DIAGNOSIS: Same PROCEDURE: Incision drainage and debridement abdominal wall seroma SURGEON: Louisa EBL: 25 cc ANESTHESIA: General COMPLICATIONS: None OPERATIVE PROCEDURE: Patient placed on the operating table in the supine position. Abdomen prepped and draped sterilely after the drain was removed. Midline incision partially opened using scalpel. Dissection through the superficial subcutaneous tissues took place using electrocautery. We entered into a gelatinous seroma cavity. Approximately 6 to 800 cc was evacuated but much of this was exudate and fibrinous material. Cultures were taken x 2. Using a curette I sharply debrided the cavity circumferentially. There was an impressive amount of fibrinous material stuck to the edges as well. Following that 3 [address] of irrigation took place using the Pulsavac. The wound was then packed with lightly moistened Kerlix roll and sterile outer dressings. DISPOSITION: Stable to recovery room
[2024-02-05] MEDS: IV FLUID CONTINUATION 1,000 ML IV ONE (15:10)
--- NOTE | 2024-02-05 16:03 | P.PN ---
Subjective Progress Note Date: 02/05/24 Principal diagnosis: Reason for follow-up is right lower quadrant seroma Patient is a 58-year-old female with a past medical history significant for diabetes mellitus osteoarthritis PE ovarian cyst and depression patient was brought to the hospital for evaluation of right-sided abdominal pain palpable mass has been diagnosed with the seroma status post ultrasound-guided drainage.Patient is status post I&D and debridement of abdominal wall seroma culture has been obtained procedure completed on 02/05/2024. On today's evaluation that is 02/05/2024, patient has been afebrile, patient is breathing comfortably and is currently on room air, patient denies having any s ignificant cough no chest pain shortness of breath, patient denies nausea vomiting or diarrhea and denies any worsening abdominal pain. No lab draw today cultures are pending Objective - Vital Signs Vital signs: Vital Signs Temp 98.1 F 02/05/24 12:29 Pulse 84 02/05/24 12:29 Resp 16 02/05/24 12:29 BP 113/72 02/05/24 12:29 Pulse Ox 96 02/05/24 12:29 FiO2 Intake & Output 02/04/24 02/05/24 02/05/24 18:59 06:59 18:59 Intake Total 100 Output Total 540 500 175 Balance -540 -500 -75 Intake: IV 100 Output: Drainage 40 50 anterior abdomen drainage 40 50 tube Urine 500 450 175 Other: Voiding Method Bedside Commode Bedside Commode Bedside Commode External Catheter External Catheter External Catheter # Voids 2 1 # Bowel Movements 1 - Exam GENERAL DESCRIPTION: Middle-aged female lying in bed in no distress RESPIRATORY SYSTEM: Unlabored breathing , decreased breath sounds at bases HEART: S1 S2 regular rate and rhythm , ABDOMEN: Soft , abdominal wound is currently packed EXTREMITIES: No edema feet - Labs CBC & Chem 7: 02/04/24 04:34 02/04/24 04:34 Labs: Abnormal Lab Results - Last 24 Hours (Table) 02/04/24 02/04/24 02/05/24 Range/Units 16:27 21:28 06:33 POC Glucose (mg/dL) 301 H 221 H 162 H (70-110) mg/dL 02/05/24 02/05/24 Range/Units 11:57 12:21 POC Glucose (mg/dL) 152 H 133 H (70-110) mg/dL Assessment and Plan (1) Abdominal wall seroma Current Visit: Yes Status: Acute Code(s): S30.1XXA - CONTUSION OF ABDOMINAL WALL, INITIAL ENCOUNTER SNOMED Code(s): 191530714 (2) Abdominal wall cellulitis Current Visit: Yes Status: Acute Code(s): L03.311 - CELLULITIS OF ABDOMINAL WALL SNOMED Code(s): 52093182 Plan: 1patient presented to hospital with right lower quad abdominal pain and swell ing in this patient has been diagnosed with the recurrent abdominal wall seroma status post ultrasound-guided aspiration fluid was mostly bloody as has 20,000 WBC and only 7000 white cells cultures so far pending patient not running any fever white count is normal clinic suspicion low for an infected seroma or abscess 2-patient repeat CT did shows evidence of large fluid collection with air-bubbl e concerning for possible infection patient is status post surgical debridement I&D abdominal wound has been left open culture occlusion currently pending results will be followed 3-we will keep the patient on Unasyn while waiting for the culture to finalize Dictation was produced using [employer] dictation software. please excuse any grammatical, word or spelling errors. Time with Patient: Less than 30
[2024-02-05 16:45] LABS: Glucose,Whole Blood 174 mg/dL (70-110)
[2024-02-05] MEDS: AMPICILLIN-SULBACTAM 3 GM in SODIUM CHLORIDE 0.9% 100 ML IVPB SCH (17:39)
[2024-02-05 20:28] LABS: Glucose,Whole Blood 199 mg/dL (70-110)
[2024-02-05] MEDS: ZINC OXIDE PASTE (Z-GUARD) 1 APPLIC TOPICAL PRN (22:58)
[2024-02-06 05:45] LABS: Glucose,Whole Blood 204 mg/dL (70-110)
[2024-02-06 09:20] LABS: Basophils # (A) 0.06 X 10*3/uL (0.00-0.10); Basophils % (A) 0.7 %; Eosinophils # (A) 0.26 X 10*3/uL (0.04-0.35); Eosinophils % (A) 3.1 %; HCT 30.2 % (37.2-46.3); HGB 8.2 g/dL (12.0-15.0); Lymphocytes # (A) 0.92 X 10*3/uL (0.90-5.00); Lymphocytes % (A) 11.1 %; MCH 19.8 pg (27.0-32.0); MCHC 27.2 g/dL (32.0-37.0); MCV 72.8 FL (80.0-97.0); Mean Platelet Volume 9.3 FL (9.5-12.2); Monocytes # (A) 0.61 X 10*3/uL (0.20-1.00); Monocytes % (A) 7.3 %; NRBC Per 100 WBC 0.04 X 10*3/uL (0.00-0.01); Neutrophils # (A) 6.41 X 10*3/uL (1.80-7.70); Neutrophils % (A) 77.2 %; Platelet Count 265 X 10*3/uL (140-440); RBC 4.15 X 10*6/uL (4.10-5.20); RDW 19.9 % (11.5-14.5); WBC 8.31 X 10*3/uL (4.50-10.00)
[2024-02-06 09:23] LABS: ALT 22 U/L (8-44); AST 22 U/L (13-35); Albumin 3.4 g/dL (3.8-4.9); Albumin/Globulin Ratio 1.13 Ratio (1.60-3.17); Alkaline Phosphatase 87 U/L (41-126); Blood Urea Nitrogen 10.5 mg/dL (9.0-27.0); Carbon Dioxide 28.6 mmol/L (21.6-31.8); Chloride 96 mmol/L (96-109); Glucose 167 mg/dL (70-110); Potassium 4.7 mmol/L (3.5-5.5); Sodium 139 mmol/L (135-145); Total Bilirubin <0.2 mg/dL (0.3-1.2); Total Protein 6.4 g/dL (6.2-8.2)
[2024-02-06 12:25] LABS: Glucose,Whole Blood 247 mg/dL (70-110)
--- NOTE | 2024-02-06 13:09 | P.PN ---
Subjective Progress Note Date: 02/06/24 CHIEF COMPLAINT: Infected abdominal wall seroma HISTORY OF PRESENT ILLNESS: Patient is postop day #1 status post incision, drainage and debridement of abdominal wall seroma. Patient reports her pain is controlled. Denies any nausea or vomiting. Afebrile. WBC 8.31 PHYSICAL EXAM: VITAL SIGNS: Reviewed GENERAL: Well-developed in no acute distress. ABDOMEN: Incision with packing in place. Packing has serosanguineous drainage noted. ASSESSMENT: 1. Infected abdominal wall seroma 2. Bilateral pulmonary emboli 3. Morbid obesity due to excess calories, BMI 42.1 PLAN: -Change packing today with wet-to-dry dressing -Apply wound VAC tomorrow -Antibiotics per infectious disease -Continue pain management Physician Triage Licensed Practical Nurse note has been reviewed by physician. Signing provider agrees with the documented findings, assessment, and plan of care. Objective - Vital Signs Vital signs: Vital Signs Temp 97.9 F 02/06/24 07:05 Pulse 80 02/06/24 12:20 Resp 18 02/06/24 07:56 BP 108/68 02/06/24 07:05 Pulse Ox 97 02/06/24 07:05 FiO2 Intake & Output 02/05/24 02/06/24 02/06/24 18:59 06:59 18:59 Intake Total 1700 180 Output Total 600 2700 Balance 1100 -2520 Intake: IV 1250 Intake, IV Titration 200 Amount Ampicillin-Sulbactam 3 gm 100 In Sodium Chloride 0.9% 100 ml @ 200 mls/hr IVPB Q6H [facility] Rx#:[id number] Ampicillin-Sulbactam 3 gm 100 In Sodium Chloride 0.9% 100 ml @ 200 mls/hr IVPB Q8H [facility] Rx#:[id number] Oral 250 180 Output: Urine 575 2700 Estimated Blood Loss 25 Other: Voiding Method Bedside Commode Bedside Commode Bedside Commode External Catheter External Catheter External Catheter # Voids 1 3 # Bowel Movements 1 - Labs CBC & Chem 7: 02/06/24 04:26 02/06/24 04:26 Labs: Abnormal Lab Results - Last 24 Hours (Table) 02/05/24 02/05/24 02/05/24 Range/Units 14:14 16:40 20:26 Hgb (12.0-15.0) g/dL Hct (37.2-46.3) % MCV (80.0-97.0) FL MCH (27.0-32.0) pg MCHC (32.0-37.0) g/dL RDW (11.5-14.5) % MPV (9.5-12.2) FL Immature Gran # (0.00-0.04) X 10*3/uL NRBC/100 WBC Diff (0.00-0.01) X 10*3/uL Anion Gap (4.00-12.00) mmol/L Glucose (70-110) mg/dL POC Glucose (mg/dL) 143 H 174 H 199 H (70-110) mg/dL Total Bilirubin (0.3-1.2) mg/dL C-Reactive Protein (0.00-0.80) mg/dL Albumin (3.8-4.9) g/dL Albumin/Globulin Ratio (1.60-3.17) Ratio 02/06/24 02/06/24 02/06/24 Range/Units 04:26 04:26 05:44 Hgb 8.2 L (12.0-15.0) g/dL Hct 30.2 L (37.2-46.3) % MCV 72.8 L (80.0-97.0) FL MCH 19.8 L (27.0-32.0) pg MCHC 27.2 L (32.0-37.0) g/dL RDW 19.9 H (11.5-14.5) % MPV 9.3 L (9.5-12.2) FL Immature Gran # 0.05 H (0.00-0.04) X 10*3/uL NRBC/100 WBC Diff 0.04 H (0.00-0.01) X 10*3/uL Anion Gap 14.40 H (4.00-12.00) mmol/L Glucose 167 H (70-110) mg/dL POC Glucose (mg/dL) 204 H (70-110) mg/dL Total Bilirubin <0.2 L (0.3-1.2) mg/dL C-Reactive Protein 3.90 H (0.00-0.80) mg/dL Albumin 3.4 L (3.8-4.9) g/dL Albumin/Globulin Ratio 1.13 L (1.60-3.17) Ratio / Range/Units 12:24 Hgb (12.0-15.0) g/dL Hct (37.2-46.3) % MCV (80.0-97.0) FL MCH (27.0-32.0) pg MCHC (32.0-37.0) g/dL RDW (11.5-14.5) % MPV (9.5-12.2) FL Immature Gran # (0.00-0.04) X 10*3/uL NRBC/100 WBC Diff (0.00-0.01) X 10*3/uL Anion Gap (4.00-12.00) mmol/L Glucose (70-110) mg/dL POC Glucose (mg/dL) 247 H (70-110) mg/dL Total Bilirubin (0.3-1.2) mg/dL C-Reactive Protein (0.00-0.80) mg/dL Albumin (3.8-4.9) g/dL Albumin/Globulin Ratio (1.60-3.17) Ratio
[2024-02-06] MEDS ORDERED: HYDROcodone/APAP 5-325MG 1 EACH TAB PO PRN (13:12)
--- NOTE | 2024-02-06 13:25 | P.PN ---
Subjective Progress Note Date: 02/06/24 Hospital Course: Patient is a 58-year-old female with chronic hypoxic respiratory failure on 3 L, asthma, diabetes mellitus, hypothyroidism, depression and hypertension who presents to the ED for evaluation of right-sided abdominal mass and also erythema. Patient is denying any abdominal pain. Patient states that in October 2023 she had hernia repair done at [facility]. Patient states that last month she came into our hospital and was found to have fluid collection and this was drained by IR. Patient overall is a poor historian. In the ED CT abdomen pelvis showed possibility of gas in the lumen which is new compared to imaging from December 2023 with a new focal herniation over the right lateral aspect. Patient admitted to the medicine service with general surgery consultation. Patient seen by general surgery who recommended IR consult for drainage. Patient also started on IV vancomycin and Unasyn for suspected infected seroma. She is status post midline placement. Status post pigtail catheter placement. Cultures negative growth to date. ID has been consulted. A bd US showed large complex collection right lower quadrant. CT surgery also shows persistent large hematoma or abscess anterior subcutaneous tissue at the level of the pelvis. Surgical open drainage completed. Wound currently packed. Subjective: Patient seen and examined at bedside. No acute events overnight. No new complaints. Pertinent positives and negatives as discussed above, a complete review of systems was performed and all other systems are negative. Vitals Signs Reviewed. General: Nontoxic, no distress, appears at stated age, chronically ill-appearing Derm: Warm, dry, abdominal binder in place, packing in place Head: Atraumatic, normocephalic, symmetric Eyes: EOMI, no lid lag, anicteric sclera Mouth: No lip lesion, mucus membranes moist Cardiovascular: S1S2 reg, no murmur Lungs: CTA bilateral, no rhonchi, no rales, no accessory muscle use, supplemental oxygen Abdominal: No tenderness, positive bowel sounds Ext: No gross muscle atrophy, no edema, no contractures Neuro: CN II-XI grossly intact, no focal neuro deficits Psych: Alert, oriented, appropriate affect Data Reviewed Today: Pertinent Labs: Hemoglobin 8.3, creatinine 0.7, CRP 3.9, blood glucose range between 1 67-2 04 Imaging: No new imaging Assessment and Plan: Large seroma secondary to recent hernia repair status post pigtail catheter placement and now open drainage -Surgery following, restarted on regular diet -Cultures pending, continue IV Unasyn -ID following -PT/OT History of asthma, not in exacerbation Chronic hypoxic respiratory failure on 3 L -Continue DuoNebs as needed Diabetes mellitus -Sliding scale insulin, monitor for hypoglycemia -Hold oral antidiabetic medications Mild hypokalemia, resolved History of depression -Continue Zoloft 100 mg daily Recent history of acute PE Iron deficiency anemia, chronic, stable -Eliquis 5 BID -Patient did have EGD and colonoscopy during previous admission which did not show any evidence of bleeding. -Avoid IV iron for now given suspected infected seroma -Continue on oral iron -Hemoglobin stable Hypothyroidism -Continue levothyroxine 175 mcg daily DVT ppx: eliquis Code status: Full code Anticipated discharge place: Pending clinical course Anticipated discharge time: Pending clinical course Objective - Vital Signs Vital signs: Vital Signs Temp 97.9 F 02/06/24 07:05 Pulse 80 02/06/24 12:20 Resp 18 02/06/24 07:56 BP 108/68 02/06/24 07:05 Pulse Ox 97 02/06/24 07:05 FiO2 Intake & Output 02/05/24 02/06/24 02/06/24 18:59 06:59 18:59 Intake Total 1700 180 Output Total 600 2700 Balance 1100 -2520 Intake: IV 1250 Intake, IV Titration 200 Amount Ampicillin-Sulbactam 3 gm 100 In Sodium Chloride 0.9% 100 ml @ 200 mls/hr IVPB Q6H [facility] Rx#:[id number] Ampicillin-Sulbactam 3 gm 100 In Sodium Chloride 0.9% 100 ml @ 200 mls/hr IVPB Q8H [facility] Rx#:[id number] Oral 250 180 Output: Urine 575 2700 Estimated Blood Loss 25 Other: Voiding Method Bedside Commode Bedside Commode Bedside Commode External Catheter External Catheter External Catheter # Voids 1 3 # Bowel Movements 1 - Labs CBC & Chem 7: 02/06/24 04:26 02/06/24 04:26 Labs: Abnormal Lab Results - Last 24 Hours (Table) 02/05/24 02/05/24 02/05/24 Range/Units 14:14 16:40 20:26 Hgb (12.0-15.0) g/dL Hct (37.2-46.3) % MCV (80.0-97.0) FL MCH (27.0-32.0) pg MCHC (32.0-37.0) g/dL RDW (11.5-14.5) % MPV (9.5-12.2) FL Immature Gran # (0.00-0.04) X 10*3/uL NRBC/100 WBC Diff (0.00-0.01) X 10*3/uL Anion Gap (4.00-12.00) mmol/L Glucose (70-110) mg/dL POC Glucose (mg/dL) 143 H 174 H 199 H (70-110) mg/dL Total Bilirubin (0.3-1.2) mg/dL C-Reactive Protein (0.00-0.80) mg/dL Albumin (3.8-4.9) g/dL Albumin/Globulin Ratio (1.60-3.17) Ratio 02/06/24 02/06/24 02/06/24 Range/Units 04:26 04:26 05:44 Hgb 8.2 L (12.0-15.0) g/dL Hct 30.2 L (37.2-46.3) % MCV 72.8 L (80.0-97.0) FL MCH 19.8 L (27.0-32.0) pg MCHC 27.2 L (32.0-37.0) g/dL RDW 19.9 H (11.5-14.5) % MPV 9.3 L (9.5-12.2) FL Immature Gran # 0.05 H (0.00-0.04) X 10*3/uL NRBC/100 WBC Diff 0.04 H (0.00-0.01) X 10*3/uL Anion Gap 14.40 H (4.00-12.00) mmol/L Glucose 167 H (70-110) mg/dL POC Glucose (mg/dL) 204 H (70-110) mg/dL Total Bilirubin <0.2 L (0.3-1.2) mg/dL C-Reactive Protein 3.90 H (0.00-0.80) mg/dL Albumin 3.4 L (3.8-4.9) g/dL Albumin/Globulin Ratio 1.13 L (1.60-3.17) Ratio 02/06/24 Range/Units 12:24 Hgb (12.0-15.0) g/dL Hct (37.2-46.3) % MCV (80.0-97.0) FL MCH (27.0-32.0) pg MCHC (32.0-37.0) g/dL RDW (11.5-14.5) % MPV (9.5-12.2) FL Immature Gran # (0.00-0.04) X 10*3/uL NRBC/100 WBC Diff (0.00-0.01) X 10*3/uL Anion Gap (4.00-12.00) mmol/L Glucose (70-110) mg/dL POC Glucose (mg/dL) 247 H (70-110) mg/dL Total Bilirubin (0.3-1.2) mg/dL C-Reactive Protein (0.00-0.80) mg/dL Albumin (3.8-4.9) g/dL Albumin/Globulin Ratio (1.60-3.17) Ratio
--- NOTE | 2024-02-06 15:36 | CDI ---
Documentation Clarification Form Date: 02/06/2024 03:20:24 PM From: Jenna Clayton RN CCDS Phone: [phone] Admit Date: 01/25/2024 09:47:00 PM Patient Name: Luiza Gandara Visit Number: [id number] Discharge Date: ATTENTION: The Clinical Documentation Specialists (CDI) and [facility] Coding Staff appreciate your assistance in clarifying documentation. Please respond to the clarification below the line at the bottom and electronically sign. The CDI & [facility] Coding staff will review the response and follow-up if needed. Please note: Queries are made part of the Legal Health Record. If you have any questions, please contact the author of this message via ITS. Dr. Benny Scott debridement is documented 02/04, procedure note. Additional clarification regarding the procedure is requested. History/Risk Factors: 58-year-old female presents to the ED for evaluation of right sided abdominal pain and palpable abdominal mass. Patient states it started two days ago and increasing in pain and size. Medical History: Recent hernia repair with abdominal seroma, DM, Hypothyroid and PE. 01/24, H&P. Clinical Indicators: Using a curette I sharply debrided the cavity circumferentially. There was an impressive amount of fibrinous material stuck to the edges as well. Treatment: Incision drainage and debridement of abdominal wall seroma Please clarify the type of procedure performed and nature of the tissue debrided: [ X ] Excisional debridement (the removal of necrotic, devitalized tissue or slough by means of cutting away of tissue) [ ] Non-excisional debridement (the removal of necrotic, devitalized tissue or slough by means of flushing, brushing, or washing. (Irrigation) [ ] Other; please specify [ ] Unable to determine [ ] Nature of the tissue removed (please specify) necrotic exudate from seroma cavity [ ] Other, please specify [ ] Unable to determine Five elements required for accurate and compliant documentation of a debridement: Technique used (e.g., excisional, excised, cutting, brushing, jet lavage etc.) Instrument(s) used (e.g., scalpel, curette, etc.) Nature of the tissue removed (e.g., necrotic, devitalized tissues, non-viable tissue, etc.) Appearance and size of the wound (e.g., down to fresh bleeding tissue, 7cm x 10cm, etc.) Depth of the debridement* (e.g., skin, subcutaneous tissue, fascia, muscle, bone, etc.) (Template Last Revised: November 2020) MTDD
[2024-02-06 17:03] LABS: Glucose,Whole Blood 230 mg/dL (70-110)
[2024-02-06 20:44] LABS: Glucose,Whole Blood 258 mg/dL (70-110)
[2024-02-06] MEDS: APIXABAN 5 MG TAB PO SCH (21:39)
[2024-02-07 06:09] LABS: Glucose,Whole Blood 212 mg/dL (70-110)
--- NOTE | 2024-02-07 11:05 | P.PN ---
Subjective Progress Note Date: 02/07/24 CHIEF COMPLAINT: Infected abdominal wall seroma HISTORY OF PRESENT ILLNESS: Patient is postop day #2 status post incision, drainage and debridement of abdominal wall seroma. Patient does not complain of much pain. Her packing was changed yesterday. Denies any nausea or vomiting. Afebrile. PHYSICAL EXAM: VITAL SIGNS: Reviewed GENERAL: Well-developed in no acute distress. ABDOMEN: Nontender. Incisional dressing clean dry and intact ASSESSMENT: 1. Infected abdominal wall seroma 2. Bilateral pulmonary emboli 3. Morbid obesity due to excess calories, BMI 42.1 PLAN: -Consult wound care service for abdominal wound and to apply wound VAC -Antibiotics per infectious disease -food and beverage manager to arrange wound VAC for outpatient -food and beverage manager working on discharge planning with home care Physician Dwarf Tree Grower note has been reviewed by physician. Signing provider agrees with the documented findings, assessment, and plan of care. Objective - Vital Signs Vital signs: Vital Signs Temp 97.6 F 02/07/24 07:25 Pulse 84 02/07/24 09:47 Resp 18 02/07/24 07:46 BP 99/60 02/07/24 07:25 Pulse Ox 98 02/07/24 09:35 FiO2 Intake & Output 02/06/24 02/07/24 02/07/24 18:59 06:59 18:59 Other: Voiding Method Bedside Commode Toilet Toilet External Catheter Diaper Diaper # Voids 3 3 - Labs CBC & Chem 7: 02/07/24 11:56 02/07/24 11:56 Labs: Abnormal Lab Results - Last 24 Hours (Table) 02/06/24 02/06/24 02/06/24 Range/Units 12:24 17:02 20:42 POC Glucose (mg/dL) 247 H 230 H 258 H (70-110) mg/dL 02/07/24 Range/Units 06:08 POC Glucose (mg/dL) 212 H (70-110) mg/dL Microbiology - Last 24 Hours (Table) 02/05/24 13:37 Gram Stain - Preliminary Abdomen Wound Culture - Preliminary 02/05/24 13:40 Gram Stain - Preliminary Abdomen Wound Culture - Preliminary
[2024-02-07 12:32] LABS: Glucose,Whole Blood 204 mg/dL (70-110)
[2024-02-07 12:38] LABS: Anisocytosis Slight; Basophils % (A) 1 %; Eosinophils # (A) 0.3 k/uL (0-0.7); Eosinophils % (A) 4 %; HCT 29.4 % (34.0-46.0); HGB 7.8 gm/dL (11.4-16.0); Hypochromasia Marked; Lymphocytes # (A) 0.8 k/uL (1.0-4.8); Lymphocytes % (A) 12 %; MCH 19.4 pg (25.0-35.0); MCHC 26.7 g/dL (31.0-37.0); MCV 72.9 fL (80.0-100.0); Mean Platelet Volume 7.2; Microcytosis Moderate; Monocytes # (A) 0.4 k/uL (0-1.0); Monocytes % (A) 6 %; Neutrophils # (A) 5.2 k/uL (1.3-7.7); Neutrophils % (A) 76 %; Platelet Count 235 k/uL (150-450); RBC 4.04 m/uL (3.80-5.40); RDW 18.5 % (11.5-15.5); WBC 6.8 k/uL (3.8-10.6)
[2024-02-07 12:48] LABS: African American GFR (CKD) >90 (>60 ml/min/1.73 sqM); Anion Gap 0 mmol/L; Blood Urea Nitrogen 14 mg/dL (7-17); Calcium 8.8 mg/dL (8.4-10.2); Carbon Dioxide 37 mmol/L (22-30); Chloride 100 mmol/L (98-107); Glucose 207 mg/dL (74-99); Non-African American GFR(CKD) >90 (>60 ml/min/1.73 sqM); Potassium 4.4 mmol/L (3.5-5.1); Sodium 137 mmol/L (137-145)
[2024-02-07 13:44] LABS: C Reactive Protein 6.5 mg/dL (<1.0)
--- NOTE | 2024-02-07 14:38 | P.PN ---
Subjective Progress Note Date: 02/06/24 Principal diagnosis: Reason for follow-up is right lower quadrant seroma Patient is a 58-year-old female with a past medical history significant for diabetes mellitus osteoarthritis PE ovarian cyst and depression patient was brought to the hospital for evaluation of right-sided abdominal pain palpable mass has been diagnosed with the seroma status post ultrasound-guided drainage.Patient is status post I&D and debridement of abdominal wall seroma culture has been obtained procedure completed on 02/05/2024. On today's evaluation that is 02/06/2024,the patient denies any fever or any chills, patient is breathing comfortably on 3 L current oxygen the patient denies chest pain shortness of breath and no significant cough, patient denies nausea vomiting or diarrhea abdominal pain has decreased in intensity patient tolerating her diet. Patient white count is 8.31 creatinine 0.7 Objective - Vital Signs Vital signs: Vital Signs Temp 97.9 F 02/06/24 07:05 Pulse 80 02/06/24 12:20 Resp 18 02/06/24 07:56 BP 108/68 02/06/24 07:05 Pulse Ox 97 02/06/24 07:05 FiO2 Intake & Output 02/05/24 02/06/24 02/06/24 18:59 06:59 18:59 Intake Total 1700 180 Output Total 600 2700 Balance 1100 -2520 Intake: IV 1250 Intake, IV Titration 200 Amount Ampicillin-Sulbactam 3 gm 100 In Sodium Chloride 0.9% 100 ml @ 200 mls/hr IVPB Q6H [facility] Rx#:[id number] Ampicillin-Sulbactam 3 gm 100 In Sodium Chloride 0.9% 100 ml @ 200 mls/hr IVPB Q8H [facility] Rx#:[id number] Oral 250 180 Output: Urine 575 2700 Estimated Blood Loss 25 Other: Voiding Method Bedside Commode Bedside Commode Bedside Commode External Catheter External Catheter External Catheter # Voids 1 3 # Bowel Movements 1 - Exam GENERAL DESCRIPTION: Middle-aged female lying in bed in no distress RESPIRATORY SYSTEM: Unlabored breathing , decreased breath sounds at bases HEART: S1 S2 regular rate and rhythm , ABDOMEN: Soft , abdominal wound is currently packed EXTREMITIES: No edema feet - Labs CBC & Chem 7: 02/07/24 11:56 02/07/24 11:56 Labs: Abnormal Lab Results - Last 24 Hours (Table) 02/05/24 02/05/24 02/05/24 Range/Units 14:14 16:40 20:26 Hgb (12.0-15.0) g/dL Hct (37.2-46.3) % MCV (80.0-97.0) FL MCH (27.0-32.0) pg MCHC (32.0-37.0) g/dL RDW (11.5-14.5) % MPV (9.5-12.2) FL Immature Gran # (0.00-0.04) X 10*3/uL NRBC/100 WBC Diff (0.00-0.01) X 10*3/uL Anion Gap (4.00-12.00) mmol/L Glucose (70-110) mg/dL POC Glucose (mg/dL) 143 H 174 H 199 H (70-110) mg/dL Total Bilirubin (0.3-1.2) mg/dL C-Reactive Protein (0.00-0.80) mg/dL Albumin (3.8-4.9) g/dL Albumin/Globulin Ratio (1.60-3.17) Ratio 02/06/24 02/06/24 02/06/24 Range/Units 04:26 04:26 05:44 Hgb 8.2 L (12.0-15.0) g/dL Hct 30.2 L (37.2-46.3) % MCV 72.8 L (80.0-97.0) FL MCH 19.8 L (27.0-32.0) pg MCHC 27.2 L (32.0-37.0) g/dL RDW 19.9 H (11.5-14.5) % MPV 9.3 L (9.5-12.2) FL Immature Gran # 0.05 H (0.00-0.04) X 10*3/uL NRBC/100 WBC Diff 0.04 H (0.00-0.01) X 10*3/uL Anion Gap 14.40 H (4.00-12.00) mmol/L Glucose 167 H (70-110) mg/dL POC Glucose (mg/dL) 204 H (70-110) mg/dL Total Bilirubin <0.2 L (0.3-1.2) mg/dL C-Reactive Protein 3.90 H (0.00-0.80) mg/dL Albumin 3.4 L (3.8-4.9) g/dL Albumin/Globulin Ratio 1.13 L (1.60-3.17) Ratio 02/05/ Range/Units 12:24 Hgb (12.0-15.0) g/dL Hct (37.2-46.3) % MCV (80.0-97.0) FL MCH (27.0-32.0) pg MCHC (32.0-37.0) g/dL RDW (11.5-14.5) % MPV (9.5-12.2) FL Immature Gran # (0.00-0.04) X 10*3/uL NRBC/100 WBC Diff (0.00-0.01) X 10*3/uL Anion Gap (4.00-12.00) mmol/L Glucose (70-110) mg/dL POC Glucose (mg/dL) 247 H (70-110) mg/dL Total Bilirubin (0.3-1.2) mg/dL C-Reactive Protein (0.00-0.80) mg/dL Albumin (3.8-4.9) g/dL Albumin/Globulin Ratio (1.60-3.17) Ratio Assessment and Plan (1) Abdominal wall seroma Current Visit: Yes Status: Acute Code(s): S30.1XXA - CONTUSION OF ABDOMINAL WALL, INITIAL ENCOUNTER SNOMED Code(s): 116795121 (2) Abdominal wall cellulitis Current Visit: Yes Status: Acute Code(s): L03.311 - CELLULITIS OF ABDOMINAL WALL SNOMED Code(s): 00775071 Plan: 1patient presented to hospital with right lower quad abdominal pain and swel ling in this patient has been diagnosed with the recurrent abdominal wall seroma status post ultrasound-guided aspiration fluid was mostly bloody as has 20,000 WBC and only 7000 white cells cultures so far pending patient not running any fever white count is normal clinic suspicion low for an infected seroma or abscess 2-patient repeat CT did shows evidence of large fluid collection with air-bubb le concerning for possible infection patient is status post surgical debridement I&D abdominal wound has been left open culture occlusion currently pending 3-patient to continue with Unasyn while waiting for the culture to finalize determine discharge antibiotics, patient benefit from outpatient wound VAC for wound healing this has been discussed with the surgeon on the floor Dictation was produced using [employer] dictation software. please excuse any grammatical, word or spelling errors. Time with Patient: Less than 30
--- NOTE | 2024-02-07 14:39 | P.PN ---
Subjective Progress Note Date: 02/07/24 Principal diagnosis: Reason for follow-up is right lower quadrant seroma Patient is a 58-year-old female with a past medical history significant for diabetes mellitus osteoarthritis PE ovarian cyst and depression patient was brought to the hospital for evaluation of right-sided abdominal pain palpable mass has been diagnosed with the seroma status post ultrasound-guided drainage.Patient is status post I&D and debridement of abdominal wall seroma culture has been obtained procedure completed on 02/05/2024. On today's evaluation that is 02/07/2024,the patient remains to be afebrile, patient is on room air not requiring supplemental oxygen and denies any shortness of breath no chest pain or cough.Patient denies having any nausea or vomiting, mention abdominal pain has improved denies having any diarrhea. Patient white count 6.8, creatinine 0.54, cultures currently pending Objective - Vital Signs Vital signs: Vital Signs Temp 97.7 F 02/07/24 14:20 Pulse 83 02/07/24 14:20 Resp 21 02/07/24 14:20 BP 109/63 02/07/24 14:20 Pulse Ox 95 02/07/24 14:20 FiO2 Intake & Output 02/06/24 02/07/24 02/07/24 18:59 06:59 18:59 Other: Voiding Method Bedside Commode Toilet Toilet External Catheter Diaper Diaper # Voids 3 3 - Exam GENERAL DESCRIPTION: Middle-aged female lying in bed in no distress RESPIRATORY SYSTEM: Unlabored breathing , decreased breath sounds at bases HEART: S1 S2 regular rate and rhythm , ABDOMEN: Soft , abdominal wound is currently packed EXTREMITIES: No edema feet - Labs CBC & Chem 7: 02/07/24 11:56 02/07/24 11:56 Labs: Abnormal Lab Results - Last 24 Hours (Table) 02/06/24 02/06/24 02/07/24 Range/Units 17:02 20:42 06:08 Hgb (11.4-16.0) gm/dL Hct (34.0-46.0) % MCV (80.0-100.0) fL MCH (25.0-35.0) pg MCHC (31.0-37.0) g/dL RDW (11.5-15.5) % Lymphocytes # (1.0-4.8) k/uL Carbon Dioxide (22-30) mmol/L Glucose (74-99) mg/dL POC Glucose (mg/dL) 230 H 258 H 212 H (70-110) mg/dL C-Reactive Protein (<1.0) mg/dL 02/07/24 02/07/24 02/07/24 Range/Units 11:56 11:56 12:29 Hgb 7.8 L (11.4-16.0) gm/dL Hct 29.4 L (34.0-46.0) % MCV 72.9 L (80.0-100.0) fL MCH 19.4 L (25.0-35.0) pg MCHC 26.7 L (31.0-37.0) g/dL RDW 18.5 H (11.5-15.5) % Lymphocytes # 0.8 L (1.0-4.8) k/uL Carbon Dioxide 37 H (22-30) mmol/L Glucose 207 H (74-99) mg/dL POC Glucose (mg/dL) 204 H (70-110) mg/dL C-Reactive Protein 6.5 H (<1.0) mg/dL Microbiology - Last 24 Hours (Table) 02/05/24 13:37 Gram Stain - Preliminary Abdomen Wound Culture - Preliminary 02/05/24 13:40 Gram Stain - Preliminary Abdomen Wound Culture - Preliminary Assessment and Plan (1) Abdominal wall seroma Current Visit: Yes Status: Acute Code(s): S30.1XXA - CONTUSION OF ABDOMINAL WALL, INITIAL ENCOUNTER SNOMED Code(s): 209660166 (2) Abdominal wall cellulitis Current Visit: Yes Status: Acute Code(s): L03.311 - CELLULITIS OF ABDOMINAL WALL SNOMED Code(s): 49698369 Plan: 1patient presented to hospital with right lower quad abdominal pain and swelling in this patient has been diagnosed with the recurrent abdominal wall seroma status post ultrasound-guided aspiration fluid was mostly bloody as has 20,000 WBC and only 7000 white cells cultures so far pending patient not running any fever white count is normal clinic suspicion low for an infected seroma or abscess 2-patient repeat CT did shows evidence of large fluid collection with air- bubble concerning for possible infection patient is status post surgical debridement I&D abdominal wound has been left open culture occlusion currently pending 3-patient currently being treated with IV Unasyn however if the culture negative for any resistant pathogen we will consider short course of oral antibiotic and no need for any PICC line or IV antibiotics on discharge this was discussed with the field nurse case manager Dictation was produced using [email or web address] dictation software. please excuse any grammatical, word or spelling errors. Time with Patient: Less than 30
--- NOTE | 2024-02-07 15:50 | P.PN ---
Subjective Progress Note Date: 02/07/24 .Hospital Course: Patient is a 58-year-old female with chronic hypoxic respiratory failure on 3 L, asthma, diabetes mellitus, hypothyroidism, depression and hypertension who presents to the ED for evaluation of right-sided abdominal mass and also erythema. Patient is denying any abdominal pain. Patient states that in October 2023 she had hernia repair done at [facility]. Patient states that last month she came into our hospital and was found to have fluid collection and this was drained by IR. Patient overall is a poor historian. In the ED CT abdomen pelvis showed possibility of gas in the lumen which is new compared to imaging from December 2023 with a new focal herniation over the right lateral aspect. Patient admitted to the medicine service with general surgery consultation. Patient seen by general surgery who recommended IR consult for drainage. Patient also started on IV vancomycin and Unasyn for suspected infected seroma. She is status post midline placement. Status post pigtail catheter placement. Cultures negative growth to date. ID has been consulted. Abd US showed large complex collection right lower quadrant. CT surgery also shows persistent large hematoma or abscess anterior subcutaneous tissue at the level of the pelvis. Surgical open drainage completed. Wound currently packed. Wound care was consulted and placed a wound VAC. Subjective: Patient seen this morning. She is denying any acute complaints. No other acute issues overnight Physical exam Vitals Signs Reviewed. 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 Psych - Calm and cooperative range between 1 67-2 04 Imaging: No new imaging Assessment and Plan: Large seroma secondary to recent hernia repair status post pigtail catheter placement and now I&D and debridement -Wound care consult for wound VAC placement -Surgery following, restarted on regular diet -Cultures are negative to date, continue IV Unasyn -ID following -PT/OT -> recommending home with home care History of asthma, not in exacerbation Chronic hypoxic respiratory failure on 3 L -Continue DuoNebs as needed Diabetes mellitus -Sliding scale insulin, monitor for hypoglycemia -Hold oral antidiabetic medications Mild hypokalemia, resolved History of depression -Continue Zoloft 100 mg daily Recent history of acute PE Iron deficiency anemia, chronic, stable -Eliquis 5 BID -Patient did have EGD and colonoscopy during previous admission which did not show any evidence of bleeding. -Avoid IV iron for now given suspected infected seroma -Continue on oral iron -Hemoglobin stable. Hemoglobin this morning is 7.8 Hypothyroidism -Continue levothyroxine 175 mcg daily DVT ppx: eliquis Code status: Full code Anticipated discharge place: Home with home care Anticipated discharge time: Tomorrow. Awaiting for ID to give final antibiotic recommendations Objective - Vital Signs Vital signs: Vital Signs Temp 97.7 F 02/07/24 14:20 Pulse 83 02/07/24 14:20 Resp 21 02/07/24 14:20 BP 109/63 02/07/24 14:20 Pulse Ox 95 02/07/24 14:20 FiO2 Intake & Output 02/06/24 02/07/24 02/07/24 18:59 06:59 18:59 Other: Voiding Method Bedside Commode Toilet Toilet External Catheter Diaper Diaper # Voids 3 3 - Labs CBC & Chem 7: 02/07/24 11:56 02/07/24 11:56 Labs: Abnormal Lab Results - Last 24 Hours (Table) 02/06/24 02/06/24 02/07/24 Range/Units 17:02 20:42 06:08 Hgb (11.4-16.0) gm/dL Hct (34.0-46.0) % MCV (80.0-100.0) fL MCH (25.0-35.0) pg MCHC (31.0-37.0) g/dL RDW (11.5-15.5) % Lymphocytes # (1.0-4.8) k/uL Carbon Dioxide (22-30) mmol/L Glucose (74-99) mg/dL POC Glucose (mg/dL) 230 H 258 H 212 H (70-110) mg/dL C-Reactive Protein (<1.0) mg/dL 02/07/24 02/07/24 02/07/24 Range/Units 11:56 11:56 12:29 Hgb 7.8 L (11.4-16.0) gm/dL Hct 29.4 L (34.0-46.0) % MCV 72.9 L (80.0-100.0) fL MCH 19.4 L (25.0-35.0) pg MCHC 26.7 L (31.0-37.0) g/dL RDW 18.5 H (11.5-15.5) % Lymphocytes # 0.8 L (1.0-4.8) k/uL Carbon Dioxide 37 H (22-30) mmol/L Glucose 207 H (74-99) mg/dL POC Glucose (mg/dL) 204 H (70-110) mg/dL C-Reactive Protein 6.5 H (<1.0) mg/dL Microbiology - Last 24 Hours (Table) 02/05/24 13:37 Gram Stain - Preliminary Abdomen Wound Culture - Preliminary 02/05/24 13:40 Gram Stain - Preliminary Abdomen Wound Culture - Preliminary
[2024-02-07 17:20] LABS: Glucose,Whole Blood 163 mg/dL (70-110)
[2024-02-07 20:35] LABS: Glucose,Whole Blood 227 mg/dL (70-110)
[2024-02-08 05:50] LABS: Glucose,Whole Blood 205 mg/dL (70-110)
--- NOTE | 2024-02-08 10:15 | P.CONS ---
History of Present Illness - Reason for Consult Consult date: 02/08/24 wound care - History of Present Illness This is a 58-year-old patient being seen by the wound care center on [address] for a nonhealing ulceration to the abdomen. Patient underwent a surgical debridement of an abdominal seroma. Ulceration has muscle involvement without necrosis. Currently being packed with Kerlix. The plan is for the patient to have a negative pressure wound VAC. Patient's past medical history significant for Asthma, diabetes, thyroid disorder, he she is a lifelong non-smoker. Review Of Systems: Constitutional: No fever, no chills, no night sweats. No weight change. No weakness, fatigue or lethargy. No daytime sleepiness. Integumentary:reports wounds, no lesions. No rash or pruritus. No unusual bruising. No change in hair or nails. Physical exam: General Appearance: Alert, cooperative, no distress, appears stated age. Skin: See HPI all other Skin color, texture, tugor normal, no rashes or lesions. Neurologic: Alert oriented x3 Assessment: 1. Nonhealing ulceration with muscle involvement without necrosis other site. 2. Diabetes with skin ulceration Plan: 1.Abdominal ulceration: Prior to discharge pack area with moistened absorptive silver, moistened Kerlix and cover with ABD secure with tape. Once home care is available apply negative pressure wound VAC at 150 mmHg with black foam to the site. Change Sunday. Patient will be set up to see the wound care center within the week. Thank you for the consultation any questions please contact the wound care ce nter DNP note has been reviewed and discussed with Dr. Cheema and the impression and plan of care has been directed as dictated. Past Medical History Past Medical History: Asthma, Diabetes Mellitus, Osteoarthritis (OA), Thyroid Disorder Additional Past Medical History / Comment(s): ovarian cysts History of Any Multi-Drug Resistant Organisms: None Reported Past Surgical History: Hernia Repair Additional Past Surgical History / Comment(s): ovarian cyst removal Past Anesthesia/Blood Transfusion Reactions: No Reported Reaction, Motion Sickness Past Psychological History: Depression Smoking Status: Never smoker Past Alcohol Use History: Occasional Past Drug Use History: None Reported - Past Family History Sister(s) Family Medical History: Cancer Additional Family Medical History / Comment(s): breast cancer Medications and Allergies Home Medications Medication Instructions Recorded Confirmed Type Albuterol Nebulized [Ventolin 2.5 mg INHALATION RT-Q2H PRN 12/20/23 01/26/24 History Nebulized] Ergocalciferol (Vitamin D2) 1,250 mcg PO Q7D 12/20/23 01/26/24 History [Drisdol (50,000 Iu)] Furosemide [Lasix] 20 mg PO DAILY 12/20/23 01/26/24 History Glimepiride [Amaryl] 4 mg PO DAILY 12/20/23 01/26/24 History Levothyroxine Sodium [Synthroid] 175 mcg PO DAILY 12/20/23 01/26/24 History Sertraline [Zoloft] 100 mg PO DAILY 12/20/23 01/26/24 History metFORMIN HCL ER [Glucophage XR] 1,000 mg PO AC-BRKFST 12/20/23 01/26/24 History Acetaminophen Tab [Tylenol] 650 mg PO Q6HR PRN tab 12/27/23 01/26/24 Rx Ferrous Sulfate [Iron (65 MG 325 mg PO W/LUNCH #30 tab 12/27/23 01/26/24 Rx Elemental)] Pantoprazole [Protonix] 40 mg PO BID #60 tab 12/27/23 01/26/24 Rx Apixaban [Eliquis] 5 mg PO BID 01/22/24 01/26/24 History Potassium Chloride ER [K-Dur 20] 20 meq PO DAILY #7 tab 01/22/24 01/26/24 Rx Allergies Allergy/AdvReac Type Severity Reaction Status Date / Time No Known Allergies Allergy Verified 01/26/24 17:21 Physical Exam Vitals: Vital Signs Temp Pulse Pulse Resp BP Pulse Ox 02/08/24 06:46 98 F 75 18 114/77 96 02/08/24 02:00 98.1 F 78 20 104/64 97 02/07/24 21:17 88 02/07/24 21:04 84 02/07/24 20:00 97.8 F 84 22 114/54 96 02/07/24 16:45 82 02/07/24 16:34 76 02/07/24 14:20 97.7 F 83 21 109/63 95 02/07/24 12:57 80 02/07/24 12:46 80 Intake and Output 02/07/24 02/08/24 02/08/24 22:59 06:59 14:59 Other: Voiding Method Toilet Diaper # Voids 5 4 # Bowel Movements 1 Results CBC & Chem 7: 02/07/24 11:56 02/07/24 11:56 Labs: Abnormal Lab Results - Last 24 Hours (Table) 02/07/24 02/07/24 02/07/24 Range/Units 11:56 11:56 12:29 Hgb 7.8 L (11.4-16.0) gm/dL Hct 29.4 L (34.0-46.0) % MCV 72.9 L (80.0-100.0) fL MCH 19.4 L (25.0-35.0) pg MCHC 26.7 L (31.0-37.0) g/dL RDW 18.5 H (11.5-15.5) % Lymphocytes # 0.8 L (1.0-4.8) k/uL Carbon Dioxide 37 H (22-30) mmol/L Glucose 207 H (74-99) mg/dL POC Glucose (mg/dL) 204 H (70-110) mg/dL C-Reactive Protein 6.5 H (<1.0) mg/dL 02/07/24 02/07/24 02/08/24 Range/Units 17:18 20:33 05:49 Hgb (11.4-16.0) gm/dL Hct (34.0-46.0) % MCV (80.0-100.0) fL MCH (25.0-35.0) pg MCHC (31.0-37.0) g/dL RDW (11.5-15.5) % Lymphocytes # (1.0-4.8) k/uL Carbon Dioxide (22-30) mmol/L Glucose (74-99) mg/dL POC Glucose (mg/dL) 163 H 227 H 205 H (70-110) mg/dL C-Reactive Protein (<1.0) mg/dL Microbiology - Last 24 Hours (Table) 02/05/24 13:37 Anaerobic Culture - Preliminary Abdomen 02/05/24 13:37 Gram Stain - Final Abdomen Wound Culture - Final 02/05/24 13:40 Gram Stain - Final Abdomen Wound Culture - Final Assessment and Plan (1) Non-pressure chronic ulcer of skin of other sites with muscle involvement without evidence of necrosis Current Visit: Yes Status: Acute Code(s): L98.495 - NON-PRS CHR ULC SKIN/ OTH SITE WITH MSL INVL W/O EVD OF NECR SNOMED Code(s): 94807330 (2) Type 2 diabetes mellitus with other skin ulcer Current Visit: Yes Status: Acute Code(s): E11.622 - TYPE 2 DIABETES MELLITUS WITH OTHER SKIN ULCER; L98.499 - NON-PRESSURE CHRONIC ULCER OF SKIN OF SITES W UNSP SEVERITY SNOMED Code(s): 371382884
[2024-02-08 11:52] LABS: Glucose,Whole Blood 193 mg/dL (70-110)
--- NOTE | 2024-02-08 13:05 | P.DS ---
Providers Date of admission: 01/25/24 21:47 Attending physician: Jose Rafael Fang MD Consults: 01/25/24 21:47 Consult Physician Routine Consulting Provider: Tina Lerner Consult Reason/Comments: known Do you want consulting provider notified?: Yes 02/01/24 04:55 Consult Physician Routine Consulting Provider: Janie Amaral Consult Reason/Comments: Antibiotic management Do you want consulting provider notified?: Yes, Notify in am 02/05/24 08:29 Consult Physician Routine Consulting Provider: Benny Jasso Consult Reason/Comments: abdominal pain Do you want consulting provider notified?: Already Contacted [facility] [place] Course: Discharge Diagnosis: Large seroma secondary to recent hernia repair status post pigtail catheter p lacement and then I&D and debridement and wound VAC placement Asthma: Stable Diabetes mellitus: Controlled Mild hypokalemia History of depression Recent history of acute pulmonary embolism Iron deficiency anemia Hypothyroidism Hospital Course: Patient is a 58-year-old female with chronic hypoxic respiratory failure on 3 L, asthma, diabetes mellitus, hypothyroidism, depression and hypertension who presents to the ED for evaluation of right-sided abdominal mass and also erythema. Patient is denying any abdominal pain. Patient states that in October 2023 she had hernia repair done at [facility]. Patient states that last month she came into our hospital and was found to have fluid collection and this was drained by IR. Patient overall is a poor historian. In the ED CT abdomen pelvis showed possibility of gas in the lumen which is new compared to imaging from December 2023 with a new focal herniation over the right lateral aspect. Patient admitted to the medicine service with general surgery consultation. Patient seen by general surgery who recommended IR consult for drainage. Patient also started on IV vancomycin and Unasyn for suspected infected seroma. IR placed pigtail catheter placement. ID has been consulted. Abd US showed large complex collection right lower quadrant. CT abdomen pelvis also shows persistent large hematoma or abscess anterior subcutaneous tissue at the level of the pelvis. Since the pigtail catheter drainage did not work General surgery did open drainage completed. Patient was then seen by wound care who placed a wound VAC. Patient's fluid cultures all came back negative. At the time of discharge ID recommended 10 more days of Augmentin. Patient also instructed to follow-up at the wound care center. At the time of discharge patient reported that her abdominal pain was much better. She also worked with physical therapy and was deemed stable to go home. Patient is looking forward to going home. Patient seen and examined at bedside on 02/08/2024.[] Vital signs reviewed and stable. 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 Patient Condition at Discharge: Fair Plan - Discharge Summary Discharge Rx Participant: No New Discharge Prescriptions: New Amoxic-Pot Clav 875-125Mg [Augmentin 875-125] 1 tab PO Q12HR 10 Days #20 tab Continue Albuterol Nebulized [Ventolin Nebulized] 2.5 mg INHALATION RT-Q2H PRN PRN Reason: Shortness Of Breath metFORMIN HCL ER [Glucophage XR] 1,000 mg PO AC-BRKFST Levothyroxine Sodium [Synthroid] 175 mcg PO DAILY Furosemide [Lasix] 20 mg PO DAILY Ergocalciferol (Vitamin D2) [Drisdol (50,000 Iu)] 1,250 mcg PO Q7D Acetaminophen Tab [Tylenol] 650 mg PO Q6HR PRN tab PRN Reason: Mild Pain Or Fever > 100.5 Potassium Chloride ER [K-Dur 20] 20 meq PO DAILY #7 tab Sertraline [Zoloft] 100 mg PO DAILY Glimepiride [Amaryl] 4 mg PO DAILY Ferrous Sulfate [Iron (65 MG Elemental)] 325 mg PO W/LUNCH #30 tab Pantoprazole [Protonix] 40 mg PO BID #60 tab Apixaban [Eliquis] 5 mg PO BID Discharge Medication List Albuterol Nebulized [Ventolin Nebulized] 2.5 mg INHALATION RT-Q2H PRN 12/20/23 [History] Ergocalciferol (Vitamin D2) [Drisdol (50,000 Iu)] 1,250 mcg PO Q7D 12/20/23 [History] Furosemide [Lasix] 20 mg PO DAILY 12/20/23 [History] Glimepiride [Amaryl] 4 mg PO DAILY 12/20/23 [History] Levothyroxine Sodium [Synthroid] 175 mcg PO DAILY 12/20/23 [History] Sertraline [Zoloft] 100 mg PO DAILY 12/20/23 [History] metFORMIN HCL ER [Glucophage XR] 1,000 mg PO AC-BRKFST 12/20/23 [History] Acetaminophen Tab [Tylenol] 650 mg PO Q6HR PRN tab 12/27/23 [Rx] Ferrous Sulfate [Iron (65 MG Elemental)] 325 mg PO W/LUNCH #30 tab 12/27/23 [Rx] Pantoprazole [Protonix] 40 mg PO BID #60 tab 12/27/23 [Rx] Apixaban [Eliquis] 5 mg PO BID 01/22/24 [History] Potassium Chloride ER [K-Dur 20] 20 meq PO DAILY #7 tab 01/22/24 [Rx] Amoxic-Pot Clav 875-125Mg [Augmentin 875-125] 1 tab PO Q12HR 10 Days #20 tab [Rx] Follow up Appointment(s)/Referral(s): Benny Jasso MD [Medical Doctor] - 1 Week Samuel Melgar MD [Primary Care Provider] - 1-2 days 3M,[facility] [NON-STAFF] - As Needed (wound vac) [facility], [NON-STAFF] - As Needed Wound Center,[facility] [NON-STAFF] - 02/14/24 12:45 pm Patient Instructions/Handouts: Abdominal Binder (DC) Activity/Diet/Wound Care/Special Instructions: Wear abdominal binder daily except for showering. Follow-up with your [place] surgeon for hernia repair. Discharge Disposition: HOME WITH HOME HEALTH SERVICES
--- NOTE | 2024-02-08 13:21 | P.PN ---
Subjective Progress Note Date: 02/08/24 CHIEF COMPLAINT: Infected abdominal wall seroma HISTORY OF PRESENT ILLNESS: Patient is postop day #3 status post incision, drainage and debridement of abdominal wall seroma. Patient denies any abdominal pain. She has been evaluated by wound care service. Their input is appreciated. Patient has wound VAC and home care arranged for outpatient placement of the wound VAC. Afebrile. PHYSICAL EXAM: VITAL SIGNS: Reviewed GENERAL: Well-developed in no acute distress. ABDOMEN: Nontender. Incisional dressing clean dry and intact ASSESSMENT: 1. Infected abdominal wall seroma 2. Bilateral pulmonary emboli 3. Morbid obesity due to excess calories, BMI 42.1 PLAN: -Patient can be discharged from surgical standpoint -Discharge antibiotics per infectious disease -Patient will follow-up at the wound care center -Home care arranged to place wound VAC at home Physician Staff Development Manager note has been reviewed by physician. Signing provider agrees with the documented findings, assessment, and plan of care. Objective - Vital Signs Vital signs: Vital Signs Temp 98 F 02/08/24 06:46 Pulse 84 02/08/24 10:19 Resp 18 02/08/24 06:46 BP 114/77 02/08/24 06:46 Pulse Ox 96 02/08/24 06:46 FiO2 Intake & Output 02/07/24 02/08/24 02/08/24 18:59 06:59 18:59 Other: Voiding Method Toilet Toilet Toilet Diaper Diaper Diaper # Voids 5 4 # Bowel Movements 1 - Labs CBC & Chem 7: 02/07/24 11:56 02/07/24 11:56 Labs: Abnormal Lab Results - Last 24 Hours (Table) 02/07/24 02/07/24 02/07/24 Range/Units 11:56 17:18 20:33 POC Glucose (mg/dL) 163 H 227 H (70-110) mg/dL C-Reactive Protein 6.5 H (<1.0) mg/dL 02/08/24 02/08/24 Range/Units 05:49 11:50 POC Glucose (mg/dL) 205 H 193 H (70-110) mg/dL C-Reactive Protein (<1.0) mg/dL Microbiology - Last 24 Hours (Table) 02/05/24 13:37 Anaerobic Culture - Preliminary Abdomen 02/05/24 13:37 Gram Stain - Final Abdomen Wound Culture - Final 02/05/24 13:40 Gram Stain - Final Abdomen Wound Culture - Final
[2024-02-08 15:06] VITALS: BP 106/71; PULSE 78; RESP 19; TEMP 97.8
--- NOTE | 2024-02-08 16:03 | P.PN ---
Subjective Progress Note Date: 02/08/24 Principal diagnosis: Reason for follow-up is right lower quadrant seroma Patient is a 58-year-old female with a past medical history significant for diabetes mellitus osteoarthritis PE ovarian cyst and depression patient was brought to the hospital for evaluation of right-sided abdominal pain palpable mass has been diagnosed with the seroma status post ultrasound-guided drainage.Patient is status post I&D and debridement of abdominal wall seroma culture has been obtained procedure completed on 02/05/2024. On today's evaluation that is 02/08/2024, the patient continues to be afebrile, the patient is on room air and breathing comfortably, the Pt denies having any chest pain or cough, the patient denies having any nausea vomiting abdominal pain has decreased intensity no diarrhea. No labs were obtained today white count was 6.8 as of yesterday culture has been negative so far Objective - Vital Signs Vital signs: Vital Signs Temp 98 F 02/08/24 06:46 Pulse 84 02/08/24 10:19 Resp 18 02/08/24 06:46 BP 114/77 02/08/24 06:46 Pulse Ox 96 02/08/24 06:46 FiO2 Intake & Output 02/07/24 02/08/24 02/08/24 18:59 06:59 18:59 Other: Voiding Method Toilet Toilet Toilet Diaper Diaper Diaper # Voids 5 4 # Bowel Movements 1 - Exam GENERAL DESCRIPTION: Middle-aged female lying in bed in no distress RESPIRATORY SYSTEM: Unlabored breathing , decreased breath sounds at bases HEART: S1 S2 regular rate and rhythm , ABDOMEN: Soft , abdominal wound is currently packed EXTREMITIES: No edema feet - Labs CBC & Chem 7: 02/07/24 11:56 02/07/24 11:56 Labs: Abnormal Lab Results - Last 24 Hours (Table) 02/07/24 02/07/24 02/07/24 Range/Units 11:56 11:56 12:29 Hgb 7.8 L (11.4-16.0) gm/dL Hct 29.4 L (34.0-46.0) % MCV 72.9 L (80.0-100.0) fL MCH 19.4 L (25.0-35.0) pg MCHC 26.7 L (31.0-37.0) g/dL RDW 18.5 H (11.5-15.5) % Lymphocytes # 0.8 L (1.0-4.8) k/uL Carbon Dioxide 37 H (22-30) mmol/L Glucose 207 H (74-99) mg/dL POC Glucose (mg/dL) 204 H (70-110) mg/dL C-Reactive Protein 6.5 H (<1.0) mg/dL 02/07/24 02/07/24 02/08/24 Range/Units 17:18 20:33 05:49 Hgb (11.4-16.0) gm/dL Hct (34.0-46.0) % MCV (80.0-100.0) fL MCH (25.0-35.0) pg MCHC (31.0-37.0) g/dL RDW (11.5-15.5) % Lymphocytes # (1.0-4.8) k/uL Carbon Dioxide (22-30) mmol/L Glucose (74-99) mg/dL POC Glucose (mg/dL) 163 H 227 H 205 H (70-110) mg/dL C-Reactive Protein (<1.0) mg/dL Microbiology - Last 24 Hours (Table) 02/05/24 13:37 Anaerobic Culture - Preliminary Abdomen 02/05/24 13:37 Gram Stain - Final Abdomen Wound Culture - Final 02/05/24 13:40 Gram Stain - Final Abdomen Wound Culture - Final Assessment and Plan (1) Abdominal wall seroma Status: Acute Code(s): S30.1XXA - CONTUSION OF ABDOMINAL WALL, INITIAL ENCOUNTER SNOMED Code(s): 268745163 (2) Abdominal wall cellulitis Status: Acute Code(s): L03.311 - CELLULITIS OF ABDOMINAL WALL SNOMED Code(s): 40637675 Plan: 1patient presented to hospital with right lower quad abdominal pain and swelling in this patient has been diagnosed with the recurrent abdominal wall seroma status post ultrasound-guided aspiration fluid was mostly bloody as has 20,000 WBC and only 7000 white cells cultures so far pending patient not running any fever white count is normal clinic suspicion low for an infected seroma or abscess 2-patient repeat CT did shows evidence of large fluid collection with air- bubble concerning for possible infection patient is status post surgical debridement I&D abdominal wound has been left open culture which are negative so far 3-patient wound culture has been negative and resistant pathogen we will consider 10-day course of oral Augmentin at discharge local wound care with wound VAC discussed with admitting physician Dictation was produced using [employer] dictation software. please excuse any grammatical, word or spelling errors. Time with Patient: Less than 30
--- NOTE | 2024-02-11 12:09 | CDI ---
Documentation Clarification Form Date: 02/11/24 From: Luiza Petty Admit Date: 01/25/2024 09:47:00 PM Patient Name: Luiza Gandara Visit Number: [id number] Discharge Date: 02/08/2024 03:40:00 PM ATTENTION: The Clinical Documentation Specialists (CDI) and [facility] Coding Staff appreciate your assistance in clarifying documentation. Please respond to the clarification below the line at the bottom and electronically sign. The CDI & [facility] Coding staff will review the response and follow-up if needed. Please note: Queries are made part of the Legal Health Record. If you have any questions, please contact the author of this message via ITS. Dr. Zhang Baxter, There is documentation of recent history of acute PE per ED Note, H&P and multiple progress notes. Additional clarification of the acuity of the condition is requested. History/Risk Factors: S/P hernia repair 2 months ago, chronic respiratory failure with hypoxia, abdominal seroma, T2DM, hypothyroidism, morbid obesity w BMI of 42.1 Clinical Indicators: No chest CT this admission Treatment: Home meds: Eliquis 5 mg po BID and continued this admission Can you please clarify the acuity of the pulmonary embolism? [ ] Acute [ X ] Chronic [ ] History of [ ] Other, please specify [ ] Unable to determine MTDD
== END 2024-02-08 15:40 | disposition home health service (06) | DRG 902 ==
LOC: EC 17:40 → 4SSUR 21:47
PROVIDERS: ADMIT Internal Medicine; ATTEND Internal Medicine
PROC: 05HD33Z Insertion of Infusion Device into Right Cephalic Vein, Percutaneous Approach (ICD-10-PCS; 2024-01-28)
PROC: 0W9F30Z Drainage of Abdominal Wall with Drainage Device, Percutaneous Approach (ICD-10-PCS; 2024-01-30)
PROC: 0JB80ZZ Excision of Abdomen Subcutaneous Tissue and Fascia, Open Approach (ICD-10-PCS; principal; 2024-02-05 07:30)
DX: K91.872 Postprocedural seroma of a digestive system organ or structure following a digestive system procedure (principal); I27.82 Chronic pulmonary embolism; J96.11 Chronic respiratory failure with hypoxia; T81.43XA Infection following a procedure, organ and space surgical site, initial encounter; L02.211 Cutaneous abscess of abdominal wall; L03.311 Cellulitis of abdominal wall; L98.495 Non-pressure chronic ulcer of skin of other sites with muscle involvement without evidence of necrosis; Z68.41 Body mass index [BMI] 40.0-44.9, adult; E11.622 Type 2 diabetes mellitus with other skin ulcer; I11.9 Hypertensive heart disease without heart failure; D50.9 Iron deficiency anemia, unspecified; G80.9 Cerebral palsy, unspecified; E03.9 Hypothyroidism, unspecified; E66.01 Morbid (severe) obesity due to excess calories; F32.A Depression, unspecified; J45.909 Unspecified asthma, uncomplicated; E87.6 Hypokalemia; E87.70 Fluid overload, unspecified; M19.90 Unspecified osteoarthritis, unspecified site; Z79.01 Long term (current) use of anticoagulants; Z79.84 Long term (current) use of oral hypoglycemic drugs; Z79.890 Hormone replacement therapy; Z79.899 Other long term (current) drug therapy; Z71.3 Dietary counseling and surveillance; Y83.8 Other surgical procedures as the cause of abnormal reaction of the patient, or of later complication, without mention of misadventure at the time of the procedure
CPT/HCPCS: 10030; 36410; 36415; 71045; 74176; 74177; 76705; 76937; 76942; 80048; 80053; 80202; 82150; 82565; 83036; 83605; 83690; 83735; 84100; 85025; 85610; 85730; 86140; 86850; 86900; 86901; 87070; 87075; 87102; 87205; 89050; 94640; 94760; 96361; 96365; 99285

== ENCOUNTER → 2024-03-18 | Outpatient (CLI) | payer BC ==
[2024-03-18 09:02] LABS: African American GFR (CKD) >90 (>60 ml/min/1.73 sqM); Blood Urea Nitrogen 41 mg/dL (7-17); Non-African American GFR(CKD) >90 (>60 ml/min/1.73 sqM)
--- NOTE | 2024-03-18 12:20 | CT ---
EXAMINATION TYPE: CT angio chest CT DLP: 497.80 mGycm, Automated exposure control for dose reduction was used. DATE OF EXAM: 03/18/2024 9:44 AM COMPARISON: 12/03/2023 CLINICAL INDICATION:Female, 58 years old with history of R06.02 SOB; Shortness of breath TECHNIQUE/CONTRAST: CTA scan of the thorax is performed with IV Contrast, patient injected with 100 mL of Isovue 370, MIP images are created and reviewed these are created on a separate workstation.. FINDINGS: Pulmonary Artery: There is no evidence for a filling defect within the pulmonary vasculature to sugge st acute pulmonary embolism. The pulmonary artery is of normal size. Lungs/Pleura: Elevated left diaphragm with atelectasis in the lung bases. No evidence of airspace con solidation, pleural effusion or pneumothorax. Airway: Large airways are patent. Heart: Heart is within normal limits for size. Vasculature: No evidence of aortic aneurysm. Mediastinum: No gross evidence of adenopathy. Musculoskeletal: No acute osseous abnormalities Soft Tissues/lymph nodes: Unremarkable. Lower neck: No significant findings. Upper Abdomen: No significant findings. IMPRESSION: 1. No evidence of pulmonary embolism. 2. Atelectasis changes in the lung base on the left with elevated left diaphragm. The left diaphragm should be further evaluated for phrenic nerve injury.
== END | disposition home or self-care (01) ==
LOC: RADCTMAIN 08:15
PROVIDERS: ATTEND Internal Medicine
DX: J98.11 Atelectasis (principal); Q79.1 Other congenital malformations of diaphragm
CPT/HCPCS: 82565; 84520; 71275; 36415; Q9967

== ENCOUNTER 2024-04-01 08:54 | Day surgery (SDC) | payer BC ==
[2024-04-01] MEDS: IV FLUID CONTINUATION 1,000 ML IV ONE (09:20)
[2024-04-01 09:28] VITALS: TEMP 97.2
[2024-04-01 09:33] LABS: Glucose,Whole Blood 135 mg/dL (70-110)
[2024-04-01] MEDS ORDERED: PROPOFOL 10 MG/ML 20 ML VIAL IV ONE (09:37)
[2024-04-01] MEDS ORDERED: LIDOCAINE 1% INJ 10MG/ML (20 ML MDV) ONE (09:37)
--- NOTE | 2024-04-01 10:03 | P.PCN ---
Date of Procedure: 04/01/24 Procedure(s) Performed: BRIEF HISTORY: Patient is a 58-year-old pleasant white female scheduled for an elective colonoscopy as a part of evaluation for history of colon polyps. Last colonoscopy was 3 years ago. PROCEDURE PERFORMED: Colonoscopy with snare polypectomy. PREOPERATIVE DIAGNOSIS: History of colon polyps. IV sedation per Anesthesia. PROCEDURE: After informed consent was obtained, the patient, was brought into the endoscopy unit. IV sedation was administered by Anesthesia under continuous monitoring. Digital rectal examination was normal. Initially the Olympus CF-160 flexible video colonoscope was then inserted in the rectum, gradually advanced into the cecum without any difficulty. Careful examination was performed as the scope was gradually being withdrawn. Ileocecal valve and the appendiceal orifice were visualized and appeared normal. Prep was excellent. Mucosa of the cecum, appeared normal. In the ascending colon there was was a 1 cm polyp that was removed by snare polypectomy. Polyp could not be retrieved. In the hepatic section it was a 5 mm polyp removed by snare polypectomy. In the transverse colon there was a 5 mm, 1 cm and 1.5 cm polyps removed by snare polypectomy. In the descending colon there was a 1 cm polyp removed by snare polypectomy. Rest of the descending colon, sigmoid colon, and rectum appeared normal. Retroflexion was performed in the rectum and no lesions were seen. The patient tolerated the procedure well. IMPRESSION: 1 cm ascending colon polyp status post snare polypectomy 5 mm hepatic flexure polyp status post polypectomy 3 polyps in the transverse colon measuring between 5 mm, 1 cm and 1.5 cm all of which were removed by snare polypectomy 1 cm descending colon polyp status post polypectomy RECOMMENDATIONS: Findings of this examination were discussed with the patient as well as family. She was advised to follow-up with the biopsy results. The biopsy results know when she can have the colonoscopy in 3 years..
[2024-04-01 10:13] VITALS: RESP 16
[2024-04-01 11:14] VITALS: BP 105/63; PULSE 69
== END 2024-04-01 11:15 | disposition home or self-care (01) ==
LOC: ORWHC2ENDO 08:54
PROVIDERS: ATTEND Internal Medicine Gastroenterology
DX: Z12.11 Encounter for screening for malignant neoplasm of colon (principal); D12.3 Benign neoplasm of transverse colon; D12.4 Benign neoplasm of descending colon; E11.9 Type 2 diabetes mellitus without complications; F32.A Depression, unspecified; Z86.010 Personal history of colon polyps; Z79.899 Other long term (current) drug therapy; Z79.84 Long term (current) use of oral hypoglycemic drugs
CPT/HCPCS: 88305; 45385; J2001; J2704

== ENCOUNTER → 2024-04-08 | Outpatient (CLI) | payer BC ==
--- NOTE | 2024-04-08 19:43 | CT ---
EXAMINATION TYPE: CT abdomen pelvis wo con DATE OF EXAM: 04/08/2024 COMPARISON: 02/03/2024 HISTORY: 58-year-old female L98.495, non-pressure abd ulcer with muscle involvement CT DLP: 1169 mGycm. Automated exposure control for dose reduction was used. TECHNIQUE: Contiguous axial scanning of the abdomen and pelvis without IV contrast. Coronal and sagit macy reconstructions performed. FINDINGS: The heart is borderline enlarged without pericardial effusion. Contrast material seen within the distal esophagus. Prominent patchy opacity at the left base shows some improvement from prior exam, favoring atelectasi s. No pleural effusion. The liver is enlarged at 19.8 cm. Spleen measures 15.2 versus 16.0 cm, previously. Gallbladder is collapsed. Adrenal glands, kidneys, and pancreas show no gross abnormal body by noncon trast CT. No dilated small bowel, free fluid, or free air. Mild overall stool burden. No pericolonic inflammato ry change. No mesenteric or retroperitoneal adenopathy. Mixed fat and soft tissue density measuring 6.4 x 5.5 cm in the right lower quadrant mesentery appear s unchanged, possible scarring or fat necrosis. Large anterior abdominal wall wound with drainage via the umbilicus. The previous fluid collection ce ntered in the subcutaneous fat layer has decompressed. Some residual fluid and air remains within a t hick-walled cavity measuring 17.5 cm wide by 1.2 cm thick by 4.6 cm craniocaudal. This is in comparis on to 26.9 x 6.7 x 12.1 cm, previously. The previous drainage catheter has also been removed. Bladder urine distended. Uterus anteverted. Both ovaries are visualized. Pelvic phlebolith. No abnorm al fluid collection in the pelvis or pelvic lymphadenopathy. Bones: Moderate degenerative disc disease L5-S1 with facet arthropathy. IMPRESSION: 1. Anterior abdominal wall wound with drainage via the umbilicus. The previous underlying fluid tahira ection centered in the subcutaneous fat layer has decompressed. Some residual fluid and air remains w ithin a thick-walled cavity measuring 17.5 x 1.2 x 4.6 cm (versus 26.9 x 6.7 x 12.1 cm, previously). 2. Mixed fatty and soft tissue density measuring 6.4 x 5.5 cm in the right lower quadrant mesentery is unchanged, possible scarring or fat necrosis. 3. Hepatosplenomegaly (liver 19.8 cm and spleen 15.2 cm). Clinically correlate. 4. Contrast material in the distal esophagus could reflect esophageal dysmotility or GERD. 5. Residual but improving segmental atelectasis at the left lung base.
== END | disposition home or self-care (01) ==
LOC: RADCTMAIN 12:08
PROVIDERS: ATTEND Thoracic Surgery (Cardiothoracic Vascular Surgery)
DX: L98.495 Non-pressure chronic ulcer of skin of other sites with muscle involvement without evidence of necrosis (principal); R16.2 Hepatomegaly with splenomegaly, not elsewhere classified; K21.9 Gastro-esophageal reflux disease without esophagitis
CPT/HCPCS: 74176

== ENCOUNTER 2024-05-05 09:57 | Observation (INO) | payer BC ==
[2024-05-05] MEDS: IV FLUID CONTINUATION 1,000 ML IV ONE (10:19)
[2024-05-05 10:30] LABS: Glucose,Whole Blood 135 mg/dL (70-110)
[2024-05-05] MEDS: DEXAMETHASONE SOD PHOSPHATE 4 MG/ML 1 ML VIAL IVP ONE (10:42)
[2024-05-05] MEDS: ONDANSETRON 4 MG/2 ML VIAL IVP PRN (10:42)
[2024-05-05 10:43] LABS: Anisocytosis Slight; HCT 33.5 % (34.0-46.0); HGB 10.2 gm/dL (11.4-16.0); Hypochromasia Marked; MCHC 30.6 g/dL (31.0-37.0); Mean Platelet Volume 6.6; Microcytosis Moderate; Platelet Count 236 k/uL (150-450); RBC 4.65 m/uL (3.80-5.40); RDW 17.1 % (11.5-15.5); WBC 7.2 k/uL (3.8-10.6)
[2024-05-05] MEDS: LACTATED RINGERS 1,000 ML BAG IV STA (10:43)
[2024-05-05] MEDS: ACETAMINOPHEN TAB 500 MG TAB PO PRN (10:44)
[2024-05-05] MEDS ORDERED: PHENYLEPHRINE-0.9% NACL SYG 1,000 MCG/10 ML SYRINGE ONE (10:46)
[2024-05-05] MEDS ORDERED: SUCCINYLCHOLINE CHLORIDE 200 MG/10 ML VIAL IV ONE (10:46)
[2024-05-05] MEDS ORDERED: LIDOCAINE 1% INJ 10MG/ML (20 ML MDV) ONE (10:46)
[2024-05-05] MEDS ORDERED: PROPOFOL 10 MG/ML 20 ML VIAL IV ONE (10:46)
[2024-05-05] MEDS ORDERED: fentaNYL (PF) 50 MCG/ML 2 ML AMP ONE (10:46)
[2024-05-05] MEDS: HEPARIN SODIUM,PORCINE 5,000 UNIT/ML 1 ML VIAL SQ PRN (10:48)
[2024-05-05 10:56] LABS: African American GFR (CKD) >90 (>60 ml/min/1.73 sqM); Anion Gap 3 mmol/L; Blood Urea Nitrogen 31 mg/dL (7-17); Calcium 9.4 mg/dL (8.4-10.2); Carbon Dioxide 32 mmol/L (22-30); Chloride 104 mmol/L (98-107); Glucose 125 mg/dL (74-99); Non-African American GFR(CKD) >90 (>60 ml/min/1.73 sqM); Potassium 4.7 mmol/L (3.5-5.1); Sodium 139 mmol/L (137-145)
[2024-05-05] MEDS: SODIUM CHLORIDE 0.9% 50 ML with ceFAZolin 2 GM IV ONE (11:14)
[2024-05-05] MEDS ORDERED: traMADol 50 MG TAB PO PRN (11:56)
[2024-05-05] MEDS ORDERED: NALOXONE 0.4 MG/ML 1 ML VIAL IV PRN (11:56)
[2024-05-05] MEDS ORDERED: ONDANSETRON 4 MG/2 ML VIAL IVP PRN (11:56)
[2024-05-05] MEDS ORDERED: HYDROmorphone 1 MG/ML 1 ML SYRINGE IVP PRN (11:56)
[2024-05-05] MEDS ORDERED: HYDROcodone/APAP 5-325MG 1 EACH TAB PO PRN (11:56)
[2024-05-05] MEDS ORDERED: HYDROmorphone 0.5 MG/0.5 ML SYRINGE IVP PRN (11:56)
--- NOTE | 2024-05-05 12:08 | P.OP ---
Date of Procedure: 05/05/24 Procedure(s) Performed: PREOPERATIVE DIAGNOSIS: Abdominal wall recurrent fluid collection POSTOPERATIVE DIAGNOSIS: Same PROCEDURE: Incision drainage and debridement abdominal wall fluid collection SURGEON: Louisa EBL: 25 cc ANESTHESIA: General COMPLICATIONS: None OPERATIVE PROCEDURE: Patient placed on the operating table in supine position per the patient was placed under general anesthesia. Abdomen prepped and draped sterilely. The patient had a vertical curvilinear incision coming around the right side of the umbilicus. Just superior to the umbilicus was an open wound measuring 1 x 1 cm. Using a hemostat I was able to follow the tract of this fistulous opening into the larger cavity in the right anterior abdominal wall. I then made a triangular shaped incision encompassing a portion of the midline incision. That length of the incision was about 9 cm. I then came across again in a triangular shape to the right mid abdomen. The triangular incision dimensions were approximately 9 x 12 x 11 cm. Entrance into a large subcutaneous collection took place. The thick fibrous shell of this fluid collection was excised using electrocautery. The excisional debridement took place using both sharp dissection and cautery. The full extent of the debridement was approximately 100 cm. This was down to the superficial layer. No obvious muscle was identified or excised. It was unclear at the base of the fluid collection whether we were on muscle. This did not appear to be obvious mesh. There was no signs of fistulization. There was purulence within the fluid collection. I also debrided using the curette around the base of the wound. Once we had this area adequately opened and exposed areas were checked for bleeding. None were seen. Irrigation took place with saline. The wound was then packed with lightly moistened Kerlix roll with saline. Sterile outer dressings applied. DISPOSITION: Stable to recovery room
[2024-05-05 12:35] LABS: Glucose,Whole Blood 117 mg/dL (70-110)
[2024-05-05] MEDS: Pre Op ABX Message 1 EACH MISC MISCELLANE ONE (13:48)
--- NOTE | 2024-05-05 17:12 | P.CONS ---
History of Present Illness - Reason for Consult Consult date: 05/05/24 medical management - Chief Complaint abdominal wall abscess - History of Present Illness 58-year-old female with history of chronic hypoxic respiratory failure on 3 L, asthma, diabetes mellitus, hypothyroidism, depression and hypertension presented to the hospital because she had a nonhealing wound on her abdominal wall. Last January she initially had right-sided abdominal pain palpable mass, was diagnosed with seroma, had ultrasound-guided incision and drainage, drain placement and wound VAC eventually. She was initially treated with IV antibiotics for suspected infected seroma. Cultures from the wound at that time were negative so infected seroma was deemed less likely. she has been following with surgery in the office in that time and the wound was not healing well therefore she had reopening of that wound by surgery done today. She is currently feeling well. denies having any fevers or chills, no abdominal pain, no nausea or vomiting. She even denies these symptoms preoperatively. Of note her initial event was having hernia repair surgery done at [facility] in October 2023. In January she developed a large liters abdominal wall seroma as patient was not following postsurgical instructions including wearing abdominal binder at all times. Review of Systems complete review of system performed, pertinent positives per HPI, otherwise negative Past Medical History Past Medical History: Asthma, Diabetes Mellitus, Osteoarthritis (OA), Pulmonary Embolus (PE), Thyroid Disorder Additional Past Medical History / Comment(s): currently has wound vac to abdomen post abd surgery . hx of polyps History of Any Multi-Drug Resistant Organisms: None Reported Past Surgical History: Hernia Repair Additional Past Surgical History / Comment(s): ovarian cyst removal, colonoscopy, 01/2024 draining of abdominal fluid several times per pt with placement of wound vac. pt is poor historian Past Anesthesia/Blood Transfusion Reactions: No Reported Reaction, Motion Sickness Smoking Status: Never smoker - Past Family History Sister(s) Family Medical History: Cancer Additional Family Medical History / Comment(s): breast cancer Medications and Allergies Home Medications Medication Instructions Recorded Confirmed Type Glimepiride [Amaryl] 4 mg PO DAILY 12/20/23 05/05/24 History Levothyroxine Sodium [Synthroid] 175 mcg PO DAILY 12/20/23 05/05/24 History Sertraline [Zoloft] 100 mg PO DAILY 12/20/23 05/05/24 History metFORMIN HCL ER [Glucophage XR] 500 mg PO AC-BID 12/20/23 05/05/24 History Ferrous Sulfate [Iron (65 MG 325 mg PO W/LUNCH #30 tab 12/27/23 05/05/24 Rx Elemental)] Allergies Allergy/AdvReac Type Severity Reaction Status Date / Time No Known Allergies Allergy Verified 05/05/24 10:12 Physical Exam Vitals: Vital Signs Temp Pulse Resp BP Pulse Ox 05/05/24 13:35 74 16 105/70 92 L 05/05/24 13:05 77 17 113/72 92 L 05/05/24 12:35 80 17 115/73 92 L 05/05/24 12:20 84 15 125/82 99 05/05/24 12:06 96 16 114/78 98 05/05/24 10:21 97.3 F L 77 18 130/74 94 L Intake and Output 05/05/24 05/05/24 05/05/24 06:59 14:59 22:59 Intake Total 700 Output Total 10 Balance 690 Intake: IV 700 Output: Estimated Blood Loss 10 Other: Weight 102.8 kg Constitutional: No acute distress, conversant, pleasant Eyes:Anicteric sclerae, moist conjunctiva, no lid-lag, PERRLA, ENMT: Oropharynx clear, no erythema, exudates Neck: Supple, FROM, no masses, or JVD, No carotid bruits, No thyromegaly Lungs: Clear to auscultation, Clear to percussion, Normal respiratory effort, no accessory muscle use Cardiovascular: Heart regular in rate and rhythm, No murmurs, gallops, or rubs, No peripheral edema Abdominal: surgical scar. Abdomen is firm Slightly distended. Normoactive bowel sounds, No hepatomegaly, No splenomegaly, No palpable mass Skin: Normal temperature, tone, texture, turgor, no induration, No subcutaneous nodules, No rash, lesions, No ulcers Extremities: No digital cyanosis, No clubbing, Pedal pulses intact and symmetrical, Radial pulses intact and symmetrical, No calf tenderness Psychiatric: Alert and oriented to person, place and time, appropriate affect, intact judgement Neuro: Muscles Strength 5/5 in all 4 extremities, Sensation to light touch grossly present throughout, Cranial nerves II-XII grossly intact, no focal sensory deficits Results CBC & Chem 7: 05/05/24 10:33 05/05/24 10:33 Labs: Abnormal Lab Results - Last 24 Hours (Table) 05/05/24 05/05/24 05/05/24 Range/Units 10:29 10:33 10:33 Hgb 10.2 L (11.4-16.0) gm/dL Hct 33.5 L (34.0-46.0) % MCV 72.0 L (80.0-100.0) fL MCH 22.0 L (25.0-35.0) pg MCHC 30.6 L (31.0-37.0) g/dL RDW 17.1 H (11.5-15.5) % Carbon Dioxide 32 H (22-30) mmol/L BUN 31 H (7-17) mg/dL Creatinine 0.47 L (0.52-1.04) mg/dL Glucose 125 H (74-99) mg/dL POC Glucose (mg/dL) 135 H (70-110) mg/dL 05/05/24 Range/Units 12:33 Hgb (11.4-16.0) gm/dL Hct (34.0-46.0) % MCV (80.0-100.0) fL MCH (25.0-35.0) pg MCHC (31.0-37.0) g/dL RDW (11.5-15.5) % Carbon Dioxide (22-30) mmol/L BUN (7-17) mg/dL Creatinine (0.52-1.04) mg/dL Glucose (74-99) mg/dL POC Glucose (mg/dL) 117 H (70-110) mg/dL Assessment and Plan Plan: Abdominal wall seroma with inadequate wound healing surgical management Pain control per surgery Diabetes type 2 Hold oral hypoglycemics Sliding scale insulin with blood sugar checks every 6 hours. Hypothyroidism Stable Resume levothyroxine Depression/anxiety Stable Resume SSRI History of asthma, not in exacerbation Chronic hypoxic respiratory failure on 3 L -Continue DuoNebs as needed Recent history of acute PE Iron deficiency anemia, chronic, stable -was treated with Eliquis, follow-up computed tomography scan in March was negative for PE. Eliquis not among her current meds, likely d/clarice. -Hemoglobin stable DVT prophylaxis Heparin subcu
[2024-05-05 17:39] LABS: Glucose,Whole Blood 217 mg/dL (70-110)
[2024-05-05] MEDS: INSULIN ASPART (NovoLOG) 100 UNIT/ML VIAL SQ SCH (17:59)
[2024-05-05] MEDS: KETOROLAC 15 MG/ML 1 ML VIAL IVP SCH (17:59)
[2024-05-05 21:04] LABS: Glucose,Whole Blood 159 mg/dL (70-110)
[2024-05-05] MEDS: FAMOTIDINE 20 MG TAB PO SCH (21:33)
[2024-05-05] MEDS: DOCUSATE 100 MG CAP PO SCH (21:33)
[2024-05-05] MEDS: LACTATED RINGERS 1,000 ML IV SCH (21:33)
[2024-05-05] MEDS: HEPARIN SODIUM,PORCINE 5,000 UNIT/ML 1 ML VIAL SQ SCH (23:23)
[2024-05-06 06:12] LABS: Glucose,Whole Blood 131 mg/dL (70-110)
[2024-05-06] MEDS: LEVOTHYROXINE 100 MCG TAB PO SCH (06:17)
[2024-05-06] MEDS: LEVOTHYROXINE 75 MCG TAB PO SCH (06:18)
[2024-05-06] MEDS: SERTRALINE 100 MG TAB PO SCH (08:23)
[2024-05-06 09:17] LABS: Basophils # (A) 0.05 X 10*3/uL (0.00-0.10); Basophils % (A) 0.5 %; Eosinophils # (A) 0.09 X 10*3/uL (0.04-0.35); Eosinophils % (A) 0.9 %; HGB 9.7 g/dL (12.0-15.0); Lymphocytes % (A) 10.2 %; MCH 21.5 pg (27.0-32.0); MCHC 28.5 g/dL (32.0-37.0); MCV 75.4 FL (80.0-97.0); Mean Platelet Volume 9.7 FL (9.5-12.2); Monocytes % (A) 6.1 %; NRBC Per 100 WBC 0 X 10*3/uL (0.00-0.01); Neutrophils # (A) 7.99 X 10*3/uL (1.80-7.70); Neutrophils % (A) 81.9 %; Platelet Count 224 X 10*3/uL (140-440); RBC 4.51 X 10*6/uL (4.10-5.20); RDW 17.3 % (11.5-14.5); WBC 9.77 X 10*3/uL (4.50-10.00)
[2024-05-06 09:44] LABS: ALT 12 U/L (8-44); AST 14 U/L (13-35); Albumin 3.6 g/dL (3.8-4.9); Albumin/Globulin Ratio 1.44 Ratio (1.60-3.17); Alkaline Phosphatase 87 U/L (41-126); Blood Urea Nitrogen 18.1 mg/dL (9.0-27.0); Calcium 8.9 mg/dL (8.7-10.3); Carbon Dioxide 29.3 mmol/L (21.6-31.8); Chloride 101 mmol/L (96-109); Globulin 2.5 g/dL (1.6-3.3); Glucose 102 mg/dL (70-110); Sodium 141 mmol/L (135-145); Total Bilirubin <0.2 mg/dL (0.3-1.2); Total Protein 6.1 g/dL (6.2-8.2)
[2024-05-06 11:48] LABS: Glucose,Whole Blood 133 mg/dL (70-110)
--- NOTE | 2024-05-06 13:11 | P.PN ---
Subjective Progress Note Date: 05/06/24 CHIEF COMPLAINT: Abdominal wall recurrent fluid collection HISTORY OF PRESENT ILLNESS: Patient postop day #1 status post incision, drainage and debridement of abdominal wall fluid collection. Patient reports pain controlled. Denies any nausea or vomiting. Afebrile. WBC 7.2. Hemoglobin 10.2 tolerated clear liquid diet. Asking for advancement of diet. PHYSICAL EXAM: VITAL SIGNS: Reviewed. GENERAL: Well-developed in no acute distress. ABDOMEN: Soft. Nondistended. Incisional dressing with shadowing noted NEUROLOGIC: Alert and oriented. Cranial nerves II through XII grossly intact. ASSESSMENT: 1. Recurrent abdominal wall fluid collection status post incision, drainage and debridement PLAN: -Surgical dressing was pulled down by Dr. Jasso. Patient had evidence of bleeding. Dr. Jasso placed sutures. New dressing applied. Patient will be observed for another 24 hours. Okay to shower tomorrow and change packing in a.m. -Plan to place wound vac once home -Diet advanced to consistent carbohydrate at lunch Physician Statement Services Representative note has been reviewed by physician. Signing provider agrees with the documented findings, assessment, and plan of care. I have personally seen and examined the patient, reviewed the PIPE CLEANER /PAs history, exam and MDM and agree with the assessment and plan as written. Based on total visit time, I have performed more than 50% of the visit. As above: Patient doing well today. Denies pain. Dressing was removed. Area of bleeding was encountered and a 3-0 Vicryl stitch was used to control this area of bleeding. No further bleeding noted. Repacked with Kerlix roll. Plan showering in the morning. If doing well with shower and no further bleeding i ssues plan discharge home. Resume wound VAC once at home. Objective - Vital Signs Vital signs: Vital Signs Temp 97.6 F 05/06/24 07:25 Pulse 66 05/06/24 07:25 Resp 18 05/06/24 07:25 BP 100/67 05/06/24 07:25 Pulse Ox 95 05/06/24 07:25 FiO2 Intake & Output 05/05/24 05/06/24 05/06/24 18:59 06:59 18:59 Intake Total 700 Output Total 10 Balance 690 Weight 102.8 kg Intake: IV 700 Output: Estimated Blood Loss 10 Other: Voiding Method Toilet Toilet Diaper # Voids 1 2 - Labs CBC & Chem 7: 05/06/24 04:25 05/06/24 04:25 Labs: Abnormal Lab Results - Last 24 Hours (Table) 05/05/24 05/05/24 05/06/24 Range/Units 17:37 21:02 04:25 Hgb 9.7 L (12.0-15.0) g/dL Hct 34.0 L (37.2-46.3) % MCV 75.4 L (80.0-97.0) FL MCH 21.5 L (27.0-32.0) pg MCHC 28.5 L (32.0-37.0) g/dL RDW 17.3 H (11.5-14.5) % Neutrophils # 7.99 H (1.80-7.70) X 10*3/uL Creatinine (0.6-1.5) mg/dL BUN/Creatinine Ratio (12.00-20.00) Ratio POC Glucose (mg/dL) 217 H 159 H (70-110) mg/dL Total Bilirubin (0.3-1.2) mg/dL Total Protein (6.2-8.2) g/dL Albumin (3.8-4.9) g/dL Albumin/Globulin Ratio (1.60-3.17) Ratio 05/06/24 05/06/24 05/06/24 Range/Units 04:25 06:11 11:47 Hgb (12.0-15.0) g/dL Hct (37.2-46.3) % MCV (80.0-97.0) FL MCH (27.0-32.0) pg MCHC (32.0-37.0) g/dL RDW (11.5-14.5) % Neutrophils # (1.80-7.70) X 10*3/uL Creatinine 0.5 L (0.6-1.5) mg/dL BUN/Creatinine Ratio 36.20 H (12.00-20.00) Ratio POC Glucose (mg/dL) 131 H 133 H (70-110) mg/dL Total Bilirubin <0.2 L (0.3-1.2) mg/dL Total Protein 6.1 L (6.2-8.2) g/dL Albumin 3.6 L (3.8-4.9) g/dL Albumin/Globulin Ratio 1.44 L (1.60-3.17) Ratio
--- NOTE | 2024-05-06 16:00 | P.PN ---
Subjective Progress Note Date: 05/06/24 Patient was seen and examined. No acute events overnight. No complaints. General: non toxic, no distress, appears at stated age Derm: warm, dry Head: atraumatic, normocephalic, symmetric Eyes: EOMI, no lid lag, anicteric sclera Mouth: no lip lesion, mucus membranes moist Cardiovascular: Good distal perfusion in all 4 extremities Lungs: Breathing comfortably, no accessory muscle use Ext: no gross muscle atrophy, no edema, no contractures Neuro: no focal neuro deficits Psych: Alert, oriented, appropriate affect Abdominal binder in place with dressing c/d/i Diabetes mellitus Hypothyroidism Depression and Anxiety Abdominal wall seroma with inadequate wound healing Continue ISS with Accuchecks ACHS. Continue Synthroid 175 mcg PO QD. Continue Zoloft 100 mg PO QD. Managment of seroma status post I&D per surgery. CODE STATUS: FULL CODE DVT Prophylaxis: Heparin SQ GI Prophylaxis: Designated medical POA if patient is not able to make medical decisions for themselves: Objective - Vital Signs Vital signs: Vital Signs Temp 97.9 F 05/06/24 13:07 Pulse 65 05/06/24 13:07 Resp 17 05/06/24 13:07 BP 101/66 05/06/24 13:07 Pulse Ox 91 L 05/06/24 13:07 FiO2 Intake & Output 05/05/24 05/06/24 05/06/24 18:59 06:59 18:59 Intake Total 700 Output Total 10 Balance 690 Weight 102.8 kg Intake: IV 700 Output: Estimated Blood Loss 10 Other: Voiding Method Toilet Toilet Diaper # Voids 1 2 - Labs CBC & Chem 7: 05/06/24 04:25 05/06/24 04:25 Labs: Abnormal Lab Results - Last 24 Hours (Table) 05/05/24 05/05/24 05/06/24 Range/Units 17:37 21:02 04:25 Hgb 9.7 L (12.0-15.0) g/dL Hct 34.0 L (37.2-46.3) % MCV 75.4 L (80.0-97.0) FL MCH 21.5 L (27.0-32.0) pg MCHC 28.5 L (32.0-37.0) g/dL RDW 17.3 H (11.5-14.5) % Neutrophils # 7.99 H (1.80-7.70) X 10*3/uL Creatinine (0.6-1.5) mg/dL BUN/Creatinine Ratio (12.00-20.00) Ratio POC Glucose (mg/dL) 217 H 159 H (70-110) mg/dL Total Bilirubin (0.3-1.2) mg/dL Total Protein (6.2-8.2) g/dL Albumin (3.8-4.9) g/dL Albumin/Globulin Ratio (1.60-3.17) Ratio 05/06/24 05/06/24 05/06/24 Range/Units 04:25 06:11 11:47 Hgb (12.0-15.0) g/dL Hct (37.2-46.3) % MCV (80.0-97.0) FL MCH (27.0-32.0) pg MCHC (32.0-37.0) g/dL RDW (11.5-14.5) % Neutrophils # (1.80-7.70) X 10*3/uL Creatinine 0.5 L (0.6-1.5) mg/dL BUN/Creatinine Ratio 36.20 H (12.00-20.00) Ratio POC Glucose (mg/dL) 131 H 133 H (70-110) mg/dL Total Bilirubin <0.2 L (0.3-1.2) mg/dL Total Protein 6.1 L (6.2-8.2) g/dL Albumin 3.6 L (3.8-4.9) g/dL Albumin/Globulin Ratio 1.44 L (1.60-3.17) Ratio
[2024-05-06 17:09] LABS: Glucose,Whole Blood 165 mg/dL (70-110)
[2024-05-06 21:19] LABS: Glucose,Whole Blood 116 mg/dL (70-110)
[2024-05-06] MEDS: ACETAMINOPHEN TAB 325 MG TAB PO PRN (21:42)
[2024-05-07 07:31] LABS: Glucose,Whole Blood 166 mg/dL (70-110)
--- NOTE | 2024-05-07 08:34 | P.PN ---
Subjective Progress Note Date: 05/07/24 Patient was seen and examined. No acute events overnight. No complaints. General: non toxic, no distress, appears at stated age Derm: warm, dry Head: atraumatic, normocephalic, symmetric Eyes: EOMI, no lid lag, anicteric sclera Mouth: no lip lesion, mucus membranes moist Cardiovascular: Good distal perfusion in all 4 extremities Lungs: Breathing comfortably, no accessory muscle use Ext: no gross muscle atrophy, no edema, no contractures Neuro: no focal neuro deficits Psych: Alert, oriented, appropriate affect Abdominal binder in place with dressing c/d/i Microcytic anemia Diabetes mellitus Hypothyroidism Depression and Anxiety Abdominal wall seroma with inadequate wound healing Chronic. Recommend outpatient workup with PCP for microcytic anemia including preventative cancer screenings which was discussed with the patient. Continue ISS with Accuchecks ACHS. Continue Synthroid 175 mcg PO QD. Continue Zoloft 100 mg PO QD. Managment of seroma status post I&D per surgery. Medically stable for discharge. CODE STATUS: FULL CODE DVT Prophylaxis: Heparin SQ GI Prophylaxis: Designated medical POA if patient is not able to make medical decisions for themselves: Objective - Vital Signs Vital signs: Vital Signs Temp 97.5 F L 05/07/24 00:00 Pulse 58 L 05/07/24 00:00 Resp 16 05/07/24 00:00 BP 119/67 05/07/24 00:00 Pulse Ox 98 05/07/24 00:00 FiO2 Intake & Output 05/06/24 05/07/24 05/07/24 18:59 06:59 18:59 Other: Voiding Method Toilet Toilet Diaper Incontinent # Voids 1 5 - Labs CBC & Chem 7: 05/06/24 04:25 05/06/24 04:25 Labs: Abnormal Lab Results - Last 24 Hours (Table) 05/06/24 05/06/24 05/06/24 Range/Units 04:25 04:25 11:47 Hgb 9.7 L (12.0-15.0) g/dL Hct 34.0 L (37.2-46.3) % MCV 75.4 L (80.0-97.0) FL MCH 21.5 L (27.0-32.0) pg MCHC 28.5 L (32.0-37.0) g/dL RDW 17.3 H (11.5-14.5) % Neutrophils # 7.99 H (1.80-7.70) X 10*3/uL Creatinine 0.5 L (0.6-1.5) mg/dL BUN/Creatinine Ratio 36.20 H (12.00-20.00) Ratio POC Glucose (mg/dL) 133 H (70-110) mg/dL Total Bilirubin <0.2 L (0.3-1.2) mg/dL Total Protein 6.1 L (6.2-8.2) g/dL Albumin 3.6 L (3.8-4.9) g/dL Albumin/Globulin Ratio 1.44 L (1.60-3.17) Ratio 05/06/24 05/06/24 05/07/24 Range/Units 17:07 21:17 07:30 Hgb (12.0-15.0) g/dL Hct (37.2-46.3) % MCV (80.0-97.0) FL MCH (27.0-32.0) pg MCHC (32.0-37.0) g/dL RDW (11.5-14.5) % Neutrophils # (1.80-7.70) X 10*3/uL Creatinine (0.6-1.5) mg/dL BUN/Creatinine Ratio (12.00-20.00) Ratio POC Glucose (mg/dL) 165 H 116 H 166 H (70-110) mg/dL Total Bilirubin (0.3-1.2) mg/dL Total Protein (6.2-8.2) g/dL Albumin (3.8-4.9) g/dL Albumin/Globulin Ratio (1.60-3.17) Ratio Microbiology - Last 24 Hours (Table) 05/05/24 11:23 Gram Stain - Preliminary Abdomen Wound Culture - Preliminary
[2024-05-07 08:58] VITALS: TEMP 97.6
[2024-05-07 11:44] LABS: Glucose,Whole Blood 119 mg/dL (70-110)
--- NOTE | 2024-05-07 12:40 | P.DS ---
Providers Date of admission: 05/06/24 13:18 Expected date of discharge: 05/07/24 Attending physician: Benny Jasso Consults: 05/05/24 12:03 Consult Physician Routine Consulting Provider: Zhang Baxter Consult Reason/Comments: med mgmt Do you want consulting provider notified?: Yes Primary care physician: Stated None Hospital Course: Discharge diagnosis 1. Seroma. Recurrent abdominal wall fluid collection status post incision, drainage and debridement Hospital course This is a 58-year-old female with a recurrent seroma. She is status post incision, drainage and debridement of the fluid collection. She denies any abdominal pain. There had been some bleeding in the wound and Dr. Jasso did place sutures. And there has been no further bleeding. Patient is tolerating diet. She is afebrile. She has been up and ambulating. She has showered. She is stable for discharge. Please refer to chart for any further details. Patient to resume her wound VAC once at home. Physician Applications Support Lead note has been reviewed by physician. Signing provider agrees with the documented findings, assessment, and plan of care. Patient Condition at Discharge: Stable Plan - Discharge Summary Discharge Rx Participant: Yes New Discharge Prescriptions: New Acetaminophen Tab [Tylenol] 1,000 mg PO Q6HR PRN #30 tablet PRN Reason: Pain Continue metFORMIN HCL ER [Glucophage XR] 500 mg PO AC-BID Levothyroxine Sodium [Synthroid] 175 mcg PO DAILY Sertraline [Zoloft] 100 mg PO DAILY Glimepiride [Amaryl] 4 mg PO DAILY Ferrous Sulfate [Iron (65 MG Elemental)] 325 mg PO W/LUNCH #30 tab Discharge Medication List Glimepiride [Amaryl] 4 mg PO DAILY 12/20/23 [History] Levothyroxine Sodium [Synthroid] 175 mcg PO DAILY 12/20/23 [History] Sertraline [Zoloft] 100 mg PO DAILY 12/20/23 [History] metFORMIN HCL ER [Glucophage XR] 500 mg PO AC-BID 12/20/23 [History] Ferrous Sulfate [Iron (65 MG Elemental)] 325 mg PO W/LUNCH #30 tab 12/27/23 [Rx] Acetaminophen Tab [Tylenol] 1,000 mg PO Q6HR PRN #30 tablet 05/07/24 [Rx] Follow up Appointment(s)/Referral(s): Benny Jasso MD [Medical Doctor] - 1 Week [facility], [NON-STAFF] - As Needed Discharge Disposition: HOME WITH HOME HEALTH SERVICES
--- NOTE | 2024-05-07 15:20 | P.PN ---
Progress Note - Text Progress Note Date: 05/07/24 Patient has been cleared for discharge by Dr. Jasso without start date for [facility] home care to resume the placement of the wound vac. Patient had home care with previous wound vac prior to this admission. Social work has notified [facility] home care that wound vac needs to placed and that patient is being discharged. Patient has been given instructions to call home care service if she has not heard from them within 24 hours after discharge. If she gets no response then she was informed to call Dr. Jasso's office.
[2024-05-07 17:05] LABS: Glucose,Whole Blood 154 mg/dL (70-110)
[2024-05-07 18:39] VITALS: BP 108/72; PULSE 76; RESP 18
== END 2024-05-07 18:45 | disposition home health service (06) ==
LOC: OR 09:57 → 4SSUR 13:30 → OR 05-06 13:18 → 4SSUR 05-06 13:18 → 4FBP 05-06 15:02
PROVIDERS: ADMIT Surgery; ATTEND Surgery
DX: M96.842 Postprocedural seroma of a musculoskeletal structure following a musculoskeletal system procedure (principal); J96.11 Chronic respiratory failure with hypoxia; J45.909 Unspecified asthma, uncomplicated; E03.9 Hypothyroidism, unspecified; E11.9 Type 2 diabetes mellitus without complications; F32.A Depression, unspecified; I10 Essential (primary) hypertension; F41.9 Anxiety disorder, unspecified; D50.9 Iron deficiency anemia, unspecified; Z86.711 Personal history of pulmonary embolism; Z99.81 Dependence on supplemental oxygen; Z79.84 Long term (current) use of oral hypoglycemic drugs; Z79.890 Hormone replacement therapy; Z79.899 Other long term (current) drug therapy
CPT/HCPCS: 80048; 80053; 85025; 85027; 87070; 87075; 87205; 96361; 96372; 96374; 96376

== ENCOUNTER 2024-05-10 12:52 | Emergency (ER) | payer BC ==
[2024-05-10 13:08] VITALS: TEMP 97.8
--- NOTE | 2024-05-10 13:40 | ED ---
General Adult HPI - General Chief complaint: Recheck/Abnormal Lab/Rx Stated complaint: abd pain Time Seen by Provider: 05/10/24 13:13 Source: patient Mode of arrival: ambulatory Limitations: no limitations - History of Present Illness Initial comments: Dictation was produced using [employer] dictation software. please excuse any grammatical, word or spelling errors. Chief Complaint: 58-year-old female with bleeding wound History of Present Illness: Patient 58-year-old female she presents to the ER for bleeding wound. She gets wound packing regularly. She had a home health nurse come to visit her for wound change when checked. She had 1 check and home health care nurse noticed there was a small wound described by the patient has pulsatile bleeding. Wound was packed patient was told to come to the ER for possible cauterization. Patient has no other complaints. The ROS documented in this emergency department record has been reviewed and co nfirmed by me. Those systems with pertinent positive or negative responses have been documented in the HPI. All other systems are other negative and/or noncontributory. - Related Data Home Medications Medication Instructions Recorded Confirmed Glimepiride [Amaryl] 4 mg PO DAILY 12/20/23 05/05/24 Levothyroxine Sodium [Synthroid] 175 mcg PO DAILY 12/20/23 05/05/24 Sertraline [Zoloft] 100 mg PO DAILY 12/20/23 05/05/24 metFORMIN HCL ER [Glucophage XR] 500 mg PO AC-BID 12/20/23 05/05/24 Previous Rx's Medication Instructions Recorded Ferrous Sulfate [Iron (65 MG 325 mg PO W/LUNCH #30 tab 12/27/23 Elemental)] Acetaminophen Tab [Tylenol] 1,000 mg PO Q6HR PRN #30 tablet 05/07/24 Allergies Allergy/AdvReac Type Severity Reaction Status Date / Time No Known Allergies Allergy Verified 05/10/24 13:08 Review of Systems ROS Statement: Those systems with pertinent positive or pertinent negative responses have been documented in the HPI. ROS Other: All systems not noted in ROS Statement are negative. Past Medical History Past Medical History: Asthma, Diabetes Mellitus, Osteoarthritis (OA), Pulmonary Embolus (PE), Thyroid Disorder Additional Past Medical History / Comment(s): currently has wound vac to abdomen post abd surgery . hx of polyps History of Any Multi-Drug Resistant Organisms: None Reported Past Surgical History: Hernia Repair Additional Past Surgical History / Comment(s): ovarian cyst removal, colonoscopy, 01/2024 draining of abdominal fluid several times per pt with placement of wound vac. pt is poor historian Past Anesthesia/Blood Transfusion Reactions: No Reported Reaction, Motion Sickness Past Psychological History: Depression Smoking Status: Never smoker Past Alcohol Use History: Occasional Past Drug Use History: None Reported - Past Family History Sister(s) Family Medical History: Cancer Additional Family Medical History / Comment(s): breast cancer General Exam - General Exam Comments Initial Comments: PHYSICAL EXAM: General Impression: Alert and oriented x3, not in acute distress HEENT: Normocephalic atraumatic, extra-ocular movements intact, pupils equal and reactive to light bilaterally, mucous membranes moist. Cardiovascular: Heart regular rate and rhythm Chest: Able to complete full sentences, no retractions, no tachypnea Abdomen: abdomen soft, non-tender, non-distended, no organomegaly, large lower abdominal wound with no active bleeding. Wound shows healthy granulation tissue with no foul smell or purulent drainage Musculoskeletal: Pulses present and equal in all extremities, no peripheral edema Motor: no focal deficits noted Neurological: CN II-XII grossly intact, no focal motor or sensory deficits noted Skin: Intact with no visualized rashes Psych: Normal affect and mood Limitations: no limitations Course Vital Signs 05/10/24 13:06 Temperature 97.8 F Pulse Rate 94 Respiratory 16 Rate Blood Pressure 115/78 O2 Sat by Pulse 96 Oximetry Medical Decision Making - Medical Decision Making Was pt. sent in by a medical professional or institution (, PA, MEDICAL LOGISTICS SPECIALIST, urgent care, hospital, or assisted...) When possible be specific @ -No Did you speak to anyone other than the patient for history (EMS, parent, family, police, friend...)? What history was obtained from this source @ -No Did you review nursing and triage notes (agree or disagree)? Why? @ -I reviewed and agree with nursing and triage notes Were old charts reviewed (outside hosp., previous admission, EMS record, old EKG, old radiological studies, urgent care reports/EKG's, assisted records)? Report findings @ -No old charts were reviewed Differential Diagnosis (chest pain, altered mental status, abdominal pain women, abdominal pain men, vaginal bleeding, musculoskeletal, weakness, fever, dyspnea, syncope, headache, dizziness, GI bleed, back pain, seizure, CVA, palpatations, mental health)? @ -Arterial bleed, venous bleed, surgical site oozing, infection EKG interpreted by me (3pts min.). @ -None done X-rays interpreted by me (1pt min.). @ -None done CT interpreted by me (1pt min.). @ -None done U/S interpreted by me (1pt. min.). @ -None done What testing was considered but not performed or refused? (CT, X-rays, U/S, labs)? Why? @ -None What meds were considered but not given or refused? Why? @ -None Was smoking cessation discussed for >3mins.? @ -No Were there social determinants of health that impacted care today? How? (Homelessness, low income, unemployed, alcoholism, drug addiction, transportation, low edu. Level, literacy, decrease access to med. care, long term, rehab)? @ -No Was there de-escalation of care discussed even if they declined (Discuss DNR or withdrawal of care, Hospice)? DNR status @ -No What co-morbidities impacted this encounter? (DM, HTN, Smoking, COPD, CAD, Cancer, CVA, ARF, Chemo, Hep., AIDS, mental health diagnosis, sleep apnea, morbid obesity)? @ -None Was patient admitted / discharged? Hospital course, mention meds given and route, prescriptions, significant lab abnormalities, going to OR and other pertinent info. @ -58-year-old female presents to the emergency department for concerns of bleeding wound. Vital signs stable. Wound pack was removed. Abdominal wound was evaluated thoroughly. There is no active bleeding. Wound was repacked patient discharged. Did you discuss the management of the patient with other professionals (professionals i.e. , PA, MEDICAL LOGISTICS SPECIALIST, lab, RT, psych nurse, social services analyst, supervisor pipe joints, teacher, environmental health officer, protective services case worker)? Give summary @ -No Was critical care preformed (if so, how long)? @ -No Undiagnosed new problem with uncertain prognosis? @ -No Drug Therapy requiring intensive monitoring for toxicity (Heparin, Nitro, Insulin, Cardizem)? @ -No Were any procedures done? @ -No Diagnosis/symptom? Acute, or Chronic, or Acute on Chronic? Uncomplicated (without systemic symptoms) or Complicated (systemic symptoms)? @ -Wound evaluation Side effects of treatment? @ -No Exacerbation, Progression, or Severe Exacerbation? @ -No Poses a threat to life or bodily function? How? (Chest pain, [place], [place], pneumonia, PE, COPD, DKA, ARF, appy, cholecystitis, CVA, Diverticulitis, Homicidal, Suicidal, threat to staff... and all critical care pts) @ -No Disposition Clinical Impression: Chronic wound Disposition: HOME SELF-CARE Condition: Good Instructions (If sedation given, give patient instructions): Chronic Wound Care (ED) Is patient prescribed a controlled substance at d/c from ED?: No Referrals: Samuel Melgar MD [Primary Care Provider] - 1-2 days Time of Disposition: 13:39
[2024-05-10 16:12] VITALS: BP 112/76; PULSE 84; RESP 18
== END 2024-05-10 16:13 | disposition home or self-care (01) ==
LOC: EC 12:52
DX: R10.9 Unspecified abdominal pain
CPT/HCPCS: 99283

== ENCOUNTER 2024-05-28 15:55 | Inpatient (IN) | payer BC ==
--- NOTE | 2024-05-28 16:21 | ED ---
Recheck HPI - General Chief Complaint: Wound/Laceration Stated Complaint: open trauma wound Time Seen by Provider: 05/28/24 16:01 Source: patient, EMS, old records reviewed Mode of arrival: EMS Limitations: no limitations - History of Present Illness Initial Comments: This is a 58-year-old female to ER for evaluation of postoperative wound and fever. At this time patient presents today for possible wound infection fever and rash and sent in by home nurse, no cough no congestion no nausea vomiting or diarrhea no dysuria MD Complaint: wound re-check, abnormal lab (Fevers), needs IV antibiotics -: days(s) Returns Today for: Called Because of Abnormal Lab/Test, needs IV antibiotics, persistent/worsening pain related to initial visit Symptoms Since Prior Visit: worsening pain, worsening swelling, worsening redness, fever Context: planned re-check, called for abnormal lab result Associated Symptoms: none Treatments Prior to Arrival: other (0) - Related Data Home Medications Medication Instructions Recorded Confirmed Glimepiride [Amaryl] 4 mg PO DAILY 12/20/23 05/28/24 Levothyroxine Sodium [Synthroid] 175 mcg PO DAILY 12/20/23 05/28/24 Sertraline [Zoloft] 100 mg PO DAILY 12/20/23 05/28/24 Ferrous Sulfate [Iron (65 MG 325 mg PO DAILY 05/28/24 05/28/24 Elemental)] Furosemide [Lasix] 20 mg PO DAILY 05/28/24 05/28/24 Tolterodine ER [Detrol LA] 4 mg PO DIRECTED 05/28/24 05/28/24 metFORMIN HCL 1,000 mg PO DAILY 05/28/24 05/28/24 Previous Rx's Medication Instructions Recorded Acetaminophen Tab [Tylenol] 1,000 mg PO Q6HR PRN #30 tablet 05/07/24 Amoxic-Pot Clav 875-125Mg 1 tab PO BID 10 Days #20 tab 06/02/24 [Augmentin 875-125] Allergies Allergy/AdvReac Type Severity Reaction Status Date / Time No Known Allergies Allergy Verified 05/28/24 16:10 Review of Systems ROS Statement: Those systems with pertinent positive or pertinent negative responses have been documented in the HPI. ROS Other: All systems not noted in ROS Statement are negative. Past Medical History Past Medical History: Asthma, Diabetes Mellitus, Osteoarthritis (OA), Pulmonary Embolus (PE), Thyroid Disorder Additional Past Medical History / Comment(s): currently has wound vac to abdomen post abd surgery . hx of polyps History of Any Multi-Drug Resistant Organisms: None Reported Past Surgical History: Hernia Repair Additional Past Surgical History / Comment(s): ovarian cyst removal, colonoscopy, 01/2024 draining of abdominal fluid several times per pt with placement of wound vac. pt is poor historian Past Anesthesia/Blood Transfusion Reactions: No Reported Reaction, Motion Sickness Past Psychological History: Depression Smoking Status: Never smoker Past Alcohol Use History: Occasional Past Drug Use History: None Reported - Past Family History Sister(s) Family Medical History: Cancer Additional Family Medical History / Comment(s): breast cancer General Exam Limitations: no limitations General appearance: alert, in no apparent distress Head exam: Present: atraumatic, normocephalic, normal inspection Eye exam: Present: normal appearance, PERRL, EOMI. Absent: scleral icterus, conjunctival injection, periorbital swelling ENT exam: Present: normal exam, mucous membranes moist Neck exam: Present: normal inspection. Absent: tenderness, meningismus, lymphadenopathy Respiratory exam: Present: normal lung sounds bilaterally. Absent: respiratory distress, wheezes, rales, rhonchi, stridor Cardiovascular Exam: Present: regular rate, normal rhythm, normal heart sounds. Absent: systolic murmur, diastolic murmur, rubs, gallop, clicks GI/Abdominal exam: Present: soft, normal bowel sounds. Absent: distended, tenderness, guarding, rebound, rigid Extremities exam: Present: normal inspection, full ROM, normal capillary refill. Absent: tenderness, pedal edema, joint swelling, calf tenderness Back exam: Present: normal inspection Neurological exam: Present: alert, oriented X3, CN II-XII intact Psychiatric exam: Present: normal affect, normal mood Skin exam: Present: warm, dry, intact, normal color. Absent: rash Course Vital Signs 05/28/24 05/28/24 05/28/24 16:06 16:56 17:00 Temperature 101.0 F H Pulse Rate 106 H 109 H 94 Respiratory 20 20 20 Rate Blood Pressure 103/53 110/64 121/54 O2 Sat by Pulse 89 L 100 99 Oximetry 05/28/24 05/28/24 05/28/24 17:30 18:00 18:30 Temperature 98.6 F Pulse Rate 88 89 82 Respiratory 20 21 19 Rate Blood Pressure 105/51 88/46 87/46 O2 Sat by Pulse 95 95 96 Oximetry 05/28/24 05/28/24 05/28/24 19:00 19:18 19:30 Temperature 98.3 F Pulse Rate 80 80 80 Respiratory 17 20 18 Rate Blood Pressure 83/46 73/57 73/57 O2 Sat by Pulse 95 95 95 Oximetry 05/28/24 05/28/24 05/28/24 19:48 19:58 20:24 Temperature Pulse Rate 79 80 80 Respiratory 22 22 Rate Blood Pressure 77/42 78/52 O2 Sat by Pulse 93 L 94 L Oximetry 05/28/24 05/28/24 05/28/24 20:30 20:38 21:08 Temperature 98.4 F 98.4 F Pulse Rate 79 78 81 Respiratory 18 18 Rate Blood Pressure 88/55 88/53 O2 Sat by Pulse 94 L 95 Oximetry 05/28/24 05/28/24 21:35 21:43 Temperature 97.7 F 98.1 F Pulse Rate 78 75 Respiratory 18 18 Rate Blood Pressure 84/49 88/55 O2 Sat by Pulse 96 96 Oximetry - Reevaluation(s) Reevaluation #1: Medical records reviewed Reevaluation #2: Patient symptoms unchanged Reevaluation #3: Informed of results questions answered Reevaluation #4: Was pt. sent in by a medical professional or institution (, PA, HOSTING ENGINEER, urgent care, hospital, or senior care...) When possible be specific @ -no Did you speak to anyone other than the patient for history (EMS, parent, family, police, friend...)? What history was obtained from this source @ -no Did you review nursing and triage notes (agree or disagree)? Why? @ -agree Are old charts reviewed (outside hosp., previous admission, EMS record, old EKG, old radiological studies, urgent care reports/EKG's, senior care records)? Report findings @ -yes Differential Diagnosis (chest pain, altered mental status, abdominal pain women, abdominal pain men, vaginal bleeding, weakness, fever, dyspnea, syncope, headache, dizziness, GI bleed, back pain, seizure, CVA, palpatations, mental health, musculoskeletal)? @ -prior EKG interpreted by me (3pts min.). @ -yes X-rays interpreted by me (1pt min.). @ -yes negative for acute disease CT interpreted by me (1pt min.). @ -no U/S interpreted by me (1pt. min.). @ -Yes negative for acute disease What testing was considered but not performed or refused? (CT, X-rays, U/S, labs)? Why? @ -none What meds were considered but not given or refused? Why? @ -none Did you discuss the management of the patient with other professionals (professionals i.e. , PA, HOSTING ENGINEER, lab, RT, psych nurse, sr. social media & mobile manager, regional refrigerated cdl truck driver, teacher, freedom of information officer, disability case manager)? Give summary @ -no Was smoking cessation discussed for >3mins.? @ -no Was critical care preformed (if so, how long)? @ -no Were there social determinants of health that impacted care today? How? (Homelessness, low income, unemployed, alcoholism, drug addiction, transpor tation, low edu. Level, literacy, decrease access to med. care, detention, rehab)? @ -none Was there de-escalation of care discussed even if they declined (Discuss DNR or withdrawal of care, Hospice)? DNR status @ -no What co-morbidities impacted this encounter? (DM, HTN, Smoking, COPD, CAD, Cancer, CVA, ARF, Chemo, Hep., AIDS, mental health diagnosis, sleep apnea, morbid obesity)? @ -none Was patient admitted / discharged? Hospital course, mention meds given and route, prescriptions, significant lab abnormalities, going to OR and other pertinent info. @ - 58 female to ER for postoperative infection, patient has likely wound incision infection with fever and cellulitis. Patient admitted on antibiotics and can be admitted for further evaluation and supportive care Admitted Undiagnosed new problem with uncertain prognosis? @ -no Drug Therapy requiring intensive monitoring for toxicity (Heparin, Nitro, Insulin, Cardizem)? @ -no Were any procedures done? @ -no Diagnosis/symptom? @ -Postoperative infection Acute, or Chronic, or Acute on Chronic? @ -Acute Uncomplicated (without systemic symptoms) or Complicated (systemic symptoms)? @ -Complicated Side effects of treatment? @ -no Exacerbation, Progression, or Severe Exacerbation? @ -exacerbation Poses a threat to life or bodily function? How? (Chest pain, [place], [place], pneumonia, PE, COPD, DKA, ARF, appy, cholecystitis, CVA, Diverticulitis, Homicidal, Suicidal, threat to staff... and all critical care pts) @ -yes fever and postop infection Reevaluation #5: Differential Dyspnea: Coronary syndrome, arrhythmia, tamponade, asthma, COPD, pulmonary embolism, pneumonia, pneumothorax, pulmonary effusion, anaphylaxis, diabetic ketoacidosis, flailed chest, pulmonary contusion, diaphragmatic rupture, anemia, neuromuscular, this is not meant to be an all-inclusive list. - Consultations Consultation #1: Admitting physicians who agreed to admit this patient Medical Decision Making - Medical Decision Making 58 female to ER for postoperative infection, patient has likely wound incision infection with fever and cellulitis. Patient admitted on antibiotics and can be admitted for further evaluation and supportive care - Lab Data Result diagrams: 06/02/24 06:26 06/02/24 06:26 Lab Results 05/28/24 05/28/24 05/28/24 Range/Units 00:50 00:50 00:50 WBC 9.3 (3.8-10.6) k/uL RBC 4.42 (3.80-5.40) m/uL Hgb 9.5 L (11.4-16.0) gm/dL Hct 32.2 L (34.0-46.0) % MCV 72.9 L (80.0-100.0) fL MCH 21.4 L (25.0-35.0) pg MCHC 29.4 L (31.0-37.0) g/dL RDW 16.1 H (11.5-15.5) % Plt Count 271 (150-450) k/uL MPV 7.0 Neutrophils % 92 % Lymphocytes % 3 % Monocytes % 2 % Eosinophils % 2 % Basophils % 0 % Neutrophils # 8.5 H (1.3-7.7) k/uL Lymphocytes # 0.3 L (1.0-4.8) k/uL Monocytes # 0.2 (0-1.0) k/uL Eosinophils # 0.2 (0-0.7) k/uL Basophils # 0.0 (0-0.2) k/uL Hypochromasia Marked Anisocytosis Slight Microcytosis Moderate PT (10.0-12.5) sec INR (<1.2) APTT (22.0-30.0) sec VBG pH (7.31-7.41) VBG pCO2 (37-51) mmHg VBG HCO3 (24-28) mmol/L Sodium 135 L (137-145) mmol/L Potassium 4.7 (3.5-5.1) mmol/L Chloride 104 (98-107) mmol/L Carbon Dioxide 23 (22-30) mmol/L Anion Gap 8 mmol/L BUN 17 (7-17) mg/dL Creatinine 0.55 (0.52-1.04) mg/dL Est GFR (CKD-EPI)AfAm >90 (>60 ml/min/1.73 sqM) Est GFR (CKD-EPI)NonAf >90 (>60 ml/min/1.73 sqM) Glucose 259 H (74-99) mg/dL Plasma Lactic Acid Kip (0.7-2.0) mmol/L Calcium 7.6 L (8.4-10.2) mg/dL Phosphorus (2.5-4.5) mg/dL Magnesium 1.7 (1.6-2.3) mg/dL Total Bilirubin (0.2-1.3) mg/dL AST (14-36) U/L ALT (4-34) U/L Alkaline Phosphatase (38-126) U/L Ammonia <9 (<30) umol/L Troponin I (0.000-0.034) ng/mL NT-Pro-B Natriuret Pep pg/mL Total Protein (6.3-8.2) g/dL Albumin (3.5-5.0) g/dL Procalcitonin (0.02-0.50) ng/mL 05/28/24 05/28/24 05/28/24 Range/Units 00:50 16:41 16:41 WBC 7.5 (3.8-10.6) k/uL RBC 4.39 (3.80-5.40) m/uL Hgb 9.6 L (11.4-16.0) gm/dL Hct 30.6 L (34.0-46.0) % MCV 69.7 L (80.0-100.0) fL MCH 21.8 L (25.0-35.0) pg MCHC 31.4 (31.0-37.0) g/dL RDW 15.9 H (11.5-15.5) % Plt Count 244 (150-450) k/uL MPV 7.1 Neutrophils % 84 % Lymphocytes % 3 % Monocytes % 4 % Eosinophils % 8 % Basophils % 0 % Neutrophils # 6.3 (1.3-7.7) k/uL Lymphocytes # 0.2 L (1.0-4.8) k/uL Monocytes # 0.3 (0-1.0) k/uL Eosinophils # 0.6 (0-0.7) k/uL Basophils # 0.0 (0-0.2) k/uL Hypochromasia Marked Anisocytosis Microcytosis Marked PT 11.4 (10.0-12.5) sec INR 1.1 (<1.2) APTT 26.6 (22.0-30.0) sec VBG pH (7.31-7.41) VBG pCO2 (37-51) mmHg VBG HCO3 (24-28) mmol/L Sodium (137-145) mmol/L Potassium (3.5-5.1) mmol/L Chloride (98-107) mmol/L Carbon Dioxide (22-30) mmol/L Anion Gap mmol/L BUN (7-17) mg/dL Creatinine (0.52-1.04) mg/dL Est GFR (CKD-EPI)AfAm (>60 ml/min/1.73 sqM) Est GFR (CKD-EPI)NonAf (>60 ml/min/1.73 sqM) Glucose (74-99) mg/dL Plasma Lactic Acid Kip (0.7-2.0) mmol/L Calcium (8.4-10.2) mg/dL Phosphorus (2.5-4.5) mg/dL Magnesium (1.6-2.3) mg/dL Total Bilirubin (0.2-1.3) mg/dL AST (14-36) U/L ALT (4-34) U/L Alkaline Phosphatase (38-126) U/L Ammonia (<30) umol/L Troponin I (0.000-0.034) ng/mL NT-Pro-B Natriuret Pep pg/mL Total Protein (6.3-8.2) g/dL Albumin (3.5-5.0) g/dL Procalcitonin 0.71 H (0.02-0.50) ng/mL 05/28/24 05/28/24 05/28/24 Range/Units 16:41 16:41 16:41 WBC (3.8-10.6) k/uL RBC (3.80-5.40) m/uL Hgb (11.4-16.0) gm/dL Hct (34.0-46.0) % MCV (80.0-100.0) fL MCH (25.0-35.0) pg MCHC (31.0-37.0) g/dL RDW (11.5-15.5) % Plt Count (150-450) k/uL MPV Neutrophils % % Lymphocytes % % Monocytes % % Eosinophils % % Basophils % % Neutrophils # (1.3-7.7) k/uL Lymphocytes # (1.0-4.8) k/uL Monocytes # (0-1.0) k/uL Eosinophils # (0-0.7) k/uL Basophils # (0-0.2) k/uL Hypochromasia Anisocytosis Microcytosis PT (10.0-12.5) sec INR (<1.2) APTT (22.0-30.0) sec VBG pH (7.31-7.41) VBG pCO2 (37-51) mmHg VBG HCO3 (24-28) mmol/L Sodium 134 L (137-145) mmol/L Potassium 2.8 L (3.5-5.1) mmol/L Chloride 95 L (98-107) mmol/L Carbon Dioxide 31 H (22-30) mmol/L Anion Gap 8 mmol/L BUN 22 H (7-17) mg/dL Creatinine 0.61 (0.52-1.04) mg/dL Est GFR (CKD-EPI)AfAm >90 (>60 ml/min/1.73 sqM) Est GFR (CKD-EPI)NonAf >90 (>60 ml/min/1.73 sqM) Glucose 250 H (74-99) mg/dL Plasma Lactic Acid Kip 1.5 (0.7-2.0) mmol/L Calcium 8.7 (8.4-10.2) mg/dL Phosphorus 2.7 (2.5-4.5) mg/dL Magnesium 1.7 (1.6-2.3) mg/dL Total Bilirubin 0.5 (0.2-1.3) mg/dL AST 52 H (14-36) U/L ALT 67 H (4-34) U/L Alkaline Phosphatase 245 H (38-126) U/L Ammonia (<30) umol/L Troponin I <0.012 (0.000-0.034) ng/mL NT-Pro-B Natriuret Pep 129 pg/mL Total Protein 5.8 L (6.3-8.2) g/dL Albumin 3.1 L (3.5-5.0) g/dL Procalcitonin (0.02-0.50) ng/mL 05/28/24 Range/Units 16:41 WBC (3.8-10.6) k/uL RBC (3.80-5.40) m/uL Hgb (11.4-16.0) gm/dL Hct (34.0-46.0) % MCV (80.0-100.0) fL MCH (25.0-35.0) pg MCHC (31.0-37.0) g/dL RDW (11.5-15.5) % Plt Count (150-450) k/uL MPV Neutrophils % % Lymphocytes % % Monocytes % % Eosinophils % % Basophils % % Neutrophils # (1.3-7.7) k/uL Lymphocytes # (1.0-4.8) k/uL Monocytes # (0-1.0) k/uL Eosinophils # (0-0.7) k/uL Basophils # (0-0.2) k/uL Hypochromasia Anisocytosis Microcytosis PT (10.0-12.5) sec INR (<1.2) APTT (22.0-30.0) sec VBG pH 7.42 H (7.31-7.41) VBG pCO2 49 (37-51) mmHg VBG HCO3 32 H (24-28) mmol/L Sodium (137-145) mmol/L Potassium (3.5-5.1) mmol/L Chloride (98-107) mmol/L Carbon Dioxide (22-30) mmol/L Anion Gap mmol/L BUN (7-17) mg/dL Creatinine (0.52-1.04) mg/dL Est GFR (CKD-EPI)AfAm (>60 ml/min/1.73 sqM) Est GFR (CKD-EPI)NonAf (>60 ml/min/1.73 sqM) Glucose (74-99) mg/dL Plasma Lactic Acid Kip (0.7-2.0) mmol/L Calcium (8.4-10.2) mg/dL Phosphorus (2.5-4.5) mg/dL Magnesium (1.6-2.3) mg/dL Total Bilirubin (0.2-1.3) mg/dL AST (14-36) U/L ALT (4-34) U/L Alkaline Phosphatase (38-126) U/L Ammonia (<30) umol/L Troponin I (0.000-0.034) ng/mL NT-Pro-B Natriuret Pep pg/mL Total Protein (6.3-8.2) g/dL Albumin (3.5-5.0) g/dL Procalcitonin (0.02-0.50) ng/mL - EKG Data -: EKG Interpreted by Me (EKG is sinus tachycardia 104 GA 156 QRS 95 QTc 379) - Radiology Data Radiology results: report reviewed (Ultrasound gallbladder chest x-ray is negative for significant acute disease), image reviewed Disposition Clinical Impression: Abdominal wall cellulitis, Abdominal wall abscess, Open abdominal wall wound, Chronic wound Disposition: ADMITTED IP TO THIS HOSP Condition: Stable Is patient prescribed a controlled substance at d/c from ED?: No
[2024-05-28] MEDS: SODIUM CHLORIDE 0.9% 1,000 ML IV STA ×4 (16:36→18:06)
[2024-05-28] MEDS: DEXAMETHASONE SOD PHOSPHATE 10 MG/ML 1 ML VIAL IVP STA (16:36)
[2024-05-28] MEDS: diphenhydrAMINE 50 MG/ML 1 ML VIAL IVP STA (16:44)
[2024-05-28] MEDS: FAMOTIDINE 20 MG/2 ML VIAL IV STA (16:44)
[2024-05-28] MEDS: MORPHINE SULFATE 4 MG/ML SYRINGE IV STA (16:44)
[2024-05-28] MEDS: ACETAMINOPHEN IV (For NPO) 1,000 MG in EMPTY BAG 1 BAG IVPB STA (16:49)
[2024-05-28] MEDS: IBUPROFEN IV 800 MG in SODIUM CHLORIDE 0.9% 250 ML IV ONE (16:50)
[2024-05-28 16:59] LABS: Basophils % (A) 0 %; Eosinophils # (A) 0.6 k/uL (0-0.7); Eosinophils % (A) 8 %; HCT 30.6 % (34.0-46.0); HGB 9.6 gm/dL (11.4-16.0); Hypochromasia Marked; Lymphocytes # (A) 0.2 k/uL (1.0-4.8); Lymphocytes % (A) 3 %; MCH 21.8 pg (25.0-35.0); MCHC 31.4 g/dL (31.0-37.0); MCV 69.7 fL (80.0-100.0); Mean Platelet Volume 7.1; Microcytosis Marked; Monocytes # (A) 0.3 k/uL (0-1.0); Monocytes % (A) 4 %; Neutrophils # (A) 6.3 k/uL (1.3-7.7); Neutrophils % (A) 84 %; Platelet Count 244 k/uL (150-450); RBC 4.39 m/uL (3.80-5.40); RDW 15.9 % (11.5-15.5); WBC 7.5 k/uL (3.8-10.6)
[2024-05-28 17:08] LABS: INR 1.1 (<1.2); Partial Thromboplastin Time 26.6 sec (22.0-30.0); Prothrombin Time 11.4 sec (10.0-12.5)
[2024-05-28 17:09] LABS: ALT 67 U/L (4-34); AST 52 U/L (14-36); African American GFR (CKD) >90 (>60 ml/min/1.73 sqM); Albumin 3.1 g/dL (3.5-5.0); Alkaline Phosphatase 245 U/L (38-126); Anion Gap 8 mmol/L; Blood Urea Nitrogen 22 mg/dL (7-17); Calcium 8.7 mg/dL (8.4-10.2); Carbon Dioxide 31 mmol/L (22-30); Chloride 95 mmol/L (98-107); Glucose 250 mg/dL (74-99); Magnesium 1.7 mg/dL (1.6-2.3); Non-African American GFR(CKD) >90 (>60 ml/min/1.73 sqM); Phosphorus 2.7 mg/dL (2.5-4.5); Potassium 2.8 mmol/L (3.5-5.1); Sodium 134 mmol/L (137-145); Total Bilirubin 0.5 mg/dL (0.2-1.3); Total Protein 5.8 g/dL (6.3-8.2)
[2024-05-28 17:15] LABS: NT-Pro-B-Type Natriuretic Pept 129 pg/mL
[2024-05-28 17:26] LABS: VBG PH 7.42 (7.31-7.41)
--- NOTE | 2024-05-28 17:31 | XR ---
EXAMINATION TYPE: XR chest 1V portable DATE OF EXAM: 05/28/2024 COMPARISON: 01/27/2024 INDICATION: Short of breath wound infection, fever TECHNIQUE: Single frontal view of the chest is obtained. FINDINGS: The heart size is enlarged. The pulmonary vasculature is normal. Minimal infiltrate may be at the left costophrenic angle. IMPRESSION: 1. There may be some minimal infiltrate at the left costophrenic angle. 2. Mild cardiomegaly [facility], , 05/28/2024 5:28 PM
[2024-05-28] MEDS ORDERED: PNEUMONIA PROTOCOL UTILIZED 1 EACH MISC PO PRN (17:53)
[2024-05-28] MEDS: SODIUM CHLORIDE 0.9% 1,000 ML IV SCH (18:06)
[2024-05-28] MEDS: LEVOFLOXACIN 750MG-D5W PMX 750 MG in DEXTROSE/WATER 1 150ML.BAG IVPB STA (18:30)
[2024-05-28] MEDS ORDERED: VANCOMYCIN IV PER PHARMACY 1 EACH MISC MISCELLANE PRN (18:35)
[2024-05-28] MEDS: methylPREDNISolone SOD SUCCI 125 MG/2 ML VIAL IV STA (18:55)
[2024-05-28] MEDS: PIPERACILLIN-TAZOBACTAM 3.375 GM in SODIUM CHLORIDE 0.9% 100 ML IVPB STA (18:57)
[2024-05-28] MEDS: VANCOMYCIN 1,750 MG in SODIUM CHLORIDE 0.9% 500 ML 500 ML IVPB ONE (19:52)
[2024-05-28] MEDS ORDERED: MORPHINE SULFATE 4 MG/ML SYRINGE IV PRN (20:06)
[2024-05-28] MEDS ORDERED: LORazepam 2 MG/ML INJ IV PRN (20:06)
[2024-05-28] MEDS ORDERED: NALOXONE 0.4 MG/ML 1 ML VIAL IV PRN (20:06)
[2024-05-28] MEDS: IPRATROPIUM-ALBUTEROL 3 ML NEB INHALATION STA (20:21)
[2024-05-28] MEDS: ALBUTEROL NEBULIZED 2.5 MG/3 ML INHALATION SCH (20:24)
--- NOTE | 2024-05-28 20:53 | XR ---
EXAMINATION TYPE: XR chest 1V DATE OF EXAM: 05/28/2024 8:48 PM CLINICAL INDICATION:Female, 58 years old with history of central line placement; [facility] COMPARISON: Chest radiographs from same day. TECHNIQUE: XR chest 1V Frontal view of the chest. FINDINGS: Lungs/Pleura: Bilateral hazy airspace opacities are identified. Pulmonary vascularity: Pulmonary vascular congestion. Heart/mediastinum: Mild cardiomegaly. Musculoskeletal: No acute osseous pathology. Other findings: Interval placement of a right-sided central catheter with distal tip within the regio n of the right atria, IMPRESSION: 1. Stable cardiomegaly and mild pulmonary vascular congestion. 2. Right central line catheter terminating in the right atrium. Recommend retraction of 5 cm for opti mal positioning. [facility], , 05/28/2024 8:51 PM
--- NOTE | 2024-05-28 20:56 | US ---
EXAMINATION TYPE: US gallbladder DATE OF EXAM: 05/28/2024 COMPARISON: CT 04/08/2024 CLINICAL INDICATION: Female, 58 years old with history of pauin; Pain. PT unable to take breaths or move positions. Hx hernia repair surgery 3 weeks ago. Wound is still open TECHNIQUE: Multiple sonographic images of the right upper quadrant are obtained. FINDINGS: EXAM MEASUREMENTS: Liver Length: 19.4 cm Gallbladder Wall: 0.3cm CBD: 0.7 cm Right Kidney: 10.3 x 4.1 x 4.9cm RECONSIGNMENT CLERK NOTES:Slightly limited due to patient unable to roll LLD or take breaths. Pancreas: Appears slightly echogenic. Pancreatic duct seen, measures 2mm Liver: Hepatomegaly. WNL as best visualized Gallbladder: wnl as best seen, patient unable to roll LLD to evaluate Evidence for sonographic Nava's sign: No CBD: Dilated Right Kidney: wnl as best seen IMPRESSION: 1. Prominent common bile duct for the patient's given age. Recommend further evaluation with dedicate d MRCP. 2. Hepatomegaly. [facility], , 05/28/2024 8:53 PM
[2024-05-28] MEDS ORDERED: Potassium Replacement Protocol 1 EACH MISC MISCELLANE PRN (21:08)
[2024-05-28] MEDS: POTASSIUM CHLORIDE 20 MEQ in WATER FOR INJECTION 1 100ML.BAG IVPB SCH (21:31)
[2024-05-28] MEDS: NOREPINEPHRINE 32 MG in SODIUM CHLORIDE 0.9% 218 ML IV ONE (21:35)
[2024-05-28 21:59] LABS: Glucose,Whole Blood 244 mg/dL (70-110)
[2024-05-28] MEDS: POTASSIUM BICARBONATE/CIT AC 20 MEQ TABLET.EFF PO ONE ×2 (22:16→22:17)
[2024-05-28] MEDS ORDERED: DEXTROSE 50% SYRINGE 50 ML IVP PRN ×2 (23:23)
[2024-05-28] MEDS: PIPERACILLIN-TAZOBACTAM 3.375 GM in SODIUM CHLORIDE 0.9% 100 ML IVPB SCH (23:46)
[2024-05-28] MEDS: HEPARIN SODIUM,PORCINE 5,000 UNIT/ML 1 ML VIAL SQ SCH (23:46)
[2024-05-29 00:21] LABS: Appearance,Urine Cloudy (Clear); Bacteria,Urine Rare /hpf; Bilirubin,Urine Negative (Negative); Blood,Urine Negative (Negative); Color,Urine Yellow; Glucose,Urine (UA) Negative (Negative); Granular Casts,Urine 5 /lpf (0); Hyaline Casts,Urine 1 /lpf (0-2); Ketones,Urine Trace (Negative); Leukocyte Esterase,Urine Negative (Negative); Mucus,Urine Rare /hpf; Nitrite,Urine Negative (Negative); PH, Urine 5.5 (5.0-8.0); Protein,Urine 1+ (Negative); RBC,Urine 2 /hpf (0-5); Urobilinogen,Urine <2.0 mg/dL (<2.0); WBC,Urine 4 /hpf (0-5)
[2024-05-29 01:14] LABS: Anisocytosis Slight; Basophils % (A) 0 %; Eosinophils # (A) 0.2 k/uL (0-0.7); Eosinophils % (A) 2 %; HCT 32.2 % (34.0-46.0); HGB 9.5 gm/dL (11.4-16.0); Hypochromasia Marked; Lymphocytes # (A) 0.3 k/uL (1.0-4.8); Lymphocytes % (A) 3 %; MCH 21.4 pg (25.0-35.0); MCHC 29.4 g/dL (31.0-37.0); MCV 72.9 fL (80.0-100.0); Microcytosis Moderate; Monocytes # (A) 0.2 k/uL (0-1.0); Monocytes % (A) 2 %; Neutrophils # (A) 8.5 k/uL (1.3-7.7); Neutrophils % (A) 92 %; Platelet Count 271 k/uL (150-450); RBC 4.42 m/uL (3.80-5.40); RDW 16.1 % (11.5-15.5); WBC 9.3 k/uL (3.8-10.6)
[2024-05-29 01:27] LABS: African American GFR (CKD) >90 (>60 ml/min/1.73 sqM); Anion Gap 8 mmol/L; Blood Urea Nitrogen 17 mg/dL (7-17); Calcium 7.6 mg/dL (8.4-10.2); Carbon Dioxide 23 mmol/L (22-30); Chloride 104 mmol/L (98-107); Glucose 259 mg/dL (74-99); Magnesium 1.7 mg/dL (1.6-2.3); Non-African American GFR(CKD) >90 (>60 ml/min/1.73 sqM); Potassium 4.7 mmol/L (3.5-5.1); Sodium 135 mmol/L (137-145)
[2024-05-29] MEDS ORDERED: Magnesium Replacement Protocol 1 EACH MISC MISCELLANE PRN (02:31)
--- NOTE | 2024-05-29 02:32 | P.CNPUL ---
History of Present Illness Consult date: 05/29/24 Requesting physician: Samuel Santana Reason for consult: other (ICU management) Chief complaint: Increased lethargy History of present illness: Patient is a 58-year-old white female with past medical history significant for hernia repair at outside facility. Developed subsequent abdominal wall seroma, which was thought to be infected. Underwent I&D by Dr. Jasso 02/05/2024. She ended up with a wound VAC. Had recurrent fluid collection, and had a another I&D with wound debridement on 05/05/24. She has been following up at the wound care clinic. Also, has home health care that visits her multiple times per week. She also has history of asthma, diabetes mellitus, hypothyroidism, PE (not currently on anticoagulation), cerebral palsy, obesity. PCP is Dr. Melgar. Over the last couple days, patient has been reportedly more lethargic at home. Patient states that she ran out of wound care dressings and supplies at home. She removed her wound VAC. Has had a lot of drainage from her abdominal wall wound. She called EMS. While being evaluated the emergency department, she was found to be hypotensive she was fluid resuscitated with a total of 3 L crystalloid fluid bolus. Normal saline continues at 130 mL/h. Despite this, remained hypotensive, and was started on low-dose norepinephrine which is currently infusing at 0.05 mcg/kg/min. She is currently in the intensive care unit, room 266. She is lethargic, answers most of my questions appropriately. Technically oriented x 3. She denies any current complaints. Her abdominal wall wound is surrounded by macerated tissue. The wound bed itself is mostly granulation tissue. There is a cloudy pink to brown colored fluid that is foul- smelling. Appropriate cultures were taken. She is covered on broad-spectrum antibiotics in the form of Zosyn and vancomycin. Current blood pressure is reading 92/62 mmHg. Heart rate appears normal sinus on the bedside monitor with a rate of 60 bpm. She is resting comfortably on 3 L/min nasal cannula. SpO2 98%. She is currently afebrile, however, did spike of temperature of 101 F in the emergency department. Chest x-ray done arrival in the emergency department shows cardiomegaly with a left lower lobe opacity. 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 This could be atelectasis versus infectious process. Patient denies any shortness of breath, cough with sputum production, chest pain, hemoptysis. Denies sick contacts. Tested negative for COVID on arrival. CBC: WBC count 7.5, hemoglobin 9.6, hematocrit 30.6, platelets 244. She has chronic microcytic hypochromic anemia. CMP: Sodium 134, potassium 2.8, chloride 95, serum bicarb 31, BUN 22, creatinine 0.61, blood glucose 250. LFTs mildly elevated. Lactic 1.5. Urinalysis not particular remarkable for infection. Rare bacteria. She denies any urinary complaints. Prognosis is guarded. Review of Systems Constitutional: Reports fatigue, Reports fever, Reports weakness, Denies chills, Denies night sweats, Denies poor appetite, Denies weight gain, Denies weight loss Ears, nose, mouth and throat: Denies headache, Denies nasal congestion, Denies nasal discharge, Denies post-nasal drip, Denies sinus pressure, Denies sore throat Cardiovascular: Denies chest pain, Denies leg edema, Denies orthopnea, Denies palpitations, Denies paroxysmal nocturnal dyspnea, Denies syncope Respiratory: Denies cough with sputum, Denies dyspnea, Denies home oxygen, Denies wheezing Gastrointestinal: Denies abdominal pain, Denies change in bowel habits, Denies c onstipation, Denies diarrhea, Denies nausea, Denies vomiting Genitourinary: Reports urinary frequency, Denies dysuria, Denies flank pain, Denies hematuria Musculoskeletal: Reports muscle weakness, Denies arm numbness/tingling, Denies leg numbness/tingling, Denies limitation of motion Integumentary: Reports rash Neurological: Denies confusion, Denies head injury, Denies headaches, Denies memory loss, Denies seizures, Denies syncope Psychiatric: Reports depression, Denies anxiety, Denies suicidal ideation Past Medical History Past Medical History: Asthma, Diabetes Mellitus, Osteoarthritis (OA), Pulmonary Embolus (PE), Thyroid Disorder Additional Past Medical History / Comment(s): currently has wound vac to abdomen post abd surgery . hx of polyps History of Any Multi-Drug Resistant Organisms: None Reported Past Surgical History: Hernia Repair Additional Past Surgical History / Comment(s): ovarian cyst removal, colonoscopy, 01/2024 draining of abdominal fluid several times per pt with placement of wound vac. pt is poor historian Past Anesthesia/Blood Transfusion Reactions: No Reported Reaction, Motion Sickness Past Psychological History: Depression Smoking Status: Never smoker Past Alcohol Use History: Occasional Past Drug Use History: None Reported - Past Family History Sister(s) Family Medical History: Cancer Additional Family Medical History / Comment(s): breast cancer Medications and Allergies Home Medications Medication Instructions Recorded Confirmed Type Glimepiride [Amaryl] 4 mg PO DAILY 12/20/23 05/28/24 History Levothyroxine Sodium [Synthroid] 175 mcg PO DAILY 12/20/23 05/28/24 History Sertraline [Zoloft] 100 mg PO DAILY 12/20/23 05/28/24 History Acetaminophen Tab [Tylenol] 1,000 mg PO Q6HR PRN #30 tablet 05/07/24 05/28/24 Rx Ferrous Sulfate [Iron (65 MG 325 mg PO DAILY 05/28/24 05/28/24 History Elemental)] Furosemide [Lasix] 20 mg PO DAILY 05/28/24 05/28/24 History Tolterodine ER [Detrol LA] 4 mg PO DIRECTED 05/28/24 05/28/24 History metFORMIN HCL 1,000 mg PO DAILY 05/28/24 05/28/24 History Allergies Allergy/AdvReac Type Severity Reaction Status Date / Time No Known Allergies Allergy Verified 05/28/24 16:10 Physical Exam Vitals: Vital Signs Temp Pulse Pulse Resp BP Pulse Ox 05/28/24 23:00 69 12 86/49 98 05/28/24 22:30 82 23 90/56 96 05/28/24 22:00 97.8 F 55 L 66 28 H 86/59 100 05/28/24 21:55 19 05/28/24 21:43 98.1 F 75 18 88/55 96 05/28/24 21:35 97.7 F 78 18 84/49 96 05/28/24 21:08 98.4 F 81 18 88/53 95 05/28/24 20:38 78 05/28/24 20:30 98.4 F 79 18 88/55 94 L 05/28/24 20:24 80 05/28/24 19:58 80 22 78/52 94 L 05/28/24 19:48 79 22 77/42 93 L 05/28/24 19:30 80 18 73/57 95 05/28/24 19:18 98.3 F 80 20 73/57 95 05/28/24 19:00 80 17 83/46 95 05/28/24 18:30 82 19 87/46 96 05/28/24 18:00 89 21 88/46 95 05/28/24 17:30 98.6 F 88 20 105/51 95 05/28/24 17:00 94 20 121/54 99 05/28/24 16:56 109 H 20 110/64 100 05/28/24 16:06 101.0 F H 106 H 20 103/53 89 L Intake and Output 05/28/24 05/28/24 05/29/24 14:59 22:59 06:59 Intake Total 231.394 132.338 Output Total 450 75 Balance -218.606 57.338 Intake: IV 130 130 Sodium Chloride 0.9% 1, 130 130 000 ml @ 130 mls/hr IV . Q7H42M STA Rx#:[id number] Intake, IV Titration 101.394 2.338 Amount Norepinephrine 32 mg In 1.394 2.338 Sodium Chloride 0.9% 218 ml @ 0.03 MCG/KG/MIN 1. 442 mls/hr IV .Q24H ONE Rx#:[id number] Potassium Chloride 20 meq 100 In Water For Injection 1 100ml.bag @ 50 mls/hr IVPB Q2H COUNTS INCLUDE 234 BEDS AT THE [facility] Rx#: [id number] Output: Urine 450 75 Uretheral (Howard) 400 Other: Voiding Method Indwelling Catheter Weight 102.512 kg GENERAL EXAM: Lethargic, 58-year-old obese female, diaphoretic, has periods of sustained awakening, responds appropriately to questioning, but falls asleep when left alone. HEAD: Normocephalic and atraumatic EYES: Normal reaction of pupils, equal size. NOSE: Clear with pink turbinates. THROAT: No erythema or exudates. NECK: No masses, no JVD. Right IJ triple-lumen catheter. CHEST: No chest wall deformity. LUNGS: Equal air entry with no crackles, wheeze, rhonchi or dullness. On 3 L/min nasal cannula. SpO2 97%. No conversational dyspnea or accessory muscle use.. CVS: S1 and S2 normal with no audible murmur, regular rhythm. No extra heart sounds ABDOMEN: Obese abdomen. Large midline abdominal wound, mostly with granulation tissue. With some area of tunneling. Dimensions 10 x by 8 cm wide. Approximately 6 cm deep. [place] to brown milky drainage. Wound is surrounded by macerated tissue. No guarding or grimacing. Bowel sounds are active. No hepa tosplenomegaly. No masses. SPINE: No scoliosis or deformity SKIN: No rashes CENTRAL NERVOUS SYSTEM: No focal deficits, tone is normal in all 4 extremities. EXTREMITIES: There is mild nonpitting bilateral lower extremity edema. No clubbing, or cyanosis. Peripheral pulses are intact. Results - Laboratory Findings CBC and BMP: 05/28/24 16:41 05/28/24 16:41 PT/INR, D-dimer PT 11.4 sec (10.0-12.5) 05/28/24 16:41 INR 1.1 (<1.2) 05/28/24 16:41 Abnormal lab findings: Abnormal Labs 05/28/24 05/28/24 05/28/24 16:41 16:41 16:41 Hgb 9.6 L Hct 30.6 L MCV 69.7 L MCH 21.8 L RDW 15.9 H Lymphocytes # 0.2 L VBG pH 7.42 H VBG HCO3 32 H Sodium 134 L Potassium 2.8 L Chloride 95 L Carbon Dioxide 31 H BUN 22 H Glucose 250 H POC Glucose (mg/dL) AST 52 H ALT 67 H Alkaline Phosphatase 245 H Total Protein 5.8 L Albumin 3.1 L 05/28/24 21:57 Hgb Hct MCV MCH RDW Lymphocytes # VBG pH VBG HCO3 Sodium Potassium Chloride Carbon Dioxide BUN Glucose POC Glucose (mg/dL) 244 H AST ALT Alkaline Phosphatase Total Protein Albumin - Diagnostic Findings Chest x-ray: image reviewed Assessment and Plan Assessment: Hypotension, refractory to fluid resuscitation, currently on vasopressors in the form of norepinephrine which is infusing at 0.05 mcg/kg/min. Consider sepsis and septic shock Acute febrile illness Abdominal wall wound History of ventral abdominal hernia repair at outside facility, subsequently developed seroma, Underwent I&D by Dr. Jasso 02/05/2024. She ended up with a wound VAC. Had recurrent fluid collection, and had a another I&D with wound debridement on 05/05/24. She has been following up at the wound care clinic. Acute hypoxemic respiratory failure, currently on 3 L/min nasal cannula, chest x-ray shows stable cardiomegaly with possible mild pulmonary vascular congestion. Nt-BNP low. There is a left lower lobe opacity, which is chronic. Patient has an elevated left hemidiaphragm. Suspect atelectasis. Microcytic hypochromic anemia Mildly elevated LFTs, unknown significance Hypokalemia, being replaced per protocol Diabetes mellitus type 2, with hyperglycemia History of hypothyroidism History of pulmonary embolism, not currently on anticoagulation. Previous maintained on Eliquis for 3 to 6 months. A follow-up chest CTA negative for PE. Eliquis stopped. History of mild intermittent asthma, stable Obesity, with a BMI of 38.8 kg/m History of depression Plan: Patient admitted to intensive care unit. Hypotension is refractory to fluid resuscitation with 3 L normal saline fluid bolus. Has now required low-dose vasopressors in the form of norepinephrine. Central line access established in the emergency department General Surgery asked to see this patient in regards to abdominal wall wound Wound care also consulted Continue broad-spectrum antibiotic coverage which is currently in the form of Zosyn and Vancomycin. Infectious disease specialist consulted for antibiotic management Appropriate cultures are pending Procalcitonin pending. Replace electrolytes per protocol Sliding scale insulin coverage GI prophylaxis: Protonix DVT prophylaxis: Heparin subcu Will continue to follow patient while in intensive care unit. I have personally seen and examined the patient, performed the documentation and the assessment and plan as written. Number of minutes spent on the visit:20 Time with Patient: Greater than 30
--- NOTE | 2024-05-29 02:51 | P.HPIM ---
History of Present Illness H&P Date: 05/29/24 Chief Complaint: fever, confusion , abd wound Patient is a 58-year-old female with a type 2 diabetes, asthma, presented to the ED with fever and abdominal pain. Patient states she has a history of recurrent abdominal problems. She had previous hernia repair from outside facility which was complicated with an infected abdominal wall seroma. She underwent incision, drainage, and debridement by Dr. Jasso on 02/05/2024. Subsequently, she had recurrent fluid collection which was followed by another incision, drainage, and debridement on 05/05/2024. Patient regularly seen wound care for drainage and dressing changes. Patient had a wound VAC, but she removed the yesterday. She said she removed the wound VAC because she was out of supplies to change it. Reported a lot of drainage from her wound which prompted her to the call EMS. While in the ED patient was hypotensive. Was given 3L NS with no improvement. Central line was placed and she was transferred to ICU for further assessment. Patient denies any chest pain, shortness of breath, nausea, vomiting, urinary symptoms. Review of systems: Pertinent positives and negatives as discussed in HPI, a complete review of systems was performed and all other systems are negative. Physical examination: Vitals: T 101F, MD 109, RR 20, BP 110/64, O2 sat 100% on 3 L nasal cannula General: Slightly lethargic but arousable to tactile and vocal stimuli, no distress, appears at stated age, obese Derm: no unusual rashes/lesions, warm Head: atraumatic, normocephalic, symmetric Eyes: EOMI, anicteric sclera, pupils equal round reactive to light ENT: Nose and ears atraumatic Mouth: no lip lesion, mucus membranes moist Cardiovascular: S1S2 reg, no murmur, positive dorsalis pedis pulse bilateral, no edema Lungs: CTA bilateral, no rhonchi, no rales, no accessory muscle use Abdominal: soft, tender to palpation, ~10 cm laceration lower left abdomen with surrounding erythema extending to the upper abdomen with foul smelling mucopurulent drainage Ext: muscle strength 5 out of 5 in all 4 extremities grossly, no gross muscle atrophy Neuro: CN II-XI grossly intact, no gross focal neuro deficits Psych: lethargic arousable, oriented to person, place, and time Assessment/Plan: Patient is a 58-year-old female with a type 2 diabetes, asthma, presented to the ED with fever and abdominal pain. ED documentation reviewed and case discussed with ED provider. Discussed with patient .The patient is admitted with an anticipated greater than 2 midnight stay for evaluation of septic shock. #. Hypotension Septic shock versus anaphylaxis Patient hypotensive in ED, was given 3L NS bolus WBC 7.5 wnl, spiking fevers UA showed rare urine bacteria, 1+ protein Was given Benadryl 50 mg IVP once, Pepcid 20 mg IV once, Solu-Medrol 125 mg IV once, DuoNeb 6 mL inhalation once, Decadron 10 mg IVP by ED Continue with Zosyn 3.37 gm IVPB q8hr Continue with vancomycin dosed by pharmacy IVPB every 12 hours Normal saline at 100 cc/hr Aerobic/anaerobic wound culture ordered Blood and urine cultures ordered Cardiac monitoring Howard catheter in place Monitor for fever Follow-up CBC Wound care consulted Surgery consult ID consulted Patient admitted to ICU for persistent hypotension Currently on Levophed 32 Mg IV 0.03 mcg/kg/min by ICU #. Small left-sided pulmonary effusion #. Suspected pneumonia CXR independently interpreted displayed minimal infiltrate at left costophrenic angle Legionella antigen ordered Procalcitonin ordered Sputum culture ordered Continue with IV antibiotics as stated above Pulmonology consulted #. Metabolic alkalosis CO2 31 VBG pH 7.42 (H), pCO2 49, HCO3 32 (H) Given normal saline Monitor with follow-up CMP and VBG #. Type 2 diabetes #. Hyperglycemia Glucose 250 Hold oral diabetic medication Insulin SQ sliding scale Accu-Chek Hypoglycemic protocol #. Anxiety 1 mg IV every 6 hours are as needed #. Hypokalemia K 2.8 replaced in the ED Monitor with follow-up BMP #. Microcytic anemia Hgb 9.6 (at baseline), MCV 69.7 Denies active bleeding Has history of iron deficiency anemia F: NS at 100 cc/hr E: Replete electrolytes as needed N: Regular diet A: Ambulatory DVT prophylaxis: Heparin SQ 5000 unit q8hrs, SCD CODE STATUS: Full code Past Medical History Past Medical History: Asthma, Diabetes Mellitus, Osteoarthritis (OA), Pulmonary Embolus (PE), Thyroid Disorder Additional Past Medical History / Comment(s): currently has wound vac to abdomen post abd surgery . hx of polyps History of Any Multi-Drug Resistant Organisms: None Reported Past Surgical History: Hernia Repair Additional Past Surgical History / Comment(s): ovarian cyst removal, colonoscopy, 01/2024 draining of abdominal fluid several times per pt with placement of wound vac. pt is poor historian Past Anesthesia/Blood Transfusion Reactions: No Reported Reaction, Motion Sickness Past Psychological History: Depression Smoking Status: Never smoker Past Alcohol Use History: Occasional Past Drug Use History: None Reported - Past Family History Sister(s) Family Medical History: Cancer Additional Family Medical History / Comment(s): breast cancer Medications and Allergies Home Medications Medication Instructions Recorded Confirmed Type Glimepiride [Amaryl] 4 mg PO DAILY 12/20/23 05/28/24 History Levothyroxine Sodium [Synthroid] 175 mcg PO DAILY 12/20/23 05/28/24 History Sertraline [Zoloft] 100 mg PO DAILY 12/20/23 05/28/24 History Acetaminophen Tab [Tylenol] 1,000 mg PO Q6HR PRN #30 tablet 05/07/24 05/28/24 Rx Ferrous Sulfate [Iron (65 MG 325 mg PO DAILY 05/28/24 05/28/24 History Elemental)] Furosemide [Lasix] 20 mg PO DAILY 05/28/24 05/28/24 History Tolterodine ER [Detrol LA] 4 mg PO DIRECTED 05/28/24 05/28/24 History metFORMIN HCL 1,000 mg PO DAILY 05/28/24 05/28/24 History Allergies Allergy/AdvReac Type Severity Reaction Status Date / Time No Known Allergies Allergy Verified 05/28/24 16:10 Physical Exam Vitals: Vital Signs Temp Pulse Pulse Resp BP Pulse Ox 05/29/24 01:30 51 L 9 L 92/56 97 05/29/24 01:00 53 L 15 100/61 98 05/29/24 00:30 63 18 98/66 98 05/29/24 00:00 98.5 F 65 55 L 16 84/48 97 05/28/24 23:30 64 18 84/54 98 05/28/24 23:24 70 18 84/54 98 05/28/24 23:00 69 12 86/49 98 05/28/24 22:30 82 23 90/56 96 05/28/24 22:00 97.8 F 55 L 66 28 H 86/59 100 05/28/24 21:55 19 05/28/24 21:43 98.1 F 75 18 88/55 96 05/28/24 21:35 97.7 F 78 18 84/49 96 05/28/24 21:08 98.4 F 81 18 88/53 95 05/28/24 20:38 78 05/28/24 20:30 98.4 F 79 18 88/55 94 L 05/28/24 20:24 80 05/28/24 19:58 80 22 78/52 94 L 05/28/24 19:48 79 22 77/42 93 L 05/28/24 19:30 80 18 73/57 95 05/28/24 19:18 98.3 F 80 20 73/57 95 05/28/24 19:00 80 17 83/46 95 05/28/24 18:30 82 19 87/46 96 05/28/24 18:00 89 21 88/46 95 05/28/24 17:30 98.6 F 88 20 105/51 95 05/28/24 17:00 94 20 121/54 99 05/28/24 16:56 109 H 20 110/64 100 05/28/24 16:06 101.0 F H 106 H 20 103/53 89 L Intake and Output 05/28/24 05/28/24 05/29/24 14:59 22:59 06:59 Intake Total 231.394 132.338 Output Total 450 75 Balance -218.606 57.338 Intake: IV 130 130 Sodium Chloride 0.9% 1, 130 130 000 ml @ 130 mls/hr IV . Q7H42M STA Rx#:[id number] Intake, IV Titration 101.394 2.338 Amount Norepinephrine 32 mg In 1.394 2.338 Sodium Chloride 0.9% 218 ml @ 0.03 MCG/KG/MIN 1. 442 mls/hr IV .Q24H ONE Rx#:[id number] Potassium Chloride 20 meq 100 In Water For Injection 1 100ml.bag @ 50 mls/hr IVPB Q2H [facility] Rx#: [id number] Output: Urine 450 75 Uretheral (Howard) 400 Other: Voiding Method Indwelling Catheter Indwelling Catheter Weight 102.512 kg Results CBC & Chem 7: 05/28/24 16:41 05/28/24 16:41 Labs: Abnormal Lab Results - Last 24 Hours (Table) 05/28/24 05/28/24 05/28/24 Range/Units 00:50 00:50 16:41 Hgb 9.5 L 9.6 L (11.4-16.0) gm/dL Hct 32.2 L 30.6 L (34.0-46.0) % MCV 72.9 L 69.7 L (80.0-100.0) fL MCH 21.4 L 21.8 L (25.0-35.0) pg MCHC 29.4 L (31.0-37.0) g/dL RDW 16.1 H 15.9 H (11.5-15.5) % Neutrophils # 8.5 H (1.3-7.7) k/uL Lymphocytes # 0.3 L 0.2 L (1.0-4.8) k/uL VBG pH (7.31-7.41) VBG HCO3 (24-28) mmol/L Sodium 135 L (137-145) mmol/L Potassium (3.5-5.1) mmol/L Chloride (98-107) mmol/L Carbon Dioxide (22-30) mmol/L BUN (7-17) mg/dL Glucose 259 H (74-99) mg/dL POC Glucose (mg/dL) (70-110) mg/dL Calcium 7.6 L (8.4-10.2) mg/dL AST (14-36) U/L ALT (4-34) U/L Alkaline Phosphatase (38-126) U/L Total Protein (6.3-8.2) g/dL Albumin (3.5-5.0) g/dL Urine Appearance (Clear) Urine Protein (Negative) Urine Ketones (Negative) Urine Bacteria (None) /hpf Urine Mucus (None) /hpf 05/28/24 05/28/24 05/28/24 Range/Units 16:41 16:41 21:57 Hgb (11.4-16.0) gm/dL Hct (34.0-46.0) % MCV (80.0-100.0) fL MCH (25.0-35.0) pg MCHC (31.0-37.0) g/dL RDW (11.5-15.5) % Neutrophils # (1.3-7.7) k/uL Lymphocytes # (1.0-4.8) k/uL VBG pH 7.42 H (7.31-7.41) VBG HCO3 32 H (24-28) mmol/L Sodium 134 L (137-145) mmol/L Potassium 2.8 L (3.5-5.1) mmol/L Chloride 95 L (98-107) mmol/L Carbon Dioxide 31 H (22-30) mmol/L BUN 22 H (7-17) mg/dL Glucose 250 H (74-99) mg/dL POC Glucose (mg/dL) 244 H (70-110) mg/dL Calcium (8.4-10.2) mg/dL AST 52 H (14-36) U/L ALT 67 H (4-34) U/L Alkaline Phosphatase 245 H (38-126) U/L Total Protein 5.8 L (6.3-8.2) g/dL Albumin 3.1 L (3.5-5.0) g/dL Urine Appearance (Clear) Urine Protein (Negative) Urine Ketones (Negative) Urine Bacteria (None) /hpf Urine Mucus (None) /hpf 05/28/24 Range/Units 22:04 Hgb (11.4-16.0) gm/dL Hct (34.0-46.0) % MCV (80.0-100.0) fL MCH (25.0-35.0) pg MCHC (31.0-37.0) g/dL RDW (11.5-15.5) % Neutrophils # (1.3-7.7) k/uL Lymphocytes # (1.0-4.8) k/uL VBG pH (7.31-7.41) VBG HCO3 (24-28) mmol/L Sodium (137-145) mmol/L Potassium (3.5-5.1) mmol/L Chloride (98-107) mmol/L Carbon Dioxide (22-30) mmol/L BUN (7-17) mg/dL Glucose (74-99) mg/dL POC Glucose (mg/dL) (70-110) mg/dL Calcium (8.4-10.2) mg/dL AST (14-36) U/L ALT (4-34) U/L Alkaline Phosphatase (38-126) U/L Total Protein (6.3-8.2) g/dL Albumin (3.5-5.0) g/dL Urine Appearance Cloudy H (Clear) Urine Protein 1+ H (Negative) Urine Ketones Trace H (Negative) Urine Bacteria Rare H (None) /hpf Urine Mucus Rare H (None) /hpf Thrombosis Risk Factor Assmnt - Choose All That Apply Each Factor Represents 1 point: Age 41-60 years, Medical pt on bed rest, Obesity (BMI >25), Sepsis (< 1month) Each Risk Factor Represents 3 Points: History of DVT/PE Thrombosis Risk Factor Assessment Total Risk Factor Score: 7 Thrombosis Risk Factor Assessment Level: High Risk Assessment and Plan Assessment: I have seen and evaluated the patient today. I Discussed the case with the resident and agree with the resident's findings I edited the assessment and plan as necessary as documented in the resident's note.
[2024-05-29 06:17] LABS: Anisocytosis Slight; Basophils % (A) 0 %; Eosinophils # (A) 0.1 k/uL (0-0.7); Eosinophils % (A) 1 %; HGB 9.7 gm/dL (11.4-16.0); Hypochromasia Marked; Lymphocytes # (A) 0.3 k/uL (1.0-4.8); Lymphocytes % (A) 3 %; MCH 21.9 pg (25.0-35.0); MCHC 30.3 g/dL (31.0-37.0); MCV 72.4 fL (80.0-100.0); Mean Platelet Volume 7.1; Microcytosis Moderate; Monocytes # (A) 0.3 k/uL (0-1.0); Monocytes % (A) 3 %; Neutrophils # (A) 8.7 k/uL (1.3-7.7); Neutrophils % (A) 93 %; Platelet Count 250 k/uL (150-450); RBC 4.42 m/uL (3.80-5.40); RDW 16.3 % (11.5-15.5); WBC 9.3 k/uL (3.8-10.6)
[2024-05-29 06:31] LABS: African American GFR (CKD) >90 (>60 ml/min/1.73 sqM); Anion Gap 9 mmol/L; Blood Urea Nitrogen 17 mg/dL (7-17); Calcium 7.8 mg/dL (8.4-10.2); Carbon Dioxide 24 mmol/L (22-30); Chloride 103 mmol/L (98-107); Glucose 265 mg/dL (74-99); Non-African American GFR(CKD) >90 (>60 ml/min/1.73 sqM); Potassium 4.2 mmol/L (3.5-5.1); Sodium 136 mmol/L (137-145)
[2024-05-29 06:35] LABS: Glucose,Whole Blood 278 mg/dL (70-110)
[2024-05-29] MEDS: INSULIN ASPART (NovoLOG) 100 UNIT/ML VIAL SQ SCH (06:37)
[2024-05-29] MEDS: VANCOMYCIN 1,750 MG in SODIUM CHLORIDE 0.9% 500 ML 500 ML IVPB SCH (08:25)
[2024-05-29] MEDS: PANTOPRAZOLE 40 MG/10 ML VIAL IV SCH (08:25)
--- NOTE | 2024-05-29 08:33 | XR ---
EXAMINATION TYPE: XR chest 1V portable DATE OF EXAM: 05/29/2024 COMPARISON: 05/28/2024 INDICATION: Pneumonia TECHNIQUE: Single frontal view of the chest is obtained. FINDINGS: The heart size is enlarged. The pulmonary vasculature is normal. Some mild atelectasis at the left base is not excluded Right central venous catheter with the tip in the right atrium unchanged in position IMPRESSION: 1. AV some atelectasis at the left lung base. 2. Cardiomegaly. 3. Right central venous catheter with the tip in the right atrium [facility] Janis Woodward, , 05/29/2024 8:30 AM
--- NOTE | 2024-05-29 10:45 | P.CONS ---
History of Present Illness - Reason for Consult Consult date: 05/29/24 wound care - History of Present Illness This is a 58-year-old patient known to the wound care center being seen in the ICU for a nonhealing ulceration to abdominal wall. Previously patient underwent surgery at a tertiary hospital resulting in a open ulceration. Patient then returned with a infected seroma where she underwent a second surgery and being sent to the wound care center. At that time the ulceration was healing appropriately until approximately 1 month ago where she continued to have significant amount of drainage filling her canister every 24 hours. Patient was sent to the surgeon who did an I&D for seroma and return to the wound care center. At that time patient has been following up weekly with minimal changes to the ulceration the serous fluid has significantly decreased compared to 1 month ago.Original cause of wound was Surgical Injury. The date acquired was: 10/12/2023. The wound has been in treatment 14 weeks. The wound is currently classified as a Full Thickness With Exposed Support Structures wound with etiology of Open Surgical Wound and is located on the Abdomen - midline. The wound measures 5.7cm length x 5.3cm width x 5.5cm depth; 23.727cm^2 area and 130.498cm^3 volume. There is Fat Layer (Subcutaneous Tissue) and fascia exposed. There is no tunneling or undermining noted. There is a large amount of serosanguineous drainage noted. The wound margin is distinct with the outline attached to the wound base. There is large (67-100%) red, pink granulation within the wound bed. There is a small (1-33%) amount of necrotic tissue within the wound bed. The periwound skin appearance exhibited: Excoriation, Rash, Scarring. The periwound skin appearance did not exhibit: Callus, Crepitus, Induration, Dry/Scaly, Maceration, Atrophie [place], Cyanosis, Ecchymosis, Hemosiderin Staining, Mottled, Pallor, Rubor, Erythema. Periwound temperature was noted as No Abnormality. Review Of Systems: Constitutional: No fever, no chills, no night sweats. No weight change. No weakness, fatigue or lethargy. No daytime sleepiness. Integumentary:reports wounds, no lesions. No rash or pruritus. No unusual bruising. No change in hair or nails. Physical exam: General Appearance: Alert, cooperative, no distress, appears stated age. Skin: See HPI all other Skin color, texture, tugor normal, no rashes or lesions. Neurologic: Alert oriented x3 Assessment: 1. 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 Disruption of external operation wound Plan: 1. At this time utilize wet to dry dressing. Zinc barrier cream to the periwou nd. We will hold off on the negative pressure wound VAC until evaluated by surgery. Patient will return to the wound care center upon discharge. Thank you for the consultation any questions please contact the wound care center DNP note has been reviewed and discussed with Dr. Cheema and the impression and plan of care has been directed as dictated. Past Medical History Past Medical History: Asthma, Diabetes Mellitus, Osteoarthritis (OA), Pulmonary Embolus (PE), Thyroid Disorder Additional Past Medical History / Comment(s): currently has wound vac to abdomen post abd surgery . hx of polyps History of Any Multi-Drug Resistant Organisms: None Reported Past Surgical History: Hernia Repair Additional Past Surgical History / Comment(s): ovarian cyst removal, colonoscopy, 01/2024 draining of abdominal fluid several times per pt with p lacement of wound vac. pt is poor historian Past Anesthesia/Blood Transfusion Reactions: No Reported Reaction, Motion Sickness Past Psychological History: Depression Smoking Status: Never smoker Past Alcohol Use History: Occasional Past Drug Use History: None Reported - Past Family History Sister(s) Family Medical History: Cancer Additional Family Medical History / Comment(s): breast cancer Medications and Allergies Home Medications Medication Instructions Recorded Confirmed Type Glimepiride [Amaryl] 4 mg PO DAILY 12/20/23 05/28/24 History Levothyroxine Sodium [Synthroid] 175 mcg PO DAILY 12/20/23 05/28/24 History Sertraline [Zoloft] 100 mg PO DAILY 12/20/23 05/28/24 History Acetaminophen Tab [Tylenol] 1,000 mg PO Q6HR PRN #30 tablet 05/07/24 05/28/24 Rx Ferrous Sulfate [Iron (65 MG 325 mg PO DAILY 05/28/24 05/28/24 History Elemental)] Furosemide [Lasix] 20 mg PO DAILY 05/28/24 05/28/24 History Tolterodine ER [Detrol LA] 4 mg PO DIRECTED 05/28/24 05/28/24 History metFORMIN HCL 1,000 mg PO DAILY 05/28/24 05/28/24 History Allergies Allergy/AdvReac Type Severity Reaction Status Date / Time No Known Allergies Allergy Verified 05/28/24 16:10 Physical Exam Vitals: Vital Signs Temp Pulse Pulse Resp BP Pulse Ox 05/29/24 10:00 61 22 94/56 98 05/29/24 09:30 70 22 97/61 97 05/29/24 09:00 64 18 106/59 94 L 05/29/24 08:36 70 05/29/24 08:30 75 20 110/74 98 05/29/24 08:26 74 05/29/24 08:23 96 05/29/24 08:00 97.6 F 79 14 115/73 97 05/29/24 07:30 52 L 17 96/63 97 05/29/24 07:00 54 L 19 93/55 98 05/29/24 06:30 59 L 14 111/59 96 05/29/24 06:00 67 12 115/73 95 05/29/24 05:30 68 23 125/71 97 05/29/24 05:00 36 L 26 H 91/61 100 05/29/24 04:30 50 L 16 93/56 99 05/29/24 04:00 97.6 F 49 L 52 L 15 82/67 99 05/29/24 03:30 59 L 22 97/56 99 05/29/24 03:00 53 L 15 98/56 98 05/29/24 02:30 48 L 14 93/58 98 05/29/24 02:00 51 L 14 97/62 99 05/29/24 01:30 51 L 9 L 92/56 97 05/29/24 01:00 53 L 15 100/61 98 05/29/24 00:30 63 18 98/66 98 05/29/24 00:00 98.5 F 65 55 L 16 84/48 97 05/28/24 23:30 64 18 84/54 98 05/28/24 23:24 70 18 84/54 98 05/28/24 23:00 69 12 86/49 98 05/28/24 22:30 82 23 90/56 96 05/28/24 22:00 97.8 F 55 L 66 28 H 86/59 100 05/28/24 21:55 19 05/28/24 21:43 98.1 F 75 18 88/55 96 05/28/24 21:35 97.7 F 78 18 84/49 96 05/28/24 21:08 98.4 F 81 18 88/53 95 05/28/24 20:38 78 05/28/24 20:30 98.4 F 79 18 88/55 94 L 05/28/24 20:24 80 05/28/24 19:58 80 22 78/52 94 L 05/28/24 19:48 79 22 77/42 93 L 05/28/24 19:30 80 18 73/57 95 05/28/24 19:18 98.3 F 80 20 73/57 95 05/28/24 19:00 80 17 83/46 95 05/28/24 18:30 82 19 87/46 96 05/28/24 18:00 89 21 88/46 95 05/28/24 17:30 98.6 F 88 20 105/51 95 05/28/24 17:00 94 20 121/54 99 05/28/24 16:56 109 H 20 110/64 100 05/28/24 16:06 101.0 F H 106 H 20 103/53 89 L Intake and Output 05/28/24 05/29/24 05/29/24 22:59 06:59 14:59 Intake Total 162.678 7529.774 390 Output Total 450 535 160 Balance -218.606 722.774 230 Intake: IV 130 1040 390 Sodium Chloride 0.9% 1, 130 1040 390 000 ml @ 130 mls/hr IV . Q7H42M STA Rx#:[id number] Intake, IV Titration 101.394 217.774 Amount Norepinephrine 32 mg In 1.394 17.774 Sodium Chloride 0.9% 218 ml @ 0.03 MCG/KG/MIN 1. 442 mls/hr IV .Q24H ONE Rx#:[id number] Piperacillin-Tazobactam 3 100 .375 gm In Sodium Chloride 0.9% 100 ml @ 25 mls/hr IVPB Q8HR EREN Rx# :[id number] Potassium Chloride 20 meq 100 100 In Water For Injection 1 100ml.bag @ 50 mls/hr IVPB Q2H EREN Rx#: [id number] Output: Urine 450 535 160 Uretheral ([place]) 400 Other: Voiding Method Indwelling Catheter Indwelling Catheter Indwelling Catheter Weight 102.512 kg 106.9 kg Results CBC & Chem 7: 05/29/24 05:55 05/29/24 05:55 Labs: Abnormal Lab Results - Last 24 Hours (Table) 05/28/24 05/28/24 05/28/24 Range/Units 00:50 00:50 00:50 Hgb 9.5 L (11.4-16.0) gm/dL Hct 32.2 L (34.0-46.0) % MCV 72.9 L (80.0-100.0) fL MCH 21.4 L (25.0-35.0) pg MCHC 29.4 L (31.0-37.0) g/dL RDW 16.1 H (11.5-15.5) % Neutrophils # 8.5 H (1.3-7.7) k/uL Lymphocytes # 0.3 L (1.0-4.8) k/uL VBG pH (7.31-7.41) VBG HCO3 (24-28) mmol/L Sodium 135 L (137-145) mmol/L Potassium (3.5-5.1) mmol/L Chloride (98-107) mmol/L Carbon Dioxide (22-30) mmol/L BUN (7-17) mg/dL Glucose 259 H (74-99) mg/dL POC Glucose (mg/dL) (70-110) mg/dL Hemoglobin A1c (<=6.0) % Calcium 7.6 L (8.4-10.2) mg/dL AST (14-36) U/L ALT (4-34) U/L Alkaline Phosphatase (38-126) U/L Total Protein (6.3-8.2) g/dL Albumin (3.5-5.0) g/dL Procalcitonin 0.71 H (0.02-0.50) ng/mL Urine Appearance (Clear) Urine Protein (Negative) Urine Ketones (Negative) Urine Bacteria (None) /hpf Urine Mucus (None) /hpf 05/28/24 05/28/24 05/28/24 Range/Units 16:41 16:41 16:41 Hgb 9.6 L (11.4-16.0) gm/dL Hct 30.6 L (34.0-46.0) % MCV 69.7 L (80.0-100.0) fL MCH 21.8 L (25.0-35.0) pg MCHC (31.0-37.0) g/dL RDW 15.9 H (11.5-15.5) % Neutrophils # (1.3-7.7) k/uL Lymphocytes # 0.2 L (1.0-4.8) k/uL VBG pH 7.42 H (7.31-7.41) VBG HCO3 32 H (24-28) mmol/L Sodium 134 L (137-145) mmol/L Potassium 2.8 L (3.5-5.1) mmol/L Chloride 95 L (98-107) mmol/L Carbon Dioxide 31 H (22-30) mmol/L BUN 22 H (7-17) mg/dL Glucose 250 H (74-99) mg/dL POC Glucose (mg/dL) (70-110) mg/dL Hemoglobin A1c (<=6.0) % Calcium (8.4-10.2) mg/dL AST 52 H (14-36) U/L ALT 67 H (4-34) U/L Alkaline Phosphatase 245 H (38-126) U/L Total Protein 5.8 L (6.3-8.2) g/dL Albumin 3.1 L (3.5-5.0) g/dL Procalcitonin (0.02-0.50) ng/mL Urine Appearance (Clear) Urine Protein (Negative) Urine Ketones (Negative) Urine Bacteria (None) /hpf Urine Mucus (None) /hpf 05/28/24 05/28/24 05/29/24 Range/Units 21:57 22:04 05:55 Hgb (11.4-16.0) gm/dL Hct (34.0-46.0) % MCV (80.0-100.0) fL MCH (25.0-35.0) pg MCHC (31.0-37.0) g/dL RDW (11.5-15.5) % Neutrophils # (1.3-7.7) k/uL Lymphocytes # (1.0-4.8) k/uL VBG pH (7.31-7.41) VBG HCO3 (24-28) mmol/L Sodium 136 L (137-145) mmol/L Potassium (3.5-5.1) mmol/L Chloride (98-107) mmol/L Carbon Dioxide (22-30) mmol/L BUN (7-17) mg/dL Glucose 265 H (74-99) mg/dL POC Glucose (mg/dL) 244 H (70-110) mg/dL Hemoglobin A1c (<=6.0) % Calcium 7.8 L (8.4-10.2) mg/dL AST (14-36) U/L ALT (4-34) U/L Alkaline Phosphatase (38-126) U/L Total Protein (6.3-8.2) g/dL Albumin (3.5-5.0) g/dL Procalcitonin (0.02-0.50) ng/mL Urine Appearance Cloudy H (Clear) Urine Protein 1+ H (Negative) Urine Ketones Trace H (Negative) Urine Bacteria Rare H (None) /hpf Urine Mucus Rare H (None) /hpf 05/29/24 05/29/24 05/29/24 Range/Units 05:55 05:55 06:33 Hgb 9.7 L (11.4-16.0) gm/dL Hct 32.0 L (34.0-46.0) % MCV 72.4 L (80.0-100.0) fL MCH 21.9 L (25.0-35.0) pg MCHC 30.3 L (31.0-37.0) g/dL RDW 16.3 H (11.5-15.5) % Neutrophils # 8.7 H (1.3-7.7) k/uL Lymphocytes # 0.3 L (1.0-4.8) k/uL VBG pH (7.31-7.41) VBG HCO3 (24-28) mmol/L Sodium (137-145) mmol/L Potassium (3.5-5.1) mmol/L Chloride (98-107) mmol/L Carbon Dioxide (22-30) mmol/L BUN (7-17) mg/dL Glucose (74-99) mg/dL POC Glucose (mg/dL) 278 H (70-110) mg/dL Hemoglobin A1c 7.1 H (<=6.0) % Calcium (8.4-10.2) mg/dL AST (14-36) U/L ALT (4-34) U/L Alkaline Phosphatase (38-126) U/L Total Protein (6.3-8.2) g/dL Albumin (3.5-5.0) g/dL Procalcitonin (0.02-0.50) ng/mL Urine Appearance (Clear) Urine Protein (Negative) Urine Ketones (Negative) Urine Bacteria (None) /hpf Urine Mucus (None) /hpf Assessment and Plan (1) Abdominal wall seroma Current Visit: No Status: Acute Code(s): S30.1XXA - CONTUSION OF ABDOMINAL WALL, INITIAL ENCOUNTER SNOMED Code(s): 178473565 (2) 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
[2024-05-29 11:18] LABS: Glucose,Whole Blood 282 mg/dL (70-110)
[2024-05-29] MEDS: LEVOTHYROXINE 88 MCG TAB PO SCH (12:09)
--- NOTE | 2024-05-29 12:46 | P.GSCN ---
History of Present Illness Consult date: 05/29/24 History of present illness: CHIEF COMPLAINT: Incisional drainage and ran out of supplies for her wound VAC HISTORY OF PRESENT ILLNESS: This is a 58-year-old female who has a known history of a ventral hernia repair that was completed at an outside facility. Since then she had developed a seroma and in January 2028 she underwent debridement with Dr. Jasso. Patient required another debridement in April and had a wound VAC and has been following with wound care service outpatient. Discussed case with wound care service. Wound care nurse practitioner noted that patient had been having less drainage from the abdominal wound when last seen a wound care center. But apparently the drainage did again increase and patient ran out of supplies for the wound VAC. Wound VAC was removed by patient and they were applying wet-to-dry dressings. Patient came into the ER with fever and concerns for increased drainage from abdominal wound. Patient is in the ICU with evid ence of sepsis. She was hypotensive and febrile. She has been placed on antibiotics and also seen by wound care service. Wound VAC is currently off. Patient does have skin excoriation around the abdominal wound. PAST MEDICAL HISTORY: See list. PAST SURGICAL HISTORY: See list. MEDICATIONS: See list. ALLERGIES: See list. SOCIAL HISTORY: No illicit drug use. REVIEW OF SYSTEMS: CONSTITUTIONAL: Denies fever or chills. HEENT: Denies blurred vision, vision changes, or eye pain. Denies hemoptysis ENDOCRINE: Denies heat or cold intolerance. CARDIOVASCULAR: Denies chest pain or pressure. RESPIRATORY: No shortness of breath. GASTROINTESTINAL: Please refer to HPI otherwise unremarkable NEURO: Denies history of seizures. PSYCH: No depression or suicidal ideation HEMATOLOGIC: Denies bleeding disorders. LYMPHATIC: The patient denies any lumps and bumps around the neck. GENITOURINARY: Denies any blood in urine or increased urinary frequency. MUSCULOSKELETAL: Denies myalgias. Denies joint swelling. Denies decreased range of motion beyond patients baseline. SKIN: Denies pruitis. Denies rash. PHYSICAL EXAM: VITAL SIGNS: Reviewed GENERAL: Well-developed in no acute distress. HEENT: No sclera icterus. Extraocular movements grossly intact. Moist buccal mucosa. Head is atraumatic, normocephalic. Hears conversational speech. No nasal drainage. NECK: Supple without lymphadenopathy. CHEST: Non-labored respirations and equal bilateral excursions. CARDIOVASCULAR: Palpable 2+ radial pulses. ABDOMEN: Soft. Nondistended. Abdominal wound in the middle of the abdomen with healthy pink tissue. Drainage serosanguineous noted on the dressing. Patient with excoriation markings around the abdominal wound. And erythema noted upper abdomen MUSCULOSKELETAL: No clubbing or cyanosis. NEUROLOGIC: No focal or lateralizing signs. Cranial nerves II through XII grossly intact. PSYCH: Appropriate affect. Alert and oriented to person, place and time. SKIN: Well perfused. Good skin turgor. LABORATORY DATA: WBC 9.3 Hgb 9.7 platelets 250 Sodium 136 potassium 4.2 Albumin 3.1 hemoglobin A1c is 7.1 Total bili 0.5 AST 52 ALT 67 alk phos 245 IMAGING: Gallbladder ultrasound reports prominent common bile duct for patient's given age. Hepatomegaly ASSESSMENT: 1. Abdominal wound 2. History of ventral abdominal hernia repair at outside facility and developed seroma requiring incision, drainage and debridement x 2. Last debridement on 05/05/2024. 3. Sepsis 4. Mildly elevated LFTs. Hepatomegaly on ultrasound PLAN: -No surgical intervention planned -Encouraged a high-protein diet. Premier protein supplement added to help promote wound healing -Continue local wound care per wound care service -Continue IV antibiotics -Continue ICU management -Continue supportive care Physician [employer] Professional note has been reviewed by physician. Signing provider agrees with the documented findings, assessment, and plan of care. Past Medical History Past Medical History: Asthma, Diabetes Mellitus, Osteoarthritis (OA), Pulmonary Embolus (PE), Thyroid Disorder Additional Past Medical History / Comment(s): currently has wound vac to abdomen post abd surgery . hx of polyps History of Any Multi-Drug Resistant Organisms: None Reported Past Surgical History: Hernia Repair Additional Past Surgical History / Comment(s): ovarian cyst removal, colonoscopy, 01/2024 draining of abdominal fluid several times per pt with placement of wound vac. pt is poor historian Past Anesthesia/Blood Transfusion Reactions: No Reported Reaction, Motion Sickness Past Psychological History: Depression Smoking Status: Never smoker Past Alcohol Use History: Occasional Past Drug Use History: None Reported - Past Family History Sister(s) Family Medical History: Cancer Additional Family Medical History / Comment(s): breast cancer Medications and Allergies Home Medications Medication Instructions Recorded Confirmed Type Glimepiride [Amaryl] 4 mg PO DAILY 12/20/23 05/28/24 History Levothyroxine Sodium [Synthroid] 175 mcg PO DAILY 12/20/23 05/28/24 History Sertraline [Zoloft] 100 mg PO DAILY 12/20/23 05/28/24 History Acetaminophen Tab [Tylenol] 1,000 mg PO Q6HR PRN #30 tablet 05/07/24 05/28/24 Rx Ferrous Sulfate [Iron (65 MG 325 mg PO DAILY 05/28/24 05/28/24 History Elemental)] Furosemide [Lasix] 20 mg PO DAILY 05/28/24 05/28/24 History Tolterodine ER [Detrol LA] 4 mg PO DIRECTED 05/28/24 05/28/24 History metFORMIN HCL 1,000 mg PO DAILY 05/28/24 05/28/24 History Allergies Allergy/AdvReac Type Severity Reaction Status Date / Time No Known Allergies Allergy Verified 05/28/24 16:10 Surgical - Exam Vital Signs Temp Pulse Resp BP Pulse Ox 101.0 F H 106 H 20 103/53 89 L 05/28/24 16:06 05/28/24 16:06 05/28/24 16:06 05/28/24 16:06 05/28/24 16:06 Results - Labs 05/29/24 05:55 05/29/24 05:55 Abnormal Lab Results - Last 24 Hours (Table) 05/28/24 05/28/24 05/28/24 Range/Units 00:50 00:50 00:50 Hgb 9.5 L (11.4-16.0) gm/dL Hct 32.2 L (34.0-46.0) % MCV 72.9 L (80.0-100.0) fL MCH 21.4 L (25.0-35.0) pg MCHC 29.4 L (31.0-37.0) g/dL RDW 16.1 H (11.5-15.5) % Neutrophils # 8.5 H (1.3-7.7) k/uL Lymphocytes # 0.3 L (1.0-4.8) k/uL VBG pH (7.31-7.41) VBG HCO3 (24-28) mmol/L Sodium 135 L (137-145) mmol/L Potassium (3.5-5.1) mmol/L Chloride (98-107) mmol/L Carbon Dioxide (22-30) mmol/L BUN (7-17) mg/dL Glucose 259 H (74-99) mg/dL POC Glucose (mg/dL) (70-110) mg/dL Hemoglobin A1c (<=6.0) % Calcium 7.6 L (8.4-10.2) mg/dL AST (14-36) U/L ALT (4-34) U/L Alkaline Phosphatase (38-126) U/L Total Protein (6.3-8.2) g/dL Albumin (3.5-5.0) g/dL Procalcitonin 0.71 H (0.02-0.50) ng/mL Urine Appearance (Clear) Urine Protein (Negative) Urine Ketones (Negative) Urine Bacteria (None) /hpf Urine Mucus (None) /hpf 05/28/24 05/28/24 05/28/24 Range/Units 16:41 16:41 16:41 Hgb 9.6 L (11.4-16.0) gm/dL Hct 30.6 L (34.0-46.0) % MCV 69.7 L (80.0-100.0) fL MCH 21.8 L (25.0-35.0) pg MCHC (31.0-37.0) g/dL RDW 15.9 H (11.5-15.5) % Neutrophils # (1.3-7.7) k/uL Lymphocytes # 0.2 L (1.0-4.8) k/uL VBG pH 7.42 H (7.31-7.41) VBG HCO3 32 H (24-28) mmol/L Sodium 134 L (137-145) mmol/L Potassium 2.8 L (3.5-5.1) mmol/L Chloride 95 L (98-107) mmol/L Carbon Dioxide 31 H (22-30) mmol/L BUN 22 H (7-17) mg/dL Glucose 250 H (74-99) mg/dL POC Glucose (mg/dL) (70-110) mg/dL Hemoglobin A1c (<=6.0) % Calcium (8.4-10.2) mg/dL AST 52 H (14-36) U/L ALT 67 H (4-34) U/L Alkaline Phosphatase 245 H (38-126) U/L Total Protein 5.8 L (6.3-8.2) g/dL Albumin 3.1 L (3.5-5.0) g/dL Procalcitonin (0.02-0.50) ng/mL Urine Appearance (Clear) Urine Protein (Negative) Urine Ketones (Negative) Urine Bacteria (None) /hpf Urine Mucus (None) /hpf 05/28/24 05/28/24 05/29/24 Range/Units 21:57 22:04 05:55 Hgb (11.4-16.0) gm/dL Hct (34.0-46.0) % MCV (80.0-100.0) fL MCH (25.0-35.0) pg MCHC (31.0-37.0) g/dL RDW (11.5-15.5) % Neutrophils # (1.3-7.7) k/uL Lymphocytes # (1.0-4.8) k/uL VBG pH (7.31-7.41) VBG HCO3 (24-28) mmol/L Sodium 136 L (137-145) mmol/L Potassium (3.5-5.1) mmol/L Chloride (98-107) mmol/L Carbon Dioxide (22-30) mmol/L BUN (7-17) mg/dL Glucose 265 H (74-99) mg/dL POC Glucose (mg/dL) 244 H (70-110) mg/dL Hemoglobin A1c (<=6.0) % Calcium 7.8 L (8.4-10.2) mg/dL AST (14-36) U/L ALT (4-34) U/L Alkaline Phosphatase (38-126) U/L Total Protein (6.3-8.2) g/dL Albumin (3.5-5.0) g/dL Procalcitonin (0.02-0.50) ng/mL Urine Appearance Cloudy H (Clear) Urine Protein 1+ H (Negative) Urine Ketones Trace H (Negative) Urine Bacteria Rare H (None) /hpf Urine Mucus Rare H (None) /hpf 05/29/24 05/29/24 05/29/24 Range/Units 05:55 05:55 06:33 Hgb 9.7 L (11.4-16.0) gm/dL Hct 32.0 L (34.0-46.0) % MCV 72.4 L (80.0-100.0) fL MCH 21.9 L (25.0-35.0) pg MCHC 30.3 L (31.0-37.0) g/dL RDW 16.3 H (11.5-15.5) % Neutrophils # 8.7 H (1.3-7.7) k/uL Lymphocytes # 0.3 L (1.0-4.8) k/uL VBG pH (7.31-7.41) VBG HCO3 (24-28) mmol/L Sodium (137-145) mmol/L Potassium (3.5-5.1) mmol/L Chloride (98-107) mmol/L Carbon Dioxide (22-30) mmol/L BUN (7-17) mg/dL Glucose (74-99) mg/dL POC Glucose (mg/dL) 278 H (70-110) mg/dL Hemoglobin A1c 7.1 H (<=6.0) % Calcium (8.4-10.2) mg/dL AST (14-36) U/L ALT (4-34) U/L Alkaline Phosphatase (38-126) U/L Total Protein (6.3-8.2) g/dL Albumin (3.5-5.0) g/dL Procalcitonin (0.02-0.50) ng/mL Urine Appearance (Clear) Urine Protein (Negative) Urine Ketones (Negative) Urine Bacteria (None) /hpf Urine Mucus (None) /hpf 05/29/24 Range/Units 11:16 Hgb (11.4-16.0) gm/dL Hct (34.0-46.0) % MCV (80.0-100.0) fL MCH (25.0-35.0) pg MCHC (31.0-37.0) g/dL RDW (11.5-15.5) % Neutrophils # (1.3-7.7) k/uL Lymphocytes # (1.0-4.8) k/uL VBG pH (7.31-7.41) VBG HCO3 (24-28) mmol/L Sodium (137-145) mmol/L Potassium (3.5-5.1) mmol/L Chloride (98-107) mmol/L Carbon Dioxide (22-30) mmol/L BUN (7-17) mg/dL Glucose (74-99) mg/dL POC Glucose (mg/dL) 282 H (70-110) mg/dL Hemoglobin A1c (<=6.0) % Calcium (8.4-10.2) mg/dL AST (14-36) U/L ALT (4-34) U/L Alkaline Phosphatase (38-126) U/L Total Protein (6.3-8.2) g/dL Albumin (3.5-5.0) g/dL Procalcitonin (0.02-0.50) ng/mL Urine Appearance (Clear) Urine Protein (Negative) Urine Ketones (Negative) Urine Bacteria (None) /hpf Urine Mucus (None) /hpf Diabetes panel 05/28/24 05/28/24 05/29/24 Range/Units 00:50 16:41 05:55 Sodium 135 L 134 L 136 L (137-145) mmol/L Potassium 4.7 2.8 L 4.2 (3.5-5.1) mmol/L Chloride 104 95 L 103 (98-107) mmol/L Carbon Dioxide 23 31 H 24 (22-30) mmol/L BUN 17 22 H 17 (7-17) mg/dL Creatinine 0.55 0.61 0.52 (0.52-1.04) mg/dL Glucose 259 H 250 H 265 H (74-99) mg/dL Hemoglobin A1c (<=6.0) % Calcium 7.6 L 8.7 7.8 L (8.4-10.2) mg/dL AST 52 H (14-36) U/L ALT 67 H (4-34) U/L Alkaline Phosphatase 245 H (38-126) U/L Total Protein 5.8 L (6.3-8.2) g/dL Albumin 3.1 L (3.5-5.0) g/dL 05/29/24 Range/Units 05:55 Sodium (137-145) mmol/L Potassium (3.5-5.1) mmol/L Chloride (98-107) mmol/L Carbon Dioxide (22-30) mmol/L BUN (7-17) mg/dL Creatinine (0.52-1.04) mg/dL Glucose (74-99) mg/dL Hemoglobin A1c 7.1 H (<=6.0) % Calcium (8.4-10.2) mg/dL AST (14-36) U/L ALT (4-34) U/L Alkaline Phosphatase (38-126) U/L Total Protein (6.3-8.2) g/dL Albumin (3.5-5.0) g/dL Thyroid panel 05/29/24 Range/Units 05:55 TSH 0.614 (0.465-4.680) mIU/L Calcium panel 05/28/24 05/28/24 05/29/24 Range/Units 00:50 16:41 05:55 Calcium 7.6 L 8.7 7.8 L (8.4-10.2) mg/dL Phosphorus 2.7 (2.5-4.5) mg/dL Albumin 3.1 L (3.5-5.0) g/dL Pituitary panel 05/28/24 05/28/24 05/29/24 Range/Units 00:50 16:41 05:55 Sodium 135 L 134 L 136 L (137-145) mmol/L Potassium 4.7 2.8 L 4.2 (3.5-5.1) mmol/L Chloride 104 95 L 103 (98-107) mmol/L Carbon Dioxide 23 31 H 24 (22-30) mmol/L BUN 17 22 H 17 (7-17) mg/dL Creatinine 0.55 0.61 0.52 (0.52-1.04) mg/dL Glucose 259 H 250 H 265 H (74-99) mg/dL Calcium 7.6 L 8.7 7.8 L (8.4-10.2) mg/dL TSH (0.465-4.680) mIU/L 05/29/24 Range/Units 05:55 Sodium (137-145) mmol/L Potassium (3.5-5.1) mmol/L Chloride (98-107) mmol/L Carbon Dioxide (22-30) mmol/L BUN (7-17) mg/dL Creatinine (0.52-1.04) mg/dL Glucose (74-99) mg/dL Calcium (8.4-10.2) mg/dL TSH 0.614 (0.465-4.680) mIU/L Adrenal panel 05/28/24 05/28/24 05/29/24 Range/Units 00:50 16:41 05:55 Sodium 135 L 134 L 136 L (137-145) mmol/L Potassium 4.7 2.8 L 4.2 (3.5-5.1) mmol/L Chloride 104 95 L 103 (98-107) mmol/L Carbon Dioxide 23 31 H 24 (22-30) mmol/L BUN 17 22 H 17 (7-17) mg/dL Creatinine 0.55 0.61 0.52 (0.52-1.04) mg/dL Glucose 259 H 250 H 265 H (74-99) mg/dL Calcium 7.6 L 8.7 7.8 L (8.4-10.2) mg/dL Total Bilirubin 0.5 (0.2-1.3) mg/dL AST 52 H (14-36) U/L ALT 67 H (4-34) U/L Alkaline Phosphatase 245 H (38-126) U/L Total Protein 5.8 L (6.3-8.2) g/dL Albumin 3.1 L (3.5-5.0) g/dL
[2024-05-29] MEDS: CEFEPIME 2 GM in SODIUM CHLORIDE 0.9% 100 ML IVPB SCH (16:08)
[2024-05-29] MEDS: ZINC OXIDE PASTE (Z-GUARD) 1 APPLIC TOPICAL SCH (16:09)
--- NOTE | 2024-05-29 16:16 | P.PN ---
Subjective Progress Note Date: 05/29/24 Hospital course: Patient is a 58-year-old female with a type 2 diabetes, asthma, presented to the ED with fever and abdominal pain. Patient states she has a history of recurrent abdominal problems. She had previous hernia repair from outside facility which was complicated with an infected abdominal wall seroma. She underwent incision, drainage, and debridement by Dr. Jasso on 02/05/2024. Subsequently, she had recurrent fluid collection which was followed by another incision, drainage, and debridement on 05/05/2024. Patient regularly seen wound care for drainage and dressing changes. Patient had a wound VAC, but she removed the yesterday. She said she removed the wound VAC because she was out of supplies to change it. Reported a lot of drainage from her wound which prompted her to the call EMS. While in the ED patient was hypotensive. Was given 3L NS with no improvement. Central line was placed and she was transferred to ICU for further assessment. Pulmonology was consulted. ID consulted. General surgery consulted. Wound care consulted. Patient on Levophed for blood pressure support, Zosyn and Vanco for empiric antibiotic coverage. Subjective: Patient seen and examined at bedside. All Systems reviewed and pertinent positives and negatives noted in HPI, all other symptoms are negative Objective: Vital signs reviewed. Physical examination: Vitals: T 101F, ME 109, RR 20, BP 110/64, O2 sat 100% on 3 L nasal cannula General: Slightly lethargic but arousable to tactile and vocal stimuli, no distress, appears at stated age, obese Derm: no unusual rashes/lesions, warm Head: atraumatic, normocephalic, symmetric Eyes: EOMI, anicteric sclera, pupils equal round reactive to light ENT: Nose and ears atraumatic Mouth: no lip lesion, mucus membranes moist Cardiovascular: S1S2 reg, no murmur, positive dorsalis pedis pulse bilateral, no edema Lungs: CTA bilateral, no rhonchi, no rales, no accessory muscle use Abdominal: soft, tender to palpation, ~10 cm ulceration lower left abdomen with surrounding erythema extending to the upper abdomen with packing Ext: muscle strength 5 out of 5 in all 4 extremities grossly, no gross muscle atrophy Neuro: CN II-XI grossly intact, no gross focal neuro deficits Psych: lethargic arousable, oriented to person, place, and time Data reviewed: Labs: WBC 9.3, hemoglobin 9.7, hematocrit 32.0, MCV 72.4, platelet count 250, sodium 136, potassium 4.2, bicarb 24, chloride 103, BUN 17, creatinine 0.52, glucose 265, calcium 7.8, Chest x-ray shows some mild atelectasis at the left base, cardiomegaly, right central venous catheter with tip is in the right atrium Assessment/Plan: Patient is a 58-year-old female with a type 2 diabetes, asthma, presented to the ED with fever and abdominal pain. Patient admitted for evaluation of septic shock. #Septic shock, likely abdominal source vs less likely pulmonary #Unhealing abdominal ulceration Zosyn discontinued Started on cefepime IVPB every 8 hours Continue with vancomycin dosed by pharmacy IVPB every 12 hours Monitor for renal toxicity Normal saline at 130 cc/hr Aerobic/anaerobic wound culture ordered Blood and urine cultures ordered Cardiac monitoring Howard catheter in place Monitor for fever Follow-up CBC Wound care consulted Surgery consult ID consulted Patient admitted to ICU for persistent hypotension Currently on Levophed 32 Mg IV 0.03 mcg/kg/min by ICU #Small left-sided pulmonary effusion #Suspected pneumonia Legionella antigen ordered Procalcitonin ordered, is 0.71 Sputum culture ordered Continue with IV antibiotics as stated above Pulmonology consulted #Metabolic alkalosis, resolved Given normal saline Monitor with follow-up CMP #Type 2 diabetes #Hyperglycemia Glucose 250 Hold oral diabetic medication Insulin SQ sliding scale, needs long acting insulin added to regimen Accu-Chek Hypoglycemic protocol #Anxiety 1 mg IV ativan every 6 hours are as needed #Hypokalemia, resolved K 2.8 improved to K 4.2 replaced in the ED Monitor with follow-up BMP #Microcytic anemia Hgb 9.6 (at baseline), MCV 69.7 Denies active bleeding Has history of iron deficiency anemia Start oral iron replacement upon stabilization of infection F: NS at 130 cc/hr E: Replete electrolytes as needed N: Regular diet A: Ambulatory DVT prophylaxis: Heparin SQ 5000 unit q8hrs, SCD CODE STATUS: Full code I saw and evaluated the patient during the sawyer and critical portions of this encounter, and discussed the case in detail with the resident author of this note, I agree with the Assessment and Plan, and my changes, if any, are highlighted in blue. Objective - Vital Signs Vital signs: Vital Signs Temp 97.6 F 09/19/24 04:00 Pulse 54 L 05/29/24 07:00 Resp 19 05/29/24 07:00 BP 93/55 05/29/24 07:00 Pulse Ox 98 05/29/24 07:00 FiO2 Intake & Output 05/28/24 05/29/24 05/29/24 18:59 06:59 18:59 Intake Total 1489.168 130 Output Total 985 75 Balance 504.168 55 Weight 102.512 kg 106.9 kg Intake: IV 1170 130 Sodium Chloride 0.9% 1, 1170 130 000 ml @ 130 mls/hr IV . Q7H42M [facility] Rx#:[id number] Intake, IV Titration 319.168 Amount Norepinephrine 32 mg In 19.168 Sodium Chloride 0.9% 218 ml @ 0.03 MCG/KG/MIN 1. 442 mls/hr IV .Q24H ONE Rx#:[id number] Piperacillin-Tazobactam 3 100 .375 gm In Sodium Chloride 0.9% 100 ml @ 25 mls/hr IVPB Q8HR [facility] Rx# :[id number] Potassium Chloride 20 meq 200 In Water For Injection 1 100ml.bag @ 50 mls/hr IVPB Q2H [facility] Rx#: [id number] Output: Urine 985 75 Uretheral (Howard) 400 Other: Voiding Method Indwelling Catheter - Labs CBC & Chem 7: 05/29/24 05:55 05/29/24 05:55 Labs: Abnormal Lab Results - Last 24 Hours (Table) 05/28/24 05/28/24 05/28/24 Range/Units 00:50 00:50 16:41 Hgb 9.5 L 9.6 L (11.4-16.0) gm/dL Hct 32.2 L 30.6 L (34.0-46.0) % MCV 72.9 L 69.7 L (80.0-100.0) fL MCH 21.4 L 21.8 L (25.0-35.0) pg MCHC 29.4 L (31.0-37.0) g/dL RDW 16.1 H 15.9 H (11.5-15.5) % Neutrophils # 8.5 H (1.3-7.7) k/uL Lymphocytes # 0.3 L 0.2 L (1.0-4.8) k/uL VBG pH (7.31-7.41) VBG HCO3 (24-28) mmol/L Sodium 135 L (137-145) mmol/L Potassium (3.5-5.1) mmol/L Chloride (98-107) mmol/L Carbon Dioxide (22-30) mmol/L BUN (7-17) mg/dL Glucose 259 H (74-99) mg/dL POC Glucose (mg/dL) (70-110) mg/dL Calcium 7.6 L (8.4-10.2) mg/dL AST (14-36) U/L ALT (4-34) U/L Alkaline Phosphatase (38-126) U/L Total Protein (6.3-8.2) g/dL Albumin (3.5-5.0) g/dL Urine Appearance (Clear) Urine Protein (Negative) Urine Ketones (Negative) Urine Bacteria (None) /hpf Urine Mucus (None) /hpf 05/28/24 05/28/24 05/28/24 Range/Units 16:41 16:41 21:57 Hgb (11.4-16.0) gm/dL Hct (34.0-46.0) % MCV (80.0-100.0) fL MCH (25.0-35.0) pg MCHC (31.0-37.0) g/dL RDW (11.5-15.5) % Neutrophils # (1.3-7.7) k/uL Lymphocytes # (1.0-4.8) k/uL VBG pH 7.42 H (7.31-7.41) VBG HCO3 32 H (24-28) mmol/L Sodium 134 L (137-145) mmol/L Potassium 2.8 L (3.5-5.1) mmol/L Chloride 95 L (98-107) mmol/L Carbon Dioxide 31 H (22-30) mmol/L BUN 22 H (7-17) mg/dL Glucose 250 H (74-99) mg/dL POC Glucose (mg/dL) 244 H (70-110) mg/dL Calcium (8.4-10.2) mg/dL AST 52 H (14-36) U/L ALT 67 H (4-34) U/L Alkaline Phosphatase 245 H (38-126) U/L Total Protein 5.8 L (6.3-8.2) g/dL Albumin 3.1 L (3.5-5.0) g/dL Urine Appearance (Clear) Urine Protein (Negative) Urine Ketones (Negative) Urine Bacteria (None) /hpf Urine Mucus (None) /hpf 05/28/24 05/29/24 05/29/24 Range/Units 22:04 05:55 05:55 Hgb 9.7 L (11.4-16.0) gm/dL Hct 32.0 L (34.0-46.0) % MCV 72.4 L (80.0-100.0) fL MCH 21.9 L (25.0-35.0) pg MCHC 30.3 L (31.0-37.0) g/dL RDW 16.3 H (11.5-15.5) % Neutrophils # 8.7 H (1.3-7.7) k/uL Lymphocytes # 0.3 L (1.0-4.8) k/uL VBG pH (7.31-7.41) VBG HCO3 (24-28) mmol/L Sodium 136 L (137-145) mmol/L Potassium (3.5-5.1) mmol/L Chloride (98-107) mmol/L Carbon Dioxide (22-30) mmol/L BUN (7-17) mg/dL Glucose 265 H (74-99) mg/dL POC Glucose (mg/dL) (70-110) mg/dL Calcium 7.8 L (8.4-10.2) mg/dL AST (14-36) U/L ALT (4-34) U/L Alkaline Phosphatase (38-126) U/L Total Protein (6.3-8.2) g/dL Albumin (3.5-5.0) g/dL Urine Appearance Cloudy H (Clear) Urine Protein 1+ H (Negative) Urine Ketones Trace H (Negative) Urine Bacteria Rare H (None) /hpf Urine Mucus Rare H (None) /hpf 05/29/24 Range/Units 06:33 Hgb (11.4-16.0) gm/dL Hct (34.0-46.0) % MCV (80.0-100.0) fL MCH (25.0-35.0) pg MCHC (31.0-37.0) g/dL RDW (11.5-15.5) % Neutrophils # (1.3-7.7) k/uL Lymphocytes # (1.0-4.8) k/uL VBG pH (7.31-7.41) VBG HCO3 (24-28) mmol/L Sodium (137-145) mmol/L Potassium (3.5-5.1) mmol/L Chloride (98-107) mmol/L Carbon Dioxide (22-30) mmol/L BUN (7-17) mg/dL Glucose (74-99) mg/dL POC Glucose (mg/dL) 278 H (70-110) mg/dL Calcium (8.4-10.2) mg/dL AST (14-36) U/L ALT (4-34) U/L Alkaline Phosphatase (38-126) U/L Total Protein (6.3-8.2) g/dL Albumin (3.5-5.0) g/dL Urine Appearance (Clear) Urine Protein (Negative) Urine Ketones (Negative) Urine Bacteria (None) /hpf Urine Mucus (None) /hpf
[2024-05-29 16:48] LABS: Glucose,Whole Blood 280 mg/dL (70-110)
[2024-05-29 20:34] LABS: Glucose,Whole Blood 190 mg/dL (70-110)
[2024-05-29] MEDS: INSULIN DETEMIR (LEVEMIR) 100 UNIT/ML SYR SQ SCH (20:35)
--- NOTE | 2024-05-29 22:11 | P.CONS ---
History of Present Illness - Reason for Consult Consult date: 05/29/24 Sepsis Requesting physician: Samuel Santana - Chief Complaint Increasing drainage from abdominal wound x 1 day - History of Present Illness Patient is a 58-year-old female with a past medical history nephric and for diabetes mellitus osteoarthritis PE hypothyroidism in this patient who did have a ventral hernia repair complicated by development of a seroma patient did have a drainage of the seroma in January 2024 and subsequently in April 2024 followed by application of wound VAC patient apparently seem to have a problem with increasing drainage and the patient ran out of her supply hence the patient pulled out her wound VAC subsequently calling EMS who brought the patient to the hospital on arrival to the ER patient was noticed to be hypotensive received 3 L fluid boluses subsequently was started on pressor support and has been admitted to the ICU patient was started on broad spec antibiotic the form of Zosyn and vancomycin Zosyn was subsequently switched to cefepime infectious he was consulted for further management of antibiotic therapy patient did not recall any fever at home however patient did have a temperature of 101 degrees for nigh t on presentation to the ER patient was tachycardic and hypotensive currently on 3 L nasal cannula oxygen patient did have white count of 7.4 creatinine has been normal liver isms mildly elevated urine has been negative patient did have chest x-ray which did shows cardiomegaly minimal infiltrate in left costophrenic angle patient did have a gallbladder ultrasound prominent common bile duct and hep atomegaly patient denies significant abdominal pain main symptom remains to be increasing drainage from her abdominal wound but no foul-smelling did have some nausea but no vomiting no diarrhea or constipation Review of Systems Positive point and negatives has been mentioned in the HPI, complete review of systems was performed and all other systems are negative Past Medical History Past Medical History: Asthma, Diabetes Mellitus, Osteoarthritis (OA), Pulmonary Embolus (PE), Thyroid Disorder Additional Past Medical History / Comment(s): currently has wound vac to abdomen post abd surgery . hx of polyps History of Any Multi-Drug Resistant Organisms: None Reported Past Surgical History: Hernia Repair Additional Past Surgical History / Comment(s): ovarian cyst removal, colonoscopy, 01/2024 draining of abdominal fluid several times per pt with placement of wound vac. pt is poor historian Past Anesthesia/Blood Transfusion Reactions: No Reported Reaction, Motion Sickness Past Psychological History: Depression Smoking Status: Never smoker Past Alcohol Use History: Occasional Past Drug Use History: None Reported - Past Family History Sister(s) Family Medical History: Cancer Additional Family Medical History / Comment(s): breast cancer Medications and Allergies Home Medications Medication Instructions Recorded Confirmed Type Glimepiride [Amaryl] 4 mg PO DAILY 12/20/23 05/28/24 History Levothyroxine Sodium [Synthroid] 175 mcg PO DAILY 12/20/23 05/28/24 History Sertraline [Zoloft] 100 mg PO DAILY 12/20/23 05/28/24 History Acetaminophen Tab [Tylenol] 1,000 mg PO Q6HR PRN #30 tablet 05/07/24 05/28/24 Rx Ferrous Sulfate [Iron (65 MG 325 mg PO DAILY 05/28/24 05/28/24 History Elemental)] Furosemide [Lasix] 20 mg PO DAILY 05/28/24 05/28/24 History Tolterodine ER [Detrol LA] 4 mg PO DIRECTED 05/28/24 05/28/24 History metFORMIN HCL 1,000 mg PO DAILY 05/28/24 05/28/24 History Allergies Allergy/AdvReac Type Severity Reaction Status Date / Time No Known Allergies Allergy Verified 05/28/24 16:10 Physical Exam Vitals: Vital Signs Temp Pulse Pulse Resp BP Pulse Ox 05/29/24 11:00 59 L 14 106/68 99 05/29/24 10:30 54 L 17 110/93 100 05/29/24 10:00 61 22 94/56 98 05/29/24 09:30 70 22 97/61 97 05/29/24 09:00 64 18 106/59 94 L 05/29/24 08:36 70 05/29/24 08:30 75 20 110/74 98 05/29/24 08:26 74 05/29/24 08:23 96 05/29/24 08:00 97.6 F 79 14 115/73 97 05/29/24 07:30 52 L 17 96/63 97 05/29/24 07:00 54 L 19 93/55 98 05/29/24 06:30 59 L 14 111/59 96 05/29/24 06:00 67 12 115/73 95 05/29/24 05:30 68 23 125/71 97 05/29/24 05:00 36 L 26 H 91/61 100 05/29/24 04:30 50 L 16 93/56 99 05/29/24 04:00 97.6 F 49 L 52 L 15 82/67 99 05/29/24 03:30 59 L 22 97/56 99 05/29/24 03:00 53 L 15 98/56 98 05/29/24 02:30 48 L 14 93/58 98 05/29/24 02:00 51 L 14 97/62 99 05/29/24 01:30 51 L 9 L 92/56 97 05/29/24 01:00 53 L 15 100/61 98 05/29/24 00:30 63 18 98/66 98 05/29/24 00:00 98.5 F 65 55 L 16 84/48 97 05/28/24 23:30 64 18 84/54 98 05/28/24 23:24 70 18 84/54 98 05/28/24 23:00 69 12 86/49 98 05/28/24 22:30 82 23 90/56 96 05/28/24 22:00 97.8 F 55 L 66 28 H 86/59 100 05/28/24 21:55 19 05/28/24 21:43 98.1 F 75 18 88/55 96 05/28/24 21:35 97.7 F 78 18 84/49 96 05/28/24 21:08 98.4 F 81 18 88/53 95 05/28/24 20:38 78 05/28/24 20:30 98.4 F 79 18 88/55 94 L 05/28/24 20:24 80 05/28/24 19:58 80 22 78/52 94 L 05/28/24 19:48 79 22 77/42 93 L 05/28/24 19:30 80 18 73/57 95 05/28/24 19:18 98.3 F 80 20 73/57 95 05/28/24 19:00 80 17 83/46 95 05/28/24 18:30 82 19 87/46 96 05/28/24 18:00 89 21 88/46 95 05/28/24 17:30 98.6 F 88 20 105/51 95 05/28/24 17:00 94 20 121/54 99 05/28/24 16:56 109 H 20 110/64 100 05/28/24 16:06 101.0 F H 106 H 20 103/53 89 L Intake and Output 05/28/24 05/29/24 05/29/24 22:59 06:59 14:59 Intake Total 310.217 7509.774 390 Output Total 450 535 160 Balance -218.606 722.774 230 Intake: IV 130 1040 390 Sodium Chloride 0.9% 1, 130 1040 390 000 ml @ 130 mls/hr IV . Q7H42M [facility] Rx#:[id number] Intake, IV Titration 101.394 217.774 Amount Norepinephrine 32 mg In 1.394 17.774 Sodium Chloride 0.9% 218 ml @ 0.03 MCG/KG/MIN 1. 442 mls/hr IV .Q24H ONE Rx#:[id number] Piperacillin-Tazobactam 3 100 .375 gm In Sodium Chloride 0.9% 100 ml @ 25 mls/hr IVPB Q8HR [facility] Rx# :[id number] Potassium Chloride 20 meq 100 100 In Water For Injection 1 100ml.bag @ 50 mls/hr IVPB Q2H [facility] Rx#: [id number] Output: Urine 450 535 160 Uretheral (Howard) 400 Other: Voiding Method Indwelling Catheter Indwelling Catheter Indwelling Catheter Weight 102.512 kg 106.9 kg GENERAL DESCRIPTION: Middle-aged female lying in bed, no distress. No tachypnea or accessory muscle of respiration use. HEENT: Shows Pallor , no scleral icterus. Oral mucous membrane is dry. No pharyngeal erythema or thrush NECK: Trachea central, no thyromegaly. LUNGS: Unlabored breathing. Decreased breath sound the base HEART: S1, S2, regular rate and rhythm. No loud murmur ABDOMEN: Soft, patient did have a midline abdominal wound base with no s ignificant slough. There are some surrounding skin excoriation likely from drainage EXTREMITIES: No edema of feet. SKIN: No rash, no masses palpable. NEUROLOGICAL: The patient is awake, alert, oriented x3, mood and affect normal. Results CBC & Chem 7: 05/29/24 05:55 05/29/24 05:55 Labs: Abnormal Lab Results - Last 24 Hours (Table) 05/28/24 05/28/24 05/28/24 Range/Units 00:50 00:50 00:50 Hgb 9.5 L (11.4-16.0) gm/dL Hct 32.2 L (34.0-46.0) % MCV 72.9 L (80.0-100.0) fL MCH 21.4 L (25.0-35.0) pg MCHC 29.4 L (31.0-37.0) g/dL RDW 16.1 H (11.5-15.5) % Neutrophils # 8.5 H (1.3-7.7) k/uL Lymphocytes # 0.3 L (1.0-4.8) k/uL VBG pH (7.31-7.41) VBG HCO3 (24-28) mmol/L Sodium 135 L (137-145) mmol/L Potassium (3.5-5.1) mmol/L Chloride (98-107) mmol/L Carbon Dioxide (22-30) mmol/L BUN (7-17) mg/dL Glucose 259 H (74-99) mg/dL POC Glucose (mg/dL) (70-110) mg/dL Hemoglobin A1c (<=6.0) % Calcium 7.6 L (8.4-10.2) mg/dL AST (14-36) U/L ALT (4-34) U/L Alkaline Phosphatase (38-126) U/L Total Protein (6.3-8.2) g/dL Albumin (3.5-5.0) g/dL Procalcitonin 0.71 H (0.02-0.50) ng/mL Urine Appearance (Clear) Urine Protein (Negative) Urine Ketones (Negative) Urine Bacteria (None) /hpf Urine Mucus (None) /hpf 05/28/24 05/28/24 05/28/24 Range/Units 16:41 16:41 16:41 Hgb 9.6 L (11.4-16.0) gm/dL Hct 30.6 L (34.0-46.0) % MCV 69.7 L (80.0-100.0) fL MCH 21.8 L (25.0-35.0) pg MCHC (31.0-37.0) g/dL RDW 15.9 H (11.5-15.5) % Neutrophils # (1.3-7.7) k/uL Lymphocytes # 0.2 L (1.0-4.8) k/uL VBG pH 7.42 H (7.31-7.41) VBG HCO3 32 H (24-28) mmol/L Sodium 134 L (137-145) mmol/L Potassium 2.8 L (3.5-5.1) mmol/L Chloride 95 L (98-107) mmol/L Carbon Dioxide 31 H (22-30) mmol/L BUN 22 H (7-17) mg/dL Glucose 250 H (74-99) mg/dL POC Glucose (mg/dL) (70-110) mg/dL Hemoglobin A1c (<=6.0) % Calcium (8.4-10.2) mg/dL AST 52 H (14-36) U/L ALT 67 H (4-34) U/L Alkaline Phosphatase 245 H (38-126) U/L Total Protein 5.8 L (6.3-8.2) g/dL Albumin 3.1 L (3.5-5.0) g/dL Procalcitonin (0.02-0.50) ng/mL Urine Appearance (Clear) Urine Protein (Negative) Urine Ketones (Negative) Urine Bacteria (None) /hpf Urine Mucus (None) /hpf 05/28/24 05/28/24 05/29/24 Range/Units 21:57 22:04 05:55 Hgb (11.4-16.0) gm/dL Hct (34.0-46.0) % MCV (80.0-100.0) fL MCH (25.0-35.0) pg MCHC (31.0-37.0) g/dL RDW (11.5-15.5) % Neutrophils # (1.3-7.7) k/uL Lymphocytes # (1.0-4.8) k/uL VBG pH (7.31-7.41) VBG HCO3 (24-28) mmol/L Sodium 136 L (137-145) mmol/L Potassium (3.5-5.1) mmol/L Chloride (98-107) mmol/L Carbon Dioxide (22-30) mmol/L BUN (7-17) mg/dL Glucose 265 H (74-99) mg/dL POC Glucose (mg/dL) 244 H (70-110) mg/dL Hemoglobin A1c (<=6.0) % Calcium 7.8 L (8.4-10.2) mg/dL AST (14-36) U/L ALT (4-34) U/L Alkaline Phosphatase (38-126) U/L Total Protein (6.3-8.2) g/dL Albumin (3.5-5.0) g/dL Procalcitonin (0.02-0.50) ng/mL Urine Appearance Cloudy H (Clear) Urine Protein 1+ H (Negative) Urine Ketones Trace H (Negative) Urine Bacteria Rare H (None) /hpf Urine Mucus Rare H (None) /hpf 05/29/24 05/29/24 05/29/24 Range/Units 05:55 05:55 06:33 Hgb 9.7 L (11.4-16.0) gm/dL Hct 32.0 L (34.0-46.0) % MCV 72.4 L (80.0-100.0) fL MCH 21.9 L (25.0-35.0) pg MCHC 30.3 L (31.0-37.0) g/dL RDW 16.3 H (11.5-15.5) % Neutrophils # 8.7 H (1.3-7.7) k/uL Lymphocytes # 0.3 L (1.0-4.8) k/uL VBG pH (7.31-7.41) VBG HCO3 (24-28) mmol/L Sodium (137-145) mmol/L Potassium (3.5-5.1) mmol/L Chloride (98-107) mmol/L Carbon Dioxide (22-30) mmol/L BUN (7-17) mg/dL Glucose (74-99) mg/dL POC Glucose (mg/dL) 278 H (70-110) mg/dL Hemoglobin A1c 7.1 H (<=6.0) % Calcium (8.4-10.2) mg/dL AST (14-36) U/L ALT (4-34) U/L Alkaline Phosphatase (38-126) U/L Total Protein (6.3-8.2) g/dL Albumin (3.5-5.0) g/dL Procalcitonin (0.02-0.50) ng/mL Urine Appearance (Clear) Urine Protein (Negative) Urine Ketones (Negative) Urine Bacteria (None) /hpf Urine Mucus (None) /hpf 05/29/24 Range/Units 11:16 Hgb (11.4-16.0) gm/dL Hct (34.0-46.0) % MCV (80.0-100.0) fL MCH (25.0-35.0) pg MCHC (31.0-37.0) g/dL RDW (11.5-15.5) % Neutrophils # (1.3-7.7) k/uL Lymphocytes # (1.0-4.8) k/uL VBG pH (7.31-7.41) VBG HCO3 (24-28) mmol/L Sodium (137-145) mmol/L Potassium (3.5-5.1) mmol/L Chloride (98-107) mmol/L Carbon Dioxide (22-30) mmol/L BUN (7-17) mg/dL Glucose (74-99) mg/dL POC Glucose (mg/dL) 282 H (70-110) mg/dL Hemoglobin A1c (<=6.0) % Calcium (8.4-10.2) mg/dL AST (14-36) U/L ALT (4-34) U/L Alkaline Phosphatase (38-126) U/L Total Protein (6.3-8.2) g/dL Albumin (3.5-5.0) g/dL Procalcitonin (0.02-0.50) ng/mL Urine Appearance (Clear) Urine Protein (Negative) Urine Ketones (Negative) Urine Bacteria (None) /hpf Urine Mucus (None) /hpf Assessment and Plan (1) Septic shock Current Visit: Yes Status: Acute Code(s): A41.9 - SEPSIS, UNSPECIFIED ORGANISM; R65.21 - SEVERE SEPSIS WITH SEPTIC SHOCK SNOMED Code(s): 54168246 (2) Open abdominal wall wound Current Visit: Yes Status: Acute Code(s): S31.109A - UNSP OPN WND ABD WALL, UNSP Q W/O PENET PERIT CAV, INIT SNOMED Code(s): 396680844 (3) Abdominal wall cellulitis Current Visit: No Status: Acute Code(s): L03.311 - CELLULITIS OF ABDOMINAL WALL SNOMED Code(s): 31279018 Plan: 1patient with sepsis in this patient who did have a fever hypotension tachycardia meeting criteria for SIRS source likely abdominal as currently no other obvious focus of infection chest x-ray no pneumonia urine has been nega tive patient did have complicated abdominal history with development of seroma post ventral hernia repair and now being admitted to hospital with increasing drainage with some surrounding skin excoriation. [address] abdominal pelvis to rule out any intra-abdominal collection that may need to be drained 3-blood and local culture has been obtained results will be followed 4-patient is covered with the cefepime vancomycin to to continue while watching kidney function closely We will follow on clinical condition and cultures to further adjust medication if needed Thank you for this consultation we will follow the patient along with you Dictation was produced using [email or web address] dictation software. please excuse any grammatical, word or spelling errors. Time with Patient: Greater than 30
[2024-05-30] MEDS: NOREPINEPHRINE 32 MG in SODIUM CHLORIDE 0.9% 218 ML IV SCH (02:46)
[2024-05-30 03:58] LABS: Glucose,Whole Blood 143 mg/dL (70-110)
[2024-05-30 06:03] LABS: Glucose,Whole Blood 146 mg/dL (70-110)
[2024-05-30 06:07] LABS: Anisocytosis Slight; Basophils % (A) 0 %; Eosinophils # (A) 0.6 k/uL (0-0.7); Eosinophils % (A) 6 %; HCT 29.1 % (34.0-46.0); HGB 8.9 gm/dL (11.4-16.0); Hypochromasia Marked; Lymphocytes # (A) 1.5 k/uL (1.0-4.8); Lymphocytes % (A) 14 %; MCH 22.2 pg (25.0-35.0); MCHC 30.6 g/dL (31.0-37.0); MCV 72.7 fL (80.0-100.0); Mean Platelet Volume 7.1; Microcytosis Moderate; Monocytes # (A) 0.7 k/uL (0-1.0); Monocytes % (A) 6 %; Neutrophils # (A) 7.8 k/uL (1.3-7.7); Neutrophils % (A) 72 %; Platelet Count 257 k/uL (150-450); RDW 16.6 % (11.5-15.5); WBC 10.8 k/uL (3.8-10.6)
[2024-05-30 06:22] LABS: African American GFR (CKD) >90 (>60 ml/min/1.73 sqM); Anion Gap 4 mmol/L; Blood Urea Nitrogen 14 mg/dL (7-17); Calcium 8.4 mg/dL (8.4-10.2); Carbon Dioxide 29 mmol/L (22-30); Chloride 107 mmol/L (98-107); Glucose 135 mg/dL (74-99); Magnesium 2.1 mg/dL (1.6-2.3); Non-African American GFR(CKD) 88 (>60 ml/min/1.73 sqM); Potassium 3.8 mmol/L (3.5-5.1); Sodium 140 mmol/L (137-145)
[2024-05-30] MEDS: POTASSIUM CHLORIDE ER 20 MEQ TAB.ER PO SCH (07:04)
[2024-05-30] MEDS: SERTRALINE 100 MG TAB PO SCH (08:43)
--- NOTE | 2024-05-30 09:20 | P.PN ---
Subjective Progress Note Date: 05/30/24 CHIEF COMPLAINT: Abdominal wound HISTORY OF PRESENT ILLNESS: Patient currently in ICU for sepsis. She was able to come off the Levophed this morning. She is afebrile. Denies any abdominal pain. Denies any nausea or vomiting. Tolerating diet. WBC 10.8 Hgb 8.9 PHYSICAL EXAM: VITAL SIGNS: Reviewed. GENERAL: Well-developed in no acute distress. ABDOMEN: Soft. Nondistended. Nontender. Abdominal wound mid abdomen healthy tissue. Serous drainage noted. Excoriation around the wound with decreased erythema. Minimal erythema upper abdomen. NEUROLOGIC: Alert and oriented. Cranial nerves II through XII grossly intact. ASSESSMENT: 1. Abdominal wound 2. Abdominal wall cellulitis and excoriation 3. History of ventral abdominal hernia repair at outside facility and developed seroma requiring incision, drainage and debridement x 2. Last debridement on 05/05/2024. 4. Sepsis PLAN: -Infectious ease recommendations noted. CT scan abdomen pelvis with oral and IV contrast ordered -Continue antibiotics per infectious disease -Continue local wound care per wound care service -Continue a high-protein diet to promote wound healing -No surgical intervention planned -Nursing staff has been instructed to take a picture of the abdominal wound Physician Sales Support Administrator note has been reviewed by physician. Signing provider agrees with the documented findings, assessment, and plan of care. Objective - Vital Signs Vital signs: Vital Signs Temp 98.2 F 05/30/24 06:00 Pulse 67 05/30/24 07:00 Resp 20 05/30/24 07:00 BP 104/70 05/30/24 07:00 Pulse Ox 93 L 05/30/24 07:00 FiO2 Intake & Output 05/29/24 05/30/24 05/30/24 18:59 06:59 18:59 Intake Total 2997.881 4550.154 202.906 Output Total 645 1775 125 Balance 750.414 -64.846 77.906 Weight 106.9 kg 109.9 kg Intake: IV 1390 1100 100 Sodium Chloride 0.9% 1, 1000 1100 100 000 ml @ 100 mls/hr IV . Q10H [facility] Rx#:[id number] Sodium Chloride 0.9% 1, 390 000 ml @ 130 mls/hr IV . Q7H42M [facility] Rx#:[id number] Intake, IV Titration 5.414 610.154 102.906 Amount Cefepime 2 gm In Sodium 100 100 Chloride 0.9% 100 ml @ 25 mls/hr IVPB Q8HR [facility] Rx# :[id number] Norepinephrine 32 mg In 5.414 3.608 Sodium Chloride 0.9% 218 ml @ 0.03 MCG/KG/MIN 1. 442 mls/hr IV .Q24H [facility] Rx#:[id number] Norepinephrine 32 mg In 6.546 2.906 Sodium Chloride 0.9% 218 ml @ 0.03 MCG/KG/MIN 1. 503 mls/hr IV .Q24H [facility] Rx#:[id number] Vancomycin 1,750 mg In 500 Sodium Chloride 0.9% 500 ml 500 ml @ 167 mls/hr IVPB Q12H [facility] Rx#: [id number] Output: Urine 645 1775 125 Other: Voiding Method Indwelling Catheter Indwelling Catheter # Bowel Movements 0 - Labs CBC & Chem 7: 05/30/24 05:29 05/30/24 05:29 Labs: Abnormal Lab Results - Last 24 Hours (Table) 05/29/24 05/29/24 05/29/24 Range/Units 11:16 16:46 20:32 WBC (3.8-10.6) k/uL Hgb (11.4-16.0) gm/dL Hct (34.0-46.0) % MCV (80.0-100.0) fL MCH (25.0-35.0) pg MCHC (31.0-37.0) g/dL RDW (11.5-15.5) % Neutrophils # (1.3-7.7) k/uL Glucose (74-99) mg/dL POC Glucose (mg/dL) 282 H 280 H 190 H (70-110) mg/dL 05/30/24 05/30/24 05/30/24 Range/Units 03:56 05:29 05:29 WBC 10.8 H (3.8-10.6) k/uL Hgb 8.9 L (11.4-16.0) gm/dL Hct 29.1 L (34.0-46.0) % MCV 72.7 L (80.0-100.0) fL MCH 22.2 L (25.0-35.0) pg MCHC 30.6 L (31.0-37.0) g/dL RDW 16.6 H (11.5-15.5) % Neutrophils # 7.8 H (1.3-7.7) k/uL Glucose 135 H (74-99) mg/dL POC Glucose (mg/dL) 143 H (70-110) mg/dL 05/30/24 Range/Units 06:02 WBC (3.8-10.6) k/uL Hgb (11.4-16.0) gm/dL Hct (34.0-46.0) % MCV (80.0-100.0) fL MCH (25.0-35.0) pg MCHC (31.0-37.0) g/dL RDW (11.5-15.5) % Neutrophils # (1.3-7.7) k/uL Glucose (74-99) mg/dL POC Glucose (mg/dL) 146 H (70-110) mg/dL Microbiology - Last 24 Hours (Table) 05/28/24 13:00 Urine Culture - Final Urine,Voided 05/28/24 16:41 Blood Culture - Preliminary Blood 05/28/24 00:32 Gram Stain - Preliminary Abdomen
[2024-05-30] MEDS: IOPAMIDOL CONTRAST (ORAL USE) VIAL PO PRN (11:06)
[2024-05-30 11:23] LABS: Glucose,Whole Blood 161 mg/dL (70-110)
--- NOTE | 2024-05-30 11:46 | P.PN ---
Subjective Progress Note Date: 05/30/24 Patient is a 58-year-old white female with past medical history significant for hernia repair at outside facility. Developed subsequent abdominal wall seroma, which was thought to be infected. Underwent I&D by Dr. Jasso 02/05/2024. She ended up with a wound VAC. Had recurrent fluid collection, and had a another I&D with wound debridement on 05/05/24. She has been following up at the wound care clinic. Also, has home health care that visits her multiple times per week. She also has history of asthma, diabetes mellitus, hypothyroidism, PE (not currently on anticoagulation), cerebral palsy, obesity. PCP is Dr. Melgar. Over the last couple days, patient has been reportedly more lethargic at home. Patient states that she ran out of wound care dressings and supplies at home. She removed her wound VAC. Has had a lot of drainage from her abdominal wall wound. She called EMS. While being evaluated the emergency department, she was found to be hypotensive she was fluid resuscitated with a total of 3 L crystalloid fluid bolus. Normal saline continues at 130 mL/h. Despite this, remained hypotensive, and was started on low-dose norepinephrine which is currently infusing at 0.05 mcg/kg/min. She is currently in the intensive care unit, room 266. She is lethargic, answers most of my questions appropriately. Technically oriented x 3. She denies any current complaints. Her abdominal w all wound is surrounded by macerated tissue. The wound bed itself is mostly granulation tissue. There is a cloudy pink to brown colored fluid that is foul- smelling. Appropriate cultures were taken. She is covered on broad-spectrum antibiotics in the form of Zosyn and vancomycin. Current blood pressure is reading 92/62 mmHg. Heart rate appears normal sinus on the bedside monitor with a rate of 60 bpm. She is resting comfortably on 3 L/min nasal cannula. SpO2 98%. She is currently afebrile, however, did spike of temperature of 101 F in the emergency department. Chest x-ray done arrival in the emergency department shows cardiomegaly with a left lower lobe opacity. 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 This could be atelectasis versus infectious process. Patient denies any shortness of breath, cough with sputum production, chest pain, hemoptysis. Denies sick contacts. Tested negative for COVID on arrival. CBC: WBC count 7.5, hemoglobin 9.6, hematocrit 30.6, platelets 244. She has chronic microcytic hypochromic anemia. CMP: Sodium 134, potassium 2.8, chloride 95, serum bicarb 31, BUN 22, creatinine 0.61, blood glucose 250. LFTs mildly elevated. Lactic 1.5. Urinalysis not particular remarkable for infection. Rare bacteria. She denies any urinary complaints. Prognosis is guarded. Patient was evaluated this morning on 05/30/2024. She is alert and oriented, not in acute distress. She is saturating at 96% on nasal cannula at 2L/min. Her CXR on 05/29 showed some atelectasis at left lung base. Gallbladder ultraasound on 05/28 showed prominent common bile duct, may consider further evaluation with MRCP. She is currently receiving Vancomycin/Cefepime, normal saline at 100cc /hr, and norepinephrine 0.01 mcg/kg/min. CT Abdomen and Pelvis with IV contrast ordered per surgery. Her CBC showed WBC count of 10.8, hemoglobin 8.9, platelet 257. Her CMP showed sodium 140, potassium 3.8. Procalcitonin of 0.71 on 05/28/2024. Urine culture was negative. Pending final blood culture results. Urinalysis not particular remarkable for infection. Prognosis is guarded. Objective - Vital Signs Vital signs: Vital Signs Temp 98.2 F 05/30/24 06:00 Pulse 73 05/30/24 10:00 Resp 20 05/30/24 10:00 BP 95/54 05/30/24 10:00 Pulse Ox 96 05/30/24 10:00 FiO2 Intake & Output 05/29/24 05/30/24 05/30/24 18:59 06:59 18:59 Intake Total 8453.720 6643.154 902.906 Output Total 645 1775 350 Balance 750.414 -64.846 552.906 Weight 106.9 kg 109.9 kg Intake: IV 1390 1100 800 Sodium Chloride 0.9% 1, 1000 1100 300 000 ml @ 100 mls/hr IV . Q10H [facility] Rx#:[id number] Sodium Chloride 0.9% 1, 390 000 ml @ 130 mls/hr IV . Q7H42M [facility] Rx#:[id number] Vancomycin 1,750 mg In 500 Sodium Chloride 0.9% 500 ml 500 ml @ 167 mls/hr IVPB Q12H [facility] Rx#: [id number] Intake, IV Titration 5.414 610.154 102.906 Amount Cefepime 2 gm In Sodium 100 100 Chloride 0.9% 100 ml @ 25 mls/hr IVPB Q8HR [facility] Rx# :[id number] Norepinephrine 32 mg In 5.414 3.608 Sodium Chloride 0.9% 218 ml @ 0.03 MCG/KG/MIN 1. 442 mls/hr IV .Q24H [facility] Rx#:[id number] Norepinephrine 32 mg In 6.546 2.906 Sodium Chloride 0.9% 218 ml @ 0.03 MCG/KG/MIN 1. 503 mls/hr IV .Q24H [facility] Rx#:[id number] Vancomycin 1,750 mg In 500 Sodium Chloride 0.9% 500 ml 500 ml @ 167 mls/hr IVPB Q12H [facility] Rx#: [id number] Output: Urine 645 1775 350 Other: Voiding Method Indwelling Catheter Indwelling Catheter Indwelling Catheter # Bowel Movements 0 - Exam General: Alert and oriented, not in acute distress Cardiovascular: Regular heart rate, no murmurs Respiratory: Clear to auscultation bilaterally, no wheezing/rhonchi/stridor Abdominal: Obese abdomen. Large midline abdominal wound, mostly with granulation tissue. No guarding. No abdominal distention. - Labs CBC & Chem 7: 05/30/24 05:29 05/30/24 05:29 Labs: Abnormal Lab Results - Last 24 Hours (Table) 05/29/24 05/29/24 05/29/24 Range/Units 11:16 16:46 20:32 WBC (3.8-10.6) k/uL Hgb (11.4-16.0) gm/dL Hct (34.0-46.0) % MCV (80.0-100.0) fL MCH (25.0-35.0) pg MCHC (31.0-37.0) g/dL RDW (11.5-15.5) % Neutrophils # (1.3-7.7) k/uL Glucose (74-99) mg/dL POC Glucose (mg/dL) 282 H 280 H 190 H (70-110) mg/dL 05/30/24 05/30/24 05/30/24 Range/Units 03:56 05:29 05:29 WBC 10.8 H (3.8-10.6) k/uL Hgb 8.9 L (11.4-16.0) gm/dL Hct 29.1 L (34.0-46.0) % MCV 72.7 L (80.0-100.0) fL MCH 22.2 L (25.0-35.0) pg MCHC 30.6 L (31.0-37.0) g/dL RDW 16.6 H (11.5-15.5) % Neutrophils # 7.8 H (1.3-7.7) k/uL Glucose 135 H (74-99) mg/dL POC Glucose (mg/dL) 143 H (70-110) mg/dL 05/30/24 Range/Units 06:02 WBC (3.8-10.6) k/uL Hgb (11.4-16.0) gm/dL Hct (34.0-46.0) % MCV (80.0-100.0) fL MCH (25.0-35.0) pg MCHC (31.0-37.0) g/dL RDW (11.5-15.5) % Neutrophils # (1.3-7.7) k/uL Glucose (74-99) mg/dL POC Glucose (mg/dL) 146 H (70-110) mg/dL Microbiology - Last 24 Hours (Table) 05/28/24 00:32 Gram Stain - Preliminary Abdomen Wound Culture - Preliminary Strep A 05/28/24 13:00 Urine Culture - Final Urine,Voided 05/28/24 16:41 Blood Culture - Preliminary Blood Assessment and Plan Assessment: Hypotension, refractory to fluid resuscitation, currently on vasopressors in the form of norepinephrine which is infusing at 0.01 mcg/kg/min. Consider sepsis and septic shock Acute febrile illness Abdominal wall wound History of ventral abdominal hernia repair at outside facility, subsequently developed seroma, Underwent I&D by Dr. Jasso 02/05/2024. She ended up with a wound VAC. Had recurrent fluid collection, and had a another I&D with wound debridement on 05/05/24. She has been following up at the wound care clinic. Acute hypoxemic respiratory failure, currently on 2 L/min nasal cannula, chest x-ray shows stable cardiomegaly with possible mild pulmonary vascular congestion. Nt-BNP low. There is a left lower lobe opacity, which is chronic. Patient has an elevated left hemidiaphragm. Suspect atelectasis. Microcytic hypochromic anemia Mildly elevated LFTs, unknown significance Hypokalemia, being replaced per protocol Diabetes mellitus type 2, with hyperglycemia History of hypothyroidism History of pulmonary embolism, not currently on anticoagulation. Previous maintained on Eliquis for 3 to 6 months. A follow-up chest CTA negative for PE. Eliquis stopped. History of mild intermittent asthma, stable Obesity, with a BMI of 38.8 kg/m History of depression Plan: Patient admitted to intensive care unit. Patient is on norepinephrine at 0.01 mcg/kg/min General Surgery asked to see this patient in regards to abdominal wall wound Wound care also consulted Continue broad-spectrum antibiotic coverage which is currently in the form of Zosyn and Cefepime Appropriate cultures are pending Replace electrolytes per protocol Sliding scale insulin coverage GI prophylaxis: Protonix DVT prophylaxis: Heparin subcu Will continue to follow patient while in intensive care unit. I have personally seen and examined the patient, performed the documentation and the assessment and plan as written. Number of minutes spent on the visit:20 Time with Patient: Greater than 30
--- NOTE | 2024-05-30 11:50 | P.PN ---
Subjective Progress Note Date: 05/30/24 Hospital course: Patient is a 58-year-old female with a type 2 diabetes, asthma, presented to the ED with fever and abdominal pain. Patient states she has a history of recurrent abdominal problems. She had previous hernia repair from outside facility which was complicated with an infected abdominal wall seroma. She underwent incision, drainage, and debridement by Dr. Jasso on 02/05/2024. Subsequently, she had recurrent fluid collection which was followed by another incision, drainage, and debridement on 05/05/2024. Patient regularly seen wound care for drainage and dressing changes. Patient had a wound VAC, but she removed the yesterday. She said she removed the wound VAC because she was out of supplies to change it. Reported a lot of drainage from her wound which prompted her to the call EMS. While in the ED patient was hypotensive. Was given 3L NS with no improvement. Central line was placed and she was transferred to ICU for further assessment. Pulmonology was consulted. ID consulted. General surgery consulted. Wound care consulted. Patient on Levophed for blood pressure support, Zosyn and Vanco for empiric antibiotic coverage. Subjective: Patient seen and examined at bedside. Patient is not complaining of shortness of breath, chest pain, abdominal pain. Voiding well on Howard. All Systems reviewed and pertinent positives and negatives noted in HPI, all other symptoms are negative Objective: Vital signs reviewed. Physical examination: Vitals: T 101F, MD 109, RR 20, BP 110/64, O2 sat 100% on 3 L nasal cannula General: no distress, appears at stated age, obese Derm: no unusual rashes/lesions, warm Head: atraumatic, normocephalic, symmetric Eyes: EOMI, anicteric sclera, pupils equal round reactive to light ENT: Nose and ears atraumatic Mouth: no lip lesion, mucus membranes moist Cardiovascular: S1S2 reg, no murmur, positive dorsalis pedis pulse bilateral, no edema Lungs: CTA bilateral, no rhonchi, no rales, no accessory muscle use Abdominal: soft, tender to palpation, ~10 cm ulceration lower left abdomen , erythema or drainage, no wound vac Ext: muscle strength 5 out of 5 in all 4 extremities grossly, no gross muscle atrophy Neuro: CN II-XI grossly intact, no gross focal neuro deficits Psych: lethargic arousable, oriented to person, place, and time Data reviewed: Labs: WBC 10.8, hemoglobin 8.9, hematocrit 29.1, MCV 72.7, sodium 140, potassium 3.8, BUN 40, creatinine 0.76, glucose 135 No new imaging Assessment/Plan: Patient is a 58-year-old female with a type 2 diabetes, asthma, presented to the ED with fever and abdominal pain. Patient admitted for evaluation of septic shock. #Septic shock, likely abdominal source vs less likely pulmonary #Unhealing abdominal ulceration Zosyn discontinued c/w cefepime IVPB every 8 hours Continue with vancomycin dosed by pharmacy IVPB every 12 hours Monitor for renal toxicity Normal saline at 100 cc/hr Wound culture positive for group A strep pyogenes and stain positive for moderate gram-positive cocci in chains and rare gram-negative Blood culture is negative Urine culture is negative Cardiac monitoring Howard catheter in place Monitor for fever Follow-up CBC Continue with Wound care; wound care consulted Surgery consult; no plans for surgical intervention ID consulted Patient admitted to ICU for persistent hypotension Currently on Levophed 32 Mg IV 0.01 mcg/kg/min by ICU #Small left-sided pulmonary effusion #Suspected pneumonia Legionella antigen ordered Procalcitonin ordered, is 0.71 Sputum culture ordered; pending Continue with IV antibiotics as stated above Pulmonology consulted #Metabolic alkalosis, resolved Given normal saline #Type 2 diabetes #Hyperglycemia Glucose 165 Hold oral diabetic medication Insulin SQ sliding scale and levemir 10 units sq hs Accu-Chek Hypoglycemic protocol #Anxiety 1 mg IV ativan every 6 hours are as needed #Hypokalemia, resolved K 2.8 improved to K 4.2 replaced in the ED Monitor with follow-up BMP #Microcytic anemia Hgb 8.9, MCV 69.7 baseline is 9.5 Denies active bleeding Has history of iron deficiency anemia Start oral iron replacement upon stabilization of infection F: NS at 100 cc/hr E: Replete electrolytes as needed N: Regular diet A: Ambulatory DVT prophylaxis: Heparin SQ 5000 unit q8hrs, SCD CODE STATUS: Full code I saw and evaluated the patient during the sawyer and critical portions of this encounter, and discussed the case in detail with the resident author of this note, I agree with the Assessment and Plan, and my changes, if any, are highlighted in blue. Objective - Vital Signs Vital signs: Vital Signs Temp 98.2 F 05/30/24 06:00 Pulse 75 05/30/24 11:00 Resp 20 05/30/24 11:00 BP 100/80 05/30/24 11:00 Pulse Ox 99 05/30/24 11:00 FiO2 Intake & Output 05/29/24 05/30/24 05/30/24 18:59 06:59 18:59 Intake Total 2438.289 5668.154 1102.906 Output Total 645 1775 550 Balance 750.414 -64.846 552.906 Weight 106.9 kg 109.9 kg Intake: IV 1390 1100 1000 Sodium Chloride 0.9% 1, 1000 1100 500 000 ml @ 100 mls/hr IV . Q10H [facility] Rx#:[id number] Sodium Chloride 0.9% 1, 390 000 ml @ 130 mls/hr IV . Q7H42M [facility] Rx#:[id number] Vancomycin 1,750 mg In 500 Sodium Chloride 0.9% 500 ml 500 ml @ 167 mls/hr IVPB Q12H [facility] Rx#: [id number] Intake, IV Titration 5.414 610.154 102.906 Amount Cefepime 2 gm In Sodium 100 100 Chloride 0.9% 100 ml @ 25 mls/hr IVPB Q8HR [facility] Rx# :[id number] Norepinephrine 32 mg In 5.414 3.608 Sodium Chloride 0.9% 218 ml @ 0.03 MCG/KG/MIN 1. 442 mls/hr IV .Q24H [facility] Rx#:[id number] Norepinephrine 32 mg In 6.546 2.906 Sodium Chloride 0.9% 218 ml @ 0.03 MCG/KG/MIN 1. 503 mls/hr IV .Q24H [facility] Rx#:[id number] Vancomycin 1,750 mg In 500 Sodium Chloride 0.9% 500 ml 500 ml @ 167 mls/hr IVPB Q12H [facility] Rx#: [id number] Output: Urine 645 1775 550 Other: Voiding Method Indwelling Catheter Indwelling Catheter Indwelling Catheter # Bowel Movements 0 - Labs CBC & Chem 7: 05/30/24 05:29 05/30/24 05:29 Labs: Abnormal Lab Results - Last 24 Hours (Table) 05/29/24 05/29/24 05/30/24 Range/Units 16:46 20:32 03:56 WBC (3.8-10.6) k/uL Hgb (11.4-16.0) gm/dL Hct (34.0-46.0) % MCV (80.0-100.0) fL MCH (25.0-35.0) pg MCHC (31.0-37.0) g/dL RDW (11.5-15.5) % Neutrophils # (1.3-7.7) k/uL Glucose (74-99) mg/dL POC Glucose (mg/dL) 280 H 190 H 143 H (70-110) mg/dL 05/30/24 05/30/24 05/30/24 Range/Units 05:29 05:29 06:02 WBC 10.8 H (3.8-10.6) k/uL Hgb 8.9 L (11.4-16.0) gm/dL Hct 29.1 L (34.0-46.0) % MCV 72.7 L (80.0-100.0) fL MCH 22.2 L (25.0-35.0) pg MCHC 30.6 L (31.0-37.0) g/dL RDW 16.6 H (11.5-15.5) % Neutrophils # 7.8 H (1.3-7.7) k/uL Glucose 135 H (74-99) mg/dL POC Glucose (mg/dL) 146 H (70-110) mg/dL 05/30/24 Range/Units 11:22 WBC (3.8-10.6) k/uL Hgb (11.4-16.0) gm/dL Hct (34.0-46.0) % MCV (80.0-100.0) fL MCH (25.0-35.0) pg MCHC (31.0-37.0) g/dL RDW (11.5-15.5) % Neutrophils # (1.3-7.7) k/uL Glucose (74-99) mg/dL POC Glucose (mg/dL) 161 H (70-110) mg/dL Microbiology - Last 24 Hours (Table) 05/28/24 00:32 Gram Stain - Preliminary Abdomen Wound Culture - Preliminary Strep A 05/28/24 13:00 Urine Culture - Final Urine,Voided 05/28/24 16:41 Blood Culture - Preliminary Blood
[2024-05-30] MEDS: IPRATROPIUM-ALBUTEROL 3 ML NEB INHALATION PRN (13:10)
--- NOTE | 2024-05-30 13:22 | CT ---
EXAMINATION TYPE: CT abdomen pelvis w con DATE OF EXAM: 05/30/2024 COMPARISON: 04/08/2024 HISTORY: 58-year-old female abdominal wound with drainage TECHNIQUE: Contiguous axial scanning of the abdomen and pelvis following administration of 100 ml Iso bhavin 300 IV contrast. Delayed images through the kidneys and coronal/sagittal reconstructions perform ed. CT DLP: 2129 mGycm Automated exposure control for dose reduction was used. FINDINGS: Generalized anasarca changes. Heart upper limits of normal in size. Possible circumferentia l wall thickening distal esophagus versus motion artifact. Asymmetric elevation left hemidiaphragm. Trace bilateral pleural effusions. Prominent left basilar opacity which appears increased from 024. No focal liver lesion or biliary ductal dilatation. Portal venous system is patent. Periportal edema noted. Gallbladder is collapsed below with edematous wall thickening probably due to third spacing. Adrenal glands, kidneys within normal limits. Some hazy density is present around the pancreas. Findings may be on the basis of anasarca and patien t motion artifacts. No dilated small bowel or free air. Mild pelvic ascites is present. Mild overall stool burden. Mildly redundant sigmoid colon. No pericolonic inflammatory change seen. Assessment limited due to prominent motion artifact. No mesenteric or retroperitoneal adenopathy seen. There is a large infraumbilical midline by 8.5 cm extending down to the abdominal wall musc ulature. Bladder is collapsed with Howard catheter in place. Uterus anteverted. Small bilateral ovaries. Mild p elvic ascites. Small pelvic fluid ligaments. No pelvic adenopathy. Bones: Mild degenerative change of the hips. Moderate to severe degenerative disc disease L5-S1. Face t arthropathy lower lumbar spine. Anterior plate spondylosis lower thoracic spine. IMPRESSION: 1. GENERALIZED ANASARCA CHANGE WITH TRACE PLEURAL EFFUSIONS AND MILD PELVIC ASCITES. CORRELATE FOR TH IRD SPACING. EDEMATOUS GALLBLADDER WALL THICKENING PROBABLY ALSO RELATES TO THE THIRD SPACING. 2. EXTENSIVE OPACITY AT THE LEFT LUNG BASE PROBABLY COMBINATION OF ATELECTASIS AND CONSOLIDATION, INC REASED FROM 04/08/2024. CORRELATE FOR ANY SYMPTOMS OF PNEUMONIA. SIMILAR ASYMMETRIC ELEVATION LEFT HEM IDIAPHRAGM. IF CONCERN FOR HEMIDIAPHRAGMATIC PARALYSIS, A FLUOROSCOPIC SNIFF TEST COULD BE PERFORMED. 3. APPEARANCE OF CIRCUMFERENTIAL WALL THICKENING DISTAL ESOPHAGUS MAY REFLECT ESOPHAGITIS. 4. HAZY DENSITY SURROUNDING THE PANCREAS MAY BE DUE TO MOTION ARTIFACT. CORRELATE WITH AMYLASE LIPASE TO EXCLUDE ACUTE INTERSTITIAL PANCREATITIS. 5. VENTRAL ABDOMINAL WALL MIDLINE INFRAUMBILICAL WOUND GAPING OPEN BY 8.5 CM WIDE. NO DISCRETE ABSCES S. EXTENDS DOWN TO THE ABDOMINAL WALL MUSCULATURE. [facility], , 05/30/2024 1:19 PM
--- NOTE | 2024-05-30 14:45 | P.PN ---
Subjective Progress Note Date: 05/30/24 Principal diagnosis: Reason for follow-up is sepsis and abdominal wound infection Patient is a 58-year-old female with a past medical history nephric and for diabetes mellitus osteoarthritis PE hypothyroidism in this patient who did have a ventral hernia repair complicated by development of a seroma that has been drained on multiple occasion now presenting with sepsis increasing drainage from abdominal wound concerning for wound infection. On today's evaluation that is 05/30/2024, the patient continues to be afebrile, the patient is on 2 L nasal current oxygen and breathing comfortably, the Pt denies having any chest pain or cough, the patient denies having any abdominal pain no vomiting or any diarrhea has been reported. Patient white count is is 10.8, creatinine 0.76 abdominal culture with strep today Objective - Vital Signs Vital signs: Vital Signs Temp 98.2 F 05/30/24 06:00 Pulse 75 05/30/24 11:00 Resp 20 05/30/24 11:00 BP 100/80 05/30/24 11:00 Pulse Ox 99 05/30/24 11:00 FiO2 Intake & Output 05/29/24 05/30/24 05/30/24 18:59 06:59 18:59 Intake Total 3155.166 0661.154 1102.906 Output Total 645 1775 900 Balance 750.414 -64.846 202.906 Weight 106.9 kg 109.9 kg Intake: IV 1390 1100 1000 Sodium Chloride 0.9% 1, 1000 1100 500 000 ml @ 100 mls/hr IV . Q10H [facility] Rx#:[id number] Sodium Chloride 0.9% 1, 390 000 ml @ 130 mls/hr IV . Q7H42M [facility] Rx#:[id number] Vancomycin 1,750 mg In 500 Sodium Chloride 0.9% 500 ml 500 ml @ 167 mls/hr IVPB Q12H [facility] Rx#: [id number] Intake, IV Titration 5.414 610.154 102.906 Amount Cefepime 2 gm In Sodium 100 100 Chloride 0.9% 100 ml @ 25 mls/hr IVPB Q8HR [facility] Rx# :[id number] Norepinephrine 32 mg In 5.414 3.608 Sodium Chloride 0.9% 218 ml @ 0.03 MCG/KG/MIN 1. 442 mls/hr IV .Q24H [facility] Rx#:[id number] Norepinephrine 32 mg In 6.546 2.906 Sodium Chloride 0.9% 218 ml @ 0.03 MCG/KG/MIN 1. 503 mls/hr IV .Q24H [facility] Rx#:[id number] Vancomycin 1,750 mg In 500 Sodium Chloride 0.9% 500 ml 500 ml @ 167 mls/hr IVPB Q12H [facility] Rx#: [id number] Output: Urine 645 3395 900 Other: Voiding Method Indwelling Catheter Indwelling Catheter Indwelling Catheter # Bowel Movements 0 - Exam GENERAL DESCRIPTION: Middle-age female lying in bed in no distress RESPIRATORY SYSTEM: Unlabored breathing , decreased breath sounds at bases HEART: S1 S2 regular rate and rhythm , ABDOMEN: Soft , no tenderness EXTREMITIES: No edema feet - Labs CBC & Chem 7: 05/30/24 05:29 05/30/24 05:29 Labs: Abnormal Lab Results - Last 24 Hours (Table) 05/29/24 05/29/24 05/30/24 Range/Units 16:46 20:32 03:56 WBC (3.8-10.6) k/uL Hgb (11.4-16.0) gm/dL Hct (34.0-46.0) % MCV (80.0-100.0) fL MCH (25.0-35.0) pg MCHC (31.0-37.0) g/dL RDW (11.5-15.5) % Neutrophils # (1.3-7.7) k/uL Glucose (74-99) mg/dL POC Glucose (mg/dL) 280 H 190 H 143 H (70-110) mg/dL 05/30/24 05/30/24 05/30/24 Range/Units 05:29 05:29 06:02 WBC 10.8 H (3.8-10.6) k/uL Hgb 8.9 L (11.4-16.0) gm/dL Hct 29.1 L (34.0-46.0) % MCV 72.7 L (80.0-100.0) fL MCH 22.2 L (25.0-35.0) pg MCHC 30.6 L (31.0-37.0) g/dL RDW 16.6 H (11.5-15.5) % Neutrophils # 7.8 H (1.3-7.7) k/uL Glucose 135 H (74-99) mg/dL POC Glucose (mg/dL) 146 H (70-110) mg/dL 05/30/24 Range/Units 11:22 WBC (3.8-10.6) k/uL Hgb (11.4-16.0) gm/dL Hct (34.0-46.0) % MCV (80.0-100.0) fL MCH (25.0-35.0) pg MCHC (31.0-37.0) g/dL RDW (11.5-15.5) % Neutrophils # (1.3-7.7) k/uL Glucose (74-99) mg/dL POC Glucose (mg/dL) 161 H (70-110) mg/dL Microbiology - Last 24 Hours (Table) 05/28/24 00:32 Gram Stain - Preliminary Abdomen Wound Culture - Preliminary Strep A 05/28/24 13:00 Urine Culture - Final Urine,Voided 05/28/24 16:41 Blood Culture - Preliminary Blood Assessment and Plan (1) Septic shock Current Visit: Yes Status: Acute Code(s): A41.9 - SEPSIS, UNSPECIFIED ORGANISM; R65.21 - SEVERE SEPSIS WITH SEPTIC SHOCK SNOMED Code(s): 90501017 (2) Open abdominal wall wound Current Visit: Yes Status: Acute Code(s): S31.109A - UNSP OPN WND ABD WALL, UNSP Q W/O PENET PERIT CAV, INIT SNOMED Code(s): 554395476 (3) Abdominal wall cellulitis Current Visit: No Status: Acute Code(s): L03.311 - CELLULITIS OF ABDOMINAL WALL SNOMED Code(s): 51485492 Plan: 1patient with sepsis in this patient who did have a fever hypotension tachycardia meeting criteria for SIRS source likely abdominal as currently no other obvious focus of infection chest x-ray no pneumonia urine has been n egative patient did have complicated abdominal history with development of seroma post ventral hernia repair and now being admitted to hospital with increasing drainage with some surrounding skin excoriation. [address] abdominal pelvis to rule out any intra-abdominal collection which has been ordered by surgical team this morning results will be followed 3-blood cultures are pending and local culture growing group A strep 4-patient to continue with approximately biting a form of cefepime vancomycin while waiting for the workup to be completed Dictation was produced using [employer] dictation software. please excuse any grammatical, word or spelling errors. Time with Patient: Less than 30
[2024-05-30 16:25] LABS: Glucose,Whole Blood 175 mg/dL (70-110)
[2024-05-30 19:37] LABS: Glucose,Whole Blood 174 mg/dL (70-110)
[2024-05-31 05:13] LABS: Anisocytosis Slight; HCT 27.7 % (34.0-46.0); HGB 8.3 gm/dL (11.4-16.0); Hypochromasia Marked; MCH 21.7 pg (25.0-35.0); MCV 72.4 fL (80.0-100.0); Microcytosis Moderate; Platelet Count 232 k/uL (150-450); RBC 3.83 m/uL (3.80-5.40); RDW 16.6 % (11.5-15.5); WBC 7.3 k/uL (3.8-10.6)
[2024-05-31 05:14] LABS: African American GFR (CKD) >90 (>60 ml/min/1.73 sqM); Anion Gap 3 mmol/L; Blood Urea Nitrogen 19 mg/dL (7-17); Calcium 8.6 mg/dL (8.4-10.2); Carbon Dioxide 30 mmol/L (22-30); Chloride 104 mmol/L (98-107); Glucose 118 mg/dL (74-99); Magnesium 1.9 mg/dL (1.6-2.3); Non-African American GFR(CKD) >90 (>60 ml/min/1.73 sqM); Potassium 4.3 mmol/L (3.5-5.1); Sodium 137 mmol/L (137-145)
[2024-05-31] MEDS: MAGNESIUM SULFATE-D5W PMX 1 GM in DEXTROSE/WATER 1 100ML.BAG IVPB ONE (05:30)
[2024-05-31 05:52] LABS: Band Neutrophils % 1 %; Eosinophils # (M) 0.51 k/uL (0-0.7); Metamyelocytes # (M) 0.15 k/uL (0); Metamyelocytes % 2 %; Monocytes # (M) 0.15 k/uL (0-1.0); Myelocytes # (M) 0.07 k/uL (0); Myelocytes % 1 %; Neutrophils % (M) 62 %; Nucleated Red Blood Cells 0 /100 WBC (0-0); Total Cells Counted 200
[2024-05-31 06:30] LABS: Glucose,Whole Blood 145 mg/dL (70-110)
[2024-05-31] MEDS: VANCOMYCIN TROUGH DUE 1 EACH MISC MISCELLANE ONE (06:30)
[2024-05-31] MEDS: SODIUM CHLORIDE 0.9% 1,000 ML IV SCH (09:18)
--- NOTE | 2024-05-31 09:38 | P.PN ---
Subjective Progress Note Date: 05/31/24 Patient is a 58-year-old white female with past medical history significant for hernia repair at outside facility. Developed subsequent abdominal wall seroma, which was thought to be infected. Underwent I&D by Dr. Jasso 02/05/2024. She ended up with a wound VAC. Had recurrent fluid collection, and had a another I&D with wound debridement on 05/05/24. She has been following up at the wound care clinic. Also, has home health care that visits her multiple times per week. She also has history of asthma, diabetes mellitus, hypothyroidism, PE (not currently on anticoagulation), cerebral palsy, obesity. PCP is Dr. Melgar. Over the last couple days, patient has been reportedly more lethargic at home. Patient states that she ran out of wound care dressings and supplies at home. She removed her wound VAC. Has had a lot of drainage from her abdominal wall wound. She called EMS. While being evaluated the emergency department, she was found to be hypotensive she was fluid resuscitated with a total of 3 L crystalloid fluid bolus. Normal saline continues at 130 mL/h. Despite this, remained hypotensive, and was started on low-dose norepinephrine which is currently infusing at 0.05 mcg/kg/min. She is currently in the intensive care unit, room 266. She is lethargic, answers most of my questions appropriately. Technically oriented x 3. She denies any current complaints. Her abdominal w all wound is surrounded by macerated tissue. The wound bed itself is mostly granulation tissue. There is a cloudy pink to brown colored fluid that is foul- smelling. Appropriate cultures were taken. She is covered on broad-spectrum antibiotics in the form of Zosyn and vancomycin. Current blood pressure is reading 92/62 mmHg. Heart rate appears normal sinus on the bedside monitor with a rate of 60 bpm. She is resting comfortably on 3 L/min nasal cannula. SpO2 98%. She is currently afebrile, however, did spike of temperature of 101 F in the emergency department. Chest x-ray done arrival in the emergency department shows cardiomegaly with a left lower lobe opacity. 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 This could be atelectasis versus infectious process. Patient denies any shortness of breath, cough with sputum production, chest pain, hemoptysis. Denies sick contacts. Tested negative for COVID on arrival. CBC: WBC count 7.5, hemoglobin 9.6, hematocrit 30.6, platelets 244. She has chronic microcytic hypochromic anemia. CMP: Sodium 134, potassium 2.8, chloride 95, serum bicarb 31, BUN 22, creatinine 0.61, blood glucose 250. LFTs mildly elevated. Lactic 1.5. Urinalysis not particular remarkable for infection. Rare bacteria. She denies any urinary complaints. Prognosis is guarded. Patient was evaluated this morning on 05/30/2024. She is alert and oriented, not in acute distress. She is saturating at 96% on nasal cannula at 2L/min. Her CXR on 05/29 showed some atelectasis at left lung base. Gallbladder ultraasound on 05/28 showed prominent common bile duct, may consider further evaluation with MRCP. She is currently receiving Vancomycin/Cefepime, normal saline at 100cc /hr, and norepinephrine 0.01 mcg/kg/min. CT Abdomen and Pelvis with IV contrast ordered per surgery. Her CBC showed WBC count of 10.8, hemoglobin 8.9, platelet 257. Her CMP showed sodium 140, potassium 3.8. Procalcitonin of 0.71 on 05/28/2024. Urine culture was negative. Pending final blood culture results. Urinalysis not particular remarkable for infection. Prognosis is guarded. Patient was evaluated this morning on 05/31/2024. She is alert and oriented, not in acute distress. She is currently saturating at 96% on nasal cannula at 2L/min. Her CT Abdomin/Pelvis done on 05/30 showed generalized anasarca change, correlate for third spacing. Edematous gallbladder wall thickening, extensive opacity at left lower base of the lung, signs of esophagitis, and hazy density surrounding pancreas were also shown on the CT. She is currently receiving Vancomycin and Cefepime which covers the positive Strep A growth in the wound culture. She is also receiving normal saline at 100 cc/hr. We will decrease the NS infusion rate to 50 cc/hr. Norepinephrine has been discontinued. Patient has stable blood pressure. Her CBC showed WBC count of 7.3, hemoglobin 8.3, platelet 232. Her CMP showed sodium 137, potassium 4.3, BUN 19, creatinine 0.57. Procalcitonin of 0.71 on 05/28/2024. Urine culture was negative. Pending final blood culture results. Urinalysis not particular remarkable for infection. Patient is stable enough to be transferred to the general medical floor. Objective - Vital Signs Vital signs: Vital Signs Temp 98.1 F 05/31/24 08:00 Pulse 79 05/31/24 09:15 Resp 28 H 05/31/24 09:00 BP 108/58 05/31/24 09:00 Pulse Ox 100 05/31/24 09:00 FiO2 Intake & Output 05/30/24 05/31/24 05/31/24 18:59 06:59 18:59 Intake Total 1230.494 6991 1350 Output Total 2100 2630 700 Balance -297.052 -730 650 Intake: IV 1700 1900 750 Cefepime 2 gm In Sodium 100 100 100 Chloride 0.9% 100 ml @ 25 mls/hr IVPB Q8HR [facility] Rx# :[id number] Sodium Chloride 0.9% 1, 1100 1300 100 000 ml @ 100 mls/hr IV . Q10H [facility] Rx#:[id number] Sodium Chloride 0.9% 1, 50 000 ml @ 50 mls/hr IV . Q20H [facility] Rx#:[id number] Vancomycin 1,750 mg In 500 500 500 Sodium Chloride 0.9% 500 ml 500 ml @ 167 mls/hr IVPB Q12H [facility] Rx#: [id number] Intake, IV Titration 102.948 Amount Cefepime 2 gm In Sodium 100 Chloride 0.9% 100 ml @ 25 mls/hr IVPB Q8HR [facility] Rx# :[id number] Norepinephrine 32 mg In 2.948 Sodium Chloride 0.9% 218 ml @ 0.03 MCG/KG/MIN 1. 503 mls/hr IV .Q24H [facility] Rx#:[id number] Oral 600 Output: Urine 2100 2630 700 Other: Voiding Method Indwelling Catheter Indwelling Catheter Indwelling Catheter # Bowel Movements 1 - Exam General: Alert and oriented to time, place, and person, not in acute distress Cardiovascular: Regular heart rate, no murmurs Respiratory: Clear to auscultation bilaterally, no wheezing/rhonchi/stridor Abdominal: Obese abdomen. Large midline abdominal wound, mostly with granulation tissue. Soft, nontender to palpation, nondistended. Extremity: No LE edema - Labs CBC & Chem 7: 05/31/24 04:13 05/31/24 04:13 Labs: Abnormal Lab Results - Last 24 Hours (Table) 05/30/24 05/30/24 05/30/24 Range/Units 11:22 16:23 19:35 Hgb (11.4-16.0) gm/dL Hct (34.0-46.0) % MCV (80.0-100.0) fL MCH (25.0-35.0) pg MCHC (31.0-37.0) g/dL RDW (11.5-15.5) % Metamyelocytes # (Man) (0) k/uL Myelocytes # (Manual) (0) k/uL BUN (7-17) mg/dL Glucose (74-99) mg/dL POC Glucose (mg/dL) 161 H 175 H 174 H (70-110) mg/dL 05/31/24 05/31/24 05/31/24 Range/Units 04:13 04:13 06:28 Hgb 8.3 L (11.4-16.0) gm/dL Hct 27.7 L (34.0-46.0) % MCV 72.4 L (80.0-100.0) fL MCH 21.7 L (25.0-35.0) pg MCHC 30.0 L (31.0-37.0) g/dL RDW 16.6 H (11.5-15.5) % Metamyelocytes # (Man) 0.15 H (0) k/uL Myelocytes # (Manual) 0.07 H (0) k/uL BUN 19 H (7-17) mg/dL Glucose 118 H (74-99) mg/dL POC Glucose (mg/dL) 145 H (70-110) mg/dL Microbiology - Last 24 Hours (Table) 05/28/24 16:41 Blood Culture - Preliminary Blood 05/28/24 00:32 Gram Stain - Preliminary Abdomen Wound Culture - Preliminary Strep A 05/28/24 13:00 Urine Culture - Final Urine,Voided Assessment and Plan Assessment: Hypotension, refractory to fluid resuscitation, currently on vasopressors in the form of norepinephrine which is infusing at 0.01 mcg/kg/min. Consider sepsis and septic shock Acute febrile illness Abdominal wall wound History of ventral abdominal hernia repair at outside facility, subsequently developed seroma, Underwent I&D by Dr. Jasso 02/05/2024. She ended up with a wound VAC. Had recurrent fluid collection, and had a another I&D with wound debridement on 05/05/24. She has been following up at the wound care clinic. Acute hypoxemic respiratory failure, currently on 2 L/min nasal cannula, chest x-ray shows stable cardiomegaly with possible mild pulmonary vascular congestion. Nt-BNP low. There is a left lower lobe opacity, which is chronic. Patient has an elevated left hemidiaphragm. Suspect atelectasis. Microcytic hypochromic anemia Mildly elevated LFTs, unknown significance Hypokalemia, being replaced per protocol Diabetes mellitus type 2, with hyperglycemia History of hypothyroidism History of pulmonary embolism, not currently on anticoagulation. Previous maintained on Eliquis for 3 to 6 months. A follow-up chest CTA negative for PE. Eliquis stopped. History of mild intermittent asthma, stable Obesity, with a BMI of 38.8 kg/m History of depression Plan: Norepinephrine has been discontinued. Patient's BP stable. Patient is stable enough to be transferred to the general medical floor. General Surgery asked to see this patient in regards to abdominal wall wound Wound care also consulted Continue broad-spectrum antibiotic coverage which is currently in the form of Vancomycin and Cefepime Wound culture showed positive Strep A growth Replace electrolytes per protocol Sliding scale insulin coverage GI prophylaxis: Protonix DVT prophylaxis: Heparin subcu Time with Patient: Less than 30
[2024-05-31 11:48] LABS: Glucose,Whole Blood 213 mg/dL (70-110)
--- NOTE | 2024-05-31 12:53 | P.PN ---
Subjective Progress Note Date: 05/31/24 Hospital course: Patient is a 58-year-old female with a type 2 diabetes, asthma, presented to the ED with fever and abdominal pain. Patient states she has a history of recurrent abdominal problems. She had previous hernia repair from outside facility which was complicated with an infected abdominal wall seroma. She underwent incision, drainage, and debridement by Dr. Jasso on 02/05/2024. Subsequently, she had recurrent fluid collection which was followed by another incision, drainage, and debridement on 05/05/2024. Patient regularly seen wound care for drainage and dressing changes. Patient had a wound VAC, but she removed the yesterday. She said she removed the wound VAC because she was out of supplies to change it. Reported a lot of drainage from her wound which prompted her to the call EMS. While in the ED patient was hypotensive. Was given 3L NS with no improvement. Central line was placed and she was transferred to ICU for further assessment. Pulmonology was consulted. ID consulted. General surgery consulted. Wound care consulted. Patient on Levophed for blood pressure support, Zosyn and Vanco for empiric antibiotic coverage. Patient is off levophed. Patient transferred to regular medical floor. Subjective: Patient seen and examined at bedside. Patient is not complaining of shortness of breath, chest pain, abdominal pain. Voiding well, has Howard. All Systems reviewed and pertinent positives and negatives noted in HPI, all other symptoms are negative Objective: Vital signs reviewed. Physical examination: Vitals: T 101F, TN 109, RR 20, BP 110/64, O2 sat 100% on 3 L nasal cannula General: no distress, appears at stated age, obese Derm: no unusual rashes/lesions, warm Head: atraumatic, normocephalic, symmetric Eyes: EOMI, anicteric sclera, pupils equal round reactive to light ENT: Nose and ears atraumatic Mouth: no lip lesion, mucus membranes moist Cardiovascular: S1S2 reg, no murmur, positive dorsalis pedis pulse bilateral, no edema Lungs: CTA bilateral, no rhonchi, no rales, no accessory muscle use Abdominal: soft, tender to palpation, ~10 cm ulceration lower left abdomen , erythema or drainage, no wound vac Ext: muscle strength 5 out of 5 in all 4 extremities grossly, no gross muscle atrophy Neuro: CN II-XI grossly intact, no gross focal neuro deficits Psych: lethargic arousable, oriented to person, place, and time Data reviewed: Labs during hospitalization: WBC 7.3, hemoglobin 8.3, sodium 137, potassium 4.3, BUN 19, creatinine 0.57, magnesium 1.9, procalcitonin 0.3 Wound culture positive for group A strep pyogenes and stain positive for moderate gram-positive cocci in chains and rare gram-negative Urine culture is negative Hgb 8.3, MCV 69.7 baseline is 9.5 Images during hospitalization: No new imaging Assessment/Plan: Patient is a 58-year-old female with a type 2 diabetes, asthma, presented to the ED with fever and abdominal pain. Patient admitted for evaluation of septic shock. #Septic shock, likely abdominal source vs less likely pulmonary #Unhealing abdominal ulceration Blood culture is NGTD (No growth to date) Vancomycin and Zosyn discontinued c/w cefepime IVPB every 8 hours Normal saline at 50 cc/hr Continue with cardiac monitoring Howard catheter in place Monitor for fever Follow-up CBC Continue with Wound care; wound care consulted Surgery consult; no plans for surgical intervention ID consulted Stable for transfer to medical floor Need clarity on plan for wound healing between wound care and surgical services, wound vac vs packing #Small left-sided pulmonary effusion #Pneumonia ruled out, acute hypoxemic respiratory failure is secondary to atelectasis Legionella antigen ordered Procalcitonin ordered, is 0.71 Sputum culture ordered; pending Continue with IV antibiotics as stated above Pulmonology consulted #Metabolic alkalosis, resolved #Type 2 diabetes #Hyperglycemia Glucose 165 Hold oral diabetic medication Insulin SQ sliding scale and levemir 10 units sq hs Accu-Chek Hypoglycemic protocol #Anxiety 1 mg IV ativan every 6 hours are as needed #Hypokalemia, resolved Monitor with follow-up BMP #Microcytic anemia Denies active bleeding Has history of iron deficiency anemia Start oral iron replacement upon stabilization of infection F: NS at 50 cc/hr E: Replete electrolytes as needed N: Regular diet A: Ambulatory DVT prophylaxis: Heparin SQ 5000 unit q8hrs, SCD CODE STATUS: Full code I saw and evaluated the patient during the sawyer and critical portions of this encounter, and discussed the case in detail with the resident author of this note, I agree with the Assessment and Plan, and my changes, if any, are highlighted in blue. Objective - Vital Signs Vital signs: Vital Signs Temp 98.1 F 05/31/24 08:00 Pulse 86 05/31/24 12:21 Resp 28 H 05/31/24 09:00 BP 108/58 05/31/24 09:00 Pulse Ox 100 05/31/24 09:00 FiO2 Intake & Output 05/30/24 05/31/24 05/31/24 18:59 06:59 18:59 Intake Total 3653.289 5746 1974 Output Total 2100 2630 1150 Balance -297.052 -730 824 Intake: IV 1700 1900 900 Cefepime 2 gm In Sodium 100 100 100 Chloride 0.9% 100 ml @ 25 mls/hr IVPB Q8HR [facility] Rx# :[id number] Sodium Chloride 0.9% 1, 1100 1300 100 000 ml @ 100 mls/hr IV . Q10H [facility] Rx#:[id number] Sodium Chloride 0.9% 1, 200 000 ml @ 50 mls/hr IV . Q20H [facility] Rx#:[id number] Vancomycin 1,750 mg In 500 500 500 Sodium Chloride 0.9% 500 ml 500 ml @ 167 mls/hr IVPB Q12H [facility] Rx#: [id number] Intake, IV Titration 102.948 Amount Cefepime 2 gm In Sodium 100 Chloride 0.9% 100 ml @ 25 mls/hr IVPB Q8HR [facility] Rx# :[id number] Norepinephrine 32 mg In 2.948 Sodium Chloride 0.9% 218 ml @ 0.03 MCG/KG/MIN 1. 503 mls/hr IV .Q24H [facility] Rx#:[id number] Oral 1074 Output: Urine 2100 2630 1150 Other: Voiding Method Indwelling Catheter Indwelling Catheter Indwelling Catheter # Bowel Movements 1 - Labs CBC & Chem 7: 05/31/24 04:13 05/31/24 04:13 Labs: Abnormal Lab Results - Last 24 Hours (Table) 05/30/24 05/30/24 05/31/24 Range/Units 16:23 19:35 04:13 Hgb 8.3 L (11.4-16.0) gm/dL Hct 27.7 L (34.0-46.0) % MCV 72.4 L (80.0-100.0) fL MCH 21.7 L (25.0-35.0) pg MCHC 30.0 L (31.0-37.0) g/dL RDW 16.6 H (11.5-15.5) % Metamyelocytes # (Man) 0.15 H (0) k/uL Myelocytes # (Manual) 0.07 H (0) k/uL BUN (7-17) mg/dL Glucose (74-99) mg/dL POC Glucose (mg/dL) 175 H 174 H (70-110) mg/dL 05/31/24 05/31/24 05/31/24 Range/Units 04:13 06:28 11:47 Hgb (11.4-16.0) gm/dL Hct (34.0-46.0) % MCV (80.0-100.0) fL MCH (25.0-35.0) pg MCHC (31.0-37.0) g/dL RDW (11.5-15.5) % Metamyelocytes # (Man) (0) k/uL Myelocytes # (Manual) (0) k/uL BUN 19 H (7-17) mg/dL Glucose 118 H (74-99) mg/dL POC Glucose (mg/dL) 145 H 213 H (70-110) mg/dL Microbiology - Last 24 Hours (Table) 05/28/24 00:32 Gram Stain - Final Abdomen Wound Culture - Final Strep A 05/28/24 16:41 Blood Culture - Preliminary Blood 05/28/24 13:00 Urine Culture - Final Urine,Voided
--- NOTE | 2024-05-31 15:23 | P.PN ---
Subjective Progress Note Date: 05/31/24 Principal diagnosis: Reason for follow-up is sepsis and abdominal wound infection Patient is a 58-year-old female with a past medical history nephric and for diabetes mellitus osteoarthritis PE hypothyroidism in this patient who did have a ventral hernia repair complicated by development of a seroma that has been drained on multiple occasion now presenting with sepsis increasing drainage from abdominal wound concerning for wound infection. On today's evaluation that is 05/31/2024, Patient is afebrile patient is currently on room air and denies having any shortness of breath, the patient denies any chest pain or cough, the p abdominal pain has decreased no vomiting or diarrhea. D patient white count normal at 7.3, creatinine 0.57 abdominal culture with group A strep CT abdominal pelvis opacity left lung base probably atelectasis and consolidation no discrete abdominal abscess Objective - Vital Signs Vital signs: Vital Signs Temp 98.1 F 05/31/24 13:14 Pulse 72 05/31/24 13:14 Resp 26 H 05/31/24 13:14 BP 118/62 05/31/24 13:14 Pulse Ox 93 L 05/31/24 13:14 FiO2 Intake & Output 05/30/24 05/31/24 05/31/24 18:59 06:59 18:59 Intake Total 0021.283 6827 1984 Output Total 2100 2630 1150 Balance -297.052 -730 834 Intake: IV 1700 1900 910 Cefepime 2 gm In Sodium 100 100 100 Chloride 0.9% 100 ml @ 25 mls/hr IVPB Q8HR [facility] Rx# :[id number] Invasive Line 4 10 Sodium Chloride 0.9% 1, 1100 1300 100 000 ml @ 100 mls/hr IV . Q10H [facility] Rx#:[id number] Sodium Chloride 0.9% 1, 200 000 ml @ 50 mls/hr IV . Q20H [facility] Rx#:[id number] Vancomycin 1,750 mg In 500 500 500 Sodium Chloride 0.9% 500 ml 500 ml @ 167 mls/hr IVPB Q12H [facility] Rx#: [id number] Intake, IV Titration 102.948 Amount Cefepime 2 gm In Sodium 100 Chloride 0.9% 100 ml @ 25 mls/hr IVPB Q8HR [facility] Rx# :[id number] Norepinephrine 32 mg In 2.948 Sodium Chloride 0.9% 218 ml @ 0.03 MCG/KG/MIN 1. 503 mls/hr IV .Q24H [facility] Rx#:[id number] Oral 1074 Output: Urine 2100 2630 1150 Other: Voiding Method Indwelling Catheter Indwelling Catheter Indwelling Catheter # Bowel Movements 1 - Exam GENERAL DESCRIPTION: Middle-age female lying in bed in no distress RESPIRATORY SYSTEM: Unlabored breathing , decreased breath sounds at bases HEART: S1 S2 regular rate and rhythm , ABDOMEN: Soft , no tenderness EXTREMITIES: No edema feet - Labs CBC & Chem 7: 05/31/24 04:13 05/31/24 04:13 Labs: Abnormal Lab Results - Last 24 Hours (Table) 05/30/24 05/30/24 05/31/24 Range/Units 16:23 19:35 04:13 Hgb 8.3 L (11.4-16.0) gm/dL Hct 27.7 L (34.0-46.0) % MCV 72.4 L (80.0-100.0) fL MCH 21.7 L (25.0-35.0) pg MCHC 30.0 L (31.0-37.0) g/dL RDW 16.6 H (11.5-15.5) % Metamyelocytes # (Man) 0.15 H (0) k/uL Myelocytes # (Manual) 0.07 H (0) k/uL BUN (7-17) mg/dL Glucose (74-99) mg/dL POC Glucose (mg/dL) 175 H 174 H (70-110) mg/dL 05/31/24 05/31/24 05/31/24 Range/Units 04:13 06:28 11:47 Hgb (11.4-16.0) gm/dL Hct (34.0-46.0) % MCV (80.0-100.0) fL MCH (25.0-35.0) pg MCHC (31.0-37.0) g/dL RDW (11.5-15.5) % Metamyelocytes # (Man) (0) k/uL Myelocytes # (Manual) (0) k/uL BUN 19 H (7-17) mg/dL Glucose 118 H (74-99) mg/dL POC Glucose (mg/dL) 145 H 213 H (70-110) mg/dL Microbiology - Last 24 Hours (Table) 05/28/24 00:32 Gram Stain - Final Abdomen Wound Culture - Final Strep A 05/28/24 16:41 Blood Culture - Preliminary Blood Assessment and Plan (1) Septic shock Current Visit: Yes Status: Acute Code(s): A41.9 - SEPSIS, UNSPECIFIED ORGANISM; R65.21 - SEVERE SEPSIS WITH SEPTIC SHOCK SNOMED Code(s): 69589069 (2) Open abdominal wall wound Current Visit: Yes Status: Acute Code(s): S31.109A - UNSP OPN WND ABD WALL, UNSP Q W/O PENET PERIT CAV, INIT SNOMED Code(s): 412497483 (3) Abdominal wall cellulitis Current Visit: No Status: Acute Code(s): L03.311 - CELLULITIS OF ABDOMINAL WALL SNOMED Code(s): 15573136 Plan: 1patient with sepsis in this patient who did have a fever hypotension tachycardia meeting criteria for SIRS source likely abdominal as currently no other obvious focus of infection chest x-ray no pneumonia urine has been negative patient did have complicated abdominal history with development of seroma post ventral hernia repair and now being admitted to hospital with increasing drainage with some surrounding skin excoriation. [address] abdominal pelvis with no evidence of any intra-abdominal abscess concerning for possible left lower lobe pneumonia 3-blood cultures are pending and local culture growing group A strep 4-patient to continue with cefepime, vancomycin has been discontinued and will monitor clinical course closely Dictation was produced using Linq3 dictation software. please excuse any grammatical, word or spelling errors. Time with Patient: Less than 30
--- NOTE | 2024-05-31 16:19 | P.PN ---
Subjective Progress Note Date: 05/31/24 CHIEF COMPLAINT: Complicated open abdominal wound HISTORY OF PRESENT ILLNESS: The patient is a 58-year-old female admitted with complicated abdominal wound including severe hypotension, systolic blood pr essure 70s. She has been transferred from the ICU to the floor. She had an abdominal wound VAC at home and due to the severe excoriations along the skin and abdominal wall tissue wet-to-dry dressing is being performed. She tolerated regular diet which includes beef noodles. ROS: No reports of nausea and vomiting. No bowel movements. No fevers or chills. No new chest pain. Obese, BMI 41.6 PHYSICAL EXAM: VITAL SIGNS: Reviewed CONSTITUTIONAL: Well developed and in no acute distress. EYES: Conjuctivae without sclera icterus. Extraocular movements grossly intact. HEAD, EARS, NOSE, THROAT: Moist buccal mucosa. Head is atraumatic, normocephalic. Hears conversational speech. No nasal drainage. RESPIRATORY: Non-labored respirations and equal bilateral excursions. CARDIOVASCULAR: Palpable 2+ radial pulses. ABDOMEN: Protuberant. Dressing clean dry intact. Excoriation along the left lateral abdominal wall with adhesive barrier dressing present MUSCULOSKELETAL: No gross deformity of the lower extremities noted. No clubbing. No cyanosis. SKIN: Good skin turgor. Well perfused. NEUROLOGIC: Cranial nerves II through XII grossly intact. No focal or lateralizing signs. PSYCH: Alert to self. CLINICAL LABS: Reviewed. Hemoglobin 8.3, anemia ASSESSMENT: 1. Complicated open abdominal wound 2. Morbid obesity due to excess calories, BMI 41.6 3. Hypotension on admission now resolved PLAN: 1. Recommend augment diet to a high-protein diet, protein intake over 90 g joel ly. 2. Patient being seen by wound care where continue wet-to-dry dressing at this time Objective - Vital Signs Vital signs: Vital Signs Temp 98.1 F 05/31/24 13:14 Pulse 72 05/31/24 13:14 Resp 26 H 05/31/24 13:14 BP 118/62 05/31/24 13:14 Pulse Ox 93 L 05/31/24 13:14 FiO2 Intake & Output 05/30/24 05/31/24 05/31/24 18:59 06:59 18:59 Intake Total 5346.096 6224 1984 Output Total 2100 2630 1150 Balance -297.052 -730 834 Intake: IV 1700 1900 910 Cefepime 2 gm In Sodium 100 100 100 Chloride 0.9% 100 ml @ 25 mls/hr IVPB Q8HR [facility] Rx# :[id number] Invasive Line 4 10 Sodium Chloride 0.9% 1, 1100 1300 100 000 ml @ 100 mls/hr IV . Q10H [facility] Rx#:[id number] Sodium Chloride 0.9% 1, 200 000 ml @ 50 mls/hr IV . Q20H [facility] Rx#:[id number] Vancomycin 1,750 mg In 500 500 500 Sodium Chloride 0.9% 500 ml 500 ml @ 167 mls/hr IVPB Q12H [facility] Rx#: [id number] Intake, IV Titration 102.948 Amount Cefepime 2 gm In Sodium 100 Chloride 0.9% 100 ml @ 25 mls/hr IVPB Q8HR [facility] Rx# :[id number] Norepinephrine 32 mg In 2.948 Sodium Chloride 0.9% 218 ml @ 0.03 MCG/KG/MIN 1. 503 mls/hr IV .Q24H [facility] Rx#:[id number] Oral 1074 Output: Urine 2100 2630 1150 Other: Voiding Method Indwelling Catheter Indwelling Catheter Indwelling Catheter # Bowel Movements 1 - Labs CBC & Chem 7: 05/31/24 04:13 05/31/24 04:13 Labs: Abnormal Lab Results - Last 24 Hours (Table) 05/30/24 05/30/24 05/31/24 Range/Units 16:23 19:35 04:13 Hgb 8.3 L (11.4-16.0) gm/dL Hct 27.7 L (34.0-46.0) % MCV 72.4 L (80.0-100.0) fL MCH 21.7 L (25.0-35.0) pg MCHC 30.0 L (31.0-37.0) g/dL RDW 16.6 H (11.5-15.5) % Metamyelocytes # (Man) 0.15 H (0) k/uL Myelocytes # (Manual) 0.07 H (0) k/uL BUN (7-17) mg/dL Glucose (74-99) mg/dL POC Glucose (mg/dL) 175 H 174 H (70-110) mg/dL 05/31/24 05/31/24 05/31/24 Range/Units 04:13 06:28 11:47 Hgb (11.4-16.0) gm/dL Hct (34.0-46.0) % MCV (80.0-100.0) fL MCH (25.0-35.0) pg MCHC (31.0-37.0) g/dL RDW (11.5-15.5) % Metamyelocytes # (Man) (0) k/uL Myelocytes # (Manual) (0) k/uL BUN 19 H (7-17) mg/dL Glucose 118 H (74-99) mg/dL POC Glucose (mg/dL) 145 H 213 H (70-110) mg/dL Microbiology - Last 24 Hours (Table) 05/28/24 00:32 Gram Stain - Final Abdomen Wound Culture - Final Strep A 05/28/24 16:41 Blood Culture - Preliminary Blood
[2024-05-31 16:45] LABS: Glucose,Whole Blood 133 mg/dL (70-110)
[2024-05-31 20:42] LABS: Glucose,Whole Blood 187 mg/dL (70-110)
[2024-06-01 06:16] LABS: Anisocytosis Slight; HCT 27.9 % (34.0-46.0); HGB 8.7 gm/dL (11.4-16.0); Hypochromasia Marked; MCV 70.9 fL (80.0-100.0); Mean Platelet Volume 7.7; Microcytosis Moderate; Platelet Count 242 k/uL (150-450); RBC 3.94 m/uL (3.80-5.40); RDW 17.3 % (11.5-15.5)
[2024-06-01 06:28] LABS: Glucose,Whole Blood 143 mg/dL (70-110)
[2024-06-01 06:30] LABS: African American GFR (CKD) >90 (>60 ml/min/1.73 sqM); Anion Gap -3 mmol/L; Blood Urea Nitrogen 17 mg/dL (7-17); Calcium 8.8 mg/dL (8.4-10.2); Carbon Dioxide 33 mmol/L (22-30); Chloride 101 mmol/L (98-107); Glucose 128 mg/dL (74-99); Non-African American GFR(CKD) >90 (>60 ml/min/1.73 sqM); Potassium 4.1 mmol/L (3.5-5.1); Sodium 131 mmol/L (137-145)
[2024-06-01 07:22] LABS: Band Neutrophils % 4 %; Eosinophils # (M) 0.42 k/uL (0-0.7); Lymphocytes # (M) 1.54 k/uL (1.0-4.8); Metamyelocytes # (M) 0.07 k/uL (0); Metamyelocytes % 1 %; Monocytes # (M) 0.28 k/uL (0-1.0); Myelocytes # (M) 0.28 k/uL (0); Myelocytes % 4 %; Neutrophils % (M) 59 %; Nucleated Red Blood Cells 0 /100 WBC (0-0); Total Cells Counted 100
[2024-06-01 07:23] LABS: Anisocytosis (M) Present; Hypochromasia (M) Present
[2024-06-01 11:47] LABS: Glucose,Whole Blood 192 mg/dL (70-110)
--- NOTE | 2024-06-01 12:24 | P.PN ---
Subjective Progress Note Date: 06/01/24 Principal diagnosis: Pneumonia. Patient is a 58-year-old white female with past medical history significant for hernia repair at outside facility. Developed subsequent abdominal wall seroma, which was thought to be infected. Underwent I&D by Dr. Jasso 02/05/2024. She ended up with a wound VAC. Had recurrent fluid collection, and had a another I&D with wound debridement on 05/05/24. She has been following up at the wound care clinic. Also, has home health care that visits her multiple times per week. She also has history of asthma, diabetes mellitus, hypothyroidism, PE (not currently on anticoagulation), cerebral palsy, obesity. PCP is Dr. Melgar. Over the last couple days, patient has been reportedly more lethargic at home. Patient states that she ran out of wound care dressings and supplies at home. She removed her wound VAC. Has had a lot of drainage from her abdominal wall wound. She called EMS. While being evaluated the emergency department, she was found to be hypotensive she was fluid resuscitated with a total of 3 L crystalloid fluid bolus. Normal saline continues at 130 mL/h. Despite this, remained hypotensive, and was started on low-dose norepinephrine which is currently infusing at 0.05 mcg/kg/min. She is currently in the intensive care unit, room 266. She is lethargic, answers most of my questions appropriately. Technically oriented x 3. She denies any current complaints. Her abdominal wall wound is surrounded by macerated tissue. The wound bed itself is mostly granulation tissue. There is a cloudy pink to brown colored fluid that is foul- smelling. Appropriate cultures were taken. She is covered on broad-spectrum antibiotics in the form of Zosyn and vancomycin. Current blood pressure is reading 92/62 mmHg. Heart rate appears normal sinus on the bedside monitor with a rate of 60 bpm. She is resting comfortably on 3 L/min nasal cannula. SpO2 98%. She is currently afebrile, however, did spike of temperature of 101 F in the emergency department. Chest x-ray done arrival in the emergency department shows cardiomegaly with a left lower lobe opacity. 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 This could be atelectasis versus infectious process. Patient denies any shortness of breath, cough with sputum production, chest pain, hemoptysis. Denies sick contacts. Tested negative for COVID on arrival. CBC: WBC count 7.5, hemoglobin 9.6, hematocrit 30.6, platelets 244. She has chronic microcytic hypochromic anemia. CMP: Sodium 134, potassium 2.8, chloride 95, serum bicarb 31, BUN 22, creatinine 0.61, blood glucose 250. LFTs mildly elevated. Lactic 1.5. Urinalysis not particular remarkable for infection. Rare bacteria. She denies any urinary complaints. Prognosis is guarded. Patient was evaluated this morning on 05/30/2024. She is alert and oriented, not in acute distress. She is saturating at 96% on nasal cannula at 2L/min. Her CXR on 05/29 showed some atelectasis at left lung base. Gallbladder ultraasound on 05/28 showed prominent common bile duct, may consider further evaluation with MRCP. She is currently receiving Vancomycin/Cefepime, normal saline at 100cc /hr, and norepinephrine 0.01 mcg/kg/min. CT Abdomen and Pelvis with IV contrast ordered per surgery. Her CBC showed WBC count of 10.8, hemoglobin 8.9, platelet 257. Her CMP showed sodium 140, potassium 3.8. Procalcitonin of 0.71 on 05/28/2024. Urine culture was negative. Pending final blood culture results. Urinalysis not particular remarkable for infection. Prognosis is guarded. Patient was evaluated this morning on 05/31/2024. She is alert and oriented, not in acute distress. She is currently saturating at 96% on nasal cannula at 2L/min. Her CT Abdomin/Pelvis done on 05/30 showed generalized anasarca change, correlate for third spacing. Edematous gallbladder wall thickening, extensive opacity at left lower base of the lung, signs of esophagitis, and hazy density surrounding pancreas were also shown on the CT. She is currently receiving Vancomycin and Cefepime which covers the positive Strep A growth in the wound culture. She is also receiving normal saline at 100 cc/hr. We will decrease the NS infusion rate to 50 cc/hr. Norepinephrine has been discontinued. Patient has stable blood pressure. Her CBC showed WBC count of 7.3, hemoglobin 8.3, platelet 232. Her CMP showed sodium 137, potassium 4.3, BUN 19, creatinine 0.57. Procalcitonin of 0.71 on 05/28/2024. Urine culture was negative. Pending final blood culture results. Urinalysis not particular remarkable for infection. Patient is stable enough to be transferred to the general medical floor. Progress note dated June 01, 2024. The patient was moved out of the intensive care unit, and is seen today in room 461. Currently, she is on 2 L nasal cannula. She is receiving cefepime. The wound cultures, showed evidence of group a streptococcus. She denies any shortness of breath, cough, wheezing, or chest tightness. She was initially mated with a diagnosis of sepsis. She did require fluid resuscitation, and norepinephrine. Current laboratory data includes a white count of 7, hemoglobin 8.7, hematocrit 27.9, and platelet count 242,000. Sodium 131, potassium 4.1, chlorides 101, CO2 33, BUN 17, creatinine 0.49. Glucose was 192. Calcium 8.8. Objective - Vital Signs Vital signs: Vital Signs Temp 97.6 F 06/01/24 07:10 Pulse 80 06/01/24 08:53 Resp 18 06/01/24 07:52 BP 107/71 06/01/24 07:10 Pulse Ox 95 06/01/24 07:10 FiO2 Intake & Output 05/31/24 06/01/24 06/01/24 18:59 06:59 18:59 Intake Total 1984 Output Total 1150 1000 400 Balance 834 -1000 -400 Intake: IV 910 Cefepime 2 gm In Sodium 100 Chloride 0.9% 100 ml @ 25 mls/hr IVPB Q8HR [facility] Rx# :[id number] Invasive Line 4 10 Sodium Chloride 0.9% 1, 100 000 ml @ 100 mls/hr IV . Q10H [facility] Rx#:[id number] Sodium Chloride 0.9% 1, 200 000 ml @ 50 mls/hr IV . Q20H [facility] Rx#:[id number] Vancomycin 1,750 mg In 500 Sodium Chloride 0.9% 500 ml 500 ml @ 167 mls/hr IVPB Q12H [facility] Rx#: [id number] Oral 1074 Output: Urine 1150 1000 400 Other: Voiding Method Indwelling Catheter External Catheter # Voids 1 # Bowel Movements 1 - Exam No acute distress, oriented 3. Currently on 2 L nasal cannula. No respiratory distress. HEENT examination is grossly unremarkable. Mucous membranes are moist. No oral lesions. Neck supple. Full range of motion. No adenopathy thyromegaly or neck vein distention. Cardiovascular examination reveals regular rhythm rate. S1-S2 normal. No S3 or S4. No discernible murmur noted. Heart rate 80 bpm. Lungs reveal scattered rhonchi. No wheezes or crackles. 2 L saturation is 97%. Abdomen obese, but soft. Midline abdominal wound noted. Bowel sounds are appreciated. Extremities are intact. No cyanosis clubbing or edema. Skin is without rash or lesion. Neurologic examination is brief but nonfocal. - Labs CBC & Chem 7: 06/01/24 05:35 06/01/24 05:35 Labs: Abnormal Lab Results - Last 24 Hours (Table) 05/31/24 05/31/24 06/01/24 Range/Units 16:44 20:39 05:35 Hgb (11.4-16.0) gm/dL Hct (34.0-46.0) % MCV (80.0-100.0) fL MCH (25.0-35.0) pg RDW (11.5-15.5) % Metamyelocytes # (Man) (0) k/uL Myelocytes # (Manual) (0) k/uL Sodium (137-145) mmol/L Carbon Dioxide (22-30) mmol/L Creatinine 0.50 L (0.52-1.04) mg/dL Glucose (74-99) mg/dL POC Glucose (mg/dL) 133 H 187 H (70-110) mg/dL 06/01/24 06/01/24 06/01/24 Range/Units 05:35 05:35 06:27 Hgb 8.7 L (11.4-16.0) gm/dL Hct 27.9 L (34.0-46.0) % MCV 70.9 L (80.0-100.0) fL MCH 22.0 L (25.0-35.0) pg RDW 17.3 H (11.5-15.5) % Metamyelocytes # (Man) 0.07 H (0) k/uL Myelocytes # (Manual) 0.28 H (0) k/uL Sodium 131 L (137-145) mmol/L Carbon Dioxide 33 H (22-30) mmol/L Creatinine 0.49 L (0.52-1.04) mg/dL Glucose 128 H (74-99) mg/dL POC Glucose (mg/dL) 143 H (70-110) mg/dL 06/01/24 Range/Units 11:45 Hgb (11.4-16.0) gm/dL Hct (34.0-46.0) % MCV (80.0-100.0) fL MCH (25.0-35.0) pg RDW (11.5-15.5) % Metamyelocytes # (Man) (0) k/uL Myelocytes # (Manual) (0) k/uL Sodium (137-145) mmol/L Carbon Dioxide (22-30) mmol/L Creatinine (0.52-1.04) mg/dL Glucose (74-99) mg/dL POC Glucose (mg/dL) 192 H (70-110) mg/dL Microbiology - Last 24 Hours (Table) 05/28/24 16:41 Blood Culture - Preliminary Blood 05/28/24 00:32 Gram Stain - Final Abdomen Wound Culture - Final Strep A Assessment and Plan Assessment: Hypotension, secondary to sepsis, requiring fluid resuscitation, and vasopressors, resolved. Acute febrile illness, secondary to sepsis. Abdominal wall wound. History of ventral abdominal hernia repair at outside facility, subsequently developed seroma, with I&D by Dr. Jasso 02/05/2024. Acute hypoxemic respiratory failure, currently on 2 L/min nasal cannula. Microcytic, hypochromic anemia. Diabetes mellitus type 2. History of hypothyroidism. History of pulmonary embolism. History of mild intermittent asthma. Obesity, with a BMI of 38.8 kg/m. History of depression. Plan: Plan dated June 01, 2024. The abdominal wound showed evidence of group A Streptococcus. The patient continues on antibiotics in the form of cefepime. She is being followed by infectious diseases. Labs, x-rays, and medications are reviewed. The patient's overall situation has improved. Initially when she came in, despite fluid resuscitation, she had significant hypotension which required admission to the intensive care unit, and norepinephrine. Time with Patient: Less than 30
--- NOTE | 2024-06-01 12:30 | P.PN ---
Subjective Progress Note Date: 06/01/24 Hospital course: Patient is a 58-year-old female with a type 2 diabetes, asthma, presented to the ED with fever and abdominal pain. Patient states she has a history of recurrent abdominal problems. She had previous hernia repair from outside facility which was complicated with an infected abdominal wall seroma. She underwent incision, drainage, and debridement by Dr. Jasso on 02/05/2024. Subsequently, she had recurrent fluid collection which was followed by another incision, drainage, and debridement on 05/05/2024. Patient regularly seen wound care for drainage and dressing changes. Patient had a wound VAC, but she removed the yesterday. She said she removed the wound VAC because she was out of supplies to change it. Reported a lot of drainage from her wound which prompted her to the call EMS. While in the ED patient was hypotensive. Was given 3L NS with no improvement. Central line was placed and she was transferred to ICU for further assessment. Pulmonology was consulted. ID consulted. General surgery consulted. Wound care consulted. Patient on Levophed for blood pressure support, Zosyn and Vanco for empiric antibiotic coverage. Patient is off levophed. Patient transferred to regular medical floor. Subjective: Patient seen and examined at bedside. Patient is not complaining of shortness of breath, chest pain, abdominal pain. Voiding well, has Howard. All Systems reviewed and pertinent positives and negatives noted in HPI, all other symptoms are negative Objective: Vital signs reviewed. Physical examination: Vitals: T 101F, TX 109, RR 20, BP 110/64, O2 sat 100% on 3 L nasal cannula General: no distress, appears at stated age, obese Derm: no unusual rashes/lesions, warm Head: atraumatic, normocephalic, symmetric Eyes: EOMI, anicteric sclera, pupils equal round reactive to light ENT: Nose and ears atraumatic Mouth: no lip lesion, mucus membranes moist Cardiovascular: S1S2 reg, no murmur, positive dorsalis pedis pulse bilateral, no edema Lungs: CTA bilateral, no rhonchi, no rales, no accessory muscle use Abdominal: soft, tender to palpation, ~10 cm ulceration lower left abdomen , erythema or drainage, no wound vac Ext: muscle strength 5 out of 5 in all 4 extremities grossly, no gross muscle atrophy Neuro: CN II-XI grossly intact, no gross focal neuro deficits Psych: lethargic arousable, oriented to person, place, and time Data reviewed: Labs during hospitalization: WBC 7.3, hemoglobin 8.3, sodium 137, potassium 4.3, BUN 19, creatinine 0.57, magnesium 1.9, procalcitonin 0.3 Wound culture positive for group A strep pyogenes and stain positive for moderate gram-positive cocci in chains and rare gram-negative Urine culture is negative Hgb 8.3, MCV 69.7 baseline is 9.5 Images during hospitalization: No new imaging Assessment/Plan: Patient is a 58-year-old female with a type 2 diabetes, asthma, presented to the ED with fever and abdominal pain. Patient admitted for evaluation of septic shock. #Septic shock, likely abdominal source vs less likely pulmonary #Unhealing abdominal ulceration Blood culture is NGTD (No growth to date) Vancomycin and Zosyn discontinued c/w cefepime IVPB every 8 hours Normal saline at 50 cc/hr Continue with cardiac monitoring Howard catheter in place Monitor for fever Follow-up CBC Continue with Wound care; wound care consulted Surgery consult; no plans for surgical intervention ID consulted Need clarity on plan for wound healing between wound care and surgical services, wound vac vs packing #Small left-sided pulmonary effusion #Pneumonia ruled out, acute hypoxemic respiratory failure is secondary to atelectasis Legionella antigen ordered Procalcitonin ordered, is 0.71 Sputum culture ordered; pending Continue with IV antibiotics as stated above Pulmonology consulted #Metabolic alkalosis, resolved #Type 2 diabetes #Hyperglycemia Glucose 165 Hold oral diabetic medication Insulin SQ sliding scale and levemir 10 units sq hs Accu-Chek Hypoglycemic protocol #Anxiety 1 mg IV ativan every 6 hours are as needed #Hypokalemia, resolved Monitor with follow-up BMP #Microcytic anemia Denies active bleeding Has history of iron deficiency anemia Start oral iron replacement upon stabilization of infection F: NS at 50 cc/hr E: Replete electrolytes as needed N: Regular diet A: Ambulatory DVT prophylaxis: Heparin SQ 5000 unit q8hrs, SCD CODE STATUS: Full code Objective - Vital Signs Vital signs: Vital Signs Temp 97.6 F 06/01/24 07:10 Pulse 80 06/01/24 08:53 Resp 18 06/01/24 07:52 BP 107/71 06/01/24 07:10 Pulse Ox 95 06/01/24 07:10 FiO2 Intake & Output 05/31/24 06/01/24 06/01/24 18:59 06:59 18:59 Intake Total 1984 Output Total 1150 1000 400 Balance 834 -1000 -400 Intake: IV 910 Cefepime 2 gm In Sodium 100 Chloride 0.9% 100 ml @ 25 mls/hr IVPB Q8HR EREN Rx# :[id number] Invasive Line 4 10 Sodium Chloride 0.9% 1, 100 000 ml @ 100 mls/hr IV . Q10H EREN Rx#:[id number] Sodium Chloride 0.9% 1, 200 000 ml @ 50 mls/hr IV . Q20H EREN Rx#:[id number] Vancomycin 1,750 mg In 500 Sodium Chloride 0.9% 500 ml 500 ml @ 167 mls/hr IVPB Q12H EREN Rx#: [id number] Oral 1074 Output: Urine 1150 1000 400 Other: Voiding Method Indwelling Catheter External Catheter # Voids 1 # Bowel Movements 1 - Labs CBC & Chem 7: 06/01/24 05:35 06/01/24 05:35 Labs: Abnormal Lab Results - Last 24 Hours (Table) 05/31/24 05/31/24 06/01/24 Range/Units 16:44 20:39 05:35 Hgb (11.4-16.0) gm/dL Hct (34.0-46.0) % MCV (80.0-100.0) fL MCH (25.0-35.0) pg RDW (11.5-15.5) % Metamyelocytes # (Man) (0) k/uL Myelocytes # (Manual) (0) k/uL Sodium (137-145) mmol/L Carbon Dioxide (22-30) mmol/L Creatinine 0.50 L (0.52-1.04) mg/dL Glucose (74-99) mg/dL POC Glucose (mg/dL) 133 H 187 H (70-110) mg/dL 06/01/24 06/01/24 06/01/24 Range/Units 05:35 05:35 06:27 Hgb 8.7 L (11.4-16.0) gm/dL Hct 27.9 L (34.0-46.0) % MCV 70.9 L (80.0-100.0) fL MCH 22.0 L (25.0-35.0) pg RDW 17.3 H (11.5-15.5) % Metamyelocytes # (Man) 0.07 H (0) k/uL Myelocytes # (Manual) 0.28 H (0) k/uL Sodium 131 L (137-145) mmol/L Carbon Dioxide 33 H (22-30) mmol/L Creatinine 0.49 L (0.52-1.04) mg/dL Glucose 128 H (74-99) mg/dL POC Glucose (mg/dL) 143 H (70-110) mg/dL 06/01/24 Range/Units 11:45 Hgb (11.4-16.0) gm/dL Hct (34.0-46.0) % MCV (80.0-100.0) fL MCH (25.0-35.0) pg RDW (11.5-15.5) % Metamyelocytes # (Man) (0) k/uL Myelocytes # (Manual) (0) k/uL Sodium (137-145) mmol/L Carbon Dioxide (22-30) mmol/L Creatinine (0.52-1.04) mg/dL Glucose (74-99) mg/dL POC Glucose (mg/dL) 192 H (70-110) mg/dL Microbiology - Last 24 Hours (Table) 05/28/24 16:41 Blood Culture - Preliminary Blood 05/28/24 00:32 Gram Stain - Final Abdomen Wound Culture - Final Strep A
--- NOTE | 2024-06-01 15:29 | P.PN ---
Subjective Progress Note Date: 06/01/24 Principal diagnosis: No new complaints. Patient has complicated abdominal wound. At this time, recommend Augmentin nutrition to at least 90 g daily for optimal wound healing. Patient to be reassessed by additional providers tomorrow regarding wound VAC placement. Objective - Vital Signs Vital signs: Vital Signs Temp 97.7 F 06/01/24 13:10 Pulse 86 06/01/24 13:10 Resp 18 06/01/24 13:10 BP 132/82 06/01/24 13:10 Pulse Ox 96 06/01/24 13:10 FiO2 Intake & Output 05/31/24 06/01/24 06/01/24 18:59 06:59 18:59 Intake Total 1984 Output Total 1150 1000 400 Balance 834 -1000 -400 Intake: IV 910 Cefepime 2 gm In Sodium 100 Chloride 0.9% 100 ml @ 25 mls/hr IVPB Q8HR EREN Rx# :[id number] Invasive Line 4 10 Sodium Chloride 0.9% 1, 100 000 ml @ 100 mls/hr IV . Q10H EREN Rx#:[id number] Sodium Chloride 0.9% 1, 200 000 ml @ 50 mls/hr IV . Q20H EREN Rx#:[id number] Vancomycin 1,750 mg In 500 Sodium Chloride 0.9% 500 ml 500 ml @ 167 mls/hr IVPB Q12H EREN Rx#: [id number] Oral 1074 Output: Urine 1150 1000 400 Other: Voiding Method Indwelling Catheter External Catheter # Voids 1 1 # Bowel Movements 1 1 - Labs CBC & Chem 7: 06/01/24 05:35 06/01/24 05:35 Labs: Abnormal Lab Results - Last 24 Hours (Table) 05/31/24 05/31/24 06/01/24 Range/Units 16:44 20:39 05:35 Hgb (11.4-16.0) gm/dL Hct (34.0-46.0) % MCV (80.0-100.0) fL MCH (25.0-35.0) pg RDW (11.5-15.5) % Metamyelocytes # (Man) (0) k/uL Myelocytes # (Manual) (0) k/uL Sodium (137-145) mmol/L Carbon Dioxide (22-30) mmol/L Creatinine 0.50 L (0.52-1.04) mg/dL Glucose (74-99) mg/dL POC Glucose (mg/dL) 133 H 187 H (70-110) mg/dL 06/01/24 06/01/24 06/01/24 Range/Units 05:35 05:35 06:27 Hgb 8.7 L (11.4-16.0) gm/dL Hct 27.9 L (34.0-46.0) % MCV 70.9 L (80.0-100.0) fL MCH 22.0 L (25.0-35.0) pg RDW 17.3 H (11.5-15.5) % Metamyelocytes # (Man) 0.07 H (0) k/uL Myelocytes # (Manual) 0.28 H (0) k/uL Sodium 131 L (137-145) mmol/L Carbon Dioxide 33 H (22-30) mmol/L Creatinine 0.49 L (0.52-1.04) mg/dL Glucose 128 H (74-99) mg/dL POC Glucose (mg/dL) 143 H (70-110) mg/dL 06/01/24 Range/Units 11:45 Hgb (11.4-16.0) gm/dL Hct (34.0-46.0) % MCV (80.0-100.0) fL MCH (25.0-35.0) pg RDW (11.5-15.5) % Metamyelocytes # (Man) (0) k/uL Myelocytes # (Manual) (0) k/uL Sodium (137-145) mmol/L Carbon Dioxide (22-30) mmol/L Creatinine (0.52-1.04) mg/dL Glucose (74-99) mg/dL POC Glucose (mg/dL) 192 H (70-110) mg/dL Microbiology - Last 24 Hours (Table) 05/28/24 00:32 Anaerobic Culture - Preliminary Abdomen 05/28/24 16:41 Blood Culture - Preliminary Blood
--- NOTE | 2024-06-01 16:17 | P.PN ---
Subjective Progress Note Date: 06/01/24 Principal diagnosis: Reason for follow-up is sepsis and abdominal wound infection Patient is a 58-year-old female with a past medical history nephric and for diabetes mellitus osteoarthritis PE hypothyroidism in this patient who did have a ventral hernia repair complicated by development of a seroma that has been drained on multiple occasion now presenting with sepsis increasing drainage from abdominal wound concerning for wound infection. On today's evaluation that is 06/01/2024, patient has been afebrile, patient is breathing comfortably and is currently on 2 L nasal cannula oxygen, patient denies having any chest pain the patient have some cough but not bringing up any sputum, patient denies nausea vomiting or diarrhea and no abdominal pain. Patient white count is 7.0, creatinine 0.49 local culture with strep today Objective - Vital Signs Vital signs: Vital Signs Temp 97.7 F 06/01/24 13:10 Pulse 82 06/01/24 16:15 Resp 18 06/01/24 13:10 BP 132/82 06/01/24 13:10 Pulse Ox 96 06/01/24 13:10 FiO2 Intake & Output 05/31/24 06/01/24 06/01/24 18:59 06:59 18:59 Intake Total 1984 Output Total 1150 1000 400 Balance 834 -1000 -400 Intake: IV 910 Cefepime 2 gm In Sodium 100 Chloride 0.9% 100 ml @ 25 mls/hr IVPB Q8HR EREN Rx# :[id number] Invasive Line 4 10 Sodium Chloride 0.9% 1, 100 000 ml @ 100 mls/hr IV . Q10H EREN Rx#:[id number] Sodium Chloride 0.9% 1, 200 000 ml @ 50 mls/hr IV . Q20H EREN Rx#:[id number] Vancomycin 1,750 mg In 500 Sodium Chloride 0.9% 500 ml 500 ml @ 167 mls/hr IVPB Q12H EREN Rx#: [id number] Oral 1074 Output: Urine 1150 1000 400 Other: Voiding Method Indwelling Catheter External Catheter # Voids 1 1 # Bowel Movements 1 1 - Exam GENERAL DESCRIPTION: Middle-age female lying in bed in no distress RESPIRATORY SYSTEM: Unlabored breathing , decreased breath sounds at bases HEART: S1 S2 regular rate and rhythm , ABDOMEN: Soft , no tenderness EXTREMITIES: No edema feet - Labs CBC & Chem 7: 06/01/24 05:35 06/01/24 05:35 Labs: Abnormal Lab Results - Last 24 Hours (Table) 05/31/24 05/31/24 06/01/24 Range/Units 16:44 20:39 05:35 Hgb (11.4-16.0) gm/dL Hct (34.0-46.0) % MCV (80.0-100.0) fL MCH (25.0-35.0) pg RDW (11.5-15.5) % Metamyelocytes # (Man) (0) k/uL Myelocytes # (Manual) (0) k/uL Sodium (137-145) mmol/L Carbon Dioxide (22-30) mmol/L Creatinine 0.50 L (0.52-1.04) mg/dL Glucose (74-99) mg/dL POC Glucose (mg/dL) 133 H 187 H (70-110) mg/dL 06/01/24 06/01/24 06/01/24 Range/Units 05:35 05:35 06:27 Hgb 8.7 L (11.4-16.0) gm/dL Hct 27.9 L (34.0-46.0) % MCV 70.9 L (80.0-100.0) fL MCH 22.0 L (25.0-35.0) pg RDW 17.3 H (11.5-15.5) % Metamyelocytes # (Man) 0.07 H (0) k/uL Myelocytes # (Manual) 0.28 H (0) k/uL Sodium 131 L (137-145) mmol/L Carbon Dioxide 33 H (22-30) mmol/L Creatinine 0.49 L (0.52-1.04) mg/dL Glucose 128 H (74-99) mg/dL POC Glucose (mg/dL) 143 H (70-110) mg/dL 06/01/24 Range/Units 11:45 Hgb (11.4-16.0) gm/dL Hct (34.0-46.0) % MCV (80.0-100.0) fL MCH (25.0-35.0) pg RDW (11.5-15.5) % Metamyelocytes # (Man) (0) k/uL Myelocytes # (Manual) (0) k/uL Sodium (137-145) mmol/L Carbon Dioxide (22-30) mmol/L Creatinine (0.52-1.04) mg/dL Glucose (74-99) mg/dL POC Glucose (mg/dL) 192 H (70-110) mg/dL Microbiology - Last 24 Hours (Table) 05/28/24 00:32 Anaerobic Culture - Preliminary Abdomen 05/28/24 16:41 Blood Culture - Preliminary Blood Assessment and Plan (1) Septic shock Current Visit: Yes Status: Acute Code(s): A41.9 - SEPSIS, UNSPECIFIED ORGANISM; R65.21 - SEVERE SEPSIS WITH SEPTIC SHOCK SNOMED Code(s): 49299100 (2) Open abdominal wall wound Current Visit: Yes Status: Acute Code(s): S31.109A - UNSP OPN WND ABD WALL, UNSP Q W/O PENET PERIT CAV, INIT SNOMED Code(s): 424041223 (3) Abdominal wall cellulitis Current Visit: No Status: Acute Code(s): L03.311 - CELLULITIS OF ABDOMINAL WALL SNOMED Code(s): 64415121 Plan: 1patient with sepsis in this patient who did have a fever hypotension tachycardia meeting criteria for SIRS source likely abdominal as currently no other obvious focus of infection chest x-ray no pneumonia urine has been negative patient did have complicated abdominal history with development of seroma post ventral hernia repair and now being admitted to hospital with increasing drainage with some surrounding skin excoriation. [address] abdominal pelvis with no evidence of any intra-abdominal abscess concerning for possible left lower lobe pneumonia 3-blood cultures are so far negative and local culture growing group A strep 4-patient did have clinical improvement to continue with cefepime, transition to oral antibiotic on discharge Dictation was produced using [employer] dictation software. please excuse any grammatical, word or spelling errors. Time with Patient: Less than 30
[2024-06-01 17:02] LABS: Glucose,Whole Blood 186 mg/dL (70-110)
[2024-06-01 20:34] LABS: Glucose,Whole Blood 176 mg/dL (70-110)
[2024-06-02 06:33] LABS: Glucose,Whole Blood 169 mg/dL (70-110)
[2024-06-02 08:45] LABS: HCT 31.4 % (37.2-46.3); MCHC 28.7 g/dL (32.0-37.0); MCV 73.2 FL (80.0-97.0); Mean Platelet Volume 9.6 FL (9.5-12.2); NRBC Per 100 WBC 0.02 X 10*3/uL (0.00-0.01); Platelet Count 227 X 10*3/uL (140-440); RBC 4.29 X 10*6/uL (4.10-5.20); RDW 17.6 % (11.5-14.5); WBC 8.61 X 10*3/uL (4.50-10.00)
[2024-06-02 10:31] LABS: Blood Urea Nitrogen 18.3 mg/dL (9.0-27.0); Calcium 8.9 mg/dL (8.7-10.3); Carbon Dioxide 31.1 mmol/L (21.6-31.8); Chloride 98 mmol/L (96-109); Glucose 148 mg/dL (70-110); Potassium 4.4 mmol/L (3.5-5.5); Sodium 139 mmol/L (135-145)
[2024-06-02 11:08] LABS: Basophils # (M) 0.26 X 10*3/uL (0.00-0.10); Elliptocytes 2+; Eosinophils # (M) 0.34 X 10*3/uL (0.04-0.35); Hypochromasia (M) 2+; Lymphocytes # (M) 1.21 X 10*3/uL (0.90-5.00); Metamyelocytes % 6 % (0-0); Microcytosis (M) 2+; Myelocytes % 4 % (0-0); Neutrophils # (M) 5.34 X 10*3/uL (1.80-7.70); Neutrophils % (M) 62 %
[2024-06-02 11:10] LABS: Glucose,Whole Blood 198 mg/dL (70-110)
[2024-06-02 11:49] VITALS: BMI 41.5
--- NOTE | 2024-06-02 12:29 | P.PN ---
Subjective Progress Note Date: 06/02/24 CHIEF COMPLAINT: Abdominal wound HISTORY OF PRESENT ILLNESS: Patient regular medical floor. She is feeling better. Her CT scan had showed no evidence of abscess. She is afebrile. They are talking possible discharge today. Abdominal cellulitis improved. Afebrile. WBC 8.61 Hgb 9.0 PHYSICAL EXAM: VITAL SIGNS: Reviewed. GENERAL: Well-developed in no acute distress. ABDOMEN: Soft. Nondistended. Nontender. Abdominal wound mid abdomen healthy tissue. Serous drainage noted. NEUROLOGIC: Alert and oriented. Cranial nerves II through XII grossly intact. ASSESSMENT: 1. Abdominal wound 2. Abdominal wall cellulitis and excoriation 3. History of ventral abdominal hernia repair at outside facility and developed seroma requiring incision, drainage and debridement x 2. Last debridement on 05/05/2024. 4. Sepsis PLAN: -Patient can be discharge from surgical standpoint when medically cleared -No surgical intervention planned -Would keep wound VAC off at this point and continue wet-to-dry dressing changes daily -Discharge antibiotics per infectious disease -Continue a high-protein diet to promote wound healing Physician Patient Monitor note has been reviewed by physician. Signing provider agrees with the documented findings, assessment, and plan of care. Objective - Vital Signs Vital signs: Vital Signs Temp 97.3 F L 06/02/24 08:00 Pulse 72 06/02/24 11:37 Resp 18 06/02/24 08:00 BP 116/80 06/02/24 08:00 Pulse Ox 95 06/02/24 11:16 FiO2 Intake & Output 06/01/24 06/02/24 06/02/24 18:59 06:59 18:59 Intake Total 800 Output Total 400 Balance 400 Weight 109.9 kg Intake: IV 600 Sodium Chloride 0.9% 1, 600 000 ml @ 50 mls/hr IV . Q20H EREN Rx#:[id number] Intake, IV Titration 200 Amount Cefepime 2 gm In Sodium 200 Chloride 0.9% 100 ml @ 25 mls/hr IVPB Q8HR EREN Rx# :[id number] Output: Urine 400 Other: Voiding Method External Catheter # Voids 1 2 # Bowel Movements 1 1 - Labs CBC & Chem 7: 06/02/24 06:26 06/02/24 06:26 Labs: Abnormal Lab Results - Last 24 Hours (Table) 09/06/01/24 06/02/24 Range/Units 17:01 20:32 06:26 Hgb (12.0-15.0) g/dL Hct (37.2-46.3) % MCV (80.0-97.0) FL MCH (27.0-32.0) pg MCHC (32.0-37.0) g/dL RDW (11.5-14.5) % Basophils # (Manual) (0.00-0.10) X 10*3/uL NRBC/100 WBC Diff (0.00-0.01) X 10*3/uL Hypochromasia (manual) Microcytosis (manual) Elliptocytes Creatinine 0.5 L (0.6-1.5) mg/dL BUN/Creatinine Ratio 36.60 H (12.00-20.00) Ratio Glucose 148 H (70-110) mg/dL POC Glucose (mg/dL) 186 H 176 H (70-110) mg/dL 06/02/24 06/02/24 06/02/24 Range/Units 06:26 06:30 11:09 Hgb 9.0 L (12.0-15.0) g/dL Hct 31.4 L (37.2-46.3) % MCV 73.2 L (80.0-97.0) FL MCH 21.0 L (27.0-32.0) pg MCHC 28.7 L (32.0-37.0) g/dL RDW 17.6 H (11.5-14.5) % Basophils # (Manual) 0.26 H (0.00-0.10) X 10*3/uL NRBC/100 WBC Diff 0.02 H (0.00-0.01) X 10*3/uL Hypochromasia (manual) 2+ A Microcytosis (manual) 2+ A Elliptocytes 2+ A Creatinine (0.6-1.5) mg/dL BUN/Creatinine Ratio (12.00-20.00) Ratio Glucose (70-110) mg/dL POC Glucose (mg/dL) 169 H 198 H (70-110) mg/dL Microbiology - Last 24 Hours (Table) 05/28/24 00:32 Anaerobic Culture - Final Abdomen Porphyromonas randy
[2024-06-02 13:07] VITALS: BP 121/68; PULSE 65; RESP 19; TEMP 98.4
--- NOTE | 2024-06-02 14:40 | P.DS ---
Providers Date of admission: 05/28/24 17:55 Expected date of discharge: 06/02/24 Attending physician: Sho Buck MD Consults: 05/28/24 17:53 Consult Physician Routine Consulting Provider: Benny Jasso Consult Reason/Comments: known Do you want consulting provider notified?: Yes 05/28/24 17:54 Consult Physician Routine Consulting Provider: Loc Ricci Consult Reason/Comments: known Do you want consulting provider notified?: Yes 05/28/24 17:55 Consult Physician Routine Consulting Provider: Janie Amaral Consult Reason/Comments: sepsis Do you want consulting provider notified?: Yes Primary care physician: Candido Alvaserena Hospital Course: Discharge diagnoses; #Septic shock, likely abdominal source vs less likely pulmonary #Unhealing abdominal ulceration #Small left-sided pulmonary effusion #Pneumonia ruled out, acute hypoxemic respiratory failure is secondary to atelectasis #Microcytic anemia Hospital course; Patient is a 58-year-old female with a type 2 diabetes, asthma, presented to the ED with fever and abdominal pain. Patient states she has a history of recurrent abdominal problems. She had previous hernia repair from outside facility which was complicated with an infected abdominal wall seroma. She underwent incision, drainage, and debridement by Dr. Jasso on 02/05/2024. Subsequently, she had recurrent fluid collection which was followed by another incision, drainage, and debridement on 05/05/2024. Patient regularly seen wound care for drainage and dressing changes. Patient had a wound VAC, but she removed the yesterday. She said she removed the wound VAC because she was out of supplies to change it. Reported a lot of drainage from her wound which prompted her to t he call EMS. While in the ED patient was hypotensive. Was given 3L NS with no improvement. Central line was placed and she was transferred to ICU for further assessment. Pulmonology was consulted. ID consulted. General surgery consulted. Wound care consulted. Patient on Levophed for blood pressure support, Zosyn and Vanco for empiric antibiotic coverage. Patient is off levophed. Patient was tr ansferred to regular medical floor. While inpatient patient was found to have blood culture is no growth to date, and was given vancomycin and Zosyn. The decision was made to c/w cefepime. Procalcitonin ordered, is 0.71. Abdominal culture with anaerobic porphyromonas somerae, and wound culture strep a Labs on discharge WBC 8.61 hemoglobin 9.0 MCV 73.2 platelets 17.6, sodium 139, potassium 4.4, bicarb 31.1, creatinine 0.5, glucose 148. Upon examination today patient has improved and is feeling well, afebrile and is stable and cleared for discharge. Patient to continue antibiotics, per infectious disease recommendations. And follow-up with PCP. PHYSICAL EXAMINATION: Physical examination: General: no distress, appears at stated age, obese Derm: no unusual rashes/lesions, warm Head: atraumatic, normocephalic, symmetric Eyes: EOMI, anicteric sclera, pupils equal round reactive to light ENT: Nose and ears atraumatic Mouth: no lip lesion, mucus membranes moist Cardiovascular: S1S2 reg, no murmur, positive dorsalis pedis pulse bilateral, no edema Lungs: CTA bilateral, no rhonchi, no rales, no accessory muscle use Abdominal: soft, tender to palpation, ~10 cm ulceration lower left abdomen , erythema or drainage, no wound vac Ext: muscle strength 5 out of 5 in all 4 extremities grossly, no gross muscle atrophy Neuro: CN II-XI grossly intact, no gross focal neuro deficits Psych: lethargic arousable, oriented to person, place, and time Dictation was produced using [email or web address] dictation software. please excuse any grammatical, word or spelling errors. I saw and evaluated the patient during the sawyer and critical portions of this encounter, and discussed the case in detail with the resident author of this note, I agree with the Assessment and Plan, and my changes, if any, are highlighted in blue. Patient Condition at Discharge: Stable Plan - Discharge Summary New Discharge Prescriptions: New Amoxic-Pot Clav 875-125Mg [Augmentin 875-125] 1 tab PO BID 10 Days #20 tab Continue Levothyroxine Sodium [Synthroid] 175 mcg PO DAILY Furosemide [Lasix] 20 mg PO DAILY Ferrous Sulfate [Iron (65 MG Elemental)] 325 mg PO DAILY Sertraline [Zoloft] 100 mg PO DAILY Glimepiride [Amaryl] 4 mg PO DAILY Acetaminophen Tab [Tylenol] 1,000 mg PO Q6HR PRN #30 tablet PRN Reason: Pain metFORMIN HCL 1,000 mg PO DAILY Tolterodine ER [Detrol LA] 4 mg PO DIRECTED Discharge Medication List Glimepiride [Amaryl] 4 mg PO DAILY 12/20/23 [History] Levothyroxine Sodium [Synthroid] 175 mcg PO DAILY 12/20/23 [History] Sertraline [Zoloft] 100 mg PO DAILY 12/20/23 [History] Acetaminophen Tab [Tylenol] 1,000 mg PO Q6HR PRN #30 tablet 05/07/24 [Rx] Ferrous Sulfate [Iron (65 MG Elemental)] 325 mg PO DAILY 05/28/24 [History] Furosemide [Lasix] 20 mg PO DAILY 05/28/24 [History] Tolterodine ER [Detrol LA] 4 mg PO DIRECTED 05/28/24 [History] metFORMIN HCL 1,000 mg PO DAILY 05/28/24 [History] Amoxic-Pot Clav 875-125Mg [Augmentin 875-125] 1 tab PO BID 10 Days #20 tab 06/02/24 [Rx] Follow up Appointment(s)/Referral(s): Samuel Melgar MD [Primary Care Provider] - 1-2 days [facility], [NON-STAFF] - As Needed Patient Instructions/Handouts: Wound Infection (DC) Discharge Disposition: HOME SELF-CARE
[2024-06-02] MEDS: metroNIDAZOLE 500 MG TAB PO SCH (16:49)
--- NOTE | 2024-06-02 18:29 | P.PN ---
Subjective Progress Note Date: 06/02/24 Pneumonia. Patient is a 58-year-old white female with past medical history significant for hernia repair at outside facility. Developed subsequent abdominal wall seroma, which was thought to be infected. Underwent I&D by Dr. Jasso 02/05/2024. She ended up with a wound VAC. Had recurrent fluid collection, and had a another I&D with wound debridement on 05/05/24. She has been following up at the wound care clinic. Also, has home health care that visits her multiple times per week. She also has history of asthma, diabetes mellitus, hypothyroidism, PE (not currently on anticoagulation), cerebral palsy, obesity. PCP is Dr. Melgar. Over the last couple days, patient has been reportedly more lethargic at home. Patient states that she ran out of wound care dressings and supplies at home. She removed her wound VAC. Has had a lot of drainage from her abdominal wall wo und. She called EMS. While being evaluated the emergency department, she was found to be hypotensive she was fluid resuscitated with a total of 3 L crystalloid fluid bolus. Normal saline continues at 130 mL/h. Despite this, remained hypotensive, and was started on low-dose norepinephrine which is currently infusing at 0.05 mcg/kg/min. She is currently in the intensive care unit, room 266. She is lethargic, answers most of my questions appropriately. Technically oriented x 3. She denies any current complaints. Her abdominal wall wound is surrounded by macerated tissue. The wound bed itself is mostly granulation tissue. There is a cloudy pink to brown colored fluid that is foul-smelling. Appropriate cultures were taken. She is covered on broad- spectrum antibiotics in the form of Zosyn and vancomycin. Current blood pressure is reading 92/62 mmHg. Heart rate appears normal sinus on the bedside monitor with a rate of 60 bpm. She is resting comfortably on 3 L/min nasal cannula. SpO2 98%. She is currently afebrile, however, did spike of temperature of 101 F in the emergency department. Chest x-ray done arrival in the emergency department shows cardiomegaly with a left lower lobe opacity. 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 This could be atele ctasis versus infectious process. Patient denies any shortness of breath, cough with sputum production, chest pain, hemoptysis. Denies sick contacts. Tested negative for COVID on arrival. CBC: WBC count 7.5, hemoglobin 9.6, hematocrit 30.6, platelets 244. She has chronic microcytic hypochromic anemia. CMP: Sodium 134, potassium 2.8, chloride 95, serum bicarb 31, BUN 22, creatinine 0.61, blood glucose 250. LFTs mildly elevated. Lactic 1.5. Urinalysis not particular remarkable for infection. Rare bacteria. She denies any urinary complaints. Prognosis is guarded. Patient was evaluated this morning on 05/30/2024. She is alert and oriented, not in acute distress. She is saturating at 96% on nasal cannula at 2L/min. Her CXR on 05/29 showed some atelectasis at left lung base. Gallbladder ultraasound on 05/28 showed prominent common bile duct, may consider further evaluation with MRCP. She is currently receiving Vancomycin/Cefepime, normal saline at 100cc /hr, and norepinephrine 0.01 mcg/kg/min. CT Abdomen and Pelvis with IV contrast ordered per surgery. Her CBC showed WBC count of 10.8, hemoglobin 8.9, platelet 257. Her CMP showed sodium 140, potassium 3.8. Procalcitonin of 0.71 on 05/28/2024. Urine culture was negative. Pending final blood culture results. Urinalysis not particular remarkable for infection. Prognosis is guarded. Patient was evaluated this morning on 05/31/2024. She is alert and oriented, not in acute distress. She is currently saturating at 96% on nasal cannula at 2L/min. Her CT Abdomin/Pelvis done on 05/30 showed generalized anasarca change, correlate for third spacing. Edematous gallbladder wall thickening, extensive opacity at left lower base of the lung, signs of esophagitis, and hazy density surrounding pancreas were also shown on the CT. She is currently receiving Vancomycin and Cefepime which covers the positive Strep A growth in the wound c ulture. She is also receiving normal saline at 100 cc/hr. We will decrease the NS infusion rate to 50 cc/hr. Norepinephrine has been discontinued. Patient has stable blood pressure. Her CBC showed WBC count of 7.3, hemoglobin 8.3, platelet 232. Her CMP showed sodium 137, potassium 4.3, BUN 19, creatinine 0.57. Procalcitonin of 0.71 on 05/28/2024. Urine culture was negative. Pending final blood culture results. Urinalysis not particular remarkable for infection. Patient is stable enough to be transferred to the general medical floor. Progress note dated June 01, 2024. The patient was moved out of the intensive care unit, and is seen today in room 461. Currently, she is on 2 L nasal cannula. She is receiving cefepime. The wound cultures, showed evidence of group a streptococcus. She denies any shortness of breath, cough, wheezing, or chest tightness. She was initially mated with a diagnosis of sepsis. She did require fluid resuscitation, and norepinephrine. Current laboratory data includes a white count of 7, hemoglobin 8.7, hematocrit 27.9, and platelet count 242,000. Sodium 131, potassium 4.1, chlorides 101, CO2 33, BUN 17, creatinine 0.49. Glucose was 192. Calcium 8.8. 06/02/2024, patient is being seen for a follow-up. The patient is resting comfortably in the chair. Has no specific complaints. She is currently on room air oxygen and the patient was taken off the nasal cannula this morning and she is able to maintain saturation above 90 to 91%. The patient has no cough or sputum production. No chest tightness or wheezing. Abdominal wound is dry clean and intact. BUN is 18 with a creatinine of 0.7 and sodium is 139, the white cell count is 8.6 with a hemoglobin 9.0. She is afebrile. No other significant events overnight. Feeling a bit weak. Objective - Vital Signs Vital signs: Vital Signs Temp 97.3 F L 06/02/24 08:00 Pulse 72 06/02/24 11:37 Resp 18 06/02/24 08:00 BP 116/80 06/02/24 08:00 Pulse Ox 95 06/02/24 11:16 FiO2 Intake & Output 06/01/24 06/02/24 06/02/24 18:59 06:59 18:59 Intake Total 800 Output Total 400 Balance 400 Weight 109.9 kg Intake: IV 600 Sodium Chloride 0.9% 1, 600 000 ml @ 50 mls/hr IV . Q20H [facility] Rx#:[id number] Intake, IV Titration 200 Amount Cefepime 2 gm In Sodium 200 Chloride 0.9% 100 ml @ 25 mls/hr IVPB Q8HR [facility] Rx# :[id number] Output: Urine 400 Other: Voiding Method External Catheter # Voids 1 2 # Bowel Movements 1 1 - Exam No acute distress, oriented 3. Currently on room air oxygen HEENT examination is grossly unremarkable. Mucous membranes are moist. No oral lesions. Neck supple. Full range of motion. No adenopathy thyromegaly or neck vein distention. Cardiovascular examination reveals regular rhythm rate. S1-S2 normal. No S3 or S4. No discernible murmur noted. Heart rate 80 bpm. Lungs reveal scattered rhonchi. No wheezes or crackles. Abdomen obese, but soft. Midline abdominal wound noted. Bowel sounds are olga reciated. Extremities are intact. No cyanosis clubbing or edema. Skin is without rash or lesion. Neurologic examination is brief but nonfocal. - Labs CBC & Chem 7: 06/02/24 06:26 06/02/24 06:26 Labs: Abnormal Lab Results - Last 24 Hours (Table) 06/01/24 06/01/24 06/02/24 Range/Units 17:01 20:32 06:26 Hgb (12.0-15.0) g/dL Hct (37.2-46.3) % MCV (80.0-97.0) FL MCH (27.0-32.0) pg MCHC (32.0-37.0) g/dL RDW (11.5-14.5) % Basophils # (Manual) (0.00-0.10) X 10*3/uL NRBC/100 WBC Diff (0.00-0.01) X 10*3/uL Hypochromasia (manual) Microcytosis (manual) Elliptocytes Creatinine 0.5 L (0.6-1.5) mg/dL BUN/Creatinine Ratio 36.60 H (12.00-20.00) Ratio Glucose 148 H (70-110) mg/dL POC Glucose (mg/dL) 186 H 176 H (70-110) mg/dL 06/02/24 06/02/24 06/02/24 Range/Units 06:26 06:30 11:09 Hgb 9.0 L (12.0-15.0) g/dL Hct 31.4 L (37.2-46.3) % MCV 73.2 L (80.0-97.0) FL MCH 21.0 L (27.0-32.0) pg MCHC 28.7 L (32.0-37.0) g/dL RDW 17.6 H (11.5-14.5) % Basophils # (Manual) 0.26 H (0.00-0.10) X 10*3/uL NRBC/100 WBC Diff 0.02 H (0.00-0.01) X 10*3/uL Hypochromasia (manual) 2+ A Microcytosis (manual) 2+ A Elliptocytes 2+ A Creatinine (0.6-1.5) mg/dL BUN/Creatinine Ratio (12.00-20.00) Ratio Glucose (70-110) mg/dL POC Glucose (mg/dL) 169 H 198 H (70-110) mg/dL Microbiology - Last 24 Hours (Table) 05/28/24 00:32 Anaerobic Culture - Final Abdomen Porphyromonas somerae Assessment and Plan Plan: Hypotension, secondary to sepsis, requiring fluid resuscitation, and vasopressors, resolved. Acute febrile illness, secondary to sepsis, recovered Abdominal wall wound, status post drainage of a seroma, dressing has been applied and the dressing is clean and dry at this point in time. History of ventral abdominal hernia repair at outside facility, subsequently developed seroma, with I&D by Dr. Jasso 02/05/2024. Acute hypoxemic respiratory failure, currently on room air oxygen Microcytic, hypochromic anemia. Diabetes mellitus type 2. History of hypothyroidism. History of pulmonary embolism. History of mild intermittent asthma. Obesity, with a BMI of 38.8 kg/m. History of depression. Plan: The abdominal wound showed evidence of group A Streptococcus. The patient continues on antibiotics in the form of cefepime. The patient's overall situation has improved. Hemodynamically stable Respiratory status stable the patient is currently on room air oxygen General surgery is on the case
--- NOTE | 2024-06-03 13:15 | P.PN ---
Subjective Progress Note Date: 06/02/24 Principal diagnosis: Reason for follow-up is sepsis and abdominal wound infection Patient is a 58-year-old female with a past medical history nephric and for diabetes mellitus osteoarthritis PE hypothyroidism in this patient who did have a ventral hernia repair complicated by development of a seroma that has been drained on multiple occasion now presenting with sepsis increasing drainage from abdominal wound concerning for wound infection. On today's evaluation that is 06/02/2024, Patient is afebrile this morning patient denies having any chest pain shortness of breath or cough, the patient is breathing comfortably on room air, patient denies any abdominal pain no diarrhea no nausea no vomiting, patient mention feeling better wants to go home. Patient white count is 8.61, creatinine 0.5 abdominal culture with strep anaerobe Objective - Vital Signs Vital signs: Vital Signs Temp 97.3 F L 06/02/24 08:00 Pulse 72 06/02/24 11:37 Resp 18 06/02/24 08:00 BP 116/80 06/02/24 08:00 Pulse Ox 95 06/02/24 11:16 FiO2 Intake & Output 06/01/24 06/02/24 06/02/24 18:59 06:59 18:59 Intake Total 800 Output Total 400 Balance 400 Weight 109.9 kg Intake: IV 600 Sodium Chloride 0.9% 1, 600 000 ml @ 50 mls/hr IV . Q20H [facility] Rx#:[id number] Intake, IV Titration 200 Amount Cefepime 2 gm In Sodium 200 Chloride 0.9% 100 ml @ 25 mls/hr IVPB Q8HR [facility] Rx# :[id number] Output: Urine 400 Other: Voiding Method External Catheter # Voids 1 2 # Bowel Movements 1 1 - Exam GENERAL DESCRIPTION: Middle-age female lying in bed in no distress RESPIRATORY SYSTEM: Unlabored breathing , decreased breath sounds at bases HEART: S1 S2 regular rate and rhythm , ABDOMEN: Soft , no tenderness EXTREMITIES: No edema feet - Labs CBC & Chem 7: 06/02/24 06:26 06/02/24 06:26 Labs: Abnormal Lab Results - Last 24 Hours (Table) 06/01/24 06/01/24 06/02/24 Range/Units 17:01 20:32 06:26 Hgb (12.0-15.0) g/dL Hct (37.2-46.3) % MCV (80.0-97.0) FL MCH (27.0-32.0) pg MCHC (32.0-37.0) g/dL RDW (11.5-14.5) % Basophils # (Manual) (0.00-0.10) X 10*3/uL NRBC/100 WBC Diff (0.00-0.01) X 10*3/uL Hypochromasia (manual) Microcytosis (manual) Elliptocytes Creatinine 0.5 L (0.6-1.5) mg/dL BUN/Creatinine Ratio 36.60 H (12.00-20.00) Ratio Glucose 148 H (70-110) mg/dL POC Glucose (mg/dL) 186 H 176 H (70-110) mg/dL 06/02/24 06/02/24 06/02/24 Range/Units 06:26 06:30 11:09 Hgb 9.0 L (12.0-15.0) g/dL Hct 31.4 L (37.2-46.3) % MCV 73.2 L (80.0-97.0) FL MCH 21.0 L (27.0-32.0) pg MCHC 28.7 L (32.0-37.0) g/dL RDW 17.6 H (11.5-14.5) % Basophils # (Manual) 0.26 H (0.00-0.10) X 10*3/uL NRBC/100 WBC Diff 0.02 H (0.00-0.01) X 10*3/uL Hypochromasia (manual) 2+ A Microcytosis (manual) 2+ A Elliptocytes 2+ A Creatinine (0.6-1.5) mg/dL BUN/Creatinine Ratio (12.00-20.00) Ratio Glucose (70-110) mg/dL POC Glucose (mg/dL) 169 H 198 H (70-110) mg/dL Microbiology - Last 24 Hours (Table) 05/28/24 00:32 Anaerobic Culture - Final Abdomen Porphyromonas somerae Assessment and Plan (1) Septic shock Status: Acute Code(s): A41.9 - SEPSIS, UNSPECIFIED ORGANISM; R65.21 - SEVERE SEPSIS WITH SEPTIC SHOCK SNOMED Code(s): 72959280 (2) Open abdominal wall wound Status: Acute Code(s): S31.109A - UNSP OPN WND ABD WALL, UNSP Q W/O PENET PERIT CAV, INIT SNOMED Code(s): 067972886 (3) Abdominal wall cellulitis Status: Acute Code(s): L03.311 - CELLULITIS OF ABDOMINAL WALL SNOMED Code(s): 20378860 Plan: 1patient with sepsis in this patient who did have a fever hypotension tachycardia meeting criteria for SIRS source likely abdominal as currently no other obvious focus of infection chest x-ray no pneumonia urine has been negative patient did have complicated abdominal history with development of seroma post ventral hernia repair and now being admitted to hospital with increasing drainage with some surrounding skin excoriation. [address] abdominal pelvis with no evidence of any intra-abdominal abscess concerning for possible left lower lobe pneumonia 3-blood cultures are so far negative and local culture growing group A strep as well as anaerobe 4-patient did have clinical improvement, patient feeling better wants to go home will finish therapy with oral Augmentin prescription has been sent to the pharmacy Dictation was produced using [employer] dictation software. please excuse any grammatical, word or spelling errors. Time with Patient: Less than 30
== END 2024-06-02 17:28 | disposition home or self-care (01) | DRG 871 ==
LOC: EC 15:55 → 2SICU 17:55 → 4SSUR 05-31 15:44
PROVIDERS: ADMIT Internal Medicine; ATTEND Internal Medicine
DX: A41.9 Sepsis, unspecified organism (principal); J96.01 Acute respiratory failure with hypoxia; R65.21 Severe sepsis with septic shock; Z68.41 Body mass index [BMI] 40.0-44.9, adult; E87.3 Alkalosis; J90 Pleural effusion, not elsewhere classified; J98.11 Atelectasis; L02.211 Cutaneous abscess of abdominal wall; L03.311 Cellulitis of abdominal wall; L98.495 Non-pressure chronic ulcer of skin of other sites with muscle involvement without evidence of necrosis; D50.9 Iron deficiency anemia, unspecified; E03.9 Hypothyroidism, unspecified; E11.622 Type 2 diabetes mellitus with other skin ulcer; E11.65 Type 2 diabetes mellitus with hyperglycemia; R21 Rash and other nonspecific skin eruption; J98.6 Disorders of diaphragm; E66.01 Morbid (severe) obesity due to excess calories; E87.6 Hypokalemia; R16.0 Hepatomegaly, not elsewhere classified; F32.A Depression, unspecified; M19.90 Unspecified osteoarthritis, unspecified site; F41.9 Anxiety disorder, unspecified; J45.20 Mild intermittent asthma, uncomplicated; Z20.822 Contact with and (suspected) exposure to COVID-19; T81.31XS Disruption of external operation (surgical) wound, not elsewhere classified, sequela; Z86.711 Personal history of pulmonary embolism; Z79.01 Long term (current) use of anticoagulants; Z79.4 Long term (current) use of insulin; Z79.84 Long term (current) use of oral hypoglycemic drugs; Z79.890 Hormone replacement therapy; Z79.899 Other long term (current) drug therapy; Z86.010 Personal history of colon polyps
CPT/HCPCS: 36415; 71045; 74177; 76705; 80048; 80053; 80202; 81001; 82140; 82533; 82565; 82803; 83036; 83605; 83735; 83880; 84100; 84145; 84443; 84484; 85025; 85610; 85730; 87040; 87070; 87075; 87077; 87086; 87186; 87205; 87449; 93005; 94640; 96361; 96365; 96367; 96368; 96375; 99285

== ENCOUNTER 2024-09-26 12:12 | Emergency (ER) | payer BC ==
[2024-09-26 12:23] VITALS: RESP 18; TEMP 97.8
--- NOTE | 2024-09-26 13:50 | ED ---
General Adult HPI - General Chief complaint: Fall Stated complaint: Fall Time Seen by Provider: 09/26/24 13:10 Source: patient, RN notes reviewed Mode of arrival: EMS - History of Present Illness Initial comments: 58-year-old female presents to the emergency department for evaluation of fall with head injury. Patient reports that she tripped walking into the doctor's office today. She hit her head on the left side. She denies blood thinners, loss of consciousness. Her family states that she is otherwise acting history of typical self. Patient is just reporting discomfort over the area that she hit. There are overlying abrasions to the area. - Related Data Home Medications Medication Instructions Recorded Confirmed Glimepiride [Amaryl] 4 mg PO DAILY 12/20/23 05/28/24 Levothyroxine Sodium [Synthroid] 175 mcg PO DAILY 12/20/23 05/28/24 Sertraline [Zoloft] 100 mg PO DAILY 12/20/23 05/28/24 Ferrous Sulfate [Iron (65 MG 325 mg PO DAILY 05/28/24 05/28/24 Elemental)] Furosemide [Lasix] 20 mg PO DAILY 05/28/24 05/28/24 Tolterodine ER [Detrol LA] 4 mg PO DIRECTED 05/28/24 05/28/24 metFORMIN HCL 1,000 mg PO DAILY 05/28/24 05/28/24 Previous Rx's Medication Instructions Recorded Acetaminophen Tab [Tylenol] 1,000 mg PO Q6HR PRN #30 tablet 05/07/24 Amoxic-Pot Clav 875-125Mg 1 tab PO BID 10 Days #20 tab 06/02/24 [Augmentin 875-125] Allergies Allergy/AdvReac Type Severity Reaction Status Date / Time No Known Allergies Allergy Verified 05/28/24 16:10 Review of Systems ROS Statement: Those systems with pertinent positive or pertinent negative responses have been documented in the HPI. ROS Other: All systems not noted in ROS Statement are negative. Past Medical History Past Medical History: Asthma, Diabetes Mellitus, Osteoarthritis (OA), Pulmonary Embolus (PE), Thyroid Disorder Additional Past Medical History / Comment(s): currently has wound vac to abdomen post abd surgery . hx of polyps History of Any Multi-Drug Resistant Organisms: None Reported Past Surgical History: Hernia Repair Additional Past Surgical History / Comment(s): ovarian cyst removal, colonoscopy, 01/2024 draining of abdominal fluid several times per pt with placement of wound vac. pt is poor historian Past Anesthesia/Blood Transfusion Reactions: No Reported Reaction, Motion Sickness Past Psychological History: Depression Smoking Status: Never smoker Past Alcohol Use History: Occasional Past Drug Use History: None Reported - Past Family History Sister(s) Family Medical History: Cancer Additional Family Medical History / Comment(s): breast cancer General Exam Limitations: no limitations General appearance: alert, in no apparent distress Head exam: Present: atraumatic, normocephalic, normal inspection Eye exam: Present: normal appearance, PERRL, EOMI. Absent: scleral icterus, conjunctival injection, periorbital swelling ENT exam: Present: normal exam, mucous membranes moist Neck exam: Present: normal inspection, full ROM. Absent: tenderness, meningismus, lymphadenopathy Respiratory exam: Present: normal lung sounds bilaterally. Absent: respiratory distress, wheezes, rales, rhonchi, stridor Cardiovascular Exam: Present: regular rate, normal rhythm, normal heart sounds. Absent: systolic murmur, diastolic murmur, rubs, gallop, clicks Extremities exam: Present: normal inspection, full ROM, normal capillary refill. Absent: tenderness, pedal edema, joint swelling, calf tenderness Neurological exam: Present: alert, oriented X3, CN II-XII intact Psychiatric exam: Present: normal affect, normal mood Skin exam: Present: warm, dry, normal color, abrasion (Left-sided forehead). Absent: intact Course Vital Signs 09/26/24 12:14 Temperature 97.8 F Pulse Rate 84 Respiratory 18 Rate Blood Pressure 105/70 O2 Sat by Pulse 94 L Oximetry Medical Decision Making - Medical Decision Making Was pt. sent in by a medical professional or institution (, PA, [employer], urgent care, hospital, or residential...) When possible be specific @ -No Did you speak to anyone other than the patient for history (EMS, parent, family, police, friend...)? What history was obtained from this source @ -No Did you review nursing and triage notes (agree or disagree)? Why? @ -I reviewed and agree with nursing and triage notes Were old charts reviewed (outside hosp., previous admission, EMS record, old EKG, old radiological studies, urgent care reports/EKG's, residential records)? Report findings @ -No old charts were reviewed Differential Diagnosis (chest pain, altered mental status, abdominal pain women, abdominal pain men, vaginal bleeding, weakness, fever, dyspnea, syncope, headache, dizziness, GI bleed, back pain, seizure, CVA, palpatations, mental health, musculoskeletal)? @ -Fall, head injury, intracranial hemorrhage, cervical spine fracture, this is not inclusive EKG interpreted by me (3pts min.). @ -None X-rays interpreted by me (1pt min.). @ -None done CT interpreted by me (1pt min.). @ -CT brain shows no evidence of acute intracranial process, no acute C-spine fracture or traumatic malalignment U/S interpreted by me (1pt. min.). @ -None done What testing was considered but not performed or refused? (CT, X-rays, U/S, labs)? Why? @ -None What meds were considered but not given or refused? Why? @ -None Did you discuss the management of the patient with other professionals (professionals i.e. , PA, [employer], lab, RT, psych nurse, social services specialist, sand mill grinder, teacher, military police officer, case resolution specialist)? Give summary @ -No Was smoking cessation discussed for >3mins.? @ -No Was critical care preformed (if so, how long)? @ -No Were there social determinants of health that impacted care today? How? (Homelessness, low income, unemployed, alcoholism, drug addiction, transportation, low edu. Level, literacy, decrease access to med. care, [facility], rehab)? @ -No Was there de-escalation of care discussed even if they declined (Discuss DNR or withdrawal of care, Hospice)? DNR status @ -No What co-morbidities impacted this encounter? (DM, HTN, Smoking, COPD, CAD, Cancer, CVA, ARF, Chemo, Hep., AIDS, mental health diagnosis, sleep apnea, morbid obesity)? @ -None Was patient admitted / discharged? Hospital course, mention meds given and route, prescriptions, significant lab abnormalities, going to OR and other pertinent info. @ -Discharge. Patient presented to emergency department for evaluation of fall with head injury. Denies loss of consciousness, blood thinners. CT brain was obtained revealing no acute intracranial process, no acute C-spine fracture or traumatic malalignment. Patient is at her baseline. She will be discharged home. Strict return precautions discussed. She is understanding agreeable with plan. Patient stable at time of discharge. Case discussed with Dr. Shields Undiagnosed new problem with uncertain prognosis? @ -No Drug Therapy requiring intensive monitoring for toxicity (Heparin, Nitro, Insulin, Cardizem)? @ -No Were any procedures done? @ -No Diagnosis/symptom? @ -Fall, head injury, abrasion Acute, or Chronic, or Acute on Chronic? @ -Acute Uncomplicated (without systemic symptoms) or Complicated (systemic symptoms)? @ -Uncomplicated Side effects of treatment? @ -No Exacerbation, Progression, or Severe Exacerbation? @ -No Poses a threat to life or bodily function? How? (Chest pain, USA, CT, pneumonia, PE, COPD, DKA, ARF, appy, cholecystitis, CVA, Diverticulitis, Homicidal, Suicidal, threat to staff... and all critical care pts) @ -No Disposition Clinical Impression: Fall, Head injury Disposition: HOME SELF-CARE Condition: Stable Instructions (If sedation given, give patient instructions): Fall Prevention (ED) Additional Instructions: Please follow-up with your primary care provider. Return to the emergency department for new or worsening symptoms. Is patient prescribed a controlled substance at d/c from ED?: No Referrals: Samuel Melgar MD [Primary Care Provider] - 1-2 days
--- NOTE | 2024-09-26 14:58 | CT ---
EXAMINATION TYPE: CT brain cspine wo con CT DLP: 1260.9 mGycm, Automated exposure control for dose reduction was used. DATE OF EXAM: 09/26/2024 2:38 PM COMPARISON: None.. CLINICAL INDICATION:Female, 58 years old with history of fall, head injury; Fall, no complaints TECHNIQUE: Brain: Multiple axial CT images of the brain were obtained without IV contrast. Cspine: Axial CT images from the skull base to the inferior aspect of T2 we obtained without intraven ous contrast. Coronal and sagittal reformatted images were also reviewed. FINDINGS: Brain: Extra-axial spaces: No abnormal extra-axial fluid collections. Ventricular system: Within normal limits Cerebral parenchyma: No acute intraparenchymal hemorrhage or mass effect. The brothers-white junction is well differentiated. Cerebellum: Unremarkable. Mass effect: No evidence of midline shift. Intracranial vasculature: unremarkable Soft tissues: Normal. Calvarium/osseous structures: No depressed skull fracture. Paranasal sinuses and mastoid air cells: Clear. Visualized orbits: Orbital contents are intact. Cervical spine: Fracture: None. Osseous structures: Multilevel facet arthropathy. Vertebral alignment: Degenerative grade 1 anterolisthesis of C2 on C3 and C3 on C4. Spinal canal/Neural Foramina: No evidence of significant spinal canal narrowing. Facet joint uncovert ebral joint arthropathy scattered throughout the cervical spine with varying degrees of neural forami nal stenosis. Neck soft tissues: Prevertebral soft tissues are within normal limits. Other: The airway is patent. The lung apices are clear. IMPRESSION: 1. No acute intracranial process. 2. No evidence of cervical spine fracture. 3. Mild multilevel facet arthropathy. 4. Degenerative grade 1 anterolisthesis of C2 on C3 and C3 on C4. [facility], , 09/26/2024 2:56 PM
[2024-09-26] MEDS: DIPH,PERTUS(ACELL)TETVAC-LF 0.5 ML VIAL IM ONE (16:16)
[2024-09-26 16:20] VITALS: BP 101/70; PULSE 71
== END 2024-09-26 16:20 | disposition home or self-care (01) ==
LOC: EC 12:12
DX: S09.90XA Unspecified injury of head, initial encounter (principal); Z23 Encounter for immunization; W01.0XXA Fall on same level from slipping, tripping and stumbling without subsequent striking against object, initial encounter
CPT/HCPCS: 70450; 72125; 90471; 90715; 99284

== ENCOUNTER → 2024-11-11 | Outpatient (CLI) | payer BC, OTHER | END | disposition home or self-care (01) | LOC: LABWHC1 08:49 | PROVIDERS: ATTEND Urology | DX: N39.46 Mixed incontinence (principal) | CPT/HCPCS: 36415; 93005 ==